=== PATIENT | female | born 1950 | race African-American/Black ===

== ENCOUNTER 2024-03-24 08:45 | Outpatient (CLI) | payer MEDICARE, SELFPAY ==
[2024-03-24 09:29] LABS: Anion Gap 8 mmol/L (4-12); Blood Urea Nitrogen 17 mg/dL (7-17); Calcium 9.5 mg/dL (8.4-10.2); Carbon Dioxide 31 mmol/L (22-30); Chloride 103 mmol/L (98-107); Estimated Glomerular Filt Rate > 60; Glucose 122 mg/dL (65-110); Potassium 4.2 mmol/L (3.4-5.0); Sodium 142 mmol/L (137-145)
[2024-03-24 09:33] LABS: Hemoglobin A1C 6.5 % (<5.7)
[2024-03-24 09:35] LABS: Creatinine Urine 31.8 mg/dL
[2024-03-24 09:40] LABS: MALB Creatinine Ratio 19.5 mg/g (0-30); Microalbumin Urine Random 6.2 mg/L (0-16.7)
[2024-03-24 09:51] LABS: Free T4 Free Thyroxine 1.65 ng/mL (0.78-2.19)
[2024-03-24 10:37] LABS: Folic Acid 6.7 ng/mL (2.76->20); Vitamin B12 > 1000.0 pg/mL (239-931)
[2024-03-24 11:26] LABS: Thyroid Stimulating Hormone 0.404 uIU/mL (0.465-4.680)
== END 2024-03-24 08:46 | disposition home or self-care (01) ==
LOC: ANHLAB 08:47
PROVIDERS: PCP Internal Medicine; Visit Provider Internal Medicine
DX: E03.9 Hypothyroidism, unspecified (principal); E53.8 Deficiency of other specified B group vitamins; I10 Essential (primary) hypertension; E11.9 Type 2 diabetes mellitus without complications; Z79.899 Other long term (current) drug therapy
CPT/HCPCS: 36415; 80048; 82043; 82607; 82746; 83036; 84439; 84443

== ENCOUNTER 2024-04-10 10:21 | Outpatient (CLI) | payer MEDICARE, SELFPAY ==
--- NOTE | ~2024-04-10 | US_ITS ---
EXAMINATION: US carotid duplex BI DATE: 04/10/2024 11:11 INDICATION: Other specified symptoms and signs involving the circulatory system. TECHNIQUE: Grayscale, color Doppler, and pulsed Doppler images of the cervical carotid arteries were obtained. The degree of vessel stenosis is placed in one of the following categories: normal, <50%, 5 0-69%, >=70% but less than near-occlusion, near-occlusion, or total occlusion. Note that percent sten osis relative to normal distal artery lumen diameter is indirectly measured from velocity measurement s as described by Ari, et al. Radiology 2003; 229:340-346. COMPARISON: None. FINDINGS: RIGHT: The right common carotid artery (CCA) peak systolic velocity (PSV) is 44 cm/s. The right internal car otid artery (ICA) PSV is 71 cm/s. The right ICA end-diastolic velocity (EDV) is 29 cm/s. The right IC A/CCA PSV ratio is 1.6. Grayscale and color Doppler images yield an estimate of <50% diameter reducti on from plaque in the ICA. The external carotid artery (ECA) PSV is 45 cm/s. There is antegrade flow in the right vertebral artery. LEFT: The left CCA PSV is 38 cm/s. The left ICA PSV is 20 cm/s. The left ICA EDV is 26 cm/s. The left ICA/C CA PSV ratio is 1.9. Grayscale and color Doppler images yield an estimate of <50% diameter reduction from plaque in the ICA. The ECA PSV is 37 cm/s. There is antegrade flow in the left vertebral artery. IMPRESSION: 1. <50% stenosis in the right internal carotid artery. 2. <50% stenosis in the left internal carotid artery. 3. Cardiac arrhythmia is present. Correlate with EKG. Reviewed, dictated and finalized at location A. [employer]
== END 2024-04-10 10:22 | disposition home or self-care (01) ==
PROVIDERS: PCP Internal Medicine; Visit Provider Internal Medicine
DX: R09.89 Other specified symptoms and signs involving the circulatory and respiratory systems (principal); I65.23 Occlusion and stenosis of bilateral carotid arteries
CPT/HCPCS: 93880

== ENCOUNTER 2024-10-09 09:07 | Outpatient (CLI) | payer MEDICARE, SELFPAY ==
--- OUTSIDE RECORDS SUMMARY | 2024-10-09 09:23 | XMS_ITS | Clinical Summary ---
Author Organization [facility] Address [address] [place] [address] Care Team Providers Care Certified Ju[employer]ation Officer Name Role Phone Roxanne Werner MD Unavailable Ata Bronson DPM Unavailable Jeannie Graham MD Primary Care Provider Allergies Active Allergy Reactions Criticality Noted Date Comments Sulfa (Sulfonamide Antibiotics) Itching Low 10/2012 Medications cyanocobalamin (Vitamin B-12) 1,000 mcg sublingual tablet Take 1 tablet (1,000 mcg total) by mouth daily Active cholecalciferol, vitamin D3, (VITAMIN D3 ORAL) Take 2,000-5,000 Units by mouth daily 3 Active meclizine (ANTIVERT) 12.5 mg tablet Take 1 tablet (12.5 mg total) by mouth 3 (three) times a day as needed for dizziness Active ondansetron (ZOFRAN) 4 mg tablet Take 1 tablet (4 mg total) by mouth every 8 (eight) hours as needed for nausea or vomiting Active prochlorperazine (COMPAZINE) 10 mg tablet Take 1 tablet (10 mg total) by mouth every 6 (six) hours as needed for nausea or vomiting Active cyclobenzaprine (FLEXERIL) 10 mg tablet Take 1 tablet (10 mg total) by mouth 3 (three) times a day as needed for muscle spasms Active potassium chloride ER (Klor-Con M20) 20 mEq CR tablet Take 1 tablet (20 mEq total) by mouth daily 90 tablet 3 4 Active metoprolol tartrate (LOPRESSOR) 50 mg immediate release tabletIndications: Essential hypertension, benign TAKE 1 TABLET BY MOUTH TWICE DAILY 180 tablet 3 4 Active furosemide (LASIX) 20 mg tabletIndications: Diastolic dysfunction TAKE 1 TABLET BY MOUTH EVERY DAY 90 tablet 3 4 Active NIFEdipine XL 60 mg 24 hr tablet TAKE 1 TABLET BY MOUTH DAILY 90 tablet 3 4 Active oxyBUTYnin (DITROPAN) 5 mg tablet TAKE 1 TABLET BY MOUTH TWICE DAILY 200 tablet 3 4 Active rosuvastatin (CRESTOR) 5 mg tablet TAKE 1 TABLET BY MOUTH DAILY AT NIGHT 100 tablet 3 4 Active metFORMIN (GLUCOPHAGE) 500 mg tablet Take 1 tablet (500 mg total) by mouth 2 (two) times a day 4 Active dapagliflozin propanediol (FARXIGA) 5 mg tablet Take 1 tablet (5 mg total) by mouth daily Active warfarin (COUMADIN) 1 mg tablet Take 1 tablet (1 mg total) by mouth daily 30 tablet 11 5 Active levothyroxine (SYNTHROID) 112 mcg tabletIndications: Postoperative hypothyroidism TAKE 1 TABLET BY MOUTH EARLY IN THE MORNING BEFORE BREAKFAST 90 tablet 5 Active warfarin (COUMADIN) 4 mg tabletIndications: PAF (paroxysmal atrial fibrillation) (HCC) TAKE 1 TABLET (4 MG TOTAL) BY MOUTH DAILY PATIENT MUST HAVE LABS DRAWN BEFORE ANY MORE REFILLS CAN BE GIVEN. 30 tablet 2 5 11/27/19 25 Active Active Problems Problem Noted Date Diagnosed Date Atrial fibrillation 05/17/2024 Hepatitis B core antibody positive 01/26/2024 Overview (01/26/2024): Resolved infection. Recheck in 1 year Chronic pain of left ankle 12/15/2023 Assessment & Plan (01/19/2024 12:53 PM CDT): -not at goal -advised patient to keep scheduled appointment with Podiatry on 01/20/2024 Assessment & Plan (12/15/2023 1:33 PM CDT): -festus -Hernando criteria for DVT: 0 -left ankle x-ray ordered today -referral placed to Podiatry -advised patient apply ice 3 times a day for 10-15 minutes at a time and elevate the foot when possible -recommend OTC ibuprofen 400 mg 2-3 times daily as needed to help with pain and swelling -follow up as needed Swelling of left ankle joint 12/15/2023 Assessment & Plan (12/15/2023 1:34 PM CDT): -new -Hernando criteria for DVT: 0 -left ankle x-ray ordered today -referral placed to Podiatry -advised patient apply ice 3 times a day for 10-15 minutes at a time and elevate the foot when possible -recommend OTC ibuprofen 400 mg 2-3 times daily as needed to help with pain and swelling -recommend going to ED if experiencing worsening swelling/pain or if extremity is hot to the touch -follow up as needed Nausea 07/12/2023 Assessment & Plan (07/14/2023 2:07 PM SQL ARCHITECT): -chronic, stable -Discussed/ordered labs -continue on Compazine 10 mg every 6 hours as needed Vitamin B12 deficiency 07/12/2023 Assessment & Plan (01/17/2024 8:01 AM CDT): -chronic, stable -Discussed/ordered labs -continue on OTC vitamin B12 supplement daily Assessment & Plan (07/14/2023 2:08 PM SQL ARCHITECT): -chronic, unknown, no data to review at this time to make an evaluation -Discussed/ordered labs -continue on OTC vitamin B12 supplement daily Vitamin D deficiency 07/12/2023 Assessment & Plan (01/17/2024 8:00 AM CDT): -chronic, stable -Discussed/ordered labs -continue on vitamin D3 supplement 5000 units daily Assessment & Plan (07/14/2023 2:08 PM SQL ARCHITECT): -chronic, unknown, no data to review at this time to make an evaluation -Discussed/ordered labs -continue on vitamin D3 supplement 5000 units daily Chronic cough 01/27/2023 Assessment & Plan (01/19/2024 12:53 PM CDT): -chronic, stable -Discussed/ordered labs -patient reports she stopped taking Flonase -continue follow up with the ENT as needed Assessment & Plan (07/14/2023 2:04 PM SQL ARCHITECT): -chronic, stable -Discussed/ordered labs -continue on Flonase 2 sprays per nostril daily -continue follow up with the ENT Assessment & Plan (02/09/2023 9:24 AM CDT): Will order PFT. She is follow-up with ENT in March. Pending PFT results will consider referral to pulmonology as well. Differential includes her chronic heart failure, GERD, allergic rhinitis, Assessment & Plan (01/27/2023 9:15 AM CDT): Flonase 2 sprays into each nostril while looking down over the sink, do not sniff in or blow nose after use for at least 30 minutes daily Zpak with a meal daily Follow up in 6 weeks for recheck Vertigo 50 ounces of caffeine free and soda free fluid daily Dysfunction of both eustachian tubes 01/27/2023 Assessment & Plan (01/27/2023 9:15 AM CDT): Flonase 2 sprays into each nostril while looking down over the sink, do not sniff in or blow nose after use for at least 30 minutes daily Zpak with a meal daily Follow up in 6 weeks for recheck Vertigo 50 ounces of caffeine free and soda free fluid daily Dizziness and giddiness 01/27/2023 Assessment & Plan (07/14/2023 2:05 PM SQL ARCHITECT): -chronic, stable -Discussed/ordered labs -continue on Flonase 2 sprays per nostril daily and meclizine 12.5 mg 3 times daily as needed -continue seeing ENT Assessment & Plan (03/19/2023 9:11 AM SQL ARCHITECT): Continue the Nasal saline and Flonase Call if Dizziness does not continue to improve 50 ounces of caffeine free and soda free fluid daily Assessment & Plan (02/09/2023 9:25 AM CDT): Improved. Assessment & Plan (01/27/2023 9:15 AM CDT): Follow up in 6 weeks for recheck Vertigo 50 ounces of caffeine free and soda free fluid daily Hypertensive kidney disease with stage 3a chronic kidney disease 10/21/2022 Assessment & Plan (01/19/2024 12:53 PM CDT): -chronic, stable -Discussed/ordered labs -continue seeing Cardiology -continue seeing Nephrology -continue on Eliquis 5 mg every 12 hours, furosemide 20 mg daily, metoprolol 50 mg twice daily, nifedipine XL 60 mg daily, potassium ER 20 mEq twice daily, Rosuvastatin 5 mg daily Assessment & Plan (07/14/2023 2:03 PM SQL ARCHITECT): -chronic, stable -Discussed/ordered labs -continue seeing Cardiology -continue seeing Nephrology -continue on Eliquis 5 mg every 12 hours, furosemide 20 mg daily, metoprolol 50 mg twice daily, nifedipine XL 60 mg daily, potassium ER 20 mEq twice daily, Rosuvastatin 5 mg daily Assessment & Plan (05/04/2023 3:52 PM SQL ARCHITECT): Stable. Blood pressure is well controlled today. Last GFR was 44. Recheck BMP today. Will refer back to Nephrology Assessment & Plan (10/21/2022 8:56 AM CDT): Blood pressure well controlled. gfr 40. Will continue to monitor. Recheck bmp in 3 months. Diastolic dysfunction 10/21/2022 Overview (10/21/2022): Monitor for SOB, fatigue, weight gain, etc. Assessment & Plan (07/14/2023 2:02 PM SQL ARCHITECT): -chronic, stable -Discussed/ordered labs -continue seeing Cardiology -continue on Eliquis 5 mg every 12 hours, furosemide 20 mg daily, metoprolol 50 mg twice daily, nifedipine XL 60 mg daily, potassium ER 20 mEq twice daily, Rosuvastatin 5 mg daily Assessment & Plan (05/04/2023 3:53 PM SQL ARCHITECT): History of diastolic dysfunction. Patient follows with Cardiology. Continues on Lasix 20 mg once daily. She is also on potassium gluconate. Continues to have swelling in her ankles but denies any shortness a breath or fatigue today. Assessment & Plan (10/21/2022 8:47 AM CDT): Stable. Continue furosemide. Continue to follow up with cardiology. Hyperlipidemia 10/14/2022 Assessment & Plan (01/17/2024 8:00 AM CDT): -chronic, stable -Discussed/ordered labs -continue seeing Cardiology -continue on Eliquis 5 mg every 12 hours, furosemide 20 mg daily, metoprolol 50 mg twice daily, nifedipine XL 60 mg daily, potassium ER 20 mEq twice daily, Rosuvastatin 5 mg daily Assessment & Plan (07/14/2023 2:03 PM SQL ARCHITECT): -chronic, stable -Discussed/ordered labs -continue seeing Cardiology -continue on Eliquis 5 mg every 12 hours, furosemide 20 mg daily, metoprolol 50 mg twice daily, nifedipine XL 60 mg daily, potassium ER 20 mEq twice daily, Rosuvastatin 5 mg daily Sound sensitivity in right ear 08/06/2022 Assessment & Plan (08/10/2022 9:05 AM CDT): This is a new problem echo right ear. May have a slight fluid behind ear drum. May try fluticasone nasal spray daily for 4-8 weeks, but I told her if it is does not improve, she needs to go to audiology for hearing exam. Was going to refer today, but pt wished to wait and see if it would improve. Edema of both ankles 06/18/2022 Assessment & Plan (07/14/2023 2:06 PM SQL ARCHITECT): -chronic, stable -Discussed/ordered labs -continue seeing Cardiology -continue on Eliquis 5 mg every 12 hours, furosemide 20 mg daily, metoprolol 50 mg twice daily, nifedipine XL 60 mg daily, potassium ER 20 mEq twice daily, Rosuvastatin 5 mg daily Assessment & Plan (06/18/2022 11:11 AM SQL ARCHITECT): HPI: Condition is not at/near goal swelling goes down overnight A&P: Discussed/ordered labs, encouraged healthy, low carbohydrate lifestyle and at least 150min/week of exercise Monitor sodium intake to see how much you are really taking in. Should be equal to or lower than 2000mg of sodium daily Continue taking furosemide 20mg once daily. Work on increasing leg elevation during the day Get Up and walking Wear compression stockings Chronic right shoulder pain 06/18/2022 Assessment & Plan (06/18/2022 11:14 AM SQL ARCHITECT): HPI: Condition is not at/near goal A&P: Discussed/ordered labs, encouraged healthy, low carbohydrate lifestyle and at least 150min/week of exercise. Pt reports that her R shoulder has been hurting over the past month. Pt states that she thinks it may be from babysitting her grandson and picking him up. Pt denies any known injury that she knows of. Denies numbness and tingling Physical therapy , reviewed shoulder xray from Apr 2022 showed arthritis Muscle rubs, massage, we will give muscle relaxer to use at bedtime It will make you drowsy so don't use it at bedtime. Chronic left-sided low back pain without sciatic a 04/22/2022 Assessment & Plan (07/14/2023 2:05 PM SQL ARCHITECT): -chronic, stable -Discussed/ordered labs -continue on cyclobenzaprine 3 times daily as needed and OTC muscle rub Assessment & Plan (06/18/2022 11:12 AM SQL ARCHITECT): HPI: Condition is not at/near goal A&P: Discussed/ordered labs, encouraged healthy, low carbohydrate lifestyle and at least 150min/week of exercise. Pt has not been using Voltaren gel. Pt denies stretching or doing other home remedies to help her back We will do xray lumbar spine today Physical therapy Muscle rubs such as biofreeze/icy hot Massage may help Assessment & Plan (04/22/2022 8:21 AM SQL ARCHITECT): Does not wish to seek further treatment, PT or medication at this time. Will call if pain worsens/changes Class 1 obesity due to exces s calories with serious comorbidity and body mass index (BMI) of 30.0 to 30.9 in adult 04/08/2021 Assessment & Plan (01/17/2024 8:01 AM CDT): -chronic, stable goal BMI <30 Healthy, high-protein, lower carbohydrate, lower fat lifestyle and exercise for 150min/week recommended Recommend tracking everything you put in your mouth on an boom like Ambature Hand Measurements: A fist or cupped hand = 1 cup 1 cup = 1 -2 servings of fruit juice 1 oz. of cold cereal 2 oz. of cooked cereal, rice or pasta 8 oz. of milk or yogurt A thumb = 1 oz. of cheese Consuming low-fat cheese helps you meet the required servings from the milk, yogurt and cheese group. 1 oz. of low-fat cheese counts as 8 oz. of milk or yogurt. Handful = 1-2 oz. of snack food Thumb tip = 1 teaspoon Keep high-fat foods, such as peanut butter and mayonnaise, at a minimum. One teaspoon is equal to the end of your thumb, from the knuckle up. Three teaspoons equals 1 tablespoon. Palm = 3 oz. of meat Choose lean poultry, fish, shellfish and beef. One palm size portion equals 3 oz. for an adult and 1 -2 oz. for a child under 5. 1 tennis ball or a fist= 1/2 cup of fruit and vegetables Healthy diets include a variety of colorful fruits and vegetables every day. The secret to serving size is in your hand. Snacking can add up. Because hand sizes vary, compare your fist size to an actual measuring cup. Assessment & Plan (12/15/2023 1:33 PM CDT): -chronic, stable goal BMI <30 Healthy, high-protein, lower carbohydrate, lower fat lifestyle and exercise for 150min/week recommended Recommend tracking everything you put in your mouth on an boom like Ambature Hand Measurements: A fist or cupped hand = 1 cup 1 cup = 1 -2 servings of fruit juice 1 oz. of cold cereal 2 oz. of cooked cereal, rice or pasta 8 oz. of milk or yogurt A thumb = 1 oz. of cheese Consuming low-fat cheese helps you meet the required servings from the milk, yogurt and cheese group. 1 oz. of low-fat cheese counts as 8 oz. of milk or yogurt. Handful = 1-2 oz. of snack food Thumb tip = 1 teaspoon Keep high-fat foods, such as peanut butter and mayonnaise, at a minimum. One teaspoon is equal to the end of your thumb, from the knuckle up. Three teaspoons equals 1 tablespoon. Palm = 3 oz. of meat Choose lean poultry, fish, shellfish and beef. One palm size portion equals 3 oz. for an adult and 1 -2 oz. for a child under 5. 1 tennis ball or a fist= 1/2 cup of fruit and vegetables Healthy diets include a variety of colorful fruits and vegetables every day. The secret to serving size is in your hand. Snacking can add up. Because hand sizes vary, compare your fist size to an actual measuring cup. Assessment & Plan (07/14/2023 2:05 PM SQL ARCHITECT): -chronic, stable goal BMI <30 Healthy, high-protein, lower carbohydrate, lower fat lifestyle and exercise for 150min/week recommended Recommend tracking everything you put in your mouth on an boom like Bracketrpal Hand Measurements: A fist or cupped hand = 1 cup 1 cup = 1 -2 servings of fruit juice 1 oz. of cold cereal 2 oz. of cooked cereal, rice or pasta 8 oz. of milk or yogurt A thumb = 1 oz. of cheese Consuming low-fat cheese helps you meet the required servings from the milk, yogurt and cheese group. 1 oz. of low-fat cheese counts as 8 oz. of milk or yogurt. Handful = 1-2 oz. of snack food Thumb tip = 1 teaspoon Keep high-fat foods, such as peanut butter and mayonnaise, at a minimum. One teaspoon is equal to the end of your thumb, from the knuckle up. Three teaspoons equals 1 tablespoon. Palm = 3 oz. of meat Choose lean poultry, fish, shellfish and beef. One palm size portion equals 3 oz. for an adult and 1 -2 oz. for a child under 5. 1 tennis ball or a fist= 1/2 cup of fruit and vegetables Healthy diets include a variety of colorful fruits and vegetables every day. The secret to serving size is in your hand. Snacking can add up. Because hand sizes vary, compare your fist size to an actual measuring cup. Assessment & Plan (06/18/2022 11:13 AM SQL ARCHITECT): HPI: Condition is stable goal BMI <30 A&P: Healthy, high-protein, lower carbohydrate, lower fat lifestyle and exercise for 150min/week recommended Recommend tracking everything you put in your mouth on an boom like Ambature Lower carb substitutions: Aldi carries a zero net carb bread If you are looking for whole potatoes, like to use in soup or new potato shape/flavor, radishes are a great replacement If you are looking for mashed potatoes, riced cauliflower in the frozen bag section are a great replacement For pasta, try using zucchini noodles, lay them out on a cookie sheet and pat dry with a tea towel to try to remove as much moisture as possible. Heat your pasta sauce on the stove and put the noodles in for 30-45 seconds. If you leave them in much longer they will become mushy Caroleen and/or coconut flour instead of regular flour For pizza dough, try fathead pizza dough recipe online. To get a crispy crust, bake on one side for 8-12 min, then flip over and bake on the other side for 8-12 min, then put toppings on and bake until the cheese on top of pizza melts chaffles recipe online For ice cream, try the brand Enlightened To replace coffee creamer and make it low carb, use heavy creamer with sugar free Torani sweetener For chips, try Whisps or pork rinds For yogurt, try Two Good comoran yogurt Use Pinteryobani for recipe ideas. Type in low carb... Hand Measurements: A fist or cupped hand = 1 cup 1 cup = 1 -2 servings of fruit juice 1 oz. of cold cereal 2 oz. of cooked cereal, rice or pasta 8 oz. of milk or yogurt A thumb = 1 oz. of cheese Consuming low-fat cheese helps you meet the required servings from the milk, yogurt and cheese group. 1 oz. of low-fat cheese counts as 8 oz. of milk or yogurt. Handful = 1-2 oz. of snack food Thumb tip = 1 teaspoon Keep high-fat foods, such as peanut butter and mayonnaise, at a minimum. One teaspoon is equal to the end of your thumb, from the knuckle up. Three teaspoons equals 1 tablespoon. Palm = 3 oz. of meat Choose lean poultry, fish, shellfish and beef. One palm size portion equals 3 oz. for an adult and 1 -2 oz. for a child under 5. 1 tennis ball or a fist= 1/2 cup of fruit and vegetables Healthy diets include a variety of colorful fruits and vegetables every day. The secret to serving size is in your hand. Snacking can add up. Remember, 1 handful equals 1 oz. of nuts and small candies. For chips and pretzels, 2 handfuls equals 1 oz. Because hand sizes vary, compare your fist size to an actual measuring cup. Assessment & Plan (04/22/2022 8:20 AM SQL ARCHITECT): BMI Follow-up includes: exercise counseling. Assessment & Plan (10/16/2021 11:09 AM CDT): HPI: Condition is improving, but not at goal goal BMI <30 A&P: Healthy, high-protein, lower carbohydrate, lower fat lifestyle and exercise for 150min/week recommended Recommend tracking everything you put in your mouth on an boom like Ambature Lower carb substitutions: Aldi carries a zero net carb bread If you are looking for whole potatoes, like to use in soup or new potato shape/flavor, radishes are a great replacement If you are looking for mashed potatoes, riced cauliflower in the frozen bag section are a great replacement For pasta, try using zucchini noodles, lay them out on a cookie sheet and pat dry with a tea towel to try to remove as much moisture as possible. Heat your pasta sauce on the stove and put the noodles in for 30-45 seconds. If you leave them in much longer they will become mushy Caroleen and/or coconut flour instead of regular flour For pizza dough, try fathead pizza dough recipe online. To get a crispy crust, bake on one side for 8-12 min, then flip over and bake on the other side for 8-12 min, then put toppings on and bake until the cheese on top of pizza melts chaffles recipe online For ice cream, try the brand Enlightened To replace coffee creamer and make it low carb, use heavy creamer with sugar free Torani sweetener For chips, try Whisps or pork rinds For yogurt, try Two Good comoran yogurt Use Gregorio for recipe ideas. Type in low carb... Hand Measurements: A fist or cupped hand = 1 cup 1 cup = 1 -2 servings of fruit juice 1 oz. of cold cereal 2 oz. of cooked cereal, rice or pasta 8 oz. of milk or yogurt A thumb = 1 oz. of cheese Consuming low-fat cheese helps you meet the required servings from the milk, yogurt and cheese group. 1 oz. of low-fat cheese counts as 8 oz. of milk or yogurt. Handful = 1-2 oz. of snack food Thumb tip = 1 teaspoon Keep high-fat foods, such as peanut butter and mayonnaise, at a minimum. One teaspoon is equal to the end of your thumb, from the knuckle up. Three teaspoons equals 1 tablespoon. Palm = 3 oz. of meat Choose lean poultry, fish, shellfish and beef. One palm size portion equals 3 oz. for an adult and 1 -2 oz. for a child under 5. 1 tennis ball or a fist= 1/2 cup of fruit and vegetables Healthy diets include a variety of colorful fruits and vegetables every day. The secret to serving size is in your hand. Snacking can add up. Remember, 1 handful equals 1 oz. of nuts and small candies. For chips and pretzels, 2 handfuls equals 1 oz. Because hand sizes vary, compare your fist size to an actual measuring cup. Assessment & Plan (04/08/2021 9:43 AM SQL ARCHITECT): HPI: Condition is not at/near goal goal BMI <30 A&P: Healthy, high-protein, lower carbohydrate, lower fat lifestyle and exercise for 150min/week recommended Substitutions: Recommend tracking everything you put in your mouth on an boom like Ambature or [employer] Aldi carries a zero net carb bread If you are looking for whole potatoes, like to use in soup or new potato shape/flavor, radishes are a great replacement If you are looking for mashed potatoes, riced cauliflower in the frozen bag section are a great replacement For pasta, try using zucchini noodles, lay them out on a cookie sheet and pat dry with a tea towel to try to remove as much moisture as possible. Heat your pasta sauce on the stove and put the noodles in for 30-45 seconds. If you leave them in much longer they will become mushy Caroleen and/or coconut flour instead of regular flour For pizza dough, try fathead pizza dough recipe online. To get a crispy crust, bake on one side for 8-12 min, then flip over and bake on the other side for 8-12 min, then put toppings on and bake until the cheese on top of pizza melts chaffles recipe online For ice cream, try the brand Enlightened To replace coffee creamer and make it low carb, use heavy creamer with sugar free Torani sweetener For chips, try Whisps or pork rinds For yogurt, try Two Good comoran yogurt Use Gregorio for recipe ideas. Type in low carb... Paroxysmal atrial fibrillation 07/23/2020 Assessment & Plan (01/17/2024 8:00 AM CDT): -chronic, stable -Discussed/ordered labs -continue seeing Cardiology -continue on Eliquis 5 mg every 12 hours, furosemide 20 mg daily, metoprolol 50 mg twice daily, nifedipine XL 60 mg daily, potassium ER 20 mEq twice daily, Rosuvastatin 5 mg daily Assessment & Plan (07/14/2023 2:03 PM SQL ARCHITECT): -chronic, stable -Discussed/ordered labs -continue seeing Cardiology -continue on Eliquis 5 mg every 12 hours, furosemide 20 mg daily, metoprolol 50 mg twice daily, nifedipine XL 60 mg daily, potassium ER 20 mEq twice daily, Rosuvastatin 5 mg daily Assessment & Plan (08/06/2022 8:58 AM CDT): Stable. Continue eliquis, metoprolol, Assessment & Plan (04/22/2022 8:01 AM SQL ARCHITECT): Stable. Managed by cardiology. Remains on eliquis for a-fib Assessment & Plan (10/16/2021 11:11 AM CDT): HPI: Condition is stable A&P: Discussed/ordered labs, encouraged healthy, low carbohydrate lifestyle and at least 150min/week of exercise, continue on Eliquis 5mg every 12 hours, furosemide 20mg daily, metoprolol tartrate 25mg twice daily, nifedipine 60mg daily, postassium 99mg twice daily, rosuvastatin 5mg daily Continue f/u with cardiology Dr. Werner Assessment & Plan (04/08/2021 8:57 AM SQL ARCHITECT): HPI: Condition is stable A&P: Discussed/ordered labs, encouraged healthy, low carbohydrate lifestyle and at least 150min/week of exercise, continue on Eliquis 5 mg twice daily Continue to see Dr. Elizabeth- cardiology Assessment & Plan (02/25/2021 11:14 AM CDT): Patient has had no evidence for any persistent recurrence of her atrial fibrillation. She will continue with long-term rate suppression and anticoagulation. Assessment & Plan (08/26/2020 12:36 PM CDT): Patient's rhythm was regular again today in the office. She remains asymptomatic with any of her possible paroxysms in between office visits. Presently she is continuing with anticoagulation that she receives as samples otherwise we can make conversion to long-term warfarin. Assessment & Plan (07/23/2020 3:17 PM CDT): ECG today suggests the patient's atrial fibrillation spontaneously converted to sinus rhythm. At this time she will continue with long-term anticoagulation. Chronic diastolic (congestive) heart failure Assessment & Plan (01/19/2024 12:52 PM CDT): -chronic, stable -Discussed/ordered labs -continue seeing Cardiology -continue on Eliquis 5 mg every 12 hours, furosemide 20 mg daily, metoprolol 50 mg twice daily, nifedipine XL 60 mg daily, potassium ER 20 mEq twice daily, Rosuvastatin 5 mg daily Assessment & Plan (07/14/2023 2:03 PM SQL ARCHITECT): -chronic, stable -Discussed/ordered labs -continue seeing Cardiology -continue on Eliquis 5 mg every 12 hours, furosemide 20 mg daily, metoprolol 50 mg twice daily, nifedipine XL 60 mg daily, potassium ER 20 mEq twice daily, Rosuvastatin 5 mg daily Assessment & Plan (10/21/2022 8:57 AM CDT): Symptoms are stable. Continue to follow-up with cardiology. Continue metoprolol 25 mg twice daily. Assessment & Plan (08/10/2022 9:05 AM CDT): This is a worsening problem Suspect mild hf due to cough, increased swelling in ankles. Fine crackles on exam. Will increase lasix for 2 weeks and then try to decrease back down. Have her f/u in 2 weeks for recheck. She just had echo last March. She has cardiology f/u in October. Assessment & Plan (10/16/2021 11:11 AM CDT): HPI: Condition is stable A&P: Discussed/ordered labs, encouraged healthy, low carbohydrate lifestyle and at least 150min/week of exercise, continue on Eliquis 5mg every 12 hours, furosemide 20mg daily, metoprolol tartrate 25mg twice daily, nifedipine 60mg daily, postassium 99mg Twice daily, rosuvastatin 5mg daily Continue f/u with cardiology Dr. Werner Assessment & Plan (04/08/2021 8:55 AM SQL ARCHITECT): HPI: Condition is stable A&P: Discussed/ordered labs, encouraged healthy, low carbohydrate lifestyle and at least 150min/week of exercise, continue on Furosemide 20 mg daily, Metoprolol tartrate 25 mg twice daily, nifedipine 60 mg Daily, potassium chloride 10 mEq twice daily, rosuvastatin 5 mg daily Continue to see Dr. Elizabeth- cardiology Assessment & Plan (02/25/2021 11:14 AM CDT): Patient remains free of any symptoms to suggest heart failure or angina. She will continue with aggressive blood pressure management and start managing a blood pressure log for review. Assessment & Plan (08/26/2020 12:36 PM CDT): Patient has had no symptoms of heart failure presently. She will continue with aggressive blood pressure control and maintenance of sinus rhythm. Assessment & Plan (07/23/2020 3:25 PM CDT): I will re-evaluate patient's metabolic panel and proBNP value. If this is not shown improvement from her hospitalization we may want to consider the addition of loop diuretic. Current use of correction anticoagulation 021 Assessment & Plan (01/17/2024 8:01 AM CDT): -chronic, stable -Discussed/ordered labs -continue on Eliquis 5 mg every 12 hours -continue seeing Cardiology Assessment & Plan (07/14/2023 2:05 PM SQL ARCHITECT): -chronic, stable -Discussed/ordered labs -continue on Eliquis 5 mg every 12 hours -continue seeing Cardiology Assessment & Plan (10/16/2021 11:10 AM CDT): HPI: Condition is stable A&P: Discussed/ordered labs, encouraged healthy, low carbohydrate lifestyle and at least 150min/week of exercise, continue on eliquis 5mg every 12 hours Continue f/u with cardiology Dr. Werner every 6 mo Assessment & Plan (04/08/2021 9:24 AM SQL ARCHITECT): HPI: Condition is stable A&P: Discussed/ordered labs, encouraged healthy, low carbohydrate lifestyle and at least 150min/week of exercise, continue on Eliquis 5 mg twice daily continue follow-up with cardiology-Dr. Elizabeth Assessment & Plan (02/25/2021 11:14 AM CDT): Patient has had no major bleeding events, she will continue with long-term anticoagulation. Hypokalemia 06/06/2020 Assessment & Plan (07/14/2023 2:03 PM SQL ARCHITECT): -chronic, stable -Discussed/ordered labs -continue seeing Cardiology -continue on Eliquis 5 mg every 12 hours, furosemide 20 mg daily, metoprolol 50 mg twice daily, nifedipine XL 60 mg daily, potassium ER 20 mEq twice daily, Rosuvastatin 5 mg daily Assessment & Plan (05/04/2023 3:54 PM SQL ARCHITECT): Received critical results after patient left. BMP showed potassium of 3. Will change her potassium gluconate back to potassium chloride. Start her with 20 mg twice daily for 7 days and then recheck BMP. If normal will decrease her back down to 20 mg once daily. Assessment & Plan (11/23/2020 1:48 AM CDT): Recheck BMP in 1 week with Furosemide adjustment Assessment & Plan (09/30/2020 8:44 AM CDT): Within normal range at 08/27/20 recheck. Type 2 diabetes mellitus wit h stage 3a chronic kidney disease, without long-term current use of insulin 08/17/2016 Assessment & Plan (01/17/2024 8:00 AM CDT): -chronic, stable -Discussed/ordered labs -recommend healthy low carb diet and increase exercise Assessment & Plan (07/14/2023 2:07 PM SQL ARCHITECT): -chronic, stable -Discussed/ordered labs -recommend healthy low carb diet and increase exercise Assessment & Plan (05/04/2023 3:52 PM SQL ARCHITECT): Will recheck hemoglobin A1c today. Recommended healthy diet, incorporating fruits, vegetables and adequate amounts of water along with mild-moderate daily exercise as tolerated; Assessment & Plan (08/06/2022 9:05 AM CDT): Had A1c drawn in June and labs A1c was 6.3%. Recommend low carb diet. Continue her exercise habits. Will continue to monitor Assessment & Plan (04/22/2022 8:01 AM SQL ARCHITECT): Stable. Recommended healthy diet, incorporating fruits, vegetables and adequate amounts of water along with mild-moderate daily exercise as tolerated; Assessment & Plan (10/16/2021 7:24 AM CDT): HPI: Condition is stable A&P: Discussed/ordered labs, encouraged healthy, low carbohydrate lifestyle and at least 150min/week of exercise Assessment & Plan (04/08/2021 7:19 AM SQL ARCHITECT): HPI: Condition is stable A&P: Discussed/ordered labs, encouraged healthy, low carbohydrate lifestyle and at least 150min/week of exercise History of adenomatous polyp of colon 04/07/2016 Overview (04/08/2021): Last colonoscopy 07/[address] Noguera (GI) Repeat in 5 yrs. Assessment & Plan (01/17/2024 8:01 AM CDT): Last colonoscopy completed 07/15/2020 Repeat in 5 years Assessment & Plan (07/14/2023 2:06 PM SQL ARCHITECT): Last colonoscopy completed 07/15/2020 Repeat in 5 years Assessment & Plan (10/16/2021 7:24 AM CDT): Last colonoscopy 07/[address] Noguera (GI), repeat in 5 yrs. Assessment & Plan (04/08/2021 7:20 AM SQL ARCHITECT): Last colonoscopy 07/[address] Noguera (GI) Repeat in 5 yrs. Aortic stenosis, mild 07/21/2011 Overview (07/02/2020): 05/15/2011 Study Conclusions: Summary: - Left ventricle: The cavity size was normal. Wall thickness was normal. Global systolic function was normal. The estimated ejection fraction was in the range of 55% to 60%. Diastolic function assessment consistent with abnormal left ventricular relaxation (grade 1 diastolic dysfunction). - Aortic valve: There was mild stenosis. - Right ventricle: The cavity size was normal. Systolic function was normal. Assessment & Plan (07/14/2023 2:02 PM SQL ARCHITECT): -chronic, stable -Discussed/ordered labs -continue seeing Cardiology -continue on Eliquis 5 mg every 12 hours, furosemide 20 mg daily, metoprolol 50 mg twice daily, nifedipine XL 60 mg daily, potassium ER 20 mEq twice daily, Rosuvastatin 5 mg daily Assessment & Plan (10/16/2021 11:19 AM CDT): HPI: Condition is stable A&P: Discussed/ordered labs, encouraged healthy, low carbohydrate lifestyle and at least 150min/week of exercise, continue on Eliquis 5mg every 12 hours, furosemide 20mg daily, metoprolol tartrate 25mg twice daily, nifedipine 60mg daily, postassium 99mg twice daily, rosuvastatin 5mg daily Continue f/u with cardiology Dr. Werner Assessment & Plan (04/08/2021 7:21 AM SQL ARCHITECT): HPI: Condition is stable A&P: Discussed/ordered labs, encouraged healthy, low carbohydrate lifestyle and at least 150min/week of exercise, continue on Furosemide 20 mg daily, Metoprolol tartrate 25 mg twice daily, nifedipine 60 mg Daily, potassium chloride 10 mEq twice daily, rosuvastatin 5 mg daily Urinary incontinence 07/22/2009 Assessment & Plan (07/14/2023 2:07 PM SQL ARCHITECT): -chronic, stable -Discussed/ordered labs -continue on oxybutynin 5 mg twice daily Assessment & Plan (10/16/2021 11:18 AM CDT): HPI: Condition is not controlled A&P: Discussed/ordered labs, encouraged healthy, low carbohydrate lifestyle and at least 150min/week of exercise, stop taking the oxybutynin 5mg twice daily Trial on myrbetriq 25mg daily Assessment & Plan (04/08/2021 9:27 AM SQL ARCHITECT): HPI: Condition is stable, she reports that she is doing pretty good with this. A&P: Discussed/ordered labs, encouraged healthy, low carbohydrate lifestyle and at least 150min/week of exercise, she states that she has tried Kegel exercises in the past but they do not work for her. Pt has had surgery for it, but unsure of type. Pt would like to trial on oxybutynin 5mg twice daily Primary hypertension 03/08/2006 Assessment & Plan (01/17/2024 8:00 AM CDT): -chronic, stable -Discussed/ordered labs -continue seeing Cardiology -continue on Eliquis 5 mg every 12 hours, furosemide 20 mg daily, metoprolol 50 mg twice daily, nifedipine XL 60 mg daily, potassium ER 20 mEq twice daily, Rosuvastatin 5 mg daily Assessment & Plan (07/14/2023 2:02 PM SQL ARCHITECT): -chronic, stable -Discussed/ordered labs -continue seeing Cardiology -continue on Eliquis 5 mg every 12 hours, furosemide 20 mg daily, metoprolol 50 mg twice daily, nifedipine XL 60 mg daily, potassium ER 20 mEq twice daily, Rosuvastatin 5 mg daily Assessment & Plan (02/09/2023 9:34 AM CDT): Stable. Continue on nifedipine and metoprolol and Lasix blood pressure is well-controlled. Heart rate stable. Assessment & Plan (08/10/2022 9:04 AM CDT): Stable/ Improved. Blood pressure is adequately controlled on current medication. We will not make any medication changes today. Will have her follow-up in 6 months for continued monitoring and management Assessment & Plan (04/22/2022 8:01 AM SQL ARCHITECT): Stable/ Improved. Blood pressure is adequately controlled on current medication. We will not make any medication changes today. Will have her follow-up in 6 months for continued monitoring and management Assessment & Plan (10/16/2021 11:19 AM CDT): HPI: Condition is stable A&P: Discussed/ordered labs, encouraged healthy, low carbohydrate lifestyle and at least 150min/week of exercise, continue on Eliquis 5mg every 12 hours, furosemide 20mg daily, metoprolol tartrate 25mg twice daily, nifedipine 60mg daily, postassium 99mg twice daily, rosuvastatin 5mg daily Continue f/u with cardiology Dr. Werner Assessment & Plan (04/08/2021 7:21 AM SQL ARCHITECT): HPI: Condition is stable A&P: Discussed/ordered labs, encouraged healthy, low carbohydrate lifestyle and at least 150min/week of exercise, continue on Furosemide 20 mg daily, Metoprolol tartrate 25 mg twice daily, nifedipine 60 mg Daily, potassium chloride 10 mEq twice daily, rosuvastatin 5 mg daily Assessment & Plan (09/30/2020 8:45 AM CDT): Home blood pressure ranging 110s-130s/70-80. Will continue with Metoprolol 25 mg BID and Nifedipine 60 mg daily. Assessment & Plan (07/23/2020 3:16 PM CDT): In addition to the patient's paroxysmal atrial fibrillation I suspect her hypertension and hypertensive heart disease has contributed significantly to chronic diastolic heart failure. To better control her blood pressure I have added nifedipine to her medical regimen. It may be reasonable at some point to see change her metoprolol for labetalol should her blood pressure need additional therapy. An alternative could be the addition of chlorthalidone however she would likely require potassium replacement again. We will check her metabolic panel to see if her potassium replacement can discontinue at this time. Assessment & Plan (07/16/2020 12:26 PM SQL ARCHITECT): Patient's home blood pressures ranging 165-185/91-98. Will keep patient on Metoprolol 50mg BID since patient has not began the medication with the change (did not see [employer] message). Denies feeling symptomatic. Patient to keep home BP readings and bring to next follow up in 2 weeks with her home BP machine. Pt to let us know if she feels any adverse reaction to increasing the Metoprolol dose. Assessment & Plan (07/05/2020 1:28 PM SQL ARCHITECT): BP journal until next follow up (1-2 times daily) Will consider adjustment of BP regimen in light of those readings I would like an update on the readings over the next 3 days Continuing metoprolol Blood Pressure Follow-up: Lifestyle modifications education provided on sodium reduction, increase physical activity, reduce alcohol consumption and weight reduction. Hypothyroidism 03/08/2006 Assessment & Plan (01/17/2024 8:00 AM CDT): -chronic, stable -Discussed/ordered labs -continue on levothyroxine 112 mcg daily Assessment & Plan (07/14/2023 2:06 PM SQL ARCHITECT): -chronic, stable -Discussed/ordered labs -continue on levothyroxine 112 mcg daily Assessment & Plan (10/21/2022 8:57 AM CDT): TSH checked with recent labs last week. Euthyroid. Continue current dosage of levothyroxine Assessment & Plan (08/06/2022 8:57 AM CDT): Check TSH today. Continue current medication. . Please take levothyroxine on an empty stomach. This means 1 hour before eating or 2 hours after eating. Food in the stomach will interfere with absorption of the levothyroxine. Calcium, antacids and iron supplements will also interfere with the absorption of levothyroxine. Please take these at a different time of the day Assessment & Plan (04/22/2022 8:00 AM SQL ARCHITECT): Lipid abnormalities are stable. Pharmacotherapy as ordered. Lipids will be reassessed in 6 months. Assessment & Plan (10/16/2021 7:24 AM CDT): HPI: Condition is stable A&P: Discussed/ordered labs, encouraged healthy, low carbohydrate lifestyle and at least 150min/week of exercise, continue on levothyroxine 112mcg daily Please take levothyroxine on an empty stomach. This means 1 hour before eating or 2 hours after eating. Food in the stomach will interfere with absorption of the levothyroxine. Calcium, antacids and iron supplements will also interfere with the absorption of levothyroxine. Please take these at a different time of the day. Assessment & Plan (04/08/2021 7:19 AM SQL ARCHITECT): HPI: Condition is stable A&P: Discussed/ordered labs, encouraged healthy, low carbohydrate lifestyle and at least 150min/week of exercise, continue on Levothyroxine 112 mcg daily Please take levothyroxine on an empty stomach. This means 1 hour before eating or 2 hours after eating. Food in the stomach will interfere with absorption of the levothyroxine. Calcium, antacids and iron supplements will also interfere with the absorption of levothyroxine. Please take these at a different time of the day. Assessment & Plan (07/05/2020 1:29 PM SQL ARCHITECT): Most recent thyroid function showed normalcy Will continue levothyroxien at 112 mcg daily Resolved Problems Problem Noted Date Diagnosed Date Resolved Date Tendonitis, Achilles, left 05/04/2023 0 07/12/2023 Assessment & Plan (05/04/2023 3:53 PM SQL ARCHITECT): Refer to podiatry for Achilles tendonitis Body mass index (BMI) 31.0-31.9, adult 02/09/2023 07/14/2023 Assessment & Plan (02/09/2023 9:26 AM CDT): BMI Follow-up includes: nutrition counseling. Stage 3a chronic kidney disease 02/09/2023 07/14/2023 Assessment & Plan (05/04/2023 3:55 PM SQL ARCHITECT): Referred back to Nephrology. However today her BMP showed improvement of her kidney function with a GFR above 60. Assessment & Plan (02/09/2023 9:35 AM CDT): Will recheck BMP today. Lab Results Component Value Date GFRNAA 49 10/14/2022 Lab Results Component Value Date CREATININE 1.16 (H) 10/14/2022 Lab Results Component Value Date BUNSER 14 10/14/2022 Continue to follow a Renal diet that is low in sodium, potassium, and phosphorus. Avoid/limit foods such as fast food items, fried/breaded foods, canned goods, deli meats, gravies/sauces, bananas, tomatoes, oranges, milk, dark kathi and chocolate. [place] juice, citrus juices, and tomato juice are also high in potassium. Do not use salt substitutes, as they may contain potassium. Additional resources available online from the [employer] at www.kidney.org/nutrition Continue tight blood pressure control. Encouraged adequate fluid intake. Avoid nsaids. Will continue to monitor. Encounter for annual physical exam 08/06/2022 07/12/2023 Assessment & Plan (08/10/2022 9:03 AM CDT): -Recommended: Healthy diet. Avoiding junk food/fast food. -30 minutes of exercise most days of the week. Increase to 45 minutes for weight loss. Immunizations: Up to date follow low salt diet, routine labs ordered, call if any problems Follow-up in 1 year. Encounter for screening colonoscopy 07/08/2020 04/08/2021 Overview (07/08/2020): Added automatically from request for surgery [id number] Neuropathy 07/05/2020 07/12/2023 Overview (07/05/2020): noted during takign of history, no diagnostic workup recently will proceed with EMG first Assessment & Plan (08/10/2022 9:07 AM CDT): HPI: Patient complains of worsening pain and feet. She is seen Podiatry in the past and uses an ice bottle. Plan: I told her pain probably has increased since she has more swelling in her feet. I increased her Lasix to try to get some of the swelling off of her feet and she will try to follow-up with Podiatry as well pain continue Assessment & Plan (10/16/2021 11:13 AM CDT): HPI: Condition is stable A&P: Discussed/ordered labs, encouraged healthy, low carbohydrate lifestyle and at least 150min/week of exercise, continue seeing podiatry, no longer doing the stretching, using frozen ice bottle, tylenol as needed as she didn't notice a difference. She can still walk ok. Recommend f/u with podiatry Assessment & Plan (04/08/2021 9:25 AM SQL ARCHITECT): HPI: Condition is A&P: Discussed/ordered labs, encouraged healthy, low carbohydrate lifestyle and at least 150min/week of exercise. Pt seeing podiatry and stretching, frozen ice bottle, tylenol as needed Pneumonia due to COVID-19 virus 06/06/2020 04/08/2021 Acute kidney injury (CMS/HCC) 06/06/2020 04/08/2021 S/P cholecystectomy 06/16/2018 04/08/20 21 Paresthesia of both feet 06/07/2015 Surgery, elective 12/31/2009 04/08/2021 Cervical adenopathy 12/17/2007 04/08/20 21 Absolute anemia 03/08/2006 04/08/2021 Other specified disease of h air and hair follicles 12/03/2005 07/12/2023 Encounters Date Type Department Care Team Description 10/03/2024 Anticoagulation Visit [facility] Office Assistant [address] [place] [phone] Laura Machado MA Paroxysmal atrial fibrillation (HCC) (Primary Dx) 09/27/2024 8:15 AM CDT Lab [address] [address] PAF (paroxysmal atrial fibrillation) (HCC) 09/27/2024 Results Follow-Up [facility] Assistant [address] [place] [phone] Laura Machado MA Protime-INR 09/11/2024 Results Follow-Up [facility] Assistant [address] [place] [phone] Roxanne Werner MD Protime-INR 09/11/2024 Anticoagulation Visit [facility] Assistant [address] [place] [phone] Laura Machado MA Paroxysmal atrial fibrillation (HCC) (Primary Dx) 09/08/2024 8:00 AM CDT Lab [address] [address] PAF (paroxysmal atrial fibrillation) (HCC) 08/30/2024 Results Follow-Up [facility] Office Assistant [address] [place] [phone] Roxanne Werner MD Protime-INR 08/24/2024 10:30 AM CDT Lab [address] [address] PAF (paroxysmal atrial fibrillation) (HCC) 08/08/2024 Anticoagulation Visit [facility] Office Assistant [address] [place] [phone] Laura Machado MA Paroxysmal atrial fibrillation (HCC) (Primary Dx) 08/08/2024 Results Follow-Up [facility] Office Assistant [address] [place] [phone] Roxanne Werner MD Protime-INR 07/31/2024 8:45 AM CDT Lab [address] [address] PAF (paroxysmal atrial fibrillation) (HCC) 07/20/2024 Results Follow-Up [facility] Office Assistant at [address] [place] [phone] Roxanne Werner MD Pro B-type natriuretic peptide 07/18/2024 Telephone [facility] at [address] [place] [phone] Karolyn Evans NP Appointment 07/17/2024 8:10 AM CDT Lab [place] [id number] PAF (paroxysmal atrial fibrillation) (HCC); Longstanding persistent atrial fibrillation (HCC) from Last 3 Months Immunizations Immunization Administration Dates Next Due Influenza, Quad, Adjuvantate d, Intramuscular 03/19/2021 Influenza, Quadrivalent, Hig h Dose, Preservative Free, Intrr 02/09/2023,02/09/2022 Influenza, Trivalent, High D ose, Split, Preservative Free, Intramuscular 01/17/2024,03/05/2017,03/05/2015,05/21 Influenza, Unspecified 01/17/2024(Deferr ed: Patient Refused),03/27/2021,03/27/2021, 020 Moderna SARS-CoV-2 Monovalen t Vaccination (12+ YRS) 08/28/2020,08/28/2020,07/31/2020,07/31 Pneumococcal Conjugate PCV 13 05/17/2015 Pneumococcal Conjugate Pcv20 07/31/2021 Pneumococcal Polysaccharide PPV23 05/21/2014 Tdap 05/27/2018,03/08/2006 ZOSTER Recombinant 02/09/2022,07/31/2021 Surgical History Surgery Date Site/Laterality Comments CHOLECYSTECTOMY 05/10/2019 - 05/09/2020 REPLACEMENT TOTAL KNEE 05/10/2014 - 05/09/2015 Right TOTAL KNEE ARTHROPLASTY 05/10/2013 - 05/09/2014 Left HYSTERECTOMY 05/10/1985 - 05/09/1986 THYROIDECTOMY COLONOSCOPY 05/10/2015 - 05/09/2016 previous screen COLONOSCOPY 07/15/2020 repeat screening JOINT REPLACEMENT 2013- BLADDER SURGERY 05/10/2018 - 05/09/2019 Medical History Medical History Date Comments Hypertension Heart valve stenosis Aortic stenosis Thyroid disease Sick sinus syndrome (HCC) Atrial fibrillation (HCC) Shortness of breath Pneumonia due to COVID-19 virus 06/06/2020 Hypokalemia 06/06/2020 Acute kidney injury 06/06/2020 Absolute anemia 03/08/2006 Cervical adenopathy 12/17/2007 Cataract Nausea 07/12/2023 Family History Medical History Relation Name Comments Heart attack Brother 1 Ranjit Hankins Jr Heart attack Brother 2 Rl Hankins Heart attack Father Ranjit Hankins Sr No Known Problems Maternal Grandfather No Known Problems Maternal Grandmother Kidney disease Mother Delores Hankins chronic kidney Mother Delores Hankins at 83 yo a No Known Problems Paternal Grandfather Heart attack Paternal Grandmother Najma Foster Breast cancer Sister 1 Wanda Cotton Cancer Sister 1 Wanda Cotton breast Diabetes Sister 1 Wanda Cotton Hypertension Sister 1 Wanda Cotton Kidney disease Sister 3 Kenyatta Hankins Endometrial cancer Neg Hx Ovarian cancer Neg Hx Thyroid cancer Neg Hx Relation Name Status Comments Brother 1 Ranjit Hankins Jr Brother 2 Rl Hankins Father Ranjit Hankins Sr Maternal Grandfather Maternal Grandmother Mother Delores Hankins Paternal Grandfather Paternal Grandmother Najma Foster Sister 1 Wanda Cotton Alive Sister 2 Alive Sister 3 Kenyatta Hankins Social History Tobacco Use Types Packs/Day Years Used Date Smoking Tobacco: Never Smokeless Tobacco: Never Alcohol Use Standard Drinks/Week Comments Never 0 (1 standard drink = 0.6 oz pur e alcohol) AUDIT-C Answer Date Recorded Q1: How often do you have a drink containing alcohol? Never 01/17/2024 Q2: How many drinks containi ng alcohol do you have on a typical day when you are drinking? Patient does not drink Q3: How often do you have si x or more drinks on one occasion? Never 01/17/2024 PHQ-2 Answer Date Recorded PHQ-2 Total Score (If total score is 3 or more points, staff should administer the PHQ-9) 0 01/17/2024 Education Answer Date Recorded What is the highest level of school you have completed or the highest degree you have received? 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 file Not on file Obstetrics History Para Term AB IAB SAB Ectopic Multiple Livin g Live Births 0 Last Filed Vital Signs Vital Sign Reading Time Taken Comments Blood Pressure 130/66 04/19/2024 9:51 AM SQL ARCHITECT Pulse 68 04/19/2024 9:51 AM SQL ARCHITECT Temperature 36.2 C (97.2 F) 01/17/2024 10:40 AM CDT Respiratory Rate 16 04/19/2024 9:51 AM SQL ARCHITECT Oxygen Saturation 99% 04/19/2024 9:51 AM SQL ARCHITECT Inhaled Oxygen Concentration - - Weight 86.6 kg (191 lb) 04/19/2024 9:51 AM SQL ARCHITECT Height 171 cm (5' 7.32) 01/17/2024 10:40 AM CDT Body Mass Index 29.63 01/17/2024 10:40 AM CDT Plan of Treatment Health Maintenance Due Date Last Done Comments Albumin Creatinine Ratio, Urine 1950 Dilated Eye Exam 1950 Foot Exam 1950 Covid-19 Vaccine (2023-06 5 season) 2024 02/25/2022, 08/26/2021, 03/19/2021, Additional history exists Hemoglobin A1C 07/16/2024 01/17/2024, 03/0 08/2023, 05/04/2023, Additional history exists Depression Screening 01/16/2025 01/17/2024, 12/15/2023, 07/12/2023, Additional history exists Fall Risk Assessment 01/16/2025 01/17/2024, 12/15/2023, 07/12/2023, Additional history exists Lipid Panel 01/16/2025 01/17/2024, 03/0 08/2023, 10/14/2022, Additional history exists Well Visit 65+ 01/16/2025 01/17/2024, 033 , 07/31/2021 eGFR 01/16/2025 01/17/2024, 03/0 08/2023, 05/04/2023, Additional history exists Osteoporosis Screening-Bone Density Scan 07/27/2025 07/28/2023, 08/26/2020, 06/11/2015, Additional history exists DTaP/Tdap/Td Vaccine (3 - Td or Tdap) 05/27/2028 05/27/2018, 03/08/2006 Colon Cancer Screening-CT Colonography Discontinued 07/15/2020 Colon Cancer Screening-Colonoscopy Discontinued 07/15/2020 Colon Cancer Screening-DNA Stool Discontinued 07/16/19 Colon Cancer Screening-FIT Discontinued 07/15/2020 Colon Cancer Screening-FOBT Discontinued 07/15/2020 Colon Cancer Screening-Sigmoidoscopy Discontinued 07/15/2020 Colorectal Cancer Screening Discontinued Pneumococcal vaccine 65+ Completed 022, 05/17/2015, 05/21/2014 Hepatitis C Screening Completed 01/29/2022, 021 Zoster Vaccine Completed 02/09/2022, 07/31/2021 Breast Cancer Screening-Mammogram Discontinued 11/29/2023, 11/06/2022, 09/03/2021, Additional history exists Hepatitis B Screening Completed 01/17/2024 Influenza Vaccine Completed 01/17/2024, , 02/09/2022, Additional history exists Procedures Procedure Name Priority Date/Time Associated Diagnosis Comments PROTIME-INR Routine 09/27/2024 8:21 AM CDT PAF (paroxysmal atrial fibrillation) (HCC) PROTIME-INR Routine 09/08/2024 8:07 AM CDT PAF (paroxysmal atrial fibrillation) (HCC) PROTIME-INR Routine 08/24/2024 11:01 AM CDT PAF (paroxysmal atrial fibrillation) (HCC) PROTIME-INR Routine 07/31/2024 9:30 AM CDT PAF (paroxysmal atrial fibrillation) (HCC) PROTIME-INR Routine 07/17/2024 8:55 AM CDT PAF (paroxysmal atrial fibrillation) (HCC) PRO B-TYPE NATRIURETIC PEPTIDE Routine 07/17/2024 8:54 AM CDT Longstanding persistent atrial fibrillation (HCC) EGFR Routine 01/17/2024 11:43 AM CDT Annual physical exam Primary hypertension HEMOGLOBIN A1C Routine 01/17/2024 11:43 AM CDT Prediabetes LIPID PANEL Routine 01/17/2024 11:43 AM CDT Hyperlipidemia, unspecified hyperlipidemia type SCREENING MAMMOGRAM BILATERAL W GUSTAVO Schedule Routine, Read Routine (OP Routine) 11/29/2023 7:52 AM CDT Screening mammogram, encounter for DEXA AXIAL SKELETON BONE DENSITY 1 OR MORE SITES Schedule Routine, Read Routine (OP Routine) 07/28/2023 10:21 AM CDT Screening for osteoporosis Asymptomatic menopausal state HM HEPATITIS C SCREENING Routine 01/29/2022 COLONOSCOPY 07/15/2020 11:52 AM SQL ARCHITECT from Last 3 Months or Most Recently Relevant to Health Maintenance Results * (ABNORMAL) Protime-INR (09/27/2024 8:21 AM CDT) PT 23.5(H) 9.7 - 13.0 sec INR 2.14(H) 0.90 - 1.20 KEREN GAMEZ Comment: Interpretive data Oral anticoagulant therapeutic ranges: Venous thromboembolism prophylaxis or treatment: 2.0-3.0 CARDIOLOGY Standard range: 2.0-3.0 High-intensity range: 2.5-3.5 Refer to indication-specific guidelines for appropriate target ranges for prosthetic heart valve replacement. Current interpretive data was last revised on 2019. Blood 09/27/2024 8:21 AM CDT 09/27/2024 8:21 AM CDT Narrative KEREN GAMEZ - 09/27/2024 8:37 AM CDT Patient is just starting on warfarin and will have additional lab that need drawn. us Lalithkumar K. Alphonso MD LAB BLOOD ORDERABLES F inal Result Performing Organization Address City/[facility]/ZIP Co de Phone Number KEREN GAMEZ [phone] [facility] [id number] [place] [address] * (ABNORMAL) Protime-INR (09/08/2024 8:07 AM CDT) PT 22.4(H) 9.7 - 13.0 sec INR 2.04(H) 0.90 - 1.20 KEREN Comment: Interpretive data Oral anticoagulant therapeutic ranges: Venous thromboembolism prophylaxis or treatment: 2.0-3.0 CARDIOLOGY Standard range: 2.0-3.0 High-intensity range: 2.5-3.5 Refer to indication-specific guidelines for appropriate target ranges for prosthetic heart valve replacement. Current interpretive data was last revised on 2019. Blood 09/08/2024 8:07 AM CDT 09/08/2024 8:07 AM CDT Narrative KEREN - 09/08/2024 8:22 AM CDT Patient is just starting on warfarin and will have additional lab that need drawn. Roxanne Werner MD LAB BLOOD ORDERABLES F inal Result Performing Organization Address [facility] Co de Phone Number KEREN GAMEZ [phone] [facility] [id number] [place], [place] [id number] * (ABNORMAL) Protime-INR (08/24/2024 11:01 AM CDT) PT 29.7(H) 9.7 - 13.0 sec INR 2.69(H) 0.90 - 1.20 KEREN Comment: Interpretive data Oral anticoagulant therapeutic ranges: Venous thromboembolism prophylaxis or treatment: 2.0-3.0 CARDIOLOGY Standard range: 2.0-3.0 High-intensity range: 2.5-3.5 Refer to indication-specific guidelines for appropriate target ranges for prosthetic heart valve replacement. Current interpretive data was last revised on 2019. Blood 08/24/2024 11:0 1 AM CDT 08/24/2024 11:01 AM CDT Narrative KEREN - 08/24/2024 11:35 AM CDT Patient is just starting on warfarin and will have additional lab that need drawn. Roxanne Werner MD LAB BLOOD ORDERABLES F inal Result Performing Organization Address [facility] Co de Phone Number KEREN [phone] [id number] [place] [address] * (ABNORMAL) Protime-INR (07/31/2024 9:30 AM CDT) PT 21.6(H) 9.7 - 13.0 sec INR 1.97(H) 0.90 - 1.20 [facility] Comment: Interpretive data Oral anticoagulant therapeutic ranges: Venous thromboembolism prophylaxis or treatment: 2.0-3.0 CARDIOLOGY Standard range: 2.0-3.0 High-intensity range: 2.5-3.5 Refer to indication-specific guidelines for appropriate target ranges for prosthetic heart valve replacement. Current interpretive data was last revised on 2019. Blood 07/31/2024 9:30 AM CDT 07/31/2024 9:30 AM CDT Narrative KEREN - 07/31/2024 9:42 AM CDT Patient is just starting on warfarin and will have additional lab that need drawn. Roxanne Werner MD LAB BLOOD ORDERABLES F inal Result Performing Organization Address [facility] Co de Phone Number KEREN GAMEZ [phone] [id number] [place] [address] * (ABNORMAL) Protime-INR (07/17/2024 8:55 AM CDT) PT 23.8(H) 9.7 - 13.0 sec INR 2.17(H) 0.90 - 1.20 KEREN Comment: Interpretive data Oral anticoagulant therapeutic ranges: Venous thromboembolism prophylaxis or treatment: 2.0-3.0 CARDIOLOGY Standard range: 2.0-3.0 High-intensity range: 2.5-3.5 Refer to indication-specific guidelines for appropriate target ranges for prosthetic heart valve replacement. Current interpretive data was last revised on 2019. Blood 07/17/2024 8:55 AM CDT 07/17/2024 8:55 AM CDT Narrative KEREN GAMEZ - 07/17/2024 9:10 AM CDT Patient is just starting on warfarin and will have additional lab that need drawn. us Roxanne Werner MD LAB BLOOD ORDERABLES F inal Result KEREN [id number] [place] [address] * (ABNORMAL) Pro B-type natriuretic peptide (07/17/2024 8:54 AM CDT) NT-proBNP 1,343(H) <=450 pg/mL Comment: Interpretive Comments: A. Dyspnea in Acute Care Setting All Ages: < 300 pg/ml, acute heart failure unlikely. < 50 yrs: 300 - 450 pg/ml, further investigation warranted. > 450 pg/ml, acute heart failure likely. 50 - 74 yrs: 300 - 900 pg/ml, further investigation warranted. > 900 pg/ml, acute heart failure likely . > or = 75 yrs: 450 - 1800 pg/ml, further investigation warranted. > 1800 pg/ml, acute heart failure likely. B. Non-acute Setting < 75 yrs < 125 pg/ml, rules out heart failure. > or = 125 pg/ml, further investigation warranted. > or = 75 yrs < 450 pg/ml, rules out heart failure. > or = 450 pg/ml, further investigation warranted. - Knowledge of each individual patient's NT-proBNP range may be more useful than using similar cut-points for every patient. Please note that marked elevations in NT-proBNP levels may be observed in state other than Left Ventricular Congestive Failure, including: acute coronary syndromes, right heart strain/failure (including pulmonary embolism and cor pulmonale), critical illness, renal failure, as well as advanced age. - References: 1. Sun PERDOMO et.al. Eur Heart J. 2006:27:330-337. 2. Brett HICKS, Dimple ROBISON. J. AM Mariah Cardiol: Cardiovasc Imag. 2009;2: 216- 225. Interpretive Data Last Revised Date: 2017. Blood 07/17/2024 8:54 AM CDT 07/17/2024 8:54 AM CDT Roxanne Werner MD LAB BLOOD ORDERABLES F inal Result KEREN GAMZE [id number] [address] Department [place] [address] * (ABNORMAL) eGFR (01/17/2024 11:43 AM CDT) eGFR 59(L) >=60 mL/min/1. 73 m2 Comment: Interpretive Data Reference Interval Normal >/= 90 mL/min/1.73m2 Mildly decreased* 60 - 89 mL/min/1.73m2 Mildly to moderately decreased 45 - 59 mL/min/1.73m2 Moderately to severely decreased 30 - 44 mL/min/1.73m2 Severely decreased 15 - 29 mL/min/1.73m2 Kidney Failure < 15 mL/min/1.73m2 *Relative to young adult level Estimated glomerular filtration rate is determined by the 2020 CKD-EPI equation recommended by the National Kidney Foundation (A Unifying Approach to GFR Estimation: Recommendations of the NKF-ASK Task Force on Reassessing the Inclusion of Race in Diagnosing Kidney Disease, JASN 202). The CKD-EPI equation should not be used for patients with unstable renal function and has not been validated in children and those over 70. Current interpretive data was last reviewed 2021. Blood 01/17/2024 11:4 3 AM CDT 01/17/2024 11:53 AM CDT Karolyn Evans NP LAB BLOOD ORDERABLES Final R esult KEREN [facility] ([facility]) [address] [facility] [place] [address] * (ABNORMAL) Hemoglobin A1c (01/17/2024 11:43 AM CDT) Hgb A1C 6.6(H) 4.0 - 5.6 % Estimated Average Glucose 143 mg/dL KEREN BROWNLEE (BILL) Comment: The ADA recommends reporting an estimated Average Glucose (eAG) with all Hemoglobin A1c results using the equation derived from a study of 507 normal and diabetic adults. Minority populations were underrepresented and children were not included. (Diabetes Care 31:8308-7041, 2008). The eAG is not equivalent to a fasting glucose. Blood 01/17/2024 11:4 3 AM CDT 01/17/2024 11:53 AM CDT Karolyn Evans NP LAB BLOOD ORDERABLES Final R esult KEREN BROWNLEE (BILL) 1 [facility] Department [place] [address] * Lipid panel (01/17/2024 11:43 AM CDT) Cholesterol 138 30 - 199 mg/dL Comment: Interpretive Data Ages < or = 19 years Acceptable: <170 mg/dL Borderline high: 170-199 mg/dL High: >or= 200 mg/dL Ages > or = 20 years Desirable: <200 mg/dL Borderline high: 200-239 mg/dL High: >or= 240 mg/dL Literature References: 1. Expert Panel on Integrated Guidelines for Cardiovascular Health and Risk Reduction in Children and Adolescents. Pediatrics 2011;128:S213 2. NCEP Expert Panel. Circulation 2004;110:227 Current Interpretive Data was last revised on 2017. Triglycerides 64 <=149 mg/dL KEREN BROWNLEE (BILL) Comment: Interpretive Data Ages < or = 9 years Acceptable: <75 mg/dL Borderline high: 75-99 mg/dL High: >or= 100 mg/dL Ages 10 to 20 years Acceptable: <90 mg/dL Borderline high: 90-129 mg/dL High: >or= 130 mg/dL Ages > or = 20 years Desirable: <150 mg/dL Borderline high: 150-199 mg/dL High: 200-499 mg/dL Very high: >or= 499 mg/dL Literature References: 1. Expert Panel on Integrated Guidelines for Cardiovascular Health and Risk Reduction in Children and Adolescents. Pediatrics 2011;128:S213 2. NCEP Expert Panel. Circulation 2004;110:227 Current Interpretive Data was last revised on 2017. HDL 67 >=40 mg/dL KEREN Holder (BILL) Comment: Interpretive Data Ages < or = 19 years Acceptable: >45 mg/dL Borderline low: 40-45 mg/dL Low: <40 mg/dL Ages > or = 20 years Desirable: >or= 60 mg/dL Low: <40 mg/dL Literature References: 1. Expert Panel on Integrated Guidelines for Cardiovascular Health and Risk Reduction in Children and Adolescents. Pediatrics 2011;128:S213 2. NCEP Expert Panel. Circulation 2004;110:227 Current Interpretive Data was last revised on 2017. LDL, calculated 58 <=129 mg/dL KEREN BROWNLEE (BILL) Comment: Interpretive Data Ages < or = 19 years Acceptable: <110 mg/dL Borderline high: 110-129 mg/dL High: >or= 130 mg/dL Ages > or = 20 years Optimal: <100 mg/dL Near optimal: 100-129 mg/dL Borderline high: 130-159 mg/dL High: >160 mg/dL Calculated using the Martin LDL-C estimating equation. This equation was implemented on 2023. Prior to this date LDL-C was estimated using the Friedewald equation. Literature References: 1. Expert Panel on Integrated Guidelines for Cardiovascular Health and Risk Reduction in Children and Adolescents. Pediatrics 2011;128:S213 2. NCEP Expert Panel. Circulation 2004;110:227 3. Martin Tong al. CORONA Cardiol. 2019September 07;5(5):540-548. doi: 10.1001/[email or web address] Current Interpretive Data was last revised on 2023. Non-HDL Cholesterol 71 mg/dL KEREN BROWNLEE (BILL) Comment: Interpretive Data Ages < or = 19 years Acceptable: <120 mg/dL Borderline high: 120-144 mg/dL High: >145 mg/dL Ages > or = 20 years When triglycerides are >200 mg/dL, Non-HDL cholesterol is a secondary target of therapy with treatment goals that are 30 mg/dL greater than the LDL cholesterol target. Literature References: 1. Expert Panel on Integrated Guidelines for Cardiovascular Health and Risk Reduction in Children and Adolescents. Pediatrics 2011;128:S213 2. NCEP Expert Panel. Circulation 2004;110:227 Current Interpretive Data was last revised on 2017. Chol/HDL ratio 2 SINDHU BROWNLEE (PRE[facility]ON [facility]LLOW) Blood 01/17/2024 11:4 3 AM CDT 01/17/2024 11:53 AM CDT Karolyn Evans NP LAB BLOOD ORDERABLES Final R esult KEREN BROWNLEE ([facility]) 1 [facility] [place] [address] * (ABNORMAL) Screening Mammogram Bilateral W Gustavo (11/29/2023 7:52 AM CDT) Anatomical Region Laterality Modality Breast Bilateral Mammography 11/29/2023 10:0 8 AM CDT Impressions 11/29/2023 10:08 AM CDT 1. Possible area of developing architectural distortion in the upper outer left breast posterior depth on MLO view. Further evaluation with left unilateral diagnostic mammogram and possible sonogram is recommended. 2. No new suspicious findings identified in the right breast. BI-RADS: 0 - Additional imaging evaluation is necessary. The patient has been or will be contacted. Electronically signed by: BERNARD VELASQUEZ Narrative 11/29/2023 10:08 AM CDT EXAMINATION: SCREENING MAMMOGRAM BILATERAL W GUSTAVO ORDERING HEALTHCARE PROVIDER: SELF SCREENING MAMMOGRAM HISTORY: Routine screening mammography. COMPARISON: 11/06/2022, 09/03/2021, 08/26/2020 TECHNIQUE: CC and MLO views of both breasts were obtained with digital technique using digital breast tomosynthesis with C view. Computer aided detection was utilized. FINDINGS: DENSITY: The breasts have scattered areas of fibroglandular density. BREASTS: Possible area of developing architectural distortion in the upper outer left breast posterior depth on MLO view. No other new suspicious findings are seen in either breast. us Self Screening Mammogram IMG MAMMO PROCEDURES Fi nal Result * Dexa Axial Skeleton Bone Density 1 or 2 Site (07/28/2023 10:21 AM CDT) Anatomical Region Laterality Modality Body N/A Other 07/28/2023 7:23 PM CDT Narrative 07/28/2023 7:24 PM CDT EXAM DESCRIPTION: DEXA AXIAL SKELETON BONE DENSITY 1 OR MORE SITES REASON FOR STUDY: 73 y/o year old F with given history of: Preventative screening Postmenopausal [employer]ant Systems/Model: [employer] (S/N [id number]) CLINICAL INFORMATION: Current height: 66.5 inches Maximum height: 67.5 inches Weight: 195 pounds Risk factors: Postmenopausal COMPARISON: 08/26/2020 Dissimilar scan types or analysis methods precludes assessment for calculating a significant change. FINDINGS: AP LUMBAR SPINE L1-L4: Total BMD is 1.248 g/cm2 T-score is 1.8 LEFT HIP: Total BMD is 1.000 g/cm2 T-score is 0.5 Femoral neck BMD is 0.902 g/cm2 T-score is 0.5 FRAX: FRAX not reported due to T-scores of hip, femoral neck and/or spine being at or above -1.0 (Normal). IMPRESSION: Normal bone mass. REFERENCE: Bone mineral density: T-Score: Normal (T-score above or = -1.0) Low bone mass (T-score between -1.0 and -2.5) replaces the previously used term osteopenia Osteoporosis (T-score = or below -2.5) Z-Score: Within the expected range for age (Z-score above -2.0) Below the expected range for age (Z-score is -2.0 or below) Please see below follow up recommendations. Medical evaluation for secondary causes of low bone mineral density may be appropriate. FRAX is a World Health Organization validated fracture risk assessment tool that calculates a person's 10 year probability of a major osteoporosis related fracture and hip fracture. According to the National Osteoporosis Foundation guidelines, postmenopausal women and men age 50 or older with low bone mass and a 10 year probability of a major osteoporosis related fracture = or greater than 20% or a 10 year probability of a hip fracture = or greater than 3% should be considered for pharmacological treatment for the prevention of osteoporosis. For further information, including treatment recommendations, please refer to the 2019 ISCD Official Positions (http://www.iscd.org) and the NOF's Clinician's Guide to Prevention and Treatment of Osteoporosis (http://www.nof.org/professionals/clinical-guidelines) THIS IS AN ELECTRONICALLY VERIFIED FINAL REPORT 07/28/2023 7:24 PM - Electronically signed by Rl Leon M.D. MF: [id number] Report ID: [id number] Reading Location: [id number] Procedure Note Rl Leon MD - 07/28/2023 EXAM DESCRIPTION: DEXA AXIAL SKELETON BONE DENSITY 1 OR MORE SITES REASON FOR STUDY: 73 y/o year old F with given history of:Preventative screening Postmenopausal [employer]ant Systems/Model: [employer] (S/N [id number]) CLINICAL INFORMATION: Current height: 66.5 inches Maximum height: 67.5 inches Weight: 195 pounds Risk factors: Postmenopausal COMPARISON: 08/26/2020 Dissimilar scan types or analysis methods precludes assessment for calculating a significant change. FINDINGS: AP LUMBAR SPINE L1-L4: Total BMD is 1.248 g/cm2 T-score is 1.8 LEFT HIP: Total BMD is 1.000 g/cm2 T-score is 0.5 Femoral neck BMD is 0.902 g/cm2 T-score is 0.5 FRAX: FRAX not reported due to T-scores of hip, femoral neck and/or spine beingat or above -1.0 (Normal). IMPRESSION: Normal bone mass. REFERENCE: Bone mineral density: T-Score: Normal (T-score above or = -1.0) Low bone mass (T-score between -1.0 and -2.5) replaces thepreviously used term osteopenia Osteoporosis (T-score = or below -2.5) Z-Score: Within the expected range for age (Z-score above -2.0) Below the expected range for age (Z-score is -2.0 or below) Please see below follow up recommendations. Medical evaluation forsecondary causes of low bone mineral density may be appropriate. FRAX is a World Health Organization validated fracture risk assessmenttool that calculates a person's 10 year probability of a major osteoporosisrelated fracture and hip fracture. According to the National OsteoporosisFoundation guidelines, postmenopausal women and men age 50 or older with low bonemass and a 10 year probability of a major osteoporosis related fracture = or greater than 20% or a 10 year probability of a hip fracture = or greaterthan 3% should be considered for pharmacological treatment for the preventionof osteoporosis. For further information, including treatment recommendations, please referto the 2019 ISCD Official Positions (http://www.iscd.org) and the NOF's Clinician's Guide to Prevention and Treatment of Osteoporosis (http://www.nof.org/professionals/clinical-guidelines) THIS IS AN ELECTRONICALLY VERIFIED FINAL REPORT 07/28/2023 7:24 PM - Electronically signed by Rl Leon M.D. MF: SONIDO Report ID: [id number] Reading Location: [place] [address] Karolyn Evans INFORMATICIST IMG DXA PROCEDURES Final Res ult * HM HEPATITIS C SCREENING (01/29/2022) SCRIBED HCV ab non Blood Historical Provider HEALTH MAINTENANCE Final Result * COLONOSCOPY (07/15/2020 11:52 AM SQL ARCHITECT) Anatomical Region Laterality Modality Other Narrative Procedure Note Victor Manuel Noguera MD - 07/15/2020 11:52 AM CST [facility] Patient Name: Arabella Hankins Procedure Date: 07/15/2020 11:52 AM Date of : 1950 Admit Type: Outpatient Age: 70 Gender: Female Note Status: Finalized Attending MD: Victor Manuel Noguera M.D. Procedure Date: 07/15/2020 Procedure: Colonoscopy Indications: High risk colon cancer surveillance: Personalhistory of colonic polyps, Last colonoscopy: 2015 Providers: Victor Manuel Noguera M.D., ADRIENNE Lemus (Anesthesia Staff), Bridgett Cullen RN, MAURA Corbett Referring MD: Sudhir Espinoza M.D. Medicines: Monitored Anesthesia Care Complications: No immediate complications. Estimated Blood Loss: Estimated blood loss was minimal. Procedure: Pre-Anesthesia Assessment: - Prior to the procedure, a History and Physicalwas performed, and patient medications and allergieswere reviewed. The patient is competent. The risks and benefits of the procedure and the sedation optionsand risks were discussed with the patient. Allquestions were answered and informed consent was obtained. Patient identification and proposed procedure were verified by the physician, the nurse and the java portal developer in the procedure room. Mental Status Examination: alert and oriented. AirwayExamination: normal oropharyngeal airway and neck mobility. Respiratory Examination: clear to auscultation. CV Examination: normal. Prophylactic Antibiotics: The patient does not require prophylactic antibiotics. Prior Anticoagulants: The patient has taken Eliquis (apixaban), last dose was 2 days prior toprocedure. ASA Grade Assessment: III - A patient with severe systemic disease. After reviewing the risks and benefits, the patient was deemed in satisfactory condition to undergo the procedure. The anesthesia plan was to use monitored anesthesia care (MAC). Immediately prior to administration of medications, the patient was re-assessed for adequacy to receive sedatives. The heart rate, respiratory rate, oxygen saturations, blood pressure, adequacy of pulmonary ventilation, and response to care were monitored throughout the procedure. The physical status ofthe patient was re-assessed after the procedure. - The risks and benefits of the procedure and the sedation options and risks were discussed with the patient. All questions were answered and informed consent was obtained. After I obtained informed consent, the scope was passed under direct vision. Throughout theprocedure, the patient's blood pressure, pulse, and oxygen saturations were monitored continuously. The scopewas passed under direct vision. The Colonoscope was introduced through the anus and advanced to the the cecum, identified by appendiceal orifice andileocecal valve. The colonoscopy was performed without difficulty. The patient tolerated the procedurewell. The quality of the bowel preparation was adequate.The bowel preparation used was SUPREP via split dose instruction. Findings: Three sessile polyps were found in the cecum. The polyps were 1 to 3mm in size. These polyps were removed with a cold biopsy forceps.Resection and retrieval were complete. Estimated blood loss was minimal. A 8 mm polyp was found in the cecum. The polyp was sessile. The polyp was removed with a hot snare. Resection and retrieval were complete. Estimated blood loss was minimal. Two sessile polyps were found in the ascending colon. The polyps were2 to 7 mm in size. These polyps were removed with a hot snare.Resection and retrieval were complete. Estimated blood loss was minimal. A 8 mm polyp was found in the transverse colon. The polyp wassessile. The polyp was removed with a cold snare. Resection and retrieval were complete. Estimated blood loss was minimal. Multiple small-mouthed diverticula were found in the sigmoid colonand descending colon. The exam was otherwise without abnormality on direct and retroflexion views. Impression: - Three 1 to 3 mm polyps in the cecum, removed witha cold biopsy forceps. Resected and retrieved. - One 8 mm polyp in the cecum, removed with a hot snare. Resected and retrieved. - Two 2 to 7 mm polyps in the ascending colon,removed with a hot snare. Resected and retrieved. - One 8 mm polyp in the transverse colon, removedwith a cold snare. Resected and retrieved. - Diverticulosis in the sigmoid colon and in the descending colon. - The examination was otherwise normal on directand retroflexion views. Recommendation: - Await pathology results. - Repeat colonoscopy in 5 years for surveillance. Procedure Code(s): --- Professional --- 17568, Colonoscopy, flexible; with removal of tumor(s), polyp(s), or other lesion(s) by snare technique 46740, 59, Colonoscopy, flexible; with biopsy,single or multiple Diagnosis Code(s): --- Professional --- K63.5, Polyp of colon Z86.010, Personal history of colonic polyps K57.30, Diverticulosis of large intestine without perforation or abscess without bleeding CPT copyright 2019 [employer]. All rights reserved. The codes documented in this report are preliminary and upon network operations project manager reviewmay be revised to meet current compliance requirements. Electronically signed by Victor Manuel Noguera M.D. Victor Manuel Noguera M.D. 07/15/2020 12:24:51 PM Number of Addenda: 0 Note Initiated On: 07/15/2020 11:52 AM Victor Manuel Noguera MD ENDOSCOPY PROCEDURES Fi nal Result from Last 3 Months or Most Recently Relevant to Health Maintenance Insurance [facility] MEDICARE ADVANTAGE UHC MEDICARE ADVANTAGE UHC MEDICARE ADVANTAGE Member Subscriber Plan / Payer (Ef fective 2022-Present) Name:Arabella Hankins Relation to Subscriber:Self Name:Arabella Hankins Payer ID:[id number] (NAIC) Type:[facility] MEDICARE Address: [address] [id number] Advance Directives For more information, please contact: [phone] * Full Code (Latest Code Status on File) Date Activated Date Inactivated Comments 06/06/2020 6:21 PM 06/10/2020 10:52 PM * Full Code Date Activated Date Inactivated Comments 06/06/2020 6:21 PM 06/06/2020 6:21 PM Care Teams Certified Juvenile Probation Officer Relationship Specialty [place] [address] [facility] [address] [place] [address] PCP - General Family Medicine 09/08/24 AlphonsoRoxanne santamaria MD [address] [place] [address] Consulting Physician Cardiology 07/31/21 Aat Bronson DPM [address] [place] [address] Consulting Physician Foot and Ankle Surg 07/31/21
--- OUTSIDE RECORDS SUMMARY | 2024-10-09 09:23 | XMS_ITS | Patient Health Record ---
Author Organization [facility] Address [address] [facility] [address] [place] [address] Care Team Providers Care Sider Name Role Phone Michael Smith MD Primary Care Provider Unavaila ble Reason For Referral No Information Plan Of Treatment No Information Insurance Providers Payer Name Payer Address Payer Phone Subscriber Number Group Number Insured Name Patient Relationship to Insured Coverage Start Date Coverage End Date Medicare E2 [address] [place] [address] [id number] Arabella Hankins Self - patient is the insured [employer] [facility] Supplmnt Plan [address] [address] [place] [address] [phone] [id number] Arabella Hankins Self - patient is the insured
--- OUTSIDE RECORDS SUMMARY | 2024-10-09 09:23 | XMS_ITS | Clinical Summary ---
Author Organization [facility] Address [address] [place] [address] Care Team Providers Care Barbering Instructor Name Role Phone Michael Smith MD Primary Care Provider [phone] Source Comments [facility],non-owned Affiliates and Associated Physician Practices is amultiple site organization consisting of ambulatory clinics and hospital sitesin [place], [place], [place] and [place]. This disclosure is being madepursuant to the Care Everywhere program and may not contain all information available regarding this patient. Last updated 18.[facility] Allergies Active Allergy Reactions Criticality Noted Date Comments Sulfa Drugs 10/13/2012 Medications * Be aware that medications may not be up to date on this document. Alwaysverify current medications with the patient. amLODIPine (NORVASC) 5 MG tablet Take 10 mg by mouth once daily Active levothyroxine (SYNTHROID) 125 MCG tablet Take 125 mcg by mouth daily before breakfast. Active estradiol (ESTRACE) 0.5 MG tablet Take 0.5 mg by mouth once daily. Active indapamide (LOZOL) 1.25 MG tablet Take 1.25 mg by mouth once daily Active Cyanocobalamin (B-12) 2500 MCG Take 2,500 mcg by mouth Three times a week Active multivitamin daily tablet Take 1 tablet by mouth daily with food Active potassium chloride ER (KLOR-CON M) 20 MEQ tablet Take 1 tablet by mouth once daily 30 tablet 06/07/2018 Active Active Problems Problem Noted Date Diagnosed Date Acute cholecystitis 06/05/2018 Social History Tobacco Use Types Packs/Day Years Used Date Smoking Tobacco: Never Smokeless Tobacco: Never Alcohol Use Standard Drinks/Week Comments No 0 (1 standard drink = 0.6 oz pur e alcohol) Comments Unknown Sex and Gender Information Value Date Recorded Sex Assigned at Not on file Legal Sex Female 5:25 PM CDT Gender Identity Not on file Sexual Orientation Not on file Last Filed Vital Signs Vital Sign Reading Time Taken Comments Blood Pressure 124/60 06/07/2018 7:59 AM ORACLE DATABASE ADMINISTRATOR Pulse 59 06/07/2018 7:59 AM ORACLE DATABASE ADMINISTRATOR Temperature 36.9 C (98.5 F) 06/07/2018 7:59 AM ORACLE DATABASE ADMINISTRATOR Respiratory Rate 16 06/07/2018 7:59 AM ORACLE DATABASE ADMINISTRATOR Oxygen Saturation 92% 06/07/2018 7:59 AM ORACLE DATABASE ADMINISTRATOR Inhaled Oxygen Concentration - - Weight 87.1 kg (192 lb) 06/14/2018 8:56 AM ORACLE DATABASE ADMINISTRATOR Height 172.7 cm (5' 8) 06/14/2018 8:56 AM ORACLE DATABASE ADMINISTRATOR Body Mass Index 29.19 06/14/2018 8:56 AM ORACLE DATABASE ADMINISTRATOR Plan of Treatment Health Maintenance Due Date Last Done Comments BONE DENSITY TESTING 1950 HEPATITIS C SCREENING 01/29/1966 DTAP/TDAP/TD VACCINES (1 - Tdap) 02/02/1967 PNEUMOCOCCAL VACCINE 50+ (1 of 1 - PCV) 02/02/1998 ZOSTER VACCINE (1 of 2) 02/02/1998 SCREENING FOR DIABETES 06/07/2021 9, 06/06/2018, 06/05/2018 Respiratory Syncytial Virus (RSV) Vaccine Pt: or over 60 yrs (1 - 1-dose 75+ series) 02/02/2023 COVID-19 VACCINE ( - 2023-2 5 season) 2024 DEPRESSION SCREENING 05/10/2024 INFLUENZA VACCINE (Season Ended) 2025 HEPATITIS B VACCINE Aged Out No longe r eligible based on patient's age to complete this topic HIB VACCINE Aged Out No longer eligi ble based on patient's age to complete this topic HPV VACCINE Aged Out No longer eligi ble based on patient's age to complete this topic MENINGOCOCCAL (Group B) VACCINE SHARED DECISION-MAKING Aged Out No longer eligible based on patient's age to complete this topic MENINGOCOCCAL GROUPS A/C/Y/W VACCINE Aged Out No longer eligible b ased on patient's age to complete this topic Procedures Procedure Name Priority Date/Time Associated Diagnosis Comments BASIC METABOLIC PANEL (CALCIUM TOTAL) AM Draw 06/07/2018 1:19 AM ORACLE DATABASE ADMINISTRATOR from Last 3 Months or Most Recently Relevant to Health Maintenance Results * (ABNORMAL) BASIC METABOLIC PANEL (CALCIUM TOTAL) (06/07/2018 1:19 AM ORACLE DATABASE ADMINISTRATOR) Glucose 137(H) 74 - 106 mg/dL 06/07/2018 1:44 AM [facility] Sodium 139 136 - 145 mmol/L 06/07/2018 1:44 AM [facility] Potassium 3.0(L) 3.5 - 5.1 mmol/L 06/07/2018 1:44 AM [facility] Chloride 108(H) 98 - 107 mmol/L 06/07/2018 1:44 AM [facility] CO2 25 22 - 31 mmol/L 06/07/2018 1:44 AM [facility] Calcium 8.5 8.5 - 10.1 mg/dL 06/07/2018 1:44 AM [facility] Anion Gap 6(L) 8 - 16 mmol/L 06/07/2018 1:44 AM [facility] BUN 9 7 - 21 mg/dL 06/07/2018 1:44 AM [facility] Creatinine 0.85 0.50 - 1.30 mg/dL 06/07/2018 1:44 AM [facility] eGFR by MDRD >60 mL/min/1.7 3m2 06/07/2018 1:44 AM [facility] eGFR by MDRD >60 mL/min/1.7 3m2 06/07/2018 1:44 AM [facility] Blood BLOOD SPECIMEN / Unknown Venipuncture / Unknown 06/07/2018 1:19 AM ORACLE DATABASE ADMINISTRATOR 06/07/2018 1:26 AM ORACLE DATABASE ADMINISTRATOR Fredi Hudson MD LAB - CHEMISTRY ORDERAB LES Final Result [facility] [address] [place] [address] from Last 3 Months or Most Recently Relevant to Health Maintenance Insurance MEDICARE [employer] Advance Directives Documents on File Type Date Recorded Patient Pharmaceutical Assistant Expl anation Adv Directive/Living Will/POA 06/08/2018 12:54 PM * Full Code (Latest Code Status on File) Date Activated Date Inactivated Comments 06/06/2018 3:29 PM 06/07/2018 3:41 PM * Full Code Date Activated Date Inactivated Comments 06/05/2018 9:50 PM 06/06/2018 3:29 PM Care Teams Barbering Instructor Relationship Specialty Start Date End Date Michael Smith MD PCP - General Internal Medicine 10/13/12
--- OUTSIDE RECORDS SUMMARY | 2024-10-09 09:23 | XMS_ITS | Referral Summary ---
Author Organization [facility] Address [address] [place] [phone] Care Team Providers Care Planning Management It Specialist Name Role Phone Roxanne Werner MD Unavailable [phone] Ata Bronson DPM Unavailable Jeannie Graham MD Primary Care Provider Encounters Date Type Department Care Team Description 10/03/2024 Anticoagulation Visit [employer] [address] [place] [phone] Laura Machado MA Paroxysmal atrial fibrillation (HCC) (Primary Dx) 09/27/2024 Results Follow-Up [employer] [address] [place] [phone] Laura Machado MA Protime-INR 09/27/2024 8:15 AM CDT Lab [address] [address] PAF (paroxysmal atrial fibrillation) (HCC) 09/11/2024 Results Follow-Up [employer] [address] [place] [phone] Roxanne Werner MD Protime-INR 09/11/2024 Anticoagulation Visit [employer] [address] [place] [phone] Laura Machado MA Paroxysmal atrial fibrillation (HCC) (Primary Dx) 09/08/2024 8:00 AM CDT Lab [address] [address] PAF (paroxysmal atrial fibrillation) (HCC) 08/30/2024 Results Follow-Up [employer] [address] [place] [phone] Roxanne Werner MD Protime-INR 08/24/2024 10:30 AM CDT Lab [address] [address] PAF (paroxysmal atrial fibrillation) (HCC) 08/08/2024 Anticoagulation Visit [employer] [address] [place] [phone] Laura Machado MA Paroxysmal atrial fibrillation (HCC) (Primary Dx) 08/08/2024 Results Follow-Up [employer] [address] [place] [phone] Roxanne Werner MD Protime-INR 07/31/2024 8:45 AM CDT Lab [address] [address] PAF (paroxysmal atrial fibrillation) (HCC) 07/20/2024 Results Follow-Up [facility] at [address] [place] [phone] Roxanne Werner MD Pro B-type natriuretic peptide 07/18/2024 Telephone [facility] at [address] [place] [phone] Karolyn Evans NP Appointment 07/17/2024 8:10 AM CDT Lab [address] [address] PAF (paroxysmal atrial fibrillation) (HCC); Longstanding persistent atrial fibrillation (HCC) from Last 3 Months Allergies Active Allergy Reactions Criticality Noted Date [...] Assessment & Plan (12/15/2023 1:33 PM CDT): -new -Wells criteria for DVT: 0 -left ankle x-ray [...] & Plan (12/15/2023 1:34 PM CDT): -new -Wells criteria for DVT: 0 -left ankle x-ray [...] 07/12/2023 Assessment & Plan (07/14/2023 2:07 PM STAMP CLERK): -chronic, stable -Discussed/ordered labs -continue on Compazine 10 mg every 6 hours as needed Vitamin B12 deficiency 07/12/2023 Assessment & Plan (01/17/2024 8:01 AM CDT): -chronic, stable -Discussed/ordered labs -continue on OTC vitamin B12 supplement daily Assessment & Plan (07/14/2023 2:08 PM STAMP CLERK): -chronic, unknown, no data to review at this time to make an evaluation -Discussed/ordered labs -continue on OTC vitamin B12 supplement daily Vitamin D deficiency 07/12/2023 Assessment & Plan (01/17/2024 8:00 AM CDT): -chronic, stable -Discussed/ordered labs -continue on vitamin D3 supplement 5000 units daily Assessment & Plan (07/14/2023 2:08 PM STAMP CLERK): -chronic, unknown, no data to review at this time to make an evaluation -Discussed/ordered labs -continue on vitamin D3 supplement 5000 units daily Chronic cough 01/27/2023 Assessment & Plan (01/19/2024 12:53 PM CDT): -chronic, stable -Discussed/ordered labs -patient reports she stopped taking Flonase -continue follow up with the ENT as needed Assessment & Plan (07/14/2023 2:04 PM STAMP CLERK): -chronic, stable -Discussed/ordered labs -continue on Flonase [...] 01/27/2023 Assessment & Plan (07/14/2023 2:05 PM STAMP CLERK): -chronic, stable -Discussed/ordered labs -continue on Flonase 2 sprays per nostril daily and meclizine 12.5 mg 3 times daily as needed -continue seeing ENT Assessment & Plan (03/19/2023 9:11 AM STAMP CLERK): Continue the Nasal saline and Flonase Call [...] daily Assessment & Plan (07/14/2023 2:03 PM STAMP CLERK): -chronic, stable -Discussed/ordered labs -continue seeing Cardiology -continue seeing Nephrology -continue on Eliquis 5 mg every 12 hours, furosemide 20 mg daily, metoprolol 50 mg twice daily, nifedipine XL 60 mg daily, potassium ER 20 mEq twice daily, Rosuvastatin 5 mg daily Assessment & Plan (05/04/2023 3:52 PM STAMP CLERK): Stable. Blood pressure is well controlled today. Last GFR was 44. Recheck BMP today. Will refer back to Nephrology Assessment & Plan (10/21/2022 8:56 AM CDT): Blood pressure well controlled. gfr 40. Will continue to monitor. Recheck bmp in 3 months. Diastolic dysfunction 10/21/2022 Overview (10/21/2022): Monitor for SOB, fatigue, weight gain, etc. Assessment & Plan (07/14/2023 2:02 PM STAMP CLERK): -chronic, stable -Discussed/ordered labs -continue seeing Cardiology -continue on Eliquis 5 mg every 12 hours, furosemide 20 mg daily, metoprolol 50 mg twice daily, nifedipine XL 60 mg daily, potassium ER 20 mEq twice daily, Rosuvastatin 5 mg daily Assessment & Plan (05/04/2023 3:53 PM STAMP CLERK): History of diastolic dysfunction. Patient follows with [...] daily Assessment & Plan (07/14/2023 2:03 PM STAMP CLERK): -chronic, stable -Discussed/ordered labs -continue seeing Cardiology [...] 06/18/2022 Assessment & Plan (07/14/2023 2:06 PM STAMP CLERK): -chronic, stable -Discussed/ordered labs -continue seeing Cardiology -continue on Eliquis 5 mg every 12 hours, furosemide 20 mg daily, metoprolol 50 mg twice daily, nifedipine XL 60 mg daily, potassium ER 20 mEq twice daily, Rosuvastatin 5 mg daily Assessment & Plan (06/18/2022 11:11 AM STAMP CLERK): HPI: Condition is not at/near goal swelling [...] 06/18/2022 Assessment & Plan (06/18/2022 11:14 AM STAMP CLERK): HPI: Condition is not at/near goal A&P: [...] 04/22/2022 Assessment & Plan (07/14/2023 2:05 PM STAMP CLERK): -chronic, stable -Discussed/ordered labs -continue on cyclobenzaprine 3 times daily as needed and OTC muscle rub Assessment & Plan (06/18/2022 11:12 AM STAMP CLERK): HPI: Condition is not at/near goal A&P: Discussed/ordered labs, encouraged healthy, low carbohydrate lifestyle and at least 150min/week of exercise. Pt has not been using Voltaren gel. Pt denies stretching or doing other home remedies to help her back We will do xray lumbar spine today Physical therapy Muscle rubs such as biofreeze/icy hot Massage may help Assessment & Plan (04/22/2022 8:21 AM STAMP CLERK): Does not wish to seek further treatment, [...] in your mouth on an boom like [employer] Hand Measurements: A fist or cupped hand [...] in your mouth on an boom like [employer] Hand Measurements: A fist or cupped hand [...] cup. Assessment & Plan (07/14/2023 2:05 PM STAMP CLERK): -chronic, stable goal BMI <30 Healthy, high-protein, lower carbohydrate, lower fat lifestyle and exercise for 150min/week recommended Recommend tracking everything you put in your mouth on an boom like [employer] Hand Measurements: A fist or cupped hand [...] cup. Assessment & Plan (06/18/2022 11:13 AM STAMP CLERK): HPI: Condition is stable goal BMI <30 A&P: Healthy, high-protein, lower carbohydrate, lower fat lifestyle and exercise for 150min/week recommended Recommend tracking everything you put in your mouth on an boom like [employer] Lower carb substitutions: Aldi carries a zero [...] in much longer they will become mushy [place] and/or coconut flour instead of regular flour [...] pork rinds For yogurt, try Two Good danish yogurt Use Gregorio for recipe ideas. Type [...] cup. Assessment & Plan (04/22/2022 8:20 AM STAMP CLERK): BMI Follow-up includes: exercise counseling. Assessment & Plan (10/16/2021 11:09 AM CDT): HPI: Condition is improving, but not at goal goal BMI <30 A&P: Healthy, high-protein, lower carbohydrate, lower fat lifestyle and exercise for 150min/week recommended Recommend tracking everything you put in your mouth on an boom like [employer] Lower carb substitutions: Aldi carries a zero [...] in much longer they will become mushy [place] and/or coconut flour instead of regular flour [...] pork rinds For yogurt, try Two Good danish yogurt Use Gregorio for recipe ideas. Type [...] cup. Assessment & Plan (04/08/2021 9:43 AM STAMP CLERK): HPI: Condition is not at/near goal goal BMI <30 A&P: Healthy, high-protein, lower carbohydrate, lower fat lifestyle and exercise for 150min/week recommended Substitutions: Recommend tracking everything you put in your mouth on an boom like [employer] or [employer] Aldi carries a zero net carb bread [...] in much longer they will become mushy [place] and/or coconut flour instead of regular flour [...] pork rinds For yogurt, try Two Good danish yogurt Use Pinterest for recipe ideas. Type in low carb... Paroxysmal atrial fibrillation 07/23/2020 Assessment & Plan (01/17/2024 8:00 AM CDT): -chronic, stable -Discussed/ordered labs -continue seeing Cardiology -continue on Eliquis 5 mg every 12 hours, furosemide 20 mg daily, metoprolol 50 mg twice daily, nifedipine XL 60 mg daily, potassium ER 20 mEq twice daily, Rosuvastatin 5 mg daily Assessment & Plan (07/14/2023 2:03 PM STAMP CLERK): -chronic, stable -Discussed/ordered labs -continue seeing Cardiology -continue on Eliquis 5 mg every 12 hours, furosemide 20 mg daily, metoprolol 50 mg twice daily, nifedipine XL 60 mg daily, potassium ER 20 mEq twice daily, Rosuvastatin 5 mg daily Assessment & Plan (08/06/2022 8:58 AM CDT): Stable. Continue eliquis, metoprolol, Assessment & Plan (04/22/2022 8:01 AM STAMP CLERK): Stable. Managed by cardiology. Remains on eliquis [...] Werner Assessment & Plan (04/08/2021 8:57 AM STAMP CLERK): HPI: Condition is stable A&P: Discussed/ordered labs, [...] daily Assessment & Plan (07/14/2023 2:03 PM STAMP CLERK): -chronic, stable -Discussed/ordered labs -continue seeing Cardiology [...] Werner Assessment & Plan (04/08/2021 8:55 AM STAMP CLERK): HPI: Condition is stable A&P: Discussed/ordered labs, [...] addition of loop diuretic. 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 Werner every 6 mo Assessment & Plan (04/08/2021 9:24 AM STAMP CLERK): HPI: Condition is stable A&P: Discussed/ordered labs, encouraged healthy, low carbohydrate lifestyle and at least 150min/week of exercise, continue on Eliquis 5 mg twice daily continue follow-up with cardiology-Dr. Elizabeth Assessment & Plan (02/25/2021 11:14 AM CDT): Patient has had no major bleeding events, she will continue with long-term anticoagulation. Hypokalemia 06/06/2020 Assessment & Plan (07/14/2023 2:03 PM STAMP CLERK): -chronic, stable -Discussed/ordered labs -continue seeing Cardiology -continue on Eliquis 5 mg every 12 hours, furosemide 20 mg daily, metoprolol 50 mg twice daily, nifedipine XL 60 mg daily, potassium ER 20 mEq twice daily, Rosuvastatin 5 mg daily Assessment & Plan (05/04/2023 3:54 PM STAMP CLERK): Received critical results after patient left. BMP [...] exercise Assessment & Plan (07/14/2023 2:07 PM STAMP CLERK): -chronic, stable -Discussed/ordered labs -recommend healthy low carb diet and increase exercise Assessment & Plan (05/04/2023 3:52 PM STAMP CLERK): Will recheck hemoglobin A1c today. Recommended healthy diet, incorporating fruits, vegetables and adequate amounts of water along with mild-moderate daily exercise as tolerated; Assessment & Plan (08/06/2022 9:05 AM CDT): Had A1c drawn in June and labs A1c was 6.3%. Recommend low carb diet. Continue her exercise habits. Will continue to monitor Assessment & Plan (04/22/2022 8:01 AM STAMP CLERK): Stable. Recommended healthy diet, incorporating fruits, vegetables and adequate amounts of water along with mild-moderate daily exercise as tolerated; Assessment & Plan (10/16/2021 7:24 AM CDT): HPI: Condition is stable A&P: Discussed/ordered labs, encouraged healthy, low carbohydrate lifestyle and at least 150min/week of exercise Assessment & Plan (04/08/2021 7:19 AM STAMP CLERK): HPI: Condition is stable A&P: Discussed/ordered labs, encouraged healthy, low carbohydrate lifestyle and at least 150min/week of exercise History of adenomatous polyp of colon 04/07/2016 Overview (04/08/2021): Last colonoscopy 07/[address] Noguera (GI) Repeat in 5 yrs. Assessment & Plan (01/17/2024 8:01 AM CDT): Last colonoscopy completed 07/15/2020 Repeat in 5 years Assessment & Plan (07/14/2023 2:06 PM STAMP CLERK): Last colonoscopy completed 07/15/2020 Repeat in 5 years Assessment & Plan (10/16/2021 7:24 AM CDT): Last colonoscopy 07/[address] Noguera (GI), repeat in 5 yrs. Assessment & Plan (04/08/2021 7:20 AM STAMP CLERK): Last colonoscopy 07/[address] Noguera (GI) [...] normal. Assessment & Plan (07/14/2023 2:02 PM STAMP CLERK): -chronic, stable -Discussed/ordered labs -continue seeing Cardiology [...] Werner Assessment & Plan (04/08/2021 7:21 AM STAMP CLERK): HPI: Condition is stable A&P: Discussed/ordered labs, encouraged healthy, low carbohydrate lifestyle and at least 150min/week of exercise, continue on Furosemide 20 mg daily, Metoprolol tartrate 25 mg twice daily, nifedipine 60 mg Daily, potassium chloride 10 mEq twice daily, rosuvastatin 5 mg daily Urinary incontinence 07/22/2009 Assessment & Plan (07/14/2023 2:07 PM STAMP CLERK): -chronic, stable -Discussed/ordered labs -continue on oxybutynin 5 mg twice daily Assessment & Plan (10/16/2021 11:18 AM CDT): HPI: Condition is not controlled A&P: Discussed/ordered labs, encouraged healthy, low carbohydrate lifestyle and at least 150min/week of exercise, stop taking the oxybutynin 5mg twice daily Trial on myrbetriq 25mg daily Assessment & Plan (04/08/2021 9:27 AM STAMP CLERK): HPI: Condition is stable, she reports that [...] daily Assessment & Plan (07/14/2023 2:02 PM STAMP CLERK): -chronic, stable -Discussed/ordered labs -continue seeing Cardiology [...] management Assessment & Plan (04/22/2022 8:01 AM STAMP CLERK): Stable/ Improved. Blood pressure is adequately controlled [...] Werner Assessment & Plan (04/08/2021 7:21 AM STAMP CLERK): HPI: Condition is stable A&P: Discussed/ordered labs, [...] time. Assessment & Plan (07/16/2020 12:26 PM STAMP CLERK): Patient's home blood pressures ranging 165-185/91-98. Will keep patient on Metoprolol 50mg BID since patient has not began the medication with the change (did not see [place] message). Denies feeling symptomatic. Patient to keep home BP readings and bring to next follow up in 2 weeks with her home BP machine. Pt to let us know if she feels any adverse reaction to increasing the Metoprolol dose. Assessment & Plan (07/05/2020 1:28 PM STAMP CLERK): BP journal until next follow up (1-2 [...] daily Assessment & Plan (07/14/2023 2:06 PM STAMP CLERK): -chronic, stable -Discussed/ordered labs -continue on levothyroxine [...] day Assessment & Plan (04/22/2022 8:00 AM STAMP CLERK): Lipid abnormalities are stable. Pharmacotherapy as ordered. [...] day. Assessment & Plan (04/08/2021 7:19 AM STAMP CLERK): HPI: Condition is stable A&P: Discussed/ordered labs, [...] day. Assessment & Plan (07/05/2020 1:29 PM STAMP CLERK): Most recent thyroid function showed normalcy Will continue levothyroxien at 112 mcg daily Resolved Problems Problem Noted Date Diagnosed Date Resolved Date Tendonitis, Achilles, left 05/04/2023 0 07/12/2023 Assessment & Plan (05/04/2023 3:53 PM STAMP CLERK): Refer to podiatry for Achilles tendonitis Body mass index (BMI) 31.0-31.9, adult 02/09/2023 07/14/2023 Assessment & Plan (02/09/2023 9:26 AM CDT): BMI Follow-up includes: nutrition counseling. Stage 3a chronic kidney disease 02/09/2023 07/14/2023 Assessment & Plan (05/04/2023 3:55 PM STAMP CLERK): Referred back to Nephrology. However today her [...] tomatoes, oranges, milk, dark kathi and chocolate. [place] juice, citrus juices, and tomato juice are [...] (07/08/2020): Added automatically from request for surgery [id number] Neuropathy 07/05/2020 07/12/2023 Overview (07/05/2020): noted during [...] podiatry Assessment & Plan (04/08/2021 9:25 AM STAMP CLERK): HPI: Condition is A&P: Discussed/ordered labs, encouraged [...] h air and hair follicles 12/03/2005 07/12/2023 Immunizations Immunization Administration Dates Next Due Influenza, [...] PPV23 05/21/2014 Tdap 05/27/2018,03/08/2006 ZOSTER Recombinant 02/09/2022,07/31/2021 Social History Tobacco Use Types Packs/Day Years [...] on file Legal Sex Female 2:53 PM STAMP CLERK Gender Identity Female 08/19/2020 7:43 PM CDT Sexual Orientation Straight 09/24/2020 8: 49 AM CDT 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 file Not on file Last Filed Vital Signs Vital Sign Reading Time Taken Comments Blood Pressure 130/66 04/19/2024 9:51 AM STAMP CLERK Pulse 68 04/19/2024 9:51 AM STAMP CLERK Temperature 36.2 C (97.2 F) 01/17/2024 10:40 AM CDT Respiratory Rate 16 04/19/2024 9:51 AM STAMP CLERK Oxygen Saturation 99% 04/19/2024 9:51 AM STAMP CLERK Inhaled Oxygen Concentration - - Weight 86.6 kg (191 lb) 04/19/2024 9:51 AM STAMP CLERK Height 171 cm (5' 7.32) 01/17/2024 10:40 AM CDT Body Mass Index 29.63 01/17/2024 10:40 AM CDT Plan of Treatment Not on file Procedures Procedure Name Priority Date/Time Associated Diagnosis [...] SCREENING Routine 01/29/2022 COLONOSCOPY 07/15/2020 11:52 AM STAMP CLERK from Last 3 Months or Most Recently [...] AM CDT 09/27/2024 8:21 AM CDT Narrative [facility] - 09/27/2024 8:37 AM CDT Patient is just starting on warfarin and will have additional lab that need drawn. Roxanne Werner MD LAB BLOOD ORDERABLES F inal Result Performing Organization Address [facility] Co de Phone Number KEREN GAMEZ [phone] [facility] [place], [place] [employer] [place], [place] [id number] * (ABNORMAL) Protime-INR (09/08/2024 8:07 AM CDT) [...] 8:07 AM CDT 09/08/2024 8:07 AM CDT [facility] - 09/08/2024 8:22 AM CDT Patient is just starting on warfarin and will have additional lab that need drawn. Roxanne Werner MD LAB BLOOD ORDERABLES F inal Result Performing Organization Address [facility] Co de Phone Number KEREN GAMEZ [phone] [facility] [place], [place] [employer] [place], [place] [id number] * (ABNORMAL) Protime-INR (08/24/2024 11:01 AM CDT) [...] 1 AM CDT 08/24/2024 11:01 AM CDT Martina VELIZ - 08/24/2024 11:35 AM CDT Patient is just starting on warfarin and will have additional lab that need drawn. Roxanne Werner MD LAB BLOOD ORDERABLES F inal Result ANSELMOMARIAMA [id number] [place] [address] * (ABNORMAL) Protime-INR (07/31/2024 9:30 AM CDT) PT 21.6(H) 9.7 - 13.0 sec INR 1.97(H) 0.90 - 1.[address] [facility] Comment: Interpretive data Oral anticoagulant therapeutic ranges: [...] ORDERABLES F inal Result Performing Organization Address City/[facility]/ZIP Co de Phone Number KEREN GAMEZ [address] [place] [address] * (ABNORMAL) Protime-INR (07/17/2024 8:55 AM CDT) PT 23.8(H) 9.7 - 13.0 sec INR 2.17(H) 0.90 - 1.20 [facility] Comment: Interpretive data Oral anticoagulant therapeutic ranges: [...] LAB BLOOD ORDERABLES F inal Result KEREN [id number] [facility] [place] [address] * (ABNORMAL) Pro B-type natriuretic peptide (07/17/2024 [...] et.al. Eur Heart J. 2006:27:330-337. 2. Brett RW, Dimple ROBISON. J. AM Mariah Cardiol: Cardiovasc Imag. 2009;2: 216- 225. Interpretive Data Last Revised Date: 2017. Blood 07/17/2024 8:54 AM CDT 07/17/2024 8:54 AM CDT us Roxanne Werner MD LAB BLOOD ORDERABLES F inal Result Performing Organization Address City/[facility]/ZIP Co de Phone Number KEREN [phone] Department [place] [address] * (ABNORMAL) eGFR (01/17/2024 11:43 AM CDT) [...] 3 AM CDT 01/17/2024 11:53 AM CDT us Karolyn Evans NP LAB BLOOD ORDERABLES Final R esult KEREN BROWNLEE BILL) 1 [facility] Department [place] [address] * (ABNORMAL) Hemoglobin A1c (01/17/2024 11:43 AM CDT) Hgb A1C 6.6(H) 4.0 - 5.6 % Estimated Average Glucose 143 mg/dL KEREN BROWNLEE (BILL) Comment: The ADA recommends reporting an estimated Average Glucose (eAG) with all Hemoglobin A1c results using the equation derived from a study of 507 normal and diabetic adults. Minority populations were underrepresented and children were not included. (Diabetes Care 31:9962-8635, 2008). The eAG is not equivalent to a fasting glucose. Blood 01/17/2024 11:4 3 AM CDT 01/17/2024 11:53 AM CDT Karolyn Evans NP LAB BLOOD ORDERABLES Final R esult Performing Organization Address [facility] Co de Phone Number KEREN BROWNLEE ([place]) [address] [facility] [place] [address] * Lipid panel (01/17/2024 11:43 AM CDT) Pathologist [facility] Cholesterol 138 30 - 199 mg/dL Comment: [...] 2004;110:227 3. [place] Tong al. [place] Cardiol. 2020 September 07;5(5):540-548. doi: [email or web address] Current Interpretive Data was [...] on 2017. 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 MF: SONIDO Report ID: [id number] Reading Location: [id number] Procedure Note Rl Leon MD - 07/28/2023 EXAM DESCRIPTION: DEXA AXIAL SKELETON BONE DENSITY 1 OR MORE SITES REASON FOR STUDY: 73 y/o year old F with given history of:Preventative screening Postmenopausal Regional Service Manager/Model: Encapson (S/N [id number]) CLINICAL INFORMATION: Current height: 66.5 inches Maximum [...] Rl Leon M.D. MF: SONIDO Report ID: [id number] Reading Location: [place] [address] Karolyn Evans NP IMG DXA PROCEDURES Final Res ult * HM HEPATITIS C SCREENING (01/29/2022) SCRIBED HCV ab non Blood Historical Provider HEALTH MAINTENANCE Final Result * COLONOSCOPY (07/15/2020 11:52 AM STAMP CLERK) Anatomical Region Laterality Modality Other Narrative Procedure Note Victor Manuel Noguera MD - 07/15/2020 11:52 AM CST [facility] Patient Name: Arabella Hankins Procedure Date: 07/15/2020 11:52 AM Date of : 1950 Admit Type: Outpatient Age: 70 Gender: Female Note Status: Finalized Attending MD: Victor Manuel Noguera M.D. Procedure Date: 07/15/2020 Procedure: Colonoscopy Indications: High risk colon cancer surveillance: Personalhistory of colonic polyps, Last colonoscopy: 2015 Providers: Victor Manuel Noguera M.D., ADRIENNE Lemus (Anesthesia Staff), Bridgett Cullen, MAURA, MAURA Corbett Referring MD: Sudhir Espinoza M.D. [...] by the physician, the nurse and the semiconductor dies loader in the procedure room. Mental Status Examination: [...] for surveillance. Procedure Code(s): --- Professional --- 46497, Colonoscopy, flexible; with removal of tumor(s), polyp(s), or other lesion(s) by snare technique 24750, 59, Colonoscopy, flexible; with biopsy,single or multiple Diagnosis Code(s): --- Professional --- K63.5, Polyp of colon Z86.010, Personal history of colonic polyps K57.30, Diverticulosis of large intestine without perforation or abscess without bleeding CPT copyright 2019 [employer] [place] [employer]. All rights reserved. The codes documented in this report are preliminary and upon jewelry casting model maker reviewmay be revised to meet current compliance requirements. Electronically signed by Victor Manuel Noguera M.D. Victor Manuel Noguera M.D. 07/15/2020 12:24:51 PM Number of Addenda: 0 Note Initiated On: 07/15/2020 11:52 AM Victor Manuel Noguera MD ENDOSCOPY PROCEDURES Fi nal Result from Last 3 Months or Most Recently Relevant to Health Maintenance Insurance [facility] MEDICARE ADVANTAGE UHC MEDICARE ADVANTAGE UHC MEDICARE ADVANTAGE [facility] Address: [id number] [place] [id number] Advance Directives For more information, please contact: [phone] * Full Code (Latest Code Status on File) Date Activated Date Inactivated Comments 06/06/2020 6:21 PM 06/10/2020 10:52 PM * Full Code Date Activated Date Inactivated Comments 06/06/2020 6:21 PM 06/06/2020 6:21 PM Care Teams Planning Management It Specialist Relationship Specialty [place] [address] [address] [address] PCP - General Family Medicine 09/08/24 Roxanne Werner MD [address] [place] [address] Consulting Physician Cardiology 07/31/21 Ata Bronson DPM [address] [place] [address] Consulting Physician Foot and Ankle Surg 07/31/21
--- OUTSIDE RECORDS SUMMARY | 2024-10-09 09:24 | XMS_ITS | Encounter Summary ---
Author Organization [facility] Address [address] [place] [address] Care Team Providers Care Stopping Builder Name Role Phone Michael Smith MD Primary Care Provider [phone] Encounter Details Date Type Department Care Team (Latest Contact Info) Description 09/26/2004 Outpatient Historical HIS [facility] Jonel Mulligan MD [address] [facility] [address] [place] [address] SCREENING MAMM-MAILG NEOPL-OTHER (Primary Dx) Social History Tobacco Use Types Packs/Day Years Used Date Smoking Tobacco: Never Assessed Comments Unknown Sex and Gender Information Value Date Recorded Sex Assigned at Not on file Legal Sex 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 Gender Identity Not on file Sexual Orientation Not on file documented as of this encounter Plan of Treatment Not on file documented as of this encounter Visit Diagnoses Diagnosis Other screening mammogram- Primary documented in this encounter Additional Health Concerns Infection Onset Date Last Indicated Resolved Time R/O COVID-19 05/17/2020 05/20/2020 05/20/2020 3:21 PM BLEACHER SULFITE PULP documented as of this encounter Care Teams Stopping Builder Relationship Specialty Start Date End Date Michael Smith MD [address] [place] [address] PCP - General 04/28/01 10/23/20 documented as of this encounter
--- OUTSIDE RECORDS SUMMARY | 2024-10-09 09:24 | XMS_ITS | Encounter Summary ---
Author Organization [facility] Address [address] [place] [address] Care Team Providers Care Leasing Manager Name Role Phone Michael Smith MD Primary Care Provider [phone] Encounter Details Date Type Department Care Team (Latest Contact Info) Description 10/14/2005 Outpatient Historical [facility] Jonel Mulligan MD [address] 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 Gender Identity Not on file Sexual Orientation Not on file documented as of this encounter Plan of Treatment Not on file documented as of this encounter Visit Diagnoses Diagnosis Diffuse cystic mastopathy- Primary documented in this encounter Additional Health Concerns Infection Onset Date Last Indicated Resolved Time R/O COVID-19 05/17/2020 05/20/2020 05/20/2020 3:21 PM SALT MINER documented as of this encounter Care Teams Leasing Manager Relationship Specialty Start Date End Date Michael Smith MD [address] [place] [address] PCP - General 04/28/01 10/23/20 documented as of this encounter
--- OUTSIDE RECORDS SUMMARY | 2024-10-09 09:24 | XMS_ITS | Encounter Summary ---
Author Organization [facility] Address [address] [place] [address] Care Team Providers Care Lead Setter Name Role Phone Michael Smith MD Primary Care Provider [phone] Encounter Details Date Type Department Care Team (Late st Contact Info) Description 06/06/2007 Orders Only [facility] Internal Medicine [address] [place] [address] Michael Smith MD [address] [facility] [address] [place] [address] Social History Tobacco Use Types Packs/Day Years Used Date Smoking Tobacco: Never Assessed Comments Unknown Sex and Gender Information Value Date Recorded Sex Assigned at Not on file Legal 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 Gender Identity Not on file Sexual Orientation Not on file documented as of this encounter Progress Notes * Michael Smith MD - 09/21/2007 9:17 PM CDT TIME:09:59 am PATIENT`S HOME PHONE: PATIENT`S WORK PHONE: PATIENT`S INSURANCE: [employer] PPO WHO TOOK THE CALL: Sugey Ortega SECTION 1: REQUESTED ACTION va 06/06/07 at 09:59 am: MEDICATION REQUEST: * Michael Smith MD - 09/21/2007 9:17 PM CDT TIME:10:00 am PATIENT`S HOME PHONE: PATIENT`S WORK PHONE: PATIENT`S INSURANCE: [employer] PPO WHO TOOK THE CALL: Sugey Ortega Pharmacy number [phone] SECTION 1: Call to patient lab show cholesterol total 207,hdl 62 very good,ldl 123 ok,no diabetes,kidney and liver ok,blood count normal,thyroid ok,vit b12 is a little low give it every other week per JWK.Patient aware and needs a refill and syringes.Also next time pt gets blood drawn she would like to know her blood type.//mp REQUESTED ACTION 06/06/07 at 10:00 am: MEDICATION REQUEST: MEDICATION REQUEST: . MEDICATIONS: VITAMIN B-12 INJECTION SOLUTION 1000 MCG/ML MILLILITERS, One cc IM monthly, 30 Dispensed, 1 Fills, status: DISCONTINUED HISTORY, 06/06/2007. VITAMIN B-12 INJECTION SOLUTION 1000 MCG/ML, One CC IM every other week, 1 Dispensed, 1 Fills, status: NEW HISTORY, 06/06/2007. Electronically Signed by: Michael Smith MD on Wednesday, June 06, 2007 * Michael Smith MD - 09/21/2007 9:06 PM CDT TIME:04:46 pm PATIENT`S HOME PHONE: PATIENT`S WORK PHONE: PATIENT`S INSURANCE: [employer] PPO WHO TOOK THE CALL: Sugey Ortega GENERAL INFORMATION PATIENT STATUS: Established Patient. LAST VISIT: 05/30/2007 PCP: PHARMACY NUMBER: [phone] SECTION 1: REQUESTED ACTION 06/06/07 at 04:46 pm: MEDICATION REQUEST: MEDICATIONS: BD DISP NEEDLE MISCELLANEOUS 25G X 1, status: NEW HISTORY, 06/06/2007. VITAMIN B-12 INJECTION SOLUTION 1000 MCG/ML, One CC IM every other week, 1 Dispensed, 1 Fills, status: DISCONTINUED HISTORY, 06/06/2007. DOCTOR`S RESPONSE: toi 06/06/07 at 06:02 pm MEDICATIONS: SYRINGE MISCELLANEOUS 20G X 1 3 ML, Use two times per month, 30 Dispensed, status: NEW PRESCRIPTION, 06/06/2007. VITAMIN B-12 INJECTION SOLUTION 1000 MCG/ML MILLILITERS, One CC IM every other week, 30 Dispensed, 1 Fills, status: NEW PRESCRIPTION, 06/06/2007. called in spoke to Chaparrita.//bree Electronically Signed by: Sugey Ortega on Thursday, June 07, 2007 documented in this encounter Plan of Treatment Not on file documented as of this encounter Visit Diagnoses Not on filedocumented in this encounter Additional Health Concerns Infection Onset Date Last Indicated Resolved Time R/O COVID-19 05/17/2020 05/20/2020 05/20/2020 3:21 PM CEMENT AND CONCRETE PLANT WORKER documented as of this encounter Care Teams Lead Setter Relationship Specialty Start Date End Date Michael Smith MD [address] [address] PCP - General 04/28/01 10/23/20 documented as of this encounter
--- OUTSIDE RECORDS SUMMARY | 2024-10-09 09:24 | XMS_ITS | Encounter Summary ---
Author Organization [facility] Address [address] [place] [address] Care Team Providers Care Security Systems Sales Representative Name Role Phone Michael Smith MD Primary Care Provider [phone] Encounter Details Date Type Department Care Team (Late st Contact Info) Description 04/30/2003 Outpatient Historical [facility] Internal Medicine [address] [place] [address] Michael Smith MD [address] [place] [address] Social History Tobacco Use Types Packs/Day Years Used Date Smoking Tobacco: Never Assessed Comments Unknown Sex and Gender Information Value Date Recorded Sex Assigned at Not on file Legal Sex Female 4:52 AM MEMBERSHIP DIRECTOR Gender Identity Not on file Sexual Orientation Not on file documented as of this encounter Plan of Treatment Not on file documented as of this encounter Visit Diagnoses Not on filedocumented in this encounter Additional Health Concerns Infection Onset Date Last Indicated Resolved Time R/O COVID-19 05/17/2020 05/20/2020 05/20/2020 3:21 PM MEMBERSHIP DIRECTOR documented as of this encounter Care Teams Security Systems Sales Representative Relationship Specialty Start Date End Date Michael Smith MD [address] [place] [address] PCP - General 04/28/01 10/23/20 documented as of this encounter
--- OUTSIDE RECORDS SUMMARY | 2024-10-09 09:24 | XMS_ITS | Encounter Summary ---
Author Organization [facility] Address [address] [place] [address] Care Team Providers Care Legal Consultant Name Role Phone Michael Smith MD Primary Care Provider [phone] Encounter Details Date Type Department Care Team (Late st Contact Info) Description 04/11/2007 Orders Only [facility] Internal Medicine [address] [place] [address] Michael Smith MD [address] [facility] [address] [place] [address] Social History Tobacco Use Types Packs/Day Years Used Date Smoking Tobacco: Never Assessed Comments Unknown Sex and Gender Information Value Date Recorded Sex Assigned at Not on file Legal Sex Female 4:52 AM RADIO REPORTER Gender Identity Not on file Sexual Orientation Not on file documented as of this encounter Progress Notes * Michael Smith MD - 09/22/2007 9:20 AM CDT WEIGHT: 188lbs PULSE: 55 Right Radial, Regular NURSE NAME: Sugey Ortega CHIEF COMPLAINT Here for follow up evaluation of a prior diagnosis. HISTORY: HISTORY: 281.1-B12 DEFICIENT ANEMIA The patient said that she has not been getting her B 12 shots regularly.She has the supplies at home and this has been done this way for a number of years. Her mother usually gave them to her but her mother is unable and the patient has been somewhat lacking in compliance. 401.1-HYPERTENSION ESSENTIAL BENIGN The patient has gained weight. The patient is somewhat compliant with diet. The patient`s exercise is the same. The patient denies chest pain, shortness of breath,dyspnea on exertion, pedal edema, or headache. The patient is tolerating the medication. HISTORY OF PRESENT ILLNESS: She complains of pain in her foot. She has pain when she puts weight onher forefoot. She has a lump underneath her forefoot. This does interfere with her activity level. CURRENT MEDICATION LIST: [id number] ORAL TABLET 50-325-40 MG, Take one tablet by mouth every 4 hours as neededfor headache ESTRACE ORAL TABLET 2 MG, 1 Every Day VITAMIN B-12 INJECTION SOLUTION 1000 MCG/ML, One cc IM monthly AMILORIDE HCL ORAL TABLET 5 MG, 1 Every Day LEVOXYL ORAL TABLET 112 MCG, Take one tab po every day CURRENT ALLERGY LIST: DYAZIDE SULFA DRUGS ROS: GENERAL: Normal activity and energy level, no change in appetite. No major weight gain or loss. No malaise, chills, fever, diaphoresis. CARDIAC: No chest pain, palpitations, orthopnea, dyspnea on exertion, or paroxysmal nocturnal dyspnea. RESPIRATORY: No dyspnea, cough, hemoptysis or wheezing. PAST MEDICAL HISTORY: MEDICAL: Hypertension, migraine headaches.Polyglandular syndrome-hypothyroid, alopecia, pernicious anemia., +PPD S/P treatment, tubular adenoma on past two colonoscopies, last one 11/18/2004 SURGICAL: Complete thyroidectomy, abdominal hysterectomy with bilateral salpingo-oophorectomy, tonsils and adenoids. PHYSICAL EXAMINATION: CONSTITUTIONAL: GENERAL APPEARANCE: -Malagasy female, normal body habitus. NECK/THYROID: TOTAL THYROIDECTOMY. RESPIRATORY: Clear to auscultation and percussion. Normal respiratory effort. CARDIOVASCULAR: CARDIAC: Regular rhythm. No murmurs, rubs, or gallops. ARTERIAL: Normal carotids. EDEMA/VARICOSITIES OF EXTREMITIES: No edema. MUSCULOSKELETAL EXAM: EXTREMITIES: RIGHT LWR EXTREMITY: There is loss of lateral arch and there is a callous over the middle metatarsal phalangeal joint. There is some tenderness to this. She has early hammertoe formation. ASSESSMENT/PLAN: 281.1-B12 DEFICIENT ANEMIA ASSESSMENT: Reviewed and reminded the patient that she needs to take her B 12 injections monthly toavoid anemia and central and peripheral nervous system dysfunction. She indicates that she understands and will be compliant. 401.1-HYPERTENSION ESSENTIAL BENIGN ASSESSMENT: She is not at goal. Will add the medication below. MEDICATIONS: AMLODIPINE BESYLATE ORAL TABLET 5 MG, 1 Every Day, 30 Dispensed, 1 Fills, status: NEW PRESCRIPTION,04/11/2007. 719.47-OTHER AND UNSPECIFIED DISORDERS OF JOINT ASSESSMENT: The patient has loss of lateral arch and has metatarsalgia. Will send her to podiatry, hopefully for at least some inserts with metatarsal support. REPEAT VITAL SIGNS: BLOOD PRESSURE: 150/92. Right Arm Sitting SPECIALTY REFERRAL: PODIATRY Dr. Ata Reeder: ph: [phone] fax: [phone] [place]: ph: [phone] fax: [phone] [place]: ph: [phone] fax: [phone].Sent to [facility]. [facility]. Electronically Signed by: Michael Smith MD on Friday, May 11, 2007 documented in this encounter Plan of Treatment Not on file documented as of this encounter Visit Diagnoses Not on filedocumented in this encounter Additional Health Concerns Infection Onset Date Last Indicated Resolved Time R/O COVID-19 05/17/2020 05/20/2020 05/20/2020 3:21 PM RADIO REPORTER documented as of this encounter Care Teams Legal Consultant Relationship Specialty Start Date End Date Michael Smith MD [address] [facility] [address] [place] [address] PCP - General 04/28/01 10/23/20 documented as of this encounter
--- OUTSIDE RECORDS SUMMARY | 2024-10-09 09:24 | XMS_ITS | Clinical Summary ---
Author Organization [facility] Administrative Offices Address [address] [place] [address] Care Team Providers Care Senior Patient Account Representative Name Role Phone Unavailable Primary Care Provider Unavailabl e Allergies Active Allergy Reactions Criticality Noted Date Comments Sulfa (Sulfonamide Antibiotics) 01/08 Medications Cyanocobalamin (VITAMIN B-12) 2,[address] 2,500 mcg under tongue every 7 days. 50 Tab 2 2 Active multivitamin (DAILY-ENMANUEL) tablet Take 1 Tablet by mouth daily. Active amLODIPine (NORVASC) 5 mg tablet TAKE 1 TABLET EVERY DAY 90 Tablet 3 0 Active indapamide (LOZOL) 1.25 mg tablet TAKE 1 TABLET EVERY OTHER DAY 45 Tablet 3 0 Active rosuvastatin (CRESTOR) 5 mg tabletIndications:M ixed hyperlipidemia Take 1 Tablet (5 mg) by mouth daily at bedtime. 90 Tablet 3 0 Active potassium chloride (KLOR-CON) 10 mEq Extended Release tabletIndications:E ssential hypertension, benign,Hypokalemia Take 1 Tablet (10 mEq) by mouth daily. 90 Tablet 3 0 Active levothyroxine 112 mcg tablet Take 1 Tablet (112 mcg) by mouth daily. 90 Tablet 3 0 Active Vitamin B-1 100 mg tablet TAKE 1 TABLET EVERY DAY 90 Tablet 3 1 Active Active Problems Problem Noted Date Diagnosed Date S/P cholecystectomy 06/16/2018 Prediabetes 08/17/2016 History of adenomatous polyp of colon 04/07/2016 Paresthesia of both feet 06/07/2015 Aortic stenosis, mild 07/21/2011 Overview (07/21/2011): 05/15/2011 Study Conclusions: Summary: - Left ventricle: [...] size was normal. Systolic function was normal. s/p sacrospinous, sling & SPT, E/C/R, A&P, adhes iolysis 12/31/2009 Urinary incontinence 07/22/2009 Cervical adenopathy 12/17/2007 Other vitamin B12 deficiency anemia 03/08/2006 Essential hypertension, benign 03/08/2006 Hypothyroidism 03/08/2006 Other specified disease of hair and hair follicl es 12/03/2005 Resolved Problems Problem Noted Date Diagnosed Date Resolved Date Edema 08/18/2007 12/17/2007 Pain in limb 08/18/2007 12/17/2007 Headache(784.0) 08/18/2007 12/17/2007 Pain in joint, ankle and foot 04/11/2007 12/17/2007 Pain in joint, lower leg 08/17/200601/2008 Acute upper respiratory infe ctions of unspecified site 08/17/2006 12/17/2007 Mitral and aortic heart valv e diseases, unspecified 03/08/2006 07/21/2011 Pain in joint, hand 03/08/2006 12/17/19 08 Need for prophylactic vaccin ation with combined jnpotpufvh-kawzall-mnkqzbhpf (DTP) vaccine 03/08/2006 12/17/2007 Benign neoplasm of colon 03/08/200601/2008 Immunizations Immunization Administration Dates Next Due (ADACEL/BOOSTRIX)(10 YR UP) TDAP VACCINE, 0.5ML, IM 05/27/2018,03/08/2006 (PNEUMOVAX 23)(50 YRS UP) PN EUMOCOCCAL POLYSACCHARIDE (PPV23) 0.5 ML, IM 05/21/2014 (PREVNAR 13)(6 WKS UP) PNEUM OCOCCAL CONJUGATE (PCV13) 0.5 ML, IM 05/17/2015 Influenza Seasonal Unspecifi ed Formulation IM 03/05/2015 Influenza Vaccine High Dose 65+ Yrs IM 7,03/05/2015,05/21/2014 Family History Medical History Relation Name Comments Heart Disease Brother 1 Cancer Brother 2 kidney Hypertension Brother 2 Other Brother 2 ARF Heart Disease Father Hypertension Father Diabetes Mother Hypertension Mother Other Mother ESRD Other Sister 1 aneurysm Breast Cancer Sister 2 Diabetes Sister 2 Colon Cancer Neg Hx Relation Name Status Comments Brother 1 Brother 2 Father Mother Sister 1 Sister 2 Social History Tobacco Use Types Packs/Day Years Used Date Smoking Tobacco: Never Smokeless Tobacco: Never Tobacco Cessation:Counseling Given: No Alcohol Use Standard Drinks/Week Comments No 0 (1 standard drink = 0.6 oz pur e alcohol) Comments No Sex and Gender Information Value Date Recorded Sex Assigned at Not on file Legal Sex Female 4:52 AM METAL GAUGE MAKER Gender Identity Not on file Sexual Orientation Not on file Occupation Industry Job Start Date Job End Date Not on file Not on file Not on file Not on file Last Filed Vital Signs Vital Sign Reading Time Taken Comments Blood Pressure 128/84 06/29/2019 8:24 AM METAL GAUGE MAKER Pulse 67 05/30/2019 1:31 PM METAL GAUGE MAKER Temperature 36.9 C (98.5 F) 05/30/2019 1:16 PM METAL GAUGE MAKER Respiratory Rate 18 05/30/2019 1:31 PM METAL GAUGE MAKER Oxygen Saturation 95% 05/30/2019 1:31 PM METAL GAUGE MAKER Inhaled Oxygen Concentration - - Weight 91.2 kg (201 lb) 06/29/2019 8:24 AM METAL GAUGE MAKER Height 170.2 cm (5' 7) 06/29/2019 8:24 AM METAL GAUGE MAKER Body Mass Index 31.48 06/29/2019 8:24 AM METAL GAUGE MAKER Plan of Treatment Health Maintenance Due Date Last Done Comments ZOSTER VACCINE (1 of 2) 02/02/1998 RSV VACCINE (60+ or ) (1 - 1-dose 75+ series) 02/02/2023 COLORECTAL SCREENING 07/16/2023 07/15/2020, 05/30/2019, 05/30/2019, Additional history exists INFLUENZA VACCINE (#1) 2023 7, 03/05/2015, 03/05/2015, Additional history exists OSTEOPOROSIS SCREENING 08/26/2025 1, 06/11/2015, 07/16/2008 DTAP/TDAP/TD VACCINES (3 - T d or Tdap) 05/27/2028 05/27/2018, 03/08/2006 PNEUMOCOCCAL VACCINE 50+ YEARS Completed 05/17/2015 , 05/21/2014 Medical Devices Implanted Type Area Supervisor Facepiece Line Device Identifier Shelf Expiration Date Model / Serial / Lot Log [id number] - Bladder Slings And Tapes - 1 - Sling Desara System Rigoberto-Ds01 Implanted:Qty: 1 on 12/31/2009 at [facility] Sling N/A: Vagina [employer] 07/08/2014 [id number]-DS01 / / [id number] Description:vaginal apex Log [id number] - Bladder Slings And Tapes - 1 - Sling Desara System Rigoberto-Ds01 Implanted:Qty: 1 on 12/31/2009 at [facility] Sling N/A: Urethra [employer] 11/07/2012 [id number]-DS01 / / [id number] Description:mid urethra Procedures Procedure Name Priority Date/Time Associated Diagnosis Comments COLONOSCOPY REPORT 05/30/2019 1: 16 PM METAL GAUGE MAKER XR DEXA BONE DENSITY AXIAL 1 OR MORE SITES Routine 06/11/2015 9:09 AM METAL GAUGE MAKER Age-related osteoporosis without current pathological fracture from Last 3 Months or Most Recently Relevant to Health Maintenance Results * COLONOSCOPY REPORT (05/30/2019 1:16 PM METAL GAUGE MAKER) Narrative Procedure Note John Prado MD - 05/30/2019 1:15 PM CST [facility] Endoscopy Patient Name: Arabella Hankins Procedure Date: 05/30/2019 Date of : 1950 Admit Type: Outpatient Attending MD: John Prado MD Procedure: Colonoscopy Indications: Increased risk screening: personal history of colonic polyps Providers: John Prado MD Referring MD: Michael Smith MD Medicines: Monitored Anesthesia Care Complications: No immediate complications. Procedure: Informed consent was obtained for the procedure, including moderate sedation after risks were discussed. Based on the pre-procedure assessment, including review of the patient's medical history, medications, allergies, and review of systems, the patient was deemed to be an appropriate candidate for sedation. A timeout was performed. Continuous ECG monitoring, pulse oximetry, blood pressure monitoring, and direct observation were performed. The colonoscope was introduced through the anus and advanced to the cecum, identified by appendiceal orifice and ileocecal valve. The colonoscopy was performed with ease. The patient tolerated the procedure well. The quality of the bowel preparation was excellent. Estimated Blood Loss: None. Findings: Small internal hemorrhoids were found during retroflexion. A few small-mouthed diverticula were found in the sigmoid colon. A 3 mm polyp was found in the cecum. The polyp was pedunculated. The polyp was removed with a cold snare, but the tiny specimen did not survive aspiration into the polyp trap. Impression: - Small internal hemorrhoids. - Diverticulosis in the sigmoid colon. - One 3 mm polyp in the cecum, removed with a cold snare. Resected and retrieved. Recommendation: - Repeat colonoscopy in 5 years for screening purposes. John Prado MD 05/30/2019 1:15:09 PM This report has been signed electronically. Number of Addenda: [address]; [place] [address] John Prado MD GI PROCEDURE ORDERABLES Final Re sult * XR DEXA BONE DENSITY AXIAL 1 OR MORE SITES (06/11/2015 9:09 AM METAL GAUGE MAKER) Anatomical Region Laterality Modality Digital Radiogra phy 06/11/2015 8:58 AM METAL GAUGE MAKER Narrative 06/11/2015 11:50 AM METAL GAUGE MAKER XR DEXA BONE DENSITY AXIAL 1 OR MORE SITES Dictated from Location 1 ([facility]) HISTORY 65 year-old F with post menopausal symptoms. PROCEDURE: Planar images of the lumbar spine and hip(s) using a [employer] DEXA scanner for bone mineral density determination (BMD). Compared to the prior bone density performed 07/16/2008 FINDINGS: Lumbar Spine (L1-L4) 1.494 gm/cm2, T-score: +2.6 Prior: 1.421 gm/cm2, +5.1% change Left femoral neck 1.109 gm/cm2, T-score: +0.5 Prior: 1.164 gm/cm2, -4.7% change Right femoral neck 1.116 gm/cm2, T-score: +0.6 Prior: 1.196 gm/cm2, -6.7% change Comments: None. Detailed report placed in Imaging Section of [facility] EMR. IMPRESSION Normal BMD. Lumbar Spine T-score: +2.6 Left femoral neck T-score: +0.5 Right femoral neck T-score: +0.6 Statistical change: Significant increase in bone mineral density of the lumbar spine since the prior study. Significant decrease in bone mineral density of the bilateral femoral necks since the prior study. DEFINITIONS: Normal: T-score above -1.0 Osteopenia T-score less than -1.0 and above -2.5 Osteoporosis: T-score < -2.5 FOLLOW-UP RECOMMENDATIONS: Patients without high risk factors for osteoporosis: T-score -1.0 to -1.5 - Consider repeat BMD in 5-10 years T-score -1.5 to -2.0 - Consider repeat BMD in 3-5 years T-score -2.0 to - 2.5 - Consider repeat BMD every 2 years Patients on treatment for osteoporosis: 1-2 years after initiation of treatment and every 2 years [address] Jose Eduardo Dill DO Procedure Note Jose Eduardo Dill DO - 06/11/2015 XR DEXA BONE DENSITY AXIAL 1 OR MORE SITES Dictated from Location 1 ([facility]) HISTORY 65 year-old F with post menopausal symptoms. PROCEDURE: Planar images of the lumbar spine and hip(s) using a [employer] DEXA scanner for bone mineral density determination (BMD). Compared to the prior bone density performed 07/16/2008 FINDINGS: Lumbar Spine (L1-L4) 1.494 gm/cm2, T-score: +2.6 Prior: 1.421 gm/cm2, +5.1% change Left femoral neck 1.109 gm/cm2, T-score: +0.5 Prior: 1.164 gm/cm2, -4.7% change Right femoral neck 1.116 gm/cm2, T-score: +0.6 Prior: 1.196 gm/cm2, -6.7% change Comments: None. Detailed report placed in Imaging Section of [facility] EMR. IMPRESSION Normal BMD. Lumbar Spine T-score: +2.6 Left femoral neck T-score: +0.5 Right femoral neck T-score: +0.6 Statistical change: Significant increase in bone mineral density of the lumbar spine since the prior study. Significant decrease in bone mineral density of the bilateral femoral necks since the prior study. DEFINITIONS: Normal: T-score above -1.0 Osteopenia T-score less than -1.0 and above -2.5 Osteoporosis: T-score < -2.5 FOLLOW-UP RECOMMENDATIONS: Patients without high risk factors for osteoporosis: T-score -1.0 to -1.5 - Consider repeat BMD in 5-10 years T-score -1.5 to -2.0 - Consider repeat BMD in 3-5 years T-score -2.0 to - 2.5 - Consider repeat BMD every 2 years Patients on treatment for osteoporosis: 1-2 years after initiation of treatment and every 2 [address] Jose Eduardo Dill, DO Jonel Vásquez MD DIAGNOSTIC IMAGING ORDERABLES Fi nal Result from Last 3 Months or Most Recently Relevant to Health Maintenance Insurance MEDICARE PART A AND B [employer] MEDICARE SUPPLEMENT Advance Directives For more information, please contact: [phone] Documents on File Type Date Recorded Patient Hand Collator Expl anation Advance Directive POA 12/31/2009 5:41 AM A dvance Directive POA Advance Directive Living Will 12/31/2009 * Full Code (Latest Code Status on File) Date Activated Date Inactivated Comments 05/30/2019 12:18 PM 05/30/2019 4:09 PM * Full Code Date Activated Date Inactivated Comments 04/01/2016 10:03 AM 04/02/2016 2:04 AM * Full Code Date Activated Date Inactivated Comments 12/31/2009 12:46 PM 01/01/2010 1:35 PM * Full Code Date Activated Date Inactivated Comments 12/31/2009 7:58 AM 12/31/2009 12:46 PM * Full Code Date Activated Date Inactivated Comments 12/31/2009 5:33 AM 12/31/2009 7:58 AM
--- OUTSIDE RECORDS SUMMARY | 2024-10-09 09:24 | XMS_ITS | Encounter Summary ---
Author Organization [employer] Address [address] [place] [address] Care Team Providers Care Academic Coordinator Name Role Phone Michael Smith MD Primary Care Provider [phone] Encounter Details Date Type Department Care Team (Late st Contact Info) Description 11/17/2004 Outpatient Historical [facility] [address] [place] [id number] Jerman Burrell MD [address] [facility] [address] [place], [place] [id number] Social History Tobacco Use Types Packs/Day Years Used Date Smoking Tobacco: Never Assessed Comments Unknown Sex and Gender Information Value Date Recorded Sex Assigned at Not on file Legal Sex Female 4:52 AM FINISH REMOVER Gender Identity Not on file Sexual Orientation Not on file documented as of this encounter Plan of Treatment Not on file documented as of this encounter Visit Diagnoses Not on filedocumented in this encounter Additional Health Concerns Infection Onset Date Last Indicated Resolved Time R/O COVID-19 05/17/2020 05/20/2020 05/20/2020 3:21 PM FINISH REMOVER documented as of this encounter Care Teams Academic Coordinator Relationship Specialty Start Date End Date Michael Smith MD [address] [place] [phone] PCP - General 04/28/01 10/23/20 documented as of this encounter
--- OUTSIDE RECORDS SUMMARY | 2024-10-09 09:24 | XMS_ITS | Encounter Summary ---
Author Organization [facility] Address [address] [place] [address] Care Team Providers Care Bender Machine Operator Name Role Phone Michael Smith MD Primary Care Provider [phone] Encounter Details Date Type Department Care Team (Latest Contact Info) Description 11/17/2004 Outpatient Historical [facility] Michael Smith MD [address] [place] [phone] CARDIOMEGALY (Primary Dx) Social History Tobacco Use Types Packs/Day Years Used Date Smoking Tobacco: Never Assessed Comments Unknown Sex and Gender Information Value Date Recorded Sex Assigned at Not on file Legal Sex Female 4:52 AM SUPERVISOR WHITE SUGAR Gender Identity Not on file Sexual Orientation Not on file documented as of this encounter Plan of Treatment Not on file documented as of this encounter Visit Diagnoses Diagnosis Cardiomegaly- Primary documented in this encounter Additional Health Concerns Infection Onset Date Last Indicated Resolved Time R/O COVID-19 05/17/2020 05/20/2020 05/20/2020 3:21 PM SUPERVISOR WHITE SUGAR documented as of this encounter Care Teams Bender Machine Operator Relationship Specialty Start Date End Date Michael Smith MD [address] [place] [address] PCP - General 04/28/01 10/23/20 documented as of this encounter
--- OUTSIDE RECORDS SUMMARY | 2024-10-09 09:24 | XMS_ITS | Encounter Summary ---
Author Organization [facility] Address [address] [place] [address] Care Team Providers Care Inspector And Unloader Name Role Phone Michael Smith MD Primary Care Provider Encounter Details Date Type Department Care Team (Late st Contact Info) Description 10/05/2007 Outpatient Historical [facility] Internal Medicine [address] [place] [address] Michael Smith MD [address] [place] [address] Social History Tobacco Use Types Packs/Day Years Used Date Smoking Tobacco: Never Assessed Comments Unknown Sex and Gender Information Value Date Recorded Sex Assigned at Not on file Legal Sex Female 4:52 AM SEMICONDUCTOR WAFERS MARKER Gender Identity Not on file Sexual Orientation Not on file documented as of this encounter Plan of Treatment Not on file documented as of this encounter Visit Diagnoses Not on filedocumented in this encounter Additional Health Concerns Infection Onset Date Last Indicated Resolved Time R/O COVID-19 05/17/2020 05/20/2020 05/20/2020 3:21 PM SEMICONDUCTOR WAFERS MARKER documented as of this encounter Care Teams Inspector And Unloader Relationship Specialty Start Date End Date Michael Smith MD [address] [place] [address] PCP - General 04/28/01 10/23/20 documented as of this encounter
--- OUTSIDE RECORDS SUMMARY | 2024-10-09 09:24 | XMS_ITS | Encounter Summary ---
Author Organization [facility] Address [address] [place] [address] Care Team Providers Care Boatswain'S Mate Name Role Phone Michael Smith MD Primary Care Provider [phone] Encounter Details Date Type Department Care Team (Late st Contact Info) Description 03/08/2006 Outpatient Historical [facility] Internal Medicine [address] [place] [address] Michael Smith MD [address] [place] [address] Social History Tobacco Use Types Packs/Day Years Used Date Smoking Tobacco: Never Assessed Comments Unknown Sex and Gender Information Value Date Recorded Sex Assigned at Not on file Legal Sex Female 4:52 AM PAD CUTTER Gender Identity Not on file Sexual Orientation Not on file documented as of this encounter Plan of Treatment Not on file documented as of this encounter Visit Diagnoses Not on filedocumented in this encounter Additional Health Concerns Infection Onset Date Last Indicated Resolved Time R/O COVID-19 05/17/2020 05/20/2020 05/20/2020 3:21 PM PAD CUTTER documented as of this encounter Care Teams Boatswain'S Mate Relationship Specialty Start Date End Date Michael Smith MD [address] [place] [address] PCP - General 04/28/01 10/23/20 documented as of this encounter
--- OUTSIDE RECORDS SUMMARY | 2024-10-09 09:24 | XMS_ITS | Encounter Summary ---
Author Organization [employer] Address [address] [place] [address] Care Team Providers Care Sifter And Miller Name Role Phone Michael Smith MD Primary Care Provider [phone] Encounter Details Date Type Department Care Team (Late st Contact Info) Description 08/18/2007 Outpatient Historical [facility] Michale Smith MD [address] [place] [phone] Edema Social History Tobacco Use Types Packs/Day Years Used Date Smoking Tobacco: Never Assessed Comments Unknown Sex and Gender Information Value Date Recorded Sex Assigned at Not on file Legal Sex Female 4:52 AM PAEDODONTIST Gender Identity Not on file Sexual Orientation Not on file documented as of this encounter Plan of Treatment Not on file documented as of this encounter Visit Diagnoses Diagnosis Edema documented in this encounter Additional Health Concerns Infection Onset Date Last Indicated Resolved Time R/O COVID-19 05/17/2020 05/20/2020 05/20/2020 3:21 PM PAEDODONTIST documented as of this encounter Care Teams Sifter And Miller Relationship Specialty Start Date End Date Michael Smith MD [address] [place] [address] PCP - General 04/28/01 10/23/20 documented as of this encounter
--- OUTSIDE RECORDS SUMMARY | 2024-10-09 09:24 | XMS_ITS | Encounter Summary ---
Author Organization [facility] Address [address] [place] [address] Care Team Providers Care Butcher Name Role Phone Perry Smith MD Primary Care Provider [phone] Encounter Details Date Type Department Care Team (Late st Contact Info) Description 09/12/2007 Outpatient Historical [facility] Perry Smith MD [address] [facility] [address] [place] [address] Headache Social History Tobacco Use Types Packs/Day Years Used Date Smoking Tobacco: Never Assessed Comments Unknown Sex and Gender Information Value Date Recorded Sex Assigned at Not on file Legal Sex Female 4:52 AM INFRASTRUCTURE DIRECTOR Gender Identity Not on file Sexual Orientation Not on file documented as of this encounter Plan of Treatment Not on file documented as of this encounter Procedures Procedure Name Priority Date/Time Associated Diagnosis Comments MRA HEAD WO CONTRAST Routine 09/12/2007 3:26 PM CDT documented in this encounter Results * MRA HEAD WO CONTRAST (09/12/2007 3:26 PM CDT) Anatomical Region Laterality Modality Head Other 09/12/2007 3:26 PM CDT Narrative 09/13/2007 8:26 AM CDT [facility] [address], [place] [address] Admit Date: 09/12/2007 ARABELLA MENDEZ Sex: F Admit Prov: PERRY SMITH Date: 1950 Primary Care Prov: PERRY SMITH CMRN: [id number] [id number] Ordering Prov: N/A Accession Number: [id number] Interpretation MRI ANGIO HEAD WITHOUT CONTRAST 09/12/2007 Indication: Five family members with brain aneurysms. Technique: [id number] MRA sequence was performed as well as sagittal T1 sequence. Findings: There is some mild irregularity noted within both internal carotid arteries as they enter the skull base, more significant on the left. This is more likely due to technical factors and artifact rather than true irregularity and narrowing. Distally the intracranial carotid arteries have normal flow signal intensities. Both the anterior and middle cerebral arteries have normal flow signal. The anterior communicating artery is seen. The vertebral arteries are codominant. The basilar artery is slightly small, as are the P1 segments. Prominent posterior communicating arteries are present, likely accounting for this appearance. No evidence of aneurysm or vascular malformation is identified. Impression: 1. No evidence of aneurysm. 2. Irregularity within the carotids at the skull base, more likely due to technical artifact than true luminal irregularity. . Dictated by: NATHAN MCGEE 09/12/2007 16:39 Electronically signed by: NATHAN MCGEE 09/13/2007 08:26 Transcribed: 09/12/2007 18:52 [facility] Procedure Note Nathan Mcgee - 09/13/[address] [address] Admit Date: 09/12/2007 ARABELLA MENDEZ Sex: F Admit Prov: PERRY SMITH Date: 1950 Primary Care Prov: PERRY SMITH CMRN: [id number] Room: [facility] SSN: [id number] IMAGING SERVICES Ordering Prov: N/A Interpretation MRI ANGIO HEAD WITHOUT CONTRAST 09/12/2007 Indication: Five family members with brain aneurysms. Technique: [id number] MRA sequence was performed as well assagittal T1 sequence. Findings: There is some mild irregularity noted within bothinternal carotid arteries as they enter the skull base, more significant onthe left. This is more likely due to technical factors and artifactrather than true irregularity and narrowing. Distally the intracranial carotidarteries have normal flow signal intensities. Both the anterior and middlecerebral arteries have normal flow signal. The anterior communicating arteryis seen. The vertebral arteries are codominant. The basilar artery isslightly small, as are the P1 segments. Prominent posterior communicatingarteries are present, likely accounting for this appearance. No evidence ofaneurysm or vascular malformation is identified. Impression: 1. No evidence of aneurysm. 2. Irregularity within the carotids at the skull base, more likelydue to technical artifact than true luminal irregularity. . Dictated by: NATHAN MCGEE 09/12/2007 16:39 Electronically signed by: NATHAN MCGEE 09/13/2007 08:26 Transcribed: 09/12/2007 18:52 [facility] us Perry Smith MD MR ORDERABLES Final Result documented in this encounter Visit Diagnoses Diagnosis Headache(784.0) Headache documented in this encounter Additional Health Concerns Infection Onset Date Last Indicated Resolved Time R/O COVID-19 05/17/2020 05/20/2020 05/20/2020 3:21 PM INFRASTRUCTURE DIRECTOR documented as of this encounter Care Teams Butcher Relationship Specialty Start Date End Date Perry Smith MD [address] [facility] [address] [place] [phone] PCP - General 04/28/01 10/23/20 documented as of this encounter
--- OUTSIDE RECORDS SUMMARY | 2024-10-09 09:24 | XMS_ITS | Encounter Summary ---
Author Organization [facility] Address [address] [place] [address] Care Team Providers Care Senior Business Consultant Name Role Phone Michael Smith MD Primary Care Provider [phone] Encounter Details Date Type Department Care Team (Late st Contact Info) Description 03/08/2006 Orders Only [facility] Internal Medicine [address] [place] [address] Michael Smith MD [address] [facility] [address] [place] [address] Social History Tobacco Use Types Packs/Day Years Used Date Smoking Tobacco: Never Assessed Comments Unknown Sex and Gender Information Value Date Recorded Sex Assigned at Not on file Legal Sex Female 4:52 AM DISTRIBUTION CENTER ADMINISTRATOR Gender Identity Not on file Sexual Orientation Not on file documented as of this encounter Progress Notes * Michael Smith MD - 02/21/2008 10:20 PM CDT WEIGHT: 184lbs BLOOD PRESSURE: 160/80 Right Arm Sitting PULSE: 70 Right Radial, Regular HEIGHT: 67 3/4in NURSE NAME: Sugey Ortega CHIEF COMPLAINT Here for follow up evaluation. HISTORY: HISTORY: 401.1-HYPERTENSION ESSENTIAL BENIGN The patient is compliant with diet. The patient`s weight is thesame. The patient`s exercise is the same. The patient denies chest pain, shortness of breath, dyspnea on exertion, pedal edema, or headache. The patient is tolerating the medication. 281.1-B12 DEFICIENT ANEMIA She is self administering the injections monthly. 244.9-HYPOTHYROIDISM The hypothyroidism is stable. No complications noted from the medication presently being used. The patient denies any symptoms of hypothyroidism such as dry skin, hoarseness, loss of energy, cold intolerance, or weight gain. HISTORY OF PRESENT ILLNESS: She injured right thumb swimming and has had some pain for a week. She notes a small area of discoloration and thinks she may have bruised it. CURRENT MEDICATION LIST: OXYHICGOOU-LHUG-[id number] ORAL TABLET 50-325-40 MG, Take one tablet by mouth every 4 hours as neededfor headache AMILORIDE HCL ORAL TABLET 5 MG, 1 Every Day LEVOXYL ORAL TABLET 125 MCG, 1 Every Day ESTRACE ORAL TABLET 2 MG, 1 Every Day VITAMINS B1 B6 B12 INJECTION INJECTION, One cc monthly CURRENT ALLERGY LIST: DYAZIDE SULFA DRUGS ROS: GENERAL: Normal activity and energy level, no change in appetite. No major weight gain or loss. No malaise, chills, fever, diaphoresis.. EYES: No vision changes or diplopia. ENT: No hearing loss, epistaxis, hoarseness or dysphagia. No sinus congestion.. ENDOCRINE: No heat or cold intolerance, no excessive thirst.. CARDIAC: No chest pain, palpitations, orthopnea, dyspnea on exertion, or paroxysmal nocturnal dyspnea.. RESPIRATORY: No dyspnea, cough, hemoptysis or wheezing.. SKIN/BREAST/CHEST: No rashes or non-healing lesions. No breast symptoms noted. HEMATOLOGIC/LYMPHATIC: See HISTORY OF PRESENT ILLNESS. : No frequency, urgency, hematuria or dysuria.. GI: No abdominal pain, nausea, vomiting, diarrhea, constipation, melena, or hematochezia.. NEUROLOGIC: No weakness, dizziness, loss of consciousness, transient ischemic symptoms, or seizures. MUSCULOSKELETAL: See HISTORY OF PRESENT ILLNESS. PAST MEDICAL HISTORY: MEDICAL: Hypertension, migraine headaches.Polyglandular syndrome-hypothyroid, alopecia, pernicious anemia., +PPD S/P treatment, tubular adenoma on past two colonoscopies, last one 11/18/2004 SURGICAL: Complete thyroidectomy, abdominal hysterectomy with bilateral salpingo-oophorectomy, tonsils and adenoids. FAMILY HISTORY: FATHER: Illnesses: Ischemic heart disease. MOTHER: Illnesses: Adult onset diabetes, hypertension. SIBLINGS: 1) The patient's sister is . Cerebral aneurysm, RA SOCIAL HISTORY: MARITAL HISTORY: Single. TOBACCO USE: Has no significant smoking history. ALCOHOL: Does not give any significant history of alcohol usage. CAFFEINE: A minimal amount of caffeinated beverages daily. EXERCISES: The patient exercises. The exercise is predominantly golfing, walking. PHYSICAL EXAMINATION: CONSTITUTIONAL: GENERAL APPEARANCE: -[place] female, in no acute distress. EYES: PUPILS: Pupils equal and normally reactive to light and accommodation. FUNDUSCOPIC EXAM: Ophthalmoscopic examination shows the fundi to be normal. The optic disc are flatand of normal size. There are no hemorrhages or exudates. EARS, NOSE, MOUTH AND THROAT: EARS: Tympanic membranes shiny without retraction. Canals unremarkable. Hearing grossly normal. ORAL: Inspection of gums, lips, palate, and teeth normal. No scars, lesions, or masses. Oral mucosaunremarkable with non-inflamed posterior pharynx. NECK/THYROID: No thyroid palpable. Scar barely visible. RESPIRATORY: Clear to auscultation and percussion. Normal respiratory effort. CARDIOVASCULAR: CARDIAC: Rhythm regular, GRADE II/ HOLOSYSTOLIC MURMUR. ARTERIAL: Aortic pulses of normal amplitude with no bruits. JUGULAR VEINS Jugular veins within normal limits. EDEMA/VARICOSITIES OF EXTREMITIES: No edema. BREAST/CHEST: EXAM DONE BY PATIENT'S POLITICAL CARTOONIST. LYMPHATICS: No lymphadenopathy in the neck, axillae, or groin. GASTROINTESTINAL: ABDOMEN: Soft, non-tender, without masses. Bowel sounds active. LIVER/SPLEEN/KIDNEY: No hepatosplenomegaly, tenderness or nodularity. Kidneys not palpable. GENITOURINARY: EXTERNAL/VAGINAL: GENITAL EXAMINATION NOT DONE, PATIENT'S EXAM PERFORMED BY HER POLITICAL CARTOONIST. MUSCULOSKELETAL EXAM: GAIT/STATION: Normal gait. EXTREMITIES: LEFT UPPER: Normal strength and tone. RIGHT UPPER: Normal strength and tone. There is a less than one cm spot of discoloration on the thumb over the proximal phalanx. No loss of strength or ROM BILATERAL LOWER EXTREMITIES: Normal strength and tone. SKIN: SKIN: Warm, dry, no diaphoresis, no significant lesions, irritation, rashes or ulcers. No induration, obvious subcutaneous nodules or tightening. Wears wig NEUROLOGIC: CRANIAL NERVES: coloring room worker II-XII grossly intact. SENSATION: Normal vibration sensation in lower extremities. OFFICE PROCEDURES: EKG INTERPRETATION EKG RHYTHM: The EKG shows normal sinus rhythm. RATE: 61 EKG AXIS: The EKG shows normal axis. CONDUCTION: The EKG shows no conduction defect. ARRHYTHMIA: The EKG shows no arrhythmia. No ischemic changes noted. INJECTIONS & IMMUNIZATIONS: . TDAP, 0.5, MILLILITERS, INTRAMUSCULAR INJECTION, Upper Left Arm, given by va on 03/08/2006; consent form signed, literature given; ASSESSMENT/PLAN: 281.1-B12 DEFICIENT ANEMIA ASSESSMENT: Check levels to assess adequacy of supplementation. To continue 1000mcg per month. LAB ORDERS: Order number: [id number] Test Ordered: CBC (INCLUDES DIFF/PLT) 6399 Order number: [id number] Test Ordered: VITAMIN B12 927 401.1-HYPERTENSION ESSENTIAL BENIGN ASSESSMENT: The blood pressure remains satisfactory. Will not change medication, continue to monitor for complications. Will check laboratory to assess disease effect, to assess medication effect. LAB ORDERS: Order number: [id number] Test Ordered: COMPREHENSIVE METABOLIC PANEL 54806 Order number: [id number] Test Ordered: LIPID PANEL 7600 Order number: [id number] Test Ordered: URINALYSIS, COMPLETE 5463 244.9-HYPOTHYROIDISM ASSESSMENT: The patient appears stable. Will follow for signs of hypothyroidism. Will not change medication, continue to monitor for complications. Will check laboratory for possible medication adjustment. 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 ECHO done last year. She has no symptoms and has good valve action. She is to take antibiotic prophylaxis. I think an echo next year will be adequate. LAB ORDERS: Order number: [id number] Test Ordered: EKG WITH INTERPRETATION AND REPORT 11284 719.44-OTHER AND UNSPECIFIED DISORDERS OF JOINT ASSESSMENT: Suspect contusion of the thumb. This should heal with no difficulty. If failing to improve with rest over two weeks she will call. V06.1-NEED FOR VACCINE [id number] LAB ORDERS: Order number: [id number] Test Ordered: INJ-TDAP 11 YRS OR OLDER 87819 211.3-COLON POLYP(S) ASSESSMENT: She is aware of having precancerous polyps on the past two colonoscopies. She is due for a repeat in November of 2006 or in the six months after. REPEAT VITAL SIGNS: BLOOD PRESSURE: 128/82. Right Arm Sitting Electronically Signed by: Michael Smith MD on Wednesday, March 08, 2006 documented in this encounter Plan of Treatment Not on file documented as of this encounter Visit Diagnoses Not on filedocumented in this encounter Additional Health Concerns Infection Onset Date Last Indicated Resolved Time R/O COVID-19 05/17/2020 05/20/2020 05/20/2020 3:21 PM DISTRIBUTION CENTER ADMINISTRATOR documented as of this encounter Care Teams Senior Business Consultant Relationship Specialty Start Date End Date Michael Smith MD [address] [facility] [address] [place] [address] PCP - General 04/28/01 10/23/20 documented as of this encounter
--- OUTSIDE RECORDS SUMMARY | 2024-10-09 09:24 | XMS_ITS | Encounter Summary ---
Author Organization [facility] Address [address] [place] [address] Care Team Providers Care Unit Tender Name Role Phone Michael Smith MD Primary Care Provider Encounter Details Date Type Department Care Team (Late st Contact Info) Description 10/06/2007 Outpatient Historical [facility] Internal Medicine [address] [place] [address] Michael Smith MD [address] [facility] [address] [place] [address] Social History Tobacco Use Types Packs/Day Years Used Date Smoking Tobacco: Never Assessed Comments Unknown Sex and Gender Information Value Date Recorded Sex Assigned at Not on file Legal Sex Female 4:52 AM LOTTERY CLERK Gender Identity Not on file Sexual Orientation Not on file documented as of this encounter Last Filed Vital Signs Vital Sign Reading Time Taken Comments Blood Pressure 114/62 10/06/2007 11:30 AM CDT Pulse - - Temperature 37.2 C (99 F) 10/06/2007 11:30 AM CDT Respiratory Rate - - Oxygen Saturation - - Inhaled Oxygen Concentration - - Weight 85 kg (187 lb 8 oz) 10/06/2007 11:30 AM C DT Height - - Body Mass Index - - documented in this encounter Plan of Treatment Not on file documented as of this encounter Visit Diagnoses Not on filedocumented in this encounter Additional Health Concerns Infection Onset Date Last Indicated Resolved Time R/O COVID-19 05/17/2020 05/20/2020 05/20/2020 3:21 PM LOTTERY CLERK documented as of this encounter Care Teams Unit Tender Relationship Specialty Start Date End Date Michael Smith MD [address] [facility] [address] [place] [address] PCP - General 04/28/01 10/23/20 documented as of this encounter
--- OUTSIDE RECORDS SUMMARY | 2024-10-09 09:24 | XMS_ITS | Encounter Summary ---
Author Organization [facility] Address [address] [place] [address] Care Team Providers Care Cargoman Name Role Phone Michael Smith MD Primary Care Provider [phone] Encounter Details Date Type Department Care Team (Late st Contact Info) Description 08/18/2007 Outpatient Historical [facility] Internal Medicine [address] [place] [address] Michael Smith MD [address] [place] [address] Social History Tobacco Use Types Packs/Day Years Used Date Smoking Tobacco: Never Assessed Comments Unknown Sex and Gender Information Value Date Recorded Sex Assigned at Not on file Legal Sex Female 4:52 AM BSS SOLUTION ARCHITECT Gender Identity Not on file Sexual Orientation Not on file documented as of this encounter Plan of Treatment Not on file documented as of this encounter Visit Diagnoses Not on filedocumented in this encounter Additional Health Concerns Infection Onset Date Last Indicated Resolved Time R/O COVID-19 05/17/2020 05/20/2020 05/20/2020 3:21 PM BSS SOLUTION ARCHITECT documented as of this encounter Care Teams Cargoman Relationship Specialty Start Date End Date Michael Smith MD [address] [place] [address] PCP - General 04/28/01 10/23/20 documented as of this encounter
--- OUTSIDE RECORDS SUMMARY | 2024-10-09 09:24 | XMS_ITS | Encounter Summary ---
Author Organization [facility] Address [address] [place] [address] Care Team Providers Care Electrical And Instrumentation Mechanic Name Role Phone Michael Smith MD Primary Care Provider [phone] Encounter Details Date Type Department Care Team (Late st Contact Info) Description 10/22/2003 Outpatient Historical [facility] Internal Medicine [address] [place] [address] Michael Smith MD [address] [place] [address] Social History Tobacco Use Types Packs/Day Years Used Date Smoking Tobacco: Never Assessed Comments Unknown Sex and Gender Information Value Date Recorded Sex Assigned at Not on file Legal Sex Female 4:52 AM GULLET SLITTER Gender Identity Not on file Sexual Orientation Not on file documented as of this encounter Plan of Treatment Not on file documented as of this encounter Visit Diagnoses Not on filedocumented in this encounter Additional Health Concerns Infection Onset Date Last Indicated Resolved Time R/O COVID-19 05/17/2020 05/20/2020 05/20/2020 3:21 PM GULLET SLITTER documented as of this encounter Care Teams Electrical And Instrumentation Mechanic Relationship Specialty Start Date End Date Michael Smith MD [address] [place] [address] PCP - General 04/28/01 10/23/20 documented as of this encounter
--- OUTSIDE RECORDS SUMMARY | 2024-10-09 09:24 | XMS_ITS | Encounter Summary ---
Author Organization [employer] [facility] Address [address] [place] [address] Care Team Providers Care Jointer Submarine Cable Name Role Phone Michael Smith MD Primary Care Provider [phone] Encounter Details Date Type Department Care Team (Latest Contact Info) Description 11/02/2006 Outpatient Historical [facility] Jonel Vásquez MD [address] [facility] [address] [place] [address] Other Screening Mammogram (Primary Dx) Social History Tobacco Use Types Packs/Day Years Used Date Smoking Tobacco: Never Assessed Comments Unknown Sex and Gender Information Value Date Recorded Sex Assigned at Not on file Legal Sex Female 4:52 AM SHOT TUBE MACHINE TENDER Gender Identity Not on file Sexual Orientation Not on file documented as of this encounter Plan of Treatment Not on file documented as of this encounter Visit Diagnoses Diagnosis Other screening mammogram- Primary documented in this encounter Additional Health Concerns Infection Onset Date Last Indicated Resolved Time R/O COVID-19 05/17/2020 05/20/2020 05/20/2020 3:21 PM SHOT TUBE MACHINE TENDER documented as of this encounter Care Teams Jointer Submarine Cable Relationship Specialty Start Date End Date Michael Smith MD [address] [facility] [address] [place] [address] PCP - General 04/28/01 10/23/20 documented as of this encounter
--- OUTSIDE RECORDS SUMMARY | 2024-10-09 09:24 | XMS_ITS | Encounter Summary ---
Author Organization [employer] [facility] Address [address] [place] [address] Care Team Providers Care Is Technician Name Role Phone Michael Smith MD Primary Care Provider [phone] Encounter Details Date Type Department Care Team (Late st Contact Info) Description 03/12/2006 Orders Only [facility] Internal Medicine [address] [place] [address] Michael Smith MD [address] [facility] [address] [place] [address] Social History Tobacco Use Types Packs/Day Years Used Date Smoking Tobacco: Never Assessed Comments Unknown Sex and Gender Information Value Date Recorded Sex Assigned at Not on file Legal Sex Female 4:52 AM OBIEE ARCHITECT Gender Identity Not on file Sexual Orientation Not on file documented as of this encounter Progress Notes * Michael Smith MD - 02/21/2008 10:41 PM CDT NURSE NAME: Sugey Ortega * Michael Smith MD - 02/21/2008 10:41 PM CDT TIME:11:30 am PATIENT`S HOME PHONE: PATIENT`S WORK PHONE: PATIENT`S INSURANCE: [email or web address] PPO WHO TOOK THE CALL: Sugey Ortega GENERAL INFORMATION PATIENT STATUS: Established Patient. LAST VISIT: 03/08/2006 PCP: . WHO CALLED: OTHER:.JAYRO with lab rsults CURRENT ALLERGY LIST: DYAZIDE SULFA DRUGS PHARMACY NUMBER: [id number] SECTION 1: REQUESTED ACTION 03/12/06 at 11:31 am: MEDICATION REQUEST: MEDICATIONS: LEVOXYL ORAL TABLET 125 MCG TABLETS, 1 Every Day, 30 Dispensed, 6 Fills, 30 Duration/Days Supply, status: DISCONTINUED, 03/12/2006, Comment: faxed to [facility] @ [phone] on 11/12/05/rll. LEVOXYL ORAL TABLET 112 MCG, Take one tab po every day, 30 Dispensed, 5 Fills, status: NEW PRESCRIPTION, 03/12/2006. 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 LAB ORDERS: Order number: [id number] Test Ordered: TSH 899 SECTION 3: RN/PROCESS DEVELOPMENT MANAGER RESPONSE: 03/12/06 at 11:37 am Call to patient regarding lab results:which show cholesterol 225,jrc060,hdl 68 ok.Glucose is normal,kidney and liver normal,no anemia.Thyroid dose is too high per JWK wants to change Levoxyl dosage.Patient instructed to check tsh in 3 months and do b12 injections every 2 weeks.Pt aware and wants to know for her height is her weight ok?//mp She is not overweight/jwk Called patient and is aware and offered no questions.//mp Electronically Signed by: Sugey Ortega on Sunday, March 12, 2006 documented in this encounter Plan of Treatment Not on file documented as of this encounter Visit Diagnoses Not on filedocumented in this encounter Additional Health Concerns Infection Onset Date Last Indicated Resolved Time R/O COVID-19 05/17/2020 05/20/2020 05/20/2020 3:21 PM OBIEE ARCHITECT documented as of this encounter Care Teams Is Technician Relationship Specialty Start Date End Date Michael Smith MD [address] [facility] [address] [place] [address] PCP - General 04/28/01 10/23/20 documented as of this encounter
--- OUTSIDE RECORDS SUMMARY | 2024-10-09 09:24 | XMS_ITS | Encounter Summary ---
Author Organization [employer] [facility] Address [address] [place] [address] Care Team Providers Care Computerized Machine Fabric Cutter Name Role Phone Michael Smith MD Primary Care Provider Encounter Details Date Type Department Care Team (Latest Contact Info) Description 09/29/2005 Outpatient Historical [facility] Jonel Vásquez MD [address] [facility] [address] [place] [address] Other Screening Mammogram (Primary Dx) Social History Tobacco Use Types Packs/Day Years Used Date Smoking Tobacco: Never Assessed Comments Unknown Sex and Gender Information Value Date Recorded Sex Assigned at Not on file Legal Sex Female 4:52 AM EMU FARMER Gender Identity Not on file Sexual Orientation Not on file documented as of this encounter Plan of Treatment Not on file documented as of this encounter Visit Diagnoses Diagnosis Other screening mammogram- Primary documented in this encounter Additional Health Concerns Infection Onset Date Last Indicated Resolved Time R/O COVID-19 05/17/2020 05/20/2020 05/20/2020 3:21 PM EMU FARMER documented as of this encounter Care Teams Computerized Machine Fabric Cutter Relationship Specialty Start Date End Date Michael Smith MD [address] [facility] [address] [place] [address] PCP - General 04/28/01 10/23/20 documented as of this encounter
--- OUTSIDE RECORDS SUMMARY | 2024-10-09 09:24 | XMS_ITS | Encounter Summary ---
Author Organization [facility] Address [address] [place] [address] Care Team Providers Care Speeder Hand Name Role Phone Roxanne Werner MD Unavailable Ata Bronson DPM Unavailable Jeannie Graham MD Primary Care Provider Encounter Details Date Type Department Care Team (Late st Contact Info) Description 09/11/2024 Results Follow-Up [place] Gear Mechanic [address] [address] Roxanne Werner MD [address] [place] [address] [employer] Social History Tobacco Use Types Packs/Day Years [...] on file Legal Sex Female 2:53 PM SKILLED NURSING FACILITIES PROFESSIONAL Gender Identity Female 08/19/2020 7:43 PM CDT Sexual Orientation Straight 09/24/2020 8: 49 AM CDT 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
--- OUTSIDE RECORDS SUMMARY | 2024-10-09 09:24 | XMS_ITS | Encounter Summary ---
Author Organization [employer] [facility] Address [address] [place] [address] Care Team Providers Care Mold Mover Name Role Phone Michael Smith MD Primary Care Provider [phone] Encounter Details Date Type Department Care Team (Latest Contact Info) Description 09/17/2003 Outpatient Historical [facility] Michael Smith MD [address] [place] [address] OTHER OVARIAN FAILURE (Primary Dx) Social History Tobacco Use Types Packs/Day Years Used Date Smoking Tobacco: Never Assessed Comments Unknown Sex and Gender Information Value Date Recorded Sex Assigned at Not on file Legal Sex Female 4:52 AM REGISTERED REPRESENTATIVE Gender Identity Not on file Sexual Orientation Not on file documented as of this encounter Plan of Treatment Not on file documented as of this encounter Visit Diagnoses Diagnosis Other ovarian failure(256.39)- Primary Other ovarian failure documented in this encounter Additional Health Concerns Infection Onset Date Last Indicated Resolved Time R/O COVID-19 05/17/2020 05/20/2020 05/20/2020 3:21 PM REGISTERED REPRESENTATIVE documented as of this encounter Care Teams Mold Mover Relationship Specialty Start Date End Date Michael Smith MD [address] [place] [address] PCP - General 04/28/01 10/23/20 documented as of this encounter
--- OUTSIDE RECORDS SUMMARY | 2024-10-09 09:24 | XMS_ITS | Encounter Summary ---
Author Organization [facility] Address [address] [place] [address] Care Team Providers Care Adding Machine Mechanic Name Role Phone Michael Smith MD Primary Care Provider [phone] Encounter Details Date Type Department Care Team (Latest Contact Info) Description 09/21/2001 Outpatient Historical [facility] Jonel Mulligan MD [address] [facility] [address] [place] [address] FOLLOW-UP EXAM NEC (Primary Dx) Social History Tobacco Use Types Packs/Day Years Used Date Smoking Tobacco: Never Assessed Comments Unknown Sex and Gender Information Value Date Recorded Sex Assigned at Not on file Legal Sex Female 4:52 AM COSTING ANALYST Gender Identity Not on file Sexual Orientation Not on file documented as of this encounter Plan of Treatment Not on file documented as of this encounter Visit Diagnoses Diagnosis Other follow-up examination(V67.59)- Primary Other follow-up examination documented in this encounter Additional Health Concerns Infection Onset Date Last Indicated Resolved Time R/O COVID-19 05/17/2020 05/20/2020 05/20/2020 3:21 PM COSTING ANALYST documented as of this encounter Care Teams Adding Machine Mechanic Relationship Specialty Start Date End Date Michael Smith MD [address] [place] [address] PCP - General 04/28/01 10/23/20 documented as of this encounter
--- OUTSIDE RECORDS SUMMARY | 2024-10-09 09:24 | XMS_ITS | Encounter Summary ---
Author Organization [facility] Address [address] [place] [address] Care Team Providers Care Legal Records Clerk Name Role Phone Michael Smith MD Primary Care Provider [phone] Encounter Details Date Type Department Care Team (Late st Contact Info) Description 03/17/2004 Outpatient Historical [facility] Support Serv. (Adt Cardiology-SJ) [address] [place] [address] Anahi Chaves MD [address] [address] [address] [place] [address] Social History Tobacco Use Types Packs/Day Years Used Date Smoking Tobacco: Never Assessed Comments Unknown Sex and Gender Information Value Date Recorded Sex Assigned at Not on file Legal Sex Female 4:52 AM INTERMISSION COORDINATOR Gender Identity Not on file Sexual Orientation Not on file documented as of this encounter Plan of Treatment Not on file documented as of this encounter Visit Diagnoses Not on filedocumented in this encounter Additional Health Concerns Infection Onset Date Last Indicated Resolved Time R/O COVID-19 05/17/2020 05/20/2020 05/20/2020 3:21 PM INTERMISSION COORDINATOR documented as of this encounter Care Teams Legal Records Clerk Relationship Specialty Start Date End Date Michael Smith MD [address] [facility] [address] [place] [address] PCP - General 04/28/01 10/23/20 documented as of this encounter
--- OUTSIDE RECORDS SUMMARY | 2024-10-09 09:24 | XMS_ITS | Encounter Summary ---
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 DRIVER Gender Identity Female 08/19/2020 7:43 PM CDT Sexual Orientation Straight 09/24/2020 8: 49 AM CDT 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
--- OUTSIDE RECORDS SUMMARY | 2024-10-09 09:24 | XMS_ITS | Encounter Summary ---
Author Organization [facility] Address [address] [facility] [address] Care Team Providers Care Shot Blaster Name Role Phone Michael Smith MD Primary Care Provider [phone] Encounter Details Date Type Department Care Team (Late st Contact Info) Description 04/28/2001 Outpatient Historical [facility] Lebron Farr MD [address] [facility] [address] [place] [phone] BENIGN NEOPLASM LG BOWEL (Primary Dx) Social History Tobacco Use Types Packs/Day Years Used Date Smoking Tobacco: Never Assessed Comments Unknown Sex and Gender Information Value Date Recorded Sex Assigned at Not on file Legal Sex Female 4:52 AM VISITOR USE ASSISTANT Gender Identity Not on file Sexual Orientation Not on file documented as of this encounter Plan of Treatment Not on file documented as of this encounter Visit Diagnoses Diagnosis Benign neoplasm of colon- Primary documented in this encounter Additional Health Concerns Infection Onset Date Last Indicated Resolved Time R/O COVID-19 05/17/2020 05/20/2020 05/20/2020 3:21 PM VISITOR USE ASSISTANT documented as of this encounter Care Teams Shot Blaster Relationship Specialty Start Date End Date Michael Smith MD [address] [place] [address] PCP - General 04/28/01 10/23/20 documented as of this encounter
--- OUTSIDE RECORDS SUMMARY | 2024-10-09 09:24 | XMS_ITS | Encounter Summary ---
Author Organization [facility] Address [address] [facility] [address] Attn: Epic Prelude ADT [place] [address] Care Team Providers Care Fine Sander Name Role Phone Michael Smith MD Primary Care Provider Encounter Details Date Type Department Care Team (Late st Contact Info) Description 08/07/1992 Outpatient Historical Michael Smith MD [address] [place] [address] Social History Tobacco Use Types Packs/Day Years Used Date Smoking Tobacco: Never Assessed Comments Unknown Sex and Gender Information Value Date Recorded Sex Assigned at Not on file Legal Sex Female 4:52 AM URGENT CARE NURSE PRACTITIONER Gender Identity Not on file Sexual Orientation Not on file documented as of this encounter Plan of Treatment Not on file documented as of this encounter Visit Diagnoses Not on filedocumented in this encounter Additional Health Concerns Infection Onset Date Last Indicated Resolved Time R/O COVID-19 05/17/2020 05/20/2020 05/20/2020 3:21 PM URGENT CARE NURSE PRACTITIONER documented as of this encounter Care Teams Fine Sander Relationship Specialty Start Date End Date Michael Smith MD [address] [place] [address] PCP - General 04/28/01 10/23/20 documented as of this encounter
--- OUTSIDE RECORDS SUMMARY | 2024-10-09 09:24 | XMS_ITS | Encounter Summary ---
Author Organization [facility] Address [address] [place] [address] Care Team Providers Care Learning Support Assistant Name Role Phone Michael Smith MD Primary Care Provider [phone] Encounter Details Date Type Department Care Team (Late st Contact Info) Description 08/18/2007 Outpatient Historical [facility] Internal Medicine [address] [place] [address] Michael Smith MD [address] [place] [address] Social History Tobacco Use Types Packs/Day Years Used Date Smoking Tobacco: Never Assessed Comments Unknown Sex and Gender Information Value Date Recorded Sex Assigned at Not on file Legal Sex Female 4:52 AM IT ENGINEER Gender Identity Not on file Sexual Orientation Not on file documented as of this encounter Plan of Treatment Not on file documented as of this encounter Visit Diagnoses Not on filedocumented in this encounter Additional Health Concerns Infection Onset Date Last Indicated Resolved Time R/O COVID-19 05/17/2020 05/20/2020 05/20/2020 3:21 PM IT ENGINEER documented as of this encounter Care Teams Learning Support Assistant Relationship Specialty Start Date End Date Michael Smith MD [address] [place] [address] PCP - General 04/28/01 10/23/20 documented as of this encounter
--- OUTSIDE RECORDS SUMMARY | 2024-10-09 09:24 | XMS_ITS | Encounter Summary ---
Author Organization [facility] Address [address] [place] [address] Care Team Providers Care Machine Sneller Name Role Phone Michael Smith MD Primary Care Provider [phone] Encounter Details Date Type Department Care Team (Late st Contact Info) Description 04/11/2007 Outpatient Historical [facility] Internal Medicine [address] [place] [address] Michael Smith MD [address] [facility] [address] [place] [address] Social History Tobacco Use Types Packs/Day Years Used Date Smoking Tobacco: Never Assessed Comments Unknown Sex and Gender Information Value Date Recorded Sex Assigned at Not on file Legal Sex Female 4:52 AM HAT AND CAP SEWER Gender Identity Not on file Sexual Orientation Not on file documented as of this encounter Last Filed Vital Signs Vital Sign Reading Time Taken Comments Blood Pressure 150/92 04/11/2007 10:45 AM HAT AND CAP SEWER Pulse 55 04/11/2007 10:45 AM HAT AND CAP SEWER Temperature - - Respiratory Rate - - Oxygen Saturation - - Inhaled Oxygen Concentration - - Weight 85.3 kg (188 lb) 04/11/2007 10:45 AM HAT AND CAP SEWER Height - - Body Mass Index - - documented in this encounter Plan of Treatment Not on file documented as of this encounter Visit Diagnoses Not on filedocumented in this encounter Additional Health Concerns Infection Onset Date Last Indicated Resolved Time R/O COVID-19 05/17/2020 05/20/2020 05/20/2020 3:21 PM HAT AND CAP SEWER documented as of this encounter Care Teams Machine Sneller Relationship Specialty Start Date End Date Michael Smith MD [address] [facility] [address] [place] [address] PCP - General 04/28/01 10/23/20 documented as of this encounter
--- OUTSIDE RECORDS SUMMARY | 2024-10-09 09:24 | XMS_ITS | Encounter Summary ---
Author Organization [facility] Address [address] [place] [address] Care Team Providers Care Entry Specialists Name Role Phone Michael Smith MD Primary Care Provider [phone] Encounter Details Date Type Department Care Team (Latest Contact Info) Description 05/13/2006 Outpatient Historical [facility] Jonel Mulligan MD [address] [facility] [address] [place] [address] Abnormal Mammogram, Unspecified (Primary Dx) Social History Tobacco Use Types Packs/Day Years Used Date Smoking Tobacco: Never Assessed Comments Unknown Sex and Gender Information Value Date Recorded Sex Assigned at Not on file Legal Sex Female 4:52 AM SCHEDULING SPECIALIST Gender Identity Not on file Sexual Orientation Not on file documented as of this encounter Plan of Treatment Not on file documented as of this encounter Visit Diagnoses Diagnosis Abnormal mammogram, unspecified- Primary documented in this encounter Additional Health Concerns Infection Onset Date Last Indicated Resolved Time R/O COVID-19 05/17/2020 05/20/2020 05/20/2020 3:21 PM SCHEDULING SPECIALIST documented as of this encounter Care Teams Entry Specialists Relationship Specialty Start Date End Date Michael Smith MD [address] [facility] [address] [place] [address] PCP - General 04/28/01 10/23/20 documented as of this encounter
--- OUTSIDE RECORDS SUMMARY | 2024-10-09 09:24 | XMS_ITS | Encounter Summary ---
Author Organization [facility] Address [address] [place] [address] Care Team Providers Care Clerical Office Worker Name Role Phone Michael Smith MD Primary Care Provider [phone] Encounter Details Date Type Department Care Team (Late st Contact Info) Description 10/22/2003 Outpatient Historical [facility] Internal Medicine 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 Gender Identity Not on file Sexual Orientation Not on file documented as of this encounter Plan of Treatment Not on file documented as of this encounter Visit Diagnoses Not on filedocumented in this encounter Additional Health Concerns Infection Onset Date Last Indicated Resolved Time R/O COVID-19 05/17/2020 05/20/2020 05/20/2020 3:21 PM CONCRETE BUILDINGS ASSEMBLER documented as of this encounter Care Teams Clerical Office Worker Relationship Specialty Start Date End Date Michael Smith MD [address] [place] [address] PCP - General 04/28/01 10/23/20 documented as of this encounter
--- OUTSIDE RECORDS SUMMARY | 2024-10-09 09:24 | XMS_ITS | Encounter Summary ---
Author Organization [facility] Address [address] [place] [address] Care Team Providers Care Education And Training Manager Name Role Phone Michael Smith MD Primary Care Provider [phone] Encounter Details Date Type Department Care Team (Late st Contact Info) Description 11/13/2005 [facility] [address] [place] [address] Michael Smith MD [address] [place] [address] Social History Tobacco Use Types Packs/Day Years Used Date Smoking Tobacco: Never Assessed Comments Unknown Sex and Gender Information Value Date Recorded Sex Assigned at Not on file Legal Sex Female 4:52 AM SUPERVISOR WATERPROOFING Gender Identity Not on file Sexual Orientation Not on file documented as of this encounter Plan of Treatment Not on file documented as of this encounter Visit Diagnoses Not on filedocumented in this encounter Additional Health Concerns Infection Onset Date Last Indicated Resolved Time R/O COVID-19 05/17/2020 05/20/2020 05/20/2020 3:21 PM SUPERVISOR WATERPROOFING documented as of this encounter Care Teams Education And Training Manager Relationship Specialty Start Date End Date Michael Smith MD [address] [place] [address] PCP - General 04/28/01 10/23/20 documented as of this encounter
--- OUTSIDE RECORDS SUMMARY | 2024-10-09 09:24 | XMS_ITS | Encounter Summary ---
Author Organization [employer] [facility] Address [address] [place] [address] Care Team Providers Care Catalogue And Special Products Manager Name Role Phone Michael Smith MD Primary Care Provider [phone] Encounter Details Date Type Department Care Team (Latest Contact Info) Description 03/17/2004 Outpatient Historical [facility] Michael Smith MD [address] [place] [address] ABN INVOLUN MOVEMENT NEC (Primary Dx) Social History Tobacco Use Types Packs/Day Years Used Date Smoking Tobacco: Never Assessed Comments Unknown Sex and Gender Information Value Date Recorded Sex Assigned at Not on file Legal Sex Female 4:52 AM CAMERA ENGINEER Gender Identity Not on file Sexual Orientation Not on file documented as of this encounter Plan of Treatment Not on file documented as of this encounter Visit Diagnoses Diagnosis Abnormal involuntary movements(781.0)- Primary Abnormal involuntary movements documented in this encounter Additional Health Concerns Infection Onset Date Last Indicated Resolved Time R/O COVID-19 05/17/2020 05/20/2020 05/20/2020 3:21 PM CAMERA ENGINEER documented as of this encounter Care Teams Catalogue And Special Products Manager Relationship Specialty Start Date End Date Michael Smith MD [address] [place] [address] PCP - General 04/28/01 10/23/20 documented as of this encounter
--- OUTSIDE RECORDS SUMMARY | 2024-10-09 09:24 | XMS_ITS | Encounter Summary ---
Author Organization [facility] Address [address] [place] [address] Care Team Providers Care General Matcher Name Role Phone Michael Smith MD Primary Care Provider [phone] Encounter Details Date Type Department Care Team (Late st Contact Info) Description 11/28/2004 Outpatient Historical [facility] Internal Medicine [address] [place] [address] Michael Smith MD [address] [place] [address] Social History Tobacco Use Types Packs/Day Years Used Date Smoking Tobacco: Never Assessed Comments Unknown Sex and Gender Information Value Date Recorded Sex Assigned at Not on file Legal Sex Female 4:52 AM TRIMMER MACHINE Gender Identity Not on file Sexual Orientation Not on file documented as of this encounter Plan of Treatment Not on file documented as of this encounter Visit Diagnoses Not on filedocumented in this encounter Additional Health Concerns Infection Onset Date Last Indicated Resolved Time R/O COVID-19 05/17/2020 05/20/2020 05/20/2020 3:21 PM TRIMMER MACHINE documented as of this encounter Care Teams General Matcher Relationship Specialty Start Date End Date Michael Smith MD [address] [place] [address] PCP - General 04/28/01 10/23/20 documented as of this encounter
--- OUTSIDE RECORDS SUMMARY | 2024-10-09 09:24 | XMS_ITS | Encounter Summary ---
Author Organization [facility] Health Address [address] [place] [address] Care Team Providers Care Aperture Mask Etcher Name Role Phone Michael Smith MD Primary Care Provider [phone] Encounter Details Date Type Department Care Team (Late st Contact Info) Description 06/14/2018 [facility] Outpatient Visit [facility] [address] [place] [address] [place] [address] [address] Social History Tobacco Use Types Packs/Day Years [...] on file documented as of this encounter Functional Status * Is person deaf or have serious hearing difficulty? Answer Date of Assessment Author No 06/05/2018 9:57 PM Yovani Muniz RN * Is person blind or have serious difficulty seeing? Answer Date of Assessment Author No 06/05/2018 9:57 PM Yovani Muniz RN * Does person have serious difficulty walking/climbing stairs? Answer Date of Assessment Author No 06/05/2018 9:57 PM Yovani Muniz RN * Does person have difficulty dressing/bathing? Answer Date of Assessment Author No 06/05/2018 9:57 PM Yovani Muniz RN * Does person have difficulty doing errands alone? Answer Date of Assessment Author No 06/05/2018 9:57 PM Yovani Muniz RN documented as of this encounter Mental Status * Does person have difficulty concentrating/remembering/making decisions? Answer Entry Date Author No 06/05/2018 9:57 PM Yovani Muniz RN documented in this encounter Plan of Treatment Not on file documented as of this encounter Visit Diagnoses Not on filedocumented in this encounter Care Teams Aperture Mask Etcher Relationship Specialty Start Date End Date Michael Smith MD PCP - General Internal Medicine 10/13/12 documented as of this encounter
--- OUTSIDE RECORDS SUMMARY | 2024-10-09 09:24 | XMS_ITS | Encounter Summary ---
Author Organization [facility] Address [address] [place] [address] Care Team Providers Care Insole And Outsole Preparer Name Role Phone Michael Smith MD Primary Care Provider [phone] Encounter Details Date Type Department Care Team (Late st Contact Info) Description 05/27/2006 Orders Only [facility] Internal Medicine [address] [place] [address] Michael Smith MD [address] [facility] [address] [place] [address] Social History Tobacco Use Types Packs/Day Years Used Date Smoking Tobacco: Never Assessed Comments Unknown Sex and Gender Information Value Date Recorded Sex Assigned at Not on file Legal Sex Female 4:52 AM STITCH BONDING MACHINE OPERATOR Gender Identity Not on file Sexual Orientation Not on file documented as of this encounter Progress Notes * Michael Smith MD - 10/04/2007 12:27 PM CDT TIME:09:49 am PATIENT`S HOME PHONE: PATIENT`S WORK PHONE: PATIENT`S INSURANCE: [employer] P[employer] WHO TOOK THE CALL: Anila Guthrie K GENERAL INFORMATION LAST VISIT: 03/08/06 WHO CALLED: Patient called. [phone] PHARMACY NUMBER: [id number] SECTION 1: REQUESTED ACTION shannon 05/27/06 at 09:50 am: MEDICATION REQUEST: Pt has had cold [id number]--Yaolgao Cold & Flu--nasal sinus congestion/no sore throat/no fever/no ear pn/yellow phlegm coughed up--cough just won't go away....../[facility] DOCTOR`S RESPONSE: [email or web address] 05/27/06 at 09:56 am MEDICATIONS: Call in to Pharmacy CEFUROXIME AXETIL ORAL TABLET 250 MG, 1 Two Times A Day, 20 Dispensed, status: NEW PRESCRIPTION, 05/27/2006. DOCTOR`S OTHER RESPONSE: She will need to come in if not better. FINAL ACTION: adarshsbsharron 05/27/06 at 10:26 am Spoke with patient 05/27/06 at 10:27 am. Called pharmacy at 05/27/06 at 10:26 am. .../[facility] Electronically Signed by: Anila Guthrie on May documented in this encounter Plan of Treatment Not on file documented as of this encounter Visit Diagnoses Not on filedocumented in this encounter Additional Health Concerns Infection Onset Date Last Indicated Resolved Time R/O COVID-19 05/17/2020 05/20/2020 05/20/2020 3:21 PM STITCH BONDING MACHINE OPERATOR documented as of this encounter Care Teams Insole And Outsole Preparer Relationship Specialty Start Date End Date Michael Smith MD [address] [facility] [address] [place] [address] PCP - General 04/28/01 10/23/20 documented as of this encounter
--- OUTSIDE RECORDS SUMMARY | 2024-10-09 09:24 | XMS_ITS | Encounter Summary ---
Author Organization [facility] Address [address] [place] [address] Care Team Providers Care Slag Skimmer Name Role Phone Michael Smith MD Primary Care Provider [phone] Encounter Details Date Type Department Care Team (Late st Contact Info) Description 08/25/2002 Outpatient Historical [facility] Internal Medicine [address] [place] [address] Michael Smith MD [address] [place] [address] Social History Tobacco Use Types Packs/Day Years Used Date Smoking Tobacco: Never Assessed Comments Unknown Sex and Gender Information Value Date Recorded Sex Assigned at Not on file Legal Sex Female 4:52 AM REPORTS DEVELOPER Gender Identity Not on file Sexual Orientation Not on file documented as of this encounter Plan of Treatment Not on file documented as of this encounter Visit Diagnoses Not on filedocumented in this encounter Additional Health Concerns Infection Onset Date Last Indicated Resolved Time R/O COVID-19 05/17/2020 05/20/2020 05/20/2020 3:21 PM REPORTS DEVELOPER documented as of this encounter Care Teams Slag Skimmer Relationship Specialty Start Date End Date Michael Smith MD [address] [place] [address] PCP - General 04/28/01 10/23/20 documented as of this encounter
--- OUTSIDE RECORDS SUMMARY | 2024-10-09 09:24 | XMS_ITS | Encounter Summary ---
Author Organization [facility] Address [address] [place] [address] Care Team Providers Care Director Of [employer] Name Role Phone Michael Smith MD Primary Care Provider [phone] Encounter Details Date Type Department Care Team (Late st Contact Info) Description 09/27/2006 Orders Only [facility] Internal Medicine [address] [place] [address] Michael Smith MD [address] [place] [address] Social History Tobacco Use Types Packs/Day Years Used Date Smoking Tobacco: Never Assessed Comments Unknown Sex and Gender Information Value Date Recorded Sex Assigned at Not on file Legal Sex Female 4:52 AM CURTAIN DRIER Gender Identity Not on file Sexual Orientation Not on file documented as of this encounter Plan of Treatment Not on file documented as of this encounter Visit Diagnoses Not on filedocumented in this encounter Additional Health Concerns Infection Onset Date Last Indicated Resolved Time R/O COVID-19 05/17/2020 05/20/2020 05/20/2020 3:21 PM CURTAIN DRIER documented as of this encounter Care Teams Director Of [employer] Relationship Specialty Start Date End Date Michael Smith MD [address] [place] [address] PCP - General 04/28/01 10/23/20 documented as of this encounter
--- OUTSIDE RECORDS SUMMARY | 2024-10-09 09:24 | XMS_ITS | Encounter Summary ---
Author Organization [facility] Address [address] [place] [address] Care Team Providers Care Insulating Machine Operator Name Role Phone Perry Smith MD Primary Care Provider [phone] Encounter Details Date Type Department Care Team (Latest Contact Info) Description 07/16/2008 Outpatient Historical [facility] Carie Vásquez MD [address] [facility] [address] [place] [address] Other Specified Menopausal and Postmenopausal Disorder Social History Tobacco Use Types Packs/Day Years Used Date Smoking Tobacco: Never Comments No Sex and Gender Information Value Date Recorded Sex Assigned at Not on file Legal Sex Female 4:52 AM FUR BLOWER OPERATOR Gender Identity Not on file Sexual Orientation Not on file documented as of this encounter Plan of Treatment Not on file documented as of this encounter Procedures Procedure Name Priority Date/Time Associated Diagnosis Comments XR DEXA BONE DENSITY AXIAL 1 OR MORE SITES Routine 07/16/2008 2:31 PM CDT documented in this encounter Results * XR DEXA BONE DENSITY AXIAL 1 OR MORE SITES (07/16/2008 2:31 PM CDT) Anatomical Region Laterality Modality Other 07/16/2008 2:31 PM CDT Narrative 07/16/2008 4:46 PM CDT [facility] [address] [place], [place] [address] Admit Date: 07/16/2008 MENDEZJOHNATHAN BECKERBOSSMAN Rutherford Sex: F Admit Prov: CARIE VÁSQUEZ Date: 1950 Primary Care Prov: PERRY SMITH CMRN: [id number] Room: [facility] SSN: [address] [place] [address] IMAGING SERVICES Ordering Prov: N/A Accession Number: [id number] Interpretation BONE MINERAL DENSITY (DEXA) HISTORY: 58 year old female with postmenopausal symptoms needing evaluation for osteoporosis. PROCEDURE: Using a Kognitio dual energy x-ray absorptiometry system, the patient's bone mineral density was measured over the lumbar spine and femoral necks. Comparison was made to age and sex matched normal values. FINDINGS: Lateral radiograph of the lumbar spine demonstrates no evidence of fracture. Lumbar Spine ( L1-L4) Bone Mineral Density = 1.421 gm/cm2 Compared to young adult (T-score), difference of +2.0 Standard Deviations. The patient's spine BMD is above normal when compared to that of a young adult. The patient's risk for fracture is negligible. Left Femoral Neck Bone Mineral Density = 1.164 gm/cm2 Compared to young adult (T-score), difference of +1.5 Standard Deviations. The patient's left femoral neck BMD is above normal when compared to that of a young adult. The patient's risk for fracture is negligible. Comparison is made to the most recent measurements of BMD dated 09/17/2003. The prior spine ( L1-L4) BMD was 1.435 gm/cm2. Today's value represents a change of -1.0 %, not a statistically significant change. No prior left femoral neck bone mineral density measurements are available for comparison. A significant change is defined as a change of at least 2.5 standard deviations since the prior study. . Dictated by: PATY DILL 07/16/2008 16:43 Electronically signed by: PATY DILL 07/16/2008 16:44 Procedure Note Paty Dill - 07/16/2008 [facility] [address] [place], [place] [address] Admit Date: 07/16/2008 ARABELLA MENDEZ Sex: F Admit Prov: SUELLEN CARIE Bates Date: 1950 Primary Care Prov: PERRY SMITH CMRN: [id number] Room: [facility] SSN: [id number] IMAGING SERVICES Ordering Prov: N/A Interpretation BONE MINERAL DENSITY (DEXA) HISTORY: 58 year old female with postmenopausal symptoms needing evaluationfor osteoporosis. PROCEDURE: Using a Kognitio dual energy x-ray absorptiometry system, the patient's bone mineral density was measured over the lumbar spineand femoral necks. Comparison was made to age and sex matched normalvalues. FINDINGS: Lateral radiograph of the lumbar spine demonstrates no evidence of fracture. Lumbar Spine ( L1-L4) Bone Mineral Density = 1.421 gm/cm2 Compared to young adult (T-score), difference of +2.0 Standard Deviations. The patient's spine BMD is above normal when compared to that of ayoung adult. The patient's risk for fracture is negligible. Left Femoral Neck Bone Mineral Density = 1.164 gm/cm2 Compared to young adult (T-score), difference of +1.5Standard Deviations. The patient's left femoral neck BMD is above normal when compared tothat of a young adult. The patient's risk for fracture is negligible. Comparison is made to the most recent measurements of BMD dated09/17/2003. The prior spine ( L1-L4) BMD was 1.435 gm/cm2. Today's valuerepresents a change of -1.0 %, not a statistically significant change. No priorleft femoral neck bone mineral density measurements are available for comparison. A significant change is defined as a change of at least 2.5standard deviations since the prior study. . Dictated by: PATY DILL 07/16/2008 16:43 Electronically signed by: PATY DILL 07/16/2008 16:44 Carie Vásquez MD DIAGNOSTIC IMAGING ORDERABLES Fi nal Result documented in this encounter Visit Diagnoses Diagnosis Other specified menopausal and postmenopausal disorder documented in this encounter Additional Health Concerns Infection Onset Date Last Indicated Resolved Time R/O COVID-19 05/17/2020 05/20/202005/2005/20/2020 3:21 PM FUR BLOWER OPERATOR documented as of this encounter Care Teams Insulating Machine Operator Relationship Specialty Start Date End Date Perry Smith MD [address] [facility] [address] [facility] [place] [address] PCP - General 04/28/01 10/23/20 documented as of this encounter
--- OUTSIDE RECORDS SUMMARY | 2024-10-09 09:24 | XMS_ITS | Encounter Summary ---
Author Organization [facility] Address [address] [place] [address] Care Team Providers Care Core Cutter And Reamer Name Role Phone Michael Smith MD Primary Care Provider [phone] Encounter Details Date Type Department Care Team (Late st Contact Info) Description 03/08/2006 Outpatient Historical [facility] Internal Medicine [address] [place] [address] Michael Smith MD [address] [place] [address] Social History Tobacco Use Types Packs/Day Years Used Date Smoking Tobacco: Never Assessed Comments Unknown Sex and Gender Information Value Date Recorded Sex Assigned at Not on file Legal Sex Female 4:52 AM CLOTH STRETCHER Gender Identity Not on file Sexual Orientation Not on file documented as of this encounter Plan of Treatment Not on file documented as of this encounter Visit Diagnoses Not on filedocumented in this encounter Additional Health Concerns Infection Onset Date Last Indicated Resolved Time R/O COVID-19 05/17/2020 05/20/2020 05/20/2020 3:21 PM CLOTH STRETCHER documented as of this encounter Care Teams Core Cutter And Reamer Relationship Specialty Start Date End Date Michael Smith MD [address] [place] [address] PCP - General 04/28/01 10/23/20 documented as of this encounter
--- OUTSIDE RECORDS SUMMARY | 2024-10-09 09:24 | XMS_ITS | Encounter Summary ---
Author Organization [facility] Address [address] [place] [address] Care Team Providers Care Spa Consultant Name Role Phone Michael Smith MD Primary Care Provider [phone] Encounter Details Date Type Department Care Team (Late st Contact Info) Description 01/22/2005 Outpatient Historical Division of Neurology [address] [address] Brandon De Leon MD [address] [facility] [address] [address] Social History Tobacco Use Types Packs/Day Years Used Date Smoking Tobacco: Never Assessed Comments Unknown Sex and Gender Information Value Date Recorded Sex Assigned at Not on file Legal Sex Female 4:52 AM PHP ARCHITECT Gender Identity Not on file Sexual Orientation Not on file documented as of this encounter Plan of Treatment Not on file documented as of this encounter Visit Diagnoses Not on filedocumented in this encounter Additional Health Concerns Infection Onset Date Last Indicated Resolved Time R/O COVID-19 05/17/2020 05/20/2020 05/20/2020 3:21 PM PHP ARCHITECT documented as of this encounter Care Teams Spa Consultant Relationship Specialty Start Date End Date Michael Smith MD [address] [facility] [address] [place] [address] PCP - General 04/28/01 10/23/20 documented as of this encounter
--- OUTSIDE RECORDS SUMMARY | 2024-10-09 09:24 | XMS_ITS | Encounter Summary ---
Author Organization [facility] Address [address] [place] [address] Care Team Providers Care Meat Cutting Teacher Name Role Phone Perry mSith MD Primary Care Provider [phone] Encounter Details Date Type Department Care Team (Latest Contact Info) Description 07/16/2008 Outpatient Historical [facility] IM[facility] Carie Ken MD [address] [facility] [address] [place] [address] Other Screening Mammogram Social History Tobacco Use Types Packs/Day Years Used Date Smoking Tobacco: Never Comments No Sex and Gender Information Value Date Recorded Sex Assigned at Not on file Legal Sex Female 4:52 AM AUTOMATION DEVELOPER Gender Identity Not on file Sexual Orientation Not on file documented as of this encounter Plan of Treatment Not on file documented as of this encounter Procedures Procedure Name Priority Date/Time Associated Diagnosis Comments MAMMO SCREEN BILAT W OR WO CAD Routine 07/16/2008 1:59 PM CDT documented in this encounter Results * MAMMO DIGITAL SCREEN BILAT (07/16/2008 1:59 PM CDT) Anatomical Region Laterality Modality Breast Bilateral Other 07/16/2008 1:59 PM CDT Narrative 07/18/2008 8:34 AM CDT [facility] [address] [place], [place] [address] Admit Date: 07/16/2008 ARABELLA MENDEZ Sex: F Admit Prov: CARIE KEN Date: 1950 Primary Care Prov: [facility]ITH [id number] Ordering Prov: CARIE KEN Accession Number: [id number] Interpretation BILATERAL SCREENING DIGITAL MAMMOGRAMS WITH COMPUTER ASSISTED DIAGNOSIS 07/16/2008 History: Annual screening study. Comparison is made to 09/26/04. The images were reviewed using the CAD system. The breast parenchyma is heterogeneously dense. No new dominant masses, suspicious calcifications or areas of parenchymal asymmetry or distortion are identified. Impression: Stable screening mammogram Recommend routine followup Overall assessment: BIRADS category 1 - Negative Assessment BIRADS: 1-Negative Recommendation: Normal interval follow-up Dictated by: JENN ALVAREZ Electronically signed by: JENN ALVAREZ 07/18/2008 08:31 Transcribed: 07/17/2008 13:54 AMK Procedure Note Jenn Alvarez - 07/18/2008 [address] [address] [place], [place] [address] Admit Date: 07/16/2008 ARABELLA MENDEZ Sex: F Admit Prov: CARIE KEN Date: 1950 Primary Care Prov: PERRY SMITH CMRN: [id number] [id number] IM[facility]ING SERVICES Ordering Prov: CARIE KEN Interpretation BILATERAL SCREENING DIGITAL MAMMOGRAMS WITH COMPUTER ASSISTEDDIAGNOSIS 07/16/2008 History: Annual screening study. Comparison is made to 09/26/04. The images were reviewed using theCAD system. The breast parenchyma is heterogeneously dense. No newdominant masses, suspicious calcifications or areas of parenchymal asymmetryor distortion are identified. Impression: Stable screening mammogram Recommend routine followup Overall assessment: BIRADS category 1 - Negative Assessment BIRADS: 1-Negative Recommendation: Normal interval follow-up Dictated by: JENN ALVAREZ Electronically signed by: JENN ALVAREZ 07/18/2008 08:31 Transcribed: 07/17/2008 13:54 AMK us Carie Ken MD MAMMO ORDERABLES Final Result documented in this encounter Visit Diagnoses Diagnosis Other screening mammogram documented in this encounter Additional Health Concerns Infection Onset Date Last Indicated Resolved Time R/O COVID-19 05/17/2020 05/20/2020 05/20/2020 3:21 PM AUTOMATION DEVELOPER documented as of this encounter Care Teams Meat Cutting Teacher Relationship Specialty Start Date End Date Perry Smith MD [address] [facility] [address] [place] [address] PCP - General 04/28/01 10/23/20 documented as of this encounter
--- OUTSIDE RECORDS SUMMARY | 2024-10-09 09:24 | XMS_ITS | Encounter Summary ---
Author Organization [facility] Address [address] [facility] Attn: Epic Prelude ADT [place] [address] Care Team Providers Care Senior Laboratory Technician Name Role Phone Michael Smith MD Primary Care Provider Encounter Details Date Type Department Care Team (Late st Contact Info) Description 08/25/1993 Outpatient Historical Michael Smith MD [address] [place] [address] Social History Tobacco Use Types Packs/Day Years Used Date Smoking Tobacco: Never Assessed Comments Unknown Sex and Gender Information Value Date Recorded Sex Assigned at Not on file Legal Sex Female 4:52 AM GOVERNMENT SERVICES PROFESSIONAL Gender Identity Not on file Sexual Orientation Not on file documented as of this encounter Plan of Treatment Not on file documented as of this encounter Visit Diagnoses Not on filedocumented in this encounter Additional Health Concerns Infection Onset Date Last Indicated Resolved Time R/O COVID-19 05/17/2020 05/20/2020 05/20/2020 3:21 PM GOVERNMENT SERVICES PROFESSIONAL documented as of this encounter Care Teams Senior Laboratory Technician Relationship Specialty Start Date End Date Michael Smith MD [address] [place] [address] PCP - General 04/28/01 10/23/20 documented as of this encounter
--- OUTSIDE RECORDS SUMMARY | 2024-10-09 09:24 | XMS_ITS | Encounter Summary ---
Author Organization [facility] Address [address] [place] [address] Care Team Providers Care Credit Director Name Role Phone Michael Smith MD Primary Care Provider [phone] Encounter Details Date Type Department Care Team (Late st Contact Info) Description 04/13/2007 Outpatient Historical [facility] Internal Medicine [address] [place] [address] Michael Smith MD [address] [place] [address] Social History Tobacco Use Types Packs/Day Years Used Date Smoking Tobacco: Never Assessed Comments Unknown Sex and Gender Information Value Date Recorded Sex Assigned at Not on file Legal Sex Female 4:52 AM MANAGER OF CLINICAL Gender Identity Not on file Sexual Orientation Not on file documented as of this encounter Plan of Treatment Not on file documented as of this encounter Visit Diagnoses Not on filedocumented in this encounter Additional Health Concerns Infection Onset Date Last Indicated Resolved Time R/O COVID-19 05/17/2020 05/20/2020 05/20/2020 3:21 PM MANAGER OF CLINICAL documented as of this encounter Care Teams Credit Director Relationship Specialty Start Date End Date Michael Smith MD [address] [place] [address] PCP - General 04/28/01 10/23/20 documented as of this encounter
--- OUTSIDE RECORDS SUMMARY | 2024-10-09 09:24 | XMS_ITS | Encounter Summary ---
Author Organization [facility] Address [address] [place] [address] Care Team Providers Care Client Technical Support Associate Name Role Phone Michael Smith MD Primary Care Provider [phone] Reason for Visit * Reason Comments Medication Refill Encounter Details Date Type Department Care Team (Late st Contact Info) Description 04/04/2018 Refill [facility] [place] [address] [facility] [address] [place] [address] Michael Smith MD [address] [facility] [address] [place] [address] Social History Tobacco Use Types Packs/Day Years Used Date Smoking Tobacco: Never Smokeless Tobacco: Never Alcohol Use Standard Drinks/Week Comments No 0 (1 standard drink = 0.6 oz pur e alcohol) Comments No Sex and Gender Information Value Date Recorded Sex Assigned at Not on file Legal Sex Female 4:52 AM MACARONI PRESS OPERATOR Gender Identity Not on file Sexual Orientation Not on file Occupation Industry Job Start Date Job End Date Not on file Not on file Not on file Not on file documented as of this encounter Miscellaneous Notes * Telephone Encounter - Ayse Ward - 04/05/2018 7:06 AM CST Last ov-06/28/2017 Last refill- 05/31/2017 RONI PRESS OPERATOR documented in this encounter Plan of Treatment Not on file documented as of this encounter Visit Diagnoses Not on filedocumented in this encounter Additional Health Concerns Infection Onset Date Last Indicated Resolved Time R/O COVID-19 05/17/2020 05/20/2020 05/20/2020 3:21 PM MACARONI PRESS OPERATOR documented as of this encounter Care Teams Client Technical Support Associate Relationship Specialty Start Date End Date Michael Smith MD [address] [facility] [address] [place] [address] PCP - General 04/28/01 10/23/20 documented as of this encounter
--- OUTSIDE RECORDS SUMMARY | 2024-10-09 09:24 | XMS_ITS | Encounter Summary ---
Author Organization [facility] Address [address] [place] [address] Care Team Providers Care Horseback Excavator Name Role Phone Michael Smith MD Primary Care Provider [phone] Encounter Details Date Type Department Care Team (Late st Contact Info) Description 03/07/2004 Outpatient Historical [facility] Internal Medicine [address] [place] [address] Michael Smith MD [address] [place] [address] Social History Tobacco Use Types Packs/Day Years Used Date Smoking Tobacco: Never Assessed Comments Unknown Sex and Gender Information Value Date Recorded Sex Assigned at Not on file Legal Sex Female 4:52 AM UTILITY SERVICE WORKER Gender Identity Not on file Sexual Orientation Not on file documented as of this encounter Plan of Treatment Not on file documented as of this encounter Visit Diagnoses Not on filedocumented in this encounter Additional Health Concerns Infection Onset Date Last Indicated Resolved Time R/O COVID-19 05/17/2020 05/20/2020 05/20/2020 3:21 PM UTILITY SERVICE WORKER documented as of this encounter Care Teams Horseback Excavator Relationship Specialty Start Date End Date Michael Smith MD [address] [place] [address] PCP - General 04/28/01 10/23/20 documented as of this encounter
--- OUTSIDE RECORDS SUMMARY | 2024-10-09 09:24 | XMS_ITS | Encounter Summary ---
Author Organization [facility] Address [address] [facility] [place] [place] [id number] Care Team Providers Care Musical Engineer Name Role Phone Michael Smith MD Primary Care Provider [phone] Encounter Details Date Type Department Care Team (Late st Contact Info) Description 11/18/2004 Outpatient Historical [facility] GI LAB Lebron Farr MD [address] [facility] [address] [place] [phone] BENIGN NEOPLASM LG BOWEL (Primary Dx) Social History Tobacco Use Types Packs/Day Years Used Date Smoking Tobacco: Never Assessed Comments Unknown Sex and Gender Information Value Date Recorded Sex Assigned at Not on file Legal Sex Female 4:52 AM CRITICAL CARE SPECIALIST Gender Identity Not on file Sexual Orientation Not on file documented as of this encounter Plan of Treatment Not on file documented as of this encounter Visit Diagnoses Diagnosis Benign neoplasm of colon- Primary documented in this encounter Additional Health Concerns Infection Onset Date Last Indicated Resolved Time R/O COVID-19 05/17/2020 05/20/2020 05/20/2020 3:21 PM CRITICAL CARE SPECIALIST documented as of this encounter Care Teams Musical Engineer Relationship Specialty Start Date End Date Michael Smith MD [address] [facility] [address] [place] [address] PCP - General 04/28/01 10/23/20 documented as of this encounter
--- OUTSIDE RECORDS SUMMARY | 2024-10-09 09:24 | XMS_ITS | Encounter Summary ---
Author Organization [facility] Address [address] [place] [address] Care Team Providers Care Geoduck Diver Name Role Phone Michael Smith MD Primary Care Provider [phone] Encounter Details Date Type Department Care Team (Late st Contact Info) Description 02/22/2004 Outpatient Historical [facility] Internal Medicine [address] [place] [address] Michael Smith MD [address] [place] [address] Social History Tobacco Use Types Packs/Day Years Used Date Smoking Tobacco: Never Assessed Comments Unknown Sex and Gender Information Value Date Recorded Sex Assigned at Not on file Legal Sex Female 4:52 AM REFUGE MANAGER Gender Identity Not on file Sexual Orientation Not on file documented as of this encounter Plan of Treatment Not on file documented as of this encounter Visit Diagnoses Not on filedocumented in this encounter Additional Health Concerns Infection Onset Date Last Indicated Resolved Time R/O COVID-19 05/17/2020 05/20/2020 05/20/2020 3:21 PM REFUGE MANAGER documented as of this encounter Care Teams Geoduck Diver Relationship Specialty Start Date End Date Michael Smith MD [address] [place] [address] PCP - General 04/28/01 10/23/20 documented as of this encounter
--- OUTSIDE RECORDS SUMMARY | 2024-10-09 09:24 | XMS_ITS | Encounter Summary ---
Author Organization [facility] Address [address] [place] [address] Care Team Providers Care Salvage Engineering Technician Name Role Phone Roxanne Werner MD Unavailable Ata Bronson DPM Unavailable Jeannie Graham MD Primary Care Provider Encounter Details Date Type Department Care Team (Late st Contact Info) Description 08/30/2024 Results Follow-Up [place] [employer] [address] [address] Roxanne Werner MD [address] [place] [address] [employer] Social History Tobacco Use Types Packs/Day [...] on file Legal Sex Female 2:53 PM MERCHANDISE APPRAISER Gender Identity Female 08/19/2020 7:43 PM CDT Sexual Orientation Straight 09/24/2020 8: 49 AM CDT 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
--- OUTSIDE RECORDS SUMMARY | 2024-10-09 09:24 | XMS_ITS | Encounter Summary ---
Author Organization [facility] Address [address] [place] [address] Care Team Providers Care Bearing Inspector Name Role Phone Perry Smith MD Primary Care Provider [phone] Encounter Details Date Type Department Care Team (Latest Contact Info) Description 11/03/2007 Outpatient Historical [facility] Carie Ken MD [address] [facility] [address] [place] [address] Other Screening Mammogram Social History Tobacco Use Types Packs/Day Years Used Date Smoking Tobacco: Never Assessed Comments Unknown Sex and Gender Information Value Date Recorded Sex Assigned at Not on file Legal Sex Female 4:52 AM CHIN STRAP SEWER Gender Identity Not on file Sexual Orientation Not on file documented as of this encounter Plan of Treatment Not on file documented as of this encounter Procedures Procedure Name Priority Date/Time Associated Diagnosis Comments MAMMO SCREEN BILAT W OR WO CAD Routine 11/03/2007 11:44 AM CDT documented in this encounter Results * MAMMO DIGITAL SCREEN BILAT (11/03/2007 11:44 AM CDT) Anatomical Region Laterality Modality Breast Bilateral Other 11/03/2007 11:4 4 AM CDT Narrative 11/08/2007 9:24 AM CDT [facility] [address] [place], [place] [address] Admit Date: 11/03/2007 ARABELLA MENDEZ Sex: F Admit Prov: CARIE KEN Date: 1950 Primary Care Prov: PERRY SMITH CMRN: [id number] [facility] [address] [place] [address] IMAGING SERVICES Ordering Prov: CARIE KEN Accession Number: [id number] Interpretation BILATERAL FULL FIELD DIGITAL SCREENING MAMMOGRAM WITH CAD. Date: 11/03/2007 History: Routine Screening. Technique: Full field digital craniocaudal and mediolateral oblique projections of both breasts were obtained. Computer aided diagnosis was performed. Comparison: 09/2004, 09/2005 Breast Parenchymal Composition: Heterogeneously dense, which lowers the sensitivity of mammography. Findings: No suspicious mass, suspicious microcalcifications, or architectural distortion in either breast is identified. Since the prior study, there has been no significant interval change. The computer aided diagnosis detects no significant abnormality. Overall Assessment: BI-RADS category 1: Negative. Recommendation: Annual mammography is recommended. Assessment BIRADS: 1-Negative Recommendation: Normal interval follow-up Dictated by: FRANCISCO J RAO Electronically signed by: FRANCISCO J RAO 11/08/2007 09:24 Transcribed: 11/08/2007 08:37 DKT Procedure Note Francisco J Rao - 11/08/2007 [facility] [address] [place], [place] [address] Admit Date: 11/03/2007 MARILYNN ARABELLA R Sex: F Admit Prov: CARIE KEN Date: 1950 Primary Care Prov: PERRY SMITH CMRN: [id number] [facility] [address] [place] [address] IMAGING SERVICES Ordering Prov: CARIE KEN Interpretation BILATERAL FULL FIELD DIGITAL SCREENING MAMMOGRAM WITH CAD. Date: 11/03/2007 History: Routine Screening. Technique: Full field digital craniocaudal and mediolateral oblique projections of both breasts were obtained. Computer aided diagnosiswas performed. Comparison: 09/2004, 09/2005 Breast Parenchymal Composition: Heterogeneously dense, which lowersthe sensitivity of mammography. Findings: No suspicious mass, suspicious microcalcifications, or architectural distortion in either breast is identified. Since theprior study, there has been no significant interval change. The computeraided diagnosis detects no significant abnormality. Overall Assessment: BI-RADS category 1: Negative. Recommendation: Annual mammography is recommended. Assessment BIRADS: 1-Negative Recommendation: Normal interval follow-up Dictated by: FRANCISCO J RAO Electronically signed by: FRANCISCO J RAO 11/08/2007 09:24 Transcribed: 11/08/2007 08:37 DKT us Carie Ken MD MAMMO ORDERABLES Final Result documented in this encounter Visit Diagnoses Diagnosis Other screening mammogram documented in this encounter Additional Health Concerns Infection Onset Date Last Indicated Resolved Time R/O COVID-19 05/17/2020 05/20/2020 05/20/2020 3:21 PM CHIN STRAP SEWER documented as of this encounter Care Teams Bearing Inspector Relationship Specialty Start Date End Date Perry Smith MD [address] [facility] [address] [place] [address] PCP - General 04/28/01 10/23/20 documented as of this encounter
--- OUTSIDE RECORDS SUMMARY | 2024-10-09 09:24 | XMS_ITS | Encounter Summary ---
Author Organization [email or web address] Address [address] [place] [address] Care Team Providers Care Molding Associate Name Role Phone Michael Smith MD Primary Care Provider Encounter Details Date Type Department Care Team (Late st Contact Info) Description 11/11/2004 Outpatient Historical [facility] Internal Medicine [address] [place] [address] Michael Smith MD [address] [place] [address] Social History Tobacco Use Types Packs/Day Years Used Date Smoking Tobacco: Never Assessed Comments Unknown Sex and Gender Information Value Date Recorded Sex Assigned at Not on file Legal Sex Female 4:52 AM CATTLE PRODUCERS Gender Identity Not on file Sexual Orientation Not on file documented as of this encounter Plan of Treatment Not on file documented as of this encounter Visit Diagnoses Not on filedocumented in this encounter Additional Health Concerns Infection Onset Date Last Indicated Resolved Time R/O COVID-19 05/17/2020 05/20/2020 05/20/2020 3:21 PM CATTLE PRODUCERS documented as of this encounter Care Teams Molding Associate Relationship Specialty Start Date End Date Michael Smith MD [address] [place] [address] PCP - General 04/28/01 10/23/20 documented as of this encounter
--- OUTSIDE RECORDS SUMMARY | 2024-10-09 09:24 | XMS_ITS | Encounter Summary ---
Author Organization [facility] Address [address] [place] [address] Care Team Providers Care Graphic Art Designer Name Role Phone Michael Smith MD Primary Care Provider [phone] Encounter Details Date Type Department Care Team (Late st Contact Info) Description 12/20/2007 Outpatient Historical [facility] Lebron Farr MD [address] [place] [phone] Social History Tobacco Use Types Packs/Day Years Used Date Smoking Tobacco: Never Comments No Sex and Gender Information Value Date Recorded Sex Assigned at Not on file Legal Sex Female 4:52 AM BOOKKEEPER ASSISTANT Gender Identity Not on file Sexual Orientation Not on file documented as of this encounter Plan of Treatment Not on file documented as of this encounter Visit Diagnoses Not on filedocumented in this encounter Additional Health Concerns Infection Onset Date Last Indicated Resolved Time R/O COVID-19 05/17/2020 05/20/2020 05/20/2020 3:21 PM BOOKKEEPER ASSISTANT documented as of this encounter Care Teams Graphic Art Designer Relationship Specialty Start Date End Date Michael Smith MD [address] [place] [address] PCP - General 04/28/01 10/23/20 documented as of this encounter
--- OUTSIDE RECORDS SUMMARY | 2024-10-09 09:24 | XMS_ITS | Encounter Summary ---
Author Organization [facility] Address [address] [place] [address] Care Team Providers Care Sand Technician Name Role Phone Michael Smith MD Primary Care Provider Encounter Details Date Type Department Care Team (Late st Contact Info) Description 01/26/2001 Outpatient Historical [facility] Michael Torres MD [address] [place] [address] Social History Tobacco Use Types Packs/Day Years Used Date Smoking Tobacco: Never Assessed Comments Unknown Sex and Gender Information Value Date Recorded Sex Assigned at Not on file Legal Sex Female 4:52 AM PAPER COATING SUPERVISOR Gender Identity Not on file Sexual Orientation Not on file documented as of this encounter Plan of Treatment Not on file documented as of this encounter Visit Diagnoses Not on filedocumented in this encounter Additional Health Concerns Infection Onset Date Last Indicated Resolved Time R/O COVID-19 05/17/2020 05/20/2020 05/20/2020 3:21 PM PAPER COATING SUPERVISOR documented as of this encounter Care Teams Sand Technician Relationship Specialty Start Date End Date Michael Smith MD [address] [place] [address] PCP - General 04/28/01 10/23/20 documented as of this encounter
--- OUTSIDE RECORDS SUMMARY | 2024-10-09 09:24 | XMS_ITS | Encounter Summary ---
Author Organization [facility] Address [address] [place] [address] Care Team Providers Care Delivery Coordinator Name Role Phone Michael Smith MD Primary Care Provider [phone] Encounter Details Date Type Department Care Team (Late st Contact Info) Description 08/17/2006 Outpatient Historical [facility] Internal Medicine [address] [place] [address] Michael Smith MD [address] [facility] [address] [place] [address] Social History Tobacco Use Types Packs/Day Years Used Date Smoking Tobacco: Never Assessed Comments Unknown Sex and Gender Information Value Date Recorded Sex Assigned at Not on file Legal Sex Female 4:52 AM WINDOW TRIMMER Gender Identity Not on file Sexual Orientation Not on file documented as of this encounter Last Filed Vital Signs Vital Sign Reading Time Taken Comments Blood Pressure 144/90 08/17/2006 9:00 AM CDT Pulse - - Temperature - - Respiratory Rate - - Oxygen Saturation - - Inhaled Oxygen Concentration - - Weight 83 kg (183 lb) 08/17/2006 9:00 AM CDT Height - - Body Mass Index - - documented in this encounter Plan of Treatment Not on file documented as of this encounter Visit Diagnoses Not on filedocumented in this encounter Additional Health Concerns Infection Onset Date Last Indicated Resolved Time R/O COVID-19 05/17/2020 05/20/2020 05/20/2020 3:21 PM WINDOW TRIMMER documented as of this encounter Care Teams Delivery Coordinator Relationship Specialty Start Date End Date Michael Smith MD [address] [facility] [address] [place] [address] PCP - General 04/28/01 10/23/20 documented as of this encounter
--- OUTSIDE RECORDS SUMMARY | 2024-10-09 09:24 | XMS_ITS | Encounter Summary ---
Author Organization [facility] Address [address] [place] [address] Care Team Providers Care Instrument Mechanic Name Role Phone Michael Smith MD Primary Care Provider [phone] Encounter Details Date Type Department Care Team (Late st Contact Info) Description 10/07/2004 Outpatient Historical [facility] Internal Medicine [address] [place] [address] Michael Smith MD [address] [place] [address] Social History Tobacco Use Types Packs/Day Years Used Date Smoking Tobacco: Never Assessed Comments Unknown Sex and Gender Information Value Date Recorded Sex Assigned at Not on file Legal Sex Female 4:52 AM FILM MAKER Gender Identity Not on file Sexual Orientation Not on file documented as of this encounter Plan of Treatment Not on file documented as of this encounter Visit Diagnoses Not on filedocumented in this encounter Additional Health Concerns Infection Onset Date Last Indicated Resolved Time R/O COVID-19 05/17/2020 05/20/2020 05/20/2020 3:21 PM FILM MAKER documented as of this encounter Care Teams Instrument Mechanic Relationship Specialty Start Date End Date Michael Smith MD [address] [place] [address] PCP - General 04/28/01 10/23/20 documented as of this encounter
--- OUTSIDE RECORDS SUMMARY | 2024-10-09 09:24 | XMS_ITS | Encounter Summary ---
Author Organization [facility] Address [address] [place] [address] Care Team Providers Care Toeing Stockings Name Role Phone Michael Smith MD Primary Care Provider [phone] Encounter Details Date Type Department Care Team (Late st Contact Info) Description 02/10/2005 Outpatient Historical [facility] Internal Medicine [address] [place] [address] Michael Smith MD [address] [place] [address] Social History Tobacco Use Types Packs/Day Years Used Date Smoking Tobacco: Never Assessed Comments Unknown Sex and Gender Information Value Date Recorded Sex Assigned at Not on file Legal Sex Female 4:52 AM WAITER/WAITRESS COUNTER Gender Identity Not on file Sexual Orientation Not on file documented as of this encounter Plan of Treatment Not on file documented as of this encounter Visit Diagnoses Not on filedocumented in this encounter Additional Health Concerns Infection Onset Date Last Indicated Resolved Time R/O COVID-19 05/17/2020 05/20/2020 05/20/2020 3:21 PM WAITER/WAITRESS COUNTER documented as of this encounter Care Teams Toeing Stockings Relationship Specialty Start Date End Date Michael Smith MD [address] [place] [address] PCP - General 04/28/01 10/23/20 documented as of this encounter
--- OUTSIDE RECORDS SUMMARY | 2024-10-09 09:24 | XMS_ITS | Encounter Summary ---
Author Organization [facility] Address [address] [place] [address] Care Team Providers Care Industrial Insulator Name Role Phone Michael Smith MD Primary Care Provider [phone] Encounter Details Date Type Department Care Team (Late st Contact Info) Description 04/06/[address] Orders [address] [facility] Internal Medicine [address] [place] [address] Michael Smith MD [address] [facility] [address] [place] [address] Social History Tobacco Use Types Packs/Day Years Used Date Smoking Tobacco: Never Assessed Comments Unknown Sex and Gender Information Value Date Recorded Sex Assigned at Not on file Legal Sex Female 4:52 AM B AND B GANG WORKER Gender Identity Not on file Sexual Orientation Not on file documented as of this encounter Progress Notes * Michael Smith MD - 09/22/2007 8:37 PM CDT TIME:10:00 am PATIENT`S HOME PHONE: PATIENT`S WORK PHONE: PATIENT`S INSURANCE: [email or web address] PPO WHO TOOK THE CALL: Giselle Gamino L GENERAL INFORMATION PATIENT STATUS: Established Patient. WHO CALLED: Pharmacy called. PHARMACY NUMBER: [phone] SECTION 1: REQUESTED ACTION nabila 04/06/07 at 10:00 am: MEDICATION REQUEST: MEDICATION REQUEST: Patient requests a refill. Levothyroxine 112mcg #30. last fill: 03/03/07/rlora DOCTOR`S RESPONSE: toi 04/06/07 at 01:48 pm MEDICATIONS: LEVOXYL ORAL TABLET 112 MCG TABLETS, Take one tab po every day, 30 Dispensed, 6 Fills, 30 Duration/Days Supply, status: CONTINUED, 04/06/2007. FINAL ACTION: lukasrora 04/06/07 at 03:58 pm Spoke with patient 04/06/07 at 04:00 pm. scheduled for f/u on 04/11/07/elizabeth Called pharmacy at 04/06/07 at 03:58 pm. voice mail/rll Electronically Signed by: Giselle Gamino on Friday, April 06, 2007 documented in this encounter Plan of Treatment Not on file documented as of this encounter Visit Diagnoses Not on filedocumented in this encounter Additional Health Concerns Infection Onset Date Last Indicated Resolved Time R/O COVID-19 05/17/2020 05/20/2020 05/20/2020 3:21 PM B AND B GANG WORKER documented as of this encounter Care Teams Industrial Insulator Relationship Specialty Start Date End Date Michael Smith MD [address] [facility] [address] [address] PCP - General 04/28/01 10/23/20 documented as of this encounter
--- OUTSIDE RECORDS SUMMARY | 2024-10-09 09:24 | XMS_ITS | Encounter Summary ---
Author Organization [facility] Address [address] [place] [address] Care Team Providers Care Telecom Assistant Name Role Phone Michael Smith MD Primary Care Provider [phone] Encounter Details Date Type Department Care Team (Late st Contact Info) Description 11/29/2006 Orders Only [facility] Internal Medicine [address] [place] [address] Michael Smith MD [address] [place] [address] Social History Tobacco Use Types Packs/Day Years Used Date Smoking Tobacco: Never Assessed Comments Unknown Sex and Gender Information Value Date Recorded Sex Assigned at Not on file Legal Sex Female 4:52 AM PARTNER INTEGRATION PLANNER Gender Identity Not on file Sexual Orientation Not on file documented as of this encounter Plan of Treatment Not on file documented as of this encounter Visit Diagnoses Not on filedocumented in this encounter Additional Health Concerns Infection Onset Date Last Indicated Resolved Time R/O COVID-19 05/17/2020 05/20/2020 05/20/2020 3:21 PM PARTNER INTEGRATION PLANNER documented as of this encounter Care Teams Telecom Assistant Relationship Specialty Start Date End Date Michael Smith MD [address] [place] [address] PCP - General 04/28/01 10/23/20 documented as of this encounter
--- OUTSIDE RECORDS SUMMARY | 2024-10-09 09:24 | XMS_ITS | Encounter Summary ---
Author Organization [facility] Address [address] [facility] Attn: Epic Prelude ADT [place] [address] Care Team Providers Care Power Shovel Operator Name Role Phone Michael Smith MD Primary Care Provider [phone] Encounter Details Date Type Department Care Team (Late st Contact Info) Description 06/18/1993 Outpatient Historical Michael Smith MD [address] [place] [address] Social History Tobacco Use Types Packs/Day Years Used Date Smoking Tobacco: Never Assessed Comments Unknown Sex and Gender Information Value Date Recorded Sex Assigned at Not on file Legal Sex Female 4:52 AM TEST ENGINE EVALUATOR Gender Identity Not on file Sexual Orientation Not on file documented as of this encounter Plan of Treatment Not on file documented as of this encounter Visit Diagnoses Not on filedocumented in this encounter Additional Health Concerns Infection Onset Date Last Indicated Resolved Time R/O COVID-19 05/17/2020 05/20/2020 05/20/2020 3:21 PM TEST ENGINE EVALUATOR documented as of this encounter Care Teams Power Shovel Operator Relationship Specialty Start Date End Date Michael Smith MD [address] [place] [address] PCP - General 04/28/01 10/23/20 documented as of this encounter
--- OUTSIDE RECORDS SUMMARY | 2024-10-09 09:24 | XMS_ITS | Encounter Summary ---
Author Organization [employer] [facility] Address [address] [place] [address] Care Team Providers Care Pressing Machine Operator Name Role Phone Michael Smith MD Primary Care Provider [phone] Encounter Details Date Type Department Care Team (Latest Contact Info) Description 10/22/2003 Outpatient Historical [facility] Jonel Vásquez MD [address] [facility] [address] [place] [address] SCREENING MAMM-MAILG NEOPL-OTHER (Primary Dx) Social History Tobacco Use Types Packs/Day Years Used Date Smoking Tobacco: Never Assessed Comments Unknown Sex and Gender Information Value Date Recorded Sex Assigned at Not on file Legal Sex Female 4:52 AM ASSISTANT MANAGER PT Gender Identity Not on file Sexual Orientation Not on file documented as of this encounter Plan of Treatment Not on file documented as of this encounter Visit Diagnoses Diagnosis Other screening mammogram- Primary documented in this encounter Additional Health Concerns Infection Onset Date Last Indicated Resolved Time R/O COVID-19 05/17/2020 05/20/2020 05/20/2020 3:21 PM ASSISTANT MANAGER PT documented as of this encounter Care Teams Pressing Machine Operator Relationship Specialty Start Date End Date Michael Smith MD [address] [facility] [address] [place] [address] PCP - General 04/28/01 10/23/20 documented as of this encounter
--- OUTSIDE RECORDS SUMMARY | 2024-10-09 09:24 | XMS_ITS | Clinical Summary ---
Author Organization [facility] Address [address] [place] [address] Care Team Providers Care Weight Recorder Name Role Phone Yesi Reddy AFLOAT CRYPTOLOGIC MANAGER Primary Care Provider [phone] Allergies Active Allergy Reactions Criticality Noted Date Comments Sulfa Antibiotics Itching 03/08/2023 Medications apixaban (ELIQUIS) 5 MG tablet Take 5 mg by mouth in the morning and 5 mg in the evening. Active cholecalciferol (VITAMIN D-3) 1.25 MG (61539 UT) capsule Take 50,000 Units by mouth 1 (one) time per week Active cyanocobalamin (VITAMIN B-12) 1000 MCG tablet Take 1,000 mcg by mouth 1 (one) time each day Active fluticasone (FLONASE) 50 MCG/ACT nasal spray Administer 1 spray into each nostril 1 (one) time each day Active furosemide (LASIX) 20 MG tablet Take 20 mg by mouth in the morning and 20 mg in the evening. Active hydrOXYzine (ATARAX) 25 MG tablet Take 25 mg by mouth 3 (three) times a day if needed Active levothyroxine sodium (TIROSINT) 112 MCG capsule Take 112 mcg by mouth 1 (one) time each day Active metoprolol tartrate (LOPRESSOR) 50 MG tablet Take 50 mg by mouth in the morning and 50 mg in the evening. Active NIFEdipine CC (ADALAT CC) 60 MG 24 hr tablet Take 60 mg by mouth 1 (one) time each day before breakfast Do not crush, chew, or split. Active oxybutynin XL (DITROPAN-XL) 5 MG 24 hr tablet Take 5 mg by mouth 1 (one) time each day Do not crush, chew, or split. Active Potassium Gluconate 595 (99 K) MG tablet Take 1 tablet by mouth 1 (one) time each day Active rosuvastatin (CRESTOR) 5 MG tablet Take 5 mg by mouth 1 (one) time each day Active thiamine (VITAMIN B-1) 100 MG tablet Take 100 mg by mouth 1 (one) time each day Active cyclobenzaprine (FLEXERIL) 10 MG tablet Take 10 mg by mouth 3 (three) times a day if needed Active Social History Tobacco Use Types Packs/Day Years Used Date Smoking Tobacco: Never Assessed Comments Unknown Sex and Gender Information Value Date Recorded Sex Assigned at Not on file Legal Sex Female 11:53 AM EST Gender Identity Not on file Sexual Orientation Not on file Plan of Treatment Health Maintenance Due Date Last Done Comments Pneumococcal Vaccine: 50+ Ye ars (1 - PCV) 02/02/1998 Influenza Vaccine (Season Ended) 2025 Hepatitis B Vaccine Aged Out No longe r eligible based on patient's age to complete this topic Care Teams Weight Recorder Relationship Specialty Start Date End Date Yesi Reddy FNP [address] [place] [address] PCP - General Nurse Practitioner 05/13/23
--- OUTSIDE RECORDS SUMMARY | 2024-10-09 09:24 | XMS_ITS | Encounter Summary ---
Author Organization [facility] Address [address] [facility] Attn: Epic Prelude ADT [place] [address] Care Team Providers Care Mine Technician Name Role Phone Michael Smith MD Primary Care Provider Encounter Details Date Type Department Care Team (Late st Contact Info) Description 11/12/1992 Outpatient Historical Michael Smith MD [address] [place] [address] Social History Tobacco Use Types Packs/Day Years Used Date Smoking Tobacco: Never Assessed Comments Unknown Sex and Gender Information Value Date Recorded Sex Assigned at Not on file Legal Sex Female 4:52 AM SHIPFITTER Gender Identity Not on file Sexual Orientation Not on file documented as of this encounter Plan of Treatment Not on file documented as of this encounter Visit Diagnoses Not on filedocumented in this encounter Additional Health Concerns Infection Onset Date Last Indicated Resolved Time R/O COVID-19 05/17/2020 05/20/2020 05/20/2020 3:21 PM SHIPFITTER documented as of this encounter Care Teams Mine Technician Relationship Specialty Start Date End Date Michael Smith MD [address] [place] [address] PCP - General 04/28/01 10/23/20 documented as of this encounter
--- OUTSIDE RECORDS SUMMARY | 2024-10-09 09:24 | XMS_ITS | Encounter Summary ---
Author Organization [facility] Address [address] [place] [address] Care Team Providers Care Ballast Cleaning Operator Name Role Phone Michael Smith MD Primary Care Provider [phone] Reason for Visit * Reason Comments Medication Refill Encounter Details Date Type Department Care Team (Late st Contact Info) Description 04/26/2018 Refill [facility] [place] [address] [facility] [address] [place] [address] Michael Smith MD 300 [facility] [address] [place] [address] Social History Tobacco Use Types Packs/Day Years Used Date Smoking Tobacco: Never Smokeless Tobacco: Never Alcohol Use Standard Drinks/Week Comments No 0 (1 standard drink = 0.6 oz pur e alcohol) Comments No Sex and Gender Information Value Date Recorded Sex Assigned at Not on file Legal Sex Female 4:52 AM ROLL BUILDER Gender Identity Not on file Sexual Orientation Not on file Occupation Industry Job Start Date Job End Date Not on file Not on file Not on file Not on file documented as of this encounter Miscellaneous Notes * Telephone Encounter - Ayse Ward - 04/26/2018 1:50 PM CST Last ov- 06/28/2017 Last refill- 04/13/2017 BUILDER documented in this encounter Plan of Treatment Not on file documented as of this encounter Visit Diagnoses Not on filedocumented in this encounter Additional Health Concerns Infection Onset Date Last Indicated Resolved Time R/O COVID-19 05/17/2020 05/20/2020 05/20/2020 3:21 PM ROLL BUILDER documented as of this encounter Care Teams Ballast Cleaning Operator Relationship Specialty Start Date End Date Michael Smith MD 300 [facility] [address] [place] [address] PCP - General 04/28/01 10/23/20 documented as of this encounter
--- OUTSIDE RECORDS SUMMARY | 2024-10-09 09:24 | XMS_ITS | Encounter Summary ---
Author Organization [facility] Address [address] [place] [address] Care Team Providers Care Executive Assistant Name Role Phone Michael Smith MD Primary Care Provider [phone] Encounter Details Date Type Department Care Team (Late st Contact Info) Description 10/06/2007 Orders Only [facility] Internal Medicine [address] [place] [address] Michael Smith MD [address] [place] [address] Social History Tobacco Use Types Packs/Day Years Used Date Smoking Tobacco: Never Assessed Comments Unknown Sex and Gender Information Value Date Recorded Sex Assigned at Not on file Legal Sex Female 4:52 AM RANGE SCIENTIST Gender Identity Not on file Sexual Orientation Not on file documented as of this encounter Plan of Treatment Not on file documented as of this encounter Visit Diagnoses Not on filedocumented in this encounter Additional Health Concerns Infection Onset Date Last Indicated Resolved Time R/O COVID-19 05/17/2020 05/20/2020 05/20/2020 3:21 PM RANGE SCIENTIST documented as of this encounter Care Teams Executive Assistant Relationship Specialty Start Date End Date Michael Smith MD [address] [place] [address] PCP - General 04/28/01 10/23/20 documented as of this encounter
--- OUTSIDE RECORDS SUMMARY | 2024-10-09 09:24 | XMS_ITS | Encounter Summary ---
Author Organization [facility] Address [address] [place] [address] Care Team Providers Care Ballet Company Artistic Director Name Role Phone Michael Smith MD Primary Care Provider [phone] Encounter Details Date Type Department Care Team (Late st Contact Info) Description 06/13/2007 Orders Only [facility] Internal Medicine [address] [place] [address] Michael Smith MD 300 [facility] [address] [place] [address] Social History Tobacco Use Types Packs/Day Years Used Date Smoking Tobacco: Never Assessed Comments Unknown Sex and Gender Information Value Date Recorded Sex Assigned at Not on file Legal Sex Female 4:52 AM ZIPPER MEASURER Gender Identity Not on file Sexual Orientation Not on file documented as of this encounter Progress Notes * Michael Smith MD - 09/21/2007 10:50 AM CDT TIME:11:49 am PATIENT`S HOME PHONE: PATIENT`S WORK PHONE: PATIENT`S INSURANCE: [employer] PPO WHO TOOK THE CALL: Giselle Gamino L GENERAL INFORMATION PATIENT STATUS: Established Patient. WHO CALLED: Pharmacy called. PHARMACY NUMBER: [phone] SECTION 1: REQUESTED ACTION nabila 06/13/07 at 11:49 am: MEDICATION REQUEST: MEDICATION REQUEST: Patient requests a refill. Amlodipine 5mg #30. last fill: 05/12/07/rll DOCTOR`S RESPONSE: toi 06/13/07 at 11:58 am MEDICATIONS: AMLODIPINE BESYLATE ORAL TABLET 5 MG, 1 Every Day, 30 Dispensed, 5 Fills, status: CONTINUED, 06/13/2007. FINAL ACTION: lamprl 06/13/07 at 04:12 pm Called pharmacy at 06/13/07 at 04:12 pm. voice mail/rll Electronically Signed by: Giselle Gamino on Wednesday, June 13, 2007 documented in this encounter Plan of Treatment Not on file documented as of this encounter Visit Diagnoses Not on filedocumented in this encounter Additional Health Concerns Infection Onset Date Last Indicated Resolved Time R/O COVID-19 05/17/2020 05/20/2020 05/20/2020 3:21 PM ZIPPER MEASURER documented as of this encounter Care Teams Ballet Company Artistic Director Relationship Specialty Start Date End Date Michael Smith MD [address] [facility] [address] [place] [address] PCP - General 04/28/01 10/23/20 documented as of this encounter
--- OUTSIDE RECORDS SUMMARY | 2024-10-09 09:24 | XMS_ITS | Encounter Summary ---
Author Organization [facility] Address [address] [place] [address] Care Team Providers Care Ground Crewman Mission Support Name Role Phone Michael Smith MD Primary Care Provider [phone] Encounter Details Date Type Department Care Team (Late st Contact Info) Description 01/30/2005 Outpatient Historical [facility] Internal Medicine [address] [place] [address] Michael Smith MD [address] [place] [address] Social History Tobacco Use Types Packs/Day Years Used Date Smoking Tobacco: Never Assessed Comments Unknown Sex and Gender Information Value Date Recorded Sex Assigned at Not on file Legal Sex Female 4:52 AM ZIPPER SLIDE ATTACHER Gender Identity Not on file Sexual Orientation Not on file documented as of this encounter Plan of Treatment Not on file documented as of this encounter Visit Diagnoses Not on filedocumented in this encounter Additional Health Concerns Infection Onset Date Last Indicated Resolved Time R/O COVID-19 05/17/2020 05/20/2020 05/20/2020 3:21 PM ZIPPER SLIDE ATTACHER documented as of this encounter Care Teams Ground Crewman Mission Support Relationship Specialty Start Date End Date Michael Smith MD [address] [place] [address] PCP - General 04/28/01 10/23/20 documented as of this encounter
--- OUTSIDE RECORDS SUMMARY | 2024-10-09 09:24 | XMS_ITS | Encounter Summary ---
Author Organization [facility] Address [address] [place] [address] Care Team Providers Care Camelid Fiber Sorter Name Role Phone Michael Smith MD Primary Care Provider [phone] Encounter Details Date Type Department Care Team (Late st Contact Info) Description 05/31/2007 Outpatient Historical [facility] Internal Medicine [address] [place] [address] Michael Smith MD [address] [place] [address] Social History Tobacco Use Types Packs/Day Years Used Date Smoking Tobacco: Never Assessed Comments Unknown Sex and Gender Information Value Date Recorded Sex Assigned at Not on file Legal Sex Female 4:52 AM HEAVY EQUIPMENT OPERATOR/PAVER Gender Identity Not on file Sexual Orientation Not on file documented as of this encounter Plan of Treatment Not on file documented as of this encounter Visit Diagnoses Not on filedocumented in this encounter Additional Health Concerns Infection Onset Date Last Indicated Resolved Time R/O COVID-19 05/17/2020 05/20/2020 05/20/2020 3:21 PM HEAVY EQUIPMENT OPERATOR/PAVER documented as of this encounter Care Teams Camelid Fiber Sorter Relationship Specialty Start Date End Date Michael Smith MD [address] [place] [address] PCP - General 04/28/01 10/23/20 documented as of this encounter
--- OUTSIDE RECORDS SUMMARY | 2024-10-09 09:24 | XMS_ITS | Encounter Summary ---
Author Organization [facility] Address [address] [place] [address] Care Team Providers Care Transfer Iron Operator Name Role Phone Michael Smith MD Primary Care Provider [phone] Encounter Details Date Type Department Care Team (Late st Contact Info) Description 03/08/2006 Outpatient Historical [facility] Internal Medicine [address] [place] [address] Michael Smith MD [address] [place] [address] Social History Tobacco Use Types Packs/Day Years Used Date Smoking Tobacco: Never Assessed Comments Unknown Sex and Gender Information Value Date Recorded Sex Assigned at Not on file Legal Sex Female 4:52 AM SHOT GRINDER OPERATOR Gender Identity Not on file Sexual Orientation Not on file documented as of this encounter Plan of Treatment Not on file documented as of this encounter Visit Diagnoses Not on filedocumented in this encounter Additional Health Concerns Infection Onset Date Last Indicated Resolved Time R/O COVID-19 05/17/2020 05/20/2020 05/20/2020 3:21 PM SHOT GRINDER OPERATOR documented as of this encounter Care Teams Transfer Iron Operator Relationship Specialty Start Date End Date Michael Smith MD [address] [place] [address] PCP - General 04/28/01 10/23/20 documented as of this encounter
--- OUTSIDE RECORDS SUMMARY | 2024-10-09 09:24 | XMS_ITS | Encounter Summary ---
Author Organization [facility] Address [address] [place] [address] Care Team Providers Care Thaw Shed Heater Tender Name Role Phone Michael Smith MD Primary Care Provider [phone] Encounter Details Date Type Department Care Team (Late st Contact Info) Description 02/19/2004 Outpatient Historical [facility] Internal Medicine [address] [place] [address] Michael Smith MD [address] [place] [address] Social History Tobacco Use Types Packs/Day Years Used Date Smoking Tobacco: Never Assessed Comments Unknown Sex and Gender Information Value Date Recorded Sex Assigned at Not on file Legal Sex Female 4:52 AM ELECTROSTATIC POWDER COATING TECHNICIAN Gender Identity Not on file Sexual Orientation Not on file documented as of this encounter Plan of Treatment Not on file documented as of this encounter Visit Diagnoses Not on filedocumented in this encounter Additional Health Concerns Infection Onset Date Last Indicated Resolved Time R/O COVID-19 05/17/2020 05/20/2020 05/20/2020 3:21 PM ELECTROSTATIC POWDER COATING TECHNICIAN documented as of this encounter Care Teams Thaw Shed Heater Tender Relationship Specialty Start Date End Date Michael Smith MD [address] [place] [address] PCP - General 04/28/01 10/23/20 documented as of this encounter
--- OUTSIDE RECORDS SUMMARY | 2024-10-09 09:25 | XMS_ITS | Encounter Summary ---
Author Organization [facility] Address [address] [place] [address] Care Team Providers Care Owner E Commerce Company Name Role Phone Michael Smith MD Primary Care Provider [phone] Encounter Details Date Type Department Care Team (Late st Contact Info) Description 12/03/2005 Outpatient Historical [facility] Internal Medicine [address] [place] [address] Michael Smith MD 300 [facility] [address] [place] [address] Social History Tobacco Use Types Packs/Day Years Used Date Smoking Tobacco: Never Assessed Comments Unknown Sex and Gender Information Value Date Recorded Sex Assigned at Not on file Legal Sex Female 4:52 AM SUPERVISOR ASBESTOS REMOVAL Gender Identity Not on file Sexual Orientation Not on file documented as of this encounter Last Filed Vital Signs Vital Sign Reading Time Taken Comments Blood Pressure 130/80 12/03/2005 3:45 PM CDT Pulse 78 12/03/2005 3:45 PM CDT Temperature 37.2 C (99 F) 12/03/2005 3:45 PM CDT Respiratory Rate - - Oxygen Saturation - - Inhaled Oxygen Concentration - - Weight 82.1 kg (181 lb) 12/03/2005 3:45 PM CDT Height - - Body Mass Index - - documented in this encounter Plan of Treatment Not on file documented as of this encounter Visit Diagnoses Not on filedocumented in this encounter Additional Health Concerns Infection Onset Date Last Indicated Resolved Time R/O COVID-19 05/17/2020 05/20/2020 05/20/2020 3:21 PM SUPERVISOR ASBESTOS REMOVAL documented as of this encounter Care Teams Owner [employer] Relationship Specialty Start Date End Date Michael Smith MD [address] [facility] [address] [place] [address] PCP - General 04/28/01 10/23/20 documented as of this encounter
[2024-10-09 09:34] LABS: Add Urine Microscopic? NO; Appearance Urine Clear (Clear); Bilirubin Urine Negative (Negative); Blood Urine Negative (Negative); Color Urine Yellow (Yellow); Glucose Urine UA 3+ mg/dL (Negative); Ketones Urine Negative (Negative); Leukocyte Esterase Ur Negative LEU/UL (Negative); Nitrate Urine Negative (Negative); Protein Urine Negative (Negative); Specific Grav Ur 1.014 (1.001-1.035); pH Urine 6.5 (5.0-9.0)
[2024-10-09 09:51] LABS: Alanine Aminotransferase 16 U/L (6-35); Albumin Level 4.8 g/dL (3.5-5.1); Alkaline Phosphatase 78 U/L (38-126); Anion Gap 7 mmol/L (4-12); Aspartate Amino Transferase 29 U/L (14-36); Bilirubin,Total 0.6 mg/dL (0.2-1.3); Blood Urea Nitrogen 22 mg/dL (7-17); Calcium 9.9 mg/dL (8.4-10.2); Carbon Dioxide 30 mmol/L (22-30); Chloride 105 mmol/L (98-107); Cholesterol 174 mg/dL (0-200); Estimated Glomerular Filt Rate 52; Glucose 124 mg/dL (65-110); HDL Direct 86 mg/dL; Hemoglobin A1C 6.4 % (<5.7); Potassium 4.1 mmol/L (3.4-5.0); Sodium 142 mmol/L (137-145); Triglycerides 79 mg/dL (<150)
[2024-10-09 10:02] LABS: LDL Cholesterol Direct 52 mg/dL
[2024-10-09 10:23] LABS: Thyroid Stimulating Hormone 0.333 uIU/mL (0.465-4.680)
[2024-10-09 10:30] LABS: Free T4 Free Thyroxine 1.81 ng/dL (0.78-2.19); Vitamin D 25 Hydroxy 46.6 ng/mL
== END 2024-10-09 09:08 | disposition home or self-care (01) ==
PROVIDERS: PCP Internal Medicine; Visit Provider Internal Medicine
DX: E78.2 Mixed hyperlipidemia (principal); Z79.899 Other long term (current) drug therapy; E55.9 Vitamin D deficiency, unspecified; E03.9 Hypothyroidism, unspecified; E11.9 Type 2 diabetes mellitus without complications; I10 Essential (primary) hypertension
CPT/HCPCS: 36415; 80053; 80061; 81003; 82306; 83036; 84439; 84443

== ENCOUNTER 2025-02-22 09:55 | Outpatient (CLI) | payer MEDICARE, SELFPAY ==
--- OUTSIDE RECORDS SUMMARY | 2025-02-21 13:10 | XMS_ITS | Encounter Summary ---
Author Organization [facility] Address [address] [place] [address] Care Team Providers Care Briquette Machine Operator Helper Name Role Phone Roxanne Werner MD Unavailable [phone] Ata Bronson DPM Unavailable Meir Ibrahim MD Primary Care Provider [phone] Encounter Details Date Type Department Care Team (Late st Contact Info) Description 02/21/2025 1:10 PM CDT Lab [address] [address] PAF (paroxysmal atrial fibrillation) Social History Tobacco Use Types Packs/Day Years [...] staff should administer the PHQ-9) 0 01/17/2024 Personal Safety Answer Date Recorded Have you ever been in or are you currently in a harmful physical or emotional relationship or is someone making you feel afraid or unsafe? Denies 02/09/2025 Education Answer Date Recorded What is the highest level of school you have completed or the highest degree you have received? 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 file Not on file documented as of this encounter Plan of Treatment Not on file documented as of this encounter Procedures Procedure Name Priority Date/Time Associated Diagnosis Comments PROTIME-INR Routine 02/21/2025 1:19 PM CDT PAF (paroxysmal atrial fibrillation) documented in this encounter Results * (ABNORMAL) Protime-INR (02/21/2025 1:19 PM CDT) PT 22.7(H) 10.2 - 13.5 sec INR 2.04(H) 0.90 - 1.20 KEREN GAMEZ Comment: Interpretive data Oral anticoagulant therapeutic ranges: Venous thromboembolism prophylaxis or treatment: 2.0-3.0 CARDIOLOGY Standard range: 2.0-3.0 High-intensity range: 2.5-3.5 Refer to indication-specific guidelines for appropriate target ranges for prosthetic heart valve replacement. Current interpretive data was last revised on 2019. Blood 02/21/2025 1:19 PM CDT 02/21/2025 1:19 PM CDT Narrative KEREN GAMEZ - 02/21/2025 1:59 PM CDT Patient is just starting on warfarin and will have additional lab that need drawn. us Roxanne Werner MD LAB BLOOD ORDERABLES F inal Result KEREN GAMEZ [address] [place] [address] documented in this encounter Visit Diagnoses Diagnosis PAF (paroxysmal atrial fibrillation) Atrial fibrillation documented in this encounter Care Teams Briquette Machine Operator Helper Relationship Specialty Start Date End Date Meir Ibrahim MD [address] [place] [address] PCP - General Internal Medicine 01/17/25 Roxanne Werner MD [address] [place] [address] Consulting Physician Cardiology 07/31/21 Ata Bronson DPM [address] [place] [address] Consulting Physician Foot and Ankle Surg 07/31/21 documented as of this encounter
--- NOTE | ~2025-02-22 | XR_ITS ---
EXAMINATION: XR abdomen/kub 1V, 02/22/2025 10:18 CDT HISTORY: R10.9 - Unspecified abdominal pain COMPARISON: No comparisons available. Technique: 3 view. Findings: Bowel gas pattern unremarkable. No obstruction. No free air. No abnormal calcifications No acute osseous abnormality. Impression: 1. No acute abnormality. Reviewed, dictated and finalized at location P. Impression: 1. No acute abnormality.
--- NOTE | ~2025-02-22 | XR_ITS ---
EXAMINATION: XR chest 2V, 02/22/2025 10:18 CDT HISTORY: PA and LATERAL COMPARISON: No comparisons available. Technique: 2 views obtained. Findings: The lungs are clear, no effusion. No pneumothorax. Heart is normal size. Mediastinal and hilar contours are within normal limits. Bony thorax no acute abnormality. Impression: No acute cardiopulmonary abnormality. Reviewed, dictated and finalized at location P. Impression: No acute cardiopulmonary abnormality.
[2025-02-22 10:36] LABS: Hematocrit 38.6 % (37.0-47.0); Hemoglobin 12.5 g/dL (12.0-15.0); Immature Granulocyte Percent A 0.3 % (0-0.5); Lymphocytes Absolute Auto 1.32 K/mm3 (0.9-3.2); Mean Corpuscular HGB Conc 32.4 g/dl (32-36); Mean Corpuscular Hemoglobin 27.4 pg (26-34); Mean Corpuscular Volume 84.6 fl (80-100); Nucleated Red Blood Cells Absolute Auto 0.000 K/mm3 (0.0-0.012); Nucleated Red Blood Cells Perc 0.0 % (0.0-0.2); Platelet Count Result 287 k/mm3 (150-375); Red Blood Count 4.56 M/mm3 (4.2-5.4); White Blood Count 7.4 K/mm3 (4.5-10.0)
[2025-02-22 10:45] LABS: Add Urine Microscopic? YES; Appearance Urine Clear (Clear); Glucose Urine UA 3+ mg/dL (Negative); Leukocyte Esterase Ur Negative LEU/UL (Negative); Nitrate Urine Negative (Negative); Non Pathogenic Casts 0-2; Specific Grav Ur 1.019 (1.001-1.035)
[2025-02-22 11:04] LABS: Alanine Aminotransferase 21 U/L (6-35); Albumin Level 4.3 g/dL (3.5-5.1); Alkaline Phosphatase 83 U/L (38-126); Anion Gap 9 mmol/L (4-12); Aspartate Amino Transferase 39 U/L (14-36); Bilirubin,Total 0.9 mg/dL (0.2-1.3); Blood Urea Nitrogen 18 mg/dL (7-17); Calcium 9.2 mg/dL (8.4-10.2); Carbon Dioxide 28 mmol/L (22-30); Chloride 106 mmol/L (98-107); Cholesterol 127 mg/dL (0-200); Estimated Glomerular Filt Rate 56; Glucose 118 mg/dL (65-110); HDL Direct 60 mg/dL; Potassium 3.6 mmol/L (3.4-5.0); Sodium 143 mmol/L (137-145); Total Protein 7.8 g/dL (6.3-8.2); Triglycerides 45 mg/dL (<150)
[2025-02-22 11:13] LABS: MALB Creatinine Ratio 195.4 mg/g (0-30)
--- OUTSIDE RECORDS SUMMARY | 2025-02-22 11:14 | XMS_ITS | Encounter Summary ---
Author Organization [facility] Address [address] [place] [address] Care Team Providers Care Geological Science Teacher Name Role Phone Michael Smith MD Primary Care Provider [phone] Encounter Details Date Type Department Care Team (Late st Contact Info) Description 08/18/2007 Outpatient Historical [facility] Michael Smith MD [address] [place] [address] Edema Social History Tobacco Use Types Packs/Day Years Used Date Smoking Tobacco: Never Assessed Comments Unknown Sex and Gender Information Value Date Recorded Sex Assigned at Not on file Legal Sex Female 4:52 AM INFORMATION SECURITY ARCHITECT Gender Identity Not on file Sexual Orientation Not on file documented as of this encounter Plan of Treatment Not on file documented as of this encounter Visit Diagnoses Diagnosis Edema documented in this encounter Additional Health Concerns Infection Onset Date Last Indicated Resolved Time R/O COVID-19 05/17/2020 05/20/2020 05/20/2020 3:21 PM INFORMATION SECURITY ARCHITECT documented as of this encounter Care Teams Geological Science Teacher Relationship Specialty Start Date End Date Michael Smith MD [address] [place] [address] PCP - General 04/28/01 10/23/20 documented as of this encounter
--- OUTSIDE RECORDS SUMMARY | 2025-02-22 11:14 | XMS_ITS | Encounter Summary ---
Author Organization [facility] Address [address] [place] [address] Care Team Providers Care Rail Washer Name Role Phone Michael Smith MD Primary Care Provider [phone] Encounter Details Date Type Department Care Team (Late st Contact Info) Description 04/06/2007 Orders Only [facility] Internal Medicine [address] [place] [address] Michael Smith MD 300 [facility] [address] [place] [address] Social History Tobacco Use Types Packs/Day Years Used Date Smoking Tobacco: Never Assessed Comments Unknown Sex and Gender Information Value Date Recorded Sex Assigned at Not on file Legal Sex Female 4:52 AM EMULSION COATER Gender Identity Not on file Sexual Orientation Not on file documented as of this encounter Progress Notes * Michael Smith MD - 09/22/2007 8:37 PM CDT TIME:10:00 am PATIENT`S HOME PHONE: PATIENT`S WORK PHONE: PATIENT`S INSURANCE: [employer] PPO WHO TOOK THE CALL: Giselle Gamino L GENERAL INFORMATION PATIENT STATUS: Established Patient. WHO CALLED: Pharmacy called. PHARMACY NUMBER: [phone] SECTION 1: REQUESTED ACTION nabila 04/06/07 at 10:00 am: MEDICATION REQUEST: MEDICATION REQUEST: Patient requests a refill. Levothyroxine 112mcg #30. last fill: 03/03/07/rll DOCTOR`S RESPONSE: toi 04/06/07 at 01:48 pm MEDICATIONS: LEVOXYL ORAL TABLET 112 MCG TABLETS, Take one tab po every day, 30 Dispensed, 6 Fills, 30 Duration/Days Supply, status: CONTINUED, 04/06/2007. FINAL ACTION: lukasrl 04/06/07 at 03:58 pm Spoke with patient 04/06/07 at 04:00 pm. scheduled for f/u on 04/11/07/rlora Called pharmacy at 04/06/07 at 03:58 pm. voice mail/rll Electronically Signed by: Giselle Gamino on Wednesday, April 06, 2007 documented in this encounter Plan of Treatment Not on file documented as of this encounter Visit Diagnoses Not on filedocumented in this encounter Additional Health Concerns Infection Onset Date Last Indicated Resolved Time R/O COVID-19 05/17/2020 05/20/2020 05/20/2020 3:21 PM EMULSION COATER documented as of this encounter Care Teams Rail Washer Relationship Specialty Start Date End Date Michael Smith MD 300 [facility] [address] [place] [address] PCP - General 04/28/01 10/23/20 documented as of this encounter
--- OUTSIDE RECORDS SUMMARY | 2025-02-22 11:14 | XMS_ITS | Encounter Summary ---
Author Organization [facility] Healthcare Address [address] [place] [address] Care Team Providers Care Utility Bill Collector Name Role Phone Roxanne Werner MD Unavailable [phone] Ata Bronson DPM Unavailable [phone] Karolyn Evans NP Primary Care Provider [phone] Meir Ibrahim MD Primary Care Provider [phone] Encounter Details Date Type Department Care Team (Late st Contact Info) Description 01/01/2025 Results Follow-Up [place] Web Systems Developer [address] [place] [address] Laura Machado MA Protime-INR Social History [...] making you feel afraid or unsafe? Denies 12/26/2024 Education Answer Date Recorded What is the highest level of school you have completed or the highest degree you have received? 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 file Not on file documented as of this encounter Plan of Treatment Not on file documented as of this encounter Visit Diagnoses Not on filedocumented in this encounter Care Teams Utility Bill Collector Relationship Specialty Start Date End Date Karolyn Evans NP [address] [facility] [address] [place] [address] PCP - General Family Medicine 11/23/24 01/16/25 Meir Ibrahim MD [address] [facility] [address] [place] [address] PCP - General Internal Medicine 01/17/25 Roxanne Werner MD [address] [place] [address] Consulting Physician Cardiology 07/31/21 Ata Bronson DPM [address] [place] [address] Consulting Physician Foot and Ankle Surg 07/31/21 documented as of this encounter
--- OUTSIDE RECORDS SUMMARY | 2025-02-22 11:14 | XMS_ITS | Clinical Summary ---
Author Organization [facility] Administrative Offices Address [address] [place] [address] Care Team Providers Care Information Technology Consultant Name Role Phone Unavailable Primary Care Provider [...] Need for prophylactic vaccin ation with combined bjlylsnczz-upxoihb-zuktuttib (DTP) vaccine 03/08/2006 12/17/2007 Benign neoplasm of [...] on file Legal Sex Female 4:52 AM VIBRATING SCREED OPERATOR Gender Identity Not on file Sexual Orientation Not on file Occupation Industry Job Start Date Job End Date Not on file Not on file Not on file Not on file Last Filed Vital Signs Vital Sign Reading Time Taken Comments Blood Pressure 128/84 06/29/2019 8:24 AM VIBRATING SCREED OPERATOR Pulse 67 05/30/2019 1:31 PM VIBRATING SCREED OPERATOR Temperature 36.9 C (98.5 F) 05/30/2019 1:16 PM VIBRATING SCREED OPERATOR Respiratory Rate 18 05/30/2019 1:31 PM VIBRATING SCREED OPERATOR Oxygen Saturation 95% 05/30/2019 1:31 PM VIBRATING SCREED OPERATOR Inhaled Oxygen Concentration - - Weight 91.2 kg (201 lb) 06/29/2019 8:24 AM VIBRATING SCREED OPERATOR Height 170.2 cm (5' 7) 06/29/2019 8:24 AM VIBRATING SCREED OPERATOR Body Mass Index 31.48 06/29/2019 8:24 AM VIBRATING SCREED OPERATOR Plan of Treatment Health Maintenance Due Date Last Done Comments ZOSTER VACCINE (1 of 2) 02/02/1998 RSV VACCINE (60+ or ) (1 - 1-dose 75+ series) 02/02/2023 COLORECTAL SCREENING 07/16/2023 07/15/2020, 05/30/2019, 05/30/2019, Additional history exists INFLUENZA VACCINE (#1) 2024 7, 03/05/2015, 03/05/2015, Additional history exists OSTEOPOROSIS SCREENING 08/26/2025 1, 06/11/2015, 07/16/2008 DTAP/TDAP/TD VACCINES (3 - T d or Tdap) 05/27/2028 05/27/2018, 03/08/2006 PNEUMOCOCCAL VACCINE 50+ YEARS Completed 05/17/2015 , 05/21/2014 Medical Devices Implanted Type Area Type Copy Examiner Device Identifier Shelf Expiration Date Model / Serial / Lot Log [id number] - Bladder Slings And Tapes - 1 - Sling Desara System Rigoberto-Ds01 Implanted:Qty: 1 on 12/31/2009 at [facility] Sling N/A: Vagina [employer] 07/08/2014 RIGOBERTO-DS01 / / [id number] Description:vaginal apex Log [id number] - Bladder Slings And Tapes - 1 - Sling Desara System Rigoberto-Ds01 Implanted:Qty: 1 on 12/31/2009 at [facility] Sling N/A: Urethra [employer] 11/07/2012 RIGOBERTO-DS01 / / [id number] Description:mid urethra Procedures Procedure Name Priority Date/Time Associated Diagnosis Comments COLONOSCOPY REPORT 05/30/2019 1: 16 PM VIBRATING SCREED OPERATOR XR DEXA BONE DENSITY AXIAL 1 OR MORE SITES Routine 06/11/2015 9:09 AM VIBRATING SCREED OPERATOR Age-related osteoporosis without current pathological fracture from Last 3 Months or Most Recently Relevant to Health Maintenance Results * COLONOSCOPY REPORT (05/30/2019 1:16 PM VIBRATING SCREED OPERATOR) Narrative Procedure Note John Prado MD - 05/30/2019 1:15 PM CST [facility] Endoscopy Patient Name: Arabella Hankins Procedure Date: [...] of Addenda: [address]; [place] [address] John Prado MD GI PROCEDURE ORDERABLES Final Re sult * XR DEXA BONE DENSITY AXIAL 1 OR MORE SITES (06/11/2015 9:09 AM VIBRATING SCREED OPERATOR) Anatomical Region Laterality Modality Digital Radiogra phy 06/11/2015 8:58 AM VIBRATING SCREED OPERATOR Narrative 06/11/2015 11:50 AM VIBRATING SCREED OPERATOR XR DEXA BONE DENSITY AXIAL 1 OR MORE SITES Dictated from Location 1 ([facility]) HISTORY 65 year-old F with post menopausal symptoms. PROCEDURE: Planar images of the lumbar spine and hip(s) using a NEURONIX DEXA scanner for bone mineral density determination (BMD). Compared to the prior bone density performed 07/16/2008 FINDINGS: Lumbar Spine (L1-L4) 1.494 gm/cm2, T-score: +2.6 Prior: 1.421 gm/cm2, +5.1% change Left femoral neck 1.109 gm/cm2, T-score: +0.5 Prior: 1.164 gm/cm2, -4.7% change Right femoral neck 1.116 gm/cm2, T-score: +0.6 Prior: 1.196 gm/cm2, -6.7% change Comments: None. Detailed report placed in Imaging Section of [facility] EMR. IMPRESSION Normal BMD. Lumbar Spine [...] OR MORE SITES Dictated from Location [address] ([facility]) HISTORY 65 year-old F with post menopausal symptoms. PROCEDURE: Planar images of the lumbar spine and hip(s) using a NEURONIX DEXA scanner for bone mineral density determination (BMD). Compared to the prior bone density performed 07/16/2008 FINDINGS: Lumbar Spine (L1-L4) 1.494 gm/cm2, T-score: +2.6 Prior: 1.421 gm/cm2, +5.1% change Left femoral neck 1.109 gm/cm2, T-score: +0.5 Prior: 1.164 gm/cm2, -4.7% change Right femoral neck 1.116 gm/cm2, T-score: +0.6 Prior: 1.196 gm/cm2, -6.7% change Comments: None. Detailed report placed in Imaging Section of [facility] EMR. IMPRESSION Normal BMD. Lumbar Spine [...] Advance Directives For more information, please contact: [phone] Documents on File Type Date Recorded Patient Safety Lead Expl anation Advance Directive POA 12/31/2009 5:41 [...]
--- OUTSIDE RECORDS SUMMARY | 2025-02-22 11:14 | XMS_ITS | Encounter Summary ---
Author Organization [facility] Address [address] [place] [address] Care Team Providers Care Alley Worker Name Role Phone Michael Smith MD Primary Care Provider [phone] Encounter Details Date Type Department Care Team (Late st Contact Info) Description 06/13/2007 Orders Only [facility] Internal Medicine [address] [place] [address] Michael Smith MD [address] [facility] [address] [place] [address] Social History Tobacco Use Types Packs/Day Years Used Date Smoking Tobacco: Never Assessed Comments Unknown Sex and Gender Information Value Date Recorded Sex Assigned at Not on file Legal Sex Female 4:52 AM MANAGER OF ENVIRONMENTAL SERVICES Gender Identity Not on file Sexual Orientation Not on file documented as of this encounter Progress Notes * Michael Smith MD - 09/21/2007 10:50 AM CDT TIME:11:49 am PATIENT`S HOME PHONE: PATIENT`S WORK PHONE: PATIENT`S INSURANCE: [employer] WHO TOOK THE CALL: Giselle Gamino L GENERAL INFORMATION PATIENT STATUS: Established Patient. WHO CALLED: Pharmacy called. PHARMACY NUMBER: [phone] SECTION 1: REQUESTED ACTION nabila 06/13/07 at [...] 05/17/2020 05/20/2020 05/20/2020 3:21 PM MANAGER OF ENVIRONMENTAL SERVICES documented as of this encounter Care Teams Alley Worker Relationship Specialty Start Date End Date Michael Smith MD [address] [facility] [address] [address] PCP - General 04/28/01 10/23/20 documented as of this encounter
--- OUTSIDE RECORDS SUMMARY | 2025-02-22 11:14 | XMS_ITS | Encounter Summary ---
Author Organization [facility] Health Address [address] [place] [address] Care Team Providers Care Delicatessen Store Manager Name Role Phone Michael Smith MD Primary Care Provider Encounter Details Date Type Department Care Team (Late st Contact Info) Description 06/14/2018 [facility] Outpatient Visit [facility] [address] [place] [address] [place] [address] [address] Social History Tobacco Use Types [...] on filedocumented in this encounter Care Teams Delicatessen Store Manager Relationship Specialty Start Date End Date Michael Smith MD PCP - General Internal Medicine 10/13/12 documented as of this encounter
--- OUTSIDE RECORDS SUMMARY | 2025-02-22 11:14 | XMS_ITS | Encounter Summary ---
Author Organization [facility] Address [address] [place] [address] Care Team Providers Care Survey Rodman Name Role Phone Michael Smith MD Primary Care Provider [phone] Encounter Details Date Type Department Care Team (Late st Contact Info) Description 08/18/2007 Outpatient Historical [facility] Internal Medicine [address] [place] [address] Michael Smith MD [address] [place] [address] Social History Tobacco Use Types Packs/Day Years Used Date Smoking Tobacco: Never Assessed Comments Unknown Sex and Gender Information Value Date Recorded Sex Assigned at Not on file Legal Sex Female 4:52 AM COMBINATION TECHNICIAN Gender Identity Not on file Sexual Orientation Not on file documented as of this encounter Plan of Treatment Not on file documented as of this encounter Visit Diagnoses Not on filedocumented in this encounter Additional Health Concerns Infection Onset Date Last Indicated Resolved Time R/O COVID-19 05/17/2020 05/20/2020 05/20/2020 3:21 PM COMBINATION TECHNICIAN documented as of this encounter Care Teams Survey Rodman Relationship Specialty Start Date End Date Michael Smith MD [address] [place] [address] PCP - General 04/28/01 10/23/20 documented as of this encounter
--- OUTSIDE RECORDS SUMMARY | 2025-02-22 11:14 | XMS_ITS | Encounter Summary ---
Author Organization [facility] Address [address] [place] [address] Care Team Providers Care Pharmacist'S Aide Name Role Phone Michael Smith MD Primary Care Provider [phone] Encounter Details Date Type Department Care Team (Late st Contact Info) Description 04/11/2007 Orders Only [facility] Internal Medicine [address] [place] [address] Michael Smith MD [address] [facility] [address] [place] [address] Social History Tobacco Use Types Packs/Day Years Used Date Smoking Tobacco: Never Assessed Comments Unknown Sex and Gender Information Value Date Recorded Sex Assigned at Not on file Legal Sex Female 4:52 AM STRENGTH AND CONDITIONING COACH Gender Identity Not on file Sexual Orientation [...] with her activity level. CURRENT MEDICATION LIST: [id number] ORAL TABLET 50-325-40 MG, Take one tablet [...] and adenoids. PHYSICAL EXAMINATION: CONSTITUTIONAL: GENERAL APPEARANCE: -Nigerian female, normal body habitus. NECK/THYROID: TOTAL THYROIDECTOMY. [...] SPECIALTY REFERRAL: PODIATRY Dr. Ata Reeder: ph: [phone] fax: [phone] [place]: ph: [phone] fax: [phone] [place]: ph: [phone] fax: [phone].Sent to [facility]. [facility]. Electronically Signed by: Michael Smith MD on Friday, May 11, 2007 documented in this encounter Plan of Treatment Not on file documented as of this encounter Visit Diagnoses Not on filedocumented in this encounter Additional Health Concerns Infection Onset Date Last Indicated Resolved Time R/O COVID-19 05/17/2020 05/20/2020 05/20/2020 3:21 PM STRENGTH AND CONDITIONING COACH documented as of this encounter Care Teams Pharmacist'S Aide Relationship Specialty Start Date End Date Michael Smith MD [address] [facility] [address] [place] [address] PCP - General 04/28/01 10/23/20 documented as of this encounter
--- OUTSIDE RECORDS SUMMARY | 2025-02-22 11:14 | XMS_ITS | Encounter Summary ---
Author Organization [facility] Address [address] [place] [address] Care Team Providers Care Nail Making Machine Tender Name Role Phone Michael Smith MD Primary Care Provider [phone] Encounter Details Date Type Department Care Team (Late st Contact Info) Description 08/18/2007 Outpatient Historical [facility] Internal Medicine [address] [place] [address] Michael Smith MD [address] [place] [address] Social History Tobacco Use Types Packs/Day Years Used Date Smoking Tobacco: Never Assessed Comments Unknown Sex and Gender Information Value Date Recorded Sex Assigned at Not on file Legal Sex Female 4:52 AM WEB CONTENT DIRECTOR Gender Identity Not on file Sexual Orientation Not on file documented as of this encounter Plan of Treatment Not on file documented as of this encounter Visit Diagnoses Not on filedocumented in this encounter Additional Health Concerns Infection Onset Date Last Indicated Resolved Time R/O COVID-19 05/17/2020 05/20/2020 05/20/2020 3:21 PM WEB CONTENT DIRECTOR documented as of this encounter Care Teams Nail Making Machine Tender Relationship Specialty Start Date End Date Michael Smith MD [address] [place] [address] PCP - General 04/28/01 10/23/20 documented as of this encounter
--- OUTSIDE RECORDS SUMMARY | 2025-02-22 11:14 | XMS_ITS | Encounter Summary ---
Author Organization [facility] Address [address] [place] [address] Care Team Providers Care Call Worker Person Name Role Phone Michael Smith MD Primary Care Provider [phone] Encounter Details Date Type Department Care Team (Latest Contact Info) Description 11/02/2006 Outpatient Historical [facility] Jonel Vásquez MD [address] [facility] [address] [place] [address] Other Screening Mammogram (Primary Dx) Social History Tobacco Use Types Packs/Day Years Used Date Smoking Tobacco: Never Assessed Comments Unknown Sex and Gender Information Value Date Recorded Sex Assigned at Not on file Legal Sex Female 4:52 AM WIRE ROPE SLING MAKER Gender Identity Not on file Sexual Orientation Not on file documented as of this encounter Plan of Treatment Not on file documented as of this encounter Visit Diagnoses Diagnosis Other screening mammogram- Primary documented in this encounter Additional Health Concerns Infection Onset Date Last Indicated Resolved Time R/O COVID-19 05/17/2020 05/20/2020 05/20/2020 3:21 PM WIRE ROPE SLING MAKER documented as of this encounter Care Teams Call Worker Person Relationship Specialty Start Date End Date Michael Smith MD [address] [facility] [address] [place] [address] PCP - General 04/28/01 10/23/20 documented as of this encounter
--- OUTSIDE RECORDS SUMMARY | 2025-02-22 11:14 | XMS_ITS | Encounter Summary ---
Author Organization [facility] Healthcare Address [address] [place] [address] Care Team Providers Care Commodities Trader Name Role Phone Roxanne Werner MD Unavailable [phone] Ata Bronson DPM Unavailable Meir Ibrahim MD Primary Care Provider [phone] Encounter Details Date Type Department Care Team (Late st Contact Info) Description 02/21/2025 Results Follow-Up [place] [facility] Chief Inspector [address] [place] [address] Laura Machado MA Protime-INR Social History [...] on file Legal Sex Female 2:53 PM SALES OUTFITTER Gender Identity Female 08/19/2020 7:43 PM CDT Sexual Orientation Straight 09/24/2020 8: 49 AM CDT 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 documented in this encounter Plan of Treatment Not on file documented as of this encounter Visit Diagnoses Not on filedocumented in this encounter Discontinued Medications Medication Sig Discontinue Reason Start Date End Da te warfarin (COUMADIN) 1 mg tabletIndications:PAF (paroxysmal atrial fibrillation) Take 1 tablet (1 mg total) by mouth daily Alternate therapy 11/02/2024 02/22/2025 warfarin (COUMADIN) 4 mg tabletIndications:PAF (paroxysmal atrial fibrillation) Take 1 tablet (4 mg total) by mouth daily Alternate therapy 11/02/2024 02/22/2025 warfarin (COUMADIN) 3 mg tablet Take 1 tablet (3 mg total) by mouth daily Alternate therapy 12/08/2024 02/22/2025 documented as of this encounter Care Teams Commodities Trader Relationship Specialty Start Date End Date Meir Ibrahim MD [address] [place] [address] PCP - General Internal Medicine 01/17/25 Roxanne Werner MD [address] [place] [address] Consulting Physician Cardiology 07/31/21 Ata Bronson DPM [address] [place] [address] Consulting Physician Foot and Ankle Surg 07/31/21 documented as of this encounter
--- OUTSIDE RECORDS SUMMARY | 2025-02-22 11:14 | XMS_ITS | Encounter Summary ---
Author Organization [facility] Healthcare Address [address] [place] [address] Care Team Providers Care Vice Squad Police Officer Name Role Phone Roxanne Werner MD Unavailable [phone] Ata Bronson DPM Unavailable Meir Ibrahim MD Primary Care Provider [phone] Encounter Details Date Type Department Care Team (Late st Contact Info) Description 02/14/2025 Results Follow-Up [place] Grounds Maintenance Worker [address] [address] Roxanne Werner MD [address] [place] [address] Protime-INR, Basic metabolic panel, eGFR Social History Tobacco Use Types Packs/Day Years [...] on file Legal Sex Female 2:53 PM DUST CONTROL ENGINEER Gender Identity Female 08/19/2020 7:43 PM CDT Sexual Orientation Straight 09/24/2020 8: 49 AM CDT 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
--- OUTSIDE RECORDS SUMMARY | 2025-02-22 11:14 | XMS_ITS | Encounter Summary ---
Author Organization [facility] Address [address] [place] [address] Care Team Providers Care Fire Sprinkler Inspector Name Role Phone Michael Smith MD Primary Care Provider [phone] Encounter Details Date Type Department Care Team (Latest Contact Info) Description 05/13/2006 Outpatient Historical [facility] Jonel Mulligan MD [address] [facility] [address] [place] [address] Abnormal Mammogram, Unspecified (Primary Dx) Social History Tobacco Use Types Packs/Day Years Used Date Smoking Tobacco: Never Assessed Comments Unknown Sex and Gender Information Value Date Recorded Sex Assigned at Not on file Legal Sex Female 4:52 AM CONTRACT RECRUITER Gender Identity Not on file Sexual Orientation Not on file documented as of this encounter Plan of Treatment Not on file documented as of this encounter Visit Diagnoses Diagnosis Abnormal mammogram, unspecified- Primary documented in this encounter Additional Health Concerns Infection Onset Date Last Indicated Resolved Time R/O COVID-19 05/17/2020 05/20/2020 05/20/2020 3:21 PM CONTRACT RECRUITER documented as of this encounter Care Teams Fire Sprinkler Inspector Relationship Specialty Start Date End Date Michael Smith MD [address] [facility] [address] [place] [address] PCP - General 04/28/01 10/23/20 documented as of this encounter
--- OUTSIDE RECORDS SUMMARY | 2025-02-22 11:14 | XMS_ITS | Encounter Summary ---
Author Organization [facility] Address [address] [place] [address] Care Team Providers Care Information Security Engineer Name Role Phone Michael Smith MD Primary Care Provider [phone] Encounter Details Date Type Department Care Team (Late st Contact Info) Description 10/05/2007 Outpatient Historical [facility] Internal Medicine [address] [place] [address] Michael Smith MD [address] [place] [address] Social History Tobacco Use Types Packs/Day Years Used Date Smoking Tobacco: Never Assessed Comments Unknown Sex and Gender Information Value Date Recorded Sex Assigned at Not on file Legal Sex Female 4:52 AM COMBINATION WELDER Gender Identity Not on file Sexual Orientation Not on file documented as of this encounter Plan of Treatment Not on file documented as of this encounter Visit Diagnoses Not on filedocumented in this encounter Additional Health Concerns Infection Onset Date Last Indicated Resolved Time R/O COVID-19 05/17/2020 05/20/2020 05/20/2020 3:21 PM COMBINATION WELDER documented as of this encounter Care Teams Information Security Engineer Relationship Specialty Start Date End Date Michael Smith MD [address] [place] [address] PCP - General 04/28/01 10/23/20 documented as of this encounter
--- OUTSIDE RECORDS SUMMARY | 2025-02-22 11:14 | XMS_ITS | Encounter Summary ---
Author Organization [facility] Healthcare Address [address] [place] [address] Care Team Providers Care Quantity Surveyor Name Role Phone Roxanne Werner MD Unavailable [phone] Ata Bronson DPM Unavailable Meir Ibrahim MD Primary Care Provider Encounter Details Date Type Department Care Team (Late st Contact Info) Description 02/12/2025 Results Follow-Up [place] [address] [place] [address] Laura Machado MA Protime-INR Social History [...] on file Legal Sex Female 2:53 PM OIL WELL FISHING TOOL OPERATOR Gender Identity Female 08/19/2020 7:43 PM CDT Sexual Orientation Straight 09/24/2020 8: 49 AM CDT 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
--- OUTSIDE RECORDS SUMMARY | 2025-02-22 11:14 | XMS_ITS | Encounter Summary ---
Author Organization [facility] Healthcare Address [address] [place] [address] Care Team Providers Care Plodding Machine Operator Name Role Phone Roxanne Werner MD Unavailable [phone] Ata Bronson DPM Unavailable [phone] Meir Ibrahim MD Primary Care Provider [phone] Encounter Details Date Type Department Care Team (Late st Contact Info) Description 01/17/2025 Results Follow-Up [place] Melt Room Operator [address] [address] Roxanne Werner MD [address] [place] [address] [address] Protime-INR Social History Tobacco Use Types Packs/Day [...] on file Legal Sex Female 2:53 PM ARCHITECT MANAGER Gender Identity Female 08/19/2020 7:43 PM CDT Sexual Orientation Straight 09/24/2020 8: 49 AM CDT 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
--- OUTSIDE RECORDS SUMMARY | 2025-02-22 11:14 | XMS_ITS | Clinical Summary ---
Author Organization [facility] Address [address] [place] [address] Care Team Providers Care Veterinary Technician Assistant Name Role Phone Roxanne Werner MD Unavailable Ata Bronson DPM Unavailable [phone] Meir Ibrahim MD Primary Care Provider [phone] Allergies Active Allergy Reactions Criticality Noted Date Comments Sulfa (Sulfonamide Antibiotics) Itching Low 10/2012 Medications cyanocobalamin (Vitamin B-12) 1,000 mcg sublingual tablet Take 1 tablet (1,000 mcg total) by mouth daily Active cholecalciferol, vitamin D3, (VITAMIN D3 ORAL) Take 2,000-5,000 Units by mouth daily 06/25/19 23 Active meclizine (ANTIVERT) 12.5 mg tablet Take [...] total) by mouth daily 90 tablet 3 08/02/19 24 Active furosemide (LASIX) 20 mg tabletIndications: Diastolic dysfunction TAKE 1 TABLET BY MOUTH EVERY DAY 90 tablet 3 11/05/19 24 Active NIFEdipine XL 60 mg 24 hr tablet TAKE 1 TABLET BY MOUTH DAILY 90 tablet 3 02/07/20 24 Active oxyBUTYnin (DITROPAN) 5 mg tablet TAKE 1 TABLET BY MOUTH TWICE DAILY 200 tablet 3 03/06/20 24 Active rosuvastatin (CRESTOR) 5 mg tablet TAKE 1 TABLET BY MOUTH DAILY AT NIGHT 100 tablet 3 03/06/20 24 Active metFORMIN (GLUCOPHAGE) 500 mg tablet Take 1 tablet (500 mg total) by mouth 2 (two) times a day 04/03/20 24 Active dapagliflozin propanediol (FARXIGA) 5 mg tablet Take 1 tablet (5 mg total) by mouth daily Active levothyroxine (SYNTHROID) 112 mcg tabletIndications: Postoperative hypothyroidism TAKE 1 TABLET BY MOUTH EARLY IN THE MORNING BEFORE BREAKFAST 90 tablet 08/12/19 25 Active metoprolol tartrate (LOPRESSOR) 50 mg immediate release tabletIndications: Essential hypertension, benign Take 1 tablet (50 mg total) by mouth 2 (two) times a day 180 tablet 3 10/19/19 25 026 Active losartan (COZAAR) 25 mg tablet Take 1 tablet (25 mg total) by mouth daily 90 tablet 3 01/18/20 25 026 Active rivaroxaban (XARELTO) 20 mg tablet Take 1 tablet (20 mg total) by mouth daily with breakfast 90 tablet 3 01/18/20 25 026 Active warfarin (COUMADIN) 1 mg tabletIndications: PAF (paroxysmal atrial fibrillation) Take 1 tablet (1 mg total) by mouth daily 30 tablet 11 11/03/19 025 Discontin ued(Alter brett therapy) warfarin (COUMADIN) 4 mg tabletIndications: PAF (paroxysmal atrial fibrillation) Take 1 tablet (4 mg total) by mouth daily 30 tablet 11 11/03/19 025 Discontin ued(Alter brett therapy) warfarin (COUMADIN) 3 mg tablet Take 1 tablet (3 mg total) by mouth daily 90 tablet 12/09/19 25 025 Discontin ued(Alter brett therapy) Active Problems Problem Noted Date Diagnosed Date Atrial fibrillation 05/17/2024 Hepatitis B core antibody positive 01/26/2024 Overview (01/26/2024): Resolved infection. Recheck in 1 year Chronic pain of left ankle 12/15/2023 Assessment & Plan (01/19/2024 12:53 PM CDT): -not at goal -advised patient to keep scheduled appointment with Podiatry on 01/20/2024 Assessment & Plan (12/15/2023 1:33 PM CDT): -festus -Wells criteria for DVT: 0 -left ankle [...] 07/12/2023 Assessment & Plan (07/14/2023 2:07 PM LOG CUTTER): -chronic, stable -Discussed/ordered labs -continue on Compazine 10 mg every 6 hours as needed Vitamin B12 deficiency 07/12/2023 Assessment & Plan (01/17/2024 8:01 AM CDT): -chronic, stable -Discussed/ordered labs -continue on OTC vitamin B12 supplement daily Assessment & Plan (07/14/2023 2:08 PM LOG CUTTER): -chronic, unknown, no data to review at this time to make an evaluation -Discussed/ordered labs -continue on OTC vitamin B12 supplement daily Vitamin D deficiency 07/12/2023 Assessment & Plan (01/17/2024 8:00 AM CDT): -chronic, stable -Discussed/ordered labs -continue on vitamin D3 supplement 5000 units daily Assessment & Plan (07/14/2023 2:08 PM LOG CUTTER): -chronic, unknown, no data to review at this time to make an evaluation -Discussed/ordered labs -continue on vitamin D3 supplement 5000 units daily Chronic cough 01/27/2023 Assessment & Plan (01/19/2024 12:53 PM CDT): -chronic, stable -Discussed/ordered labs -patient reports she stopped taking Flonase -continue follow up with the ENT as needed Assessment & Plan (07/14/2023 2:04 PM LOG CUTTER): -chronic, stable -Discussed/ordered labs -continue on Flonase [...] 01/27/2023 Assessment & Plan (07/14/2023 2:05 PM LOG CUTTER): -chronic, stable -Discussed/ordered labs -continue on Flonase 2 sprays per nostril daily and meclizine 12.5 mg 3 times daily as needed -continue seeing ENT Assessment & Plan (03/19/2023 9:11 AM LOG CUTTER): Continue the Nasal saline and Flonase Call [...] daily Assessment & Plan (07/14/2023 2:03 PM LOG CUTTER): -chronic, stable -Discussed/ordered labs -continue seeing Cardiology -continue seeing Nephrology -continue on Eliquis 5 mg every 12 hours, furosemide 20 mg daily, metoprolol 50 mg twice daily, nifedipine XL 60 mg daily, potassium ER 20 mEq twice daily, Rosuvastatin 5 mg daily Assessment & Plan (05/04/2023 3:52 PM LOG CUTTER): Stable. Blood pressure is well controlled today. Last GFR was 44. Recheck BMP today. Will refer back to Nephrology Assessment & Plan (10/21/2022 8:56 AM CDT): Blood pressure well controlled. gfr 40. Will continue to monitor. Recheck bmp in 3 months. Diastolic dysfunction 10/21/2022 Overview (10/21/2022): Monitor for SOB, fatigue, weight gain, etc. Assessment & Plan (07/14/2023 2:02 PM LOG CUTTER): -chronic, stable -Discussed/ordered labs -continue seeing Cardiology -continue on Eliquis 5 mg every 12 hours, furosemide 20 mg daily, metoprolol 50 mg twice daily, nifedipine XL 60 mg daily, potassium ER 20 mEq twice daily, Rosuvastatin 5 mg daily Assessment & Plan (05/04/2023 3:53 PM LOG CUTTER): History of diastolic dysfunction. Patient follows with [...] daily Assessment & Plan (07/14/2023 2:03 PM LOG CUTTER): -chronic, stable -Discussed/ordered labs -continue seeing Cardiology [...] 06/18/2022 Assessment & Plan (07/14/2023 2:06 PM LOG CUTTER): -chronic, stable -Discussed/ordered labs -continue seeing Cardiology -continue on Eliquis 5 mg every 12 hours, furosemide 20 mg daily, metoprolol 50 mg twice daily, nifedipine XL 60 mg daily, potassium ER 20 mEq twice daily, Rosuvastatin 5 mg daily Assessment & Plan (06/18/2022 11:11 AM LOG CUTTER): HPI: Condition is not at/near goal swelling [...] 06/18/2022 Assessment & Plan (06/18/2022 11:14 AM LOG CUTTER): HPI: Condition is not at/near goal A&P: [...] 04/22/2022 Assessment & Plan (07/14/2023 2:05 PM LOG CUTTER): -chronic, stable -Discussed/ordered labs -continue on cyclobenzaprine 3 times daily as needed and OTC muscle rub Assessment & Plan (06/18/2022 11:12 AM LOG CUTTER): HPI: Condition is not at/near goal A&P: Discussed/ordered labs, encouraged healthy, low carbohydrate lifestyle and at least 150min/week of exercise. Pt has not been using Voltaren gel. Pt denies stretching or doing other home remedies to help her back We will do xray lumbar spine today Physical therapy Muscle rubs such as biofreeze/icy hot Massage may help Assessment & Plan (04/22/2022 8:21 AM LOG CUTTER): Does not wish to seek further treatment, [...] in your mouth on an boom like Milk A Deal Hand Measurements: A fist or cupped hand [...] in your mouth on an boom like [employer] Hand Measurements: A fist or cupped hand [...] cup. Assessment & Plan (07/14/2023 2:05 PM LOG CUTTER): -chronic, stable goal BMI <30 Healthy, high-protein, lower carbohydrate, lower fat lifestyle and exercise for 150min/week recommended Recommend tracking everything you put in your mouth on an boom like [employer] Hand Measurements: A fist or cupped hand [...] cup. Assessment & Plan (06/18/2022 11:13 AM LOG CUTTER): HPI: Condition is stable goal BMI <30 A&P: Healthy, high-protein, lower carbohydrate, lower fat lifestyle and exercise for 150min/week recommended Recommend tracking everything you put in your mouth on an boom like Milk A Deal Lower carb substitutions: Aldi carries a zero [...] in much longer they will become mushy [place] and/or coconut flour instead of regular flour [...] pork rinds For yogurt, try Two Good macanese yogurt Use Pinterest for recipe ideas. Type [...] cup. Assessment & Plan (04/22/2022 8:20 AM LOG CUTTER): BMI Follow-up includes: exercise counseling. Assessment & Plan (10/16/2021 11:09 AM CDT): HPI: Condition is improving, but not at goal goal BMI <30 A&P: Healthy, high-protein, lower carbohydrate, lower fat lifestyle and exercise for 150min/week recommended Recommend tracking everything you put in your mouth on an boom like Milk [employer] Deal Lower carb substitutions: Aldi carries a zero [...] in much longer they will become mushy [place] and/or coconut flour instead of regular flour For pizza dough, try fathead pizza dough recipe online. To get a crispy crust, bake on one side for 8-12 min, then flip over and bake on the other side for 8-12 min, then put toppings on and bake until the cheese on top of pizza melts chaffying recipe online For ice cream, try the brand Enlightened To replace coffee creamer and make it low carb, use heavy creamer with sugar free Torani sweetener For chips, try Whisps or pork rinds For yogurt, try Two Good macanese yogurt Use Gregorio for recipe ideas. Type [...] cup. Assessment & Plan (04/08/2021 9:43 AM LOG CUTTER): HPI: Condition is not at/near goal goal BMI <30 A&P: Healthy, high-protein, lower carbohydrate, lower fat lifestyle and exercise for 150min/week recommended Substitutions: Recommend tracking everything you put in your mouth on an boom like Milk A Deal or [employer] Aldi carries a zero net carb bread [...] in much longer they will become mushy [place] and/or coconut flour instead of regular flour [...] pork rinds For yogurt, try Two Good macanese yogurt Use Pinterest for recipe ideas. Type [...] daily Assessment & Plan (07/14/2023 2:03 PM LOG CUTTER): -chronic, stable -Discussed/ordered labs -continue seeing Cardiology -continue on Eliquis 5 mg every 12 hours, furosemide 20 mg daily, metoprolol 50 mg twice daily, nifedipine XL 60 mg daily, potassium ER 20 mEq twice daily, Rosuvastatin 5 mg daily Assessment & Plan (08/06/2022 8:58 AM CDT): Stable. Continue eliquis, metoprolol, Assessment & Plan (04/22/2022 8:01 AM LOG CUTTER): Stable. Managed by cardiology. Remains on eliquis [...] Werner Assessment & Plan (04/08/2021 8:57 AM LOG CUTTER): HPI: Condition is stable A&P: Discussed/ordered labs, [...] daily Assessment & Plan (07/14/2023 2:03 PM LOG CUTTER): -chronic, stable -Discussed/ordered labs -continue seeing Cardiology [...] Werner Assessment & Plan (04/08/2021 8:55 AM LOG CUTTER): HPI: Condition is stable A&P: Discussed/ordered labs, [...] addition of loop diuretic. Current use of chcf anticoagulation 021 Assessment & Plan (01/17/2024 8:01 AM CDT): -chronic, stable -Discussed/ordered labs -continue on Eliquis 5 mg every 12 hours -continue seeing Cardiology Assessment & Plan (07/14/2023 2:05 PM LOG CUTTER): -chronic, stable -Discussed/ordered labs -continue on Eliquis 5 mg every 12 hours -continue seeing Cardiology Assessment & Plan (10/16/2021 11:10 AM CDT): HPI: Condition is stable A&P: Discussed/ordered labs, encouraged healthy, low carbohydrate lifestyle and at least 150min/week of exercise, continue on eliquis 5mg every 12 hours Continue f/u with cardiology Dr. Werner every 6 mo Assessment & Plan (04/08/2021 9:24 AM LOG CUTTER): HPI: Condition is stable A&P: Discussed/ordered labs, encouraged healthy, low carbohydrate lifestyle and at least 150min/week of exercise, continue on Eliquis 5 mg twice daily continue follow-up with cardiology-Dr. Elizabeth Assessment & Plan (02/25/2021 11:14 AM CDT): Patient has had no major bleeding events, she will continue with long-term anticoagulation. Hypokalemia 06/06/2020 Assessment & Plan (07/14/2023 2:03 PM LOG CUTTER): -chronic, stable -Discussed/ordered labs -continue seeing Cardiology -continue on Eliquis 5 mg every 12 hours, furosemide 20 mg daily, metoprolol 50 mg twice daily, nifedipine XL 60 mg daily, potassium ER 20 mEq twice daily, Rosuvastatin 5 mg daily Assessment & Plan (05/04/2023 3:54 PM LOG CUTTER): Received critical results after patient left. BMP [...] exercise Assessment & Plan (07/14/2023 2:07 PM LOG CUTTER): -chronic, stable -Discussed/ordered labs -recommend healthy low carb diet and increase exercise Assessment & Plan (05/04/2023 3:52 PM LOG CUTTER): Will recheck hemoglobin A1c today. Recommended healthy diet, incorporating fruits, vegetables and adequate amounts of water along with mild-moderate daily exercise as tolerated; Assessment & Plan (08/06/2022 9:05 AM CDT): Had A1c drawn in June and labs A1c was 6.3%. Recommend low carb diet. Continue her exercise habits. Will continue to monitor Assessment & Plan (04/22/2022 8:01 AM LOG CUTTER): Stable. Recommended healthy diet, incorporating fruits, vegetables and adequate amounts of water along with mild-moderate daily exercise as tolerated; Assessment & Plan (10/16/2021 7:24 AM CDT): HPI: Condition is stable A&P: Discussed/ordered labs, encouraged healthy, low carbohydrate lifestyle and at least 150min/week of exercise Assessment & Plan (04/08/2021 7:19 AM LOG CUTTER): HPI: Condition is stable A&P: Discussed/ordered labs, encouraged healthy, low carbohydrate lifestyle and at least 150min/week of exercise History of adenomatous polyp of colon 04/07/2016 Overview (04/08/2021): Last colonoscopy 07/[address] Noguera (GI) Repeat in 5 yrs. Assessment & Plan (01/17/2024 8:01 AM CDT): Last colonoscopy completed 07/15/2020 Repeat in 5 years Assessment & Plan (07/14/2023 2:06 PM LOG CUTTER): Last colonoscopy completed 07/15/2020 Repeat in 5 years Assessment & Plan (10/16/2021 7:24 AM CDT): Last colonoscopy 07/[address] Noguera (GI), repeat in 5 yrs. Assessment & Plan (04/08/2021 7:20 AM LOG CUTTER): Last colonoscopy 07/[address] Noguera (GI) [...] normal. Assessment & Plan (07/14/2023 2:02 PM LOG CUTTER): -chronic, stable -Discussed/ordered labs -continue seeing Cardiology [...] Werner Assessment & Plan (04/08/2021 7:21 AM LOG CUTTER): HPI: Condition is stable A&P: Discussed/ordered labs, encouraged healthy, low carbohydrate lifestyle and at least 150min/week of exercise, continue on Furosemide 20 mg daily, Metoprolol tartrate 25 mg twice daily, nifedipine 60 mg Daily, potassium chloride 10 mEq twice daily, rosuvastatin 5 mg daily Urinary incontinence 07/22/2009 Assessment & Plan (07/14/2023 2:07 PM LOG CUTTER): -chronic, stable -Discussed/ordered labs -continue on oxybutynin 5 mg twice daily Assessment & Plan (10/16/2021 11:18 AM CDT): HPI: Condition is not controlled A&P: Discussed/ordered labs, encouraged healthy, low carbohydrate lifestyle and at least 150min/week of exercise, stop taking the oxybutynin 5mg twice daily Trial on myrbetriq 25mg daily Assessment & Plan (04/08/2021 9:27 AM LOG CUTTER): HPI: Condition is stable, she reports that [...] daily Assessment & Plan (07/14/2023 2:02 PM LOG CUTTER): -chronic, stable -Discussed/ordered labs -continue seeing Cardiology [...] management Assessment & Plan (04/22/2022 8:01 AM LOG CUTTER): Stable/ Improved. Blood pressure is adequately controlled [...] Werner Assessment & Plan (04/08/2021 7:21 AM LOG CUTTER): HPI: Condition is stable A&P: Discussed/ordered labs, [...] time. Assessment & Plan (07/16/2020 12:26 PM LOG CUTTER): Patient's home blood pressures ranging 165-185/91-98. Will keep patient on Metoprolol 50mg BID since patient has not began the medication with the change (did not see [employer] message). Denies feeling symptomatic. Patient to keep home BP readings and bring to next follow up in 2 weeks with her home BP machine. Pt to let us know if she feels any adverse reaction to increasing the Metoprolol dose. Assessment & Plan (07/05/2020 1:28 PM LOG CUTTER): BP journal until next follow up (1-2 [...] daily Assessment & Plan (07/14/2023 2:06 PM LOG CUTTER): -chronic, stable -Discussed/ordered labs -continue on levothyroxine [...] day Assessment & Plan (04/22/2022 8:00 AM LOG CUTTER): Lipid abnormalities are stable. Pharmacotherapy as ordered. [...] day. Assessment & Plan (04/08/2021 7:19 AM LOG CUTTER): HPI: Condition is stable A&P: Discussed/ordered labs, [...] day. Assessment & Plan (07/05/2020 1:29 PM LOG CUTTER): Most recent thyroid function showed normalcy Will continue levothyroxien at 112 mcg daily Resolved Problems Problem Noted Date Diagnosed Date Resolved Date Tendonitis, Achilles, left 05/04/2023 0 07/12/2023 Assessment & Plan (05/04/2023 3:53 PM LOG CUTTER): Refer to podiatry for Achilles tendonitis Body mass index (BMI) 31.0-31.9, adult 02/09/2023 07/14/2023 Assessment & Plan (02/09/2023 9:26 AM CDT): BMI Follow-up includes: nutrition counseling. Stage 3a chronic kidney disease 02/09/2023 07/14/2023 Assessment & Plan (05/04/2023 3:55 PM LOG CUTTER): Referred back to Nephrology. However today her [...] tomatoes, oranges, milk, dark kathi and chocolate. Woden juice, citrus juices, and tomato juice are [...] (07/08/2020): Added automatically from request for surgery [id number] Neuropathy 07/05/2020 07/12/2023 Overview (07/05/2020): noted during [...] podiatry Assessment & Plan (04/08/2021 9:25 AM LOG CUTTER): HPI: Condition is A&P: Discussed/ordered labs, encouraged [...] Encounters Date Type Department Care Team Description 02/21/2025 1:10 PM CDT Lab [address] [address] PAF (paroxysmal atrial fibrillation) 02/21/2025 Results Follow-Up [facility] [address] [place] [address] [phone] Laura Machado MA Protime-INR 02/20/2025 [facility] Post Discharge Follow up phone call [facility] Emergency Department [address] [place] [phone] Dawn Bustamante RN 02/14/2025 Results Follow-Up [facility] [employer] [facility] [address] [place] [phone] Roxanne Werner MD Protime-INR, Basic metabolic panel, eGFR 02/12/2025 12:55 PM CDT Lab [address] [address] 02/12/2025 11:55 AM CDT Lab [address] [address] PAF (paroxysmal atrial fibrillation); Primary hypertension; Chronic left-sided low back pain without sciatica; Hyperlipidemia, unspecified hyperlipidemia type; Chronic diastolic (congestive) heart failure 02/12/2025 Anticoagulation Visit [facility] [address] [place] [phone] Laura Machado MA Paroxysmal atrial fibrillation (HCC) (Primary Dx) 02/12/2025 Results Follow-Up [facility] [address] [place] [phone] Laura Machado MA Protime-INR 02/09/2025 9:27 PM CDT - 02/10/2025 1:12 AM CDT Emergency [facility] Emergency Department [address] [place] [id number] Yulissa Mccain MD Coagulopathy (Primary Dx) Discharge Disposition: Discharge to home or self care 02/09/2025 3:10 PM CDT Lab [address] [address] PAF (paroxysmal atrial fibrillation) 01/26/2025 Telephone [facility] [address] [place] [address] [phone] Emily Romero 01/22/2025 11:54 AM CDT - 01/22/2025 11:59 PM CDT Hospital Encounter [facility] Diagnostic Imaging [address] [place] [phone] Abdominal pain, unspecified abdominal location; Urinary tract infection without hematuria, site unspecified Discharge Disposition: Discharge to home or self care 01/22/2025 11:35 AM CDT Lab [address] [address] 01/18/2025 Anticoagulation Visit [facility] [address] [place] [phone] Laura Machado MA Paroxysmal atrial fibrillation (HCC) (Primary Dx) 01/17/2025 10:15 AM CDT Office Visit [facility] [address] [place] [phone] Roxanne Werner MD Longstanding persistent atrial fibrillation (HCC) (Primary Dx) 01/17/2025 Results Follow-Up [facility] [address] [place] [phone] Roxanne Werner MD Protime-INR 01/17/2025 Orders Only [facility] [address] [place] [phone] Roxanne Werner MD Primary hypertension (Primary Dx); Chronic left-sided low back pain without sciatica; Hyperlipidemia, unspecified hyperlipidemia type; Chronic diastolic (congestive) heart failure 01/12/2025 2:05 PM CDT Lab [address] [address] PAF (paroxysmal atrial fibrillation) 01/05/2025 Telephone [facility] [address] [place] [phone] Laura Machado MA Home INR Testing 01/05/2025 Orders Only [facility] Primary Care at [address] [phone] Karolyn Evans NP Screening mammogram for breast cancer (Primary Dx) 01/05/2025 Results Follow-Up [facility] Primary Care at [address] [phone] Karolyn Evans NP Screening Mammogram Bilateral W Gustavo 01/04/2025 8:49 AM CDT - 01/04/2025 11:59 PM CDT Hospital [facility] [address] [place] [phone] Breast cancer screening by mammogram Discharge Disposition: Discharge to home or self care 01/01/2025 9:35 AM CDT Lab [address] [address] PAF (paroxysmal atrial fibrillation) 01/01/2025 Results Follow-Up [facility] [address] [place] [phone] Laura Machado MA Protime-INR 12/26/2024 7:43 PM CDT - 12/27/2024 8:31 AM CDT Emergency [facility] Emergency Department [address] [place] [phone] Calixto Prince MD Nonintractable headache, unspecified chronicity pattern, unspecified headache type (Primary Dx); Hypertension, unspecified type Discharge Disposition: Discharge to home or self care 12/20/2024 Results Follow-Up [facility] [address] [place] [phone] Roxanne Werner MD Lipid panel 12/18/2024 2:25 PM CDT Lab [address] [address] Aortic valve stenosis, etiology of cardiac valve disease unspecified 12/08/2024 Anticoagulation Visit [facility] [address] [place] [phone] Laura Machado MA Paroxysmal atrial fibrillation (HCC) (Primary Dx) 12/04/2024 1:00 PM CDT - 12/04/2024 11:59 PM CDT Hospital Encounter [facility] Diagnostic Imaging [address] [place] [phone] Chest pain, unspecified type Discharge Disposition: Discharge to home or self care 12/01/2024 1:15 PM CDT Lab [address] [address] PAF (paroxysmal atrial fibrillation) (HCC) 12/01/2024 Results Follow-Up [facility] [address] [place] [address] [phone] Laura Machado MA Protime-INR from Last 3 Months Immunizations Immunization Administration [...] Maternal Grandfather No Known Problems Maternal Grandmother Breast cancer Maternal cousin 1 Prostate cancer Maternal cousin 2 Kidney disease Mother Delores Hankins chronic kidney Mother Delores Hankins at 83 yo a No Known Problems Paternal Grandfather Heart attack Paternal Grandmother Najma Foster Breast cancer Sister 1 Wanda Cotton Cancer Sister 1 Wanda Cotton breast Diabetes Sister 1 Wanda Cotton Hypertension Sister 1 Wanda Cotton Kidney disease Sister 3 Kenyatta Andrea Endometrial cancer Neg Hx Ovarian cancer Neg Hx Pancreatic cancer Neg Hx Thyroid cancer Neg Hx Relation Name Status Comments Brother 1 Ranjit Hankins Jr Brother 2 Rl Hankins Father Ranjit Hankins Sr Maternal Grandfather Maternal Grandmother Maternal cousin 1 Maternal cousin 2 Alive Mother Delores Hankins Paternal Grandfather Paternal Grandmother Najma Foster Sister 1 Wanda Cotton Alive Sister 2 Alive Sister 3 Kenyatta Andrea Social History Tobacco Use Types Packs/Day Years [...] on file Legal Sex Female 2:53 PM LOG CUTTER Gender Identity Female 08/19/2020 7:43 PM CDT Sexual Orientation Straight 09/24/2020 8: 49 AM CDT 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 file Not on file Obstetrics History Para Term AB IAB SAB Ectopic Multiple Livin g Live Births 0 Last Filed Vital Signs Vital Sign Reading Time Taken Comments Blood Pressure 186/78 02/10/2025 1:11 AM CDT Pulse 64 02/10/2025 1:11 AM CDT Temperature 36.4 C (97.5 F) 02/09/2025 8:00 PM CDT Respiratory Rate 18 02/10/2025 1:11 AM CDT Oxygen Saturation 100% 02/10/2025 1:11 AM CDT Inhaled Oxygen Concentration - - Weight 81.6 kg (180 lb) 02/09/2025 8:02 PM CDT Height 170.2 cm (5' 7) 02/09/2025 8:02 PM CDT Body Mass Index 28.19 02/09/2025 8:02 PM CDT Plan of Treatment Health Maintenance Due Date Last Done Comments Albumin Creatinine Ratio, Urine 1950 Dilated Eye Exam 1950 Foot Exam 1950 Hemoglobin A1C 07/16/2024 01/17/2024, 03/0 08/2023, 05/04/2023, Additional history exists Covid-19 Vaccine (8 - 2024-2 6 season) 2025 02/25/2022, 08/26/2021, 03/19/2021, Additional history exists Influenza Vaccine (#1) 2025 , 02/09/2023, 02/09/2022, Additional history exists Depression Screening 01/16/2025 01/17/2024, 12/15/2023, 07/12/2023, Additional history exists Fall Risk Assessment 01/16/2025 01/17/2024, 12/15/2023, 07/12/2023, Additional history exists Well Visit 65+ 01/16/2025 01/17/2024, 07/10, 07/31/2021 Osteoporosis Screening-Bone Density Scan 07/27/2025 07/28/2023, 08/26/2020, 06/11/2015, Additional history exists Lipid Panel 12/18/2025 12/18/2024, 090 01/2024, 07/12/2023, Additional history exists eGFR 02/12/2026 02/12/2025, 1007/2024, 12/26/2024, Additional history exists DTaP/Tdap/Td Vaccine (3 - Td or Tdap) 05/27/2028 05/27/2018, 03/08/2006 Colon Cancer Screening-CT Colonography Discontinued 07/15/2020 Colon Cancer Screening-Colonoscopy Discontinued 07/15/2020 Colon Cancer Screening-DNA Stool Discontinued 07/16/19 21 Colon Cancer Screening-FIT Discontinued 07/15/2020 Colon Cancer Screening-FOBT Discontinued 07/15/2020 Colon Cancer Screening-Sigmoidoscopy Discontinued 07/15/2020 Colorectal Cancer Screening Discontinued Pneumococcal vaccine 65+ Completed 022, 05/17/2015, 05/21/2014 Hepatitis C Screening Completed 01/29/2022, 021 Zoster Vaccine Completed 02/09/2022, 07/31/2021 Hepatitis B Screening Completed 01/17/2024 Breast Cancer Screening-Mammogram Discontinued 01/04/2025, 11/29/2023, 11/06/2022, Additional history exists Procedures Procedure Name Priority Date/Time Associated Diagnosis Comments PROTIME-INR Routine 02/21/2025 1:19 PM CDT PAF (paroxysmal atrial fibrillation) EGFR Routine 02/12/2025 2:30 PM CDT Primary hypertension Chronic left-sided low back pain without sciatica Hyperlipidemia, unspecified hyperlipidemia type Chronic diastolic (congestive) heart failure BASIC METABOLIC PANEL Routine 02/12/2025 2:30 PM CDT Primary hypertension Chronic left-sided low back pain without sciatica Hyperlipidemia, unspecified hyperlipidemia type Chronic diastolic (congestive) heart failure PROTIME-INR Routine 02/12/2025 12:22 PM CDT PAF (paroxysmal atrial fibrillation) EGFR STAT 02/09/2025 8:18 PM CDT DIFFERENTIAL AUTO STAT 02/09/2025 8:1 8 PM CDT PROTIME-INR STAT 02/09/2025 8:18 PM CDT COMPREHENSIVE METABOLIC PANEL STAT 02/09/2025 8:18 PM CDT CBC WITH AUTO DIFFERENTIAL STAT 02/09/2025 8:18 PM CDT ECG 12-LEAD Routine 02/09/2025 8:08 PM CDT PROTIME-INR Routine 02/09/2025 3:50 PM CDT PAF (paroxysmal atrial fibrillation) XR KUB Schedule Routine, Read Routine (OP Routine) 01/22/2025 12:17 PM CDT Abdominal pain, unspecified abdominal location Urinary tract infection without hematuria, site unspecified DIFFERENTIAL AUTO Routine 01/22/2025 11:38 AM CDT CBC WITH AUTO DIFFERENTIAL Routine 01/22/2025 11:38 AM CDT URINALYSIS AND REFLEX TO MICROSCOPIC AND CULTURE Routine 01/22/2025 11:38 AM CDT PROTIME-INR Routine 01/12/2025 3:07 PM CDT PAF (paroxysmal atrial fibrillation) SCREENING MAMMOGRAM BILATERAL W GUSTAVO Schedule Routine, Read Routine (OP Routine) 01/04/2025 9:19 AM CDT Breast cancer screening by mammogram PROTIME-INR Routine 01/01/2025 10:19 AM CDT PAF (paroxysmal atrial fibrillation) CT HEAD W CONTRAST ED 12/27/2024 4: 36 AM CDT PROTIME-INR STAT 12/27/2024 12:25 AM CDT TROPONIN T HIGH-SENSITIVITY 4-HR Timed 12/27/2024 12:25 AM CDT TROPONIN T HIGH-SENSITIVITY 2-HOUR Timed 12/26/2024 10:[address] HEAD WO CONTRAST ED Urgent/IP Urgent 12/26/2024 9:45 PM CDT ECG 12-LEAD Routine 12/26/2024 9:36 PM CDT EGFR STAT 12/26/2024 8:49 PM CDT DIFFERENTIAL AUTO STAT 12/26/2024 8:4 9 PM CDT TROPONIN T HIGH-SENSITIVITY SERIES (BASELINE, 2HR, 4HR, 6HR) STAT 12/26/2024 8:49 PM CDT COMPREHENSIVE METABOLIC PANEL STAT 12/26/2024 8:49 PM CDT CBC WITH AUTO DIFFERENTIAL STAT 12/26/2024 8:49 PM CDT INFLUENZA A/B, RSV, AND COVID-19 PCR STAT 12/26/2024 8:49 PM CDT URINALYSIS AND REFLEX TO MICROSCOPIC AND CULTURE STAT 12/26/2024 8:49 PM CDT LIPID PANEL Routine 12/18/2024 2:51 PM CDT Aortic valve stenosis, etiology of cardiac valve disease unspecified XR CHEST PA LATERAL 2 VIEWS Schedule Routine, Read Routine (OP Routine) 12/04/2024 1:12 PM CDT Chest pain, unspecified type PROTIME-INR Routine 12/01/2024 1:40 PM CDT PAF (paroxysmal atrial fibrillation) (HCC) HEMOGLOBIN A1C Routine 01/17/2024 11:43 AM CDT Prediabetes DEXA AXIAL SKELETON BONE DENSITY 1 OR MORE SITES Schedule Routine, Read Routine (OP Routine) 07/28/2023 10:21 AM CDT Screening for osteoporosis Asymptomatic menopausal state HM HEPATITIS C SCREENING Routine 01/29/2022 COLONOSCOPY 07/15/2020 11:52 AM LOG CUTTER from Last 3 Months or Most Recently Relevant to Health Maintenance Results * (ABNORMAL) Protime-INR (02/21/2025 1:19 PM [...] ORDERABLES F inal Result Performing Organization Address [facility] Co de Phone Number KEREN GAMEZ [id number] [address] Department of [employer] [place], [place] [id number] * eGFR (02/12/2025 2:30 PM CDT) eGFR 62 >=60 mL/min/1. 73 m2 Comment: Interpretive Data [...] of Race in Diagnosing Kidney Disease, JASN 2020). The CKD-EPI equation should not be used for patients with unstable renal function and has not been validated in children and those over 70. Current interpretive data was last reviewed 2021. Blood 02/12/2025 2:30 PM CDT 02/12/2025 2:30 PM CDT Roxanne Werner MD LAB BLOOD ORDERABLES F inal Result Performing Organization Address City/[facility]/ZIP Co de Phone Number KEREN GAMEZ [id number] [address] Department [place] [address] * Basic metabolic panel (02/12/2025 2:30 PM CDT) Sodium 142 135 - 145 mmol/L Potassium, pl 3.9 3.3 - 4.9 mmol/L [facility] Comment:Hemolysis present. R esults may be affected. Chloride 102 97 - 110 mmol/L [facility] CO2 25 22 - 32 mmol/L [facility] Anion gap 15 2 - 15 mmol/L [facility] BUN 10 6 - 25 mg/dL [facility] Creatinine 0.94 0.60 - 1.10 mg/dL [facility] Glucose 180 70 - 199 mg/dL [facility] Comment: Interpretive Data Fasting glucose >/= 126 mg/dl is diagnostic for diabetes. Fasting is defined as no caloric intake for at least 8 hours. Fasting glucose between 100 mg/dl to 125 mg/dl is diagnostic of prediabetes. In a patient with classic symptoms of hyperglycemia or hyperglycemic crisis, a random glucose >/= 200 mg/dl is diagnostic for diabetes. In the absence of unequivocal hyperglycemia, results should be confirmed by repeat testing. The classification and Diagnosis of Diabetes Diabetes Care 202; 46: S19-S40. Current interpretive data was last revised 2022. Calcium 9.7 8.5 - 10.3 mg/dL [facility] Blood 02/12/2025 2:30 PM CDT 02/12/2025 2:30 PM CDT Roxanne Werner MD LAB BLOOD ORDERABLES F inal Result [facility] [id number] [facility] Department [place] [address] * (ABNORMAL) Protime-INR (02/12/2025 12:22 PM CDT) PT 23.7(H) 10.2 - 13.5 sec INR 2.13(H) 0.90 - 1.20 [facility] Comment: Interpretive data Oral anticoagulant therapeutic ranges: Venous thromboembolism prophylaxis or treatment: 2.0-3.0 CARDIOLOGY Standard range: 2.0-3.0 High-intensity range: 2.5-3.5 Refer to indication-specific guidelines for appropriate target ranges for prosthetic heart valve replacement. Current interpretive data was last revised on 2019. Blood 02/12/2025 12:2 2 PM CDT 02/12/2025 12:22 PM CDT Narrative KEREN - 02/12/2025 12:45 PM CDT Patient is just starting on warfarin and will have additional lab that need drawn. Roxanne Werner MD LAB BLOOD ORDERABLES F inal Result Performing Organization Address [facility]/ZIP Co de Phone Number KEREN [phone] [address] Department [place] [address] * eGFR (02/09/2025 8:18 PM CDT) eGFR 60 >=60 mL/min/1. 73 m2 Comment: Interpretive Data [...] of Race in Diagnosing Kidney Disease, JASN 2020). The CKD-EPI equation should not be used for patients with unstable renal function and has not been validated in children and those over 70. Current interpretive data was last reviewed 2021. Blood 02/09/2025 8:18 PM CDT 02/09/2025 8:28 PM CDT Yulissa Mccain MD LAB BLOOD ORDERABLES Fi nal Result Performing Organization Address City/[facility]/ZIP Co de Phone Number KEREN GAMEZ [phone] [address] Department [place] [address] * (ABNORMAL) Differential, auto (02/09/2025 8:18 PM CDT) Neutrophil abs 4.02 1.50 - 6.50 K/cumm Imm gran abs 0.02 0.00 - 0.10 K/cumm [facility] Lymphocyte abs 1.85 0.80 - 3.30 K/cumm [facility] Monocyte abs 0.94(H) 0.20 - 0.80 K/cumm [facility] Eosinophil abs 0.07 0.00 - 0.50 K/cumm [facility] Basophil abs 0.02 0.00 - 0.10 K/cumm [facility] Neutrophil pct 58.1 % [facility] Comment: Interpretive Data Percent cell count reference ranges are not reported, since discordance with absolute values may lead to misinterpretation of CBC data. Current Interpretive Data was last revised on 2017. Imm gran pct 0.3 % [facility] Comment: Interpretive Data Percent cell count reference ranges are not reported, since discordance with absolute values may lead to misinterpretation of CBC data. Current Interpretive Data was last revised on 2017. Lymphocyte pct 26.7 % [facility] Comment: Interpretive Data Percent cell count reference ranges are not reported, since discordance with absolute values may lead to misinterpretation of CBC data. Current Interpretive Data was last revised on 2017. Monocyte pct 13.6 % [facility] Comment: Interpretive Data Percent cell count reference ranges are not reported, since discordance with absolute values may lead to misinterpretation of CBC data. Current Interpretive Data was last revised on 2017. Eosinophil pct 1.0 % [facility] Comment: Interpretive Data Percent cell count reference ranges are not reported, since discordance with absolute values may lead to misinterpretation of CBC data. Current Interpretive Data was last revised on 2017. Basophil pct 0.3 % [facility] Comment: Interpretive Data Percent cell count reference ranges are not reported, since discordance with absolute values may lead to misinterpretation of CBC data. Current Interpretive Data was last revised on 2017. Blood 02/09/2025 8:18 PM CDT 02/09/2025 8:28 PM CDT us Yulissa Mccain MD LAB BLOOD ORDERABLES Fi nal Result [facility] [id number] [address] Department [place] [address] * CBC with auto differential (02/09/2025 8:18 PM CDT) [facility] WBC 6.92 3.80 - 9.90 K/cumm Hgb 13.5 11.9 - 15.5 g/dL [facility] Hct 41.8 35.6 - 45.5 % [facility] Plt 301 150 - 400 K/cumm [facility] MPV 10.8 9.1 - 12.3 fL [facility] RBC 4.94 3.90 - 5.20 M/cumm [facility] MCV 84.6 81.3 - 96.4 fL [facility] MCH 27.3 27.1 - 33.3 pg [facility] MCHC 32.3 32.3 - 35.7 g/dL [facility] RDW CV 14.9 11.1 - 14.9 % [facility] RDW SD 45.7 35.7 - 48.1 fL [facility] NRBC abs 0.00 0.00 - 0.01 K/cumm [facility] Blood Venous blood specimen / Unknown 02/09/2025 8:18 PM CDT 02/09/2025 8:28 PM CDT Yulissa Mccain MD LAB BLOOD ORDERABLES nal Result KEREN [id number] [address] Department [place] [address] * (ABNORMAL) Protime-INR (02/09/2025 8:18 PM CDT) [facility] PT 69.5(H) 10.2 - 13.5 sec Comment:Critical result call ed to and read back by Jeannie Asif (RN _) on 02/09/2025 21:39:36 CDT _ to Bushra Quijano _. INR 6.38(C) 0.90 - 1.20 [facility] Comment: Critical result called to and read back by Jeannie Asif (RN _) on 02/09/2025 21:39:36 CDT _ to Bushra Quijano _. Interpretive data Oral anticoagulant therapeutic ranges: Venous thromboembolism prophylaxis or treatment: 2.0-3.0 CARDIOLOGY Standard range: 2.0-3.0 High-intensity range: 2.5-3.5 Refer to indication-specific guidelines for appropriate target ranges for prosthetic heart valve replacement. Current interpretive data was last revised on 2019. Blood 02/09/2025 8:18 PM CDT 02/09/2025 8:28 PM CDT us Yulissa Mccain MD LAB BLOOD ORDERABLES Fi nal Result [facility] [id number] [address] Department [place] [address] * Comprehensive metabolic panel (02/09/2025 8:18 PM CDT) Sodium 141 135 - 145 mmol/L Potassium, pl 3.3 3.3 - 4.9 mmol/L [facility] Chloride 104 97 - 110 mmol/L [facility] CO2 23 22 - 32 mmol/L [facility] Anion gap 14 2 - 15 mmol/L [facility] BUN 11 6 - 25 mg/dL [facility] Creatinine 0.97 0.60 - 1.10 mg/dL [facility] Glucose 145 70 - 199 mg/dL [facility] Comment: Interpretive Data Fasting glucose >/= 126 mg/dl is diagnostic for diabetes. Fasting is defined as no caloric intake for at least 8 hours. Fasting glucose between 100 mg/dl to 125 mg/dl is diagnostic of prediabetes. In a patient with classic symptoms of hyperglycemia or hyperglycemic crisis, a random glucose >/= 200 mg/dl is diagnostic for diabetes. In the absence of unequivocal hyperglycemia, results should be confirmed by repeat testing. The classification and Diagnosis of Diabetes Diabetes Care 202; 46: S19-S40. Current interpretive data was last revised 2022. Calcium 9.5 8.5 - 10.3 mg/dL [facility] Bilirubin, total 1.0 0.1 - 1.2 mg/dL [facility] Protein, pl 7.7 6.5 - 8.5 g/dL [facility] Albumin 4.1 3.5 - 5.0 g/dL [facility] Alk phos 87 40 - 130 Units/L [facility] ALT 22 7 - 45 Units/L [facility] AST 26 10 - 45 Units/L [facility] Blood 02/09/2025 8:18 PM CDT 02/09/2025 8:28 PM CDT Yulissa Mccain MD LAB BLOOD ORDERABLES Fi nal Result Performing Organization Address [facility] Co de Phone Number [facility] [phone] [address] Department [place] [address] * ECG 12 lead (02/09/2025 8:08 PM CDT) 02/09/2025 8:08 PM CDT Narrative [facility] - 02/10/2025 8:35 AM CDT Vent Rate: 61 bpm RR Interval: 971 msec CO Interval: 0 msec QRS Duration: 93 msec QT Interval: 374 msec QTC Interval: 378 msec P-R-T [place]: 0 - -9 - 62 degrees IMPRESSION: ATRIAL FIBRILLATION MODERATE VOLTAGE CRITERIA FOR LVH, CONSIDER NORMAL VARIANT [MEETS CRITERIA IN ONE OF: R(aVL), S(V1), R(V5), R(V5/V6)+S(V1)] NONSPECIFIC T-WAVE ABNORMALITY ABNORMAL RHYTHM ECG NO CHANGE FROM PREVIOUS TRACING NOTED Electronically Signed By: Brenden Gannon MD Yulissa Mccain MD ECG ORDERABLES Final R esult Performing Organization Address [facility] Co de Phone Number [facility] * (ABNORMAL) Protime-INR (02/09/2025 3:50 PM CDT) PT 80.1(H) 10.2 - 13.5 sec Comment:Critical result call ed to and read back by Soha Lopez on 02/09/2025 17:31:34 CDT _ to _ Bushra Quijano . INR 7.37(C) 0.90 - 1.20 [facility] Comment: Critical result called to and read back by Soha Lopez on 02/09/2025 17:31:34 CDT _ to Shira Quijano . Interpretive data Oral anticoagulant therapeutic ranges: Venous thromboembolism prophylaxis or treatment: 2.0-3.0 CARDIOLOGY Standard range: 2.0-3.0 High-intensity range: 2.5-3.5 Refer to indication-specific guidelines for appropriate target ranges for prosthetic heart valve replacement. Current interpretive data was last revised on 2019. Blood 02/09/2025 3:50 PM CDT 02/09/2025 3:50 PM CDT Narrative KEREN - 02/09/2025 5:32 PM CDT Patient is just starting on warfarin and will have additional lab that need drawn. us Roxanne Werner MD LAB BLOOD ORDERABLES F inal Result [facility] [id number] Department [place] [address] * XR KUB (01/22/2025 12:17 PM CDT) Anatomical Region Laterality Modality Body, Abdomen N/A Computed Radiogr aphy 01/22/2025 1:28 PM CDT Impressions 01/22/2025 1:28 PM CDT Moderate fecal impaction. Electronically signed by: Osorio Maza M.D. Narrative 01/22/2025 1:28 PM CDT EXAMINATION: XR KUB HISTORY: The patient is a 54-year-old female who presents with abdominal pain. TECHNIQUE: Supine view of the abdomen. FINDINGS: Fecal impaction. No dilated small or large bowel loops are seen. Procedure Note Osorio Maza MD - 01/22/2025 EXAMINATION: XR KUB HISTORY: The patient is a 54-year-old female who presents with abdominal pain. TECHNIQUE: Supine view of the abdomen. FINDINGS: Fecal impaction. No dilated small or large bowel loops are seen. IMPRESSION: Moderate fecal impaction. Electronically signed by: Osorio Maza M.D. Meir Ibrahim MD IMG XR PROCEDURES Final Resul t * Differential, auto (01/22/2025 11:38 AM CDT) Neutrophil abs 4.19 1.50 - 6.50 K/cumm Imm gran abs 0.03 0.00 - 0.10 K/cumm [facility] Lymphocyte abs 1.59 0.80 - 3.30 K/cumm [facility] Monocyte abs 0.67 0.20 - 0.80 K/cumm [facility] Eosinophil abs 0.02 0.00 - 0.50 K/cumm [facility] Basophil abs 0.03 0.00 - 0.10 K/cumm [facility] Neutrophil pct 64.1 % [facility] Comment: Interpretive Data Percent cell count reference ranges are not reported, since discordance with absolute values may lead to misinterpretation of CBC data. Current Interpretive Data was last revised on 2017. Imm gran pct 0.5 % [facility] Comment: Interpretive Data Percent cell count reference ranges are not reported, since discordance with absolute values may lead to misinterpretation of CBC data. Current Interpretive Data was last revised on 2017. Lymphocyte pct 24.3 % [facility] Comment: Interpretive Data Percent cell count reference ranges are not reported, since discordance with absolute values may lead to misinterpretation of CBC data. Current Interpretive Data was last revised on 2017. Monocyte pct 10.3 % [facility] Comment: Interpretive Data Percent cell count reference ranges are not reported, since discordance with absolute values may lead to misinterpretation of CBC data. Current Interpretive Data was last revised on 2017. Eosinophil pct 0.3 % [facility] Comment: Interpretive Data Percent cell count reference ranges are not reported, since discordance with absolute values may lead to misinterpretation of CBC data. Current Interpretive Data was last revised on 2017. Basophil pct 0.5 % [facility] Comment: Interpretive Data Percent cell count reference ranges are not reported, since discordance with absolute values may lead to misinterpretation of CBC data. Current Interpretive Data was last revised on 2017. Blood 01/22/2025 11:3 8 AM CDT 01/22/2025 11:38 AM CDT Meir Ibrahim MD LAB BLOOD ORDERABLES Final Re sult Performing Organization Address [facility]/ZIP Co de Phone Number KEREN GAMEZ [address] [address] Department [place] [address] * (ABNORMAL) Urinalysis reflex to microscopic and culture Urine (01/22/2025 11:38 AM CDT) Color, ur Yellow Yellow Clarity, ur Clear Clear [facility] Specific gravity, ur 1.009 1.003 - 1.030 [facility] pH, urine 7.0 [facility] Comment: Interpretive Data U rine pH is affected by diet, medications, systemic acid-base disturbances, and renal tubular function. pH may affect urinary stone formation. For example, urine pH below 6.0 may help reduce the tendency for calcium phosphate stones and pH greater than 6.0 may reduce the tendency for uric acid stone formation. Source: [facility] Get Me Listed Current Interpretive Data was last revised on 2017 Protein, ur ql Negative Negative [facility] Glucose, ur ql 4+(A) Negative [facility] Ketones, ur Negative Negative [facility] Bilirubin, ur Negative Negative [facility] Blood, ur Negative Negative [facility] Urobilinogen, ur <2.0 <2.0 mg/dL [facility] Nitrite, ur Negative Negative [facility] Leukocyte esterase, ur Negative Negative [facility] UA reflex comment Reflex conditions for microscopic UA and culture not met. [facility] Urine 01/22/2025 11:3 8 AM CDT 01/22/2025 11:38 AM CDT Meir Ibrahim MD LAB MICROBIOLOGY - GENERAL OR DERABLES Final Result [facility] [address] [address] Department of Laboratories [place], [place] [id number] * (ABNORMAL) CBC with auto differential (01/22/2025 11:38 AM CDT) WBC 6.53 3.80 - 9.90 K/cumm Hgb 14.7 11.9 - 15.5 g/dL [facility] Hct 46.1(H) 35.6 - 45.5 % [facility] Plt 343 150 - 400 K/cumm [facility] MPV 10.6 9.1 - 12.3 fL [facility] RBC 5.41(H) 3.90 - 5.20 M/cumm [facility] MCV 85.2 81.3 - 96.4 fL [facility] MCH 27.2 27.1 - 33.3 pg [facility] MCHC 31.9(L) 32.3 - 35.7 g/dL [facility] RDW CV 14.4 11.1 - 14.9 % [facility] RDW SD 45.0 35.7 - 48.1 fL [facility] NRBC abs 0.00 0.00 - 0.01 K/cumm [facility] Blood 01/22/2025 11:3 8 AM CDT 01/22/2025 11:38 AM CDT us Meir Ibrahim MD LAB BLOOD ORDERABLES Final Re sult [facility] [id number] [address] Department [place] [address] * (ABNORMAL) Protime-INR (01/12/2025 3:07 PM CDT) PT 20.2(H) 10.2 - 13.5 sec INR 1.81(H) 0.90 - 1.20 [facility] Comment: Interpretive data Oral anticoagulant therapeutic ranges: Venous thromboembolism prophylaxis or treatment: 2.0-3.0 CARDIOLOGY Standard range: 2.0-3.0 High-intensity range: 2.5-3.5 Refer to indication-specific guidelines for appropriate target ranges for prosthetic heart valve replacement. Current interpretive data was last revised on 2019. Blood 01/12/2025 3:07 PM CDT 01/12/2025 3:07 PM CDT Narrative [facility] - 01/12/2025 3:25 PM CDT Patient is just starting on warfarin and will have additional lab that need drawn. Roxanne Werner MD LAB BLOOD ORDERABLES F inal Result [facility] [id number] Department [place] [address] * Screening Mammogram Bilateral W Gustavo (01/04/2025 9:19 AM CDT) Anatomical Region Laterality Modality Breast Bilateral Mammography Impressions 01/04/2025 10:44 AM CDT Bilateral No evidence of malignancy in either breast. OVERALL BI-RADS FINAL ASSESSMENT: 1 - Negative RECOMMENDATION: Recommend bilateral annual screening mammography. Narrative 01/04/2025 10:44 AM CDT EXAMINATION: Screening Mammogram Bilateral W Gustavo: 01/04/2025 COMPARISON: Relevant prior studies available at the time of interpretation were reviewed, including the most recent mammogram on: 01/03/2024. TECHNIQUE: Mammography was performed with 2D and 3D digital breast tomosynthesis (DBT) images. CAD was utilized. BREAST PARENCHYMAL COMPOSITION: There are scattered areas of fibroglandular density. FINDINGS: Bilateral There is no suspicious mass, calcification, or architectural distortion in either breast. Karolyn Evans NP IMG MAMMO PROCEDURES Final R esult * (ABNORMAL) Protime-INR (01/01/2025 10:19 AM CDT) PT 14.9(H) 10.2 - 13.5 sec INR 1.33(H) 0.90 - 1.20 [facility] Comment: Interpretive data Oral anticoagulant therapeutic ranges: Venous thromboembolism prophylaxis or treatment: 2.0-3.0 CARDIOLOGY Standard range: 2.0-3.0 High-intensity range: 2.5-3.5 Refer to indication-specific guidelines for appropriate target ranges for prosthetic heart valve replacement. Current interpretive data was last revised on 2019. Blood 01/01/2025 10:1 9 AM CDT 01/01/2025 10:19 AM CDT Narrative KEREN - 01/01/2025 10:42 AM CDT Patient is just starting on warfarin and will have additional lab that need drawn. Roxanne Werner MD LAB BLOOD ORDERABLES F inal Result [facility] [id number] Department [place] [address] * CT Head W Contrast (12/27/2024 4:36 AM CDT) Anatomical Region Laterality Modality Head and Neck N/A Computed Tomogra phy 12/27/2024 4:15 AM CDT Impressions 12/27/2024 7:47 AM CDT 1. No acute hemorrhage. 2. Cerebral volume loss and white matter changes as described above. 3. No identified vascular occlusion or aneurysm. 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 4. Major dural venous sinuses are visualized patent. Stat report by [facility] Electronically signed by: Bartolome Mcintyre M.D. Narrative 12/27/2024 7:47 AM CDT EXAMINATION: Head CT with contrast HISTORY: Headache, new onset (Age >= 51y) CTV - assess for venous thrombosis TECHNIQUE: CT of the brain was performed with images acquired from skull base to vertex after the uneventful administration of intravenous contrast. With CTA of the intracranial vessels. Contrast information: 100 mL of Optiray 350 COMPARISON: CT HEAD WO CONTRAST 12/26/2024 FINDINGS: Brain: No intracranial hemorrhage. There is mild cerebral volume loss/atrophy. Mild patchy hypodensity is again seen in the cerebral white matter. This change is nonspecific but may be related to the presence of chronic ischemia with microvascular distribution. No focal pathologic enhancement. No identified mass or acute mass effect. Cerebral ventricles: The ventricles are mildly enlarged. Bones/joints: Unremarkable. No acute fracture. Paranasal sinuses: Visualized sinuses are unremarkable. No fluid levels. Mastoid air cells: Visualized mastoid air cells are well aerated. Vasculature: The vessels of the efxrjh-cr-Oeamcs are patent, without identified aneurysm. Bilateral vertebral arteries and basilar artery are small in caliber. 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 Atherosclerotic changes of intracranial carotid artery segments. Veins: Major dural venous sinuses are visualized patent. Procedure Note Bartolome Mcintyre MD - 12/27/2024 EXAMINATION: Head CT with contrast HISTORY: Headache, new onset (Age >= 51y) CTV - assess for venous thrombosis TECHNIQUE: CT of the brain was performed with images acquired from skull base to vertex after the uneventful administration of intravenous contrast. With CTA of the intracranial vessels. Contrast information: 100 mL of Optiray 350 COMPARISON: CT HEAD WO CONTRAST 12/26/2024 FINDINGS: Brain: No intracranial hemorrhage. There is mild cerebral volume loss/atrophy. Mild patchy hypodensity is again seen in the cerebral white matter. This change is nonspecific but may be related to the presence of chronic ischemia with microvascular distribution. No focal pathologic enhancement. No identified mass or acute mass effect. Cerebral ventricles: The ventricles are mildly enlarged. Bones/joints: Unremarkable. No acute fracture. Paranasal sinuses: Visualized sinuses are unremarkable. No fluid levels. Mastoid air cells: Visualized mastoid air cells are well aerated. Vasculature: The vessels of the kskrcs-vm-Xeitry are patent, without identified aneurysm. Bilateral vertebral arteries and basilar artery are small in caliber. 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 Atherosclerotic changes of intracranial carotid artery segments. Veins: Major dural venous sinuses are visualized patent. IMPRESSION: 1. No acute hemorrhage. 2. Cerebral volume loss and white matter changes as described above. 3. No identified vascular occlusion or aneurysm. 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 4. Major dural venous sinuses are visualized patent. Stat report by [facility] Electronically signed by: Bartolome Mcintyre M.D. Ayad Gonsalez MD IM CT PROCEDURES Fin al Result * (ABNORMAL) Troponin T high-sensitivity 4-hour (12/27/2024 12:25 AM CDT) Trop T hs 97(H) <=14 ng/L Comment: Interpretive Data For further hscTnT resources including the diagnostic algorithm and an aid in interpretation, copy and paste this link: https://nrl.testcatalog.org/show/hsTrop Current Interpretive Data last revised 2020. Trop T hs pct delta -6 % [facility] Trop T hs interp Equivocal [facility] Blood 12/27/2024 12:2 5 AM CDT 12/27/2024 1:01 AM CDT Calixto Prince MD LAB BLOOD ORDERABLES Yessica l Result Performing Organization Address [facility] de Phone Number [facility] [id number] Department [place] [address] * (ABNORMAL) Protime-INR (12/27/2024 12:25 AM CDT) PT 16.1(H) 10.2 - 13.5 sec INR 1.43(H) 0.90 - 1.20 [facility] Comment: Interpretive data Oral anticoagulant therapeutic ranges: Venous thromboembolism prophylaxis or treatment: 2.0-3.0 CARDIOLOGY Standard range: 2.0-3.0 High-intensity range: 2.5-3.5 Refer to indication-specific guidelines for appropriate target ranges for prosthetic heart valve replacement. Current interpretive data was last revised on 2019. Blood 12/27/2024 12:2 5 AM CDT 12/27/2024 12:38 AM CDT Calixto Prince MD LAB BLOOD ORDERABLES Yessica l Result Performing Organization Address [facility] de Phone Number [facility] [address] Department [place] [address] * (ABNORMAL) Troponin T high-sensitivity 2-hour (12/26/2024 10:46 PM CDT) Trop T hs 94(H) <=14 ng/L Comment: Interpretive Data For further hscTnT resources including the diagnostic algorithm and an aid in interpretation, copy and paste this link: https://nrl.testcatalog.org/show/hsTrop Current Interpretive Data last revised 2020. 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 Narrative 12/27/2024 7:36 AM CDT EXAMINATION: CT HEAD WO CONTRAST HISTORY: Headache ORDER DATE: 12/26/2024 9:45 PM TECHNIQUE: CT imaging of the head is performed without the use of intravascular contrast with transaxial imaging from the skull base to the vertex with 2-D reformats. COMPARISON:NONE FINDINGS: There is decreased attenuation within each centrum semiovale consistent with chronic microvascular ischemic changes. There is prominence of the ventricles secondary to central and generalized cortical atrophy. There is no mass effect, midline shift or intraventricular or parenchymal hemorrhage. There are no extra-axial fluid collections. The paranasal sinuses are predominantly clear with minimal scattered mucosal thickening and without air- fluid levels. The mastoids demonstrate mild partial opacification of the inferior aspect of each.. There is no sign of skull fracture. There are atherosclerotic cerebrovascular calcifications. Procedure Note Bartolome Mcintyer MD - 12/27/2024 EXAMINATION: CT HEAD WO CONTRAST HISTORY: Headache ORDER DATE: 12/26/2024 9:45 PM TECHNIQUE: CT imaging of the head is performed without the use of intravascular contrast with transaxial imaging from the skull base to the vertex with 2-D reformats. COMPARISON:NONE FINDINGS: There is decreased attenuation within each centrum semiovale consistent with chronic microvascular ischemic changes. There is prominence of the ventricles secondary to central and generalized cortical atrophy. There is no mass effect, midline shift or intraventricular or parenchymal hemorrhage. There are no extra-axial fluid collections. The paranasal sinuses are predominantly clear with minimal scattered mucosal thickening and without air- fluid levels. The mastoids demonstrate mild partial opacification of the inferior aspect of each.. There is no sign of skull fracture. There are atherosclerotic cerebrovascular calcifications. 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 Calixto Prince MD IMG CT PROCEDURES Final R esult * ECG 12 lead (12/26/2024 9:36 PM CDT) 12/26/2024 9:36 PM CDT Narrative [facility] - 12/27/2024 7:49 AM CDT Vent Rate: 55 bpm RR Interval: 1088 msec CO Interval: 0 msec QRS Duration: 86 msec QT Interval: 411 msec QTC Interval: 399 msec P-R-T [place]: 0 - -6 - -2 degrees IMPRESSION: ATRIAL FIBRILLATION WITH SLOW VENTRICULAR RESPONSE NONSPECIFIC T-WAVE ABNORMALITY ABNORMAL RHYTHM ECG Compared to prior EKG atrial fibrillation has replaced sinus bradycardia Electronically Signed By: Daquan Brooks MD [facility] Calixto Prince MD ECG ORDERABLES Final Res ult [facility] * (ABNORMAL) Troponin T high-sensitivity series (baseline, 2hr, 4hr, 6hr) (12/26/2024 8:49 PM CDT) Trop T hs 103(H) <=14 ng/L Comment: Interpretive Data For further hscTnT resources including the diagnostic algorithm and an aid in interpretation, copy and paste this link: https://nrl.testcatalog.org/show/hsTrop Current Interpretive Data last revised 2020. Blood 12/26/2024 8:49 PM CDT 12/26/2024 8:55 PM CDT Calixto Prince MD LAB BLOOD ORDERABLES Edit ed Result - Final Performing Organization Address [facility]/ZIP Co de Phone Number [facility] [address] Department of Laboratories [place], [place] [id number] * Influenza A/B, RSV, and COVID-19 PCR Nasopharyngeal (12/26/2024 8:49 PM CDT) Pathologist [facility] COVID-19 RNA Negative Negative Influenza A RNA Negative Negative [facility] Influenza B RNA Negative Negative [facility] RSV RNA Negative Negative [facility] Comment: Interpretive data: Testing performed by [facility]. This test is performed using the [employer] Xpert Xpress CoV-2/Flu/RSV plus assay. This is a multiplex, real-time reverse transcriptase PCR assay intended for the qualitative detection of nucleic acid from SARS-CoV-2, influenza A, influenza B, and respiratory syncytial virus. This assay has been cleared by the [place] Food and Drug administration. The performance characteristics have been verified by the [facility]. Results must be considered in the clinical context, and a negative result does not rule out infection. Interpretive Data last revised 2023 Nasopharyngeal 12/26/2024 8: 49 PM CDT 12/26/2024 8:53 PM CDT Narrative [facility] - 12/26/2024 9:45 PM CDT Is the Patient experiencing symptoms consistent with COVID?->Yes us Calixto Prince MD LAB MICROBIOLOGY - GENERA L ORDERABLES Final Result Performing Organization Address [facility]/ZIP Co de Phone Number [facility] [address] Department [place] [address] * (ABNORMAL) eGFR (12/26/2024 8:49 PM CDT) Pathologist [facility] eGFR 46(L) >=60 mL/min/1. 73 m2 Comment: Interpretive Data [...] of Race in Diagnosing Kidney Disease, JASN 2020). The CKD-EPI equation should not be used for patients with unstable renal function and has not been validated in children and those over 70. Current interpretive data was last reviewed 2021. Blood 12/26/2024 8:49 PM CDT 12/26/2024 8:55 PM CDT us Calixto Prince MD LAB BLOOD ORDERABLES Yessica payan Result [facility] [address] Department [place] [address] * (ABNORMAL) Differential, auto (12/26/2024 8:49 PM CDT) Neutrophil abs 4.52 1.50 - 6.50 K/cumm Imm gran abs 0.02 0.00 - 0.10 K/cumm [facility] Lymphocyte abs 2.06 0.80 - 3.30 K/cumm [facility] Monocyte abs 1.13(H) 0.20 - 0.80 K/cumm [facility] Eosinophil abs 0.03 0.00 - 0.50 K/cumm [facility] Basophil abs 0.02 0.00 - 0.10 K/cumm [facility] Neutrophil pct 58.0 % [facility] Comment: Interpretive Data Percent cell count reference ranges are not reported, since discordance with absolute values may lead to misinterpretation of CBC data. Current Interpretive Data was last revised on 2017. Imm gran pct 0.3 % [facility] Comment: Interpretive Data Percent cell count reference ranges are not reported, since discordance with absolute values may lead to misinterpretation of CBC data. Current Interpretive Data was last revised on 2017. Lymphocyte pct 26.5 % [facility] Comment: Interpretive Data Percent cell count reference ranges are not reported, since discordance with absolute values may lead to misinterpretation of CBC data. Current Interpretive Data was last revised on 2017. Monocyte pct 14.5 % [facility] Comment: Interpretive Data Percent cell count reference ranges are not reported, since discordance with absolute values may lead to misinterpretation of CBC data. Current Interpretive Data was last revised on 2017. Eosinophil pct 0.4 % [facility] Comment: Interpretive Data Percent cell count reference ranges are not reported, since discordance with absolute values may lead to misinterpretation of CBC data. Current Interpretive Data was last revised on 2017. Basophil pct 0.3 % [facility] Comment: Interpretive Data Percent cell count reference ranges are not reported, since discordance with absolute values may lead to misinterpretation of CBC data. Current Interpretive Data was last revised on 2017. Blood 12/26/2024 8:49 PM CDT 12/26/2024 8:55 PM CDT Calixto Prince MD LAB BLOOD ORDERABLES Yessica payan Result [facility] [address] Department [place] [address] * (ABNORMAL) Urinalysis reflex to microscopic and culture Urine (12/26/2024 8:49 PM CDT) Color, ur Yellow Yellow Clarity, ur Turbid(A) Clear [facility] Specific gravity, ur 1.021 1.003 - 1.030 [facility] pH, urine 6.0 [facility] Comment: Interpretive Data U rine pH is affected by diet, medications, systemic acid-base disturbances, and renal tubular function. pH may affect urinary stone formation. For example, urine pH below 6.0 may help reduce the tendency for calcium phosphate stones and pH greater than 6.0 may reduce the tendency for uric acid stone formation. Source: [facility] [employer] Current Interpretive Data was last revised on 2017 Protein, ur ql Trace Negative [facility] Glucose, ur ql 4+(A) Negative [facility] Ketones, ur Trace Negative [facility] Bilirubin, ur Negative Negative [facility] Blood, ur Negative Negative [facility] Urobilinogen, ur 2.0(A) <2.0 mg/dL [facility] Nitrite, ur Negative Negative [facility] Leukocyte esterase, ur Negative Negative [facility] UA reflex comment Reflex conditions for microscopic UA and culture not met. [facility] Urine 12/26/2024 8:49 PM CDT 12/26/2024 8:54 PM CDT Calixto Prince MD LAB MICROBIOLOGY - GENERA L ORDERABLES Final Result Performing Organization Address [facility] Co de Phone Number [facility] [address] Department [place] [address] * CBC with auto differential (12/26/2024 8:49 PM CDT) WBC 7.78 3.80 - 9.90 K/cumm Hgb 13.8 11.9 - 15.5 g/dL [facility] Hct 42.6 35.6 - 45.5 % [facility] Plt 308 150 - 400 K/cumm [facility] MPV 10.6 9.1 - 12.3 fL [facility] RBC 4.97 3.90 - 5.20 M/cumm [facility] MCV 85.7 81.3 - 96.4 fL [facility] MCH 27.8 27.1 - 33.3 pg [facility] MCHC 32.4 32.3 - 35.7 g/dL [facility] RDW CV 14.2 11.1 - 14.9 % [facility] RDW SD 45.0 35.7 - 48.1 fL [facility] NRBC abs 0.00 0.00 - 0.01 K/cumm [facility] Blood Venous blood specimen / Unknown 12/26/2024 8:49 PM CDT 12/26/2024 8:55 PM CDT Calixto Prince MD LAB BLOOD ORDERABLES Yessica l Result Performing Organization Address [facility]/ZIP Co de Phone Number [facility] [address] Department [place] [address] * (ABNORMAL) Comprehensive metabolic panel (12/26/2024 8:49 PM CDT) Sodium 141 135 - 145 mmol/L Potassium, pl 4.6 3.3 - 4.9 mmol/L [facility] Chloride 102 97 - 110 mmol/L [facility] CO2 26 22 - 32 mmol/L [facility] Anion gap 13 2 - 15 mmol/L [facility] BUN 17 6 - 25 mg/dL [facility] Creatinine 1.22(H) 0.60 - 1.10 mg/dL [facility] Glucose 95 70 - 199 mg/dL [facility] Comment: Interpretive Data Fasting glucose >/= 126 mg/dl is diagnostic for diabetes. Fasting is defined as no caloric intake for at least 8 hours. Fasting glucose between 100 mg/dl to 125 mg/dl is diagnostic of prediabetes. In a patient with classic symptoms of hyperglycemia or hyperglycemic crisis, a random glucose >/= 200 mg/dl is diagnostic for diabetes. In the absence of unequivocal hyperglycemia, results should be confirmed by repeat testing. The classification and Diagnosis of Diabetes Diabetes Care 2021; 46: S19-S40. Current interpretive data was last revised 2022. Calcium 9.9 8.5 - 10.3 mg/dL [facility] Bilirubin, total 0.7 0.1 - 1.2 mg/dL [facility] Protein, pl 7.9 6.5 - 8.5 g/dL [facility] Albumin 4.4 3.5 - 5.0 g/dL [facility] Alk phos 80 40 - 130 Units/L [facility] ALT 16 7 - 45 Units/L [facility] AST 28 10 - 45 Units/L [facility] Blood 12/26/2024 8:49 PM CDT 12/26/2024 8:55 PM CDT us Calixto Prince MD LAB BLOOD ORDERABLES Yessica payan Result [facility] [address] Department [place] [address] * Lipid panel (12/18/2024 2:51 PM CDT) Cholesterol 124 30 - 199 mg/dL Comment: Interpretive Data [...] Data was last revised on 2017. Triglycerides 76 <=149 mg/dL [facility] Comment: Interpretive Data Ages < or = [...] Data was last revised on 2017. HDL 63 >=40 mg/dL [facility] G[facility] Comment: Interpretive Data Ages < or = [...] was last revised on 2017. LDL, calculated 46 <=129 mg/dL [facility] GAME[facility] Comment: Interpretive Data Ages < or = 19 years Acceptable: <110 mg/dL Borderline high: 110-129 mg/dL High: >or= 130 mg/dL Ages > or = 20 years Optimal: <100 mg/dL Near optimal: 100-129 mg/dL Borderline high: 130-159 mg/dL High: >160 mg/dL Calculated using the Salazar LDL-C estimating equation. This equation was implemented on 2023. Prior to this date LDL-C was estimated using the Friedewald equation. Literature References: 1. Expert Panel on Integrated Guidelines for Cardiovascular Health and Risk Reduction in Children and Adolescents. Pediatrics 2011;128:S213 2. NCEP Expert Panel. Circulation 2004;110:227 3. Martin M et al. [place] Cardiol. 2019September 07;5(5):540-548. doi: 10.1001/jamacardio.2020.0013 Current Interpretive Data was last revised on 2023. Non-HDL Cholesterol 61 mg/dL [facility] Comment: Interpretive Data Ages < or = [...] last revised on 2017. Chol/HDL ratio 2 [facility] G[facility] Blood 12/18/2024 2:51 PM CDT 12/18/2024 2:51 PM CDT Roxanne Werner MD LAB BLOOD ORDERABLES F inal Result [facility] [address] Department [place] [address] * XR Chest PA Lateral 2 Views (12/04/2024 1:12 PM CDT) Anatomical Region Laterality Modality Body, Chest N/A Computed Radiogr aphy 12/04/2024 1:19 PM CDT Impressions 12/04/2024 1:19 PM CDT No pneumothorax or pleural effusion. Cardiomediastinal silhouette within normal limits. Mild pulmonary vascular congestion. No acute osseous abnormality. Electronically signed by: John Galicia II, D.O. Narrative 12/04/2024 1:19 PM CDT EXAMINATION: XR CHEST PA LATERAL 2 VIEWS DATE: 12/04/2024 1:00 PM INDICATION: Chest pain COMPARISON: None Procedure Note John Galicia II, DO - 12/04/2024 EXAMINATION: XR CHEST PA LATERAL 2 VIEWS DATE: 12/04/2024 1:00 PM INDICATION: Chest pain COMPARISON: None IMPRESSION: No pneumothorax or pleural effusion. Cardiomediastinal silhouette within normal limits. Mild pulmonary vascular congestion. No acute osseous abnormality. Electronically signed by: John Galicia II, D.O. Meir Ibrahim MD IMG XR PROCEDURES Final Resul t * (ABNORMAL) Protime-INR (12/01/2024 1:40 PM CDT) PT 42.3(H) 9.7 - 13.0 sec INR 3.81(H) 0.90 - 1.20 [facility] Comment: Interpretive data Oral anticoagulant therapeutic ranges: Venous thromboembolism prophylaxis or treatment: 2.0-3.0 CARDIOLOGY Standard range: 2.0-3.0 High-intensity range: 2.5-3.5 Refer to indication-specific guidelines for appropriate target ranges for prosthetic heart valve replacement. Current interpretive data was last revised on 2019. Blood 12/01/2024 1:40 PM CDT 12/01/2024 1:40 PM CDT Narrative [facility] - 12/01/2024 1:57 PM CDT Patient is just starting on warfarin and will have additional lab that need drawn. Roxanne Werner MD LAB BLOOD ORDERABLES F inal Result [facility] [address] Department [place] [address] * (ABNORMAL) Hemoglobin A1c (01/17/2024 11:43 AM CDT) Hgb A1C 6.6(H) 4.0 - 5.6 % Estimated Average Glucose 143 mg/dL [facility] BROWNLEE (BILL) Comment: The ADA recommends reporting an estimated Average Glucose (eAG) with all Hemoglobin A1c results using the equation derived from a study of 507 normal and diabetic adults. Minority populations were underrepresented and children were not included. (Diabetes Care 31:3272-9849, 2008). The eAG is not equivalent to a fasting glucose. Blood 01/17/2024 11:4 3 AM CDT 01/17/2024 11:53 AM CDT Karolyn Evans NP LAB BLOOD ORDERABLES Final R esult KEREN BROWNLEE (BILL) [address] 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 MF: SONIDO Report ID: [id number] Reading Location: [id number] Karolyn Evans NP IMAmy DXA PROCEDURES Final Res ult * HM HEPATITIS C SCREENING (01/29/2022) SCRIBED HCV ab non Blood Historical Provider HEALTH MAINTENANCE Final Result * COLONOSCOPY (07/15/2020 11:52 AM LOG CUTTER) Anatomical Region Laterality Modality Other Narrative Procedure Note Victor Manuel Noguera MD - 07/15/2020 11:52 AM CST [facility] Endoscopy Lab Patient Name: Arabella Hankins [...] by the physician, the nurse and the pharmacy order entry technician in the procedure room. Mental Status Examination: [...] for surveillance. Procedure Code(s): --- Professional --- 58170, Colonoscopy, flexible; with removal of tumor(s), polyp(s), or other lesion(s) by snare technique 76153, 59, Colonoscopy, flexible; with biopsy,single or multiple Diagnosis Code(s): --- Professional --- K63.5, Polyp of colon Z86.010, Personal history of colonic polyps K57.30, Diverticulosis of large intestine without perforation or abscess without bleeding CPT copyright 2019 [employer]. All rights reserved. The codes documented in this report are preliminary and upon slurry control tender reviewmay be revised to meet current compliance requirements. Electronically signed by Victor Manuel Noguera M.D. Victor Manuel Noguera M.D. 07/15/2020 12:24:51 PM Number of Addenda: 0 Note Initiated On: 07/15/2020 11:52 AM us Victor Manuel Noguera MD ENDOSCOPY PROCEDURES Fi nal Result from Last 3 Months or Most Recently Relevant to Health Maintenance Insurance UHC MEDICARE ADVANTAGE Member Subscriber Plan / Payer (Ef fective 2022-Present) Name:Arabella Hankins Relation to Subscriber:Self Name:Arabella Hankins Payer ID:[id number] (NAIC) Type:[facility] MEDICARE Address: [place] [id number] UHC MEDICARE ADVANTAGE Member Subscriber Plan / Payer (Ef fective 2022-) Name:Arabella Hankins Relation to Subscriber:Self Name:Arabella Hankins Payer ID:[id number] (NAIC) Type:[facility] MEDICARE Address: [place] [phone] UHC MEDICARE ADVANTAGE Advance Directives For more information, please contact: [phone] * Full Code (Latest Code Status on File) Date Activated Date Inactivated Comments 06/06/2020 6:21 PM 06/10/2020 10:52 PM * Full Code Date Activated Date Inactivated Comments 06/06/2020 6:21 PM 06/06/2020 6:21 PM Care Teams Veterinary Technician Assistant Relationship Specialty Start Date End Date Meir Ibrahim MD [address] [place] [address] PCP - General Internal Medicine 01/17/25 Roxanne Werner MD [address] [place] [address] Consulting Physician Cardiology 07/31/21 Ata Bronson DPM [address] [place] [address] Consulting Physician Foot and Ankle Surg 07/31/21
--- OUTSIDE RECORDS SUMMARY | 2025-02-22 11:14 | XMS_ITS | Encounter Summary ---
Author Organization [facility] Address [address] [place] [address] Care Team Providers Care Ordained Minister Name Role Phone Perry Smith MD Primary Care Provider [phone] Encounter Details Date Type Department Care Team (Latest Contact Info) Description 11/03/2007 Outpatient Historical HIS IMG-LAB [facility] Carie Ken MD [address] [facility] [address] [place] [address] Other Screening Mammogram Social History Tobacco Use Types Packs/Day Years Used Date Smoking Tobacco: Never Assessed Comments Unknown Sex and Gender Information Value Date Recorded Sex Assigned at Not on file Legal Sex 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 [address] [place], [place] [address] Admit Date: 11/03/2007 ARABELLA MENDEZ Sex: F Admit Prov: CARIE KEN Date: 1950 Primary Care Prov: PERRY SMITH CMRN: [id number] [facility] [address] [place] [address] IMAGING SERVICES Ordering Prov: CARIE KEN Accession Number: [id number] Interpretation BILATERAL FULL FIELD DIGITAL SCREENING MAMMOGRAM [...] Procedure Note Francisco J Rao - 11/08/2007 [facility] [address] [place], [place] [address] Admit Date: 11/03/2007 MARILYNN ARABELLA R Sex: F Admit Prov: CARIE KEN Date: 1950 Primary Care Prov: PERRY SMITH CMRN: [id number] [facility] [address] [place] [address] IMAGING SERVICES Ordering Prov: CARIE KEN Interpretation [...] R/O COVID-19 05/17/2020 05/20/2020 05/20/2020 3:21 PM INTERNAL CONTROLS CONSULTANT documented as of this encounter Care Teams Ordained Minister Relationship Specialty Start Date End Date Perry Smith MD [address] [facility] [address] [place] [address] PCP - General 04/28/01 10/23/20 documented as of this encounter
--- OUTSIDE RECORDS SUMMARY | 2025-02-22 11:14 | XMS_ITS | Encounter Summary ---
Author Organization [facility] Address [address] [place] [address] Care Team Providers Care Barrel Builder Name Role Phone Michael Smith MD Primary Care Provider [phone] Encounter Details Date Type Department Care Team (Late st Contact Info) Description 06/06/2007 Orders Only [facility] Internal Medicine [address] [place] [address] Michael Smith MD [address] [facility] [address] [place] [address] Social History Tobacco Use Types Packs/Day Years Used Date Smoking Tobacco: Never Assessed Comments Unknown Sex and Gender Information Value Date Recorded Sex Assigned at Not on file Legal Sex Female 4:52 AM VP SITE Gender Identity Not on file Sexual Orientation Not on file documented as of this encounter Progress Notes * Michael Smith MD - 09/21/2007 9:17 PM CDT TIME:09:59 am PATIENT`S HOME PHONE: PATIENT`S WORK PHONE: PATIENT`S INSURANCE: [employer] PPO WHO TOOK THE CALL: Sugey Ortega SECTION 1: REQUESTED ACTION va 06/06/07 at 09:59 am: MEDICATION REQUEST: * Michael Smith MD - 09/21/2007 9:17 PM CDT TIME:10:00 am PATIENT`S HOME PHONE: PATIENT`S WORK PHONE: PATIENT`S INSURANCE: [employer] PPO WHO TOOK THE CALL: Sugey Ortega [...] to know her blood type.//mp REQUESTED ACTION va 06/06/07 at 10:00 am: MEDICATION REQUEST: MEDICATION [...] HOME PHONE: PATIENT`S WORK PHONE: PAT[facility]`S INSURANCE[facility] WHO TOOK THE CALL: Sugey Ortega GENERAL INFORMATION PATIENT STATUS: Established Patient. LAST VISIT: 05/30/2007 PCP: PHARMACY NUMBER: [id number] SECTION 1: REQUESTED ACTION va 06/06/07 at 04:46 pm: MEDICATION REQUEST: MEDICATIONS: [...] NEW PRESCRIPTION, 06/06/2007. called in spoke to Chaparrita.//mp Electronically Signed by: Sugey Bostonia on Thursday, June 07, 2007 documented in this encounter Plan of Treatment Not on file documented as of this encounter Visit Diagnoses Not on filedocumented in this encounter Additional Health Concerns Infection Onset Date Last Indicated Resolved Time R/O COVID-19 05/17/2020 05/20/2020 05/20/2020 3:21 PM VP SITE documented as of this encounter Care Teams Barrel Builder Relationship Specialty Start Date End Date Michael Smith MD [address] [facility] [address] [place] [address] PCP - General 04/28/01 10/23/20 documented as of this encounter
--- OUTSIDE RECORDS SUMMARY | 2025-02-22 11:14 | XMS_ITS | Encounter Summary ---
Author Organization [facility] Address [address] [place] [address] Care Team Providers Care Pump Installer Name Role Phone Michael Smith MD Primary Care Provider [phone] Reason for Visit * Reason Comments Medication Refill Encounter Details Date Type Department Care Team (Late st Contact Info) Description 04/04/2018 Refill [facility] [place] [address] [facility] [address] [place] [address] Michael Smith MD 300 [facility] [address] [place] [address] Social History Tobacco Use Types Packs/Day Years Used Date Smoking Tobacco: Never Smokeless Tobacco: Never Alcohol Use Standard Drinks/Week Comments No 0 (1 standard drink = 0.6 oz pur e alcohol) Comments No Sex and Gender Information Value Date Recorded Sex Assigned at Not on file Legal Sex Female 4:52 AM MEDICAL BILLING COORDINATOR Gender Identity Not on file Sexual Orientation Not on file Occupation Industry Job Start Date Job End Date Not on file Not on file Not on file Not on file documented as of this encounter Miscellaneous Notes * Telephone Encounter - Ayse Ward - 04/05/2018 7:06 AM CST Last ov-06/28/2017 Last refill- 05/31/2017 CAL BILLING COORDINATOR documented in this encounter Plan of Treatment Not on file documented as of this encounter Visit Diagnoses Not on filedocumented in this encounter Additional Health Concerns Infection Onset Date Last Indicated Resolved Time R/O COVID-19 05/17/2020 05/20/2020 05/20/2020 3:21 PM MEDICAL BILLING COORDINATOR documented as of this encounter Care Teams Pump Installer Relationship Specialty Start Date End Date Michael Smith MD [address] [facility] [address] [place] [address] PCP - General 04/28/01 10/23/20 documented as of this encounter
--- OUTSIDE RECORDS SUMMARY | 2025-02-22 11:14 | XMS_ITS | Encounter Summary ---
Author Organization [email or web address] Address [address] [place] [address] Care Team Providers Care Radiology Interventional Physician Name Role Phone Michael Smith MD Primary Care Provider [phone] Encounter Details Date Type Department Care Team (Late st Contact Info) Description 10/06/2007 Outpatient Historical [facility] Internal Medicine [address] [place] [address] Michael Smith MD [address] [facility] [address] [place] [address] Social History Tobacco Use Types Packs/Day Years Used Date Smoking Tobacco: Never Assessed Comments Unknown Sex and Gender Information Value Date Recorded Sex Assigned at Not on file Legal Sex Female 4:52 AM NETWORK OPERATIONS CENTER ENGINEER Gender Identity Not on file Sexual [...] R/O COVID-19 05/17/2020 05/20/2020 05/20/2020 3:21 PM NETWORK OPERATIONS CENTER ENGINEER documented as of this encounter Care Teams Radiology Interventional Physician Relationship Specialty Start Date End Date Michael Smith MD 300 [facility] [address] [place] [address] PCP - General 04/28/01 10/23/20 documented as of this encounter
--- OUTSIDE RECORDS SUMMARY | 2025-02-22 11:14 | XMS_ITS | Encounter Summary ---
Author Organization [facility] Address [address] [place] [address] Care Team Providers Care Oracle Soa Developer Name Role Phone Michael Smith MD Primary Care Provider [phone] Encounter Details Date Type Department Care Team (Late st Contact Info) Description 10/06/2007 Orders Only [facility] Internal Medicine [address] [place] [address] Micheal Smith MD [address] [place] [address] Social History Tobacco Use Types Packs/Day Years Used Date Smoking Tobacco: Never Assessed Comments Unknown Sex and Gender Information Value Date Recorded Sex Assigned at Not on file Legal Sex Female 4:52 AM TUMBLER OPERATOR Gender Identity Not on file Sexual Orientation Not on file documented as of this encounter Plan of Treatment Not on file documented as of this encounter Visit Diagnoses Not on filedocumented in this encounter Additional Health Concerns Infection Onset Date Last Indicated Resolved Time R/O COVID-19 05/17/2020 05/20/2020 05/20/2020 3:21 PM TUMBLER OPERATOR documented as of this encounter Care Teams Oracle Soa Developer Relationship Specialty Start Date End Date Michael Smith MD [address] [place] [address] PCP - General 04/28/01 10/23/20 documented as of this encounter
--- OUTSIDE RECORDS SUMMARY | 2025-02-22 11:14 | XMS_ITS | Encounter Summary ---
Author Organization [facility] Address [address] [place] [address] Care Team Providers Care Wholesale Account Manager Name Role Phone Michael Smith MD Primary Care Provider [phone] Encounter Details Date Type Department Care Team (Late st Contact Info) Description 04/13/2007 Outpatient Historical [facility] Internal Medicine [address] [place] [address] Michael Smith MD [address] [place] [address] Social History Tobacco Use Types Packs/Day Years Used Date Smoking Tobacco: Never Assessed Comments Unknown Sex and Gender Information Value Date Recorded Sex Assigned at Not on file Legal Sex Female 4:52 AM NETWORK CONTROL SUPERVISOR Gender Identity Not on file Sexual Orientation Not on file documented as of this encounter Plan of Treatment Not on file documented as of this encounter Visit Diagnoses Not on filedocumented in this encounter Additional Health Concerns Infection Onset Date Last Indicated Resolved Time R/O COVID-19 05/17/2020 05/20/2020 05/20/2020 3:21 PM NETWORK CONTROL SUPERVISOR documented as of this encounter Care Teams Wholesale Account Manager Relationship Specialty Start Date End Date Michael Smith MD [address] [place] [address] PCP - General 04/28/01 10/23/20 documented as of this encounter
--- OUTSIDE RECORDS SUMMARY | 2025-02-22 11:14 | XMS_ITS | Encounter Summary ---
Author Organization [email or web address] Address [address] [place] [address] Care Team Providers Care Dice Table Operator Name Role Phone Michael Smith MD Primary Care Provider [phone] Encounter Details Date Type Department Care Team (Late st Contact Info) Description 05/31/2007 Outpatient Historical [facility] Internal Medicine [address] [place] [address] Michael Smith MD [address] [place] [address] Social History Tobacco Use Types Packs/Day Years Used Date Smoking Tobacco: Never Assessed Comments Unknown Sex and Gender Information Value Date Recorded Sex Assigned at Not on file Legal Sex Female 4:52 AM EXECUTIVE DIRECTOR Gender Identity Not on file Sexual Orientation Not on file documented as of this encounter Plan of Treatment Not on file documented as of this encounter Visit Diagnoses Not on filedocumented in this encounter Additional Health Concerns Infection Onset Date Last Indicated Resolved Time R/O COVID-19 05/17/2020 05/20/2020 05/20/2020 3:21 PM EXECUTIVE DIRECTOR documented as of this encounter Care Teams Dice Table Operator Relationship Specialty Start Date End Date Michael Smith MD [address] [place] [address] PCP - General 04/28/01 10/23/20 documented as of this encounter
--- OUTSIDE RECORDS SUMMARY | 2025-02-22 11:14 | XMS_ITS | Encounter Summary ---
Author Organization [facility] Address [address] [place] [address] Care Team Providers Care Powdered Metal Supervisor Name Role Phone Michael Smith MD Primary Care Provider [phone] Encounter Details Date Type Department Care Team (Late st Contact Info) Description 11/29/2006 Orders Only [facility] Internal Medicine [address] [place] [address] Michael Smith MD [address] [place] [address] Social History Tobacco Use Types Packs/Day Years Used Date Smoking Tobacco: Never Assessed Comments Unknown Sex and Gender Information Value Date Recorded Sex Assigned at Not on file Legal Sex Female 4:52 AM SCRAP HOOKER Gender Identity Not on file Sexual Orientation Not on file documented as of this encounter Plan of Treatment Not on file documented as of this encounter Visit Diagnoses Not on filedocumented in this encounter Additional Health Concerns Infection Onset Date Last Indicated Resolved Time R/O COVID-19 05/17/2020 05/20/2020 05/20/2020 3:21 PM SCRAP HOOKER documented as of this encounter Care Teams Powdered Metal Supervisor Relationship Specialty Start Date End Date Michael Smith MD [address] [place] [address] PCP - General 04/28/01 10/23/20 documented as of this encounter
--- OUTSIDE RECORDS SUMMARY | 2025-02-22 11:14 | XMS_ITS | Encounter Summary ---
Author Organization [facility] Address [address] [place] [address] Care Team Providers Care Release And Technical Records Clerk Name Role Phone Perry Smith MD Primary Care Provider [phone] Encounter Details Date Type Department Care Team (Late st Contact Info) Description 09/12/2007 Outpatient Historical HIS IMG-LAB [facility] Perry Smith MD [address] [facility] [address] [place] [address] Headache Social History Tobacco Use Types Packs/Day Years Used Date Smoking Tobacco: Never Assessed Comments Unknown Sex and Gender Information Value Date Recorded Sex Assigned at Not on file Legal Sex Female 4:52 AM CNC LATHE MACHINE OPERATOR Gender Identity Not on file [...] PM CDT Narrative 09/13/2007 8:26 AM CDT [facility] [address] [place], [place] [address] Admit Date: 09/12/2007 ARABELLA MENDEZ Sex: F Admit Prov: PERRY SMITH Date: 1950 Primary Care Prov: PERRY SMITH CMRN: [id number] [id number] Ordering Prov: N/A Accession Number: [id number] Interpretation MRI ANGIO HEAD WITHOUT CONTRAST 09/12/2007 Indication: Five family members with brain aneurysms. Technique: [id number] MRA sequence was performed as well as [...] SJ Procedure Note Nathan Mcgee - 09/13/[address] [address] Admit Date: 09/12/2007 ARABELLA MENDEZ Sex: F Admit Prov: PERRY SMITH Date: 1950 Primary Care Prov: PERRY SMITH CMRN: [id number] Room: [facility] SSN: [id number] IMAGING SERVICES Ordering Prov: N/A Interpretation MRI ANGIO HEAD WITHOUT CONTRAST 09/12/2007 Indication: Five family members with brain aneurysms. Technique: [id number] MRA sequence was performed as well assagittal [...] R/O COVID-19 05/17/2020 05/20/2020 05/20/2020 3:21 PM CNC LATHE MACHINE OPERATOR documented as of this encounter Care Teams Release And Technical Records Clerk Relationship Specialty Start Date End Date Perry Smith MD [address] [facility] [address] [place] [address] PCP - General 04/28/01 10/23/20 documented as of this encounter
--- OUTSIDE RECORDS SUMMARY | 2025-02-22 11:14 | XMS_ITS | Encounter Summary ---
Author Organization [facility] Address [address] [place] [address] Care Team Providers Care Aerial Planting And Cultivation Manager Name Role Phone Michael Smith MD Primary Care Provider [phone] Encounter Details Date Type Department Care Team (Late st Contact Info) Description 04/11/2007 Outpatient Historical [facility] Internal Medicine [address] [place] [address] Michael Smith MD [address] [facility] [address] [place] [address] Social History Tobacco Use Types Packs/Day Years Used Date Smoking Tobacco: Never Assessed Comments Unknown Sex and Gender Information Value Date Recorded Sex Assigned at Not on file Legal Sex Female 4:52 AM ALUMINUM SHINGLE ROOFER Gender Identity Not on file Sexual Orientation Not on file documented as of this encounter Last Filed Vital Signs Vital Sign Reading Time Taken Comments Blood Pressure 150/92 04/11/2007 10:45 AM ALUMINUM SHINGLE ROOFER Pulse 55 04/11/2007 10:45 AM ALUMINUM SHINGLE ROOFER Temperature - - Respiratory Rate - - Oxygen Saturation - - Inhaled Oxygen Concentration - - Weight 85.3 kg (188 lb) 04/11/2007 10:45 AM ALUMINUM SHINGLE ROOFER Height - - Body Mass Index - - documented in this encounter Plan of Treatment Not on file documented as of this encounter Visit Diagnoses Not on filedocumented in this encounter Additional Health Concerns Infection Onset Date Last Indicated Resolved Time R/O COVID-19 05/17/2020 05/20/2020 05/20/2020 3:21 PM ALUMINUM SHINGLE ROOFER documented as of this encounter Care Teams Aerial Planting And Cultivation Manager Relationship Specialty Start Date End Date Michael Smith MD [address] [facility] [address] [place] [address] PCP - General 04/28/01 10/23/20 documented as of this encounter
--- OUTSIDE RECORDS SUMMARY | 2025-02-22 11:14 | XMS_ITS | Encounter Summary ---
Author Organization [facility] Address [address] [place] [address] Care Team Providers Care Bath Attendant Name Role Phone Michael Smith MD Primary Care Provider [phone] Encounter Details Date Type Department Care Team (Late st Contact Info) Description 05/27/2006 Orders Only [facility] Internal Medicine [address] [place] [address] Michael Smith MD [address] [facility] [address] [place] [address] Social History Tobacco Use Types Packs/Day Years Used Date Smoking Tobacco: Never Assessed Comments Unknown Sex and Gender Information Value Date Recorded Sex Assigned at Not on file Legal Sex Female 4:52 AM VP CLINICAL Gender Identity Not on file Sexual Orientation Not on file documented as of this encounter Progress Notes * Michael Smith MD - 10/04/2007 12:27 PM CDT TIME:09:49 am PATIENT`S HOME PHONE: PATIENT`S WORK PHONE: PATIENT`S INSURANCE: [employer] PPO WHO TOOK THE CALL: Anila Guthrie K GENERAL INFORMATION LAST VISIT: 03/08/06 WHO CALLED: Patient called. ([phone] PHARMACY NUMBER: [id number] SECTION 1: REQUESTED ACTION shannon 05/27/06 at 09:50 am: MEDICATION REQUEST: Pt has had cold c9nb--Faqleqo Cold & Flu--nasal sinus congestion/no sore throat/no fever/no ear pn/yellow phlegm coughed up--cough just won't go away....../[facility] DOCTOR`S RESPONSE: [email or web address] 05/27/06 at 09:56 am MEDICATIONS: Call in to Pharmacy CEFUROXIME AXETIL ORAL TABLET 250 MG, 1 Two Times A Day, 20 Dispensed, status: NEW PRESCRIPTION, 05/27/2006. DOCTOR`S OTHER RESPONSE: She will need to come in if not better. FINAL ACTION: shannon 05/27/06 at 10:26 am Spoke with patient 05/27/06 at 10:27 am. Called pharmacy at 05/27/06 at 10:26 am. .../[facility] Electronically Signed by: Anila Guthrie on May documented in this encounter Plan of Treatment Not on file documented as of this encounter Visit Diagnoses Not on filedocumented in this encounter Additional Health Concerns Infection Onset Date Last Indicated Resolved Time R/O COVID-19 05/17/2020 05/20/2020 05/20/2020 3:21 PM VP CLINICAL documented as of this encounter Care Teams Bath Attendant Relationship Specialty Start Date End Date Michael Smith MD [address] [facility] [address] [place] [address] PCP - General 04/28/01 10/23/20 documented as of this encounter
--- OUTSIDE RECORDS SUMMARY | 2025-02-22 11:14 | XMS_ITS | Encounter Summary ---
Author Organization [facility] Address [address] [place] [address] Care Team Providers Care Monitor Tech Name Role Phone Michael Smith MD Primary Care Provider [phone] Encounter Details Date Type Department Care Team (Late st Contact Info) Description 03/12/2006 Orders Only [facility] Internal Medicine [address] [place] [address] Michael Smith MD [address] [facility] [address] [place] [address] Social History Tobacco Use Types Packs/Day Years Used Date Smoking Tobacco: Never Assessed Comments Unknown Sex and Gender Information Value Date Recorded Sex Assigned at Not on file Legal Sex Female 4:52 AM ORACLE BRM DEVELOPER Gender Identity Not on file Sexual Orientation Not on file documented as of this encounter Progress Notes * Michael Smith MD - 02/21/2008 10:41 PM CDT NURSE NAME: Sugey Ortega * Michael Smith MD - 02/21/2008 10:41 PM CDT TIME:11:30 am PATIENT`S HOME PHONE: PATIENT`S WORK PHONE: PATIENT`S INSURANCE: [employer] PPO WHO TOOK THE CALL: Sugey Ortega [...] Supply, status: DISCONTINUED, 03/12/2006, Comment: faxed to [facility] @ [phone] on 11/12/05/rll. LEVOXYL ORAL TABLET 112 MCG, Take one tab po every day, 30 Dispensed, 5 Fills, status: NEW PRESCRIPTION, 03/12/2006. 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 LAB ORDERS: Order number: [id number] Test Ordered: TSH 899 SECTION 3: RN/BEDSPREAD INSPECTOR RESPONSE: pav03/12/06 at 11:37 am Call to patient regarding lab results:which show cholesterol 225,etq555,hdl 68 ok.Glucose is normal,kidney and liver normal,no [...] R/O COVID-19 05/17/2020 05/20/2020 05/20/2020 3:21 PM ORACLE BRM DEVELOPER documented as of this encounter Care Teams Monitor Tech Relationship Specialty Start Date End Date Michael Smith MD [address] [facility] [address] [place] [address] PCP - General 04/28/01 10/23/20 documented as of this encounter
--- OUTSIDE RECORDS SUMMARY | 2025-02-22 11:14 | XMS_ITS | Encounter Summary ---
Author Organization [facility] Address [address] [place] [address] Care Team Providers Care Job Boss Name Role Phone Michael Smith MD Primary Care Provider [phone] Reason for Visit * Reason Comments Medication Refill Encounter Details Date Type Department Care Team (Late st Contact Info) Description 04/26/2018 Refill [facility] [place] [address] [facility] [address] [place] [address] Michael Smith MD [address] [facility] [address] [place] [address] Social History Tobacco Use Types Packs/Day Years Used Date Smoking Tobacco: Never Smokeless Tobacco: Never Alcohol Use Standard Drinks/Week Comments No 0 (1 standard drink = 0.6 oz pur e alcohol) Comments No Sex and Gender Information Value Date Recorded Sex Assigned at Not on file Legal Sex Female 4:52 AM PHYSICAL PLANT MANAGER Gender Identity Not on file Sexual Orientation Not on file Occupation Industry Job Start Date Job End Date Not on file Not on file Not on file Not on file documented as of this encounter Miscellaneous Notes * Telephone Encounter - Ayse Ward - 04/26/2018 1:50 PM CST Last ov- 06/28/2017 Last refill- 04/13/2017 ICAL PLANT MANAGER documented in this encounter Plan of Treatment Not on file documented as of this encounter Visit Diagnoses Not on filedocumented in this encounter Additional Health Concerns Infection Onset Date Last Indicated Resolved Time R/O COVID-19 05/17/2020 05/20/2020 05/20/2020 3:21 PM PHYSICAL PLANT MANAGER documented as of this encounter Care Teams Job Boss Relationship Specialty Start Date End Date Michael Smith MD [address] [facility] [address] [place] [address] PCP - General 04/28/01 10/23/20 documented as of this encounter
--- OUTSIDE RECORDS SUMMARY | 2025-02-22 11:14 | XMS_ITS | Clinical Summary ---
Author Organization [facility] Address [address] [place] [address] Care Team Providers Care Pressing Machine Operator Name Role Phone Michael Smith MD Primary Care Provider [phone] Source Comments [facility],non-owned Affiliates and Associated Physician Practices is amultiple site organization consisting of ambulatory clinics and hospital sitesin [place] and [place]. This disclosure is being madepursuant to the Care Everywhere program and may not contain all information available regarding this patient. Last updated 18.[employer] [facility] Allergies Active Allergy Reactions Criticality Noted Date [...] Comments Blood Pressure 124/60 06/07/2018 7:59 AM TAKE UP SUPERVISOR Pulse 59 06/07/2018 7:59 AM TAKE UP SUPERVISOR Temperature 36.9 C (98.5 F) 06/07/2018 7:59 AM TAKE UP SUPERVISOR Respiratory Rate 16 06/07/2018 7:59 AM TAKE UP SUPERVISOR Oxygen Saturation 92% 06/07/2018 7:59 AM TAKE UP SUPERVISOR Inhaled Oxygen Concentration - - Weight 87.1 kg (192 lb) 06/14/2018 8:56 AM TAKE UP SUPERVISOR Height 172.7 cm (5' 8) 06/14/2018 8:56 AM TAKE UP SUPERVISOR Body Mass Index 29.19 06/14/2018 8:56 AM TAKE UP SUPERVISOR Plan of Treatment Health Maintenance Due Date Last Done Comments BONE DENSITY TESTING 1950 HEPATITIS C SCREENING 01/29/1966 DTAP/TDAP/TD VACCINES (1 - Tdap) 02/02/1967 PNEUMOCOCCAL VACCINE 50+ (1 of 1 - PCV) 02/02/1998 ZOSTER VACCINE (1 of 2) 02/02/1998 SCREENING FOR DIABETES 06/07/2021 9, 06/06/2018, 06/05/2018 Respiratory Syncytial Virus (RSV) Vaccine Pt: or over 60 yrs (1 - 1-dose 75+ series) 02/02/2023 DEPRESSION SCREENING 05/10/2024 COVID-19 VACCINE ( - 2023-2 5 season) 2025 INFLUENZA VACCINE (#1) 2025 HEPATITIS B VACCINE Aged Out No [...] (CALCIUM TOTAL) AM Draw 06/07/2018 1:19 AM TAKE UP SUPERVISOR from Last 3 Months or Most Recently Relevant to Health Maintenance Results * (ABNORMAL) BASIC METABOLIC PANEL (CALCIUM TOTAL) (06/07/2018 1:19 AM TAKE UP SUPERVISOR) Glucose 137(H) 74 - 106 mg/dL 06/07/2018 1:44 AM [facility] Sodium 139 136 - 145 mmol/L 06/07/2018 1:44 AM [facility] Potassium 3.0(L) 3.5 - 5.1 mmol/L 06/07/2018 1:44 AM [facility] Chloride 108(H) 98 - 107 mmol/L 06/07/2018 1:44 AM [facility] CO2 25 22 - 31 mmol/L 06/07/2018 1:44 AM [facility] Calcium 8.5 8.5 - 10.1 mg/dL 06/07/2018 1:44 AM [facility] Anion Gap 6(L) 8 - 16 mmol/L 06/07/2018 1:44 AM [facility] BUN 9 7 - 21 mg/dL 06/07/2018 1:44 AM [facility] Creatinine 0.85 0.50 - 1.30 mg/dL 06/07/2018 1:44 AM [facility] eGFR by MDRD >60 mL/min/1.7 3m2 06/07/2018 1:44 AM [facility] eGFR by MDRD >60 mL/min/1.7 3m2 06/07/2018 1:44 AM [facility] Blood BLOOD SPECIMEN / Unknown Venipuncture / Unknown 06/07/2018 1:19 AM TAKE UP SUPERVISOR 06/07/2018 1:26 AM TAKE UP SUPERVISOR Fredi Hudson MD LAB - CHEMISTRY ORDERAB LES Final Result [facility] [address] [place] [address] from Last 3 Months or Most Recently Relevant to Health Maintenance Insurance MEDICARE [employer] Advance Directives Documents on File Type Date Recorded Patient Gun Number Expl anation Adv Directive/Living Will/POA 06/08/2018 12:54 PM * Full Code (Latest Code Status on File) Date Activated Date Inactivated Comments 06/06/2018 3:29 PM 06/07/2018 3:41 PM * Full Code Date Activated Date Inactivated Comments 06/05/2018 9:50 PM 06/06/2018 3:29 PM Care Teams Pressing Machine Operator Relationship Specialty Start Date End Date Michael Smith MD PCP - General Internal Medicine 10/13/12
--- OUTSIDE RECORDS SUMMARY | 2025-02-22 11:14 | XMS_ITS | Patient Health Record ---
Author Organization [facility] Address [address] [facility] [address] [place] [address] Care Team Providers Care Railroad Emergency Services Manager Name Role Phone Michael Smith MD Primary Care Provider Unavaila ble Reason For Referral No Information Plan Of Treatment No Information Insurance Providers Payer Name Payer Address Payer Phone Subscriber Number Group Number Insured Name Patient Relationship to Insured Coverage Start Date Coverage End Date Medicare E2 [address] [address] [place] [address] [id number] Arabella Hankins Self - patient is the insured [employer] [facility] [employer] Plan [address] [address] [place] [address] [id number] Arabella Hankins Self - patient is the insured
--- OUTSIDE RECORDS SUMMARY | 2025-02-22 11:15 | XMS_ITS | Encounter Summary ---
Author Organization [facility] Address [address] [place] [address] Care Team Providers Care Multiple Sclerosis Nurse Name Role Phone Michael Smith MD Primary Care Provider [phone] Encounter Details Date Type Department Care Team (Late st Contact Info) Description 03/08/2006 Orders Only [facility] Internal Medicine [address] [place] [phone] Michael Smith MD [address] [facility] [address] [place] [address] Social History Tobacco Use Types Packs/Day Years Used Date Smoking Tobacco: Never Assessed Comments Unknown Sex and Gender Information Value Date Recorded Sex Assigned at Not on file Legal Sex Female 4:52 AM CREATIVE SERVICES INTERN Gender Identity Not on file Sexual Orientation [...] may have bruised it. CURRENT MEDICATION LIST: JFLOIKATVO-BVUE-MPWYTATE ORAL TABLET 50-325-40 MG, Take one tablet [...] golfing, walking. PHYSICAL EXAMINATION: CONSTITUTIONAL: GENERAL APPEARANCE: -Azerbaijani female, in no acute distress. EYES: PUPILS: [...] No edema. BREAST/CHEST: EXAM DONE BY PATIENT'S CYBER SYSTEMS ENGINEER. LYMPHATICS: No lymphadenopathy in the neck, axillae, or groin. GASTROINTESTINAL: ABDOMEN: Soft, non-tender, without masses. Bowel sounds active. LIVER/SPLEEN/KIDNEY: No hepatosplenomegaly, tenderness or nodularity. Kidneys not palpable. GENITOURINARY: EXTERNAL/VAGINAL: GENITAL EXAMINATION NOT DONE, PATIENT'S EXAM PERFORMED BY HER CYBER SYSTEMS ENGINEER. MUSCULOSKELETAL EXAM: GAIT/STATION: Normal gait. EXTREMITIES: LEFT [...] or tightening. Wears wig NEUROLOGIC: CRANIAL NERVES: casting finisher II-XII grossly intact. SENSATION: Normal vibration sensation [...] 1000mcg per month. LAB ORDERS: Order number: [id number] Test Ordered: CBC (INCLUDES DIFF/PLT) 6399 Order number: [id number] Test Ordered: VITAMIN B12 927 401.1-HYPERTENSION ESSENTIAL BENIGN ASSESSMENT: The blood pressure remains satisfactory. Will not change medication, continue to monitor for complications. Will check laboratory to assess disease effect, to assess medication effect. LAB ORDERS: Order number: [id number] Test Ordered: COMPREHENSIVE METABOLIC PANEL 87189 Order number: [id number] Test Ordered: LIPID PANEL 7600 Order number: [id number] Test Ordered: URINALYSIS, COMPLETE 5463 244.9-HYPOTHYROIDISM ASSESSMENT: The patient appears stable. Will follow for signs of hypothyroidism. Will not change medication, continue to monitor for complications. Will check laboratory for possible medication adjustment. 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 ECHO done last year. She has no symptoms and has good valve action. She is to take antibiotic prophylaxis. I think an echo next year will be adequate. LAB ORDERS: Order number: [id number] Test Ordered: EKG WITH INTERPRETATION AND REPORT 56941 719.44-OTHER AND UNSPECIFIED DISORDERS OF JOINT ASSESSMENT: Suspect contusion of the thumb. This should heal with no difficulty. If failing to improve with rest over two weeks she will call. V06.1-NEED FOR VACCINE MYAOWNFMEZ-ULNVJBU-UPISDMRYF LAB ORDERS: Order number: [id number] Test Ordered: INJ-TDAP 11 YRS OR OLDER [address]1992 211.3-COLON POLYP(S) ASSESSMENT: She is aware of [...] R/O COVID-19 05/17/2020 05/20/2020 05/20/2020 3:21 PM CREATIVE SERVICES INTERN documented as of this encounter Care Teams Multiple Sclerosis Nurse Relationship Specialty Start Date End Date Michael Smith MD [address] [facility] [address] [place] [address] PCP - General 04/28/01 10/23/20 documented as of this encounter
--- OUTSIDE RECORDS SUMMARY | 2025-02-22 11:15 | XMS_ITS | Encounter Summary ---
Author Organization [email or web address] Address [address] [place] [address] Care Team Providers Care Professor Of Medicine Name Role Phone Michael Smith MD Primary Care Provider [phone] Encounter Details Date Type Department Care Team (Late st Contact Info) Description 10/07/2004 Outpatient Historical [facility] Internal Medicine [address] [place] [address] Michael Smith MD [address] [place] [address] Social History Tobacco Use Types Packs/Day Years Used Date Smoking Tobacco: Never Assessed Comments Unknown Sex and Gender Information Value Date Recorded Sex Assigned at Not on file Legal Sex Female 4:52 AM OUTSOLE CUTTER MACHINE Gender Identity Not on file Sexual Orientation Not on file documented as of this encounter Plan of Treatment Not on file documented as of this encounter Visit Diagnoses Not on filedocumented in this encounter Additional Health Concerns Infection Onset Date Last Indicated Resolved Time R/O COVID-19 05/17/2020 05/20/2020 05/20/2020 3:21 PM OUTSOLE CUTTER MACHINE documented as of this encounter Care Teams Professor Of Medicine Relationship Specialty Start Date End Date Michael Smith MD [address] [place] [address] PCP - General 04/28/01 10/23/20 documented as of this encounter
--- OUTSIDE RECORDS SUMMARY | 2025-02-22 11:15 | XMS_ITS | Encounter Summary ---
Author Organization [facility] Address [address] [place] [address] Care Team Providers Care Entertainment Musician Name Role Phone Michael Smith MD Primary Care Provider [phone] Encounter Details Date Type Department Care Team (Late st Contact Info) Description 09/27/2006 Orders Only [facility] Internal Medicine [address] [place] [phone] Michael Smith MD [address] [place] [address] Social History Tobacco Use Types Packs/Day Years Used Date Smoking Tobacco: Never Assessed Comments Unknown Sex and Gender Information Value Date Recorded Sex Assigned at Not on file Legal Sex Female 4:52 AM SUPERVISOR CABINETMAKER Gender Identity Not on file Sexual Orientation Not on file documented as of this encounter Plan of Treatment Not on file documented as of this encounter Visit Diagnoses Not on filedocumented in this encounter Additional Health Concerns Infection Onset Date Last Indicated Resolved Time R/O COVID-19 05/17/2020 05/20/2020 05/20/2020 3:21 PM SUPERVISOR CABINETMAKER documented as of this encounter Care Teams Entertainment Musician Relationship Specialty Start Date End Date Michael Smith MD [address] [place] [address] PCP - General 04/28/01 10/23/20 documented as of this encounter
--- OUTSIDE RECORDS SUMMARY | 2025-02-22 11:15 | XMS_ITS | Encounter Summary ---
Author Organization [facility] Address [address] [facility] Attn: Epic Prelude ADT [place] [address] Care Team Providers Care Deputy Commissioner Name Role Phone Michael Smith MD Primary Care Provider Encounter Details Date Type Department Care Team (Late st Contact Info) Description 06/18/1993 Outpatient Historical Michael Smith MD [address] [place] [address] Social History Tobacco Use Types Packs/Day Years Used Date Smoking Tobacco: Never Assessed Comments Unknown Sex and Gender Information Value Date Recorded Sex Assigned at Not on file Legal Sex Female 4:52 AM COMMERCIAL GREEN RETROFIT ARCHITECT Gender Identity Not on file Sexual Orientation Not on file documented as of this encounter Plan of Treatment Not on file documented as of this encounter Visit Diagnoses Not on filedocumented in this encounter Additional Health Concerns Infection Onset Date Last Indicated Resolved Time R/O COVID-19 05/17/2020 05/20/2020 05/20/2020 3:21 PM COMMERCIAL GREEN RETROFIT ARCHITECT documented as of this encounter Care Teams Deputy Commissioner Relationship Specialty Start Date End Date Michael Smith MD [address] [place] [address] PCP - General 04/28/01 10/23/20 documented as of this encounter
--- OUTSIDE RECORDS SUMMARY | 2025-02-22 11:15 | XMS_ITS | Encounter Summary ---
Author Organization [facility] Address [address] [place] [address] Care Team Providers Care Field Geologist Name Role Phone Michael Smith MD Primary Care Provider [phone] Encounter Details Date Type Department Care Team (Late st Contact Info) Description 11/11/2004 Outpatient Historical [facility] Internal Medicine [address] [place] [address] Michael Smith MD [address] [place] [address] Social History Tobacco Use Types Packs/Day Years Used Date Smoking Tobacco: Never Assessed Comments Unknown Sex and Gender Information Value Date Recorded Sex Assigned at Not on file Legal Sex Female 4:52 AM RECORDER HELPER SEISMOGRAPH Gender Identity Not on file Sexual Orientation Not on file documented as of this encounter Plan of Treatment Not on file documented as of this encounter Visit Diagnoses Not on filedocumented in this encounter Additional Health Concerns Infection Onset Date Last Indicated Resolved Time R/O COVID-19 05/17/2020 05/20/2020 05/20/2020 3:21 PM RECORDER HELPER SEISMOGRAPH documented as of this encounter Care Teams Field Geologist Relationship Specialty Start Date End Date Michael Smith MD [address] [place] [address] PCP - General 04/28/01 10/23/20 documented as of this encounter
--- OUTSIDE RECORDS SUMMARY | 2025-02-22 11:15 | XMS_ITS | Encounter Summary ---
Author Organization [facility] Address [address] [place] [address] Care Team Providers Care Relief Operator Name Role Phone Michael Smith MD Primary Care Provider [phone] Encounter Details Date Type Department Care Team (Late st Contact Info) Description 04/30/2003 Outpatient Historical [facility] Internal Medicine [address] [place] [address] Michael Smith MD [address] [place] [address] Social History Tobacco Use Types Packs/Day Years Used Date Smoking Tobacco: Never Assessed Comments Unknown Sex and Gender Information Value Date Recorded Sex Assigned at Not on file Legal Sex Female 4:52 AM PRODUCTION TESTER Gender Identity Not on file Sexual Orientation Not on file documented as of this encounter Plan of Treatment Not on file documented as of this encounter Visit Diagnoses Not on filedocumented in this encounter Additional Health Concerns Infection Onset Date Last Indicated Resolved Time R/O COVID-19 05/17/2020 05/20/2020 05/20/2020 3:21 PM PRODUCTION TESTER documented as of this encounter Care Teams Relief Operator Relationship Specialty Start Date End Date Michael Smith MD [address] [place] [address] PCP - General 04/28/01 10/23/20 documented as of this encounter
--- OUTSIDE RECORDS SUMMARY | 2025-02-22 11:15 | XMS_ITS | Encounter Summary ---
Author Organization [facility] Address [address] [place] [address] Care Team Providers Care Roll Tube Setter Name Role Phone Michael Smith MD Primary Care Provider [phone] Encounter Details Date Type Department Care Team (Late st Contact Info) Description 08/25/2002 Outpatient Historical [facility] Internal Medicine [address] [place] [address] Michael Smith MD [address] [place] [address] Social History Tobacco Use Types Packs/Day Years Used Date Smoking Tobacco: Never Assessed Comments Unknown Sex and Gender Information Value Date Recorded Sex Assigned at Not on file Legal Sex Female 4:52 AM COPPER TAPPER Gender Identity Not on file Sexual Orientation Not on file documented as of this encounter Plan of Treatment Not on file documented as of this encounter Visit Diagnoses Not on filedocumented in this encounter Additional Health Concerns Infection Onset Date Last Indicated Resolved Time R/O COVID-19 05/17/2020 05/20/2020 05/20/2020 3:21 PM COPPER TAPPER documented as of this encounter Care Teams Roll Tube Setter Relationship Specialty Start Date End Date Michael Smith MD [address] [place] [address] PCP - General 04/28/01 10/23/20 documented as of this encounter
--- OUTSIDE RECORDS SUMMARY | 2025-02-22 11:15 | XMS_ITS | Encounter Summary ---
Author Organization [facility] Address [address] [place] [address] Care Team Providers Care Telescope Maintenance Name Role Phone Michael Smith MD Primary Care Provider [phone] Encounter Details Date Type Department Care Team (Late st Contact Info) Description 01/30/2005 Outpatient Historical [facility] Internal Medicine [address] [place] [address] Michael Smith MD [address] [place] [address] Social History Tobacco Use Types Packs/Day Years Used Date Smoking Tobacco: Never Assessed Comments Unknown Sex and Gender Information Value Date Recorded Sex Assigned at Not on file Legal Sex Female 4:52 AM PERFORMANCE ARCHITECT Gender Identity Not on file Sexual Orientation Not on file documented as of this encounter Plan of Treatment Not on file documented as of this encounter Visit Diagnoses Not on filedocumented in this encounter Additional Health Concerns Infection Onset Date Last Indicated Resolved Time R/O COVID-19 05/17/2020 05/20/2020 05/20/2020 3:21 PM PERFORMANCE ARCHITECT documented as of this encounter Care Teams Telescope Maintenance Relationship Specialty Start Date End Date Michael Smith MD [address] [place] [address] PCP - General 04/28/01 10/23/20 documented as of this encounter
--- OUTSIDE RECORDS SUMMARY | 2025-02-22 11:15 | XMS_ITS | Encounter Summary ---
Author Organization [facility] Address [address] [place] [address] Care Team Providers Care Client Application Support Engineer Name Role Phone Michael Smith MD Primary Care Provider [phone] Encounter Details Date Type Department Care Team (Late st Contact Info) Description 08/17/2006 Outpatient Historical [facility] Internal Medicine [address] [place] [address] Michael Smith MD [address] [facility] [address] [place] [address] Social History Tobacco Use Types Packs/Day Years Used Date Smoking Tobacco: Never Assessed Comments Unknown Sex and Gender Information Value Date Recorded Sex Assigned at Not on file Legal Sex Female 4:52 AM AUTO ACCESSORIES INSTALLER Gender Identity Not on file Sexual Orientation [...] R/O COVID-19 05/17/2020 05/20/2020 05/20/2020 3:21 PM AUTO ACCESSORIES INSTALLER documented as of this encounter Care Teams Client Application Support Engineer Relationship Specialty Start Date End Date Michael Smith MD [address] [facility] [address] [place] [address] PCP - General 04/28/01 10/23/20 documented as of this encounter
--- OUTSIDE RECORDS SUMMARY | 2025-02-22 11:15 | XMS_ITS | Encounter Summary ---
Author Organization [employer] [facility] Address [address] [place] [address] Care Team Providers Care Enthone Solder Stripper Name Role Phone Michael Smith MD Primary Care Provider [phone] Encounter Details Date Type Department Care Team (Latest Contact Info) Description 10/22/2003 Outpatient Historical [facility] Jonel Vásquez MD [address] [facility] [address] [place] [address] SCREENING MAMM-MAILG NEOPL-OTHER (Primary Dx) Social History Tobacco Use Types Packs/Day Years Used Date Smoking Tobacco: Never Assessed Comments Unknown Sex and Gender Information Value Date Recorded Sex Assigned at Not on file Legal Sex Female 4:52 AM TORCH CUTTER Gender Identity Not on file Sexual Orientation Not on file documented as of this encounter Plan of Treatment Not on file documented as of this encounter Visit Diagnoses Diagnosis Other screening mammogram- Primary documented in this encounter Additional Health Concerns Infection Onset Date Last Indicated Resolved Time R/O COVID-19 05/17/2020 05/20/2020 05/20/2020 3:21 PM TORCH CUTTER documented as of this encounter Care Teams Enthone Solder Stripper Relationship Specialty Start Date End Date Michael Smith MD [address] [facility] [address] [place] [address] PCP - General 04/28/01 10/23/20 documented as of this encounter
--- OUTSIDE RECORDS SUMMARY | 2025-02-22 11:15 | XMS_ITS | Encounter Summary ---
Author Organization [facility] Address [address] [place] [address] Care Team Providers Care Curling Machine Operator Name Role Phone Michael Smith MD Primary Care Provider [phone] Encounter Details Date Type Department Care Team (Late st Contact Info) Description 01/22/2005 Outpatient Historical Division of Neurology [address] [address] Brandon De Leon MD [address] [facility] [address] [address] Social History Tobacco Use Types Packs/Day Years Used Date Smoking Tobacco: Never Assessed Comments Unknown Sex and Gender Information Value Date Recorded Sex Assigned at Not on file Legal Sex Female 4:52 AM IT SUPPORT SPECIALIST Gender Identity Not on file Sexual Orientation Not on file documented as of this encounter Plan of Treatment Not on file documented as of this encounter Visit Diagnoses Not on filedocumented in this encounter Additional Health Concerns Infection Onset Date Last Indicated Resolved Time R/O COVID-19 05/17/2020 05/20/2020 05/20/2020 3:21 PM IT SUPPORT SPECIALIST documented as of this encounter Care Teams Curling Machine Operator Relationship Specialty Start Date End Date Michael Smith MD [address] [facility] [address] [place] [address] PCP - General 04/28/01 10/23/20 documented as of this encounter
--- OUTSIDE RECORDS SUMMARY | 2025-02-22 11:15 | XMS_ITS | Encounter Summary ---
Author Organization [facility] Address [address] [facility] [place] [address] Care Team Providers Care First Front Ventilator Name Role Phone Michael Smith MD Primary Care Provider [phone] Encounter Details Date Type Department Care Team (Late st Contact Info) Description 11/18/2004 Outpatient Historical [facility] Lebron Farr MD [address] [facility] [address] [place] [phone] BENIGN NEOPLASM LG BOWEL (Primary Dx) Social History Tobacco Use Types Packs/Day Years Used Date Smoking Tobacco: Never Assessed Comments Unknown Sex and Gender Information Value Date Recorded Sex Assigned at Not on file Legal Sex Female 4:52 AM FOREST FIRE MANAGEMENT OFFICER Gender Identity Not on file Sexual Orientation Not on file documented as of this encounter Plan of Treatment Not on file documented as of this encounter Visit Diagnoses Diagnosis Benign neoplasm of colon- Primary documented in this encounter Additional Health Concerns Infection Onset Date Last Indicated Resolved Time R/O COVID-19 05/17/2020 05/20/2020 05/20/2020 3:21 PM FOREST FIRE MANAGEMENT OFFICER documented as of this encounter Care Teams First Front Ventilator Relationship Specialty Start Date End Date Michael Smith MD [address] [facility] [address] [place] [address] PCP - General 04/28/01 10/23/20 documented as of this encounter
--- OUTSIDE RECORDS SUMMARY | 2025-02-22 11:15 | XMS_ITS | Encounter Summary ---
Author Organization [employer] Address [address] [place] [address] Care Team Providers Care Assurance Engineer Name Role Phone Michael Smith MD Primary Care Provider Encounter Details Date Type Department Care Team (Late st Contact Info) Description 01/26/2001 Outpatient Historical [facility] Michael Torres MD [address] [place] [address] Social History Tobacco Use Types Packs/Day Years Used Date Smoking Tobacco: Never Assessed Comments Unknown Sex and Gender Information Value Date Recorded Sex Assigned at Not on file Legal Sex Female 4:52 AM HOURLY SALES STAFF Gender Identity Not on file Sexual Orientation Not on file documented as of this encounter Plan of Treatment Not on file documented as of this encounter Visit Diagnoses Not on filedocumented in this encounter Additional Health Concerns Infection Onset Date Last Indicated Resolved Time R/O COVID-19 05/17/2020 05/20/2020 05/20/2020 3:21 PM HOURLY SALES STAFF documented as of this encounter Care Teams Assurance Engineer Relationship Specialty Start Date End Date Michael Smith MD [address] [place] [address] PCP - General 04/28/01 10/23/20 documented as of this encounter
--- OUTSIDE RECORDS SUMMARY | 2025-02-22 11:15 | XMS_ITS | Encounter Summary ---
Author Organization [facility] Address [address] [place] [address] Care Team Providers Care Offensive Coordinator Name Role Phone Perry Smith MD Primary Care Provider [phone] Encounter Details Date Type Department Care Team (Latest Contact Info) Description 07/16/2008 Outpatient Historical [facility] Carie Ken MD [address] [facility] [address] [place] [address] Other Screening Mammogram Social History Tobacco Use Types Packs/Day Years Used Date Smoking Tobacco: Never Comments No Sex and Gender Information Value Date Recorded Sex Assigned at Not on file Legal Sex Female 4:52 AM UNIVERSITY LECTURER Gender Identity Not on file Sexual Orientation [...] PM CDT Narrative 07/18/2008 8:34 AM CDT [facility] [address] [place], [place] [address] Admit Date: 07/16/2008 ARABELLA MENDEZ Sex: F Admit Prov: CARIE KEN Date: 1950 Primary Care Prov: PERRY SMITH COX BRANSONN: [id number] [facility] [phone] IM[facility] SERVICES Ordering Prov: CARIE KEN Accession Number: [id number] Interpretation BILATERAL SCREENING DIGITAL MAMMOGRAMS WITH COMPUTER [...] AMK Procedure Note Jenn Alvarez - 07/18/2008 [address] [address] [place], [place] [address] Admit Date: 07/16/2008 ARABELLA MENDEZ Sex: F Admit Prov: CARIE KEN Date: 1950 Primary Care Prov: PERRY SMITH CMRN: [id number] [facility] [id number] IMAGING SERVICES Ordering Prov: CARIE KEN Interpretation [...] R/O COVID-19 05/17/2020 05/20/2020 05/20/2020 3:21 PM UNIVERSITY LECTURER documented as of this encounter Care Teams Offensive Coordinator Relationship Specialty Start Date End Date Perry Smith MD [address] [facility] [address] [place] [address] PCP - General 04/28/01 10/23/20 documented as of this encounter
--- OUTSIDE RECORDS SUMMARY | 2025-02-22 11:15 | XMS_ITS | Encounter Summary ---
Author Organization [facility] Address [address] [place] [address] Care Team Providers Care Consumer Studies Professor Name Role Phone Mihcael Smith MD Primary Care Provider [phone] Encounter Details Date Type Department Care Team (Late st Contact Info) Description 02/10/2005 Outpatient Historical [facility] Internal Medicine [address] [place] [address] Michael Smith MD [address] [place] [address] Social History Tobacco Use Types Packs/Day Years Used Date Smoking Tobacco: Never Assessed Comments Unknown Sex and Gender Information Value Date Recorded Sex Assigned at Not on file Legal Sex Female 4:52 AM CAKE MIXER Gender Identity Not on file Sexual Orientation Not on file documented as of this encounter Plan of Treatment Not on file documented as of this encounter Visit Diagnoses Not on filedocumented in this encounter Additional Health Concerns Infection Onset Date Last Indicated Resolved Time R/O COVID-19 05/17/2020 05/20/2020 05/20/2020 3:21 PM CAKE MIXER documented as of this encounter Care Teams Consumer Studies Professor Relationship Specialty Start Date End Date Michael Smith MD [address] [place] [address] PCP - General 04/28/01 10/23/20 documented as of this encounter
--- OUTSIDE RECORDS SUMMARY | 2025-02-22 11:15 | XMS_ITS | Encounter Summary ---
Author Organization [facility] Address [address] [place] [address] Care Team Providers Care Plastic Welder Name Role Phone Michael Smith MD Primary Care Provider [phone] Encounter Details Date Type Department Care Team (Latest Contact Info) Description 10/14/2005 Outpatient Historical [facility] Jonel Mulligan MD [address] [facility] [address] [place] [address] Diffuse Cystic Mastopathy (Primary Dx) Social History Tobacco Use Types Packs/Day Years Used Date Smoking Tobacco: Never Assessed Comments Unknown Sex and Gender Information Value Date Recorded Sex Assigned at Not on file Legal Sex Female 4:52 AM CABLEMAN Gender Identity Not on file Sexual Orientation Not on file documented as of this encounter Plan of Treatment Not on file documented as of this encounter Visit Diagnoses Diagnosis Diffuse cystic mastopathy- Primary documented in this encounter Additional Health Concerns Infection Onset Date Last Indicated Resolved Time R/O COVID-19 05/17/2020 05/20/2020 05/20/2020 3:21 PM CABLEMAN documented as of this encounter Care Teams Plastic Welder Relationship Specialty Start Date End Date Michael Smith MD [address] [place] [address] PCP - General 04/28/01 10/23/20 documented as of this encounter
--- OUTSIDE RECORDS SUMMARY | 2025-02-22 11:15 | XMS_ITS | Encounter Summary ---
Author Organization [facility] Address [address] [place] [address] Care Team Providers Care Tail Worker Name Role Phone Michael Smith MD Primary Care Provider [phone] Encounter Details Date Type Department Care Team (Late st Contact Info) Description 11/28/2004 Outpatient Historical [facility] Internal Medicine [address] [place] [address] Michael Smith MD [address] [place] [address] Social History Tobacco Use Types Packs/Day Years Used Date Smoking Tobacco: Never Assessed Comments Unknown Sex and Gender Information Value Date Recorded Sex Assigned at Not on file Legal Sex Female 4:52 AM PUMP OPERATOR [employer] Gender Identity Not on file Sexual Orientation Not on file documented as of this encounter Plan of Treatment Not on file documented as of this encounter Visit Diagnoses Not on filedocumented in this encounter Additional Health Concerns Infection Onset Date Last Indicated Resolved Time R/O COVID-19 05/17/2020 05/20/2020 05/20/2020 3:21 PM PUMP OPERATOR [employer] documented as of this encounter Care Teams Tail Worker Relationship Specialty Start Date End Date Michael Smith MD [address] [place] [address] PCP - General 04/28/01 10/23/20 documented as of this encounter
--- OUTSIDE RECORDS SUMMARY | 2025-02-22 11:15 | XMS_ITS | Encounter Summary ---
Author Organization [facility] Address [address] [place] [address] Care Team Providers Care Maintenance Person Name Role Phone Michael Smith MD Primary Care Provider [phone] Encounter Details Date Type Department Care Team (Late st Contact Info) Description 12/20/2007 Outpatient Historical [facility] GI [facility] Lebron Farr MD [address] [facility] [address] [place] [phone] Social History Tobacco Use Types Packs/Day Years Used Date Smoking Tobacco: Never Comments No Sex and Gender Information Value Date Recorded Sex Assigned at Not on file Legal Sex Female 4:52 AM E TAILER Gender Identity Not on file Sexual Orientation Not on file documented as of this encounter Plan of Treatment Not on file documented as of this encounter Visit Diagnoses Not on filedocumented in this encounter Additional Health Concerns Infection Onset Date Last Indicated Resolved Time R/O COVID-19 05/17/2020 05/20/2020 05/20/2020 3:21 PM E TAILER documented as of this encounter Care Teams Maintenance Person Relationship Specialty Start Date End Date Michael Smith MD [address] [facility] [address] [place] [address] PCP - General 04/28/01 10/23/20 documented as of this encounter
--- OUTSIDE RECORDS SUMMARY | 2025-02-22 11:15 | XMS_ITS | Encounter Summary ---
Author Organization [facility] Address [address] [place] [address] Care Team Providers Care Process Worker Name Role Phone Michael Smith MD Primary Care Provider [phone] Encounter Details Date Type Department Care Team (Late st Contact Info) Description 10/22/2003 Outpatient Historical [facility] Internal Medicine [address] [place] [address] Michael Smith MD [address] [place] [address] Social History Tobacco Use Types Packs/Day Years Used Date Smoking Tobacco: Never Assessed Comments Unknown Sex and Gender Information Value Date Recorded Sex Assigned at Not on file Legal Sex Female 4:52 AM AIR BRUSH ARTIST Gender Identity Not on file Sexual Orientation Not on file documented as of this encounter Plan of Treatment Not on file documented as of this encounter Visit Diagnoses Not on filedocumented in this encounter Additional Health Concerns Infection Onset Date Last Indicated Resolved Time R/O COVID-19 05/17/2020 05/20/2020 05/20/2020 3:21 PM AIR BRUSH ARTIST documented as of this encounter Care Teams Process Worker Relationship Specialty Start Date End Date Michael Smith MD [address] [place] [address] PCP - General 04/28/01 10/23/20 documented as of this encounter
--- OUTSIDE RECORDS SUMMARY | 2025-02-22 11:15 | XMS_ITS | Encounter Summary ---
Author Organization [facility] Address [address] [place] [address] Care Team Providers Care Coal Chute Worker Name Role Phone Michael Smith MD Primary Care Provider [phone] Encounter Details Date Type Department Care Team (Late st Contact Info) Description 03/07/2004 Outpatient Historical [facility] Internal Medicine [address] [place] [address] Michael Smith MD [address] [place] [address] Social History Tobacco Use Types Packs/Day Years Used Date Smoking Tobacco: Never Assessed Comments Unknown Sex and Gender Information Value Date Recorded Sex Assigned at Not on file Legal Sex Female 4:52 AM DIRECTOR OF COLLECTIONS Gender Identity Not on file Sexual Orientation Not on file documented as of this encounter Plan of Treatment Not on file documented as of this encounter Visit Diagnoses Not on filedocumented in this encounter Additional Health Concerns Infection Onset Date Last Indicated Resolved Time R/O COVID-19 05/17/2020 05/20/2020 05/20/2020 3:21 PM DIRECTOR OF COLLECTIONS documented as of this encounter Care Teams Coal Chute Worker Relationship Specialty Start Date End Date Michael Smith MD [address] [place] [address] PCP - General 04/28/01 10/23/20 documented as of this encounter
--- OUTSIDE RECORDS SUMMARY | 2025-02-22 11:15 | XMS_ITS | Encounter Summary ---
Author Organization [facility] Address [address] [place] [address] Care Team Providers Care Borematic Machine Operator Name Role Phone Michael Smith MD Primary Care Provider [phone] Encounter Details Date Type Department Care Team (Late st Contact Info) Description 03/08/2006 Outpatient Historical [facility] Internal Medicine [address] [place] [address] Michael Smith MD [address] [place] [address] Social History Tobacco Use Types Packs/Day Years Used Date Smoking Tobacco: Never Assessed Comments Unknown Sex and Gender Information Value Date Recorded Sex Assigned at Not on file Legal Sex Female 4:52 AM PRODUCTION CONTROL EXPEDITER Gender Identity Not on file Sexual Orientation Not on file documented as of this encounter Plan of Treatment Not on file documented as of this encounter Visit Diagnoses Not on filedocumented in this encounter Additional Health Concerns Infection Onset Date Last Indicated Resolved Time R/O COVID-19 05/17/2020 05/20/2020 05/20/2020 3:21 PM PRODUCTION CONTROL EXPEDITER documented as of this encounter Care Teams Borematic Machine Operator Relationship Specialty Start Date End Date Michael Smith MD [address] [place] [address] PCP - General 04/28/01 10/23/20 documented as of this encounter
--- OUTSIDE RECORDS SUMMARY | 2025-02-22 11:15 | XMS_ITS | Encounter Summary ---
Author Organization [facility] Address [address] [facility] Attn: Epic Prelude ADT [place] [address] Care Team Providers Care Enameler Name Role Phone Michael Smith MD Primary Care Provider Encounter Details Date Type Department Care Team (Late st Contact Info) Description 08/25/1993 Outpatient Historical Michael Smith MD [address] [place] [address] Social History Tobacco Use Types Packs/Day Years Used Date Smoking Tobacco: Never Assessed Comments Unknown Sex and Gender Information Value Date Recorded Sex Assigned at Not on file Legal Sex Female 4:52 AM CROSSBAR SWITCH ADJUSTER Gender Identity Not on file Sexual Orientation Not on file documented as of this encounter Plan of Treatment Not on file documented as of this encounter Visit Diagnoses Not on filedocumented in this encounter Additional Health Concerns Infection Onset Date Last Indicated Resolved Time R/O COVID-19 05/17/2020 05/20/2020 05/20/2020 3:21 PM CROSSBAR SWITCH ADJUSTER documented as of this encounter Care Teams Enameler Relationship Specialty Start Date End Date Michael Smith MD [address] [place] [address] PCP - General 04/28/01 10/23/20 documented as of this encounter
--- OUTSIDE RECORDS SUMMARY | 2025-02-22 11:15 | XMS_ITS | Encounter Summary ---
Author Organization [facility] Address [address] [facility] [address] Care Team Providers Care Life Assurance Representative Name Role Phone Michael Smith MD Primary Care Provider [phone] Encounter Details Date Type Department Care Team (Late st Contact Info) Description 04/28/2001 Outpatient Historical [facility] Lebron Farr MD [address] [facility] [address] [place] [phone] BENIGN NEOPLASM LG BOWEL (Primary Dx) Social History Tobacco Use Types Packs/Day Years Used Date Smoking Tobacco: Never Assessed Comments Unknown Sex and Gender Information Value Date Recorded Sex Assigned at Not on file Legal Sex Female 4:52 AM BIOLOGY SPECIMEN TECHNICIAN Gender Identity Not on file Sexual Orientation Not on file documented as of this encounter Plan of Treatment Not on file documented as of this encounter Visit Diagnoses Diagnosis Benign neoplasm of colon- Primary documented in this encounter Additional Health Concerns Infection Onset Date Last Indicated Resolved Time R/O COVID-19 05/17/2020 05/20/2020 05/20/2020 3:21 PM BIOLOGY SPECIMEN TECHNICIAN documented as of this encounter Care Teams Life Assurance Representative Relationship Specialty Start Date End Date Michael Smith MD [address] [facility] [address] [place] [address] PCP - General 04/28/01 10/23/20 documented as of this encounter
--- OUTSIDE RECORDS SUMMARY | 2025-02-22 11:15 | XMS_ITS | Encounter Summary ---
Author Organization [facility] Address [address] [place] [address] Care Team Providers Care Ophthalmic Surgical Assistant Name Role Phone Michael Smith MD Primary Care Provider [phone] Encounter Details Date Type Department Care Team (Latest Contact Info) Description 11/17/2004 Outpatient Historical HIS CARDIOPULMONARY Michael Smith MD [address] [place] [address] CARDIOMEGALY (Primary Dx) Social History Tobacco Use Types Packs/Day Years Used Date Smoking Tobacco: Never Assessed Comments Unknown Sex and Gender Information Value Date Recorded Sex Assigned at Not on file Legal Sex Female 4:52 AM ENRICHMENT ASSISTANT Gender Identity Not on file Sexual Orientation Not on file documented as of this encounter Plan of Treatment Not on file documented as of this encounter Visit Diagnoses Diagnosis Cardiomegaly- Primary documented in this encounter Additional Health Concerns Infection Onset Date Last Indicated Resolved Time R/O COVID-19 05/17/2020 05/20/2020 05/20/2020 3:21 PM ENRICHMENT ASSISTANT documented as of this encounter Care Teams Ophthalmic Surgical Assistant Relationship Specialty Start Date End Date Michael Smith MD [address] [place] [address] PCP - General 04/28/01 10/23/20 documented as of this encounter
--- OUTSIDE RECORDS SUMMARY | 2025-02-22 11:15 | XMS_ITS | Encounter Summary ---
Author Organization [facility] Address [address] [place] [address] Care Team Providers Care Rug Setter Velvet Name Role Phone Michael Smith MD Primary Care Provider [phone] Encounter Details Date Type Department Care Team (Late st Contact Info) Description 02/22/2004 Outpatient Historical [facility] Internal Medicine [address] [place] [address] Michael Smith MD [address] [place] [address] Social History Tobacco Use Types Packs/Day Years Used Date Smoking Tobacco: Never Assessed Comments Unknown Sex and Gender Information Value Date Recorded Sex Assigned at Not on file Legal Sex Female 4:52 AM INFORMATION TECHNOLOGY ACCOUNT MANAGER Gender Identity Not on file Sexual Orientation Not on file documented as of this encounter Plan of Treatment Not on file documented as of this encounter Visit Diagnoses Not on filedocumented in this encounter Additional Health Concerns Infection Onset Date Last Indicated Resolved Time R/O COVID-19 05/17/2020 05/20/2020 05/20/2020 3:21 PM INFORMATION TECHNOLOGY ACCOUNT MANAGER documented as of this encounter Care Teams Rug Setter Velvet Relationship Specialty Start Date End Date Michael Smith MD [address] [place] [address] PCP - General 04/28/01 10/23/20 documented as of this encounter
--- OUTSIDE RECORDS SUMMARY | 2025-02-22 11:15 | XMS_ITS | Encounter Summary ---
Author Organization [facility] Address [address] [place] [address] Care Team Providers Care Pizza Chef Name Role Phone Michael Smith MD Primary Care Provider [phone] Encounter Details Date Type Department Care Team (Latest Contact Info) Description 09/26/2004 Outpatient Historical [facility] Jonel Mulligan MD [address] [facility] [address] [place] [address] SCREENING MAMM-MAILG NEOPL-OTHER (Primary Dx) Social History Tobacco Use Types Packs/Day Years Used Date Smoking Tobacco: Never Assessed Comments Unknown Sex and Gender Information Value Date Recorded Sex Assigned at Not on file Legal Sex Female 4:52 AM GRINDER BRAKE LINING Gender Identity Not on file Sexual Orientation Not on file documented as of this encounter Plan of Treatment Not on file documented as of this encounter Visit Diagnoses Diagnosis Other screening mammogram- Primary documented in this encounter Additional Health Concerns Infection Onset Date Last Indicated Resolved Time R/O COVID-19 05/17/2020 05/20/2020 05/20/2020 3:21 PM GRINDER BRAKE LINING documented as of this encounter Care Teams Pizza Chef Relationship Specialty Start Date End Date Michael Smith MD [address] [place] [address] PCP - General 04/28/01 10/23/20 documented as of this encounter
--- OUTSIDE RECORDS SUMMARY | 2025-02-22 11:15 | XMS_ITS | Encounter Summary ---
Author Organization [facility] Address [address] [place] [address] Care Team Providers Care Laboratory Geneticist Name Role Phone Michael Smith MD Primary Care Provider [phone] Encounter Details Date Type Department Care Team (Late st Contact Info) Description 03/08/2006 Outpatient Historical [facility] Internal Medicine [address] [place] [address] Michael Smith MD [address] [place] [address] Social History Tobacco Use Types Packs/Day Years Used Date Smoking Tobacco: Never Assessed Comments Unknown Sex and Gender Information Value Date Recorded Sex Assigned at Not on file Legal Sex Female 4:52 AM CONVENTION SERVICES MANAGER Gender Identity Not on file Sexual Orientation Not on file documented as of this encounter Plan of Treatment Not on file documented as of this encounter Visit Diagnoses Not on filedocumented in this encounter Additional Health Concerns Infection Onset Date Last Indicated Resolved Time R/O COVID-19 05/17/2020 05/20/2020 05/20/2020 3:21 PM CONVENTION SERVICES MANAGER documented as of this encounter Care Teams Laboratory Geneticist Relationship Specialty Start Date End Date Michael Smith MD [address] [place] [address] PCP - General 04/28/01 10/23/20 documented as of this encounter
--- OUTSIDE RECORDS SUMMARY | 2025-02-22 11:15 | XMS_ITS | Encounter Summary ---
Author Organization [facility] Address [address] [place] [address] Care Team Providers Care Table Keeper Name Role Phone Michael Smith MD Primary Care Provider [phone] Encounter Details Date Type Department Care Team (Late st Contact Info) Description 03/17/2004 Outpatient Historical [facility] Support Serv. (Adt Cardiology-SJ) [address] [place] [address] Anahi Chaves MD [address] [address] [address] [place] [address] Social History Tobacco Use Types Packs/Day Years Used Date Smoking Tobacco: Never Assessed Comments Unknown Sex and Gender Information Value Date Recorded Sex Assigned at Not on file Legal Sex Female 4:52 AM HARDBOARD GRINDER Gender Identity Not on file Sexual Orientation Not on file documented as of this encounter Plan of Treatment Not on file documented as of this encounter Visit Diagnoses Not on filedocumented in this encounter Additional Health Concerns Infection Onset Date Last Indicated Resolved Time R/O COVID-19 05/17/2020 05/20/2020 05/20/2020 3:21 PM HARDBOARD GRINDER documented as of this encounter Care Teams Table Keeper Relationship Specialty Start Date End Date Michael Smith MD [address] [facility] [address] [place] [address] PCP - General 04/28/01 10/23/20 documented as of this encounter
--- OUTSIDE RECORDS SUMMARY | 2025-02-22 11:15 | XMS_ITS | Encounter Summary ---
Author Organization [facility] Address [address] [place] [address] Care Team Providers Care Count Team Clerk Name Role Phone Michael Smith MD Primary Care Provider Encounter Details Date Type Department Care Team (Latest Contact Info) Description 09/21/2001 Outpatient Historical HIS [facility] Jonel Mulligan MD [address] [facility] [address] [place] [address] FOLLOW-UP EXAM NEC (Primary Dx) Social History Tobacco Use Types Packs/Day Years Used Date Smoking Tobacco: Never Assessed Comments Unknown Sex and Gender Information Value Date Recorded Sex Assigned at Not on file Legal Sex Female 4:52 AM DIRECTOR HOUSEKEEPING Gender Identity Not on file Sexual Orientation Not on file documented as of this encounter Plan of Treatment Not on file documented as of this encounter Visit Diagnoses Diagnosis Other follow-up examination(V67.59)- Primary Other follow-up examination documented in this encounter Additional Health Concerns Infection Onset Date Last Indicated Resolved Time R/O COVID-19 05/17/2020 05/20/2020 05/20/2020 3:21 PM DIRECTOR HOUSEKEEPING documented as of this encounter Care Teams Count Team Clerk Relationship Specialty Start Date End Date Michael Smith MD [address] [place] [address] PCP - General 04/28/01 10/23/20 documented as of this encounter
--- OUTSIDE RECORDS SUMMARY | 2025-02-22 11:15 | XMS_ITS | Encounter Summary ---
Author Organization [facility] Address [address] [place] [address] Care Team Providers Care Make Up Operator Name Role Phone Michael Smith MD Primary Care Provider [phone] Encounter Details Date Type Department Care Team (Late st Contact Info) Description 03/08/2006 Outpatient Historical [facility] Internal Medicine [address] [place] [address] Michael Smith MD [address] [place] [address] Social History Tobacco Use Types Packs/Day Years Used Date Smoking Tobacco: Never Assessed Comments Unknown Sex and Gender Information Value Date Recorded Sex Assigned at Not on file Legal Sex Female 4:52 AM SEAL DELIVERY VEHICLE TEAM TECHNICIAN Gender Identity Not on file Sexual Orientation Not on file documented as of this encounter Plan of Treatment Not on file documented as of this encounter Visit Diagnoses Not on filedocumented in this encounter Additional Health Concerns Infection Onset Date Last Indicated Resolved Time R/O COVID-19 05/17/2020 05/20/2020 05/20/2020 3:21 PM SEAL DELIVERY VEHICLE TEAM TECHNICIAN documented as of this encounter Care Teams Make Up Operator Relationship Specialty Start Date End Date Michael Smith MD [address] [place] [address] PCP - General 04/28/01 10/23/20 documented as of this encounter
--- OUTSIDE RECORDS SUMMARY | 2025-02-22 11:15 | XMS_ITS | Encounter Summary ---
Author Organization [facility] Address [address] [place] [address] Care Team Providers Care Commercial Loan Collection Officer Name Role Phone Michael Smith MD Primary Care Provider [phone] Encounter Details Date Type Department Care Team (Late st Contact Info) Description 02/19/2004 Outpatient Historical [facility] Internal Medicine [address] [place] [address] Michael Smith MD [address] [place] [address] Social History Tobacco Use Types Packs/Day Years Used Date Smoking Tobacco: Never Assessed Comments Unknown Sex and Gender Information Value Date Recorded Sex Assigned at Not on file Legal Sex Female 4:52 AM LABORER SALVAGE Gender Identity Not on file Sexual Orientation Not on file documented as of this encounter Plan of Treatment Not on file documented as of this encounter Visit Diagnoses Not on filedocumented in this encounter Additional Health Concerns Infection Onset Date Last Indicated Resolved Time R/O COVID-19 05/17/2020 05/20/2020 05/20/2020 3:21 PM LABORER SALVAGE documented as of this encounter Care Teams Commercial Loan Collection Officer Relationship Specialty Start Date End Date Michael Smith MD [address] [place] [address] PCP - General 04/28/01 10/23/20 documented as of this encounter
--- OUTSIDE RECORDS SUMMARY | 2025-02-22 11:15 | XMS_ITS | Encounter Summary ---
Author Organization [employer] Address [address] [place] [address] Care Team Providers Care Wireless Architect Name Role Phone Michael Smith MD Primary Care Provider [phone] Encounter Details Date Type Department Care Team (Latest Contact Info) Description 09/17/2003 Outpatient Historical [facility] Michael Smith MD [address] [place] [address] OTHER OVARIAN FAILURE (Primary Dx) Social History Tobacco Use Types Packs/Day Years Used Date Smoking Tobacco: Never Assessed Comments Unknown Sex and Gender Information Value Date Recorded Sex Assigned at Not on file Legal Sex Female 4:52 AM CELL LINER Gender Identity Not on file Sexual Orientation Not on file documented as of this encounter Plan of Treatment Not on file documented as of this encounter Visit Diagnoses Diagnosis Other ovarian failure(256.39)- Primary Other ovarian failure documented in this encounter Additional Health Concerns Infection Onset Date Last Indicated Resolved Time R/O COVID-19 05/17/2020 05/20/2020 05/20/2020 3:21 PM CELL LINER documented as of this encounter Care Teams Wireless Architect Relationship Specialty Start Date End Date Michael Smith MD [address] [place] [address] PCP - General 04/28/01 10/23/20 documented as of this encounter
--- OUTSIDE RECORDS SUMMARY | 2025-02-22 11:15 | XMS_ITS | Encounter Summary ---
Author Organization [employer] Address [address] [place] [address] Care Team Providers Care Pizza Driver Name Role Phone Michael Smith MD Primary Care Provider [phone] Encounter Details Date Type Department Care Team (Late st Contact Info) Description 11/17/2004 Outpatient Historical [facility] Support Serv. (Adt Cardiology-SJ) [address] [place] [address] Jerman Burrell MD [address] [facility] [address] [place], [place] [id number] Social History Tobacco Use Types Packs/Day Years Used Date Smoking Tobacco: Never Assessed Comments Unknown Sex and Gender Information Value Date Recorded Sex Assigned at Not on file Legal Sex Female 4:52 AM STATEMENT SERVICES REPRESENTATIVE Gender Identity Not on file Sexual Orientation Not on file documented as of this encounter Plan of Treatment Not on file documented as of this encounter Visit Diagnoses Not on filedocumented in this encounter Additional Health Concerns Infection Onset Date Last Indicated Resolved Time R/O COVID-19 05/17/2020 05/20/2020 05/20/2020 3:21 PM STATEMENT SERVICES REPRESENTATIVE documented as of this encounter Care Teams Pizza Driver Relationship Specialty Start Date End Date Michael Smith MD [address] [facility] [address] [place] [address] PCP - General 04/28/01 10/23/20 documented as of this encounter
--- OUTSIDE RECORDS SUMMARY | 2025-02-22 11:15 | XMS_ITS | Encounter Summary ---
Author Organization [facility] Address [address] [place] [address] Care Team Providers Care Stove Mounter Name Role Phone Mcihael Smith MD Primary Care Provider [phone] Encounter Details Date Type Department Care Team (Late st Contact Info) Description 10/22/2003 Outpatient Historical [facility] Internal Medicine [address] [place] [address] Michael Smith MD [address] [place] [address] Social History Tobacco Use Types Packs/Day Years Used Date Smoking Tobacco: Never Assessed Comments Unknown Sex and Gender Information Value Date Recorded Sex Assigned at Not on file Legal Sex Female 4:52 AM SENIOR PRINCIPAL Gender Identity Not on file Sexual Orientation Not on file documented as of this encounter Plan of Treatment Not on file documented as of this encounter Visit Diagnoses Not on filedocumented in this encounter Additional Health Concerns Infection Onset Date Last Indicated Resolved Time R/O COVID-19 05/17/2020 05/20/2020 05/20/2020 3:21 PM SENIOR PRINCIPAL documented as of this encounter Care Teams Stove Mounter Relationship Specialty Start Date End Date Michael Smith MD [address] [place] [address] PCP - General 04/28/01 10/23/20 documented as of this encounter
--- OUTSIDE RECORDS SUMMARY | 2025-02-22 11:15 | XMS_ITS | Encounter Summary ---
Author Organization [facility] Address [address] [facility] Attn: Epic Prelude ADT [place] [address] Care Team Providers Care Rubber Boots And Shoes Repairer Name Role Phone Michael Smith MD Primary Care Provider Encounter Details Date Type Department Care Team (Late st Contact Info) Description 11/12/1992 Outpatient Historical Michael Smith MD [address] [place] [address] Social History Tobacco Use Types Packs/Day Years Used Date Smoking Tobacco: Never Assessed Comments Unknown Sex and Gender Information Value Date Recorded Sex Assigned at Not on file Legal Sex Female 4:52 AM VACUUM METALIZING SUPERVISOR Gender Identity Not on file Sexual Orientation Not on file documented as of this encounter Plan of Treatment Not on file documented as of this encounter Visit Diagnoses Not on filedocumented in this encounter Additional Health Concerns Infection Onset Date Last Indicated Resolved Time R/O COVID-19 05/17/2020 05/20/2020 05/20/2020 3:21 PM VACUUM METALIZING SUPERVISOR documented as of this encounter Care Teams Rubber Boots And Shoes Repairer Relationship Specialty Start Date End Date Michael Smith MD [address] [place] [address] PCP - General 04/28/01 10/23/20 documented as of this encounter
--- OUTSIDE RECORDS SUMMARY | 2025-02-22 11:15 | XMS_ITS | Encounter Summary ---
Author Organization [facility] Address [address] [facility] Attn: Epic Prelude ADT [place] [address] Care Team Providers Care Production Bow Maker Name Role Phone Michael Smith MD Primary Care Provider Encounter Details Date Type Department Care Team (Late st Contact Info) Description 08/07/1992 Outpatient Historical Michael Smith MD [address] [place] [address] Social History Tobacco Use Types Packs/Day Years Used Date Smoking Tobacco: Never Assessed Comments Unknown Sex and Gender Information Value Date Recorded Sex Assigned at Not on file Legal Sex Female 4:52 AM PUG MILL OPERATOR HELPER Gender Identity Not on file Sexual Orientation Not on file documented as of this encounter Plan of Treatment Not on file documented as of this encounter Visit Diagnoses Not on filedocumented in this encounter Additional Health Concerns Infection Onset Date Last Indicated Resolved Time R/O COVID-19 05/17/2020 05/20/2020 05/20/2020 3:21 PM PUG MILL OPERATOR HELPER documented as of this encounter Care Teams Production Bow Maker Relationship Specialty Start Date End Date Michael Smith MD [address] [place] [address] PCP - General 04/28/01 10/23/20 documented as of this encounter
--- OUTSIDE RECORDS SUMMARY | 2025-02-22 11:15 | XMS_ITS | Encounter Summary ---
Author Organization [facility] Address [address] [place] [address] Care Team Providers Care Jumpbasting Armhole Baster Name Role Phone Perry Smith MD Primary Care Provider [phone] Encounter Details Date Type Department Care Team (Latest Contact Info) Description 07/16/2008 Outpatient Historical HIS IMG[facility]LAB [facility] Carie Vásquez MD [address] [facility] [address] [place] [address] Other Specified Menopausal and Postmenopausal Disorder Social History Tobacco Use Types Packs/Day Years Used Date Smoking Tobacco: Never Comments No Sex and Gender Information Value Date Recorded Sex Assigned at Not on file Legal Sex Female 4:52 AM OPERATOR AUTOMATED PROCESS Gender Identity Not on file Sexual Orientation [...] PM CDT Narrative 07/16/2008 4:46 PM CDT [facility] [address] [place], [place] [address] Admit Date: 07/16/2008 MENDEZJOHNATHAN BECKERBOSSMAN [place] Sex: F Admit Prov: CARIE VÁSQUEZ Date: 1950 Primary Care Prov: PERRY SMITH CMRN: [id number] Room: [facility] SSN: [id number] [place] [address] IMAGING SERVICES Ordering Prov: N/A Accession Number: [id number] Interpretation BONE MINERAL DENSITY (DEXA) HISTORY: 58 year old female with postmenopausal symptoms needing evaluation for osteoporosis. PROCEDURE: Using a [employer] dual energy x-ray absorptiometry system, the patient's [...] 16:44 Procedure Note Paty Dill - 07/16/2008 [facility] [address] [place], [place] [address] Admit Date: 07/16/2008 ARABELLA MENDEZ Sex: F Admit Prov: SUELLEN CARIE Bates Date: 1950 Primary Care Prov: PERRY SMITH CMRN: [id number] Room: [facility] SSN: [id number] IMAGING SERVICES Ordering Prov: N/A Interpretation BONE MINERAL DENSITY (DEXA) HISTORY: 58 year old female with postmenopausal symptoms needing evaluationfor osteoporosis. PROCEDURE: Using a [employer] dual energy x-ray absorptiometry system, the patient's [...] Time R/O COVID-19 05/17/2020 05/20/202005/2005/20/2020 3:21 PM OPERATOR AUTOMATED PROCESS documented as of this encounter Care Teams Jumpbasting Armhole Baster Relationship Specialty Start Date End Date Perry Smith MD [address] [facility] [address] [place] [address] PCP - General 04/28/01 10/23/20 documented as of this encounter
--- OUTSIDE RECORDS SUMMARY | 2025-02-22 11:15 | XMS_ITS | Encounter Summary ---
Author Organization [employer] [facility] Address [address] [place] [address] Care Team Providers Care Oriental Rug Repairer Name Role Phone Michael Smith MD Primary Care Provider [phone] Encounter Details Date Type Department Care Team (Latest Contact Info) Description 03/17/2004 Outpatient Historical [facility] Michael Smith MD [address] [place] [address] ABN INVOLUN MOVEMENT NEC (Primary Dx) Social History Tobacco Use Types Packs/Day Years Used Date Smoking Tobacco: Never Assessed Comments Unknown Sex and Gender Information Value Date Recorded Sex Assigned at Not on file Legal Sex Female 4:52 AM CRYSTALLIZER OPERATOR Gender Identity Not on file Sexual Orientation Not on file documented as of this encounter Plan of Treatment Not on file documented as of this encounter Visit Diagnoses Diagnosis Abnormal involuntary movements(781.0)- Primary Abnormal involuntary movements documented in this encounter Additional Health Concerns Infection Onset Date Last Indicated Resolved Time R/O COVID-19 05/17/2020 05/20/2020 05/20/2020 3:21 PM CRYSTALLIZER OPERATOR documented as of this encounter Care Teams Oriental Rug Repairer Relationship Specialty Start Date End Date Michael Smith MD [address] [place] [address] PCP - General 04/28/01 10/23/20 documented as of this encounter
--- OUTSIDE RECORDS SUMMARY | 2025-02-22 11:16 | XMS_ITS | Encounter Summary ---
Author Organization [facility] Address [address] [place] [address] Care Team Providers Care Admissions Assistant Name Role Phone Michael Smith MD Primary Care Provider [phone] Encounter Details Date Type Department Care Team (Late st Contact Info) Description 12/03/2005 Outpatient Historical [facility] Internal Medicine [address] [place] [address] Michael Smith MD [address] [facility] [address] [place] [address] Social History Tobacco Use Types Packs/Day Years Used Date Smoking Tobacco: Never Assessed Comments Unknown Sex and Gender Information Value Date Recorded Sex Assigned at Not on file Legal Sex Female 4:52 AM LOSS PREVENTION RESEARCH ENGINEER Gender Identity Not on file Sexual [...] R/O COVID-19 05/17/2020 05/20/2020 05/20/2020 3:21 PM LOSS PREVENTION RESEARCH ENGINEER documented as of this encounter Care Teams Admissions Assistant Relationship Specialty Start Date End Date Michael Smith MD [address] [facility] [address] [place] [address] PCP - General 04/28/01 10/23/20 documented as of this encounter
--- OUTSIDE RECORDS SUMMARY | 2025-02-22 11:16 | XMS_ITS | Encounter Summary ---
Author Organization [facility] Address [address] [place] [address] Care Team Providers Care Custodial Supervisor Name Role Phone Michael Smith MD Primary Care Provider [phone] Encounter Details Date Type Department Care Team (Late st Contact Info) Description 11/13/2005 [facility] [address] [place] [address] Michael Smith MD [address] [place] [address] Social History Tobacco Use Types Packs/Day Years Used Date Smoking Tobacco: Never Assessed Comments Unknown Sex and Gender Information Value Date Recorded Sex Assigned at Not on file Legal Sex Female 4:52 AM EDGE BEADER Gender Identity Not on file Sexual Orientation Not on file documented as of this encounter Plan of Treatment Not on file documented as of this encounter Visit Diagnoses Not on filedocumented in this encounter Additional Health Concerns Infection Onset Date Last Indicated Resolved Time R/O COVID-19 05/17/2020 05/20/2020 05/20/2020 3:21 PM EDGE BEADER documented as of this encounter Care Teams Custodial Supervisor Relationship Specialty Start Date End Date Michael Smith MD [address] [place] [address] PCP - General 04/28/01 10/23/20 documented as of this encounter
--- OUTSIDE RECORDS SUMMARY | 2025-02-22 11:16 | XMS_ITS | Encounter Summary ---
Author Organization [employer] [facility] Address [address] [place] [address] Care Team Providers Care Quality Control Lab Tech Name Role Phone Michael Smith MD Primary Care Provider [phone] Encounter Details Date Type Department Care Team (Latest Contact Info) Description 09/29/2005 Outpatient Historical HIS IM[facility] Jonel Vásquez MD [address] [facility] [address] [place] [address] Other Screening Mammogram (Primary Dx) Social History Tobacco Use Types Packs/Day Years Used Date Smoking Tobacco: Never Assessed Comments Unknown Sex and Gender Information Value Date Recorded Sex Assigned at Not on file Legal Sex Female 4:52 AM SPORTS BOOK BOARD ATTENDANT Gender Identity Not on file Sexual Orientation Not on file documented as of this encounter Plan of Treatment Not on file documented as of this encounter Visit Diagnoses Diagnosis Other screening mammogram- Primary documented in this encounter Additional Health Concerns Infection Onset Date Last Indicated Resolved Time R/O COVID-19 05/17/2020 05/20/2020 05/20/2020 3:21 PM SPORTS BOOK BOARD ATTENDANT documented as of this encounter Care Teams Quality Control Lab Tech Relationship Specialty Start Date End Date Michael Smith MD [address] [facility] [address] [place] [address] PCP - General 04/28/01 10/23/20 documented as of this encounter
[2025-02-22 20:45] LABS: Hemoglobin A1C 5.9 % (<5.7)
== END 2025-02-22 09:56 | disposition home or self-care (01) ==
LOC: ANHLAB 09:57
PROVIDERS: PCP Internal Medicine; Visit Provider Internal Medicine
DX: R07.9 Chest pain, unspecified (principal); R10.9 Unspecified abdominal pain; N39.0 Urinary tract infection, site not specified; E11.9 Type 2 diabetes mellitus without complications; E78.2 Mixed hyperlipidemia; I10 Essential (primary) hypertension
CPT/HCPCS: 36415; 71046; 74018; 80053; 80061; 81001; 82043; 83036; 85025

== ENCOUNTER 2025-03-01 06:52 | Outpatient (CLI) | payer MEDICARE, SELFPAY ==
--- OUTSIDE RECORDS SUMMARY | 2025-03-01 06:56 | XMS_ITS | Encounter Summary ---
Author Organization [facility] Address [address] [place] [address] Care Team Providers Care Review Appraiser Name Role Phone Michael Smith MD Primary Care Provider [phone] Encounter Details Date Type Department Care Team (Late st Contact Info) Description 08/18/2007 Outpatient Historical [facility] Internal Medicine [address] [place] [address] Michael Smith MD [address] [place] [address] Social History Tobacco Use Types Packs/Day Years Used Date Smoking Tobacco: Never Assessed Comments Unknown Sex and Gender Information Value Date Recorded Sex Assigned at Not on file Legal Sex Female 4:52 AM ASSOCIATE PROFESSOR OF ENGINEERING Gender Identity Not on file Sexual Orientation Not on file documented as of this encounter Plan of Treatment Not on file documented as of this encounter Visit Diagnoses Not on filedocumented in this encounter Additional Health Concerns Infection Onset Date Last Indicated Resolved Time R/O COVID-19 05/17/2020 05/20/2020 05/20/2020 3:21 PM ASSOCIATE PROFESSOR OF ENGINEERING documented as of this encounter Care Teams Review Appraiser Relationship Specialty Start Date End Date Michael Smith MD [address] [place] [address] PCP - General 04/28/01 10/23/20 documented as of this encounter
--- OUTSIDE RECORDS SUMMARY | 2025-03-01 06:56 | XMS_ITS | Encounter Summary ---
Author Organization [facility] Address [address] [place] [address] Care Team Providers Care Splitter Head Name Role Phone Michael Smith MD Primary Care Provider Reason for Visit * Reason Comments Medication Refill Encounter Details Date Type Department Care Team (Late st Contact Info) Description 04/26/2018 Refill [facility] Primary Care - [place] [address] [facility] [address] [place] [address] Michael Smith MD [address] [facility] [address] [place] [address] Social History Tobacco Use Types Packs/Day Years Used Date Smoking Tobacco: Never Smokeless Tobacco: Never Alcohol Use Standard Drinks/Week Comments No 0 (1 standard drink = 0.6 oz pur e alcohol) Comments No Sex and Gender Information Value Date Recorded Sex Assigned at Not on file Legal Sex Female 4:52 AM WHOLESALE AND RETAIL MERCHANT Gender Identity Not on file Sexual Orientation Not on file Occupation Industry Job Start Date Job End Date Not on file Not on file Not on file Not on file documented as of this encounter Miscellaneous Notes * Telephone Encounter - Ayse Ward - 04/26/2018 1:50 PM CST Last ov- 06/28/2017 Last refill- 04/13/2017 ESALE AND RETAIL MERCHANT documented in this encounter Plan of Treatment Not on file documented as of this encounter Visit Diagnoses Not on filedocumented in this encounter Additional Health Concerns Infection Onset Date Last Indicated Resolved Time R/O COVID-19 05/17/2020 05/20/2020 05/20/2020 3:21 PM WHOLESALE AND RETAIL MERCHANT documented as of this encounter Care Teams Splitter Head Relationship Specialty Start Date End Date Michael Smith MD [address] [facility] [address] [place] [phone] PCP - General 04/28/01 10/23/20 documented as of this encounter
--- OUTSIDE RECORDS SUMMARY | 2025-03-01 06:56 | XMS_ITS | Patient Health Record ---
Author Organization [employer] Address [address] [facility] [address] [place] [address] Care Team Providers Care Street Light Cleaner Name Role Phone Michael Smith MD Primary Care Provider Unavaila ble Reason For Referral No Information Plan Of Treatment No Information Insurance Providers Payer Name Payer Address Payer Phone Subscriber Number Group Number Insured Name Patient Relationship to Insured Coverage Start Date Coverage End Date Medicare E2 [address] [address] [place] [address] [id number] Arabella Hankins Self - patient is the insured [employer] Supp[employer] Plan [address] [address] [place] [address] [id number] Arabella Hankins Self - patient is the insured
--- OUTSIDE RECORDS SUMMARY | 2025-03-01 06:56 | XMS_ITS | Encounter Summary ---
Author Organization [employer] Address [address] [place] [address] Care Team Providers Care Pediatric Cardiologist Name Role Phone Michael Smith MD Primary Care Provider [phone] Encounter Details Date Type Department Care Team (Late st Contact Info) Description 08/18/2007 Outpatient Historical [facility] Michael Smith MD [address] [place] [phone] Edema Social History Tobacco Use Types Packs/Day Years Used Date Smoking Tobacco: Never Assessed Comments Unknown Sex and Gender Information Value Date Recorded Sex Assigned at Not on file Legal Sex Female 4:52 AM CAMPAIGN MANAGEMENT SPECIALIST Gender Identity Not on file Sexual Orientation Not on file documented as of this encounter Plan of Treatment Not on file documented as of this encounter Visit Diagnoses Diagnosis Edema documented in this encounter Additional Health Concerns Infection Onset Date Last Indicated Resolved Time R/O COVID-19 05/17/2020 05/20/2020 05/20/2020 3:21 PM CAMPAIGN MANAGEMENT SPECIALIST documented as of this encounter Care Teams Pediatric Cardiologist Relationship Specialty Start Date End Date Michael Smith MD [address] [place] [address] PCP - General 04/28/01 10/23/20 documented as of this encounter
--- OUTSIDE RECORDS SUMMARY | 2025-03-01 06:56 | XMS_ITS | Encounter Summary ---
Author Organization [facility] Address [address] [place] [address] Care Team Providers Care Core Mounter Name Role Phone Michael Smith MD Primary Care Provider [phone] Encounter Details Date Type Department Care Team (Late st Contact Info) Description 06/06/2007 Orders Only [facility] Internal Medicine [address] [place] [address] Michael Smith MD [address] [facility] [address] [place] [address] Social History Tobacco Use Types Packs/Day Years Used Date Smoking Tobacco: Never Assessed Comments Unknown Sex and Gender Information Value Date Recorded Sex Assigned at Not on file Legal Sex Female 4:52 AM SENIOR OPERATIONS ANALYST Gender Identity Not on file Sexual Orientation Not on file documented as of this encounter Progress Notes * Michael Smith MD - 09/21/2007 9:17 PM CDT TIME:09:59 am PATIENT`S HOME PHONE: PATIENT`S WORK PHONE: PATIENT`S INSURANCE: [employer] PPO WHO TOOK THE CALL: Sugey Ortega SECTION 1: REQUESTED ACTION va 06/06/07 at 09:59 am: MEDICATION REQUEST: * Michael Smith MD - 09/21/2007 9:17 PM CDT TIME:10:00 am PATIENT`S HOME PHONE: PATIENT`S WORK PHONE: PATIENT`S INSURANCE: [employer] PPO WHO TOOK THE CALL: Sugey Ortega [...] HOME PHONE: PATIENT`S WORK PHONE: PATIENT`S INSURANCE: [facility] PPO WHO TOOK THE CALL: Sugey Ortega [...] COVID-19 05/17/2020 05/20/2020 05/20/2020 3:21 PM SENIOR OPERATIONS ANALYST documented as of this encounter Care Teams Core Mounter Relationship Specialty Start Date End Date Michael Smith MD [address] [facility] [address] [place] [address] PCP - General 04/28/01 10/23/20 documented as of this encounter
--- OUTSIDE RECORDS SUMMARY | 2025-03-01 06:56 | XMS_ITS | Encounter Summary ---
Author Organization [facility] Address [address] [place] [address] Care Team Providers Care Manufacturer Representative Name Role Phone Michael Smith MD Primary Care Provider [phone] Encounter Details Date Type Department Care Team (Late st Contact Info) Description 08/18/2007 Outpatient Historical [facility] Internal Medicine [address] [place] [phone] Michael Smith MD [address] [place] [address] Social History Tobacco Use Types Packs/Day Years Used Date Smoking Tobacco: Never Assessed Comments Unknown Sex and Gender Information Value Date Recorded Sex Assigned at Not on file Legal Sex Female 4:52 AM STRINGER UP SOLDERING MACHINE Gender Identity Not on file Sexual Orientation Not on file documented as of this encounter Plan of Treatment Not on file documented as of this encounter Visit Diagnoses Not on filedocumented in this encounter Additional Health Concerns Infection Onset Date Last Indicated Resolved Time R/O COVID-19 05/17/2020 05/20/2020 05/20/2020 3:21 PM STRINGER UP SOLDERING MACHINE documented as of this encounter Care Teams Manufacturer Representative Relationship Specialty Start Date End Date Michael Smith MD [address] [place] [address] PCP - General 04/28/01 10/23/20 documented as of this encounter
--- OUTSIDE RECORDS SUMMARY | 2025-03-01 06:56 | XMS_ITS | Encounter Summary ---
Author Organization [facility] Address [address] [place] [address] Care Team Providers Care Director Pharmacology Name Role Phone Michael Smith MD Primary Care Provider [phone] Encounter Details Date Type Department Care Team (Late st Contact Info) Description 06/13/2007 Orders Only [facility] Internal Medicine [address] [place] [address] [place] [address] Michael Smith MD [address] [facility] [address] [place] [address] Social History Tobacco Use Types Packs/Day Years Used Date Smoking Tobacco: Never Assessed Comments Unknown Sex and Gender Information Value Date Recorded Sex Assigned at Not on file Legal Sex Female 4:52 AM ENDOSCOPY RN Gender Identity Not on file Sexual Orientation Not on file documented as of this encounter Progress Notes * Michael Smith MD - 09/21/2007 10:50 AM CDT TIME:11:49 am PATIENT`S HOME PHONE: PATIENT`S WORK PHONE: PATIENT`S INSURANCE: [employer] PPO WHO TOOK THE CALL: Giselle Gamino L GENERAL INFORMATION PATIENT STATUS: Established Patient. WHO CALLED: Pharmacy called. PHARMACY NUMBER: [phone] SECTION 1: REQUESTED ACTION nabila 06/13/07 at [...] R/O COVID-19 05/17/2020 05/20/2020 05/20/2020 3:21 PM ENDOSCOPY RN documented as of this encounter Care Teams Director Pharmacology Relationship Specialty Start Date End Date Michael Smith MD [address] [facility] [address] [address] PCP - General 04/28/01 10/23/20 documented as of this encounter
--- OUTSIDE RECORDS SUMMARY | 2025-03-01 06:56 | XMS_ITS | Encounter Summary ---
Author Organization [facility] Address [address] [place] [address] Care Team Providers Care Practice Representative Name Role Phone Michael Smith MD Primary Care Provider [phone] Encounter Details Date Type Department Care Team (Late st Contact Info) Description 05/31/2007 Outpatient Historical [facility] Internal Medicine [address] [place] [address] Michael Smith MD [address] [place] [address] Social History Tobacco Use Types Packs/Day Years Used Date Smoking Tobacco: Never Assessed Comments Unknown Sex and Gender Information Value Date Recorded Sex Assigned at Not on file Legal Sex Female 4:52 AM IN CLASSROOM TUTOR Gender Identity Not on file Sexual Orientation Not on file documented as of this encounter Plan of Treatment Not on file documented as of this encounter Visit Diagnoses Not on filedocumented in this encounter Additional Health Concerns Infection Onset Date Last Indicated Resolved Time R/O COVID-19 05/17/2020 05/20/2020 05/20/2020 3:21 PM IN CLASSROOM TUTOR documented as of this encounter Care Teams Practice Representative Relationship Specialty Start Date End Date Michael Smith MD [address] [place] [address] PCP - General 04/28/01 10/23/20 documented as of this encounter
--- OUTSIDE RECORDS SUMMARY | 2025-03-01 06:56 | XMS_ITS | Clinical Summary ---
Author Organization [facility] [employer] Address [address] [facility] [place] [address] Care Team Providers Care Account Installation Specialist Name Role Phone Michael Smith MD Primary Care Provider [phone] Source Comments [facility] [employer],non-owned Affiliates and Associated Physician Practices is amultiple site organization consisting of ambulatory clinics and hospital sitesin [place], [place], [place] and [place]. This disclosure is being madepursuant to the Care Everywhere program and may not contain all information available regarding this patient. Last updated 18.[employer] Allergies Active Allergy Reactions Criticality Noted Date [...] Comments Blood Pressure 124/60 06/07/2018 7:59 AM COW TENDER Pulse 59 06/07/2018 7:59 AM COW TENDER Temperature 36.9 C (98.5 F) 06/07/2018 7:59 AM COW TENDER Respiratory Rate 16 06/07/2018 7:59 AM COW TENDER Oxygen Saturation 92% 06/07/2018 7:59 AM COW TENDER Inhaled Oxygen Concentration - - Weight 87.1 kg (192 lb) 06/14/2018 8:56 AM COW TENDER Height 172.7 cm (5' 8) 06/14/2018 8:56 AM COW TENDER Body Mass Index 29.19 06/14/2018 8:56 AM COW TENDER Plan of Treatment Health Maintenance Due Date [...] (CALCIUM TOTAL) AM Draw 06/07/2018 1:19 AM COW TENDER from Last 3 Months or Most Recently Relevant to Health Maintenance Results * (ABNORMAL) BASIC METABOLIC PANEL (CALCIUM TOTAL) (06/07/2018 1:19 AM COW TENDER) Glucose 137(H) 74 - 106 mg/dL 06/07/2018 1:44 AM [facility] Sodium 139 136 - 145 mmol/L 06/07/2018 1:44 AM [facility] Potassium 3.0(L) 3.5 - 5.1 mmol/L 06/07/2018 1:44 AM [facility] Chloride 108(H) 98 - 107 mmol/L 06/07/2018 1:44 AM [facility] CO2 25 22 - 31 mmol/L 06/07/2018 1:44 AM [facility] Calcium 8.5 8.5 - 10.1 mg/dL 06/07/2018 1:44 AM [facility] Anion Gap 6(L) 8 - 16 mmol/L 06/07/2018 1:44 AM [facility] BUN 9 7 - 21 mg/dL 06/07/2018 1:44 AM [facility] Creatinine 0.85 0.50 - 1.30 mg/dL 06/07/2018 1:44 AM [facility] eGFR by MDRD >60 mL/min/1.7 3m2 06/07/2018 1:44 AM [facility] eGFR by MDRD >60 mL/min/1.7 3m2 06/07/2018 1:44 AM [facility] Blood BLOOD SPECIMEN / Unknown Venipuncture / Unknown 06/07/2018 1:19 AM COW TENDER 06/07/2018 1:26 AM COW TENDER Fredi Hudson MD LAB - CHEMISTRY ORDERAB LES Final Result [facility] [address] [place] [address] from Last 3 Months or Most Recently Relevant to Health Maintenance Insurance MEDICARE [employer] Advance Directives Documents on File Type Date Recorded 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
--- OUTSIDE RECORDS SUMMARY | 2025-03-01 06:56 | XMS_ITS | Clinical Summary ---
Author Organization [facility] Address [address] [place] [address] Care Team Providers Care Production Drilling Machine Operator Name Role Phone Roxanne Werner MD Unavailable Ata Bronson DPM Unavailable [phone] Meir Ibrahim MD Primary Care Provider [phone] Allergies Active Allergy Reactions Criticality Noted Date [...] 08/02/19 24 Active furosemide (LASIX) 20 mg tabletIndications :Diastolic dysfunction TAKE 1 TABLET BY MOUTH EVERY DAY 90 tablet 3 11/05/19 24 Active NIFEdipine XL 60 mg 24 hr tablet TAKE 1 TABLET BY MOUTH DAILY 90 tablet 3 02/07/20 24 Active metFORMIN (GLUCOPHAGE) 500 mg tablet Take 1 tablet (500 mg total) by mouth 2 (two) times a day 04/03/20 Active dapagliflozin propanediol (FARXIGA) 5 mg tablet Take 1 tablet (5 mg total) by mouth daily Active levothyroxine (SYNTHROID) 112 mcg tabletIndications :Postoperative hypothyroidism TAKE 1 TABLET BY MOUTH EARLY IN THE MORNING BEFORE BREAKFAST 90 tablet 08/12/19 Active metoprolol tartrate (LOPRESSOR) 50 mg immediate release tabletIndications :Essential hypertension, benign Take 1 tablet (50 mg total) by mouth 2 (two) times a day 180 tablet 3 10/19/19 25 2025 Active losartan (COZAAR) 25 mg tablet Take 1 tablet (25 mg total) by mouth daily 90 tablet 3 01/18/20 25 2025 Active rivaroxaban (XARELTO) 20 mg tablet Take 1 tablet (20 mg total) by mouth daily with breakfast 90 tablet 3 01/18/20 25 2025 Active oxyBUTYnin (DITROPAN) 5 mg tablet TAKE 1 TABLET BY MOUTH TWICE DAILY 200 tablet 2 02/29/20 25 Active rosuvastatin (CRESTOR) 5 mg tablet TAKE 1 TABLET BY MOUTH DAILY AT NIGHT 100 tablet 2 02/29/20 25 Active oxyBUTYnin (DITROPAN) 5 mg tablet TAKE 1 TABLET BY MOUTH TWICE DAILY 200 tablet 3 03/06/20 24 2024 Discontinued rosuvastatin (CRESTOR) 5 mg tablet TAKE 1 TABLET BY MOUTH DAILY AT NIGHT 100 tablet 3 03/06/20 24 2024 Discontinued warfarin (COUMADIN) 1 mg tabletIndications :PAF (paroxysmal atrial fibrillation) Take 1 tablet (1 mg total) by mouth daily 30 tablet 11 11/03/19 25 2024 Discontinued(A lternate therapy) warfarin (COUMADIN) 4 mg tabletIndications :PAF (paroxysmal atrial fibrillation) Take 1 tablet (4 mg total) by mouth daily 30 tablet 11 11/03/192024 Discontinued(A lternate therapy) warfarin (COUMADIN) 3 mg tablet Take 1 tablet (3 mg total) by mouth daily 90 tablet 12/09/192024 Discontinued(A lternate therapy) Active Problems Problem Noted Date Diagnosed [...] 07/12/2023 Assessment & Plan (07/14/2023 2:07 PM ELECTRIC SHIPYARD OPERATOR): -chronic, stable -Discussed/ordered labs -continue on Compazine 10 mg every 6 hours as needed Vitamin B12 deficiency 07/12/2023 Assessment & Plan (01/17/2024 8:01 AM CDT): -chronic, stable -Discussed/ordered labs -continue on OTC vitamin B12 supplement daily Assessment & Plan (07/14/2023 2:08 PM ELECTRIC SHIPYARD OPERATOR): -chronic, unknown, no data to review at this time to make an evaluation -Discussed/ordered labs -continue on OTC vitamin B12 supplement daily Vitamin D deficiency 07/12/2023 Assessment & Plan (01/17/2024 8:00 AM CDT): -chronic, stable -Discussed/ordered labs -continue on vitamin D3 supplement 5000 units daily Assessment & Plan (07/14/2023 2:08 PM ELECTRIC SHIPYARD OPERATOR): -chronic, unknown, no data to review at this time to make an evaluation -Discussed/ordered labs -continue on vitamin D3 supplement 5000 units daily Chronic cough 01/27/2023 Assessment & Plan (01/19/2024 12:53 PM CDT): -chronic, stable -Discussed/ordered labs -patient reports she stopped taking Flonase -continue follow up with the ENT as needed Assessment & Plan (07/14/2023 2:04 PM ELECTRIC SHIPYARD OPERATOR): -chronic, stable -Discussed/ordered labs -continue on Flonase [...] 01/27/2023 Assessment & Plan (07/14/2023 2:05 PM ELECTRIC SHIPYARD OPERATOR): -chronic, stable -Discussed/ordered labs -continue on Flonase 2 sprays per nostril daily and meclizine 12.5 mg 3 times daily as needed -continue seeing ENT Assessment & Plan (03/19/2023 9:11 AM ELECTRIC SHIPYARD OPERATOR): Continue the Nasal saline and Flonase Call [...] daily Assessment & Plan (07/14/2023 2:03 PM ELECTRIC SHIPYARD OPERATOR): -chronic, stable -Discussed/ordered labs -continue seeing Cardiology -continue seeing Nephrology -continue on Eliquis 5 mg every 12 hours, furosemide 20 mg daily, metoprolol 50 mg twice daily, nifedipine XL 60 mg daily, potassium ER 20 mEq twice daily, Rosuvastatin 5 mg daily Assessment & Plan (05/04/2023 3:52 PM ELECTRIC SHIPYARD OPERATOR): Stable. Blood pressure is well controlled today. Last GFR was 44. Recheck BMP today. Will refer back to Nephrology Assessment & Plan (10/21/2022 8:56 AM CDT): Blood pressure well controlled. gfr 40. Will continue to monitor. Recheck bmp in 3 months. Diastolic dysfunction 10/21/2022 Overview (10/21/2022): Monitor for SOB, fatigue, weight gain, etc. Assessment & Plan (07/14/2023 2:02 PM ELECTRIC SHIPYARD OPERATOR): -chronic, stable -Discussed/ordered labs -continue seeing Cardiology -continue on Eliquis 5 mg every 12 hours, furosemide 20 mg daily, metoprolol 50 mg twice daily, nifedipine XL 60 mg daily, potassium ER 20 mEq twice daily, Rosuvastatin 5 mg daily Assessment & Plan (05/04/2023 3:53 PM ELECTRIC SHIPYARD OPERATOR): History of diastolic dysfunction. Patient follows with [...] daily Assessment & Plan (07/14/2023 2:03 PM ELECTRIC SHIPYARD OPERATOR): -chronic, stable -Discussed/ordered labs -continue seeing Cardiology [...] 06/18/2022 Assessment & Plan (07/14/2023 2:06 PM ELECTRIC SHIPYARD OPERATOR): -chronic, stable -Discussed/ordered labs -continue seeing Cardiology -continue on Eliquis 5 mg every 12 hours, furosemide 20 mg daily, metoprolol 50 mg twice daily, nifedipine XL 60 mg daily, potassium ER 20 mEq twice daily, Rosuvastatin 5 mg daily Assessment & Plan (06/18/2022 11:11 AM ELECTRIC SHIPYARD OPERATOR): HPI: Condition is not at/near goal swelling [...] 06/18/2022 Assessment & Plan (06/18/2022 11:14 AM ELECTRIC SHIPYARD OPERATOR): HPI: Condition is not at/near goal A&P: [...] 04/22/2022 Assessment & Plan (07/14/2023 2:05 PM ELECTRIC SHIPYARD OPERATOR): -chronic, stable -Discussed/ordered labs -continue on cyclobenzaprine 3 times daily as needed and OTC muscle rub Assessment & Plan (06/18/2022 11:12 AM ELECTRIC SHIPYARD OPERATOR): HPI: Condition is not at/near goal A&P: Discussed/ordered labs, encouraged healthy, low carbohydrate lifestyle and at least 150min/week of exercise. Pt has not been using Voltaren gel. Pt denies stretching or doing other home remedies to help her back We will do xray lumbar spine today Physical therapy Muscle rubs such as biofreeze/icy hot Massage may help Assessment & Plan (04/22/2022 8:21 AM ELECTRIC SHIPYARD OPERATOR): Does not wish to seek further treatment, [...] in your mouth on an boom like [employer] Hand Measurements: A fist or cupped hand [...] in your mouth on an boom like [employer] Hand Measurements: A fist or cupped hand [...] cup. Assessment & Plan (07/14/2023 2:05 PM ELECTRIC SHIPYARD OPERATOR): -chronic, stable goal BMI <30 Healthy, high-protein, lower carbohydrate, lower fat lifestyle and exercise for 150min/week recommended Recommend tracking everything you put in your mouth on an boom like [employer] Hand Measurements: A fist or cupped hand [...] cup. Assessment & Plan (06/18/2022 11:13 AM ELECTRIC SHIPYARD OPERATOR): HPI: Condition is stable goal BMI <30 A&P: Healthy, high-protein, lower carbohydrate, lower fat lifestyle and exercise for 150min/week recommended Recommend tracking everything you put in your mouth on an boom like [employer] Lower carb substitutions: [employer] carries a zero [...] in much longer they will become mushy [place] and/or coconut flour instead of regular flour [...] pork rinds For yogurt, try Two Good tajik yogurt Use [employer] for recipe ideas. Type [...] cup. Assessment & Plan (04/22/2022 8:20 AM ELECTRIC SHIPYARD OPERATOR): BMI Follow-up includes: exercise counseling. Assessment & Plan (10/16/2021 11:09 AM CDT): HPI: Condition is improving, but not at goal goal BMI <30 A&P: Healthy, high-protein, lower carbohydrate, lower fat lifestyle and exercise for 150min/week recommended Recommend tracking everything you put in your mouth on an boom like [employer] Lower carb substitutions: [employer] carries a zero [...] in much longer they will become mushy [place] and/or coconut flour instead of regular flour [...] pork rinds For yogurt, try Two Good tajik yogurt Use [employer]orio for recipe ideas. Type [...] cup. Assessment & Plan (04/08/2021 9:43 AM ELECTRIC SHIPYARD OPERATOR): HPI: Condition is not at/near goal goal BMI <30 A&P: Healthy, high-protein, lower carbohydrate, lower fat lifestyle and exercise for 150min/week recommended Substitutions: Recommend tracking everything you put in your mouth on an boom like [employer] or [employer] carries a zero net carb bread [...] in much longer they will become mushy [place] and/or coconut flour instead of regular flour [...] pork rinds For yogurt, try Two Good tajik yogurt Use Pinterest for recipe ideas. Type [...] daily Assessment & Plan (07/14/2023 2:03 PM ELECTRIC SHIPYARD OPERATOR): -chronic, stable -Discussed/ordered labs -continue seeing Cardiology -continue on Eliquis 5 mg every 12 hours, furosemide 20 mg daily, metoprolol 50 mg twice daily, nifedipine XL 60 mg daily, potassium ER 20 mEq twice daily, Rosuvastatin 5 mg daily Assessment & Plan (08/06/2022 8:58 AM CDT): Stable. Continue eliquis, metoprolol, Assessment & Plan (04/22/2022 8:01 AM ELECTRIC SHIPYARD OPERATOR): Stable. Managed by cardiology. Remains on eliquis [...] Werner Assessment & Plan (04/08/2021 8:57 AM ELECTRIC SHIPYARD OPERATOR): HPI: Condition is stable A&P: Discussed/ordered labs, [...] daily Assessment & Plan (07/14/2023 2:03 PM ELECTRIC SHIPYARD OPERATOR): -chronic, stable -Discussed/ordered labs -continue seeing Cardiology [...] Werner Assessment & Plan (04/08/2021 8:55 AM ELECTRIC SHIPYARD OPERATOR): HPI: Condition is stable A&P: Discussed/ordered labs, [...] addition of loop diuretic. Current use of mcc anticoagulation 021 Assessment & Plan (01/17/2024 8:01 AM CDT): -chronic, stable -Discussed/ordered labs -continue on Eliquis 5 mg every 12 hours -continue seeing Cardiology Assessment & Plan (07/14/2023 2:05 PM ELECTRIC SHIPYARD OPERATOR): -chronic, stable -Discussed/ordered labs -continue on Eliquis 5 mg every 12 hours -continue seeing Cardiology Assessment & Plan (10/16/2021 11:10 AM CDT): HPI: Condition is stable A&P: Discussed/ordered labs, encouraged healthy, low carbohydrate lifestyle and at least 150min/week of exercise, continue on eliquis 5mg every 12 hours Continue f/u with cardiology Dr. Werner every 6 mo Assessment & Plan (04/08/2021 9:24 AM ELECTRIC SHIPYARD OPERATOR): HPI: Condition is stable A&P: Discussed/ordered labs, encouraged healthy, low carbohydrate lifestyle and at least 150min/week of exercise, continue on Eliquis 5 mg twice daily continue follow-up with cardiology-Dr. Elizabeth Assessment & Plan (02/25/2021 11:14 AM CDT): Patient has had no major bleeding events, she will continue with long-term anticoagulation. Hypokalemia 06/06/2020 Assessment & Plan (07/14/2023 2:03 PM ELECTRIC SHIPYARD OPERATOR): -chronic, stable -Discussed/ordered labs -continue seeing Cardiology -continue on Eliquis 5 mg every 12 hours, furosemide 20 mg daily, metoprolol 50 mg twice daily, nifedipine XL 60 mg daily, potassium ER 20 mEq twice daily, Rosuvastatin 5 mg daily Assessment & Plan (05/04/2023 3:54 PM ELECTRIC SHIPYARD OPERATOR): Received critical results after patient left. BMP [...] exercise Assessment & Plan (07/14/2023 2:07 PM ELECTRIC SHIPYARD OPERATOR): -chronic, stable -Discussed/ordered labs -recommend healthy low carb diet and increase exercise Assessment & Plan (05/04/2023 3:52 PM ELECTRIC SHIPYARD OPERATOR): Will recheck hemoglobin A1c today. Recommended healthy diet, incorporating fruits, vegetables and adequate amounts of water along with mild-moderate daily exercise as tolerated; Assessment & Plan (08/06/2022 9:05 AM CDT): Had A1c drawn in June and labs A1c was 6.3%. Recommend low carb diet. Continue her exercise habits. Will continue to monitor Assessment & Plan (04/22/2022 8:01 AM ELECTRIC SHIPYARD OPERATOR): Stable. Recommended healthy diet, incorporating fruits, vegetables and adequate amounts of water along with mild-moderate daily exercise as tolerated; Assessment & Plan (10/16/2021 7:24 AM CDT): HPI: Condition is stable A&P: Discussed/ordered labs, encouraged healthy, low carbohydrate lifestyle and at least 150min/week of exercise Assessment & Plan (04/08/2021 7:19 AM ELECTRIC SHIPYARD OPERATOR): HPI: Condition is stable A&P: Discussed/ordered labs, encouraged healthy, low carbohydrate lifestyle and at least 150min/week of exercise History of adenomatous polyp of colon 04/07/2016 Overview (04/08/2021): Last colonoscopy 07/[address] Noguera (GI) Repeat in 5 yrs. Assessment & Plan (01/17/2024 8:01 AM CDT): Last colonoscopy completed 07/15/2020 Repeat in 5 years Assessment & Plan (07/14/2023 2:06 PM ELECTRIC SHIPYARD OPERATOR): Last colonoscopy completed 07/15/2020 Repeat in 5 years Assessment & Plan (10/16/2021 7:24 AM CDT): Last colonoscopy 07/[address] Noguera (GI), repeat in 5 yrs. Assessment & Plan (04/08/2021 7:20 AM ELECTRIC SHIPYARD OPERATOR): Last colonoscopy 07/[address] Noguera (GI) [...] normal. Assessment & Plan (07/14/2023 2:02 PM ELECTRIC SHIPYARD OPERATOR): -chronic, stable -Discussed/ordered labs -continue seeing Cardiology [...] Werner Assessment & Plan (04/08/2021 7:21 AM ELECTRIC SHIPYARD OPERATOR): HPI: Condition is stable A&P: Discussed/ordered labs, encouraged healthy, low carbohydrate lifestyle and at least 150min/week of exercise, continue on Furosemide 20 mg daily, Metoprolol tartrate 25 mg twice daily, nifedipine 60 mg Daily, potassium chloride 10 mEq twice daily, rosuvastatin 5 mg daily Urinary incontinence 07/22/2009 Assessment & Plan (07/14/2023 2:07 PM ELECTRIC SHIPYARD OPERATOR): -chronic, stable -Discussed/ordered labs -continue on oxybutynin 5 mg twice daily Assessment & Plan (10/16/2021 11:18 AM CDT): HPI: Condition is not controlled A&P: Discussed/ordered labs, encouraged healthy, low carbohydrate lifestyle and at least 150min/week of exercise, stop taking the oxybutynin 5mg twice daily Trial on myrbetriq 25mg daily Assessment & Plan (04/08/2021 9:27 AM ELECTRIC SHIPYARD OPERATOR): HPI: Condition is stable, she reports that [...] daily Assessment & Plan (07/14/2023 2:02 PM ELECTRIC SHIPYARD OPERATOR): -chronic, stable -Discussed/ordered labs -continue seeing Cardiology [...] management Assessment & Plan (04/22/2022 8:01 AM ELECTRIC SHIPYARD OPERATOR): Stable/ Improved. Blood pressure is adequately controlled [...] Werner Assessment & Plan (04/08/2021 7:21 AM ELECTRIC SHIPYARD OPERATOR): HPI: Condition is stable A&P: Discussed/ordered labs, [...] time. Assessment & Plan (07/16/2020 12:26 PM ELECTRIC SHIPYARD OPERATOR): Patient's home blood pressures ranging 165-185/91-98. Will keep patient on Metoprolol 50mg BID since patient has not began the medication with the change (did not see [facility] message). Denies feeling symptomatic. Patient to keep home BP readings and bring to next follow up in 2 weeks with her home BP machine. Pt to let us know if she feels any adverse reaction to increasing the Metoprolol dose. Assessment & Plan (07/05/2020 1:28 PM ELECTRIC SHIPYARD OPERATOR): BP journal until next follow up (1-2 [...] daily Assessment & Plan (07/14/2023 2:06 PM ELECTRIC SHIPYARD OPERATOR): -chronic, stable -Discussed/ordered labs -continue on levothyroxine [...] day Assessment & Plan (04/22/2022 8:00 AM ELECTRIC SHIPYARD OPERATOR): Lipid abnormalities are stable. Pharmacotherapy as ordered. [...] day. Assessment & Plan (04/08/2021 7:19 AM ELECTRIC SHIPYARD OPERATOR): HPI: Condition is stable A&P: Discussed/ordered labs, [...] day. Assessment & Plan (07/05/2020 1:29 PM ELECTRIC SHIPYARD OPERATOR): Most recent thyroid function showed normalcy Will continue levothyroxien at 112 mcg daily Resolved Problems Problem Noted Date Diagnosed Date Resolved Date Tendonitis, Achilles, left 05/04/2023 0 07/12/2023 Assessment & Plan (05/04/2023 3:53 PM ELECTRIC SHIPYARD OPERATOR): Refer to podiatry for Achilles tendonitis Body mass index (BMI) 31.0-31.9, adult 02/09/2023 07/14/2023 Assessment & Plan (02/09/2023 9:26 AM CDT): BMI Follow-up includes: nutrition counseling. Stage 3a chronic kidney disease 02/09/2023 07/14/2023 Assessment & Plan (05/04/2023 3:55 PM ELECTRIC SHIPYARD OPERATOR): Referred back to Nephrology. However today her [...] tomatoes, oranges, milk, dark kathi and chocolate. Bibb juice, citrus juices, and tomato juice are [...] (07/08/2020): Added automatically from request for surgery [id number] Neuropathy 07/05/2020 07/12/2023 Overview (07/05/2020): noted during [...] podiatry Assessment & Plan (04/08/2021 9:25 AM ELECTRIC SHIPYARD OPERATOR): HPI: Condition is A&P: Discussed/ordered labs, encouraged [...] Team Description 02/21/2025 1:10 PM CDT Lab [address] [address] PAF (paroxysmal atrial fibrillation) 02/21/2025 Results Follow-Up [employer] [address] [place] [phone] Laura Machado MA Protime-INR 02/20/2025 [facility] Post Discharge Follow up phone call [facility] Emergency Department [address] [place] [phone] Dawn Bustamante RN 02/14/2025 Results Follow-Up [employer] [address] [place] [phone] Roxanne Werner MD Protime-INR, Basic metabolic panel, eGFR 02/12/2025 12:55 PM CDT Lab [address] [address] 02/12/2025 11:55 AM CDT Lab [address] [address] PAF (paroxysmal atrial fibrillation); Primary hypertension; Chronic left-sided low back pain without sciatica; Hyperlipidemia, unspecified hyperlipidemia type; Chronic diastolic (congestive) heart failure 02/12/2025 Anticoagulation Visit [employer] [address] [place] [phone] Laura Machado MA Paroxysmal atrial fibrillation (HCC) (Primary Dx) 02/12/2025 Results Follow-Up [employer] [address] [place] [phone] Laura Machado MA Protime-INR 02/09/2025 9:27 PM CDT - 02/10/2025 1:12 AM CDT Emergency [facility] Emergency Department [address] [place] [phone] Yulissa Mccain MD Coagulopathy (Primary Dx) Discharge Disposition: Discharge to home or self care 02/09/2025 3:10 PM CDT Lab [address] [address] PAF (paroxysmal atrial fibrillation) 01/26/2025 Telephone [employer] [address] [place] [phone] Emily Romero 01/22/2025 11:54 AM CDT - 01/22/2025 11:59 PM CDT Hospital Encounter [facility] Diagnostic Imaging [address] [place] [phone] Abdominal pain, unspecified abdominal location; Urinary tract infection without hematuria, site unspecified Discharge Disposition: Discharge to home or self care 01/22/2025 11:35 AM CDT Lab [address] [address] 01/18/2025 Anticoagulation Visit [employer] [address] [place] [phone] Laura Machado MA Paroxysmal atrial fibrillation (HCC) (Primary Dx) 01/17/2025 10:15 AM CDT Office Visit [employer] [address] [place] [phone] Roxanne Werner MD Longstanding persistent atrial fibrillation (HCC) (Primary Dx) 01/17/2025 Results Follow-Up [employer] [address] [place] [phone] Roxanne Werner MD Protime-INR 01/17/2025 Orders Only [employer] [address] [place] [phone] Roxanne Werner MD Primary hypertension (Primary Dx); Chronic left-sided low back pain without sciatica; Hyperlipidemia, unspecified hyperlipidemia type; Chronic diastolic (congestive) heart failure 01/12/2025 2:05 PM CDT Lab [address] [address] PAF (paroxysmal atrial fibrillation) 01/05/2025 Telephone [employer] [address] [place] [phone] Laura Machado MA Home INR Testing 01/05/2025 Orders Only [facility] Primary Care at [address] [phone] Karolyn Evans NP Screening mammogram for breast cancer (Primary Dx) 01/05/2025 Results Follow-Up [facility] Primary Care at [address] [phone] Karolyn Evans NP Screening Mammogram Bilateral W Gustavo 01/04/2025 8:49 AM CDT - 01/04/2025 11:59 PM CDT Hospital Encounter [facility] Imaging and Radiology [address] [place] [phone] Breast cancer screening by mammogram Discharge Disposition: Discharge to home or self care 01/01/2025 9:35 AM CDT Lab [address] [address] PAF (paroxysmal atrial fibrillation) 01/01/2025 Results Follow-Up [employer] [address] [place] [phone] Laura Machado MA Protime-INR 12/26/2024 7:43 PM CDT - 12/27/2024 8:31 AM CDT Emergency [facility] Emergency Department [address] [place] [phone] Calixto Prince MD Nonintractable headache, unspecified chronicity pattern, unspecified headache type (Primary Dx); Hypertension, unspecified type Discharge Disposition: Discharge to home or self care 12/20/2024 Results Follow-Up [employer] [address] [place] [phone] Roxanne Werner MD Lipid panel 12/18/2024 2:25 PM CDT Lab [address] [address] Aortic valve stenosis, etiology of cardiac valve disease unspecified 12/08/2024 Anticoagulation Visit [employer] [address] [place] [address] [phone] Laura Machado MA Paroxysmal atrial fibrillation (HCC) (Primary Dx) 12/04/2024 1:00 PM CDT - 12/04/2024 11:59 PM CDT Hospital Encounter [facility] Diagnostic Imaging [address] [place], [place] [phone] Chest pain, unspecified type Discharge Disposition: Discharge to home or self care 12/01/2024 1:15 PM CDT Lab [address] [address] PAF (paroxysmal atrial fibrillation) (HCC) 12/01/2024 Results Follow-Up [employer] [address] [place] [phone] Laura Machado MA Protime-INR from Last 3 Months Immunizations Immunization Administration Dates Next Due Influenza, Quad, Adjuvantate d, Intramuscular 03/19/2021 Influenza, Quadrivalent, Hig h Dose, Preservative Free, Intrr 02/09/2023,02/09/2022 Influenza, Trivalent, High D ose, Split, Preservative Free, Intramuscular 01/17/2024,03/05/2017,03/05/2015,05/21 Influenza, Unspecified 01/17/2024(Deferr ed: Patient Refused),03/27/2021,03/27/2021, [address] [place] [address] SARS-CoV-2 Monovalen t Vaccination (12+ YRS) 08/28/2020,08/28/2020,07/31/2020,07/31 [...] on file Legal Sex Female 2:53 PM ELECTRIC SHIPYARD OPERATOR Gender Identity Female 08/19/2020 7:43 PM [...] Foot Exam 1950 Hemoglobin A1C 07/16/2024 01/17/2024, 0308/2023, 05/04/2023, Additional history exists Covid-19 Vaccine (2024-06 6 season) 2025 02/25/2022, 08/26/2021, 03/19/2021, Additional history exists Influenza Vaccine (#1) 2025 , 02/09/2023, 02/09/2022, Additional history exists Depression Screening 01/16/2025 01/17/2024, 12/15/2023, 07/12/2023, Additional history exists Fall Risk Assessment 01/16/2025 01/17/2024, 12/15/2023, 07/12/2023, Additional history exists Well Visit 65+ 01/16/2025 01/17/2024, 07/10, 07/31/2021 Osteoporosis Screening-Bone Density Scan 07/27/2025 07/28/2023, 08/26/2020, 06/11/2015, Additional history exists Lipid Panel 12/18/2025 12/18/2024, 09/0 01/2024, 07/12/2023, Additional history exists eGFR 02/12/2026 02/12/2025, 100 07/2024, 12/26/2024, Additional history exists DTaP/Tdap/Td Vaccine (3 [...] SCREENING Routine 01/29/2022 COLONOSCOPY 07/15/2020 11:52 AM ELECTRIC SHIPYARD OPERATOR from Last 3 Months or Most Recently [...] CDT 02/21/2025 1:19 PM CDT Narrative KEREN Rojas 02/21/2025 1:59 PM CDT Patient is just starting on warfarin and will have additional lab that need drawn. Roxanne Werner MD LAB BLOOD ORDERABLES F inal Result KEREN GAMEZ [address] [place] [address] * eGFR (02/12/2025 2:30 PM CDT) eGFR [...] ORDERABLES F inal Result Performing Organization Address City/[facility]/ZIP Co de Phone Number KEREN [id number] [place] [employer] [place] [address] * Basic metabolic panel (02/12/2025 2:30 PM CDT) Sodium 142 135 - 145 mmol/L Potassium, pl 3.9 3.3 - 4.9 mmol/L [facility] Comment:Hemolysis present. R esults may be affected. Chloride 102 97 - 110 mmol/L [facility] CO2 25 22 - 32 mmol/L [facility] [place] Anion gap 15 2 - 15 mmol/L [facility] BUN 10 6 - 25 mg/dL [facility] Creatinine 0.94 0.60 - 1.10 mg/dL [facility] Glucose 180 70 - 199 mg/dL [facility] Comment: Interpretive Data Fasting glucose >/= 126 [...] 2022. Calcium 9.7 8.5 - 10.3 mg/dL [facility] Blood 02/12/2025 2:30 PM CDT 02/12/2025 2:30 PM CDT Roxanne Werner MD LAB BLOOD ORDERABLES F inal Result [facility] [id number] [place] [address] * (ABNORMAL) Protime-INR (02/12/2025 12:22 PM CDT) PT 23.7(H) 10.2 - 13.5 sec INR 2.13(H) 0.90 - 1.20 [facility] Comment: Interpretive data Oral anticoagulant therapeutic ranges: Venous thromboembolism prophylaxis or treatment: 2.0-3.0 CARDIOLOGY Standard range: 2.0-3.0 High-intensity range: 2.5-3.5 Refer to indication-specific guidelines for appropriate target ranges for prosthetic heart valve replacement. Current interpretive data was last revised on 2019. Blood 02/12/2025 12:2 2 PM CDT 02/12/2025 12:22 PM CDT Narrative KEREN GAMEZ - 02/12/2025 12:45 PM CDT Patient is just starting on warfarin and will have additional lab that need drawn. Roxanne Werner MD LAB BLOOD ORDERABLES F inal Result Performing Organization Address [facility] Co de Phone Number KEREN [id number] [address] [place] [address] * eGFR (02/09/2025 8:18 PM [...] ORDERABLES Fi nal Result Performing Organization Address City/[facility]/ZIP Co de Phone Number KEREN [phone] [address] [place] [address] * (ABNORMAL) Differential, auto (02/09/2025 8:18 PM CDT) Neutrophil abs 4.02 1.50 - 6.50 K/cumm Imm gran abs 0.02 0.00 - 0.10 K/cumm [facility] Lymphocyte abs 1.85 0.80 - 3.30 K/cumm [facility] Monocyte abs 0.94(H) 0.20 - 0.80 K/cumm [facility] CH Eosinophil abs 0.07 0.00 - 0.50 K/cumm [facility] CH Basophil abs 0.02 0.00 - 0.10 K/cumm [facility] Neutrophil pct 58.1 % [facility] Comment: Interpretive Data Percent cell count reference ranges are not reported, since discordance with absolute values may lead to misinterpretation of CBC data. Current Interpretive Data was last revised on 2017. Imm gran pct 0.3 % [facility] Comment: Interpretive Data Percent cell count reference ranges are not reported, since discordance with absolute values may lead to misinterpretation of CBC data. Current Interpretive Data was last revised on 2017. Lymphocyte pct 26.7 % [facility] Comment: Interpretive Data Percent cell count reference ranges are not reported, since discordance with absolute values may lead to misinterpretation of CBC data. Current Interpretive Data was last revised on 2017. Monocyte pct 13.6 % [facility] Comment: Interpretive Data Percent cell count reference ranges are not reported, since discordance with absolute values may lead to misinterpretation of CBC data. Current Interpretive Data was last revised on 2017. Eosinophil pct 1.0 % [facility] Comment: Interpretive Data Percent cell count reference ranges are not reported, since discordance with absolute values may lead to misinterpretation of CBC data. Current Interpretive Data was last revised on 2017. Basophil pct 0.3 % [facility] Comment: Interpretive Data Percent cell count reference ranges are not reported, since discordance with absolute values may lead to misinterpretation of CBC data. Current Interpretive Data was last revised on 2017. Blood 02/09/2025 8:18 PM CDT 02/09/2025 8:28 PM CDT Yulissa Mccain MD LAB BLOOD ORDERABLES Fi nal Result Performing Organization Address City/[facility]/ZIP Co de Phone Number KEREN GAMEZ [address] [address] Department [employer] [place] [address] * CBC with auto differential (02/09/2025 8:18 PM CDT) WBC 6.92 3.80 - 9.90 K/cumm Hgb 13.5 11.9 - 15.5 g/dL [facility] Hct 41.8 35.6 - 45.5 % [facility] [place] Plt 301 150 - 400 K/cumm [facility] MPV 10.8 9.1 - 12.3 fL [facility] RBC 4.94 3.90 - 5.20 M/cumm [facility] MCV 84.6 81.3 - 96.4 fL [facility] MCH 27.3 27.1 - 33.3 pg [facility] MCHC 32.3 32.3 - 35.7 g/dL [facility] RDW CV 14.9 11.1 - 14.9 % [facility] RDW SD 45.7 35.7 - 48.1 fL [facility] NRBC abs 0.00 0.00 - 0.01 K/cumm [facility] Blood Venous blood specimen / Unknown 02/09/2025 8:18 PM CDT 02/09/2025 8:28 PM CDT Yulissa Mccain MD LAB BLOOD ORDERABLES Fi nal Result KEREN GAMEZ [address] Department [employer] [place] [address] * (ABNORMAL) Protime-INR (02/09/2025 8:18 PM CDT) PT 69.5(H) 10.2 - 13.5 sec Comment:Critical result call ed to and read back by Jeannie Asif (RN _) on 02/09/2025 21:39:36 CDT _ to Bushra Quijano _. INR 6.38(C) 0.90 - 1.20 [facility] Comment: Critical result called to and read [...] MD LAB BLOOD ORDERABLES Fi nal Result [facility] [address] [address] Department [place] [address] * Comprehensive metabolic panel (02/09/2025 8:18 PM CDT) Sodium 141 135 - 145 mmol/L Potassium, pl 3.3 3.3 - 4.9 mmol/L [facility] Chloride 104 97 - 110 mmol/L [facility] CO2 23 22 - 32 mmol/L [facility] Anion gap 14 2 - 15 mmol/L [facility] BUN 11 6 - 25 mg/dL [facility] Creatinine 0.97 0.60 - 1.10 mg/dL [facility] Glucose 145 70 - 199 mg/dL [facility] Comment: Interpretive Data Fasting glucose >/= 126 [...] CH ALT 22 7 - 45 Units/L [facility] CH AST 26 10 - 45 Units/L [facility] Blood 02/09/2025 8:18 PM CDT 02/09/2025 8:28 PM CDT Yulissa Mccain MD LAB BLOOD ORDERABLES Fi nal Result Performing Organization Address City/[facility]/ZIP Co de Phone Number KEREN [phone] [address] Department [place] [address] * ECG 12 lead (02/09/2025 8:08 PM CDT) 02/09/2025 8:08 PM CDT Narrative [facility] - 02/10/2025 8:35 AM CDT Vent Rate: 61 bpm RR Interval: 971 msec UT Interval: 0 msec QRS Duration: 93 msec QT Interval: 374 msec QTC Interval: 378 msec P-R-T Urich: 0 - -9 - 62 degrees IMPRESSION: ATRIAL FIBRILLATION MODERATE VOLTAGE CRITERIA FOR LVH, CONSIDER NORMAL VARIANT [MEETS CRITERIA IN ONE OF: R(aVL), S(V1), R(V5), R(V5/V6)+S(V1)] NONSPECIFIC T-WAVE ABNORMALITY ABNORMAL RHYTHM ECG NO CHANGE FROM PREVIOUS TRACING NOTED Electronically Signed By: Brenden Gannon MD Yulissa Mccain MD ECG ORDERABLES Final R esult [facility] [employer] [facility] * (ABNORMAL) Protime-INR (02/09/2025 3:50 PM CDT) PT 80.1(H) 10.2 - 13.5 sec Comment:Critical result call ed to and read back by Soha Lopez on 02/09/2025 17:31:34 CDT _ to _ Bushra Quijano . INR 7.37(C) 0.90 - 1.20 KEREN Comment: Critical result called to and read back by Soha Lopez on 02/09/2025 17:31:34 CDT _ to _ Bushra Quijano . Interpretive data Oral anticoagulant therapeutic ranges: Venous thromboembolism prophylaxis or treatment: 2.0-3.0 CARDIOLOGY Standard range: 2.0-3.0 High-intensity range: 2.5-3.5 Refer to indication-specific guidelines for appropriate target ranges for prosthetic heart valve replacement. Current interpretive data was last revised on 2019. Blood 02/09/2025 3:50 PM CDT 02/09/2025 3:50 PM CDT Narrative KEREN GAMEZ - 02/09/2025 5:32 PM CDT Patient is just starting on warfarin and will have additional lab that need drawn. Roxanne Werner MD LAB BLOOD ORDERABLES F inal Result [facility] [place] [address] [address] [place] [address] * XR KUB (01/22/2025 12:17 PM CDT) [...] abs 0.02 0.00 - 0.50 K/cumm [facility] Basophil abs 0.03 0.00 - 0.10 K/cumm [facility] Neutrophil pct 64.1 % [facility] Comment: Interpretive Data Percent cell count reference ranges are not reported, since discordance with absolute values may lead to misinterpretation of CBC data. Current Interpretive Data was last revised on 2017. Imm gran pct 0.5 % [facility] Comment: Interpretive Data Percent [...] on 2017. Eosinophil pct 0.3 % [facility] Comment: Interpretive Data Percent cell count reference ranges are not reported, since discordance with absolute values may lead to misinterpretation of CBC data. Current Interpretive Data was last revised on 2017. Basophil pct 0.5 % [facility] Comment: Interpretive Data Percent cell count reference ranges are not reported, since discordance with absolute values may lead to misinterpretation of CBC data. Current Interpretive Data was last revised on 2017. Blood 01/22/2025 11:3 8 AM CDT 01/22/2025 11:38 AM CDT Meir Ibrahim MD LAB BLOOD ORDERABLES Final Re sult Performing Organization Address City/[facility]/ZIP Co de Phone Number KEREN GAMEZ [phone] [address] [place] [employer] [place] [address] * (ABNORMAL) Urinalysis reflex to [...] tendency for uric acid stone formation. Source: [facility] Current Interpretive Data was last revised on [...] MICROBIOLOGY - GENERAL OR DERABLES Final Result Performing Organization Address City/[facility]/ZIP Co de Phone Number KEREN VERA [address] [address] Department [place] [address] * (ABNORMAL) CBC with auto differential (01/22/2025 11:38 AM CDT) Pathologist [facility] WBC 6.53 3.80 - 9.90 K/cumm Hgb 14.7 11.9 - 15.5 g/dL [facility] Hct 46.1(H) 35.6 - 45.5 % [facility] Plt 343 150 - 400 K/cumm [facility] MPV 10.6 9.1 - 12.3 fL [facility] RBC 5.41(H) 3.90 - 5.20 M/cumm [facility] MCV 85.2 81.3 - 96.4 fL [facility] MCH 27.2 27.1 - 33.3 pg [facility] MCHC 31.9(L) 32.3 - 35.7 g/dL [facility] RDW CV 14.4 11.1 - 14.9 % [facility] RDW SD 45.0 35.7 - 48.1 fL [facility] NRBC abs 0.00 0.00 - 0.01 K/cumm [facility] Blood 01/22/2025 11:3 8 AM CDT 01/22/2025 11:38 AM CDT us Meir Ibrahim MD LAB BLOOD ORDERABLES Final Re sult KEREN [id number] [address] Department [place] [address] * (ABNORMAL) Protime-INR (01/12/2025 3:07 PM CDT) Pathologist [facility] PT 20.2(H) 10.2 - 13.5 sec INR 1.81(H) 0.90 - 1.20 [facility] Comment: Interpretive data Oral anticoagulant therapeutic ranges: Venous thromboembolism prophylaxis or treatment: 2.0-3.0 CARDIOLOGY Standard range: 2.0-3.0 High-intensity range: 2.5-3.5 Refer to indication-specific guidelines for appropriate target ranges for prosthetic heart valve replacement. Current interpretive data was last revised on 2019. Blood 01/12/2025 3:07 PM CDT 01/12/2025 3:07 PM CDT Narrative KEREN - 01/12/2025 3:25 PM CDT Patient is just starting on warfarin and will have additional lab that need drawn. Roxanne Werner MD LAB BLOOD ORDERABLES F inal Result KEREN [id number] [place] [address] * Screening Mammogram Bilateral W Gustavo (01/04/2025 [...] CDT 01/01/2025 10:19 AM CDT Narrative KEREN GAMEZ - 01/01/2025 10:42 AM CDT Patient is just starting on warfarin and will have additional lab that need drawn. Roxanne Werner MD LAB BLOOD ORDERABLES F inal Result KEREN GAMEZ [id number] [address] [place] [address] * CT Head W Contrast (12/27/2024 4:36 [...] artery likely related to origin of bilateral [employer]CH[employer]ICIAN; however, possibility of vertebrobasilar vasospasm not completely excluded but considered less likely. 4. Major dural venous sinuses are visualized patent. Stat report by [facility] Electronically signed by: Bartolome Mcintyre M.D. Narrative [...] well aerated. Vasculature: The vessels of the wzksqu-[id number] are patent, without identified aneurysm. Bilateral vertebral arteries and basilar artery are small in caliber. Bilateral [employer] TECHNICIAN demonstrates origin. Atherosclerotic changes of intracranial carotid [...] well aerated. Vasculature: The vessels of the lalvon-kr-Bwtubs are patent, without identified aneurysm. Bilateral vertebral arteries and basilar artery are small in caliber. Bilateral [employer] TECHNICIAN demonstrates origin. Atherosclerotic changes of intracranial carotid artery segments. Veins: Major dural venous sinuses are visualized patent. IMPRESSION: 1. No acute hemorrhage. 2. Cerebral volume loss and white matter changes as described above. 3. No identified vascular occlusion or aneurysm. Small caliber vertebral arteries and basilar artery likely related to origin of bilateral [employer] TECHNICIAN; however, possibility of vertebrobasilar vasospasm not completely excluded but considered less likely. 4. Major dural venous sinuses are visualized patent. Stat report by [facility] Electronically signed by: Bartolome Mcintyre M.D. Ayad [...] Trop T hs pct delta -6 % [facility] Trop T hs interp Equivocal [facility] Blood 12/27/2024 12:2 5 AM CDT 12/27/2024 1:01 AM CDT Calixto Prince MD LAB BLOOD ORDERABLES Yessica l Result Performing Organization Address [facility] Co de Phone Number [facility] [address] [place] [address] * (ABNORMAL) Protime-INR (12/27/2024 12:25 AM CDT) PT 16.1(H) 10.2 - 13.5 sec INR 1.43(H) 0.90 - 1.20 [facility] Comment: Interpretive data Oral anticoagulant therapeutic ranges: Venous thromboembolism prophylaxis or treatment: 2.0-3.0 CARDIOLOGY Standard range: 2.0-3.0 High-intensity range: 2.5-3.5 Refer to indication-specific guidelines for appropriate target ranges for prosthetic heart valve replacement. Current interpretive data was last revised on 2019. Blood 12/27/2024 12:2 5 AM CDT 12/27/2024 12:38 AM CDT Result [facility] Calixto Prince MD LAB BLOOD ORDERABLES Yessica l Result Performing Organization Address City/[facility]/ZIP Co de Phone Number [facility] [address] [place] [address] * (ABNORMAL) Troponin T high-sensitivity 2-hour (12/26/2024 10:46 PM CDT) Trop T hs 94(H) <=14 ng/L Comment: Interpretive Data For further hscTnT resources including the diagnostic algorithm and an aid in interpretation, copy and paste this link: https://nrl.testcatalog.org/show/hsTrop Current Interpretive Data last revised 2020. Trop T hs pct delta -9 % [facility] G[facility] Trop T hs interp Equivocal KEREN GAMEZ Blood 12/26/2024 10:4 6 PM CDT 12/26/2024 10:52 PM CDT us Calixto Prince MD LAB BLOOD ORDERABLES Yessica ora Result KEREN GAMEZ [address] [address] Department [place] [address] * CT Head WO Contrast (12/26/2024 9:45 PM CDT) Anatomical Region Laterality Modality Head and Neck N/A Computed Tomogra phy 12/26/2024 9:42 PM CDT Impressions 12/27/2024 7:36 AM CDT CHRONIC ISCHEMIC WHITE MATTER CHANGES MILD CORTICAL ATROPHY Stat report by [facility] Electronically signed by: Bartolome Mcintyre M.D. Narrative [...] are atherosclerotic cerebrovascular calcifications. Procedure Note Bartolome Mcintyre MD - 12/27/2024 EXAMINATION: CT HEAD WO [...] CHANGES MILD CORTICAL ATROPHY Stat report by [facility] Electronically signed by: Bartolome Mcintyre M.D. Calixto Prince MD IMG CT PROCEDURES Final R esult * ECG 12 lead (12/26/2024 9:36 PM CDT) 12/26/2024 9:36 PM CDT Narrative [facility] - 12/27/2024 7:49 AM CDT Vent Rate: 55 bpm RR Interval: 1088 msec UT Interval: 0 msec QRS Duration: 86 msec QT Interval: 411 msec QTC Interval: 399 msec P-R-T Urich: 0 - -6 - -2 degrees IMPRESSION: ATRIAL FIBRILLATION WITH SLOW VENTRICULAR RESPONSE NONSPECIFIC T-WAVE ABNORMALITY ABNORMAL RHYTHM ECG Compared to prior EKG atrial fibrillation has replaced sinus bradycardia Electronically Signed By: Daquan Brooks MD [facility] Calixto Prince MD ECG ORDERABLES Final Res ult [facility] * (ABNORMAL) Troponin T high-sensitivity series (baseline, [...] ed Result - Final Performing Organization Address [facility]/ZIP Co de Phone Number KEREN GAMEZ [phone] [address] Department [place] [address] * Influenza A/B, RSV, and COVID-19 PCR Nasopharyngeal (12/26/2024 8:49 PM CDT) [facility] COVID-19 RNA Negative Negative Influenza A RNA Negative Negative [facility] Influenza B RNA Negative Negative [facility] RSV RNA Negative Negative [facility] Comment: Interpretive data: Testing performed by [facility]. This test is performed using the [employer]her[employer] Xpert Xpress CoV-2/Flu/RSV plus assay. This is a multiplex, real-time reverse transcriptase PCR assay intended for the qualitative detection of nucleic acid from SARS-CoV-2, influenza A, influenza B, and respiratory syncytial virus. This assay has been cleared by the [place] Food and Drug administration. The performance characteristics have been verified by the [facility]. Results must be considered in the clinical context, and a negative result does not rule out infection. Interpretive Data last revised 2023 Nasopharyngeal 12/26/2024 8: 49 PM CDT 12/26/2024 8:53 PM CDT Narrative [facility] - 12/26/2024 9:45 PM CDT Is the Patient experiencing symptoms consistent with COVID?->Yes Calixto Prince MD LAB MICROBIOLOGY - GENERA L ORDERABLES Final Result Performing Organization Address [facility]/ZIP Co de Phone Number KEREN GAMEZ [address] [address] Department [place] [address] * (ABNORMAL) eGFR (12/26/2024 8:49 PM CDT) Pathologist [facility] eGFR 46(L) >=60 mL/min/1. 73 m2 Comment: [...] MD LAB BLOOD ORDERABLES Yessica payan Result [facility] [address] [address] Department [place] [address] * (ABNORMAL) Differential, auto (12/26/2024 8:49 PM CDT) Neutrophil abs 4.52 1.50 - 6.50 K/cumm Imm gran abs 0.02 0.00 - 0.10 K/cumm [facility] Lymphocyte abs 2.06 0.80 - 3.30 K/cumm [facility] Monocyte abs 1.13(H) 0.20 - 0.80 K/cumm [facility] Eosinophil abs 0.03 0.00 - 0.50 K/cumm [facility] Basophil abs 0.02 0.00 - 0.10 K/cumm [facility] Neutrophil pct 58.0 % [facility] Comment: Interpretive Data Percent cell count reference ranges are not reported, since discordance with absolute values may lead to misinterpretation of CBC data. Current Interpretive Data was last revised on 2017. Imm gran pct 0.3 % [facility] Comment: Interpretive Data Percent cell count reference ranges are not reported, since discordance with absolute values may lead to misinterpretation of CBC data. Current Interpretive Data was last revised on 2017. Lymphocyte pct 26.5 % [facility] Comment: Interpretive Data Percent cell count reference ranges are not reported, since discordance with absolute values may lead to misinterpretation of CBC data. Current Interpretive Data was last revised on 2017. Monocyte pct 14.5 % KEREN Comment: Interpretive Data Percent cell count reference ranges are not reported, since discordance with absolute values may lead to misinterpretation of CBC data. Current Interpretive Data was last revised on 2017. Eosinophil pct 0.4 % KEREN Comment: Interpretive Data Percent cell count reference ranges are not reported, since discordance with absolute values may lead to misinterpretation of CBC data. Current Interpretive Data was last revised on 2017. Basophil pct 0.3 % [facility] [place] Comment: Interpretive Data Percent cell count reference ranges are not reported, since discordance with absolute values may lead to misinterpretation of CBC data. Current Interpretive Data was last revised on 2017. Blood 12/26/2024 8:49 PM CDT 12/26/2024 8:55 PM CDT us Calixto Prince MD LAB BLOOD ORDERABLES Yessica l Result [facility] [address] [place] [address] * (ABNORMAL) Urinalysis reflex to microscopic and culture Urine (12/26/2024 8:49 PM CDT) Color, ur Yellow Yellow Clarity, ur Turbid(A) Clear [facility] Specific gravity, ur 1.021 1.003 - 1.030 [facility] pH, urine 6.0 [facility] Comment: Interpretive Data U rine pH is affected by diet, medications, systemic acid-base disturbances, and renal tubular function. pH may affect urinary stone formation. For example, urine pH below 6.0 may help reduce the tendency for calcium phosphate stones and pH greater than 6.0 may reduce the tendency for uric acid stone formation. Source: [facility] Current Interpretive Data was last revised on [...] for microscopic UA and culture not met. [facility] Urine 12/26/2024 8:49 PM CDT 12/26/2024 8:54 PM CDT us Calixto Prince MD LAB MICROBIOLOGY - GENERA L ORDERABLES Final Result [facility] [address] Department [place] [address] * CBC with auto differential (12/26/2024 8:49 PM CDT) WBC 7.78 3.80 - 9.90 K/cumm Hgb 13.8 11.9 - 15.5 g/dL [facility] Hct 42.6 35.6 - 45.5 % [facility] Plt 308 150 - 400 K/cumm [facility] MPV 10.6 9.1 - 12.3 fL [facility] RBC 4.97 3.90 - 5.20 M/cumm [facility] MCV 85.7 81.3 - 96.4 fL [facility] MCH 27.8 27.1 - 33.3 pg [facility] MCHC 32.4 32.3 - 35.7 g/dL [facility] RDW CV 14.2 11.1 - 14.9 % [facility] RDW SD 45.0 35.7 - 48.1 fL [facility] NRBC abs 0.00 0.00 - 0.01 K/cumm [facility] Blood Venous blood specimen / Unknown 12/26/2024 8:49 PM CDT 12/26/2024 8:55 PM CDT us Calixto Prince MD LAB BLOOD ORDERABLES Yessica l Result [facility] [address] [address] Department [place] [address] * (ABNORMAL) Comprehensive metabolic panel (12/26/2024 8:49 [...] MD LAB BLOOD ORDERAB[place] [address] [facility] [place] [address] * Lipid panel (12/18/2024 2:51 PM CDT) [...] 3. Martin M et al. [place] Cardiol. 2020 September 07;5(5):540-548. doi: [...] 2:51 PM CDT 12/18/2024 2:51 PM CDT us Roxanne Werner MD LAB BLOOD ORDERABLES F inal Result KEREN GAMEZ [address] [address] Department [place] [address] * XR Chest PA Lateral 2 Views [...] ORDERABLES F inal Result Performing Organization Address City/State/[facility] Co de Phone Number KEREN [address] [address] [place] [address] * (ABNORMAL) Hemoglobin A1c (01/17/2024 11:43 AM CDT) Hgb A1C 6.6(H) 4.0 - 5.6 % Estimated Average Glucose 143 mg/dL KEREN BROWNLEE ([place]) Comment: The ADA recommends reporting an estimated Average Glucose (eAG) with all Hemoglobin A1c results using the equation derived from a study of 507 normal and diabetic adults. Minority populations were underrepresented and children were not included. (Diabetes Care 31:3136-3626, 2008). The eAG is not equivalent to a fasting glucose. Blood 01/17/2024 11:4 3 AM CDT 01/17/2024 11:53 AM CDT Karolyn Evans NP LAB BLOOD ORDERABLES Final R esult Performing Organization Address City/[facility] Co de Phone Number KEREN BROWNLEE ([place]) 1 [facility] Department [place] [address] * Dexa Axial Skeleton Bone Density 1 or 2 Site (07/28/2023 10:21 AM CDT) Anatomical Region Laterality Modality Body N/A Other 07/28/2023 7:23 PM CDT Narrative 07/28/2023 7:24 PM CDT EXAM DESCRIPTION: DEXA AXIAL SKELETON BONE DENSITY 1 OR MORE SITES REASON FOR STUDY: 73 y/o year old F with given history of: Preventative screening 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 Procedure Date: 07/15/2020 Procedure: Colonoscopy Indications: High risk colon cancer surveillance: Personalhistory of colonic polyps, Last colonoscopy: 2015 Providers: Victor Manuel Noguera M.D., ADRIENNE Lemus (Anesthesia Staff), Bridgett Cullen RN, MUARA Corbett Referring MD: Sudhir A. Quartzsite, M.D. Medicines: Monitored Anesthesia Care Complications: No [...] by the physician, the nurse and the wall taper in the procedure room. Mental Status Examination: [...] for surveillance. Procedure Code(s): --- Professional --- 83117, Colonoscopy, flexible; with removal of tumor(s), polyp(s), or other lesion(s) by snare technique 25863, 59, Colonoscopy, flexible; with biopsy,single or multiple Diagnosis Code(s): --- Professional --- K63.5, Polyp of colon Z86.010, Personal history of colonic polyps K57.30, Diverticulosis of large intestine without perforation or abscess without bleeding CPT copyright 2019 [employer]. All rights reserved. The codes documented in this report are preliminary and upon supervisor education reviewmay be revised to meet current compliance requirements. Electronically signed by Victor Manuel Noguera M.D. Victor Manuel Noguera M.D. 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
--- OUTSIDE RECORDS SUMMARY | 2025-03-01 06:56 | XMS_ITS | Encounter Summary ---
Author Organization [facility] Health Address [address] [place] [address] Care Team Providers Care Professor Of Visual Arts Name Role Phone Michael Smith MD Primary Care Provider [phone] Encounter Details Date Type Department Care Team (Late st Contact Info) Description 06/14/[address] [facility] Outpatient Visit [facility] [address] [place] [address] [place] [id number] [address] Social History Tobacco Use Types [...] on filedocumented in this encounter Care Teams Professor Of Visual Arts Relationship Specialty Start Date End Date Michael Smith MD PCP - General Internal Medicine 10/13/12 documented as of this encounter
--- OUTSIDE RECORDS SUMMARY | 2025-03-01 06:56 | XMS_ITS | Encounter Summary ---
Author Organization [facility] Address [address] [place] [address] Care Team Providers Care Hvac Refrigeration Technician Name Role Phone Michael Smith MD Primary Care Provider [phone] Reason for Visit * Reason Comments Medication Refill Encounter Details Date Type Department Care Team (Late st Contact Info) Description 04/04/2018 Refill [facility] Primary Care - [place] [address] [facility] [address] [place] [address] Michael Smith MD 300 [facility] [address] [place] [address] Social History Tobacco Use Types Packs/Day Years Used Date Smoking Tobacco: Never Smokeless Tobacco: Never Alcohol Use Standard Drinks/Week Comments No 0 (1 standard drink = 0.6 oz pur e alcohol) Comments No Sex and Gender Information Value Date Recorded Sex Assigned at Not on file Legal Sex Female 4:52 AM EXTERMINATOR TERMITE Gender Identity Not on file Sexual Orientation Not on file Occupation Industry Job Start Date Job End Date Not on file Not on file Not on file Not on file documented as of this encounter Miscellaneous Notes * Telephone Encounter - Ayse Ward - 04/05/2018 7:06 AM CST Last ov-06/28/2017 Last refill- 05/31/2017 RMINATOR TERMITE documented in this encounter Plan of Treatment Not on file documented as of this encounter Visit Diagnoses Not on filedocumented in this encounter Additional Health Concerns Infection Onset Date Last Indicated Resolved Time R/O COVID-19 05/17/2020 05/20/2020 05/20/2020 3:21 PM EXTERMINATOR TERMITE documented as of this encounter Care Teams Hvac Refrigeration Technician Relationship Specialty Start Date End Date Michael Smith MD 300 [facility] [address] [place] [address] PCP - General 04/28/01 10/23/20 documented as of this encounter
--- OUTSIDE RECORDS SUMMARY | 2025-03-01 06:57 | XMS_ITS | Encounter Summary ---
Author Organization [facility] Healthcare Address [address] [place] [address] Care Team Providers Care Sheep Boner Name Role Phone Roxanne Werner MD Unavailable [phone] Ata Bronson DPM Unavailable Meir Ibrahim MD Primary Care Provider [phone] Encounter Details Date Type Department Care Team (Late st Contact Info) Description 01/17/2025 Results Follow-Up [place] [employer] [address] [address] Roxanne Werner MD [address] [place] [address] [address] Protime-INR Social History Tobacco Use Types Packs/Day [...] on file Legal Sex Female 2:53 PM PLATE WORKER Gender Identity Female 08/19/2020 7:43 PM CDT Sexual Orientation Straight 09/24/2020 8: 49 AM CDT 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
--- OUTSIDE RECORDS SUMMARY | 2025-03-01 06:57 | XMS_ITS | Encounter Summary ---
Author Organization [facility] Address [address] [place] [address] Care Team Providers Care Spanish Lecturer Name Role Phone Michael Smith MD Primary Care Provider [phone] Encounter Details Date Type Department Care Team (Late st Contact Info) Description 04/06/2007 Orders Only [facility] Internal Medicine [address] [place] [address] Michael Smith MD 300 [facility] [address] [place] [address] Social History Tobacco Use Types Packs/Day Years Used Date Smoking Tobacco: Never Assessed Comments Unknown Sex and Gender Information Value Date Recorded Sex Assigned at Not on file Legal Sex Female 4:52 AM PROCESS AREA SUPERVISOR Gender Identity Not on file Sexual Orientation Not on file documented as of this encounter Progress Notes * Michael Smith MD - 09/22/2007 8:37 PM CDT TIME:10:00 am PATIENT`S HOME PHONE: PATIENT`S WORK PHONE: PATIENT`S INSURANCE: [employer] PPO WHO TOOK THE CALL: Giselle Gamino L GENERAL INFORMATION PATIENT STATUS: Established Patient. WHO CALLED: Pharmacy called. PHARMACY NUMBER: [phone] SECTION 1: REQUESTED ACTION nabila 04/06/07 at [...] R/O COVID-19 05/17/2020 05/20/2020 05/20/2020 3:21 PM PROCESS AREA SUPERVISOR documented as of this encounter Care Teams Spanish Lecturer Relationship Specialty Start Date End Date Michael Smith MD 300 [facility] [address] [place] [address] PCP - General 04/28/01 10/23/20 documented as of this encounter
--- OUTSIDE RECORDS SUMMARY | 2025-03-01 06:57 | XMS_ITS | Encounter Summary ---
Author Organization [facility] Address [address] [place] [address] Care Team Providers Care Seal Delivery Vehicle Team Technician Name Role Phone Michael Smith MD Primary Care Provider [phone] Encounter Details Date Type Department Care Team (Late st Contact Info) Description 08/17/2006 Outpatient Historical [facility] Internal Medicine [address] [place] [address] Michael Smith MD 300 [facility] [address] [place] [address] Social History Tobacco Use Types Packs/Day Years Used Date Smoking Tobacco: Never Assessed Comments Unknown Sex and Gender Information Value Date Recorded Sex Assigned at Not on file Legal Sex Female 4:52 AM BILLIARD TABLE REPAIRER Gender Identity Not on file Sexual Orientation [...] R/O COVID-19 05/17/2020 05/20/2020 05/20/2020 3:21 PM BILLIARD TABLE REPAIRER documented as of this encounter Care Teams Seal Delivery Vehicle Team Technician Relationship Specialty Start Date End Date Michael Smith MD 300 [facility] [address] [place] [address] PCP - General 04/28/01 10/23/20 documented as of this encounter
--- OUTSIDE RECORDS SUMMARY | 2025-03-01 06:57 | XMS_ITS | Encounter Summary ---
Author Organization [facility] Address [address] [place] [address] Care Team Providers Care Milled Rubber Tender Name Role Phone Michael Smith MD Primary Care Provider [phone] Encounter Details Date Type Department Care Team (Late st Contact Info) Description 03/17/2004 Outpatient Historical [facility] Support Serv. (Adt Cardiology-[facility]J) [address] [place] [address] Anahi Chaves MD [address] [address] [address] [place] [address] Social History Tobacco Use Types Packs/Day Years Used Date Smoking Tobacco: Never Assessed Comments Unknown Sex and Gender Information Value Date Recorded Sex Assigned at Not on file Legal Sex Female 4:52 AM SEAFOOD PACKER Gender Identity Not on file Sexual Orientation Not on file documented as of this encounter Plan of Treatment Not on file documented as of this encounter Visit Diagnoses Not on filedocumented in this encounter Additional Health Concerns Infection Onset Date Last Indicated Resolved Time R/O COVID-19 05/17/2020 05/20/2020 05/20/2020 3:21 PM SEAFOOD PACKER documented as of this encounter Care Teams Milled Rubber Tender Relationship Specialty Start Date End Date Michael Smith MD 300 [facility] [address] [place] [address] PCP - General 04/28/01 10/23/20 documented as of this encounter
--- OUTSIDE RECORDS SUMMARY | 2025-03-01 06:57 | XMS_ITS | Encounter Summary ---
Author Organization [facility] Address [address] [facility] Attn: Epic Prelude ADT [place] [address] Care Team Providers Care Metal Roofing Mechanic Name Role Phone Michael Smith MD Primary Care Provider [phone] Encounter Details Date Type Department Care Team (Late st Contact Info) Description 06/18/1993 Outpatient Historical Michael Smith MD [address] [place] [address] Social History Tobacco Use Types Packs/Day Years Used Date Smoking Tobacco: Never Assessed Comments Unknown Sex and Gender Information Value Date Recorded Sex Assigned at Not on file Legal Sex Female 4:52 AM FARMWORKER FIELD CROP Gender Identity Not on file Sexual Orientation Not on file documented as of this encounter Plan of Treatment Not on file documented as of this encounter Visit Diagnoses Not on filedocumented in this encounter Additional Health Concerns Infection Onset Date Last Indicated Resolved Time R/O COVID-19 05/17/2020 05/20/2020 05/20/2020 3:21 PM FARMWORKER FIELD CROP documented as of this encounter Care Teams Metal Roofing Mechanic Relationship Specialty Start Date End Date Michael Smith MD [address] [place] [address] PCP - General 04/28/01 10/23/20 documented as of this encounter
--- OUTSIDE RECORDS SUMMARY | 2025-03-01 06:57 | XMS_ITS | Encounter Summary ---
Author Organization [facility] Address [address] [place] [address] Care Team Providers Care Delinquency Prevention Officer Name Role Phone Michael Smith MD Primary Care Provider [phone] Encounter Details Date Type Department Care Team (Latest Contact Info) Description 09/26/2004 Outpatient Historical [facility] Jonel Mulligan MD [address] [facility] [address] [place] [address] SCREENING MAMM-MAILG NEOPL-OTHER (Primary Dx) Social History Tobacco Use Types Packs/Day Years Used Date Smoking Tobacco: Never Assessed Comments Unknown Sex and Gender Information Value Date Recorded Sex Assigned at Not on file Legal Sex Female 4:52 AM BRAKE OPERATOR SHEET METAL Gender Identity Not on file Sexual Orientation Not on file documented as of this encounter Plan of Treatment Not on file documented as of this encounter Visit Diagnoses Diagnosis Other screening mammogram- Primary documented in this encounter Additional Health Concerns Infection Onset Date Last Indicated Resolved Time R/O COVID-19 05/17/2020 05/20/2020 05/20/2020 3:21 PM BRAKE OPERATOR SHEET METAL documented as of this encounter Care Teams Delinquency Prevention Officer Relationship Specialty Start Date End Date Michael Smith MD [address] [place] [address] PCP - General 04/28/01 10/23/20 documented as of this encounter
--- OUTSIDE RECORDS SUMMARY | 2025-03-01 06:57 | XMS_ITS | Encounter Summary ---
Author Organization [facility] Healthcare Address [address] [place] [address] Care Team Providers Care Moid Middle School Teacher Name Role Phone Roxanne Werner MD Unavailable [phone] Ata Bronson DPM Unavailable [phone] Karolyn Evans NP Primary Care Provider [phone] Meir Ibrahim MD Primary Care Provider [phone] Encounter Details Date Type Department Care Team (Late st Contact Info) Description 01/01/2025 Results Follow-Up [place] [employer] Driver [address] [place] [address] Laura Machado MA Protime-INR Social History [...] on file Legal Sex Female 2:53 PM CASH PROCESSOR Gender Identity Female 08/19/2020 7:43 PM CDT Sexual Orientation Straight 09/24/2020 8: 49 AM CDT 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 file Not on file documented as of this encounter Plan of Treatment Not on file documented as of this encounter Visit Diagnoses Not on filedocumented in this encounter Care Teams Moid [employer] Teacher Relationship Specialty Start Date End Date Karolyn Evans NP [address] [facility] [address] [place] [address] [place] [address] PCP - General Family Medicine 11/23/24 01/16/25 Meir Ibrahim MD [address] [facility] [address] [place] [address] [place] [address] PCP - General Internal Medicine 01/17/25 Roxanne Werner MD [address] [place] [address] Consulting Physician Cardiology 07/31/21 Ata Bronson DPM [address] [place] [address] Consulting Physician Foot and Ankle Surg 07/31/21 documented as of this encounter
--- OUTSIDE RECORDS SUMMARY | 2025-03-01 06:57 | XMS_ITS | Encounter Summary ---
Author Organization [facility] Address [address] [place] [address] Care Team Providers Care Accounting Support Specialist Name Role Phone Perry Smith MD Primary Care Provider [phone] Encounter Details Date Type Department Care Team (Latest Contact Info) Description 11/03/2007 Outpatient Historical [facility] Carie Ken MD [address] [facility] [address] [place] [address] Other Screening Mammogram Social History Tobacco Use Types Packs/Day Years Used Date Smoking Tobacco: Never Assessed Comments Unknown Sex and Gender Information Value Date Recorded Sex Assigned at Not on file Legal Sex Female 4:52 AM IRRIGATION LABORER Gender Identity Not on file Sexual Orientation [...] AM CDT Narrative 11/08/2007 9:24 AM CDT [facility] [address] [place], [place] [address] Admit Date: 11/03/2007 ARABELLA MENDEZ Sex: F Admit Prov: CARIE KEN Date: 1950 Primary Care Prov: PERRY SMITH CMRN: [id number] [facility] [address] [place] [address] IMAGING SERVICES Ordering Prov: CARIE KEN Accession Number: [id number] Interpretation BILATERAL FULL FIELD DIGITAL SCREENING MAMMOGRAM [...] Procedure Note Francisco J Rao - 11/08/2007 [facility] [address] [place], [place] [address] Admit Date: 11/03/2007 MARILYNN ARABELLA R Sex: F Admit Prov: CARIE KEN Date: 1950 Primary Care Prov: PERRY SMITH CMRN: [id number] [facility] [address] [place] [address] IMAGING SERVICES Ordering Prov: CARIE KEN Interpretation [...] R/O COVID-19 05/17/2020 05/20/2020 05/20/2020 3:21 PM IRRIGATION LABORER documented as of this encounter Care Teams Accounting Support Specialist Relationship Specialty Start Date End Date Perry Smith MD 300 [facility] [address] [place] [address] PCP - General 04/28/01 10/23/20 documented as of this encounter
--- OUTSIDE RECORDS SUMMARY | 2025-03-01 06:57 | XMS_ITS | Encounter Summary ---
Author Organization [employer] Address [address] [place] [address] Care Team Providers Care Profile Grinder Technician Name Role Phone Michael Smith MD Primary Care Provider [phone] Encounter Details Date Type Department Care Team (Late st Contact Info) Description 11/17/2004 Outpatient Historical [facility] Support Serv. (Adt Cardiology-[facility]) [address] [place] [address] Jerman Burrell MD [address] [facility] [address] [place], [place] [phone] Social History Tobacco Use Types Packs/Day Years Used Date Smoking Tobacco: Never Assessed Comments Unknown Sex and Gender Information Value Date Recorded Sex Assigned at Not on file Legal Sex Female 4:52 AM LANDSCAPE MANAGER Gender Identity Not on file Sexual Orientation Not on file documented as of this encounter Plan of Treatment Not on file documented as of this encounter Visit Diagnoses Not on filedocumented in this encounter Additional Health Concerns Infection Onset Date Last Indicated Resolved Time R/O COVID-19 05/17/2020 05/20/2020 05/20/2020 3:21 PM LANDSCAPE MANAGER documented as of this encounter Care Teams Profile Grinder Technician Relationship Specialty Start Date End Date Michael Smith MD [address] [facility] [address] [place] [address] PCP - General 04/28/01 10/23/20 documented as of this encounter
--- OUTSIDE RECORDS SUMMARY | 2025-03-01 06:57 | XMS_ITS | Encounter Summary ---
Author Organization [employer] Address [address] [place] [address] Care Team Providers Care Complaint Investigations Officer Name Role Phone Michael Smith MD Primary Care Provider Encounter Details Date Type Department Care Team (Late st Contact Info) Description 01/26/2001 Outpatient Historical [facility] Michael Torres MD [address] [place] [address] Social History Tobacco Use Types Packs/Day Years Used Date Smoking Tobacco: Never Assessed Comments Unknown Sex and Gender Information Value Date Recorded Sex Assigned at Not on file Legal Sex Female 4:52 AM CENTRAL SUPPLY TECH Gender Identity Not on file Sexual Orientation Not on file documented as of this encounter Plan of Treatment Not on file documented as of this encounter Visit Diagnoses Not on filedocumented in this encounter Additional Health Concerns Infection Onset Date Last Indicated Resolved Time R/O COVID-19 05/17/2020 05/20/2020 05/20/2020 3:21 PM CENTRAL SUPPLY TECH documented as of this encounter Care Teams Complaint Investigations Officer Relationship Specialty Start Date End Date Michael Smith MD [address] [place] [address] PCP - General 04/28/01 10/23/20 documented as of this encounter
--- OUTSIDE RECORDS SUMMARY | 2025-03-01 06:57 | XMS_ITS | Encounter Summary ---
Author Organization [facility] Address [address] [place] [address] Care Team Providers Care Weather Strip Mechanic Name Role Phone Michael Smith MD Primary Care Provider [phone] Encounter Details Date Type Department Care Team (Late st Contact Info) Description 10/05/2007 Outpatient Historical [facility] Internal Medicine [address] [place] [address] Michael Smith MD [address] [place] [address] Social History Tobacco Use Types Packs/Day Years Used Date Smoking Tobacco: Never Assessed Comments Unknown Sex and Gender Information Value Date Recorded Sex Assigned at Not on file Legal Sex Female 4:52 AM RADIOTELEGRAPH OPERATOR Gender Identity Not on file Sexual Orientation Not on file documented as of this encounter Plan of Treatment Not on file documented as of this encounter Visit Diagnoses Not on filedocumented in this encounter Additional Health Concerns Infection Onset Date Last Indicated Resolved Time R/O COVID-19 05/17/2020 05/20/2020 05/20/2020 3:21 PM RADIOTELEGRAPH OPERATOR documented as of this encounter Care Teams Weather Strip Mechanic Relationship Specialty Start Date End Date Michael Smith MD [address] [place] [address] PCP - General 04/28/01 10/23/20 documented as of this encounter
--- OUTSIDE RECORDS SUMMARY | 2025-03-01 06:57 | XMS_ITS | Encounter Summary ---
Author Organization [facility] Address [address] [place] [address] Care Team Providers Care Gas Engineer Name Role Phone Perry Smith MD Primary Care Provider [phone] Encounter Details Date Type Department Care Team (Late st Contact Info) Description 09/12/2007 Outpatient Historical [facility] Perry Smith MD [address] [facility] [address] [place] [address] Headache Social History Tobacco Use Types Packs/Day Years Used Date Smoking Tobacco: Never Assessed Comments Unknown Sex and Gender Information Value Date Recorded Sex Assigned at Not on file Legal Sex Female 4:52 AM TOP LIFT COMPRESSOR Gender Identity Not on file Sexual Orientation [...] PM CDT Narrative 09/13/2007 8:26 AM CDT [facility] [address] [place], [place] [address] Admit Date: 09/12/2007 ARABELLA MENDEZ Sex: F Admit Prov: PERRY SMITH Date: 1950 Primary Care Prov: PERRY SMITH CMRN: [id number] [id number] Ordering Prov: N/A Accession Number: [id number] Interpretation MRI ANGIO HEAD WITHOUT CONTRAST 09/12/2007 Indication: Five family members with brain aneurysms. Technique: [id number] MRA sequence was performed as well as [...] SJ Procedure Note Nathan Mcgee - 09/13/[address] [address] Admit Date: 09/12/2007 ARABELLA MENDEZ Sex: F Admit Prov: PERRY SMITH Date: 1950 Primary Care Prov: PERRY SMITH CMRN: [id number] Room: [facility] SSN: [id number] IMAGING SERVICES Ordering Prov: N/A Interpretation MRI ANGIO HEAD WITHOUT CONTRAST 09/12/2007 Indication: Five family members with brain aneurysms. Technique: [id number] MRA sequence was performed as well assagittal [...] R/O COVID-19 05/17/2020 05/20/2020 05/20/2020 3:21 PM TOP LIFT COMPRESSOR documented as of this encounter Care Teams Gas Engineer Relationship Specialty Start Date End Date Perry Smith MD [address] [facility] [address] [place] [address] PCP - General 04/28/01 10/23/20 documented as of this encounter
--- OUTSIDE RECORDS SUMMARY | 2025-03-01 06:57 | XMS_ITS | Encounter Summary ---
Author Organization [facility] Address [address] [place] [address] Care Team Providers Care Legal Officer Name Role Phone Michael Smith MD Primary Care Provider [phone] Encounter Details Date Type Department Care Team (Late st Contact Info) Description 04/13/2007 Outpatient Historical [facility] Internal Medicine [address] [place] [address] Michael Smith MD [address] [place] [address] Social History Tobacco Use Types Packs/Day Years Used Date Smoking Tobacco: Never Assessed Comments Unknown Sex and Gender Information Value Date Recorded Sex Assigned at Not on file Legal Sex Female 4:52 AM VITICULTURIST Gender Identity Not on file Sexual Orientation Not on file documented as of this encounter Plan of Treatment Not on file documented as of this encounter Visit Diagnoses Not on filedocumented in this encounter Additional Health Concerns Infection Onset Date Last Indicated Resolved Time R/O COVID-19 05/17/2020 05/20/2020 05/20/2020 3:21 PM VITICULTURIST documented as of this encounter Care Teams Legal Officer Relationship Specialty Start Date End Date Michael Smith MD [address] [place] [address] PCP - General 04/28/01 10/23/20 documented as of this encounter
--- OUTSIDE RECORDS SUMMARY | 2025-03-01 06:57 | XMS_ITS | Encounter Summary ---
Author Organization [facility] Address [address] [place] [address] Care Team Providers Care Facility Sales And Admin Name Role Phone Michael Smith MD Primary Care Provider [phone] Encounter Details Date Type Department Care Team (Late st Contact Info) Description 10/22/2003 Outpatient Historical [facility] Internal Medicine [address] [place] [address] Michael mSith MD [address] [place] [address] Social History Tobacco Use Types Packs/Day Years Used Date Smoking Tobacco: Never Assessed Comments Unknown Sex and Gender Information Value Date Recorded Sex Assigned at Not on file Legal Sex Female 4:52 AM MANAGER CARGO Gender Identity Not on file Sexual Orientation Not on file documented as of this encounter Plan of Treatment Not on file documented as of this encounter Visit Diagnoses Not on filedocumented in this encounter Additional Health Concerns Infection Onset Date Last Indicated Resolved Time R/O COVID-19 05/17/2020 05/20/2020 05/20/2020 3:21 PM MANAGER CARGO documented as of this encounter Care Teams Facility Sales And Admin Relationship Specialty Start Date End Date Michael Smith MD [address] [place] [address] PCP - General 04/28/01 10/23/20 documented as of this encounter
--- OUTSIDE RECORDS SUMMARY | 2025-03-01 06:57 | XMS_ITS | Encounter Summary ---
Author Organization [facility] Address [address] [place] [address] Care Team Providers Care Conversion Worker Name Role Phone Michael Smith MD Primary Care Provider [phone] Encounter Details Date Type Department Care Team (Latest Contact Info) Description 10/22/2003 Outpatient Historical [facility] Jonel Vásquez MD [address] [facility] [address] [place] [address] SCREENING MAMM-MAILG NEOPL-OTHER (Primary Dx) Social History Tobacco Use Types Packs/Day Years Used Date Smoking Tobacco: Never Assessed Comments Unknown Sex and Gender Information Value Date Recorded Sex Assigned at Not on file Legal Sex Female 4:52 AM ELECTRONICS TEST ENGINEER Gender Identity Not on file Sexual Orientation Not on file documented as of this encounter Plan of Treatment Not on file documented as of this encounter Visit Diagnoses Diagnosis Other screening mammogram- Primary documented in this encounter Additional Health Concerns Infection Onset Date Last Indicated Resolved Time R/O COVID-19 05/17/2020 05/20/2020 05/20/2020 3:21 PM ELECTRONICS TEST ENGINEER documented as of this encounter Care Teams Conversion Worker Relationship Specialty Start Date End Date Michael Smith MD [address] [facility] [address] [place] [address] PCP - General 04/28/01 10/23/20 documented as of this encounter
--- OUTSIDE RECORDS SUMMARY | 2025-03-01 06:57 | XMS_ITS | Encounter Summary ---
Author Organization [facility] Address [address] [place] [address] Care Team Providers Care Generation Technician Name Role Phone Michael Smith MD Primary Care Provider [phone] Encounter Details Date Type Department Care Team (Late st Contact Info) Description 11/28/2004 Outpatient Historical [facility] Internal Medicine [address] [place] [address] Michael Smith MD [address] [place] [address] Social History Tobacco Use Types Packs/Day Years Used Date Smoking Tobacco: Never Assessed Comments Unknown Sex and Gender Information Value Date Recorded Sex Assigned at Not on file Legal Sex Female 4:52 AM SUBMARINE OPERATOR Gender Identity Not on file Sexual Orientation Not on file documented as of this encounter Plan of Treatment Not on file documented as of this encounter Visit Diagnoses Not on filedocumented in this encounter Additional Health Concerns Infection Onset Date Last Indicated Resolved Time R/O COVID-19 05/17/2020 05/20/2020 05/20/2020 3:21 PM SUBMARINE OPERATOR documented as of this encounter Care Teams Generation Technician Relationship Specialty Start Date End Date Michael Smiht MD [address] [place] [address] PCP - General 04/28/01 10/23/20 documented as of this encounter
--- OUTSIDE RECORDS SUMMARY | 2025-03-01 06:57 | XMS_ITS | Encounter Summary ---
Author Organization [facility] Address [address] [place] [address] Care Team Providers Care Panel Machine Operator Name Role Phone Michael Smith MD Primary Care Provider [phone] Encounter Details Date Type Department Care Team (Late st Contact Info) Description 04/11/2007 Orders Only [facility] Internal Medicine [address] [place] [address] Michael Smith MD [address] [facility] [address] [place] [address] Social History Tobacco Use Types Packs/Day Years Used Date Smoking Tobacco: Never Assessed Comments Unknown Sex and Gender Information Value Date Recorded Sex Assigned at Not on file Legal Sex Female 4:52 AM LEAD NETWORK ARCHITECT Gender Identity Not on file Sexual [...] with her activity level. CURRENT MEDICATION LIST: [id number] ORAL TABLET 50-325-40 MG, Take one tablet [...] and adenoids. PHYSICAL EXAMINATION: CONSTITUTIONAL: GENERAL APPEARANCE: -[place] female, normal body habitus. NECK/THYROID: TOTAL THYROIDECTOMY. [...] SPECIALTY REFERRAL: PODIATRY Dr. Ata Reeder: ph: [phone] fax: [phone] [place]: ph: [phone] fax: [phone] [place]: ph: [phone] fax: [phone].Sent to [facility]. [facility]. Electronically Signed by: Michael Smith MD on Friday, May 11, 2007 documented in this encounter Plan of Treatment Not on file documented as of this encounter Visit Diagnoses Not on filedocumented in this encounter Additional Health Concerns Infection Onset Date Last Indicated Resolved Time R/O COVID-19 05/17/2020 05/20/2020 05/20/2020 3:21 PM LEAD NETWORK ARCHITECT documented as of this encounter Care Teams Panel Machine Operator Relationship Specialty Start Date End Date Michael Smith MD [address] [place] [address] PCP - General 04/28/01 10/23/20 documented as of this encounter
--- OUTSIDE RECORDS SUMMARY | 2025-03-01 06:57 | XMS_ITS | Encounter Summary ---
Author Organization [facility] Address [address] [place] [address] Care Team Providers Care Tank Driver Name Role Phone Michael Smith MD Primary Care Provider [phone] Encounter Details Date Type Department Care Team (Late st Contact Info) Description 02/19/2004 Outpatient Historical [facility] Internal Medicine [address] [place] [address] Michael Smith MD [address] [place] [address] Social History Tobacco Use Types Packs/Day Years Used Date Smoking Tobacco: Never Assessed Comments Unknown Sex and Gender Information Value Date Recorded Sex Assigned at Not on file Legal Sex Female 4:52 AM SOLDERING MACHINE OPERATOR Gender Identity Not on file Sexual Orientation Not on file documented as of this encounter Plan of Treatment Not on file documented as of this encounter Visit Diagnoses Not on filedocumented in this encounter Additional Health Concerns Infection Onset Date Last Indicated Resolved Time R/O COVID-19 05/17/2020 05/20/2020 05/20/2020 3:21 PM SOLDERING MACHINE OPERATOR documented as of this encounter Care Teams Tank Driver Relationship Specialty Start Date End Date Michael Smith MD [address] [place] [address] PCP - General 04/28/01 10/23/20 documented as of this encounter
--- OUTSIDE RECORDS SUMMARY | 2025-03-01 06:57 | XMS_ITS | Encounter Summary ---
Author Organization [facility] Address [address] [place] [address] Care Team Providers Care Entertainment Production Professional Name Role Phone Roxanne Werner MD Unavailable Ata Bronson DPM Unavailable Meir Ibrahim MD Primary Care Provider [phone] Encounter Details Date Type Department Care Team (Late st Contact Info) Description 02/14/2025 Results Follow-Up [employer] Technician [address] [address] Roxanne Werner MD [address] [place] [address] Protime-INR, Basic metabolic panel, eGFR Social History [...] on file Legal Sex Female 2:53 PM HEAD GAUGE UNIT OPERATOR Gender Identity Female 08/19/2020 7:43 PM CDT Sexual Orientation Straight 09/24/2020 8: 49 AM CDT 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
--- OUTSIDE RECORDS SUMMARY | 2025-03-01 06:57 | XMS_ITS | Encounter Summary ---
Author Organization [facility] Address [address] [place] [address] Care Team Providers Care Die Sinker Name Role Phone Michael Smith MD Primary Care Provider [phone] Encounter Details Date Type Department Care Team (Late st Contact Info) Description 10/06/2007 Orders Only [facility] Internal Medicine [address] [place] [address] Michael Smith MD [address] [place] [address] Social History Tobacco Use Types Packs/Day Years Used Date Smoking Tobacco: Never Assessed Comments Unknown Sex and Gender Information Value Date Recorded Sex Assigned at Not on file Legal Sex Female 4:52 AM FAMILY MEMBER CARETAKER Gender Identity Not on file Sexual Orientation Not on file documented as of this encounter Plan of Treatment Not on file documented as of this encounter Visit Diagnoses Not on filedocumented in this encounter Additional Health Concerns Infection Onset Date Last Indicated Resolved Time R/O COVID-19 05/17/2020 05/20/2020 05/20/2020 3:21 PM FAMILY MEMBER CARETAKER documented as of this encounter Care Teams Die Sinker Relationship Specialty Start Date End Date Michael Smith MD [address] [place] [address] PCP - General 04/28/01 10/23/20 documented as of this encounter
--- OUTSIDE RECORDS SUMMARY | 2025-03-01 06:57 | XMS_ITS | Encounter Summary ---
Author Organization [facility] Address [address] [place] [address] Care Team Providers Care Rate Examiner Name Role Phone Michael Smith MD Primary Care Provider Encounter Details Date Type Department Care Team (Late st Contact Info) Description 11/18/2004 Outpatient Historical [facility] Lebron Farr MD [address] [place] [address] BENIGN NEOPLASM LG BOWEL (Primary Dx) Social History Tobacco Use Types Packs/Day Years Used Date Smoking Tobacco: Never Assessed Comments Unknown Sex and Gender Information Value Date Recorded Sex Assigned at Not on file Legal Sex Female 4:52 AM SPORTS EQUIPMENT REPAIRER Gender Identity Not on file Sexual Orientation Not on file documented as of this encounter Plan of Treatment Not on file documented as of this encounter Visit Diagnoses Diagnosis Benign neoplasm of colon- Primary documented in this encounter Additional Health Concerns Infection Onset Date Last Indicated Resolved Time R/O COVID-19 05/17/2020 05/20/2020 05/20/2020 3:21 PM SPORTS EQUIPMENT REPAIRER documented as of this encounter Care Teams Rate Examiner Relationship Specialty Start Date End Date Michael Smith MD [address] [facility] [address] [place] [address] PCP - General 04/28/01 10/23/20 documented as of this encounter
--- OUTSIDE RECORDS SUMMARY | 2025-03-01 06:57 | XMS_ITS | Encounter Summary ---
Author Organization [facility] Address [address] [place] [address] Care Team Providers Care Crib Tender Name Role Phone Michael Smith MD Primary Care Provider [phone] Encounter Details Date Type Department Care Team (Late st Contact Info) Description 03/12/2006 Orders Only [facility] Internal Medicine [address] [place] [address] Michael Smith MD [address] [facility] [address] [place] [address] Social History Tobacco Use Types Packs/Day Years Used Date Smoking Tobacco: Never Assessed Comments Unknown Sex and Gender Information Value Date Recorded Sex Assigned at Not on file Legal Sex Female 4:52 AM COORDINATOR OF ONLINE PROGRAMS Gender Identity Not on file Sexual Orientation Not on file documented as of this encounter Progress Notes * iMchael Smith MD - 02/21/2008 10:41 PM CDT NURSE NAME: Sugey Ortega * Michael Smith MD - 02/21/2008 10:41 PM CDT TIME:11:30 am PATIENT`S HOME PHONE: PATIENT`S WORK PHONE: PATIENT`S INSURANCE: [employer] WHO TOOK THE CALL: Sugey Ortega [...] DISCONTINUED, 03/12/2006, Comment: faxed to [facility] @ [phone] on 11/12/05/rll. LEVOXYL ORAL TABLET 112 MCG, Take one tab po every day, 30 Dispensed, 5 Fills, status: NEW PRESCRIPTION, 03/12/2006. 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 LAB ORDERS: Order number: [id number] Test Ordered: TSH 899 SECTION 3: RN/DIRECTOR OF PSYCHIATRY RESPONSE: pav03/12/06 at 11:37 am Call to patient regarding lab results:which show cholesterol 225,hww732,hdl 68 ok.Glucose is normal,kidney and liver normal,no [...] R/O COVID-19 05/17/2020 05/20/2020 05/20/2020 3:21 PM COORDINATOR OF ONLINE PROGRAMS documented as of this encounter Care Teams Crib Tender Relationship Specialty Start Date End Date Michael Smith MD [address] [facility] [address] [place] [address] PCP - General 04/28/01 10/23/20 documented as of this encounter
--- OUTSIDE RECORDS SUMMARY | 2025-03-01 06:57 | XMS_ITS | Encounter Summary ---
Author Organization [facility] Address [address] [place] [address] Care Team Providers Care Associate Business Analyst Name Role Phone Michael Smith MD Primary Care Provider [phone] Encounter Details Date Type Department Care Team (Late st Contact Info) Description 11/29/2006 Orders Only [facility] Internal Medicine [address] [place] [address] Michael Smith MD [address] [place] [address] Social History Tobacco Use Types Packs/Day Years Used Date Smoking Tobacco: Never Assessed Comments Unknown Sex and Gender Information Value Date Recorded Sex Assigned at Not on file Legal Sex Female 4:52 AM TRANSFER STATION OPERATOR Gender Identity Not on file Sexual Orientation Not on file documented as of this encounter Plan of Treatment Not on file documented as of this encounter Visit Diagnoses Not on filedocumented in this encounter Additional Health Concerns Infection Onset Date Last Indicated Resolved Time R/O COVID-19 05/17/2020 05/20/2020 05/20/2020 3:21 PM TRANSFER STATION OPERATOR documented as of this encounter Care Teams Associate Business Analyst Relationship Specialty Start Date End Date Michael Smith MD [address] [place] [address] PCP - General 04/28/01 10/23/20 documented as of this encounter
--- OUTSIDE RECORDS SUMMARY | 2025-03-01 06:57 | XMS_ITS | Encounter Summary ---
Author Organization [facility] Address [address] [place] [address] Care Team Providers Care Ship Rigger Name Role Phone Michael Smith MD Primary Care Provider [phone] Encounter Details Date Type Department Care Team (Late st Contact Info) Description 03/07/2004 Outpatient Historical [facility] Internal Medicine [address] [place] [address] Michael Smith MD [address] [place] [address] Social History Tobacco Use Types Packs/Day Years Used Date Smoking Tobacco: Never Assessed Comments Unknown Sex and Gender Information Value Date Recorded Sex Assigned at Not on file Legal Sex Female 4:52 AM LIBRARY CONSULTANT Gender Identity Not on file Sexual Orientation Not on file documented as of this encounter Plan of Treatment Not on file documented as of this encounter Visit Diagnoses Not on filedocumented in this encounter Additional Health Concerns Infection Onset Date Last Indicated Resolved Time R/O COVID-19 05/17/2020 05/20/2020 05/20/2020 3:21 PM LIBRARY CONSULTANT documented as of this encounter Care Teams Ship Rigger Relationship Specialty Start Date End Date Michael Smith MD [address] [place] [address] PCP - General 04/28/01 10/23/20 documented as of this encounter
--- OUTSIDE RECORDS SUMMARY | 2025-03-01 06:57 | XMS_ITS | Encounter Summary ---
Author Organization [facility] Address [address] [place] [address] Care Team Providers Care Magnetic Healer Name Role Phone Michael Smith MD Primary Care Provider [phone] Encounter Details Date Type Department Care Team (Late st Contact Info) Description 09/27/2006 Orders Only [facility] Internal Medicine [address] [place] [address] Michael Smith MD [address] [place] [address] Social History Tobacco Use Types Packs/Day Years Used Date Smoking Tobacco: Never Assessed Comments Unknown Sex and Gender Information Value Date Recorded Sex Assigned at Not on file Legal Sex Female 4:52 AM CATERING DRIVER Gender Identity Not on file Sexual Orientation Not on file documented as of this encounter Plan of Treatment Not on file documented as of this encounter Visit Diagnoses Not on filedocumented in this encounter Additional Health Concerns Infection Onset Date Last Indicated Resolved Time R/O COVID-19 05/17/2020 05/20/2020 05/20/2020 3:21 PM CATERING DRIVER documented as of this encounter Care Teams Magnetic Healer Relationship Specialty Start Date End Date Michael Smith MD [address] [place] [address] PCP - General 04/28/01 10/23/20 documented as of this encounter
--- OUTSIDE RECORDS SUMMARY | 2025-03-01 06:57 | XMS_ITS | Encounter Summary ---
Author Organization [facility] Address [address] [place] [address] Care Team Providers Care Toy Assembly Supervisor Name Role Phone Michael Smith MD Primary Care Provider [phone] Encounter Details Date Type Department Care Team (Late st Contact Info) Description 04/11/2007 Outpatient Historical [facility] Internal Medicine [address] [place] [address] Michael Smith MD [address] [facility] [address] [place] [address] Social History Tobacco Use Types Packs/Day Years Used Date Smoking Tobacco: Never Assessed Comments Unknown Sex and Gender Information Value Date Recorded Sex Assigned at Not on file Legal Sex Female 4:52 AM PRIVATE DETECTIVE Gender Identity Not on file Sexual Orientation Not on file documented as of this encounter Last Filed Vital Signs Vital Sign Reading Time Taken Comments Blood Pressure 150/92 04/11/2007 10:45 AM PRIVATE DETECTIVE Pulse 55 04/11/2007 10:45 AM PRIVATE DETECTIVE Temperature - - Respiratory Rate - - Oxygen Saturation - - Inhaled Oxygen Concentration - - Weight 85.3 kg (188 lb) 04/11/2007 10:45 AM PRIVATE DETECTIVE Height - - Body Mass Index - - documented in this encounter Plan of Treatment Not on file documented as of this encounter Visit Diagnoses Not on filedocumented in this encounter Additional Health Concerns Infection Onset Date Last Indicated Resolved Time R/O COVID-19 05/17/2020 05/20/2020 05/20/2020 3:21 PM PRIVATE DETECTIVE documented as of this encounter Care Teams Toy Assembly Supervisor Relationship Specialty Start Date End Date Michael Smith MD [address] [facility] [address] [place] [address] PCP - General 04/28/01 10/23/20 documented as of this encounter
--- OUTSIDE RECORDS SUMMARY | 2025-03-01 06:57 | XMS_ITS | Encounter Summary ---
Author Organization [facility] Address [address] [facility] [place] [address] Care Team Providers Care Crop Specialist Name Role Phone Michael Smith MD Primary Care Provider [phone] Encounter Details Date Type Department Care Team (Late st Contact Info) Description 04/28/2001 Outpatient Historical [facility] Lebron Farr MD [address] [place] [phone] BENIGN NEOPLASM LG BOWEL (Primary Dx) Social History Tobacco Use Types Packs/Day Years Used Date Smoking Tobacco: Never Assessed Comments Unknown Sex and Gender Information Value Date Recorded Sex Assigned at Not on file Legal Sex Female 4:52 AM IUSS ACOUSTIC ANALYST Gender Identity Not on file Sexual Orientation Not on file documented as of this encounter Plan of Treatment Not on file documented as of this encounter Visit Diagnoses Diagnosis Benign neoplasm of colon- Primary documented in this encounter Additional Health Concerns Infection Onset Date Last Indicated Resolved Time R/O COVID-19 05/17/2020 05/20/2020 05/20/2020 3:21 PM IUSS ACOUSTIC ANALYST documented as of this encounter Care Teams Crop Specialist Relationship Specialty Start Date End Date Michael Smith MD [address] [facility] [address] [place] [address] PCP - General 04/28/01 10/23/20 documented as of this encounter
--- OUTSIDE RECORDS SUMMARY | 2025-03-01 06:57 | XMS_ITS | Encounter Summary ---
Author Organization [facility] Address [address] [place] [address] Care Team Providers Care Staple Processing Machine Operator Name Role Phone Michael Smith MD Primary Care Provider [phone] Encounter Details Date Type Department Care Team (Late st Contact Info) Description 02/22/2004 Outpatient Historical [facility] Internal Medicine [address] [place] [address] Michael Smith MD [address] [place] [address] Social History Tobacco Use Types Packs/Day Years Used Date Smoking Tobacco: Never Assessed Comments Unknown Sex and Gender Information Value Date Recorded Sex Assigned at Not on file Legal Sex Female 4:52 AM APPLICATION SYSTEMS ARCHITECT Gender Identity Not on file Sexual Orientation Not on file documented as of this encounter Plan of Treatment Not on file documented as of this encounter Visit Diagnoses Not on filedocumented in this encounter Additional Health Concerns Infection Onset Date Last Indicated Resolved Time R/O COVID-19 05/17/2020 05/20/2020 05/20/2020 3:21 PM APPLICATION SYSTEMS ARCHITECT documented as of this encounter Care Teams Staple Processing Machine Operator Relationship Specialty Start Date End Date Michael Smith MD [address] [place] [address] PCP - General 04/28/01 10/23/20 documented as of this encounter
--- OUTSIDE RECORDS SUMMARY | 2025-03-01 06:57 | XMS_ITS | Encounter Summary ---
Author Organization [facility] Address [address] [place] [address] Care Team Providers Care Patient Sitter Name Role Phone Michael Smith MD Primary Care Provider [phone] Encounter Details Date Type Department Care Team (Late st Contact Info) Description 10/07/2004 Outpatient Historical [facility] Internal Medicine [address] [place] [address] Michael Smith MD [address] [place] [address] Social History Tobacco Use Types Packs/Day Years Used Date Smoking Tobacco: Never Assessed Comments Unknown Sex and Gender Information Value Date Recorded Sex Assigned at Not on file Legal Sex Female 4:52 AM DIVISION LEADER Gender Identity Not on file Sexual Orientation Not on file documented as of this encounter Plan of Treatment Not on file documented as of this encounter Visit Diagnoses Not on filedocumented in this encounter Additional Health Concerns Infection Onset Date Last Indicated Resolved Time R/O COVID-19 05/17/2020 05/20/2020 05/20/2020 3:21 PM DIVISION LEADER documented as of this encounter Care Teams Patient Sitter Relationship Specialty Start Date End Date Michael Smith MD [address] [place] [address] PCP - General 04/28/01 10/23/20 documented as of this encounter
--- OUTSIDE RECORDS SUMMARY | 2025-03-01 06:57 | XMS_ITS | Encounter Summary ---
Author Organization [facility] Address [address] [place] [address] Care Team Providers Care Reversing Mill Roller Name Role Phone Michael Smith MD Primary Care Provider [phone] Encounter Details Date Type Department Care Team (Latest Contact Info) Description 11/17/2004 Outpatient Historical [facility] Michael Smith MD [address] [place] [phone] CARDIOMEGALY (Primary Dx) Social History Tobacco Use Types Packs/Day Years Used Date Smoking Tobacco: Never Assessed Comments Unknown Sex and Gender Information Value Date Recorded Sex Assigned at Not on file Legal Sex Female 4:52 AM SERVICE CENTER ASSISTANT Gender Identity Not on file Sexual Orientation Not on file documented as of this encounter Plan of Treatment Not on file documented as of this encounter Visit Diagnoses Diagnosis Cardiomegaly- Primary documented in this encounter Additional Health Concerns Infection Onset Date Last Indicated Resolved Time R/O COVID-19 05/17/2020 05/20/2020 05/20/2020 3:21 PM SERVICE CENTER ASSISTANT documented as of this encounter Care Teams Reversing Mill Roller Relationship Specialty Start Date End Date Michael Smith MD [address] [place] [address] PCP - General 04/28/01 10/23/20 documented as of this encounter
--- OUTSIDE RECORDS SUMMARY | 2025-03-01 06:57 | XMS_ITS | Encounter Summary ---
Author Organization [facility] Address [address] [place] [address] Care Team Providers Care Stocklayer Name Role Phone Michael Smith MD Primary Care Provider [phone] Encounter Details Date Type Department Care Team (Latest Contact Info) Description 05/13/2006 Outpatient Historical [facility] Jonel Mulligan MD [address] [facility] [address] [place] [address] Abnormal Mammogram, Unspecified (Primary Dx) Social History Tobacco Use Types Packs/Day Years Used Date Smoking Tobacco: Never Assessed Comments Unknown Sex and Gender Information Value Date Recorded Sex Assigned at Not on file Legal Sex Female 4:52 AM AUDIT PRACTICE INTERN Gender Identity Not on file Sexual Orientation Not on file documented as of this encounter Plan of Treatment Not on file documented as of this encounter Visit Diagnoses Diagnosis Abnormal mammogram, unspecified- Primary documented in this encounter Additional Health Concerns Infection Onset Date Last Indicated Resolved Time R/O COVID-19 05/17/2020 05/20/2020 05/20/2020 3:21 PM AUDIT PRACTICE INTERN documented as of this encounter Care Teams Stocklayer Relationship Specialty Start Date End Date Michael Smith MD [address] [facility] [address] [place] [address] PCP - General 04/28/01 10/23/20 documented as of this encounter
--- OUTSIDE RECORDS SUMMARY | 2025-03-01 06:57 | XMS_ITS | Encounter Summary ---
Author Organization [facility] Address [address] [place] [address] Care Team Providers Care Bread Pan Greaser Name Role Phone Michael Smith MD Primary Care Provider [phone] Encounter Details Date Type Department Care Team (Latest Contact Info) Description 03/17/2004 Outpatient Historical [facility] Michael Smith MD [address] [place] [phone] ABN INVOLUN MOVEMENT NEC (Primary Dx) Social History Tobacco Use Types Packs/Day Years Used Date Smoking Tobacco: Never Assessed Comments Unknown Sex and Gender Information Value Date Recorded Sex Assigned at Not on file Legal Sex Female 4:52 AM PROFESSOR OF VIOLIN Gender Identity Not on file Sexual Orientation Not on file documented as of this encounter Plan of Treatment Not on file documented as of this encounter Visit Diagnoses Diagnosis Abnormal involuntary movements(781.0)- Primary Abnormal involuntary movements documented in this encounter Additional Health Concerns Infection Onset Date Last Indicated Resolved Time R/O COVID-19 05/17/2020 05/20/2020 05/20/2020 3:21 PM PROFESSOR OF VIOLIN documented as of this encounter Care Teams Bread Pan Greaser Relationship Specialty Start Date End Date Michael Smith MD [address] [place] [phone] PCP - General 04/28/01 10/23/20 documented as of this encounter
--- OUTSIDE RECORDS SUMMARY | 2025-03-01 06:57 | XMS_ITS | Clinical Summary ---
Author Organization [facility] Address [address] [place] [address] Care Team Providers Care Tractor Trailer Truck Driver Name Role Phone Unavailable Primary Care Provider [...] Need for prophylactic vaccin ation with combined [id number] (DTP) vaccine 03/08/2006 12/17/2007 Benign neoplasm of [...] on file Legal Sex Female 4:52 AM VIOLIN TEACHER Gender Identity Not on file Sexual Orientation Not on file Occupation Industry Job Start Date Job End Date Not on file Not on file Not on file Not on file Last Filed Vital Signs Vital Sign Reading Time Taken Comments Blood Pressure 128/84 06/29/2019 8:24 AM VIOLIN TEACHER Pulse 67 05/30/2019 1:31 PM VIOLIN TEACHER Temperature 36.9 C (98.5 F) 05/30/2019 1:16 PM VIOLIN TEACHER Respiratory Rate 18 05/30/2019 1:31 PM VIOLIN TEACHER Oxygen Saturation 95% 05/30/2019 1:31 PM VIOLIN TEACHER Inhaled Oxygen Concentration - - Weight 91.2 kg (201 lb) 06/29/2019 8:24 AM VIOLIN TEACHER Height 170.2 cm (5' 7) 06/29/2019 8:24 AM VIOLIN TEACHER Body Mass Index 31.48 06/29/2019 8:24 AM VIOLIN TEACHER Plan of Treatment Health Maintenance Due Date [...] , 05/21/2014 Medical Devices Implanted Type Area Curriculum And Assessment Coordinator Device Identifier Shelf Expiration Date Model / Serial / Lot Log [id number] - Bladder Slings And Tapes - 1 - Sling Desara System Rigoberto-Ds01 Implanted:Qty: 1 on 12/31/2009 at [facility] Sling N/A: Vagina [employer] 07/08/2014 RIGOBERTO-DS01 / / [id number] Description:vaginal apex Log [id number] - Bladder Slings And Tapes - 1 - Sling Desara System Rigoberto-Ds01 Implanted:Qty: 1 on 12/31/2009 at [facility] Sling N/A: Urethra [employer] 11/07/2012 RIGOBERTO-DS01 / / [id number] Description:mid urethra Procedures Procedure Name Priority Date/Time Associated Diagnosis Comments COLONOSCOPY REPORT 05/30/2019 1: 16 PM VIOLIN TEACHER XR DEXA BONE DENSITY AXIAL 1 OR MORE SITES Routine 06/11/2015 9:09 AM VIOLIN TEACHER Age-related osteoporosis without current pathological fracture from Last 3 Months or Most Recently Relevant to Health Maintenance Results * COLONOSCOPY REPORT (05/30/2019 1:16 PM VIOLIN TEACHER) Narrative Procedure Note John Prado MD - 05/30/2019 1:15 PM CST [facility] Endoscopy Patient Name: Arabella Hankins Procedure [...] of Addenda: [address]; [place] [address] John Prado MD GI PROCEDURE ORDERABLES Final Re sult * XR DEXA BONE DENSITY AXIAL 1 OR MORE SITES (06/11/2015 9:09 AM VIOLIN TEACHER) Anatomical Region Laterality Modality Digital Radiogra phy 06/11/2015 8:58 AM VIOLIN TEACHER Narrative 06/11/2015 11:50 AM VIOLIN TEACHER XR DEXA BONE DENSITY AXIAL 1 OR MORE SITES Dictated from Location 1 ([facility]) HISTORY 65 year-old F with post menopausal symptoms. PROCEDURE: Planar images of the lumbar spine and hip(s) using a Shoutly DEXA scanner for bone mineral density determination (BMD). Compared to the prior bone density performed 07/16/2008 FINDINGS: Lumbar Spine (L1-L4) 1.494 gm/cm2, T-score: +2.6 Prior: 1.421 gm/cm2, +5.1% change Left femoral neck 1.109 gm/cm2, T-score: +0.5 Prior: 1.164 gm/cm2, -4.7% change Right femoral neck 1.116 gm/cm2, T-score: +0.6 Prior: 1.196 gm/cm2, -6.7% change Comments: None. Detailed report placed in Imaging Section of [facility] EMR. IMPRESSION Normal BMD. Lumbar [...] OR MORE SITES Dictated from Location 1 ([facility]) HISTORY 65 year-old F with post menopausal symptoms. PROCEDURE: Planar images of the lumbar spine and hip(s) using a Shoutly DEXA scanner for bone mineral density determination (BMD). Compared to the prior bone density performed 07/16/2008 FINDINGS: Lumbar Spine (L1-L4) 1.494 gm/cm2, T-score: +2.6 Prior: 1.421 gm/cm2, +5.1% change Left femoral neck 1.109 gm/cm2, T-score: +0.5 Prior: 1.164 gm/cm2, -4.7% change Right femoral neck 1.116 gm/cm2, T-score: +0.6 Prior: 1.196 gm/cm2, -6.7% change Comments: None. Detailed report placed in Imaging Section of [facility] EMR. IMPRESSION Normal BMD. Lumbar [...] Advance Directives For more information, please contact: [phone] Documents on File Type Date Recorded Patient Subassembler Expl anation Advance Directive POA 12/31/2009 5:41 [...]
--- OUTSIDE RECORDS SUMMARY | 2025-03-01 06:57 | XMS_ITS | Encounter Summary ---
Author Organization [facility] [facility] Address [address] [place] [address] Care Team Providers Care Mac Artist Name Role Phone Michael Smith MD Primary Care Provider [phone] Encounter Details Date Type Department Care Team (Latest Contact Info) Description 11/02/2006 Outpatient Historical [facility] Jonel Vásquez MD [address] [facility] [address] [place] [address] Other Screening Mammogram (Primary Dx) Social History Tobacco Use Types Packs/Day Years Used Date Smoking Tobacco: Never Assessed Comments Unknown Sex and Gender Information Value Date Recorded Sex Assigned at Not on file Legal Sex Female 4:52 AM HOUSEKEEPING LEAD Gender Identity Not on file Sexual Orientation Not on file documented as of this encounter Plan of Treatment Not on file documented as of this encounter Visit Diagnoses Diagnosis Other screening mammogram- Primary documented in this encounter Additional Health Concerns Infection Onset Date Last Indicated Resolved Time R/O COVID-19 05/17/2020 05/20/2020 05/20/2020 3:21 PM HOUSEKEEPING LEAD documented as of this encounter Care Teams Mac Artist Relationship Specialty Start Date End Date Michael Smith MD [address] [facility] [address] [place] [address] PCP - General 04/28/01 10/23/20 documented as of this encounter
--- OUTSIDE RECORDS SUMMARY | 2025-03-01 06:57 | XMS_ITS | Clinical Summary ---
Author Organization [facility] Address [address] [place] [address] Care Team Providers Care Maintenance Shop Technician Name Role Phone Yesi Reddy MUSIC VIDEO DIRECTOR Primary Care Provider [phone] Allergies Active Allergy Reactions Criticality Noted Date Comments Sulfa Antibiotics Itching 03/08/2023 Medications apixaban (ELIQUIS) 5 MG tablet Take 5 mg by mouth in the morning and 5 mg in the evening. Active cholecalciferol (VITAMIN D-3) 1.25 MG (26998 UT) capsule Take 50,000 Units by mouth [...] Comments Pneumococcal Vaccine: 50+ Ye ars (1 of 1 - PCV) 02/02/1998 Influenza Vaccine (#1) 2025 Hepatitis B Vaccine Aged Out No longe r eligible based on patient's age to complete this topic Care Teams Maintenance Shop Technician Relationship Specialty Start Date End Date Yesi Reddy FNP [address] [place] [address] PCP - General Nurse Practitioner 05/13/23
--- OUTSIDE RECORDS SUMMARY | 2025-03-01 06:57 | XMS_ITS | Encounter Summary ---
Author Organization [facility] Address [address] [facility] Attn: Epic Prelude ADT [place]LESTE [place]ABA [address] Care Team Providers Care Motor Coach Tour Operator Name Role Phone Michael Smith MD Primary Care Provider Encounter Details Date Type Department Care Team (Late st Contact Info) Description 08/25/1993 Outpatient Historical Michael Smith MD [address] [place] [address] Social History Tobacco Use Types Packs/Day Years Used Date Smoking Tobacco: Never Assessed Comments Unknown Sex and Gender Information Value Date Recorded Sex Assigned at Not on file Legal Sex Female 4:52 AM CIRCULAR DISTRIBUTOR Gender Identity Not on file Sexual Orientation Not on file documented as of this encounter Plan of Treatment Not on file documented as of this encounter Visit Diagnoses Not on filedocumented in this encounter Additional Health Concerns Infection Onset Date Last Indicated Resolved Time R/O COVID-19 05/17/2020 05/20/2020 05/20/2020 3:21 PM CIRCULAR DISTRIBUTOR documented as of this encounter Care Teams Motor Coach Tour Operator Relationship Specialty Start Date End Date Michael Smith MD [address] [place] [address] PCP - General 04/28/01 10/23/20 documented as of this encounter
--- OUTSIDE RECORDS SUMMARY | 2025-03-01 06:57 | XMS_ITS | Encounter Summary ---
Author Organization [facility] Address [address] [place] [address] Care Team Providers Care Flight Communications Operator Name Role Phone Michael Smith MD Primary Care Provider [phone] Encounter Details Date Type Department Care Team (Late st Contact Info) Description 12/20/2007 Outpatient Historical [facility] Lebron Farr MD [address] [place] [phone] Social History Tobacco Use Types Packs/Day Years Used Date Smoking Tobacco: Never Comments No Sex and Gender Information Value Date Recorded Sex Assigned at Not on file Legal Sex Female 4:52 AM CASHIER CREDIT Gender Identity Not on file Sexual Orientation Not on file documented as of this encounter Plan of Treatment Not on file documented as of this encounter Visit Diagnoses Not on filedocumented in this encounter Additional Health Concerns Infection Onset Date Last Indicated Resolved Time R/O COVID-19 05/17/2020 05/20/2020 05/20/2020 3:21 PM CASHIER CREDIT documented as of this encounter Care Teams Flight Communications Operator Relationship Specialty Start Date End Date Michael Smith MD [address] [place] [address] PCP - General 04/28/01 10/23/20 documented as of this encounter
--- OUTSIDE RECORDS SUMMARY | 2025-03-01 06:57 | XMS_ITS | Encounter Summary ---
Author Organization [facility] Address [address] [place] [address] Care Team Providers Care Yeast Pumper Name Role Phone Michael Smith MD Primary Care Provider [phone] Encounter Details Date Type Department Care Team (Late st Contact Info) Description 05/27/2006 Orders Only [facility] Internal Medicine [address] [place] [address] Michael Smith MD [address] [facility] [address] [place] [address] Social History Tobacco Use Types Packs/Day Years Used Date Smoking Tobacco: Never Assessed Comments Unknown Sex and Gender Information Value Date Recorded Sex Assigned at Not on file Legal Sex Female 4:52 AM ENGINE PILOT Gender Identity Not on file Sexual Orientation Not on file documented as of this encounter Progress Notes * Michael Smith MD - 10/04/2007 12:27 PM CDT TIME:09:49 am PATIENT`S HOME PHONE: PATIENT`S WORK PHONE: PATIENT`S INSURANCE: [employer] WHO TOOK THE CALL: Anila Guthrie K GENERAL INFORMATION LAST VISIT: 03/08/06 WHO CALLED: Patient called. (A) [phone] PHARMACY NUMBER: [phone] SECTION 1: REQUESTED ACTION shannon 05/27/06 at 09:50 am: MEDICATION REQUEST: Pt has had cold x7dt--Pzkabjf Cold & Flu--nasal sinus congestion/no sore throat/no fever/no ear pn/yellow phlegm coughed up--cough just won't go away....../[facility] DOCTOR`S RESPONSE: [email or web address] 05/27/06 at 09:56 am MEDICATIONS: Call in to Pharmacy CEFUROXIME AXETIL ORAL TABLET 250 MG, 1 Two Times A Day, 20 Dispensed, status: NEW PRESCRIPTION, 05/27/2006. DOCTOR`S OTHER RESPONSE: She will need to come in if not better. FINAL ACTION: shannon 05/27/06 at 10:26 am Spoke with patient 05/27/06 at 10:27 am. Called pharmacy at 05/27/06 at 10:26 am. .../[facility] Electronically Signed by: Anila Guthrie on May documented in this encounter Plan of Treatment Not on file documented as of this encounter Visit Diagnoses Not on filedocumented in this encounter Additional Health Concerns Infection Onset Date Last Indicated Resolved Time R/O COVID-19 05/17/2020 05/20/2020 05/20/2020 3:21 PM ENGINE PILOT documented as of this encounter Care Teams Yeast Pumper Relationship Specialty Start Date End Date Michael Smith MD [address] [facility] [address] [place] [address] PCP - General 04/28/01 10/23/20 documented as of this encounter
--- OUTSIDE RECORDS SUMMARY | 2025-03-01 06:57 | XMS_ITS | Encounter Summary ---
Author Organization [facility] Address [address] [place] [address] Care Team Providers Care Manuscripts Archivist Name Role Phone Roxanne Werner MD Unavailable [phone] Ata Bronson DPM Unavailable [phone] Meir Ibrahim MD Primary Care Provider [phone] Encounter Details Date Type Department Care Team (Late st Contact Info) Description 02/12/2025 Results Follow-Up [place] Cold Working Supervisor [address] [place] [address] Laura Machado MA [employer] Social History [...] on file Legal Sex Female 2:53 PM VISUAL BASIC PROGRAMMER Gender Identity Female 08/19/2020 7:43 PM CDT Sexual Orientation Straight 09/24/2020 8: 49 AM CDT 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
--- OUTSIDE RECORDS SUMMARY | 2025-03-01 06:57 | XMS_ITS | Encounter Summary ---
Author Organization [facility] Address [address] [place] [address] Care Team Providers Care Data Designer Name Role Phone Michael Smith MD Primary Care Provider [phone] Encounter Details Date Type Department Care Team (Late st Contact Info) Description 10/06/2007 Outpatient Historical [facility] Internal Medicine [address] [place] [address] Michael Smith MD [address] [facility] [address] [place] [address] Social History Tobacco Use Types Packs/Day Years Used Date Smoking Tobacco: Never Assessed Comments Unknown Sex and Gender Information Value Date Recorded Sex Assigned at Not on file Legal Sex Female 4:52 AM PRINTING ASSISTANT Gender Identity Not on file Sexual [...] R/O COVID-19 05/17/2020 05/20/2020 05/20/2020 3:21 PM PRINTING ASSISTANT documented as of this encounter Care Teams Data Designer Relationship Specialty Start Date End Date Michael Smith MD [address] [facility] [address] [place] [address] PCP - General 04/28/01 10/23/20 documented as of this encounter
--- OUTSIDE RECORDS SUMMARY | 2025-03-01 06:57 | XMS_ITS | Encounter Summary ---
Author Organization [facility] Address [address] [place] [address] Care Team Providers Care Windows Server Specialist Name Role Phone Michael Smith MD Primary Care Provider Encounter Details Date Type Department Care Team (Late st Contact Info) Description 11/11/2004 Outpatient Historical [facility] Internal Medicine [address] [place] [address] Michael Smith MD [address] [place] [address] Social History Tobacco Use Types Packs/Day Years Used Date Smoking Tobacco: Never Assessed Comments Unknown Sex and Gender Information Value Date Recorded Sex Assigned at Not on file Legal Sex Female 4:52 AM POT LINING SUPERVISOR Gender Identity Not on file Sexual Orientation Not on file documented as of this encounter Plan of Treatment Not on file documented as of this encounter Visit Diagnoses Not on filedocumented in this encounter Additional Health Concerns Infection Onset Date Last Indicated Resolved Time R/O COVID-19 05/17/2020 05/20/2020 05/20/2020 3:21 PM POT LINING SUPERVISOR documented as of this encounter Care Teams Windows Server Specialist Relationship Specialty Start Date End Date Michael Smith MD [address] [place] [address] PCP - General 04/28/01 10/23/20 documented as of this encounter
--- OUTSIDE RECORDS SUMMARY | 2025-03-01 06:57 | XMS_ITS | Encounter Summary ---
Author Organization [facility] Address [address] [facility] Attn: Epic Prelude ADT [place] [address] Care Team Providers Care Cell Plasterer Name Role Phone Michael Smith MD Primary Care Provider [phone] Encounter Details Date Type Department Care Team (Late st Contact Info) Description 08/07/1992 Outpatient Historical Michael Smith MD [address] [place] [address] Social History Tobacco Use Types Packs/Day Years Used Date Smoking Tobacco: Never Assessed Comments Unknown Sex and Gender Information Value Date Recorded Sex Assigned at Not on file Legal Sex Female 4:52 AM AREA MECHANIC Gender Identity Not on file Sexual Orientation Not on file documented as of this encounter Plan of Treatment Not on file documented as of this encounter Visit Diagnoses Not on filedocumented in this encounter Additional Health Concerns Infection Onset Date Last Indicated Resolved Time R/O COVID-19 05/17/2020 05/20/2020 05/20/2020 3:21 PM AREA MECHANIC documented as of this encounter Care Teams Cell Plasterer Relationship Specialty Start Date End Date Michael Smith MD [address] [place] [address] PCP - General 04/28/01 10/23/20 documented as of this encounter
--- OUTSIDE RECORDS SUMMARY | 2025-03-01 06:57 | XMS_ITS | Encounter Summary ---
Author Organization [facility] Address [address] [facility] Attn: Epic Prelude ADT [place] [address] Care Team Providers Care Steel Rigger Name Role Phone Michael Smith MD Primary Care Provider Encounter Details Date Type Department Care Team (Late st Contact Info) Description 11/12/1992 Outpatient Historical Michael Smith MD [address] [place] [address] Social History Tobacco Use Types Packs/Day Years Used Date Smoking Tobacco: Never Assessed Comments Unknown Sex and Gender Information Value Date Recorded Sex Assigned at Not on file Legal Sex Female 4:52 AM NEEDLE POLISHER Gender Identity Not on file Sexual Orientation Not on file documented as of this encounter Plan of Treatment Not on file documented as of this encounter Visit Diagnoses Not on filedocumented in this encounter Additional Health Concerns Infection Onset Date Last Indicated Resolved Time R/O COVID-19 05/17/2020 05/20/2020 05/20/2020 3:21 PM NEEDLE POLISHER documented as of this encounter Care Teams Steel Rigger Relationship Specialty Start Date End Date Michael Smith MD [address] [place] [address] PCP - General 04/28/01 10/23/20 documented as of this encounter
--- OUTSIDE RECORDS SUMMARY | 2025-03-01 06:58 | XMS_ITS | Encounter Summary ---
Author Organization [facility] Address [address] [place] [address] Care Team Providers Care Banjo Repair Person Name Role Phone Michael Smith MD Primary Care Provider [phone] Encounter Details Date Type Department Care Team (Late st Contact Info) Description 10/22/2003 Outpatient Historical [facility] Internal Medicine [address] [place] [address] Michael Smith MD [address] [place] [address] Social History Tobacco Use Types Packs/Day Years Used Date Smoking Tobacco: Never Assessed Comments Unknown Sex and Gender Information Value Date Recorded Sex Assigned at Not on file Legal Sex Female 4:52 AM AUDITOR APPRAISER Gender Identity Not on file Sexual Orientation Not on file documented as of this encounter Plan of Treatment Not on file documented as of this encounter Visit Diagnoses Not on filedocumented in this encounter Additional Health Concerns Infection Onset Date Last Indicated Resolved Time R/O COVID-19 05/17/2020 05/20/2020 05/20/2020 3:21 PM AUDITOR APPRAISER documented as of this encounter Care Teams Banjo Repair Person Relationship Specialty Start Date End Date Michael Smith MD [address] [place] [address] PCP - General 04/28/01 10/23/20 documented as of this encounter
--- OUTSIDE RECORDS SUMMARY | 2025-03-01 06:58 | XMS_ITS | Encounter Summary ---
Author Organization [facility] Address [address] [place] [address] Care Team Providers Care Retail Coverage Merchandiser Lead Name Role Phone Michael Smith MD Primary Care Provider [phone] Encounter Details Date Type Department Care Team (Latest Contact Info) Description 10/14/2005 Outpatient Historical [facility] Jonel Mulligan MD [address] [facility] [address] [place] [address] Diffuse Cystic Mastopathy (Primary Dx) Social History Tobacco Use Types Packs/Day Years Used Date Smoking Tobacco: Never Assessed Comments Unknown Sex and Gender Information Value Date Recorded Sex Assigned at Not on file Legal Sex Female 4:52 AM PAINT LINE OPERATOR Gender Identity Not on file Sexual Orientation Not on file documented as of this encounter Plan of Treatment Not on file documented as of this encounter Visit Diagnoses Diagnosis Diffuse cystic mastopathy- Primary documented in this encounter Additional Health Concerns Infection Onset Date Last Indicated Resolved Time R/O COVID-19 05/17/2020 05/20/2020 05/20/2020 3:21 PM PAINT LINE OPERATOR documented as of this encounter Care Teams Retail Coverage Merchandiser Lead Relationship Specialty Start Date End Date Michael Smith MD [address] [place] [address] PCP - General 04/28/01 10/23/20 documented as of this encounter
--- OUTSIDE RECORDS SUMMARY | 2025-03-01 06:58 | XMS_ITS | Encounter Summary ---
Author Organization [facility] Address [address] [place] [address] Care Team Providers Care Small Animal Caretaker Name Role Phone Michael Smith MD Primary Care Provider [phone] Encounter Details Date Type Department Care Team (Latest Contact Info) Description 09/29/2005 Outpatient Historical [facility] Jonel Vásquez MD [address] [facility] [address] [place] [address] Other Screening Mammogram (Primary Dx) Social History Tobacco Use Types Packs/Day Years Used Date Smoking Tobacco: Never Assessed Comments Unknown Sex and Gender Information Value Date Recorded Sex Assigned at Not on file Legal Sex Female 4:52 AM BLIND STITCH MACHINE OPERATOR Gender Identity Not on file Sexual Orientation Not on file documented as of this encounter Plan of Treatment Not on file documented as of this encounter Visit Diagnoses Diagnosis Other screening mammogram- Primary documented in this encounter Additional Health Concerns Infection Onset Date Last Indicated Resolved Time R/O COVID-19 05/17/2020 05/20/2020 05/20/2020 3:21 PM BLIND STITCH MACHINE OPERATOR documented as of this encounter Care Teams Small Animal Caretaker Relationship Specialty Start Date End Date Michael Smith MD [address] [facility] [address] [place] [address] PCP - General 04/28/01 10/23/20 documented as of this encounter
--- OUTSIDE RECORDS SUMMARY | 2025-03-01 06:58 | XMS_ITS | Encounter Summary ---
Author Organization [facility] Address [address] [place] [address] Care Team Providers Care Cocoa Butter Filter Operator Name Role Phone Michael Smith MD Primary Care Provider [phone] Encounter Details Date Type Department Care Team (Late st Contact Info) Description 01/22/2005 Outpatient Historical Division of Neurology [address] [address] Brandon De Leon MD [address] [facility] [address] [address] Social History Tobacco Use Types Packs/Day Years Used Date Smoking Tobacco: Never Assessed Comments Unknown Sex and Gender Information Value Date Recorded Sex Assigned at Not on file Legal Sex Female 4:52 AM WOOD SCIENCE PROFESSOR Gender Identity Not on file Sexual Orientation Not on file documented as of this encounter Plan of Treatment Not on file documented as of this encounter Visit Diagnoses Not on filedocumented in this encounter Additional Health Concerns Infection Onset Date Last Indicated Resolved Time R/O COVID-19 05/17/2020 05/20/2020 05/20/2020 3:21 PM WOOD SCIENCE PROFESSOR documented as of this encounter Care Teams Cocoa Butter Filter Operator Relationship Specialty Start Date End Date Michael Smith MD [address] [facility] [address] [place] [address] PCP - General 04/28/01 10/23/20 documented as of this encounter
--- OUTSIDE RECORDS SUMMARY | 2025-03-01 06:58 | XMS_ITS | Encounter Summary ---
Author Organization [facility] Address [address] [place] [address] Care Team Providers Care Peanut Salter Name Role Phone Michael Smith MD Primary Care Provider [phone] Encounter Details Date Type Department Care Team (Late st Contact Info) Description 02/10/2005 Outpatient Historical [facility] Internal Medicine [address] [place] [address] Michael Smith MD [address] [place] [address] Social History Tobacco Use Types Packs/Day Years Used Date Smoking Tobacco: Never Assessed Comments Unknown Sex and Gender Information Value Date Recorded Sex Assigned at Not on file Legal Sex Female 4:52 AM TRAIN CREW MEMBER Gender Identity Not on file Sexual Orientation Not on file documented as of this encounter Plan of Treatment Not on file documented as of this encounter Visit Diagnoses Not on filedocumented in this encounter Additional Health Concerns Infection Onset Date Last Indicated Resolved Time R/O COVID-19 05/17/2020 05/20/2020 05/20/2020 3:21 PM TRAIN CREW MEMBER documented as of this encounter Care Teams Peanut Salter Relationship Specialty Start Date End Date Michael Smith MD [address] [place] [address] PCP - General 04/28/01 10/23/20 documented as of this encounter
--- OUTSIDE RECORDS SUMMARY | 2025-03-01 06:58 | XMS_ITS | Encounter Summary ---
Author Organization [facility] Address [address] [place] [address] Care Team Providers Care Med Aide Name Role Phone Michael Smith MD Primary Care Provider [phone] Encounter Details Date Type Department Care Team (Late st Contact Info) Description 03/08/2006 Outpatient Historical [facility] Internal Medicine [address] [place] [address] Michael Smith MD [address] [place] [address] Social History Tobacco Use Types Packs/Day Years Used Date Smoking Tobacco: Never Assessed Comments Unknown Sex and Gender Information Value Date Recorded Sex Assigned at Not on file Legal Sex Female 4:52 AM NUMERICAL CONTROL LATHE OPERATOR Gender Identity Not on file Sexual Orientation Not on file documented as of this encounter Plan of Treatment Not on file documented as of this encounter Visit Diagnoses Not on filedocumented in this encounter Additional Health Concerns Infection Onset Date Last Indicated Resolved Time R/O COVID-19 05/17/2020 05/20/2020 05/20/2020 3:21 PM NUMERICAL CONTROL LATHE OPERATOR documented as of this encounter Care Teams Med Aide Relationship Specialty Start Date End Date Michael Smith MD [address] [place] [address] PCP - General 04/28/01 10/23/20 documented as of this encounter
--- OUTSIDE RECORDS SUMMARY | 2025-03-01 06:58 | XMS_ITS | Encounter Summary ---
Author Organization [facility] Address [address] [place] [address] Care Team Providers Care Greaser And Oiler Name Role Phone Michael Smith MD Primary Care Provider Encounter Details Date Type Department Care Team (Late st Contact Info) Description 11/13/2005 [facility] [place] [facility] [address] [place] [address] Michael Smith MD [address] [place] [address] Social History Tobacco Use Types Packs/Day Years Used Date Smoking Tobacco: Never Assessed Comments Unknown Sex and Gender Information Value Date Recorded Sex Assigned at Not on file Legal Sex Female 4:52 AM TECHNICAL SERVICES LIBRARIAN Gender Identity Not on file Sexual Orientation Not on file documented as of this encounter Plan of Treatment Not on file documented as of this encounter Visit Diagnoses Not on filedocumented in this encounter Additional Health Concerns Infection Onset Date Last Indicated Resolved Time R/O COVID-19 05/17/2020 05/20/2020 05/20/2020 3:21 PM TECHNICAL SERVICES LIBRARIAN documented as of this encounter Care Teams Greaser And Oiler Relationship Specialty Start Date End Date Michael Smith MD [address] [place] [address] PCP - General 04/28/01 10/23/20 documented as of this encounter
--- OUTSIDE RECORDS SUMMARY | 2025-03-01 06:58 | XMS_ITS | Encounter Summary ---
Author Organization [facility] Address [address] [place] [address] Care Team Providers Care Dental Nurse Name Role Phone Michael Smith MD Primary Care Provider [phone] Encounter Details Date Type Department Care Team (Late st Contact Info) Description 12/03/2005 Outpatient Historical [facility] Internal Medicine [address] [place] [address] Michael Smith MD [address] [facility] [address] [place] [address] Social History Tobacco Use Types Packs/Day Years Used Date Smoking Tobacco: Never Assessed Comments Unknown Sex and Gender Information Value Date Recorded Sex Assigned at Not on file Legal Sex Female 4:52 AM DECORATING CONSULTANT Gender Identity Not on file Sexual [...] R/O COVID-19 05/17/2020 05/20/2020 05/20/2020 3:21 PM DECORATING CONSULTANT documented as of this encounter Care Teams Dental Nurse Relationship Specialty Start Date End Date Michael Smith MD [address] [facility] [address] [place] [address] PCP - General 04/28/01 10/23/20 documented as of this encounter
--- OUTSIDE RECORDS SUMMARY | 2025-03-01 06:58 | XMS_ITS | Encounter Summary ---
Author Organization [facility] Address [address] [place] [address] Care Team Providers Care Top Printing Press Operator Name Role Phone Michael Smith MD Primary Care Provider [phone] Encounter Details Date Type Department Care Team (Late st Contact Info) Description 03/08/2006 Outpatient Historical [facility] Internal Medicine [address] [place] [address] Michael Smith MD [address] [place] [address] Social History Tobacco Use Types Packs/Day Years Used Date Smoking Tobacco: Never Assessed Comments Unknown Sex and Gender Information Value Date Recorded Sex Assigned at Not on file Legal Sex Female 4:52 AM RESIDENTIAL LIFE DIRECTOR Gender Identity Not on file Sexual Orientation Not on file documented as of this encounter Plan of Treatment Not on file documented as of this encounter Visit Diagnoses Not on filedocumented in this encounter Additional Health Concerns Infection Onset Date Last Indicated Resolved Time R/O COVID-19 05/17/2020 05/20/2020 05/20/2020 3:21 PM RESIDENTIAL LIFE DIRECTOR documented as of this encounter Care Teams Top Printing Press Operator Relationship Specialty Start Date End Date Michael Smith MD [address] [place] [address] PCP - General 04/28/01 10/23/20 documented as of this encounter
--- OUTSIDE RECORDS SUMMARY | 2025-03-01 06:58 | XMS_ITS | Encounter Summary ---
Author Organization [facility] Address [address] [place] [address] Care Team Providers Care Forge Utility Worker Name Role Phone Perry Smith MD Primary Care Provider [phone] Encounter Details Date Type Department Care Team (Latest Contact Info) Description 07/16/2008 Outpatient Historical [facility] Carie Vásquez MD [address] [facility] [address] [place] [address] Other Specified Menopausal and Postmenopausal Disorder Social History Tobacco Use Types Packs/Day Years Used Date Smoking Tobacco: Never Comments No Sex and Gender Information Value Date Recorded Sex Assigned at Not on file Legal Sex Female 4:52 AM BIOINFORMATICS COMPUTER SCIENTIST Gender Identity Not on file Sexual [...] 4:46 PM CDT [facility] [address] [place], [place] [address] Admit Date: 07/16/2008 MENDEZJOHNATHAN BECKERBOSSMAN [place] Sex: F Admit Prov: CARIE VÁSQUEZ Date: 1950 Primary Care Prov: PERRY SMITH CMRN: [id number] Room: [facility] SSN: [address] [place] [address] IMAGING SERVICES Ordering Prov: N/A Accession Number: [id number] Interpretation BONE MINERAL DENSITY (DEXA) HISTORY: 58 year old female with postmenopausal symptoms needing evaluation for osteoporosis. PROCEDURE: Using a Lingoing dual energy x-ray absorptiometry system, the patient's [...] Dill - 07/16/2008 [facility] [address] [place], [place] [address] Admit Date: 07/16/2008 ARABELLA MENDEZ Sex: F Admit Prov: SUELLEN CARIE Bates Date: 1950 Primary Care Prov: PERRY SMITH CMRN: [id number] Room: [facility] SSN: [id number] IMAGING SERVICES Ordering Prov: N/A Interpretation BONE MINERAL DENSITY (DEXA) HISTORY: 58 year old female with postmenopausal symptoms needing evaluationfor osteoporosis. PROCEDURE: Using a Lingoing dual energy x-ray absorptiometry system, the patient's [...] Time R/O COVID-19 05/17/2020 05/20/202005/2005/20/2020 3:21 PM BIOINFORMATICS COMPUTER SCIENTIST documented as of this encounter Care Teams Forge Utility Worker Relationship Specialty Start Date End Date Perry Smith MD [address] [facility] [address] [place] [address] PCP - General 04/28/01 10/23/20 documented as of this encounter
--- OUTSIDE RECORDS SUMMARY | 2025-03-01 06:58 | XMS_ITS | Encounter Summary ---
Author Organization [facility] Address [address] [place] [address] Care Team Providers Care Hasher Operator Name Role Phone Michael Smith MD Primary Care Provider [phone] Encounter Details Date Type Department Care Team (Late st Contact Info) Description 01/30/2005 Outpatient Historical [facility] Internal Medicine [address] [place] [address] Michael Smith MD [address] [place] [address] Social History Tobacco Use Types Packs/Day Years Used Date Smoking Tobacco: Never Assessed Comments Unknown Sex and Gender Information Value Date Recorded Sex Assigned at Not on file Legal Sex Female 4:52 AM CASH CROP FARMER Gender Identity Not on file Sexual Orientation Not on file documented as of this encounter Plan of Treatment Not on file documented as of this encounter Visit Diagnoses Not on filedocumented in this encounter Additional Health Concerns Infection Onset Date Last Indicated Resolved Time R/O COVID-19 05/17/2020 05/20/2020 05/20/2020 3:21 PM CASH CROP FARMER documented as of this encounter Care Teams Hasher Operator Relationship Specialty Start Date End Date Michael Smith MD [address] [place] [address] PCP - General 04/28/01 10/23/20 documented as of this encounter
--- OUTSIDE RECORDS SUMMARY | 2025-03-01 06:58 | XMS_ITS | Encounter Summary ---
Author Organization [employer] Address [address] [place] [address] Care Team Providers Care Property Administrator Name Role Phone Michael Smith MD Primary Care Provider [phone] Encounter Details Date Type Department Care Team (Latest Contact Info) Description 09/17/2003 Outpatient Historical [facility] Michael Smith MD [address] [place] [address] OTHER OVARIAN FAILURE (Primary Dx) Social History Tobacco Use Types Packs/Day Years Used Date Smoking Tobacco: Never Assessed Comments Unknown Sex and Gender Information Value Date Recorded Sex Assigned at Not on file Legal Sex Female 4:52 AM SURGICAL GARMENT INSPECTOR Gender Identity Not on file Sexual Orientation Not on file documented as of this encounter Plan of Treatment Not on file documented as of this encounter Visit Diagnoses Diagnosis Other ovarian failure(256.39)- Primary Other ovarian failure documented in this encounter Additional Health Concerns Infection Onset Date Last Indicated Resolved Time R/O COVID-19 05/17/2020 05/20/2020 05/20/2020 3:21 PM SURGICAL GARMENT INSPECTOR documented as of this encounter Care Teams Property Administrator Relationship Specialty Start Date End Date Michael Smith MD [address] [place] [address] PCP - General 04/28/01 10/23/20 documented as of this encounter
--- OUTSIDE RECORDS SUMMARY | 2025-03-01 06:58 | XMS_ITS | Encounter Summary ---
Author Organization [facility] Address [address] [place] [address] Care Team Providers Care Service Department Manager Name Role Phone Michael Smith MD Primary Care Provider [phone] Encounter Details Date Type Department Care Team (Late st Contact Info) Description 03/08/2006 Outpatient Historical [facility] Internal Medicine [address] [place] [address] Michael Smith MD [address] [place] [address] Social History Tobacco Use Types Packs/Day Years Used Date Smoking Tobacco: Never Assessed Comments Unknown Sex and Gender Information Value Date Recorded Sex Assigned at Not on file Legal Sex Female 4:52 AM RETAIL CENTER RECEPTIONIST Gender Identity Not on file Sexual Orientation Not on file documented as of this encounter Plan of Treatment Not on file documented as of this encounter Visit Diagnoses Not on filedocumented in this encounter Additional Health Concerns Infection Onset Date Last Indicated Resolved Time R/O COVID-19 05/17/2020 05/20/2020 05/20/2020 3:21 PM RETAIL CENTER RECEPTIONIST documented as of this encounter Care Teams Service Department Manager Relationship Specialty Start Date End Date Michael Smith MD [address] [place] [address] PCP - General 04/28/01 10/23/20 documented as of this encounter
--- OUTSIDE RECORDS SUMMARY | 2025-03-01 06:58 | XMS_ITS | Encounter Summary ---
Author Organization [facility] Address [address] [place] [address] Care Team Providers Care Entry Specialist Name Role Phone Michael Smith MD Primary Care Provider [phone] Encounter Details Date Type Department Care Team (Late st Contact Info) Description 04/30/2003 Outpatient Historical [facility] Internal Medicine [address] [place] [address] Michael Smith MD [address] [place] [address] Social History Tobacco Use Types Packs/Day Years Used Date Smoking Tobacco: Never Assessed Comments Unknown Sex and Gender Information Value Date Recorded Sex Assigned at Not on file Legal Sex Female 4:52 AM RESPIRATORY CARE SPECIALIST Gender Identity Not on file Sexual Orientation Not on file documented as of this encounter Plan of Treatment Not on file documented as of this encounter Visit Diagnoses Not on filedocumented in this encounter Additional Health Concerns Infection Onset Date Last Indicated Resolved Time R/O COVID-19 05/17/2020 05/20/2020 05/20/2020 3:21 PM RESPIRATORY CARE SPECIALIST documented as of this encounter Care Teams Entry Specialist Relationship Specialty Start Date End Date Michael Smith MD [address] [place] [address] PCP - General 04/28/01 10/23/20 documented as of this encounter
--- OUTSIDE RECORDS SUMMARY | 2025-03-01 06:58 | XMS_ITS | Encounter Summary ---
Author Organization [facility] Address [address] [place] [address] Care Team Providers Care Machine Stripper Cutter Name Role Phone Michael Smith MD Primary Care Provider Encounter Details Date Type Department Care Team (Late st Contact Info) Description 03/08/2006 Orders Only [facility] Internal Medicine [address] [place] [address] Michael Smith MD [address] [facility] [address] [place] [address] Social History Tobacco Use Types Packs/Day Years Used Date Smoking Tobacco: Never Assessed Comments Unknown Sex and Gender Information Value Date Recorded Sex Assigned at Not on file Legal Sex Female 4:52 AM BANK ANALYST Gender Identity Not on file Sexual [...] may have bruised it. CURRENT MEDICATION LIST: [id number] ORAL TABLET 50-325-40 MG, Take one tablet [...] golfing, walking. PHYSICAL EXAMINATION: CONSTITUTIONAL: GENERAL APPEARANCE: -Indian female, in no acute distress. EYES: PUPILS: [...] No edema. BREAST/CHEST: EXAM DONE BY PATIENT'S SIGNALER. LYMPHATICS: No lymphadenopathy in the neck, axillae, or groin. GASTROINTESTINAL: ABDOMEN: Soft, non-tender, without masses. Bowel sounds active. LIVER/SPLEEN/KIDNEY: No hepatosplenomegaly, tenderness or nodularity. Kidneys not palpable. GENITOURINARY: EXTERNAL/VAGINAL: GENITAL EXAMINATION NOT DONE, PATIENT'S EXAM PERFORMED BY HER SIGNALER. MUSCULOSKELETAL EXAM: GAIT/STATION: Normal gait. EXTREMITIES: LEFT [...] or tightening. Wears wig NEUROLOGIC: CRANIAL NERVES: email engineer II-XII grossly intact. SENSATION: Normal vibration sensation [...] 1000mcg per month. LAB ORDERS: Order number: [id number] Test Ordered: CBC (INCLUDES DIFF/PLT) 6399 Order number: [id number] Test Ordered: VITAMIN B12 927 401.1-HYPERTENSION ESSENTIAL BENIGN ASSESSMENT: The blood pressure remains satisfactory. Will not change medication, continue to monitor for complications. Will check laboratory to assess disease effect, to assess medication effect. LAB ORDERS: Order number: [id number] Test Ordered: COMPREHENSIVE METABOLIC PANEL 84929 Order number: [id number] Test Ordered: LIPID PANEL 7600 Order number: [id number] Test Ordered: URINALYSIS, COMPLETE 5463 244.9-HYPOTHYROIDISM ASSESSMENT: The patient appears stable. Will follow for signs of hypothyroidism. Will not change medication, continue to monitor for complications. Will check laboratory for possible medication adjustment. LAB ORDERS: Order number: [id number] Test Ordered: TSH 899 396.9-DISEASES OF MITRAL AND AORTIC VALVES ASSESSMENT: Stable clinically. ECHO done last year. She has no symptoms and has good valve action. She is to take antibiotic prophylaxis. I think an echo next year will be adequate. LAB ORDERS: Order number: [id number] Test Ordered: EKG WITH INTERPRETATION AND REPORT 77862 719.44-OTHER AND UNSPECIFIED DISORDERS OF JOINT ASSESSMENT: Suspect contusion of the thumb. This should heal with no difficulty. If failing to improve with rest over two weeks she will call. V06.1-NEED FOR VACCINE PHBHKFDFDS-ASDQMYA-NOSPNFWDS LAB ORDERS: Order number: [id number] Test Ordered: INJ-TDAP 11 YRS OR OLDER 83943 211.3-COLON POLYP(S) ASSESSMENT: She is aware of [...] R/O COVID-19 05/17/2020 05/20/2020 05/20/2020 3:21 PM BANK ANALYST documented as of this encounter Care Teams Machine Stripper Cutter Relationship Specialty Start Date End Date Michael Smith MD [address] [facility] [address] [place] [address] PCP - General 04/28/01 10/23/20 documented as of this encounter
--- OUTSIDE RECORDS SUMMARY | 2025-03-01 06:58 | XMS_ITS | Encounter Summary ---
Author Organization [facility] Address [address] [place] [address] Care Team Providers Care Surgical Services Tech Name Role Phone Perry Smith MD Primary Care Provider [phone] Encounter Details Date Type Department Care Team (Latest Contact Info) Description 07/16/2008 Outpatient Historical [facility] Carie Ken MD [address] [facility] [address] [place] [address] Other Screening Mammogram Social History Tobacco Use Types Packs/Day Years Used Date Smoking Tobacco: Never Comments No Sex and Gender Information Value Date Recorded Sex Assigned at Not on file Legal Sex Female 4:52 AM STRIP ROLLER Gender Identity Not on file Sexual Orientation [...] PM CDT Narrative 07/18/2008 8:34 AM CDT [facility] [address] [place], [place] [address] Admit Date: 07/16/2008 ARABELLA MENDEZ Sex: F Admit Prov: CARIE KEN Date: 1950 Primary Care [id number] IM[facility]ING SERVICES Ordering Prov: CARIE KEN Accession Number: [id number] Interpretation BILATERAL SCREENING DIGITAL MAMMOGRAMS WITH COMPUTER [...] [facility]K Procedure Note Jenn Alvarez - 07/18/2008 [address] [place] [address] [place], [place] [address] Admit Date: 07/16/2008 ARABELLA MENDEZ Sex: F Admit Prov: CARIE KEN Date: 1950 Primary Care Prov: PERRY SMITH CMRN: [id number] [facility] [id number] IMAGING SERVICES Ordering Prov: CARIE KEN Interpretation [...] R/O COVID-19 05/17/2020 05/20/2020 05/20/2020 3:21 PM STRIP ROLLER documented as of this encounter Care Teams Surgical Services Tech Relationship Specialty Start Date End Date Perry Smith MD [address] [facility] [address] [place] [address] PCP - General 04/28/01 10/23/20 documented as of this encounter
--- OUTSIDE RECORDS SUMMARY | 2025-03-01 06:58 | XMS_ITS | Encounter Summary ---
Author Organization [facility] Address [address] [place] [address] Care Team Providers Care Musical Instrument Supervisor Name Role Phone Michael Smith MD Primary Care Provider [phone] Encounter Details Date Type Department Care Team (Latest Contact Info) Description 09/21/2001 Outpatient Historical [facility] Jonel Mulligan MD [address] [facility] [address] [place] [address] FOLLOW-UP EXAM NEC (Primary Dx) Social History Tobacco Use Types Packs/Day Years Used Date Smoking Tobacco: Never Assessed Comments Unknown Sex and Gender Information Value Date Recorded Sex Assigned at Not on file Legal Sex Female 4:52 AM SCIENCE JOB TITLES Gender Identity Not on file Sexual Orientation Not on file documented as of this encounter Plan of Treatment Not on file documented as of this encounter Visit Diagnoses Diagnosis Other follow-up examination(V67.59)- Primary Other follow-up examination documented in this encounter Additional Health Concerns Infection Onset Date Last Indicated Resolved Time R/O COVID-19 05/17/2020 05/20/2020 05/20/2020 3:21 PM SCIENCE JOB TITLES documented as of this encounter Care Teams Musical Instrument Supervisor Relationship Specialty Start Date End Date Michael Smith MD [address] [place] [address] PCP - General 04/28/01 10/23/20 documented as of this encounter
--- OUTSIDE RECORDS SUMMARY | 2025-03-01 06:58 | XMS_ITS | Encounter Summary ---
Author Organization [facility] Address [address] [place] [address] Care Team Providers Care Marine Engineering Professor Name Role Phone Michael Smith MD Primary Care Provider [phone] Encounter Details Date Type Department Care Team (Late st Contact Info) Description 08/25/2002 Outpatient Historical [facility] Internal Medicine [address] [place] [address] Michael Smith MD [address] [place] [address] Social History Tobacco Use Types Packs/Day Years Used Date Smoking Tobacco: Never Assessed Comments Unknown Sex and Gender Information Value Date Recorded Sex Assigned at Not on file Legal Sex Female 4:52 AM LEGAL WORD PROCESSOR Gender Identity Not on file Sexual Orientation Not on file documented as of this encounter Plan of Treatment Not on file documented as of this encounter Visit Diagnoses Not on filedocumented in this encounter Additional Health Concerns Infection Onset Date Last Indicated Resolved Time R/O COVID-19 05/17/2020 05/20/2020 05/20/2020 3:21 PM LEGAL WORD PROCESSOR documented as of this encounter Care Teams Marine Engineering Professor Relationship Specialty Start Date End Date Michael Smith MD [address] [place] [address] PCP - General 04/28/01 10/23/20 documented as of this encounter
[2025-03-01 09:29] LABS: Free T4 Free Thyroxine 2.14 ng/dL (0.78-2.19)
[2025-03-01 09:49] LABS: Thyroid Stimulating Hormone 2.600 uIU/mL (0.465-4.680)
[2025-03-01 10:24] LABS: Vitamin B12 929.0 pg/mL (239-931)
== END 2025-03-01 06:53 | disposition home or self-care (01) ==
LOC: ANHLAB 06:54
PROVIDERS: PCP Internal Medicine; Visit Provider Internal Medicine
DX: E03.9 Hypothyroidism, unspecified (principal); R55 Syncope and collapse; R51.9 Headache, unspecified; R41.89 Other symptoms and signs involving cognitive functions and awareness; E53.8 Deficiency of other specified B group vitamins
CPT/HCPCS: 36415; 82607; 82746; 84439; 84443

== ENCOUNTER 2025-03-09 08:52 | Outpatient (CLI) | payer MEDICARE, SELFPAY ==
--- OUTSIDE RECORDS SUMMARY | 2025-03-09 09:11 | XMS_ITS | Clinical Summary ---
Author Organization [facility] Address [address] [facility] [place] [address] Care Team Providers Care Cabin Cleaning Supervisor Name Role Phone Michael Smith MD Primary Care Provider [phone] Source Comments [facility],non-owned Affiliates and Associated Physician Practices is amultiple site organization consisting of ambulatory clinics and hospital sitesin [place], [place], [place] and [place]. This disclosure is being madepursuant to the Care Everywhere program and may not contain all information available regarding this patient. Last updated 18.[facility] Allergies Active Allergy Reactions Criticality Noted Date [...] Comments Blood Pressure 124/60 06/07/2018 7:59 AM ENVIRONMENTAL FIELD TEAM MEMBER Pulse 59 06/07/2018 7:59 AM ENVIRONMENTAL FIELD TEAM MEMBER Temperature 36.9 C (98.5 F) 06/07/2018 7:59 AM ENVIRONMENTAL FIELD TEAM MEMBER Respiratory Rate 16 06/07/2018 7:59 AM ENVIRONMENTAL FIELD TEAM MEMBER Oxygen Saturation 92% 06/07/2018 7:59 AM ENVIRONMENTAL FIELD TEAM MEMBER Inhaled Oxygen Concentration - - Weight 87.1 kg (192 lb) 06/14/2018 8:56 AM ENVIRONMENTAL FIELD TEAM MEMBER Height 172.7 cm (5' 8) 06/14/2018 8:56 AM ENVIRONMENTAL FIELD TEAM MEMBER Body Mass Index 29.19 06/14/2018 8:56 AM ENVIRONMENTAL FIELD TEAM MEMBER Plan of Treatment Health Maintenance Due Date [...] (CALCIUM TOTAL) AM Draw 06/07/2018 1:19 AM ENVIRONMENTAL FIELD TEAM MEMBER from Last 3 Months or Most Recently Relevant to Health Maintenance Results * (ABNORMAL) BASIC METABOLIC PANEL (CALCIUM TOTAL) (06/07/2018 1:19 AM ENVIRONMENTAL FIELD TEAM MEMBER) Glucose 137(H) 74 - 106 mg/dL 06/07/2018 1:44 AM [facility] Sodium 139 136 - 145 mmol/L 06/07/2018 1:44 AM [facility] Potassium 3.0(L) 3.5 - 5.1 mmol/L 06/07/2018 1:44 AM [facility] Chloride 108(H) 98 - 107 mmol/L 06/07/2018 1:44 AM [facility] CO2 25 22 - 31 mmol/L 06/07/2018 1:44 AM [facility] Calcium 8.5 8.5 - 10.1 mg/dL 06/07/2018 1:44 AM [facility] Anion Gap 6(L) 8 - 16 mmol/L 06/07/2018 1:44 AM [facility] BUN 9 7 - 21 mg/dL 06/07/2018 1:44 AM [facility] Creatinine 0.85 0.50 - 1.30 mg/dL 06/07/2018 1:44 AM [facility] eGFR by MDRD >60 mL/min/1.7 3m2 06/07/2018 1:44 AM [facility] eGFR by MDRD >60 mL/min/1.7 3m2 06/07/2018 1:44 AM [facility] Blood BLOOD SPECIMEN / Unknown Venipuncture / Unknown 06/07/2018 1:19 AM ENVIRONMENTAL FIELD TEAM MEMBER 06/07/2018 1:26 AM ENVIRONMENTAL FIELD TEAM MEMBER Fredi Hudson MD LAB - CHEMISTRY ORDERAB LES Final Result [facility] [address] [place] [address] from Last 3 Months or Most Recently Relevant to Health Maintenance Insurance MEDICARE [employer] Advance Directives Documents on File Type Date Recorded Patient Secretary Of State Expl anation Adv Directive/Living Will/POA 06/08/2018 12:54 PM * Full Code (Latest Code Status on File) Date Activated Date Inactivated Comments 06/06/2018 3:29 PM 06/07/2018 3:41 PM * Full Code Date Activated Date Inactivated Comments 06/05/2018 9:50 PM 06/06/2018 3:29 PM Care Teams Cabin Cleaning Supervisor Relationship Specialty Start Date End Date Michael Smith MD PCP - General Internal Medicine 10/13/12
--- OUTSIDE RECORDS SUMMARY | 2025-03-09 09:11 | XMS_ITS | Patient Health Record ---
Author Organization [facility] Address [address] [facility] [address] [place] [address] Care Team Providers Care Business Data Analyst Name Role Phone Michael Smith MD Primary Care Provider Unavaila ble Reason For Referral No Information Plan Of Treatment No Information Insurance Providers Payer Name Payer Address Payer Phone Subscriber Number Group Number Insured Name Patient Relationship to Insured Coverage Start Date Coverage End Date Medicare E2 [address] [address] [place] [address] [id number] Arabella Hankins Self - patient is the insured [employer] [facility] Supp[employer] Plan [address] [address] [place] [address] [phone] [id number] Arabella Hankins Self - patient is the insured
--- OUTSIDE RECORDS SUMMARY | 2025-03-09 09:12 | XMS_ITS | Encounter Summary ---
Author Organization [facility] Address [address] [place] [address] Care Team Providers Care Forensic Dna Analyst Name Role Phone Michael Smith MD Primary Care Provider [phone] Encounter Details Date Type Department Care Team (Late st Contact Info) Description 11/29/2006 Orders Only [facility] Internal Medicine [address] [place] [address] Michael Smith MD [address] [place] [address] Social History Tobacco Use Types Packs/Day Years Used Date Smoking Tobacco: Never Assessed Comments Unknown Sex and Gender Information Value Date Recorded Sex Assigned at Not on file Legal Sex Female 4:52 AM TOWBOAT ENGINEER Gender Identity Not on file Sexual Orientation Not on file documented as of this encounter Plan of Treatment Not on file documented as of this encounter Visit Diagnoses Not on filedocumented in this encounter Additional Health Concerns Infection Onset Date Last Indicated Resolved Time R/O COVID-19 05/17/2020 05/20/2020 05/20/2020 3:21 PM TOWBOAT ENGINEER documented as of this encounter Care Teams Forensic Dna Analyst Relationship Specialty Start Date End Date Michael Smith MD [address] [place] [address] PCP - General 04/28/01 10/23/20 documented as of this encounter
--- OUTSIDE RECORDS SUMMARY | 2025-03-09 09:12 | XMS_ITS | Encounter Summary ---
Author Organization [facility] Address [address] [place] [address] Care Team Providers Care Aligning Inspector Name Role Phone Michael Smith MD Primary Care Provider [phone] Encounter Details Date Type Department Care Team (Latest Contact Info) Description 10/22/2003 Outpatient Historical HIS IMG[facility]LAB [facility] Jonel Vásquez MD [address] [facility] [address] [place] [address] SCREENING MAMM-MAILG NEOPL-OTHER (Primary Dx) Social History Tobacco Use Types Packs/Day Years Used Date Smoking Tobacco: Never Assessed Comments Unknown Sex and Gender Information Value Date Recorded Sex Assigned at Not on file Legal Sex Female 4:52 AM PLUCK TRIMMER Gender Identity Not on file Sexual Orientation Not on file documented as of this encounter Plan of Treatment Not on file documented as of this encounter Visit Diagnoses Diagnosis Other screening mammogram- Primary documented in this encounter Additional Health Concerns Infection Onset Date Last Indicated Resolved Time R/O COVID-19 05/17/2020 05/20/2020 05/20/2020 3:21 PM PLUCK TRIMMER documented as of this encounter Care Teams Aligning Inspector Relationship Specialty Start Date End Date Michael Smith MD [address] [facility] [address] [place] [address] PCP - General 04/28/01 10/23/20 documented as of this encounter
--- OUTSIDE RECORDS SUMMARY | 2025-03-09 09:12 | XMS_ITS | Encounter Summary ---
Author Organization [facility] Address [address] [place] [address] Care Team Providers Care Supervisor Laboratory Name Role Phone Perry Smith MD Primary Care Provider [phone] Encounter Details Date Type Department Care Team (Late st Contact Info) Description 09/12/2007 Outpatient Historical HIS IMG[facility]LAB [facility] Perry Smith MD [address] [facility] [address] [place] [address] Headache Social History Tobacco Use Types Packs/Day Years Used Date Smoking Tobacco: Never Assessed Comments Unknown Sex and Gender Information Value Date Recorded Sex Assigned at Not on file Legal Sex Female 4:52 AM MID LEVEL GAME DESIGNER Gender Identity Not on file Sexual Orientation [...] PM CDT Narrative 09/13/2007 8:26 AM CDT [facility] [address] [place], [place] [address] Admit Date: 09/12/2007 ARABELLA MENDEZ Sex: F Admit Prov: PERRY SMITH Date: 1950 Primary Care Prov: PERRY SMITH CMRN: [id number] [id number] Ordering Prov: N/A Accession Number: [id number] Interpretation MRI ANGIO HEAD WITHOUT CONTRAST 09/12/2007 Indication: Five family members with brain aneurysms. Technique: Yybe-os-jxjvmu MRA sequence was performed as well as [...] SJ Procedure Note Nathan Mcgee - 09/13/[address] [address] Admit Date: 09/12/2007 ARABELLA MENDEZ Sex: F Admit Prov: PERRY SMITH Date: 1950 Primary Care Prov: PERRY SMITH CMRN: [id number] Room: [facility] SSN: [id number] IMAGING SERVICES Ordering Prov: N/A Interpretation MRI ANGIO HEAD WITHOUT CONTRAST 09/12/2007 Indication: Five family members with brain aneurysms. Technique: Kcws-eb-weohxg MRA sequence was performed as well assagittal [...] R/O COVID-19 05/17/2020 05/20/2020 05/20/2020 3:21 PM MID LEVEL GAME DESIGNER documented as of this encounter Care Teams Supervisor Laboratory Relationship Specialty Start Date End Date Perry Smith MD [address] [facility] [address] [place] [address] PCP - General 04/28/01 10/23/20 documented as of this encounter
--- OUTSIDE RECORDS SUMMARY | 2025-03-09 09:12 | XMS_ITS | Encounter Summary ---
Author Organization [facility] Address [address] [place] [address] Care Team Providers Care Reeling Operator Name Role Phone Michael Smith MD Primary Care Provider [phone] Encounter Details Date Type Department Care Team (Late st Contact Info) Description 10/22/2003 Outpatient Historical [facility] Internal Medicine [address] [place] [address] Michael Smith MD [address] [place] [address] Social History Tobacco Use Types Packs/Day Years Used Date Smoking Tobacco: Never Assessed Comments Unknown Sex and Gender Information Value Date Recorded Sex Assigned at Not on file Legal Sex Female 4:52 AM CHAIR CANER Gender Identity Not on file Sexual Orientation Not on file documented as of this encounter Plan of Treatment Not on file documented as of this encounter Visit Diagnoses Not on filedocumented in this encounter Additional Health Concerns Infection Onset Date Last Indicated Resolved Time R/O COVID-19 05/17/2020 05/20/2020 05/20/2020 3:21 PM CHAIR CANER documented as of this encounter Care Teams Reeling Operator Relationship Specialty Start Date End Date Michael Smith MD [address] [place] [address] PCP - General 04/28/01 10/23/20 documented as of this encounter
--- OUTSIDE RECORDS SUMMARY | 2025-03-09 09:12 | XMS_ITS | Encounter Summary ---
Author Organization [facility] Address [address] [facility] Attn: Epic Prelude ADT [place] [address] Care Team Providers Care Printing Equipment Mechanic Apprentice Name Role Phone Michael Smith MD Primary Care Provider [phone] Encounter Details Date Type Department Care Team (Late st Contact Info) Description 06/18/1993 Outpatient Historical Michael Smith MD [address] [place] [address] Social History Tobacco Use Types Packs/Day Years Used Date Smoking Tobacco: Never Assessed Comments Unknown Sex and Gender Information Value Date Recorded Sex Assigned at Not on file Legal Sex Female 4:52 AM SLITTER AND REWINDER MACHINE OPERATOR Gender Identity Not on file Sexual Orientation Not on file documented as of this encounter Plan of Treatment Not on file documented as of this encounter Visit Diagnoses Not on filedocumented in this encounter Additional Health Concerns Infection Onset Date Last Indicated Resolved Time R/O COVID-19 05/17/2020 05/20/2020 05/20/2020 3:21 PM SLITTER AND REWINDER MACHINE OPERATOR documented as of this encounter Care Teams Printing Equipment Mechanic Apprentice Relationship Specialty Start Date End Date Michael Smith MD [address] [place] [address] PCP - General 04/28/01 10/23/20 documented as of this encounter
--- OUTSIDE RECORDS SUMMARY | 2025-03-09 09:12 | XMS_ITS | Encounter Summary ---
Author Organization [facility] Address [address] [place] [address] Care Team Providers Care Manager Of Training And Development Name Role Phone Michael Smith MD Primary Care Provider [phone] Encounter Details Date Type Department Care Team (Latest Contact Info) Description 09/26/2004 Outpatient Historical HIS [facility] Jonel Mulligan MD [address] [facility] [address] [place] [address] SCREENING MAMM-MAILG NEOPL-OTHER (Primary Dx) Social History Tobacco Use Types Packs/Day Years Used Date Smoking Tobacco: Never Assessed Comments Unknown Sex and Gender Information Value Date Recorded Sex Assigned at Not on file Legal Sex Female 4:52 AM PHYSICS AND ASTRONOMY PROFESSOR Gender Identity Not on file Sexual Orientation Not on file documented as of this encounter Plan of Treatment Not on file documented as of this encounter Visit Diagnoses Diagnosis Other screening mammogram- Primary documented in this encounter Additional Health Concerns Infection Onset Date Last Indicated Resolved Time R/O COVID-19 05/17/2020 05/20/2020 05/20/2020 3:21 PM PHYSICS AND ASTRONOMY PROFESSOR documented as of this encounter Care Teams Manager Of Training And Development Relationship Specialty Start Date End Date Michael Smith MD [address] [place] [address] PCP - General 04/28/01 10/23/20 documented as of this encounter
--- OUTSIDE RECORDS SUMMARY | 2025-03-09 09:12 | XMS_ITS | Encounter Summary ---
Author Organization [employer] Address [address] [place] [address] Care Team Providers Care Financial Rep Name Role Phone Michael Smith MD Primary Care Provider [phone] Encounter Details Date Type Department Care Team (Late st Contact Info) Description 08/18/2007 Outpatient Historical [facility] Michael Smith MD [address] [place] [phone] Edema Social History Tobacco Use Types Packs/Day Years Used Date Smoking Tobacco: Never Assessed Comments Unknown Sex and Gender Information Value Date Recorded Sex Assigned at Not on file Legal Sex Female 4:52 AM INTERVENTIONAL PHYSICIAN Gender Identity Not on file Sexual Orientation Not on file documented as of this encounter Plan of Treatment Not on file documented as of this encounter Visit Diagnoses Diagnosis Edema documented in this encounter Additional Health Concerns Infection Onset Date Last Indicated Resolved Time R/O COVID-19 05/17/2020 05/20/2020 05/20/2020 3:21 PM INTERVENTIONAL PHYSICIAN documented as of this encounter Care Teams Financial Rep Relationship Specialty Start Date End Date Michael Smith MD [address] [place] [address] PCP - General 04/28/01 10/23/20 documented as of this encounter
--- OUTSIDE RECORDS SUMMARY | 2025-03-09 09:12 | XMS_ITS | Encounter Summary ---
Author Organization [facility] Address [address] [place] [address] Care Team Providers Care Digital Account Director Name Role Phone Perry Smith MD Primary Care Provider [phone] Encounter Details Date Type Department Care Team (Latest Contact Info) Description 07/16/2008 Outpatient Historical [facility] Carie Ken MD [address] [facility] [address] [place] [address] Other Screening Mammogram Social History Tobacco Use Types Packs/Day Years Used Date Smoking Tobacco: Never Comments No Sex and Gender Information Value Date Recorded Sex Assigned at Not on file Legal Sex Female 4:52 AM FLAG CAR DRIVER Gender Identity Not on file Sexual [...] PM CDT Narrative 07/18/2008 8:34 AM CDT [facility] [address] [place], [place] [address] Admit Date: 07/16/2008 ARABELLA MENDEZ Sex: F Admit Prov: CARIE KEN Date: 1950 Primary Care Prov: [facility] [id number] [facility] [id number] IMAGING SERVICES Ordering Prov: CARIE KEN Accession Number: [id number] Interpretation BILATERAL SCREENING DIGITAL MAMMOGRAMS WITH COMPUTER [...] [facility] Procedure Note Jenn Alvarez - 07/18/2008 [address] [address] [place], [place] [address] Admit Date: 07/16/2008 ARABELLA MENDEZ Sex: F Admit Prov: CARIE KEN Date: 1950 Primary Care Prov: PERRY SMITH CMRN: [id number] [facility] [id number] IMAGING SERVICES Ordering Prov: CARIE KEN Interpretation [...] R/O COVID-19 05/17/2020 05/20/2020 05/20/2020 3:21 PM FLAG CAR DRIVER documented as of this encounter Care Teams Digital Account Director Relationship Specialty Start Date End Date Perry Smith MD [address] [facility] [address] [place] [address] PCP - General 04/28/01 10/23/20 documented as of this encounter
--- OUTSIDE RECORDS SUMMARY | 2025-03-09 09:12 | XMS_ITS | Encounter Summary ---
Author Organization [facility] Address [address] [place] [address] Care Team Providers Care Aviation Manager Name Role Phone Michael Smith MD Primary Care Provider [phone] Encounter Details Date Type Department Care Team (Late st Contact Info) Description 06/06/[address] [facility] Internal Medicine [address] [place] [address] Michael Smith MD [address] [facility] [address] [place] [address] Social History Tobacco Use Types Packs/Day Years Used Date Smoking Tobacco: Never Assessed Comments Unknown Sex and Gender Information Value Date Recorded Sex Assigned at Not on file Legal Sex Female 4:52 AM PETROGRAPHER Gender Identity Not on file Sexual Orientation Not on file documented as of this encounter Progress Notes * Michael Smith MD - 09/21/2007 9:17 PM CDT TIME:09:59 am PATIENT`S HOME PHONE: PATIENT`S WORK PHONE: PATIENT`S INSURANCE: [employer] PPO WHO TOOK THE CALL: Sugey Ortega SECTION 1: REQUESTED ACTION va 06/06/07 at 09:59 am: MEDICATION REQUEST: * Michael Smith MD - 09/21/2007 9:17 PM CDT TIME:10:00 am PATIENT`S HOME PHONE: PATIENT`S WORK PHONE: PATIENT`S INSURANCE: [employer] PPO WHO TOOK THE CALL: Sugey Ortega [...] HOME PHONE: PATIENT`S WORK PHONE: PATIENT`S INSURANCE: [facility] P[facility] WHO TOOK THE CALL: Sugey [...] R/O COVID-19 05/17/2020 05/20/2020 05/20/2020 3:21 PM PETROGRAPHER documented as of this encounter Care Teams Aviation Manager Relationship Specialty Start Date End Date Michael Smith MD [address] [facility] [address] [place] [address] PCP - General 04/28/01 10/23/20 documented as of this encounter
--- OUTSIDE RECORDS SUMMARY | 2025-03-09 09:12 | XMS_ITS | Encounter Summary ---
Author Organization [facility] Address [address] [place] [address] Care Team Providers Care Deckhand Oyster Dredge Name Role Phone Michael Smith MD Primary Care Provider Encounter Details Date Type Department Care Team (Late st Contact Info) Description 11/11/2004 Outpatient Historical [facility] Internal Medicine [address] [place] [address] Michael Smith MD [address] [place] [address] Social History Tobacco Use Types Packs/Day Years Used Date Smoking Tobacco: Never Assessed Comments Unknown Sex and Gender Information Value Date Recorded Sex Assigned at Not on file Legal Sex Female 4:52 AM MANAGER ELECTRICAL Gender Identity Not on file Sexual Orientation Not on file documented as of this encounter Plan of Treatment Not on file documented as of this encounter Visit Diagnoses Not on filedocumented in this encounter Additional Health Concerns Infection Onset Date Last Indicated Resolved Time R/O COVID-19 05/17/2020 05/20/2020 05/20/2020 3:21 PM MANAGER ELECTRICAL documented as of this encounter Care Teams Deckhand Oyster Dredge Relationship Specialty Start Date End Date Michael Smith MD [address] [place] [address] PCP - General 04/28/01 10/23/20 documented as of this encounter
--- OUTSIDE RECORDS SUMMARY | 2025-03-09 09:12 | XMS_ITS | Encounter Summary ---
Author Organization [facility] Healthcare Address [address] [place] [address] Care Team Providers Care Printer Helper Name Role Phone Roxanne Werner MD Unavailable Ata Bronson DPM Unavailable Meir Ibrahim MD Primary Care Provider [phone] Encounter Details Date Type Department Care Team (Late st Contact Info) Description 01/17/2025 Results Follow-Up [employer] [address] [address] Roxanne Werner MD [address] [place] [address] [address] [employer] Social History Tobacco Use Types Packs/Day [...] on file Legal Sex Female 2:53 PM FERRYBOAT CAPTAIN Gender Identity Female 08/19/2020 7:43 PM CDT Sexual Orientation Straight 09/24/2020 8: 49 AM CDT 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
--- OUTSIDE RECORDS SUMMARY | 2025-03-09 09:12 | XMS_ITS | Encounter Summary ---
Author Organization [facility] Address [address] [place] [address] Care Team Providers Care Continuous Improvement Manager Name Role Phone Michael Smith MD Primary Care Provider [phone] Encounter Details Date Type Department Care Team (Late st Contact Info) Description 08/18/2007 Outpatient Historical [facility] Internal Medicine [address] [place] [address] Michael Smith MD [address] [place] [address] Social History Tobacco Use Types Packs/Day Years Used Date Smoking Tobacco: Never Assessed Comments Unknown Sex and Gender Information Value Date Recorded Sex Assigned at Not on file Legal Sex Female 4:52 AM TRUCK BRACER Gender Identity Not on file Sexual Orientation Not on file documented as of this encounter Plan of Treatment Not on file documented as of this encounter Visit Diagnoses Not on filedocumented in this encounter Additional Health Concerns Infection Onset Date Last Indicated Resolved Time R/O COVID-19 05/17/2020 05/20/2020 05/20/2020 3:21 PM TRUCK BRACER documented as of this encounter Care Teams Continuous Improvement Manager Relationship Specialty Start Date End Date Michael Smith MD [address] [place] [address] PCP - General 04/28/01 10/23/20 documented as of this encounter
--- OUTSIDE RECORDS SUMMARY | 2025-03-09 09:12 | XMS_ITS | Encounter Summary ---
Author Organization [facility] Address [address] [place] [address] Care Team Providers Care Melter Helper Name Role Phone Michael Smith MD Primary Care Provider [phone] Encounter Details Date Type Department Care Team (Late st Contact Info) Description 03/08/2006 Outpatient Historical [facility] Internal Medicine [address] [place] [address] Michael Smith MD [address] [place] [address] Social History Tobacco Use Types Packs/Day Years Used Date Smoking Tobacco: Never Assessed Comments Unknown Sex and Gender Information Value Date Recorded Sex Assigned at Not on file Legal Sex Female 4:52 AM COMMERCIAL ARTIST LETTERING Gender Identity Not on file Sexual Orientation Not on file documented as of this encounter Plan of Treatment Not on file documented as of this encounter Visit Diagnoses Not on filedocumented in this encounter Additional Health Concerns Infection Onset Date Last Indicated Resolved Time R/O COVID-19 05/17/2020 05/20/2020 05/20/2020 3:21 PM COMMERCIAL ARTIST LETTERING documented as of this encounter Care Teams Melter Helper Relationship Specialty Start Date End Date Michael Smith MD [address] [place] [address] PCP - General 04/28/01 10/23/20 documented as of this encounter
--- OUTSIDE RECORDS SUMMARY | 2025-03-09 09:12 | XMS_ITS | Clinical Summary ---
Author Organization [facility] Address [address] [place] [address] Care Team Providers Care Tinsmith Helper Name Role Phone Roxanne Werner MD Unavailable Ata Bronson DPM Unavailable [phone] Meir Ibrahim MD Primary Care Provider [phone] Allergies Active Allergy Reactions Criticality Noted Date [...] 07/12/2023 Assessment & Plan (07/14/2023 2:07 PM SENIOR SYSTEMS DEVELOPER): -chronic, stable -Discussed/ordered labs -continue on Compazine 10 mg every 6 hours as needed Vitamin B12 deficiency 07/12/2023 Assessment & Plan (01/17/2024 8:01 AM CDT): -chronic, stable -Discussed/ordered labs -continue on OTC vitamin B12 supplement daily Assessment & Plan (07/14/2023 2:08 PM SENIOR SYSTEMS DEVELOPER): -chronic, unknown, no data to review at this time to make an evaluation -Discussed/ordered labs -continue on OTC vitamin B12 supplement daily Vitamin D deficiency 07/12/2023 Assessment & Plan (01/17/2024 8:00 AM CDT): -chronic, stable -Discussed/ordered labs -continue on vitamin D3 supplement 5000 units daily Assessment & Plan (07/14/2023 2:08 PM SENIOR SYSTEMS DEVELOPER): -chronic, unknown, no data to review at this time to make an evaluation -Discussed/ordered labs -continue on vitamin D3 supplement 5000 units daily Chronic cough 01/27/2023 Assessment & Plan (01/19/2024 12:53 PM CDT): -chronic, stable -Discussed/ordered labs -patient reports she stopped taking Flonase -continue follow up with the ENT as needed Assessment & Plan (07/14/2023 2:04 PM SENIOR SYSTEMS DEVELOPER): -chronic, stable -Discussed/ordered labs -continue on Flonase [...] 01/27/2023 Assessment & Plan (07/14/2023 2:05 PM SENIOR SYSTEMS DEVELOPER): -chronic, stable -Discussed/ordered labs -continue on Flonase 2 sprays per nostril daily and meclizine 12.5 mg 3 times daily as needed -continue seeing ENT Assessment & Plan (03/19/2023 9:11 AM SENIOR SYSTEMS DEVELOPER): Continue the Nasal saline and Flonase Call [...] daily Assessment & Plan (07/14/2023 2:03 PM SENIOR SYSTEMS DEVELOPER): -chronic, stable -Discussed/ordered labs -continue seeing Cardiology -continue seeing Nephrology -continue on Eliquis 5 mg every 12 hours, furosemide 20 mg daily, metoprolol 50 mg twice daily, nifedipine XL 60 mg daily, potassium ER 20 mEq twice daily, Rosuvastatin 5 mg daily Assessment & Plan (05/04/2023 3:52 PM SENIOR SYSTEMS DEVELOPER): Stable. Blood pressure is well controlled today. Last GFR was 44. Recheck BMP today. Will refer back to Nephrology Assessment & Plan (10/21/2022 8:56 AM CDT): Blood pressure well controlled. gfr 40. Will continue to monitor. Recheck bmp in 3 months. Diastolic dysfunction 10/21/2022 Overview (10/21/2022): Monitor for SOB, fatigue, weight gain, etc. Assessment & Plan (07/14/2023 2:02 PM SENIOR SYSTEMS DEVELOPER): -chronic, stable -Discussed/ordered labs -continue seeing Cardiology -continue on Eliquis 5 mg every 12 hours, furosemide 20 mg daily, metoprolol 50 mg twice daily, nifedipine XL 60 mg daily, potassium ER 20 mEq twice daily, Rosuvastatin 5 mg daily Assessment & Plan (05/04/2023 3:53 PM SENIOR SYSTEMS DEVELOPER): History of diastolic dysfunction. Patient follows with [...] daily Assessment & Plan (07/14/2023 2:03 PM SENIOR SYSTEMS DEVELOPER): -chronic, stable -Discussed/ordered labs -continue seeing Cardiology [...] 06/18/2022 Assessment & Plan (07/14/2023 2:06 PM SENIOR SYSTEMS DEVELOPER): -chronic, stable -Discussed/ordered labs -continue seeing Cardiology -continue on Eliquis 5 mg every 12 hours, furosemide 20 mg daily, metoprolol 50 mg twice daily, nifedipine XL 60 mg daily, potassium ER 20 mEq twice daily, Rosuvastatin 5 mg daily Assessment & Plan (06/18/2022 11:11 AM SENIOR SYSTEMS DEVELOPER): HPI: Condition is not at/near goal swelling [...] 06/18/2022 Assessment & Plan (06/18/2022 11:14 AM SENIOR SYSTEMS DEVELOPER): HPI: Condition is not at/near goal A&P: [...] 04/22/2022 Assessment & Plan (07/14/2023 2:05 PM SENIOR SYSTEMS DEVELOPER): -chronic, stable -Discussed/ordered labs -continue on cyclobenzaprine 3 times daily as needed and OTC muscle rub Assessment & Plan (06/18/2022 11:12 AM SENIOR SYSTEMS DEVELOPER): HPI: Condition is not at/near goal A&P: Discussed/ordered labs, encouraged healthy, low carbohydrate lifestyle and at least 150min/week of exercise. Pt has not been using Voltaren gel. Pt denies stretching or doing other home remedies to help her back We will do xray lumbar spine today Physical therapy Muscle rubs such as biofreeze/icy hot Massage may help Assessment & Plan (04/22/2022 8:21 AM SENIOR SYSTEMS DEVELOPER): Does not wish to seek further treatment, [...] in your mouth on an boom like [employer] Hand Measurements: A fist or cupped hand [...] in your mouth on an boom like [employer] Hand Measurements: A fist or cupped hand [...] cup. Assessment & Plan (07/14/2023 2:05 PM SENIOR SYSTEMS DEVELOPER): -chronic, stable goal BMI <30 Healthy, high-protein, lower carbohydrate, lower fat lifestyle and exercise for 150min/week recommended Recommend tracking everything you put in your mouth on an boom like [employer] Hand Measurements: A fist or cupped hand [...] cup. Assessment & Plan (06/18/2022 11:13 AM SENIOR SYSTEMS DEVELOPER): HPI: Condition is stable goal BMI <30 A&P: Healthy, high-protein, lower carbohydrate, lower fat lifestyle and exercise for 150min/week recommended Recommend tracking everything you put in your mouth on an boom like [employer] Lower carb substitutions: Aldi carries a zero [...] in much longer they will become mushy [place] and/or coconut flour instead of regular flour [...] pork rinds For yogurt, try Two Good vincentian yogurt Use [employer]orio for recipe ideas. Type [...] cup. Assessment & Plan (04/22/2022 8:20 AM SENIOR SYSTEMS DEVELOPER): BMI Follow-up includes: exercise counseling. Assessment & Plan (10/16/2021 11:09 AM CDT): HPI: Condition is improving, but not at goal goal BMI <30 A&P: Healthy, high-protein, lower carbohydrate, lower fat lifestyle and exercise for 150min/week recommended Recommend tracking everything you put in your mouth on an boom like [employer] Lower carb substitutions: Aldi carries a zero [...] in much longer they will become mushy [place] and/or coconut flour instead of regular flour [...] pork rinds For yogurt, try Two Good vincentian yogurt Use Gregorio for recipe ideas. Type [...] cup. Assessment & Plan (04/08/2021 9:43 AM SENIOR SYSTEMS DEVELOPER): HPI: Condition is not at/near goal goal BMI <30 A&P: Healthy, high-protein, lower carbohydrate, lower fat lifestyle and exercise for 150min/week recommended Substitutions: Recommend tracking everything you put in your mouth on an boom like [employer] or [employer] Aldi carries a zero net carb bread [...] in much longer they will become mushy [place]re[place] and/or coconut flour instead of regular flour [...] pork rinds For yogurt, try Two Good vincentian yogurt Use Pinterest for recipe ideas. Type [...] daily Assessment & Plan (07/14/2023 2:03 PM SENIOR SYSTEMS DEVELOPER): -chronic, stable -Discussed/ordered labs -continue seeing Cardiology -continue on Eliquis 5 mg every 12 hours, furosemide 20 mg daily, metoprolol 50 mg twice daily, nifedipine XL 60 mg daily, potassium ER 20 mEq twice daily, Rosuvastatin 5 mg daily Assessment & Plan (08/06/2022 8:58 AM CDT): Stable. Continue eliquis, metoprolol, Assessment & Plan (04/22/2022 8:01 AM SENIOR SYSTEMS DEVELOPER): Stable. Managed by cardiology. Remains on eliquis [...] Werner Assessment & Plan (04/08/2021 8:57 AM SENIOR SYSTEMS DEVELOPER): HPI: Condition is stable A&P: Discussed/ordered labs, [...] daily Assessment & Plan (07/14/2023 2:03 PM SENIOR SYSTEMS DEVELOPER): -chronic, stable -Discussed/ordered labs -continue seeing Cardiology [...] Werner Assessment & Plan (04/08/2021 8:55 AM SENIOR SYSTEMS DEVELOPER): HPI: Condition is stable A&P: Discussed/ordered labs, [...] addition of loop diuretic. Current use of detention anticoagulation 021 Assessment & Plan (01/17/2024 8:01 AM CDT): -chronic, stable -Discussed/ordered labs -continue on Eliquis 5 mg every 12 hours -continue seeing Cardiology Assessment & Plan (07/14/2023 2:05 PM SENIOR SYSTEMS DEVELOPER): -chronic, stable -Discussed/ordered labs -continue on Eliquis 5 mg every 12 hours -continue seeing Cardiology Assessment & Plan (10/16/2021 11:10 AM CDT): HPI: Condition is stable A&P: Discussed/ordered labs, encouraged healthy, low carbohydrate lifestyle and at least 150min/week of exercise, continue on eliquis 5mg every 12 hours Continue f/u with cardiology Dr. Werner every 6 mo Assessment & Plan (04/08/2021 9:24 AM SENIOR SYSTEMS DEVELOPER): HPI: Condition is stable A&P: Discussed/ordered labs, encouraged healthy, low carbohydrate lifestyle and at least 150min/week of exercise, continue on Eliquis 5 mg twice daily continue follow-up with cardiology-Dr. Elizabeth Assessment & Plan (02/25/2021 11:14 AM CDT): Patient has had no major bleeding events, she will continue with long-term anticoagulation. Hypokalemia 06/06/2020 Assessment & Plan (07/14/2023 2:03 PM SENIOR SYSTEMS DEVELOPER): -chronic, stable -Discussed/ordered labs -continue seeing Cardiology -continue on Eliquis 5 mg every 12 hours, furosemide 20 mg daily, metoprolol 50 mg twice daily, nifedipine XL 60 mg daily, potassium ER 20 mEq twice daily, Rosuvastatin 5 mg daily Assessment & Plan (05/04/2023 3:54 PM SENIOR SYSTEMS DEVELOPER): Received critical results after patient left. BMP [...] exercise Assessment & Plan (07/14/2023 2:07 PM SENIOR SYSTEMS DEVELOPER): -chronic, stable -Discussed/ordered labs -recommend healthy low carb diet and increase exercise Assessment & Plan (05/04/2023 3:52 PM SENIOR SYSTEMS DEVELOPER): Will recheck hemoglobin A1c today. Recommended healthy diet, incorporating fruits, vegetables and adequate amounts of water along with mild-moderate daily exercise as tolerated; Assessment & Plan (08/06/2022 9:05 AM CDT): Had A1c drawn in June and labs A1c was 6.3%. Recommend low carb diet. Continue her exercise habits. Will continue to monitor Assessment & Plan (04/22/2022 8:01 AM SENIOR SYSTEMS DEVELOPER): Stable. Recommended healthy diet, incorporating fruits, vegetables and adequate amounts of water along with mild-moderate daily exercise as tolerated; Assessment & Plan (10/16/2021 7:24 AM CDT): HPI: Condition is stable A&P: Discussed/ordered labs, encouraged healthy, low carbohydrate lifestyle and at least 150min/week of exercise Assessment & Plan (04/08/2021 7:19 AM SENIOR SYSTEMS DEVELOPER): HPI: Condition is stable A&P: Discussed/ordered labs, encouraged healthy, low carbohydrate lifestyle and at least 150min/week of exercise History of adenomatous polyp of colon 04/07/2016 Overview (04/08/2021): Last colonoscopy 07/[address] Noguera (GI) Repeat in 5 yrs. Assessment & Plan (01/17/2024 8:01 AM CDT): Last colonoscopy completed 07/15/2020 Repeat in 5 years Assessment & Plan (07/14/2023 2:06 PM SENIOR SYSTEMS DEVELOPER): Last colonoscopy completed 07/15/2020 Repeat in 5 years Assessment & Plan (10/16/2021 7:24 AM CDT): Last colonoscopy 07/[address] Noguera (GI), repeat in 5 yrs. Assessment & Plan (04/08/2021 7:20 AM SENIOR SYSTEMS DEVELOPER): Last colonoscopy 07/[address] Noguera (GI) [...] normal. Assessment & Plan (07/14/2023 2:02 PM SENIOR SYSTEMS DEVELOPER): -chronic, stable -Discussed/ordered labs -continue seeing Cardiology [...] Werner Assessment & Plan (04/08/2021 7:21 AM SENIOR SYSTEMS DEVELOPER): HPI: Condition is stable A&P: Discussed/ordered labs, encouraged healthy, low carbohydrate lifestyle and at least 150min/week of exercise, continue on Furosemide 20 mg daily, Metoprolol tartrate 25 mg twice daily, nifedipine 60 mg Daily, potassium chloride 10 mEq twice daily, rosuvastatin 5 mg daily Urinary incontinence 07/22/2009 Assessment & Plan (07/14/2023 2:07 PM SENIOR SYSTEMS DEVELOPER): -chronic, stable -Discussed/ordered labs -continue on oxybutynin 5 mg twice daily Assessment & Plan (10/16/2021 11:18 AM CDT): HPI: Condition is not controlled A&P: Discussed/ordered labs, encouraged healthy, low carbohydrate lifestyle and at least 150min/week of exercise, stop taking the oxybutynin 5mg twice daily Trial on myrbetriq 25mg daily Assessment & Plan (04/08/2021 9:27 AM SENIOR SYSTEMS DEVELOPER): HPI: Condition is stable, she reports that [...] daily Assessment & Plan (07/14/2023 2:02 PM SENIOR SYSTEMS DEVELOPER): -chronic, stable -Discussed/ordered labs -continue seeing Cardiology [...] management Assessment & Plan (04/22/2022 8:01 AM SENIOR SYSTEMS DEVELOPER): Stable/ Improved. Blood pressure is adequately controlled [...] Werner Assessment & Plan (04/08/2021 7:21 AM SENIOR SYSTEMS DEVELOPER): HPI: Condition is stable A&P: Discussed/ordered labs, [...] time. Assessment & Plan (07/16/2020 12:26 PM SENIOR SYSTEMS DEVELOPER): Patient's home blood pressures ranging 165-185/91-98. Will keep patient on Metoprolol 50mg BID since patient has not began the medication with the change (did not see [employer] message). Denies feeling symptomatic. Patient to keep home BP readings and bring to next follow up in 2 weeks with her home BP machine. Pt to let us know if she feels any adverse reaction to increasing the Metoprolol dose. Assessment & Plan (07/05/2020 1:28 PM SENIOR SYSTEMS DEVELOPER): BP journal until next follow up (1-2 [...] daily Assessment & Plan (07/14/2023 2:06 PM SENIOR SYSTEMS DEVELOPER): -chronic, stable -Discussed/ordered labs -continue on levothyroxine [...] day Assessment & Plan (04/22/2022 8:00 AM SENIOR SYSTEMS DEVELOPER): Lipid abnormalities are stable. Pharmacotherapy as ordered. [...] day. Assessment & Plan (04/08/2021 7:19 AM SENIOR SYSTEMS DEVELOPER): HPI: Condition is stable A&P: Discussed/ordered labs, [...] day. Assessment & Plan (07/05/2020 1:29 PM SENIOR SYSTEMS DEVELOPER): Most recent thyroid function showed normalcy Will continue levothyroxien at 112 mcg daily Resolved Problems Problem Noted Date Diagnosed Date Resolved Date Tendonitis, Achilles, left 05/04/2023 0 07/12/2023 Assessment & Plan (05/04/2023 3:53 PM SENIOR SYSTEMS DEVELOPER): Refer to podiatry for Achilles tendonitis Body mass index (BMI) 31.0-31.9, adult 02/09/2023 07/14/2023 Assessment & Plan (02/09/2023 9:26 AM CDT): BMI Follow-up includes: nutrition counseling. Stage 3a chronic kidney disease 02/09/2023 07/14/2023 Assessment & Plan (05/04/2023 3:55 PM SENIOR SYSTEMS DEVELOPER): Referred back to Nephrology. However today her [...] tomatoes, oranges, milk, dark kathi and chocolate. [place] juice, citrus juices, and tomato juice are [...] (07/08/2020): Added automatically from request for surgery [id number] Neuropathy 07/05/2020 07/12/2023 Overview (07/05/2020): noted during [...] podiatry Assessment & Plan (04/08/2021 9:25 AM SENIOR SYSTEMS DEVELOPER): HPI: Condition is A&P: Discussed/ordered labs, encouraged [...] Team Description 02/21/2025 1:10 PM CDT Lab [address] [address] PAF (paroxysmal atrial fibrillation) 02/21/2025 Results Follow-Up [place] [facility] Psychologist [address] [place] [phone] Laura Machado MA Protime-INR 02/20/2025 [facility] Post Discharge Follow up phone call [facility] Emergency Department [address] [place] [phone] Dawn Bustamante RN 02/14/2025 Results Follow-Up [facility] [place] [facility] [address] [place] [phone] Roxanne Werner MD Protime-INR, Basic metabolic panel, eGFR 02/12/2025 12:55 PM CDT Lab [address] [address] 02/12/2025 11:55 AM CDT Lab [address] [address] PAF (paroxysmal atrial fibrillation); Primary hypertension; Chronic left-sided low back pain without sciatica; Hyperlipidemia, unspecified hyperlipidemia type; Chronic diastolic (congestive) heart failure 02/12/2025 Anticoagulation Visit [facility] [place] [facility] [facility] [address] [place] [phone] Laura Machado MA Paroxysmal atrial fibrillation (HCC) (Primary Dx) 02/12/2025 Results Follow-Up [facility] [place] [facility] [facility] Psych[facility] [address] [place] [phone] Laura Machado MA Protime-INR 02/09/2025 9:27 PM CDT - 02/10/2025 1:12 AM CDT Emergency [facility] Emergency Department [address] [place] [phone] Yulissa Mccain MD Coagulopathy (Primary Dx) Discharge Disposition: Discharge to home or self care 02/09/2025 3:10 PM CDT Lab [address] [address] PAF (paroxysmal atrial fibrillation) 01/26/2025 Telephone [facility] [place] [facility] [facility] [address] [place] [phone] Emily Romero 01/22/2025 11:54 AM CDT - 01/22/2025 11:59 PM CDT Hospital Encounter [facility] Diagnostic Imaging [address] [place] [phone] Abdominal pain, unspecified abdominal location; Urinary tract infection without hematuria, site unspecified Discharge Disposition: Discharge to home or self care 01/22/2025 11:35 AM CDT Lab [address] [address] 01/18/2025 Anticoagulation Visit [facility] [place] [facility] Psych[facility] [address] [place] [phone] Laura Machado MA Paroxysmal atrial fibrillation (HCC) (Primary Dx) 01/17/2025 10:15 AM CDT Office Visit [facility] [place] [facility] [address] [place] [phone] Roxanne Werner MD Longstanding persistent atrial fibrillation (HCC) (Primary Dx) 01/17/2025 Results Follow-Up [facility] [place] [facility] [facility] Psych[facility] [address] [place] [phone] Roxanne Werner MD Protime-INR 01/17/2025 Orders Only [facility] [place] [facility] [facility] [address] [place] [address] [phone] Roxanne Werner MD Primary hypertension (Primary Dx); Chronic left-sided low back pain without sciatica; Hyperlipidemia, unspecified hyperlipidemia type; Chronic diastolic (congestive) heart failure 01/12/2025 2:05 PM CDT Lab [address] [address] PAF (paroxysmal atrial fibrillation) 01/05/2025 Telephone [facility] [place] [facility] Psych[facility] [address] [place] [phone] Laura Machado MA Home INR Testing 01/05/2025 Orders Only [facility] Primary Care at [address] [phone] Karolyn Evans NP Screening mammogram for breast cancer (Primary Dx) 01/05/2025 Results Follow-Up [facility] Primary Care at [address] [phone] Karolyn Evans NP Screening Mammogram Bilateral W Gustavo 01/04/2025 8:49 AM CDT - 01/04/2025 11:59 PM CDT Hospital Encounter [facility] Imaging and Radiology [address] [place] [phone] Breast cancer screening by mammogram Discharge Disposition: Discharge to home or self care 01/01/2025 9:35 AM CDT Lab [address] [address] PAF (paroxysmal atrial fibrillation) 01/01/2025 Results Follow-Up [facility] [facility] Psych[facility] [address] [place] [phone] Laura Machado MA Protime-INR 12/26/2024 7:43 PM CDT - 12/27/2024 8:31 AM CDT Emergency [facility] Emergency Department [address] [place] [phone] Calixto Prince MD Nonintractable headache, unspecified chronicity pattern, unspecified headache type (Primary Dx); Hypertension, unspecified type Discharge Disposition: Discharge to home or self care 12/20/2024 Results Follow-Up [facility] [place] [facility] Psych[facility] [address] [place] [phone] Roxanne Werner MD Lipid panel 12/18/2024 2:25 PM CDT Lab [address] [address] Aortic valve stenosis, etiology of cardiac valve disease unspecified 12/08/2024 Anticoagulation Visit [facility] [place] [facility] [facility] Psychologist [address] [place] [address] [address] [place] [phone] Laura Machado MA Paroxysmal atrial fibrillation (HCC) (Primary Dx) from Last 3 Months Immunizations Immunization Administration [...] screen COLONOSCOPY 07/15/2020 repeat screening JOINT REPLACEMENT 2014-15 BLADDER SURGERY 05/10/2018 - 05/09/2019 Medical History [...] Wanda Cotton Kidney disease Sister 3 Kenyatta ReneeNeil Endometrial cancer Neg Hx Ovarian cancer Neg [...] file Legal Sex Female 2:53 PM SENIOR SYSTEMS DEVELOPER Gender Identity Female 08/19/2020 7:43 PM [...] 08/2023, 05/04/2023, Additional history exists Covid-19 Vaccine (2024-06 [...] Additional history exists Lipid Panel 12/18/2025 12/18/2024, 01/2024, 07/12/2023, Additional history exists eGFR 02/12/2026 02/12/2025, 07/2024, 12/26/2024, Additional history exists DTaP/Tdap/Td Vaccine [...] stenosis, etiology of cardiac valve disease unspecified HEMOGLOBIN A1C Routine 01/17/2024 11:43 AM CDT Prediabetes DEXA AXIAL SKELETON BONE DENSITY 1 OR MORE SITES Schedule Routine, Read Routine (OP Routine) 07/28/2023 10:21 AM CDT Screening for osteoporosis Asymptomatic menopausal state HM HEPATITIS C SCREENING Routine 01/29/2022 COLONOSCOPY 07/15/2020 11:52 AM SENIOR SYSTEMS DEVELOPER from Last 3 Months or Most Recently [...] CDT 02/21/2025 1:19 PM CDT Narrative KEREN - 02/21/2025 1:59 PM CDT Patient is just starting on warfarin and will have additional lab that need drawn. us Roxanne Werner MD LAB BLOOD ORDERABLES F inal Result KEREN [id number] [address] Department of Laboratories [place] [address] * eGFR (02/12/2025 2:30 PM CDT) [...] MD LAB BLOOD ORDERABLES F inal Result [facility] [address] [address] [place] [address] * Basic metabolic panel (02/12/2025 2:30 PM CDT) Sodium 142 135 - 145 mmol/L Potassium, pl 3.9 3.3 - 4.9 mmol/L [facility] Comment:Hemolysis present. R esults may be affected. Chloride 102 97 - 110 mmol/L [facility] CO2 25 22 - 32 mmol/L [facility] Anion gap 15 2 - 15 mmol/L [facility] BUN 10 6 - 25 mg/dL [facility] Creatinine 0.94 0.60 - 1.10 mg/dL [facility] Glucose 180 70 - 199 mg/dL [facility] Comment: Interpretive Data Fasting glucose >/= 126 [...] classification and Diagnosis of Diabetes Diabetes Care 2022; 46: S19-S40. Current interpretive data was last revised 2022. Calcium 9.7 8.5 - 10.3 mg/dL KEREN Blood 02/12/2025 2:30 PM CDT 02/12/2025 2:30 PM CDT Roxanne Werner MD LAB BLOOD ORDERABLES F inal Result Performing Organization Address City/[facility] Co de Phone Number KEREN [phone] [place] [address] * (ABNORMAL) Protime-INR (02/12/2025 12:22 PM CDT) PT 23.7(H) 10.2 - 13.5 sec INR 2.13(H) 0.90 - 1.20 KEREN Comment: Interpretive data [...] ORDERABLES F inal Result Performing Organization Address City/[facility]/ZIP Co de Phone Number KEREN GAMEZ [phone] [place] [address] * eGFR (02/09/2025 8:18 PM [...] Mccain MD LAB BLOOD ORDERABLES nal Result [facility] [address] [address] [place] [address] * (ABNORMAL) Differential, auto (02/09/2025 8:18 PM CDT) Neutrophil abs 4.02 1.50 - 6.50 K/cumm Imm gran abs 0.02 0.00 - 0.10 K/cumm [facility] Lymphocyte abs 1.85 0.80 - 3.30 K/cumm [facility] Monocyte abs 0.94(H) 0.20 - 0.80 K/cumm [facility] Eosinophil abs 0.07 0.00 - 0.50 K/cumm [facility] Basophil abs 0.02 0.00 - 0.10 K/cumm [facility] Neutrophil pct 58.1 % [facility] Comment: Interpretive Data Percent cell count reference ranges are not reported, since discordance with absolute values may lead to misinterpretation of CBC data. Current Interpretive Data was last revised on 2017. Imm gran pct 0.3 % KEREN Comment: Interpretive Data Percent cell count reference ranges are not reported, since discordance with absolute values may lead to misinterpretation of CBC data. Current Interpretive Data was last revised on 2017. Lymphocyte pct 26.7 % [facility] Comment: Interpretive Data Percent cell count reference ranges are not reported, since discordance with absolute values may lead to misinterpretation of CBC data. Current Interpretive Data was last revised on 2017. Monocyte pct 13.6 % [facility] Comment: Interpretive Data Percent cell count reference ranges are not reported, since discordance with absolute values may lead to misinterpretation of CBC data. Current Interpretive Data was last revised on 2017. Eosinophil pct 1.0 % [facility] Comment: Interpretive Data Percent cell count reference ranges are not reported, since discordance with absolute values may lead to misinterpretation of CBC data. Current Interpretive Data was last revised on 2017. Basophil pct 0.3 % [facility] Comment: Interpretive Data Percent cell count reference ranges are not reported, since discordance with absolute values may lead to misinterpretation of CBC data. Current Interpretive Data was last revised on 2017. Blood 02/09/2025 8:18 PM CDT 02/09/2025 8:28 PM CDT Yulissa Mccain MD LAB BLOOD ORDERABLES Replaced by [facility] Result [facility] [id number] [address] [place] [address] * CBC with auto differential (02/09/2025 8:18 PM CDT) WBC 6.92 3.80 - 9.90 K/cumm Hgb 13.5 11.9 - 15.5 g/dL [facility] Hct 41.8 35.6 - 45.5 % [facility] Plt 301 150 - 400 K/cumm [facility] MPV 10.8 9.1 - 12.3 fL [facility] RBC 4.94 3.90 - 5.20 M/cumm [facility] MCV 84.6 81.3 - 96.4 fL [facility] MCH 27.3 27.1 - 33.3 pg [facility] MCHC 32.3 32.3 - 35.7 g/dL [facility] RDW CV 14.9 11.1 - 14.9 % [facility] RDW SD 45.7 35.7 - 48.1 fL [facility] NRBC abs 0.00 0.00 - 0.01 K/cumm [facility] Blood Venous blood specimen / Unknown 02/09/2025 8:18 PM CDT 02/09/2025 8:28 PM CDT Yulissa Mccain MD LAB BLOOD ORDERABLES Fi nal Result Performing Organization Address [facility] Co de Phone Number KEREN [phone] [place] [address] * (ABNORMAL) Protime-INR (02/09/2025 8:18 PM CDT) PT 69.5(H) 10.2 - 13.5 sec Comment:Critical result call ed to and read back by Jeannie Asif (RN _) on 02/09/2025 21:39:36 CDT _ to Bushra Quijano _. INR 6.38(C) 0.90 - 1.20 [facility] Comment: Critical result called to and read [...] ORDERABLES Fi nal Result Performing Organization Address City/[facility]/ZIP Co de Phone Number KEREN [phone] [address] Department [employer] [place], [place] [id number] * Comprehensive metabolic panel (02/09/2025 8:18 PM [...] - 45 Units/L [facility] Blood 02/09/2025 8:1 8 PM CDT 02/09/2025 8:28 PM CDT us Yulissa Mccain MD LAB BLOOD ORDERABLES Fi nal Result KEREN GAMEZ [address] [address] Department of Laboratories [place] [address] * ECG 12 lead (02/09/2025 8:08 PM CDT) 02/09/2025 8:08 PM CDT Narrative [facility] - 02/10/2025 8:35 AM CDT Vent Rate: 61 bpm RR Interval: 971 msec MA Interval: 0 msec QRS Duration: 93 msec QT Interval: 374 msec QTC Interval: 378 msec P-R-T [place]: 0 - -9 - 62 degrees IMPRESSION: ATRIAL FIBRILLATION MODERATE VOLTAGE CRITERIA FOR LVH, CONSIDER NORMAL VARIANT [MEETS CRITERIA IN ONE OF: R(aVL), S(V1), R(V5), R(V5/V6)+S(V1)] NONSPECIFIC T-WAVE ABNORMALITY ABNORMAL RHYTHM ECG NO CHANGE FROM PREVIOUS TRACING NOTED Electronically Signed By: Brenden Gannon MD us Yulissa Mccain MD ECG ORDERABLES Final R esult [facility] * (ABNORMAL) Protime-INR (02/09/2025 3:50 PM CDT) [...] BLOOD ORDERABLES F inal Result KEREN GAMEZ [address] [place] [address] * XR KUB (01/22/2025 12:17 PM CDT) [...] Lymphocyte abs 1.59 0.80 - 3.30 K/cumm [facility] Monocyte abs 0.67 0.20 - 0.80 K/cumm [facility] Eosinophil abs 0.02 0.00 - 0.50 K/cumm [facility] Basophil abs 0.03 0.00 - 0.10 K/cumm [facility] Neutrophil pct 64.1 % [facility] Comment: Interpretive Data Percent cell count reference [...] on 2017. Monocyte pct 10.3 % [facility] Comment: Interpretive Data Percent [...] MD LAB BLOOD ORDERABLES Final Re sult [facility] [address] [place] [address] * (ABNORMAL) Urinalysis reflex to microscopic and culture Urine (01/22/2025 11:38 AM CDT) Color, ur Yellow Yellow Clarity, ur Clear Clear [facility] Specific gravity, ur 1.009 1.003 - 1.030 [facility] pH, urine 7.0 [facility] Comment: Interpretive Data U rine pH is affected by diet, medications, systemic acid-base disturbances, and renal tubular function. pH may affect urinary stone formation. For example, urine pH below 6.0 may help reduce the tendency for calcium phosphate stones and pH greater than 6.0 may reduce the tendency for uric acid stone formation. Source: [facility] Current Interpretive Data was last revised [...] for microscopic UA and culture not met. [facility] Urine 01/22/2025 11:3 8 AM CDT 01/22/2025 11:38 AM CDT us Meir Ibrahim MD LAB MICROBIOLOGY - GENERAL OR DERABLES Final Result [facility] [address] [place] [address] * (ABNORMAL) CBC with auto differential (01/22/2025 11:38 AM CDT) WBC 6.53 3.80 - 9.90 K/cumm Hgb 14.7 11.9 - 15.5 g/dL [facility] Hct 46.1(H) 35.6 - 45.5 % [facility] Plt 343 150 - 400 K/cumm [facility] MPV 10.6 9.1 - 12.3 fL [facility] RBC 5.41(H) 3.90 - 5.20 M/cumm [facility] MCV 85.2 81.3 - 96.4 fL [facility] MCH 27.2 27.1 - 33.3 pg [facility] MCHC 31.9(L) 32.3 - 35.7 g/dL [facility] RDW CV 14.4 11.1 - 14.9 % [facility] RDW SD 45.0 35.7 - 48.1 fL [facility] NRBC abs 0.00 0.00 - 0.01 K/cumm [facility] Blood 01/22/2025 11:3 8 AM CDT 01/22/2025 11:38 AM CDT Meir Ibrahim MD LAB BLOOD ORDERABLES Final Re sult Performing Organization Address [facility] Co de Phone Number KEREN GAMEZ [address] [address] [place] [address] * (ABNORMAL) Protime-INR (01/12/2025 3:07 PM CDT) PT 20.2(H) 10.2 - 13.5 sec INR 1.81(H) 0.90 - 1.20 KEREN GAMEZ Comment: Interpretive [...] ORDERABLES F inal Result Performing Organization Address [facility] Co de Phone Number KEREN GAMEZ [phone] [place] [address] * Screening Mammogram Bilateral W Gustavo (01/04/2025 [...] LAB BLOOD ORDERABLES F inal Result KEREN [address] [address] [place] [address] * CT Head W Contrast (12/27/2024 4:36 [...] artery likely related to origin of bilateral TRADES HELPER; however, possibility of vertebrobasilar vasospasm not completely excluded but considered less likely. 4. Major dural venous sinuses are visualized patent. Stat report by [facility] Electronically signed by: Bartolome Mcintyre M.D. Narrative [...] well aerated. Vasculature: The vessels of the nffrwx-ws-Ebvxol are patent, without identified aneurysm. Bilateral vertebral arteries and basilar artery are small in caliber. Bilateral TRADES HELPER demonstrates origin. Atherosclerotic changes of intracranial carotid [...] well aerated. Vasculature: The vessels of the otjrez-sn-Fmdwcg are patent, without identified aneurysm. Bilateral vertebral arteries and basilar artery are small in caliber. Bilateral TRADES HELPER demonstrates origin. Atherosclerotic changes of intracranial carotid artery segments. Veins: Major dural venous sinuses are visualized patent. IMPRESSION: 1. No acute hemorrhage. 2. Cerebral volume loss and white matter changes as described above. 3. No identified vascular occlusion or aneurysm. Small caliber vertebral arteries and basilar artery likely related to origin of bilateral TRADES HELPER; however, possibility of vertebrobasilar vasospasm not completely excluded but considered less likely. 4. Major dural venous sinuses are visualized patent. Stat report by [facility] Electronically signed by: Bartolome Mcintyre M.D. Ayad Gonsalez MD IMG CT PROCEDURES Fin al Result * (ABNORMAL) Troponin T high-sensitivity 4-hour (12/27/2024 12:25 AM CDT) Pathologist [facility] Trop T hs 97(H) <=14 ng/L Comment: Interpretive Data For further hscTnT resources including the diagnostic algorithm and an aid in interpretation, copy and paste this link: https://nrl.testcatalog.org/show/hsTrop Current Interpretive Data last revised 2020. Trop T hs pct delta -6 % [facility] Trop T hs interp Equivocal [facility] Blood 12/27/2024 12:2 5 AM CDT 12/27/2024 1:01 AM CDT us Calixto Prince MD LAB BLOOD ORDERABLES Yessica payan Result [facility] [address] [place] [address] * (ABNORMAL) Protime-INR (12/27/2024 12:25 AM CDT) Pathologist [facility] PT 16.1(H) 10.2 - 13.5 sec INR 1.43(H) 0.90 - 1.20 [facility] Comment: Interpretive data Oral anticoagulant therapeutic ranges: Venous thromboembolism prophylaxis or treatment: 2.0-3.0 CARDIOLOGY Standard range: 2.0-3.0 High-intensity range: 2.5-3.5 Refer to indication-specific guidelines for appropriate target ranges for prosthetic heart valve replacement. Current interpretive data was last revised on 2019. Blood 12/27/2024 12:2 5 AM CDT 12/27/2024 12:38 AM CDT Calixto Prince MD LAB BLOOD ORDERABLES Yessica l Result KEREN GAMEZ [address] [place] [address] * (ABNORMAL) Troponin T high-sensitivity 2-hour (12/26/2024 10:46 PM CDT) Trop T hs 94(H) <=14 ng/L Comment: Interpretive Data For further hscTnT resources including the diagnostic algorithm and an aid in interpretation, copy and paste this link: https://nrl.testcatalog.org/show/hsTrop Current Interpretive Data last revised 2020. Trop T hs pct delta -9 % KEREN Trop T hs interp Equivocal KEREN Blood 12/26/2024 10:4 6 PM CDT 12/26/2024 10:52 PM CDT Calixto Prince MD LAB BLOOD ORDERABLES Yessica l Result ANSELMOMARIAMA GAMEZ [address] [address] [place] [address] * CT Head WO Contrast (12/26/2024 9:45 PM CDT) Anatomical Region Laterality Modality Head and Neck N/A Computed Tomogra phy 12/26/2024 9:42 PM CDT Impressions 12/27/2024 7:36 AM CDT CHRONIC ISCHEMIC WHITE MATTER CHANGES MILD CORTICAL ATROPHY Stat report by [facility] Electronically signed by: Bartolome Mcintyre M.D. Narrative [...] CHANGES MILD CORTICAL ATROPHY Stat report by [facility] Electronically signed by: Bartolome Mcintyre M.D. us Calixto Prince MD IM CT PROCEDURES Final R esult * ECG 12 lead (12/26/2024 9:36 PM CDT) 12/26/2024 9:36 PM CDT Narrative [facility] - 12/27/2024 7:49 AM CDT Vent Rate: 55 bpm RR Interval: 1088 msec MA Interval: 0 msec QRS Duration: 86 msec QT Interval: 411 msec QTC Interval: 399 msec P-R-T [place]: 0 - -6 - -2 degrees IMPRESSION: ATRIAL FIBRILLATION WITH SLOW VENTRICULAR RESPONSE NONSPECIFIC T-WAVE ABNORMALITY ABNORMAL RHYTHM ECG Compared to prior EKG atrial fibrillation has replaced sinus bradycardia Electronically Signed By: Daquan Brooks MD [facility] Calixto Prince MD ECG ORDERABLES Final Res ult Performing Organization Address City/[facility]/ZIP Co de Phone Number [facility] * (ABNORMAL) Troponin T high-sensitivity series (baseline, 2hr, 4hr, 6hr) (12/26/2024 8:49 PM CDT) Pathologist [facility] Trop T hs 103(H) <=14 ng/L Comment: Interpretive Data For further hscTnT resources including the diagnostic algorithm and an aid in interpretation, copy and paste this link: https://nrl.testcatalog.org/show/hsTrop Current Interpretive Data last revised 2020. Blood 12/26/2024 8:49 PM CDT 12/26/2024 8:55 PM CDT Calixto Prince MD LAB BLOOD ORDERABLES Edit ed Result - Final Performing Organization Address [facility] Co de Phone Number [facility] [address] [address] [place] [address] * Influenza A/B, RSV, and COVID-19 PCR Nasopharyngeal (12/26/2024 8:49 PM CDT) Pathologist [facility] COVID-19 RNA Negative Negative Influenza A RNA Negative Negative [facility] Influenza B RNA Negative Negative [facility] RSV RNA Negative Negative [facility] Comment: Interpretive data: Testing performed by [facility]. This test is performed using the Applied StemCell Xpert Xpress CoV-2/Flu/RSV plus assay. This is a multiplex, real-time reverse transcriptase PCR assay intended for the qualitative detection of nucleic acid from SARS-CoV-2, influenza A, influenza B, and respiratory syncytial virus. This assay has been cleared by the [place] Food and Drug administration. The performance characteristics have been verified by the [facility]. Results must be considered in the clinical context, and a negative result does not rule out infection. Interpretive Data last revised 2023 Nasopharyngeal 12/26/2024 8: 49 PM CDT 12/26/2024 8:53 PM CDT Narrative KEREN GAMEZ - 12/26/2024 9:45 PM CDT Is the Patient experiencing symptoms consistent with COVID?->Yes Calixto Prince MD LAB MICROBIOLOGY - GENERA L ORDERABLES Final Result KEREN GAMEZ [address] [address] [place] [address] * (ABNORMAL) eGFR (12/26/2024 8:49 PM CDT) eGFR 46(L) >=60 mL/min/1. 73 m2 Comment: [...] MD LAB BLOOD ORDERABLES Yessica payan Result [facility] [address] [address] [place] [address] * (ABNORMAL) Differential, auto (12/26/2024 8:49 PM CDT) Neutrophil abs 4.52 1.50 - 6.50 K/cumm Imm gran abs 0.02 0.00 - 0.10 K/cumm [facility] Lymphocyte abs 2.06 0.80 - 3.30 K/cumm [facility] Monocyte abs 1.13(H) 0.20 - 0.80 K/cumm [facility] Eosinophil abs 0.03 0.00 - 0.50 K/cumm [facility] Basophil abs 0.02 0.00 - 0.10 K/cumm [facility] Neutrophil pct 58.0 % [facility] Comment: Interpretive Data Percent cell count reference ranges are not reported, since discordance with absolute values may lead to misinterpretation of CBC data. Current Interpretive Data was last revised on 2017. Imm gran pct 0.3 % [facility] Comment: Interpretive Data Percent cell count reference ranges are not reported, since discordance with absolute values may lead to misinterpretation of CBC data. Current Interpretive Data was last revised on 2017. Lymphocyte pct 26.5 % [facility] Comment: Interpretive Data Percent cell count reference ranges are not reported, since discordance with absolute values may lead to misinterpretation of CBC data. Current Interpretive Data was last revised on 2017. Monocyte pct 14.5 % [facility] Comment: Interpretive Data Percent cell count reference ranges are not reported, since discordance with absolute values may lead to misinterpretation of CBC data. Current Interpretive Data was last revised on 2017. Eosinophil pct 0.4 % [facility] Comment: Interpretive Data Percent cell [...] ORDERABLES Yessica l Result Performing Organization Address [facility] Co de Phone Number KEREN [phone] [address] [place] [address] * (ABNORMAL) Urinalysis reflex to microscopic and culture Urine (12/26/2024 8:49 PM CDT) Color, ur Yellow Yellow Clarity, ur Turbid(A) Clear [facility] Specific gravity, ur 1.021 1.003 - 1.030 [facility] pH, urine 6.0 [facility] Comment: Interpretive Data U rine pH is affected by diet, medications, systemic acid-base disturbances, and renal tubular function. pH may affect urinary stone formation. For example, urine pH below 6.0 may help reduce the tendency for calcium phosphate stones and pH greater than 6.0 may reduce the tendency for uric acid stone formation. Source: [facility] Current Interpretive Data was last revised [...] L ORDERABLES Final Result Performing Organization Address [facility]/ZIP Co de Phone Number KEREN [address] [address] [place] [address] * CBC with auto differential (12/26/2024 8:49 PM CDT) Pathologist [facility] WBC 7.78 3.80 - 9.90 K/cumm Hgb 13.8 11.9 - 15.5 g/dL [facility] Hct 42.6 35.6 - 45.5 % [facility] Plt 308 150 - 400 K/cumm [facility] MPV 10.6 9.1 - 12.3 fL [facility] RBC 4.97 3.90 - 5.20 M/cumm [facility] MCV 85.7 81.3 - 96.4 fL [facility] MCH 27.8 27.1 - 33.3 pg [facility] MCHC 32.4 32.3 - 35.7 g/dL [facility] RDW CV 14.2 11.1 - 14.9 % [facility] RDW SD 45.0 35.7 - 48.1 fL [facility] NRBC abs 0.00 0.00 - 0.01 K/cumm [facility] Blood Venous blood specimen / Unknown 12/26/2024 8:49 PM CDT 12/26/2024 8:55 PM CDT us Calixto Prince MD LAB BLOOD ORDERABLES Yessica l Result [facility] [address] [address] [place] [address] * (ABNORMAL) Comprehensive metabolic panel (12/26/2024 8:49 PM CDT) Pathologist [facility] Sodium 141 135 - 145 mmol/L Potassium, pl 4.6 3.3 - 4.9 mmol/L [facility] Chloride 102 97 - 110 mmol/L [facility] CO2 26 22 - 32 mmol/L [facility] Anion gap 13 2 - 15 mmol/L [facility] BUN 17 6 - 25 mg/dL [facility] Creatinine 1.22(H) 0.60 - 1.10 mg/dL [facility] Glucose 95 70 - 199 mg/dL [facility] Comment: Interpretive Data Fasting glucose >/= 126 [...] Calixto Prince MD LAB BLOOD ORDERABLES Yessica paayn Result [facility] [address] [address] [place] [address] * Lipid panel (12/18/2024 2:51 PM CDT) [...] revised on 2017. Triglycerides 76 <=149 mg/dL [facility] Comment: Interpretive Data Ages < or = [...] on 2017. HDL 63 >=40 mg/dL KEREN Comment: Interpretive Data Ages < or = [...] 2017. LDL, calculated 46 <=129 mg/dL KEREN Comment: Interpretive Data Ages < or = [...] on 2023. Non-HDL Cholesterol 61 mg/dL KEREN Comment: Interpretive Data Ages < or = [...] BLOOD ORDERABLES F inal Result KEREN GAMEZ [address] [address] [place] [address] * (ABNORMAL) Hemoglobin A1c (01/17/2024 11:43 AM CDT) Hgb A1C 6.6(H) 4.0 - 5.6 % Estimated Average Glucose 143 mg/dL KEREN BROWNLEE (BILL) Comment: The ADA recommends reporting an estimated Average Glucose (eAG) with all Hemoglobin A1c results using the equation derived from a study of 507 normal and diabetic adults. Minority populations were underrepresented and children were not included. (Diabetes Care 31:0416-1220, 2008). The eAG is not equivalent to a fasting glucose. 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 MF: SONIDO Report ID: [id number] Reading Location: [id number] Karolyn Evans [employer] IMG DXA PROCEDURES Final Res ult * HM HEPATITIS C SCREENING (01/29/2022) SCRIBED HCV ab non Blood Historical Provider HEALTH MAINTENANCE Final Result * COLONOSCOPY (07/15/2020 11:52 AM SENIOR SYSTEMS DEVELOPER) Anatomical Region Laterality Modality Other Narrative Procedure Note Victor Manuel Noguera MD - 07/15/2020 11:52 AM CST [facility] Patient Name: Arabella Hankins Procedure Date: 07/15/2020 11:52 AM Date of : 1950 Admit Type: Outpatient Age: 70 Gender: Female Note Status: Finalized Attending MD: Victor Manuel Noguera M.D. Procedure Date: 07/15/2020 Procedure: Colonoscopy Indications: High risk colon cancer surveillance: Personalhistory of colonic polyps, Last colonoscopy: 2015 Providers: Victor Manuel Noguera M.D., ADRIENNE Lemus (Anesthesia Staff), Bridgett Cullen, RN, MAURA Corbett Referring MD: Sudhir Espinoza [...] by the physician, the nurse and the service line layer in the procedure room. Mental Status Examination: [...] for surveillance. Procedure Code(s): --- Professional --- 82940, Colonoscopy, flexible; with removal of tumor(s), polyp(s), or other lesion(s) by snare technique 10228, 59, Colonoscopy, flexible; with biopsy,single or multiple Diagnosis Code(s): --- Professional --- K63.5, Polyp of colon Z86.010, Personal history of colonic polyps K57.30, Diverticulosis of large intestine without perforation or abscess without bleeding CPT copyright 2019 [employer]. All rights reserved. The codes documented in this report are preliminary and upon compensation and benefits administrator reviewmay be revised to meet current compliance requirements. Electronically signed by Victor Manuel Noguera M.D. Victor Manuel Noguera M.D. 07/15/2020 12:24:51 PM Number of Addenda: 0 Note Initiated On: 07/15/2020 11:52 AM Victor Manuel Noguera MD ENDOSCOPY PROCEDURES Fi nal Result from Last 3 Months or Most Recently Relevant to Health Maintenance Insurance [facility] MEDICARE ADVANTAGE [facility] Address: [facility] [address] [place] [address] [facility] MEDICARE [facility] Address: [address] [place] [place] [address] [employer]HC MEDICARE ADVANTAGE [facility] MED[facility] Address: [facility] [address] [place] [address] Advance Directives For more information, please contact: [phone] * Full Code (Latest Code Status on File) Date Activated Date Inactivated Comments 06/06/2020 6:21 PM 06/10/2020 10:52 PM * Full Code Date Activated Date Inactivated Comments 06/06/2020 6:21 PM 06/06/2020 6:21 PM Care Teams Tinsmith Helper Relationship Specialty Start Date End Date Meir Ibrahim MD [address] [place] [address] PCP - General Internal Medicine 01/17/25 Roxanne Werner MD [address] [place] [address] Consulting Physician Cardiology 07/31/21 Ata Bronson, JENNI [address] [place] [address] Consulting Physician Foot and Ankle Surg 07/31/21
--- OUTSIDE RECORDS SUMMARY | 2025-03-09 09:12 | XMS_ITS | Encounter Summary ---
Author Organization [facility] Address [address] [place] [address] Care Team Providers Care Actuarial Internship Name Role Phone Michael Smith MD Primary Care Provider [phone] Encounter Details Date Type Department Care Team (Late st Contact Info) Description 01/22/2005 Outpatient Historical Division of Neurology [address] [address] Brandon De Leon MD [address] [facility] [address] [address] Social History Tobacco Use Types Packs/Day Years Used Date Smoking Tobacco: Never Assessed Comments Unknown Sex and Gender Information Value Date Recorded Sex Assigned at Not on file Legal Sex Female 4:52 AM REGIONAL GUIDE Gender Identity Not on file Sexual Orientation Not on file documented as of this encounter Plan of Treatment Not on file documented as of this encounter Visit Diagnoses Not on filedocumented in this encounter Additional Health Concerns Infection Onset Date Last Indicated Resolved Time R/O COVID-19 05/17/2020 05/20/2020 05/20/2020 3:21 PM REGIONAL GUIDE documented as of this encounter Care Teams Actuarial Internship Relationship Specialty Start Date End Date Michael Smith MD [address] [facility] [address] [place] [address] PCP - General 04/28/01 10/23/20 documented as of this encounter
--- OUTSIDE RECORDS SUMMARY | 2025-03-09 09:12 | XMS_ITS | Encounter Summary ---
Author Organization [facility] Address [address] [facility] [address] Care Team Providers Care Electrician Office Name Role Phone Michael Smith MD Primary Care Provider [phone] Encounter Details Date Type Department Care Team (Late st Contact Info) Description 04/28/2001 Outpatient Historical [facility] Lebron Farr MD [address] [place] [phone] BENIGN NEOPLASM LG BOWEL (Primary Dx) Social History Tobacco Use Types Packs/Day Years Used Date Smoking Tobacco: Never Assessed Comments Unknown Sex and Gender Information Value Date Recorded Sex Assigned at Not on file Legal Sex Female 4:52 AM PRESS MAINTAINER Gender Identity Not on file Sexual Orientation Not on file documented as of this encounter Plan of Treatment Not on file documented as of this encounter Visit Diagnoses Diagnosis Benign neoplasm of colon- Primary documented in this encounter Additional Health Concerns Infection Onset Date Last Indicated Resolved Time R/O COVID-19 05/17/2020 05/20/2020 05/20/2020 3:21 PM PRESS MAINTAINER documented as of this encounter Care Teams Electrician Office Relationship Specialty Start Date End Date Michael Smith MD [address] [facility] [address] [place] [address] PCP - General 04/28/01 10/23/20 documented as of this encounter
--- OUTSIDE RECORDS SUMMARY | 2025-03-09 09:12 | XMS_ITS | Encounter Summary ---
Author Organization [facility] Address [address] [place] [address] Care Team Providers Care Bilingual Branch Manager Name Role Phone Michael Smith MD Primary Care Provider [phone] Encounter Details Date Type Department Care Team (Late st Contact Info) Description 03/08/2006 Outpatient Historical [facility] Internal Medicine [address] [place] [address] Michael Smith MD [address] [place] [address] Social History Tobacco Use Types Packs/Day Years Used Date Smoking Tobacco: Never Assessed Comments Unknown Sex and Gender Information Value Date Recorded Sex Assigned at Not on file Legal Sex Female 4:52 AM LAND LEASING INFORMATION CLERK Gender Identity Not on file Sexual Orientation Not on file documented as of this encounter Plan of Treatment Not on file documented as of this encounter Visit Diagnoses Not on filedocumented in this encounter Additional Health Concerns Infection Onset Date Last Indicated Resolved Time R/O COVID-19 05/17/2020 05/20/2020 05/20/2020 3:21 PM LAND LEASING INFORMATION CLERK documented as of this encounter Care Teams Bilingual Branch Manager Relationship Specialty Start Date End Date Michael Smith MD [address] [place] [address] PCP - General 04/28/01 10/23/20 documented as of this encounter
--- OUTSIDE RECORDS SUMMARY | 2025-03-09 09:12 | XMS_ITS | Encounter Summary ---
Author Organization [facility] Address [address] [facility] Attn: Epic Prelude ADT [place] [address] Care Team Providers Care Electronic Scale Subassembler Name Role Phone Michael Smith MD Primary Care Provider Encounter Details Date Type Department Care Team (Late st Contact Info) Description 11/12/1992 Outpatient Historical Michael Smith MD [address] [place] [address] Social History Tobacco Use Types Packs/Day Years Used Date Smoking Tobacco: Never Assessed Comments Unknown Sex and Gender Information Value Date Recorded Sex Assigned at Not on file Legal Sex Female 4:52 AM SCHOOL PSYCHOLOGY PROFESSOR Gender Identity Not on file Sexual Orientation Not on file documented as of this encounter Plan of Treatment Not on file documented as of this encounter Visit Diagnoses Not on filedocumented in this encounter Additional Health Concerns Infection Onset Date Last Indicated Resolved Time R/O COVID-19 05/17/2020 05/20/2020 05/20/2020 3:21 PM SCHOOL PSYCHOLOGY PROFESSOR documented as of this encounter Care Teams Electronic Scale Subassembler Relationship Specialty Start Date End Date Michael Smith MD [address] [place] [address] PCP - General 04/28/01 10/23/20 documented as of this encounter
--- OUTSIDE RECORDS SUMMARY | 2025-03-09 09:12 | XMS_ITS | Encounter Summary ---
Author Organization [facility] Address [address] [place] [address] Care Team Providers Care Vice President Of Advertising Name Role Phone Michael Smith MD Primary Care Provider [phone] Encounter Details Date Type Department Care Team (Late st Contact Info) Description 09/27/2006 Orders Only [facility] Internal Medicine [address] [place] [address] Michael Smith MD [address] [place] [address] Social History Tobacco Use Types Packs/Day Years Used Date Smoking Tobacco: Never Assessed Comments Unknown Sex and Gender Information Value Date Recorded Sex Assigned at Not on file Legal Sex Female 4:52 AM CHAIRMAN & CHIEF EXECUTIVE OFFICER Gender Identity Not on file Sexual Orientation Not on file documented as of this encounter Plan of Treatment Not on file documented as of this encounter Visit Diagnoses Not on filedocumented in this encounter Additional Health Concerns Infection Onset Date Last Indicated Resolved Time R/O COVID-19 05/17/2020 05/20/2020 05/20/2020 3:21 PM CHAIRMAN & CHIEF EXECUTIVE OFFICER documented as of this encounter Care Teams Vice President Of Advertising Relationship Specialty Start Date End Date Michael Smith MD [address] [place] [address] PCP - General 04/28/01 10/23/20 documented as of this encounter
--- OUTSIDE RECORDS SUMMARY | 2025-03-09 09:12 | XMS_ITS | Encounter Summary ---
Author Organization [facility] Address [address] [place] [address] Care Team Providers Care Freight Loader Name Role Phone Michael Smith MD Primary Care Provider [phone] Encounter Details Date Type Department Care Team (Late st Contact Info) Description 04/13/2007 Outpatient Historical [facility] Internal Medicine [address] [place] [address] Michael Smith MD [address] [place] [address] Social History Tobacco Use Types Packs/Day Years Used Date Smoking Tobacco: Never Assessed Comments Unknown Sex and Gender Information Value Date Recorded Sex Assigned at Not on file Legal Sex Female 4:52 AM BUCKLE ASSEMBLER Gender Identity Not on file Sexual Orientation Not on file documented as of this encounter Plan of Treatment Not on file documented as of this encounter Visit Diagnoses Not on filedocumented in this encounter Additional Health Concerns Infection Onset Date Last Indicated Resolved Time R/O COVID-19 05/17/2020 05/20/2020 05/20/2020 3:21 PM BUCKLE ASSEMBLER documented as of this encounter Care Teams Freight Loader Relationship Specialty Start Date End Date Michael Smith MD [address] [place] [address] PCP - General 04/28/01 10/23/20 documented as of this encounter
--- OUTSIDE RECORDS SUMMARY | 2025-03-09 09:12 | XMS_ITS | Encounter Summary ---
Author Organization [facility] Address [address] [place] [address] Care Team Providers Care Software Quality Assurance Engineer Name Role Phone Michael Smith MD Primary Care Provider [phone] Encounter Details Date Type Department Care Team (Late st Contact Info) Description 03/12/[address] [facility] Internal Medicine [address] [place] [address] Michael Smith MD [address] [facility] [address] [place] [address] Social History Tobacco Use Types Packs/Day Years Used Date Smoking Tobacco: Never Assessed Comments Unknown Sex and Gender Information Value Date Recorded Sex Assigned at Not on file Legal Sex Female 4:52 AM GLASS WASHER AND CARRIER Gender Identity Not on file Sexual Orientation Not on file documented as of this encounter Progress Notes * Michael Smith MD - 02/21/2008 10:41 PM CDT NURSE NAME: Sugey Ortega * Michael Smith MD - 02/21/2008 10:41 PM CDT TIME:11:30 am PATIENT`S HOME PHONE: PATIENT`S WORK PHONE: PATIENT`S INSURANCE: [employer] PPO WHO TOOK THE CALL: Sugey [...] DISCONTINUED, 03/12/2006, Comment: faxed to [facility] @ [phone] on 11/12/05/rll. LEVOXYL ORAL TABLET 112 MCG, Take one tab po every day, 30 Dispensed, 5 Fills, status: NEW PRESCRIPTION, 03/12/2006. 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 LAB ORDERS: Order number: [id number] Test Ordered: TSH 899 SECTION 3: RN/SOFTWARE QUALITY ASSURANCE ENGINEER RESPONSE: pav03/12/06 at 11:37 am Call to patient regarding lab results:which show cholesterol 225,axk015,hdl 68 ok.Glucose is normal,kidney and liver normal,no [...] R/O COVID-19 05/17/2020 05/20/2020 05/20/2020 3:21 PM GLASS WASHER AND CARRIER documented as of this encounter Care Teams Software Quality Assurance Engineer Relationship Specialty Start Date End Date Michael Smith MD [address] [facility] [address] [place] [address] PCP - General 04/28/01 10/23/20 documented as of this encounter
--- OUTSIDE RECORDS SUMMARY | 2025-03-09 09:12 | XMS_ITS | Encounter Summary ---
Author Organization [facility] Address [address] [place] [address] Care Team Providers Care Exerciser Name Role Phone Michael Smith MD Primary Care Provider [phone] Encounter Details Date Type Department Care Team (Latest Contact Info) Description 11/02/2006 Outpatient Historical [facility] Jonel Vásquez MD [address] [facility] [address] [place] [address] Other Screening Mammogram (Primary Dx) Social History Tobacco Use Types Packs/Day Years Used Date Smoking Tobacco: Never Assessed Comments Unknown Sex and Gender Information Value Date Recorded Sex Assigned at Not on file Legal Sex Female 4:52 AM COMMERCIAL ANNOUNCER Gender Identity Not on file Sexual Orientation Not on file documented as of this encounter Plan of Treatment Not on file documented as of this encounter Visit Diagnoses Diagnosis Other screening mammogram- Primary documented in this encounter Additional Health Concerns Infection Onset Date Last Indicated Resolved Time R/O COVID-19 05/17/2020 05/20/2020 05/20/2020 3:21 PM COMMERCIAL ANNOUNCER documented as of this encounter Care Teams Exerciser Relationship Specialty Start Date End Date Michael Smith MD [address] [facility] [address] [place] [address] PCP - General 04/28/01 10/23/20 documented as of this encounter
--- OUTSIDE RECORDS SUMMARY | 2025-03-09 09:12 | XMS_ITS | Encounter Summary ---
Author Organization [facility] Address [address] [place] [address] Care Team Providers Care Inclusion Teacher Name Role Phone Michael Smith MD Primary Care Provider [phone] Encounter Details Date Type Department Care Team (Late st Contact Info) Description 11/28/2004 Outpatient Historical [facility] Internal Medicine [address] [place] [address] Michael Smith MD [address] [place] [address] Social History Tobacco Use Types Packs/Day Years Used Date Smoking Tobacco: Never Assessed Comments Unknown Sex and Gender Information Value Date Recorded Sex Assigned at Not on file Legal Sex Female 4:52 AM SUB ACUTE CARE NURSE Gender Identity Not on file Sexual Orientation Not on file documented as of this encounter Plan of Treatment Not on file documented as of this encounter Visit Diagnoses Not on filedocumented in this encounter Additional Health Concerns Infection Onset Date Last Indicated Resolved Time R/O COVID-19 05/17/2020 05/20/2020 05/20/2020 3:21 PM SUB ACUTE CARE NURSE documented as of this encounter Care Teams Inclusion Teacher Relationship Specialty Start Date End Date Michael Smith MD [address] [place] [address] PCP - General 04/28/01 10/23/20 documented as of this encounter
--- OUTSIDE RECORDS SUMMARY | 2025-03-09 09:12 | XMS_ITS | Encounter Summary ---
Author Organization [employer] Address [address] [place] [address] Care Team Providers Care Clearance Coordinator Name Role Phone Michael Smith MD Primary Care Provider [phone] Encounter Details Date Type Department Care Team (Latest Contact Info) Description 09/17/2003 Outpatient Historical HIS IMG[facility] Michael Smith MD [address] [place] [address] OTHER OVARIAN FAILURE (Primary Dx) Social History Tobacco Use Types Packs/Day Years Used Date Smoking Tobacco: Never Assessed Comments Unknown Sex and Gender Information Value Date Recorded Sex Assigned at Not on file Legal Sex Female 4:52 AM OFFICE SERVICES CLERK Gender Identity Not on file Sexual Orientation Not on file documented as of this encounter Plan of Treatment Not on file documented as of this encounter Visit Diagnoses Diagnosis Other ovarian failure(256.39)- Primary Other ovarian failure documented in this encounter Additional Health Concerns Infection Onset Date Last Indicated Resolved Time R/O COVID-19 05/17/2020 05/20/2020 05/20/2020 3:21 PM OFFICE SERVICES CLERK documented as of this encounter Care Teams Clearance Coordinator Relationship Specialty Start Date End Date Michael Smith MD [address] [place] [address] PCP - General 04/28/01 10/23/20 documented as of this encounter
--- OUTSIDE RECORDS SUMMARY | 2025-03-09 09:12 | XMS_ITS | Encounter Summary ---
Author Organization [facility] Address [address] [place] [address] Care Team Providers Care Network Contractor Name Role Phone Michael Smith MD Primary Care Provider [phone] Encounter Details Date Type Department Care Team (Late st Contact Info) Description 08/18/2007 Outpatient Historical [facility] Internal Medicine [address] [place] [address] Michael Smith MD [address] [place] [address] Social History Tobacco Use Types Packs/Day Years Used Date Smoking Tobacco: Never Assessed Comments Unknown Sex and Gender Information Value Date Recorded Sex Assigned at Not on file Legal Sex Female 4:52 AM BULK SEALER OPERATOR Gender Identity Not on file Sexual Orientation Not on file documented as of this encounter Plan of Treatment Not on file documented as of this encounter Visit Diagnoses Not on filedocumented in this encounter Additional Health Concerns Infection Onset Date Last Indicated Resolved Time R/O COVID-19 05/17/2020 05/20/2020 05/20/2020 3:21 PM BULK SEALER OPERATOR documented as of this encounter Care Teams Network Contractor Relationship Specialty Start Date End Date Michael Smith MD [address] [place] [address] PCP - General 04/28/01 10/23/20 documented as of this encounter
--- OUTSIDE RECORDS SUMMARY | 2025-03-09 09:12 | XMS_ITS | Encounter Summary ---
Author Organization [facility] Address [address] [place] [address] Care Team Providers Care Outside Repairer Special Name Role Phone Michael Smith MD Primary Care Provider [phone] Encounter Details Date Type Department Care Team (Late st Contact Info) Description 04/30/2003 Outpatient Historical [facility] Internal Medicine [address] [place] [address] Michael Smith MD [address] [place] [address] Social History Tobacco Use Types Packs/Day Years Used Date Smoking Tobacco: Never Assessed Comments Unknown Sex and Gender Information Value Date Recorded Sex Assigned at Not on file Legal Sex Female 4:52 AM SUPERVISOR FELLING BUCKING Gender Identity Not on file Sexual Orientation Not on file documented as of this encounter Plan of Treatment Not on file documented as of this encounter Visit Diagnoses Not on filedocumented in this encounter Additional Health Concerns Infection Onset Date Last Indicated Resolved Time R/O COVID-19 05/17/2020 05/20/2020 05/20/2020 3:21 PM SUPERVISOR FELLING BUCKING documented as of this encounter Care Teams Outside Repairer Special Relationship Specialty Start Date End Date Michael Smith MD [address] [place] [address] PCP - General 04/28/01 10/23/20 documented as of this encounter
--- OUTSIDE RECORDS SUMMARY | 2025-03-09 09:12 | XMS_ITS | Encounter Summary ---
Author Organization [facility] Address [address] [place] [address] Care Team Providers Care Political Researcher Name Role Phone Michael Smith MD Primary Care Provider [phone] Encounter Details Date Type Department Care Team (Latest Contact Info) Description 03/17/2004 Outpatient Historical [facility] Michael mSith MD [address] [place] [address] ABN INVOLUN MOVEMENT NEC (Primary Dx) Social History Tobacco Use Types Packs/Day Years Used Date Smoking Tobacco: Never Assessed Comments Unknown Sex and Gender Information Value Date Recorded Sex Assigned at Not on file Legal Sex Female 4:52 AM EMPLOYMENT RECRUITER Gender Identity Not on file Sexual Orientation Not on file documented as of this encounter Plan of Treatment Not on file documented as of this encounter Visit Diagnoses Diagnosis Abnormal involuntary movements(781.0)- Primary Abnormal involuntary movements documented in this encounter Additional Health Concerns Infection Onset Date Last Indicated Resolved Time R/O COVID-19 05/17/2020 05/20/2020 05/20/2020 3:21 PM EMPLOYMENT RECRUITER documented as of this encounter Care Teams Political Researcher Relationship Specialty Start Date End Date Michael Smith MD [address] [place] [address] PCP - General 04/28/01 10/23/20 documented as of this encounter
--- OUTSIDE RECORDS SUMMARY | 2025-03-09 09:12 | XMS_ITS | Encounter Summary ---
Author Organization [facility] Address [address] [place] [address] Care Team Providers Care Oyster Buyer Name Role Phone Michael Smith MD Primary Care Provider [phone] Encounter Details Date Type Department Care Team (Late st Contact Info) Description 10/22/2003 Outpatient Historical [facility] Internal Medicine [address] [place] [address] Michael Smith MD [address] [place] [address] Social History Tobacco Use Types Packs/Day Years Used Date Smoking Tobacco: Never Assessed Comments Unknown Sex and Gender Information Value Date Recorded Sex Assigned at Not on file Legal Sex Female 4:52 AM ENGINEERING TECH Gender Identity Not on file Sexual Orientation Not on file documented as of this encounter Plan of Treatment Not on file documented as of this encounter Visit Diagnoses Not on filedocumented in this encounter Additional Health Concerns Infection Onset Date Last Indicated Resolved Time R/O COVID-19 05/17/2020 05/20/2020 05/20/2020 3:21 PM ENGINEERING TECH documented as of this encounter Care Teams Oyster Buyer Relationship Specialty Start Date End Date Michael Smith MD [address] [place] [address] PCP - General 04/28/01 10/23/20 documented as of this encounter
--- OUTSIDE RECORDS SUMMARY | 2025-03-09 09:12 | XMS_ITS | Encounter Summary ---
Author Organization [facility] Address [address] [place] [address] Care Team Providers Care Location Analyst Name Role Phone Michael Smith MD Primary Care Provider [phone] Encounter Details Date Type Department Care Team (Latest Contact Info) Description 09/21/2001 Outpatient Historical [facility] Jonel Mulligan MD [address] [facility] [address] [place] [address] FOLLOW-UP EXAM NEC (Primary Dx) Social History Tobacco Use Types Packs/Day Years Used Date Smoking Tobacco: Never Assessed Comments Unknown Sex and Gender Information Value Date Recorded Sex Assigned at Not on file Legal Sex Female 4:52 AM NEWS CLIPPING CUTTER Gender Identity Not on file Sexual Orientation Not on file documented as of this encounter Plan of Treatment Not on file documented as of this encounter Visit Diagnoses Diagnosis Other follow-up examination(V67.59)- Primary Other follow-up examination documented in this encounter Additional Health Concerns Infection Onset Date Last Indicated Resolved Time R/O COVID-19 05/17/2020 05/20/2020 05/20/2020 3:21 PM NEWS CLIPPING CUTTER documented as of this encounter Care Teams Location Analyst Relationship Specialty Start Date End Date Michael Smith MD [address] [place] [address] PCP - General 04/28/01 10/23/20 documented as of this encounter
--- OUTSIDE RECORDS SUMMARY | 2025-03-09 09:12 | XMS_ITS | Encounter Summary ---
Author Organization [facility] Address [address] [place] [address] Care Team Providers Care Entry Level Receptionist Name Role Phone Michael Smith MD Primary Care Provider [phone] Encounter Details Date Type Department Care Team (Late st Contact Info) Description 02/22/2004 Outpatient Historical [facility] Internal Medicine [address] [place] [address] Michael Smith MD [address] [place] [address] Social History Tobacco Use Types Packs/Day Years Used Date Smoking Tobacco: Never Assessed Comments Unknown Sex and Gender Information Value Date Recorded Sex Assigned at Not on file Legal Sex Female 4:52 AM LOCAL DELIVERY TRUCK DRIVER Gender Identity Not on file Sexual Orientation Not on file documented as of this encounter Plan of Treatment Not on file documented as of this encounter Visit Diagnoses Not on filedocumented in this encounter Additional Health Concerns Infection Onset Date Last Indicated Resolved Time R/O COVID-19 05/17/2020 05/20/2020 05/20/2020 3:21 PM LOCAL DELIVERY TRUCK DRIVER documented as of this encounter Care Teams Entry Level Receptionist Relationship Specialty Start Date End Date Michael Smith MD [address] [place] [address] PCP - General 04/28/01 10/23/20 documented as of this encounter
--- OUTSIDE RECORDS SUMMARY | 2025-03-09 09:12 | XMS_ITS | Encounter Summary ---
Author Organization [facility] Address [address] [place] [address] Care Team Providers Care Psychology Professor Name Role Phone Michael Smith MD Primary Care Provider [phone] Encounter Details Date Type Department Care Team (Late st Contact Info) Description 06/13/[address] [facility] Internal Medicine [address] [place] [address] Michael Smith MD [address] [facility] [address] [place] [address] Social History Tobacco Use Types Packs/Day Years Used Date Smoking Tobacco: Never Assessed Comments Unknown Sex and Gender Information Value Date Recorded Sex Assigned at Not on file Legal Sex Female 4:52 AM WHEEL OF FORTUNE DEALER Gender Identity Not on file Sexual Orientation Not on file documented as of this encounter Progress Notes * Michael Smith MD - 09/21/2007 10:50 AM CDT TIME:11:49 am PATIENT`S HOME PHONE: PATIENT`S WORK PHONE: PATIENT`S INSURANCE: [employer] PPO WHO TOOK THE CALL: Giselle Gamino L GENERAL INFORMATION PATIENT STATUS: Established Patient. WHO CALLED: Pharmacy called. PHARMACY NUMBER: [phone] SECTION 1: REQUESTED ACTION [email or web address] 06/13/07 at [...] R/O COVID-19 05/17/2020 05/20/2020 05/20/2020 3:21 PM WHEEL OF FORTUNE DEALER documented as of this encounter Care Teams Psychology Professor Relationship Specialty Start Date End Date Michael Smith MD 300 [facility] [address] [address] PCP - General 04/28/01 10/23/20 documented as of this encounter
--- OUTSIDE RECORDS SUMMARY | 2025-03-09 09:12 | XMS_ITS | Encounter Summary ---
Author Organization [facility] Address [address] [place] [address] Care Team Providers Care Pharmaceutical Engineer Name Role Phone Michael Smith MD Primary Care Provider [phone] Encounter Details Date Type Department Care Team (Latest Contact Info) Description 05/13/2006 Outpatient Historical [facility] Jonel Mulligan MD [address] [facility] [address] [place] [address] Abnormal Mammogram, Unspecified (Primary Dx) Social History Tobacco Use Types Packs/Day Years Used Date Smoking Tobacco: Never Assessed Comments Unknown Sex and Gender Information Value Date Recorded Sex Assigned at Not on file Legal Sex Female 4:52 AM HOSPICE NURSE PRACTITIONER Gender Identity Not on file Sexual Orientation Not on file documented as of this encounter Plan of Treatment Not on file documented as of this encounter Visit Diagnoses Diagnosis Abnormal mammogram, unspecified- Primary documented in this encounter Additional Health Concerns Infection Onset Date Last Indicated Resolved Time R/O COVID-19 05/17/2020 05/20/2020 05/20/2020 3:21 PM HOSPICE NURSE PRACTITIONER documented as of this encounter Care Teams Pharmaceutical Engineer Relationship Specialty Start Date End Date Michael Smith MD [address] [facility] [address] [place] [address] PCP - General 04/28/01 10/23/20 documented as of this encounter
--- OUTSIDE RECORDS SUMMARY | 2025-03-09 09:12 | XMS_ITS | Encounter Summary ---
Author Organization [facility] Address [address] [place] [address] Care Team Providers Care Pipe Fitter Ammonia Name Role Phone Michael Smith MD Primary Care Provider [phone] Encounter Details Date Type Department Care Team (Late st Contact Info) Description 04/06/2007 Orders Only [facility] Internal Medicine [address] [place] [address] Michael Smith MD [address] [facility] [address] [place] [address] Social History Tobacco Use Types Packs/Day Years Used Date Smoking Tobacco: Never Assessed Comments Unknown Sex and Gender Information Value Date Recorded Sex Assigned at Not on file Legal Sex Female 4:52 AM PROFILE SAW SETUP OPERATOR Gender Identity Not on file Sexual Orientation Not on file documented as of this encounter Progress Notes * Michael Smith MD - 09/22/2007 8:37 PM CDT TIME:10:00 am PATIENT`S HOME PHONE: PATIENT`S WORK PHONE: PATIENT`S INSURANCE: [employer] PPO WHO TOOK THE CALL: Giselle Gamino L GENERAL INFORMATION PATIENT STATUS: Established Patient. WHO CALLED: Pharmacy called. PHARMACY NUMBER: [phone] SECTION 1: REQUESTED ACTION nabila 04/06/07 at [...] R/O COVID-19 05/17/2020 05/20/2020 05/20/2020 3:21 PM PROFILE SAW SETUP OPERATOR documented as of this encounter Care Teams Pipe Fitter Ammonia Relationship Specialty Start Date End Date Michael Smith MD 300 [facility] [address] [place] [address] PCP - General 04/28/01 10/23/20 documented as of this encounter
--- OUTSIDE RECORDS SUMMARY | 2025-03-09 09:12 | XMS_ITS | Encounter Summary ---
Author Organization [facility] Address [address] [place] [address] Care Team Providers Care Ocean Rescue Lieutenant Name Role Phone Michael Smith MD Primary Care Provider [phone] Encounter Details Date Type Department Care Team (Late st Contact Info) Description 05/27/2006 Orders Only [facility] Internal Medicine [address] [place] [address] Michael Smith MD [address] [facility] [address] [place] [address] Social History Tobacco Use Types Packs/Day Years Used Date Smoking Tobacco: Never Assessed Comments Unknown Sex and Gender Information Value Date Recorded Sex Assigned at Not on file Legal Sex Female 4:52 AM FEATHER SHAPER Gender Identity Not on file Sexual Orientation Not on file documented as of this encounter Progress Notes * Michael Smith MD - 10/04/2007 12:27 PM CDT TIME:09:49 am PATIENT`S HOME PHONE: PATIENT`S WORK PHONE: PATIENT`S INSURANCE: [employer] PPO WHO TOOK THE CALL: Anila Guthrie K GENERAL INFORMATION LAST VISIT: 03/08/06 WHO CALLED: Patient called. ([phone] PHARMACY NUMBER: [phone] SECTION 1: REQUESTED ACTION shannon 05/27/06 at 09:50 am: MEDICATION REQUEST: Pt has had cold j9zl--Wonlqrh Cold & Flu--nasal sinus congestion/no sore throat/no fever/no ear pn/yellow phlegm coughed up--cough just won't go away....../[facility] DOCTOR`S RESPONSE: pierocjw 05/27/06 at 09:56 [...] R/O COVID-19 05/17/2020 05/20/2020 05/20/2020 3:21 PM FEATHER SHAPER documented as of this encounter Care Teams Ocean Rescue Lieutenant Relationship Specialty Start Date End Date Michael Smith MD 300 [facility] [address] [place] [address] PCP - General 04/28/01 10/23/20 documented as of this encounter
--- OUTSIDE RECORDS SUMMARY | 2025-03-09 09:12 | XMS_ITS | Encounter Summary ---
Author Organization [facility] Address [address] [place] [address] Care Team Providers Care Settlement Technician Name Role Phone Michael Smith MD Primary Care Provider [phone] Encounter Details Date Type Department Care Team (Late st Contact Info) Description 08/25/2002 Outpatient Historical [facility] Internal Medicine [address] [place] [address] Michael Smith MD [address] [place] [address] Social History Tobacco Use Types Packs/Day Years Used Date Smoking Tobacco: Never Assessed Comments Unknown Sex and Gender Information Value Date Recorded Sex Assigned at Not on file Legal Sex Female 4:52 AM ASSOCIATE PROJECT MANAGER Gender Identity Not on file Sexual Orientation Not on file documented as of this encounter Plan of Treatment Not on file documented as of this encounter Visit Diagnoses Not on filedocumented in this encounter Additional Health Concerns Infection Onset Date Last Indicated Resolved Time R/O COVID-19 05/17/2020 05/20/2020 05/20/2020 3:21 PM ASSOCIATE PROJECT MANAGER documented as of this encounter Care Teams Settlement Technician Relationship Specialty Start Date End Date Michael Smith MD [address] [place] [address] PCP - General 04/28/01 10/23/20 documented as of this encounter
--- OUTSIDE RECORDS SUMMARY | 2025-03-09 09:12 | XMS_ITS | Encounter Summary ---
Author Organization [facility] Address [address] [facility] [place] [address] Care Team Providers Care Thermal Cutting Machine Operator Name Role Phone Michael Smith MD Primary Care Provider [phone] Encounter Details Date Type Department Care Team (Late st Contact Info) Description 11/18/2004 Outpatient Historical [facility] Lebron Farr MD [address] [facility] [address] [place] [phone] BENIGN NEOPLASM LG BOWEL (Primary Dx) Social History Tobacco Use Types Packs/Day Years Used Date Smoking Tobacco: Never Assessed Comments Unknown Sex and Gender Information Value Date Recorded Sex Assigned at Not on file Legal Sex Female 4:52 AM MANAGER INTEGRATED Gender Identity Not on file Sexual Orientation Not on file documented as of this encounter Plan of Treatment Not on file documented as of this encounter Visit Diagnoses Diagnosis Benign neoplasm of colon- Primary documented in this encounter Additional Health Concerns Infection Onset Date Last Indicated Resolved Time R/O COVID-19 05/17/2020 05/20/2020 05/20/2020 3:21 PM MANAGER INTEGRATED documented as of this encounter Care Teams Thermal Cutting Machine Operator Relationship Specialty Start Date End Date Michael Smith MD [address] [facility] [address] [place] [address] PCP - General 04/28/01 10/23/20 documented as of this encounter
--- OUTSIDE RECORDS SUMMARY | 2025-03-09 09:12 | XMS_ITS | Clinical Summary ---
Author Organization [facility] Address [address] [place] [address] Care Team Providers Care Marker Maker Name Role Phone Yesi Reddy PERSONAL INJURY ATTORNEY Primary Care Provider [phone] Allergies Active Allergy Reactions Criticality Noted Date Comments Sulfa Antibiotics Itching 03/08/2023 Medications apixaban (ELIQUIS) 5 MG tablet Take 5 mg by mouth in the morning and 5 mg in the evening. Active cholecalciferol (VITAMIN D-3) 1.25 MG (21611 UT) capsule Take 50,000 Units by mouth [...] age to complete this topic Care Teams Marker Maker Relationship Specialty Start Date End Date Yesi Reddy FNP [address] [place] [address] PCP - General Nurse Practitioner 05/13/23
--- OUTSIDE RECORDS SUMMARY | 2025-03-09 09:12 | XMS_ITS | Encounter Summary ---
Author Organization [facility] Address [address] [place] [address] Care Team Providers Care Events Assistant Name Role Phone Michael Smith MD Primary Care Provider [phone] Encounter Details Date Type Department Care Team (Late st Contact Info) Description 03/08/2006 Outpatient Historical [facility] Internal Medicine [address] [place] [address] Michael Smith MD [address] [place] [address] Social History Tobacco Use Types Packs/Day Years Used Date Smoking Tobacco: Never Assessed Comments Unknown Sex and Gender Information Value Date Recorded Sex Assigned at Not on file Legal Sex Female 4:52 AM HIM MANAGER Gender Identity Not on file Sexual Orientation Not on file documented as of this encounter Plan of Treatment Not on file documented as of this encounter Visit Diagnoses Not on filedocumented in this encounter Additional Health Concerns Infection Onset Date Last Indicated Resolved Time R/O COVID-19 05/17/2020 05/20/2020 05/20/2020 3:21 PM HIM MANAGER documented as of this encounter Care Teams Events Assistant Relationship Specialty Start Date End Date Michael Smith MD [address] [place] [address] PCP - General 04/28/01 10/23/20 documented as of this encounter
--- OUTSIDE RECORDS SUMMARY | 2025-03-09 09:12 | XMS_ITS | Encounter Summary ---
Author Organization [facility] Address [address] [place] [address] Care Team Providers Care Senior Engineering Manager Name Role Phone Michael Smith MD Primary Care Provider [phone] Encounter Details Date Type Department Care Team (Late st Contact Info) Description 12/20/2007 Outpatient Historical [facility] Lebron Farr MD [address] [facility] [address] [place] [phone] Social History Tobacco Use Types Packs/Day Years Used Date Smoking Tobacco: Never Comments No Sex and Gender Information Value Date Recorded Sex Assigned at Not on file Legal Sex Female 4:52 AM SURGICAL SCHEDULER Gender Identity Not on file Sexual Orientation Not on file documented as of this encounter Plan of Treatment Not on file documented as of this encounter Visit Diagnoses Not on filedocumented in this encounter Additional Health Concerns Infection Onset Date Last Indicated Resolved Time R/O COVID-19 05/17/2020 05/20/2020 05/20/2020 3:21 PM SURGICAL SCHEDULER documented as of this encounter Care Teams Senior Engineering Manager Relationship Specialty Start Date End Date Michael Smith MD [address] [facility] [address] [place] [address] PCP - General 04/28/01 10/23/20 documented as of this encounter
--- OUTSIDE RECORDS SUMMARY | 2025-03-09 09:12 | XMS_ITS | Encounter Summary ---
Author Organization [facility] Address [address] [facility] Attn: Epic Prelude ADT [place] [address] Care Team Providers Care Author'S Agent Name Role Phone Michael Smith MD Primary Care Provider Encounter Details Date Type Department Care Team (Late st Contact Info) Description 08/25/1993 Outpatient Historical Michael Smith MD [address] [place] [address] Social History Tobacco Use Types Packs/Day Years Used Date Smoking Tobacco: Never Assessed Comments Unknown Sex and Gender Information Value Date Recorded Sex Assigned at Not on file Legal Sex Female 4:52 AM PLASTIC SURGERY MANAGER Gender Identity Not on file Sexual Orientation Not on file documented as of this encounter Plan of Treatment Not on file documented as of this encounter Visit Diagnoses Not on filedocumented in this encounter Additional Health Concerns Infection Onset Date Last Indicated Resolved Time R/O COVID-19 05/17/2020 05/20/2020 05/20/2020 3:21 PM PLASTIC SURGERY MANAGER documented as of this encounter Care Teams Author'S Agent Relationship Specialty Start Date End Date Michael Smith MD [address] [place] [address] PCP - General 04/28/01 10/23/20 documented as of this encounter
--- OUTSIDE RECORDS SUMMARY | 2025-03-09 09:12 | XMS_ITS | Encounter Summary ---
Author Organization [facility] Address [address] [place] [address] Care Team Providers Care Stretch Machine Operator Name Role Phone Michael Smith MD Primary Care Provider [phone] Encounter Details Date Type Department Care Team (Late st Contact Info) Description 10/06/2007 Outpatient Historical [facility] Internal Medicine [address] [place] [address] Michael Smith MD [address] [facility] [address] [place] [address] Social History Tobacco Use Types Packs/Day Years Used Date Smoking Tobacco: Never Assessed Comments Unknown Sex and Gender Information Value Date Recorded Sex Assigned at Not on file Legal Sex Female 4:52 AM STEAM TABLE ASSOCIATE Gender Identity Not on file Sexual Orientation [...] R/O COVID-19 05/17/2020 05/20/2020 05/20/2020 3:21 PM STEAM TABLE ASSOCIATE documented as of this encounter Care Teams Stretch Machine Operator Relationship Specialty Start Date End Date Michael Smith MD [address] [facility] [address] [place] [address] PCP - General 04/28/01 10/23/20 documented as of this encounter
--- OUTSIDE RECORDS SUMMARY | 2025-03-09 09:12 | XMS_ITS | Encounter Summary ---
Author Organization [facility] Address [address] [place] [address] Care Team Providers Care Sap Technical Architect Name Role Phone Michael Smith MD Primary Care Provider [phone] Encounter Details Date Type Department Care Team (Latest Contact Info) Description 11/17/2004 Outpatient Historical [facility] CARDIOPULMONARY Michael Smith MD [address] [place] [address] CARDIOMEGALY (Primary Dx) Social History Tobacco Use [...] documented as of this encounter Care Teams Sap Technical Architect Relationship Specialty Start Date End Date Michael Smith MD [address] [place] [address] PCP - General 04/28/01 10/23/20 documented as of this encounter
--- OUTSIDE RECORDS SUMMARY | 2025-03-09 09:12 | XMS_ITS | Encounter Summary ---
Author Organization [facility] Address [address] [place] [address] Care Team Providers Care Ase Master Mechanic Name Role Phone Michael Smith MD Primary Care Provider [phone] Encounter Details Date Type Department Care Team (Late st Contact Info) Description 10/05/2007 Outpatient Historical [facility] Internal Medicine [address] [place] [address] Michael Smith MD [address] [place] [address] Social History Tobacco Use Types Packs/Day Years Used Date Smoking Tobacco: Never Assessed Comments Unknown Sex and Gender Information Value Date Recorded Sex Assigned at Not on file Legal Sex Female 4:52 AM STAINING MACHINE OPERATOR Gender Identity Not on file Sexual Orientation Not on file documented as of this encounter Plan of Treatment Not on file documented as of this encounter Visit Diagnoses Not on filedocumented in this encounter Additional Health Concerns Infection Onset Date Last Indicated Resolved Time R/O COVID-19 05/17/2020 05/20/2020 05/20/2020 3:21 PM STAINING MACHINE OPERATOR documented as of this encounter Care Teams Ase Master Mechanic Relationship Specialty Start Date End Date Michael Smith MD [address] [place] [address] PCP - General 04/28/01 10/23/20 documented as of this encounter
--- OUTSIDE RECORDS SUMMARY | 2025-03-09 09:12 | XMS_ITS | Encounter Summary ---
Author Organization [employer] Address [address] [place] [address] Care Team Providers Care Biomedical Engineer Name Role Phone Michael Smith MD Primary Care Provider [phone] Encounter Details Date Type Department Care Team (Late st Contact Info) Description 11/17/2004 Outpatient Historical [facility] Support Serv. ([facility] Cardiology[facility]) [address] [place] [address] Jerman Burrell MD [address] [facility] [address] [place], [place] [phone] Social History Tobacco Use Types Packs/Day Years Used Date Smoking Tobacco: Never Assessed Comments Unknown Sex and Gender Information Value Date Recorded Sex Assigned at Not on file Legal Sex Female 4:52 AM LEVEL VIAL SEALER Gender Identity Not on file Sexual Orientation Not on file documented as of this encounter Plan of Treatment Not on file documented as of this encounter Visit Diagnoses Not on filedocumented in this encounter Additional Health Concerns Infection Onset Date Last Indicated Resolved Time R/O COVID-19 05/17/2020 05/20/2020 05/20/2020 3:21 PM LEVEL VIAL SEALER documented as of this encounter Care Teams Biomedical Engineer Relationship Specialty Start Date End Date Michael Smith MD [address] [facility] [address] [place] [address] PCP - General 04/28/01 10/23/20 documented as of this encounter
--- OUTSIDE RECORDS SUMMARY | 2025-03-09 09:12 | XMS_ITS | Clinical Summary ---
Author Organization [facility] Administrative Offices Address [address] [place] [address] Care Team Providers Care Beater Lead Name Role Phone Unavailable Primary Care Provider [...] Need for prophylactic vaccin ation with combined mmqhdbuqif-gkgkkud-caqvkardz (DTP) vaccine 03/08/2006 12/17/2007 Benign neoplasm of [...] on file Legal Sex Female 4:52 AM RECREATION TECHNICIAN Gender Identity Not on file Sexual Orientation Not on file Occupation Industry Job Start Date Job End Date Not on file Not on file Not on file Not on file Last Filed Vital Signs Vital Sign Reading Time Taken Comments Blood Pressure 128/84 06/29/2019 8:24 AM RECREATION TECHNICIAN Pulse 67 05/30/2019 1:31 PM RECREATION TECHNICIAN Temperature 36.9 C (98.5 F) 05/30/2019 1:16 PM RECREATION TECHNICIAN Respiratory Rate 18 05/30/2019 1:31 PM RECREATION TECHNICIAN Oxygen Saturation 95% 05/30/2019 1:31 PM RECREATION TECHNICIAN Inhaled Oxygen Concentration - - Weight 91.2 kg (201 lb) 06/29/2019 8:24 AM RECREATION TECHNICIAN Height 170.2 cm (5' 7) 06/29/2019 8:24 AM RECREATION TECHNICIAN Body Mass Index 31.48 06/29/2019 8:24 AM RECREATION TECHNICIAN Plan of Treatment Health Maintenance Due Date [...] , 05/21/2014 Medical Devices Implanted Type Area Social Sciences Department Chair Device Identifier Shelf Expiration Date Model / Serial / Lot Log [id number] - Bladder Slings And Tapes - 1 - Sling Desara System Rigoberto-Ds01 Implanted:Qty: 1 on 12/31/2009 at [facility] Sling N/A: Vagina [employer] 07/08/2014 RIGOBERTO-DS01 / / [id number] Description:vaginal apex Log [id number] - Bladder Slings And Tapes - 1 - Sling Desara System Rigoberto-Ds01 Implanted:Qty: 1 on 12/31/2009 at [facility] Sling N/A: Urethra [employer] 11/07/2012 RIGOBERTO-DS01 / / [id number] Description:mid urethra Procedures Procedure Name Priority Date/Time Associated Diagnosis Comments COLONOSCOPY REPORT 05/30/2019 1: 16 PM RECREATION TECHNICIAN XR DEXA BONE DENSITY AXIAL 1 OR MORE SITES Routine 06/11/2015 9:09 AM RECREATION TECHNICIAN Age-related osteoporosis without current pathological fracture from Last 3 Months or Most Recently Relevant to Health Maintenance Results * COLONOSCOPY REPORT (05/30/2019 1:16 PM RECREATION TECHNICIAN) Narrative Procedure Note John Prado MD - 05/30/2019 1:15 PM CST [facility] Endoscopy Patient Name: Arabella Hankins [...] of Addenda: [address]; [place] [address] John Prado MD GI PROCEDURE ORDERABLES Final Re sult * XR DEXA BONE DENSITY AXIAL 1 OR MORE SITES (06/11/2015 9:09 AM RECREATION TECHNICIAN) Anatomical Region Laterality Modality Digital Radiogra phy 06/11/2015 8:58 AM RECREATION TECHNICIAN Narrative 06/11/2015 11:50 AM RECREATION TECHNICIAN XR DEXA BONE DENSITY AXIAL 1 OR MORE SITES Dictated from Location 1 ([facility]) HISTORY 65 year-old F with post menopausal symptoms. PROCEDURE: Planar images of the lumbar spine and hip(s) using a MATIvision DEXA scanner for bone mineral density determination (BMD). Compared to the prior bone density performed 07/16/2008 FINDINGS: Lumbar Spine (L1-L4) 1.494 gm/cm2, T-score: +2.6 Prior: 1.421 gm/cm2, +5.1% change Left femoral neck 1.109 gm/cm2, T-score: +0.5 Prior: 1.164 gm/cm2, -4.7% change Right femoral neck 1.116 gm/cm2, T-score: +0.6 Prior: 1.196 gm/cm2, -6.7% change Comments: None. Detailed report placed in Imaging Section of [facility] EMR. IMPRESSION Normal BMD. Lumbar Spine T-score: [...] OR MORE SITES Dictated from Location 1 ([facility]) HISTORY 65 year-old F with post menopausal symptoms. PROCEDURE: Planar images of the lumbar spine and hip(s) using a MATIvision DEXA scanner for bone mineral density determination (BMD). Compared to the prior bone density performed 07/16/2008 FINDINGS: Lumbar Spine (L1-L4) 1.494 gm/cm2, T-score: +2.6 Prior: 1.421 gm/cm2, +5.1% change Left femoral neck 1.109 gm/cm2, T-score: +0.5 Prior: 1.164 gm/cm2, -4.7% change Right femoral neck 1.116 gm/cm2, T-score: +0.6 Prior: 1.196 gm/cm2, -6.7% change Comments: None. Detailed report placed in Imaging Section of [facility] EMR. IMPRESSION Normal BMD. Lumbar Spine T-score: [...] Advance Directives For more information, please contact: [phone] Documents on File Type Date Recorded Patient Principal Mechanical Engineer Expl anation Advance Directive POA 12/31/2009 5:41 [...]
--- OUTSIDE RECORDS SUMMARY | 2025-03-09 09:12 | XMS_ITS | Encounter Summary ---
Author Organization [facility] Address [address] [place] [address] Care Team Providers Care Mammal Keeper Name Role Phone Michael Smith MD Primary Care Provider Encounter Details Date Type Department Care Team (Late st Contact Info) Description 10/07/[address] [facility] Internal Medicine [address] [place] [address] Michael Smith MD [address] [place] [address] Social History Tobacco Use Types Packs/Day Years Used Date Smoking Tobacco: Never Assessed Comments Unknown Sex and Gender Information Value Date Recorded Sex Assigned at Not on file Legal Sex Female 4:52 AM CONCERT PROMOTER Gender Identity Not on file Sexual Orientation Not on file documented as of this encounter Plan of Treatment Not on file documented as of this encounter Visit Diagnoses Not on filedocumented in this encounter Additional Health Concerns Infection Onset Date Last Indicated Resolved Time R/O COVID-19 05/17/2020 05/20/2020 05/20/2020 3:21 PM CONCERT PROMOTER documented as of this encounter Care Teams Mammal Keeper Relationship Specialty Start Date End Date Michael Smith MD [address] [place] [address] PCP - General 04/28/01 10/23/20 documented as of this encounter
--- OUTSIDE RECORDS SUMMARY | 2025-03-09 09:12 | XMS_ITS | Encounter Summary ---
Author Organization [facility] Healthcare Address [address] [place] [address] Care Team Providers Care Sales Representative Marine Supplies Name Role Phone Roxanne Werner MD Unavailable Ata Bronson DPM Unavailable Meir Ibrahim MD Primary Care Provider [phone] Encounter Details Date Type Department Care Team (Late st Contact Info) Description 02/14/2025 Results Follow-Up Cataract Seismograph Operator [address] [address] Roxanne Werner MD [address] [place] [address] Protime-INR, Basic metabolic panel, eGFR Social History [...] on file Legal Sex Female 2:53 PM PORTABLE TRACK LINE MARKER Gender Identity Female 08/19/2020 7:43 PM CDT Sexual Orientation Straight 09/24/2020 8: 49 AM CDT 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
--- OUTSIDE RECORDS SUMMARY | 2025-03-09 09:12 | XMS_ITS | Encounter Summary ---
Author Organization [facility] Address [address] [place] [address] Care Team Providers Care Blade Worker Name Role Phone Michael Smith MD Primary Care Provider [phone] Reason for Visit * Reason Comments Medication Refill Encounter Details Date Type Department Care Team (Late st Contact Info) Description 04/04/2018 Refill [facility] Primary Care - [place] [address] [facility] [address] [place] [address] Michael Smith MD 300 [facility] [address] [place] [address] Social History Tobacco Use Types Packs/Day Years Used Date Smoking Tobacco: Never Smokeless Tobacco: Never Alcohol Use Standard Drinks/Week Comments No 0 (1 standard drink = 0.6 oz pur e alcohol) Comments No Sex and Gender Information Value Date Recorded Sex Assigned at Not on file Legal Sex Female 4:52 AM ZOOGLER Gender Identity Not on file Sexual Orientation Not on file Occupation Industry Job Start Date Job End Date Not on file Not on file Not on file Not on file documented as of this encounter Miscellaneous Notes * Telephone Encounter - Ayse Ward - 04/05/2018 7:06 AM CST Last ov-06/28/2017 Last refill- 05/31/2017 LER documented in this encounter Plan of Treatment Not on file documented as of this encounter Visit Diagnoses Not on filedocumented in this encounter Additional Health Concerns Infection Onset Date Last Indicated Resolved Time R/O COVID-19 05/17/2020 05/20/2020 05/20/2020 3:21 PM ZOOGLER documented as of this encounter Care Teams Blade Worker Relationship Specialty Start Date End Date Michael Smith MD [address] [facility] [address] [place] [address] PCP - General 04/28/01 10/23/20 documented as of this encounter
--- OUTSIDE RECORDS SUMMARY | 2025-03-09 09:12 | XMS_ITS | Encounter Summary ---
Author Organization [facility] Address [address] [place] [address] Care Team Providers Care Wood Pile Driver Operator Name Role Phone Michael Smith MD Primary Care Provider [phone] Encounter Details Date Type Department Care Team (Late st Contact Info) Description 01/30/2005 Outpatient Historical [facility] Internal Medicine [address] [place] [address] Michael Smith MD [address] [place] [address] Social History Tobacco Use Types Packs/Day Years Used Date Smoking Tobacco: Never Assessed Comments Unknown Sex and Gender Information Value Date Recorded Sex Assigned at Not on file Legal Sex Female 4:52 AM CONCRETE CARPENTER Gender Identity Not on file Sexual Orientation Not on file documented as of this encounter Plan of Treatment Not on file documented as of this encounter Visit Diagnoses Not on filedocumented in this encounter Additional Health Concerns Infection Onset Date Last Indicated Resolved Time R/O COVID-19 05/17/2020 05/20/2020 05/20/2020 3:21 PM CONCRETE CARPENTER documented as of this encounter Care Teams Wood Pile Driver Operator Relationship Specialty Start Date End Date Michael Smith MD [address] [place] [address] PCP - General 04/28/01 10/23/20 documented as of this encounter
--- OUTSIDE RECORDS SUMMARY | 2025-03-09 09:12 | XMS_ITS | Encounter Summary ---
Author Organization [facility] Address [address] [place] [address] Care Team Providers Care Binder And Wrapper Packer Name Role Phone Michael Smith MD Primary Care Provider [phone] Encounter Details Date Type Department Care Team (Late st Contact Info) Description 05/31/2007 Outpatient Historical [facility] Internal Medicine [address] [place] [address] Michael Smith MD [address] [place] [address] Social History Tobacco Use Types Packs/Day Years Used Date Smoking Tobacco: Never Assessed Comments Unknown Sex and Gender Information Value Date Recorded Sex Assigned at Not on file Legal Sex Female 4:52 AM OCEANOGRAPHER PHYSICAL Gender Identity Not on file Sexual Orientation Not on file documented as of this encounter Plan of Treatment Not on file documented as of this encounter Visit Diagnoses Not on filedocumented in this encounter Additional Health Concerns Infection Onset Date Last Indicated Resolved Time R/O COVID-19 05/17/2020 05/20/2020 05/20/2020 3:21 PM OCEANOGRAPHER PHYSICAL documented as of this encounter Care Teams Binder And Wrapper Packer Relationship Specialty Start Date End Date Michael Smith MD [address] [place] [address] PCP - General 04/28/01 10/23/20 documented as of this encounter
--- OUTSIDE RECORDS SUMMARY | 2025-03-09 09:12 | XMS_ITS | Encounter Summary ---
Author Organization [facility] Address [address] [place] [address] Care Team Providers Care Latrine Cleaner Name Role Phone Perry Smith MD Primary Care Provider [phone] Encounter Details Date Type Department Care Team (Latest Contact Info) Description 07/16/2008 Outpatient Historical [facility] Carie Vásquez MD [address] [facility] [address] [place] [address] Other Specified Menopausal and Postmenopausal Disorder Social History Tobacco Use Types Packs/Day Years Used Date Smoking Tobacco: Never Comments No Sex and Gender Information Value Date Recorded Sex Assigned at Not on file Legal Sex Female 4:52 AM INTERIOR ASSEMBLIES INSTALLER Gender Identity Not on file Sexual [...] PM CDT Narrative 07/16/2008 4:46 PM CDT [facility] [address] [place], [place] [address] Admit Date: 07/16/2008 MENDEZJOHNATHAN BECKERBOSSMAN [place] Sex: F Admit Prov: CARIE VÁSQUEZ Date: 1950 Primary Care Prov: PERRY SMITH CMRN: [id number] Room: [facility] SSN: [address] [place] [address] IMAGING SERVICES Ordering Prov: N/A Accession Number: [id number] Interpretation BONE MINERAL DENSITY (DEXA) HISTORY: 58 year old female with postmenopausal symptoms needing evaluation for osteoporosis. PROCEDURE: Using a [employer] dual energy x-ray absorptiometry system, the patient's [...] 16:44 Procedure Note Paty Dill - 07/16/2008 [facility] [place] [address] [place] [address] Admit Date: 07/16/2008 ARABELLA MENDEZ Sex: F Admit Prov: SUELLEN CARIE Bates Date: 1950 Primary Care Prov: PERRY SMITH CMRN: [id number] Room: [facility] SSN: [id number] IMAGING SERVICES Ordering Prov: N/A Interpretation BONE MINERAL DENSITY (DEXA) HISTORY: 58 year old female with postmenopausal symptoms needing evaluationfor osteoporosis. PROCEDURE: Using a [employer] dual energy x-ray absorptiometry system, the patient's [...] Time R/O COVID-19 05/17/2020 05/20/202005/2005/20/2020 3:21 PM INTERIOR ASSEMBLIES INSTALLER documented as of this encounter Care Teams Latrine Cleaner Relationship Specialty Start Date End Date Perry Smith MD 300 [facility] [address] [facility] [place] [address] PCP - General 04/28/01 10/23/20 documented as of this encounter
--- OUTSIDE RECORDS SUMMARY | 2025-03-09 09:12 | XMS_ITS | Encounter Summary ---
Author Organization [facility] Address [address] [place] [address] Care Team Providers Care Prosthetic Aides Teacher Name Role Phone Michael Smith MD Primary Care Provider [phone] Encounter Details Date Type Department Care Team (Late st Contact Info) Description 04/11/2007 Outpatient Historical [facility] Internal Medicine [address] [place] [address] Michael Smith MD [address] [facility] [address] [place] [address] Social History Tobacco Use Types Packs/Day Years Used Date Smoking Tobacco: Never Assessed Comments Unknown Sex and Gender Information Value Date Recorded Sex Assigned at Not on file Legal Sex Female 4:52 AM PATIENT SUPPORT REPRESENTATIVE Gender Identity Not on file Sexual Orientation Not on file documented as of this encounter Last Filed Vital Signs Vital Sign Reading Time Taken Comments Blood Pressure 150/92 04/11/2007 10:45 AM PATIENT SUPPORT REPRESENTATIVE Pulse 55 04/11/2007 10:45 AM PATIENT SUPPORT REPRESENTATIVE Temperature - - Respiratory Rate - - Oxygen Saturation - - Inhaled Oxygen Concentration - - Weight 85.3 kg (188 lb) 04/11/2007 10:45 AM PATIENT SUPPORT REPRESENTATIVE Height - - Body Mass Index - - documented in this encounter Plan of Treatment Not on file documented as of this encounter Visit Diagnoses Not on filedocumented in this encounter Additional Health Concerns Infection Onset Date Last Indicated Resolved Time R/O COVID-19 05/17/2020 05/20/2020 05/20/2020 3:21 PM PATIENT SUPPORT REPRESENTATIVE documented as of this encounter Care Teams Prosthetic Aides Teacher Relationship Specialty Start Date End Date Michael Smith MD [address] [facility] [address] [place] [address] PCP - General 04/28/01 10/23/20 documented as of this encounter
--- OUTSIDE RECORDS SUMMARY | 2025-03-09 09:12 | XMS_ITS | Encounter Summary ---
Author Organization [facility] Address [address] [place] [address] Care Team Providers Care Executive Compensation Analyst Name Role Phone Michael Smith MD Primary Care Provider [phone] Reason for Visit * Reason Comments Medication Refill Encounter Details Date Type Department Care Team (Late st Contact Info) Description 04/26/2018 Refill [facility] Primary Care - [place] [address] [facility] [address] [place] [address] Michael Smith MD 300 [facility] [address] [place] [address] Social History Tobacco Use Types Packs/Day Years Used Date Smoking Tobacco: Never Smokeless Tobacco: Never Alcohol Use Standard Drinks/Week Comments No 0 (1 standard drink = 0.6 oz pur e alcohol) Comments No Sex and Gender Information Value Date Recorded Sex Assigned at Not on file Legal Sex Female 4:52 AM DIESEL FLEET MECHANIC Gender Identity Not on file Sexual Orientation Not on file Occupation Industry Job Start Date Job End Date Not on file Not on file Not on file Not on file documented as of this encounter Miscellaneous Notes * Telephone Encounter - Ayse Ward - 04/26/2018 1:50 PM CST Last ov- 06/28/2017 Last refill- 04/13/2017 EL FLEET MECHANIC documented in this encounter Plan of Treatment Not on file documented as of this encounter Visit Diagnoses Not on filedocumented in this encounter Additional Health Concerns Infection Onset Date Last Indicated Resolved Time R/O COVID-19 05/17/2020 05/20/2020 05/20/2020 3:21 PM DIESEL FLEET MECHANIC documented as of this encounter Care Teams Executive Compensation Analyst Relationship Specialty Start Date End Date Micheal Smith MD [address] [facility] [address] [place] [address] PCP - General 04/28/01 10/23/20 documented as of this encounter
--- OUTSIDE RECORDS SUMMARY | 2025-03-09 09:12 | XMS_ITS | Encounter Summary ---
Author Organization [facility] Address [address] [place] [address] Care Team Providers Care Child Welfare Manager Name Role Phone Michael Smith MD Primary Care Provider [phone] Encounter Details Date Type Department Care Team (Late st Contact Info) Description 04/11/[address] [facility] Internal Medicine [address] [place] [address] Michael Smith MD [address] [facility] [address] [place] [address] Social History Tobacco Use Types Packs/Day Years Used Date Smoking Tobacco: Never Assessed Comments Unknown Sex and Gender Information Value Date Recorded Sex Assigned at Not on file Legal Sex Female 4:52 AM MANAGER INPATIENT Gender Identity Not on file Sexual Orientation [...] with her activity level. CURRENT MEDICATION LIST: [id number] ORAL TABLET 50-325-40 MG, Take one tablet [...] and adenoids. PHYSICAL EXAMINATION: CONSTITUTIONAL: GENERAL APPEARANCE: -Niuean female, normal body habitus. NECK/THYROID: TOTAL THYROIDECTOMY. [...] SPECIALTY REFERRAL: PODIATRY Dr. Ata Reeder: ph: [phone] fax: [phone] [place]: ph: [phone] fax: [phone] [place]: ph: [phone] fax: [phone].Sent to [facility]. [facility]. Electronically Signed by: Michael Smith MD on Friday, May 11, 2007 documented in this encounter Plan of Treatment Not on file documented as of this encounter Visit Diagnoses Not on filedocumented in this encounter Additional Health Concerns Infection Onset Date Last Indicated Resolved Time R/O COVID-19 05/17/2020 05/20/2020 05/20/2020 3:21 PM MANAGER INPATIENT documented as of this encounter Care Teams Child Welfare Manager Relationship Specialty Start Date End Date Michael Smith MD [address] [facility] [address] [place] [address] PCP - General 04/28/01 10/23/20 documented as of this encounter
--- OUTSIDE RECORDS SUMMARY | 2025-03-09 09:12 | XMS_ITS | Encounter Summary ---
Author Organization [facility] Address [address] [place] [address] Care Team Providers Care Heel Seat Fitter Machine Name Role Phone Michael Smith MD Primary Care Provider [phone] Encounter Details Date Type Department Care Team (Late st Contact Info) Description 03/08/2006 Orders Only [facility] Internal Medicine [address] [place] [address] Michael Smith MD [address] [facility] [address] [place] [address] Social History Tobacco Use Types Packs/Day Years Used Date Smoking Tobacco: Never Assessed Comments Unknown Sex and Gender Information Value Date Recorded Sex Assigned at Not on file Legal Sex Female 4:52 AM PHOTOGRAPHIC HAND DEVELOPER Gender Identity Not on file Sexual [...] may have bruised it. CURRENT MEDICATION LIST: [id number] ORAL TABLET 50-325-40 MG, Take one tablet [...] golfing, walking. PHYSICAL EXAMINATION: CONSTITUTIONAL: GENERAL APPEARANCE: -Nauruan female, in no acute distress. EYES: PUPILS: [...] No edema. BREAST/CHEST: EXAM DONE BY PATIENT'S FAMILY DEVELOPMENT EXTENSION SPECIALIST. LYMPHATICS: No lymphadenopathy in the neck, axillae, or groin. GASTROINTESTINAL: ABDOMEN: Soft, non-tender, without masses. Bowel sounds active. LIVER/SPLEEN/KIDNEY: No hepatosplenomegaly, tenderness or nodularity. Kidneys not palpable. GENITOURINARY: EXTERNAL/VAGINAL: GENITAL EXAMINATION NOT DONE, PATIENT'S EXAM PERFORMED BY HER FAMILY DEVELOPMENT EXTENSION SPECIALIST. MUSCULOSKELETAL EXAM: GAIT/STATION: Normal gait. EXTREMITIES: LEFT [...] or tightening. Wears wig NEUROLOGIC: CRANIAL NERVES: 911 dispatcher II-XII grossly intact. SENSATION: Normal vibration sensation [...] 1000mcg per month. LAB ORDERS: Order number: [id number] Test Ordered: CBC (INCLUDES DIFF/PLT) 6399 Order number: [id number] Test Ordered: VITAMIN B12 927 401.1-HYPERTENSION ESSENTIAL BENIGN ASSESSMENT: The blood pressure remains satisfactory. Will not change medication, continue to monitor for complications. Will check laboratory to assess disease effect, to assess medication effect. LAB ORDERS: Order number: [id number] Test Ordered: COMPREHENSIVE METABOLIC PANEL 37993 Order number: [id number] Test Ordered: LIPID PANEL 7600 Order number: [id number] Test Ordered: URINALYSIS, COMPLETE 5463 244.9-HYPOTHYROIDISM ASSESSMENT: The patient appears stable. Will follow for signs of hypothyroidism. Will not change medication, continue to monitor for complications. Will check laboratory for possible medication adjustment. LAB ORDERS: Order number: [id number] Test Ordered: TSH 899 396.9-DISEASES OF MITRAL AND AORTIC VALVES ASSESSMENT: Stable clinically. ECHO done last year. She has no symptoms and has good valve action. She is to take antibiotic prophylaxis. I think an echo next year will be adequate. LAB ORDERS: Order number: [id number] Test Ordered: EKG WITH INTERPRETATION AND REPORT 39329 719.44-OTHER AND UNSPECIFIED DISORDERS OF JOINT ASSESSMENT: Suspect contusion of the thumb. This should heal with no difficulty. If failing to improve with rest over two weeks she will call. V06.1-NEED FOR VACCINE [id number] LAB ORDERS: Order number: [id number] Test Ordered: INJ-TDAP 11 YRS OR OLDER 90519 211.3-COLON POLYP(S) ASSESSMENT: She is aware of [...] R/O COVID-19 05/17/2020 05/20/2020 05/20/2020 3:21 PM PHOTOGRAPHIC HAND DEVELOPER documented as of this encounter Care Teams Heel Seat Fitter Machine Relationship Specialty Start Date End Date Michael Smith MD 300 [facility] [address] [place] [address] PCP - General 04/28/01 10/23/20 documented as of this encounter
--- OUTSIDE RECORDS SUMMARY | 2025-03-09 09:12 | XMS_ITS | Encounter Summary ---
Author Organization [facility] Address [address] Attn: Epic Prelude ADT CELESTE SABA [address] Care Team Providers Care Tire Service Supervisor Name Role Phone Michael Smith MD Primary Care Provider Encounter Details Date Type Department Care Team (Late st Contact Info) Description 08/07/1992 Outpatient Historical Michael Smith MD [address] [place] [address] Social History Tobacco Use Types Packs/Day Years Used Date Smoking Tobacco: Never Assessed Comments Unknown Sex and Gender Information Value Date Recorded Sex Assigned at Not on file Legal Sex Female 4:52 AM SALES AND MARKETING ANALYST Gender Identity Not on file Sexual Orientation Not on file documented as of this encounter Plan of Treatment Not on file documented as of this encounter Visit Diagnoses Not on filedocumented in this encounter Additional Health Concerns Infection Onset Date Last Indicated Resolved Time R/O COVID-19 05/17/2020 05/20/2020 05/20/2020 3:21 PM SALES AND MARKETING ANALYST documented as of this encounter Care Teams Tire Service Supervisor Relationship Specialty Start Date End Date Michael Smith MD [address] [place] [address] PCP - General 04/28/01 10/23/20 documented as of this encounter
--- OUTSIDE RECORDS SUMMARY | 2025-03-09 09:12 | XMS_ITS | Encounter Summary ---
Author Organization [facility] Address [address] [place] [address] Care Team Providers Care Drill Instructor Name Role Phone Michael Smith MD Primary Care Provider [phone] Encounter Details Date Type Department Care Team (Late st Contact Info) Description 06/14/2018 [facility] Outpatient Visit [facility] [address] [place] [address] [place] [address] [address] Social History Tobacco Use Types [...] on filedocumented in this encounter Care Teams Drill Instructor Relationship Specialty Start Date End Date Michael Smith MD PCP - General Internal Medicine 10/13/12 documented as of this encounter
--- OUTSIDE RECORDS SUMMARY | 2025-03-09 09:12 | XMS_ITS | Encounter Summary ---
Author Organization [facility] Address [address] [place] [address] Care Team Providers Care Pulp Piler Name Role Phone Michael Smith MD Primary Care Provider [phone] Encounter Details Date Type Department Care Team (Late st Contact Info) Description 03/07/2004 Outpatient Historical [facility] Internal Medicine [address] [place] [address] Michael Smith MD [address] [place] [address] Social History Tobacco Use Types Packs/Day Years Used Date Smoking Tobacco: Never Assessed Comments Unknown Sex and Gender Information Value Date Recorded Sex Assigned at Not on file Legal Sex Female 4:52 AM VETERINARY PRACTITIONER Gender Identity Not on file Sexual Orientation Not on file documented as of this encounter Plan of Treatment Not on file documented as of this encounter Visit Diagnoses Not on filedocumented in this encounter Additional Health Concerns Infection Onset Date Last Indicated Resolved Time R/O COVID-19 05/17/2020 05/20/2020 05/20/2020 3:21 PM VETERINARY PRACTITIONER documented as of this encounter Care Teams Pulp Piler Relationship Specialty Start Date End Date Michael Smith MD [address] [place] [address] PCP - General 04/28/01 10/23/20 documented as of this encounter
--- OUTSIDE RECORDS SUMMARY | 2025-03-09 09:12 | XMS_ITS | Encounter Summary ---
Author Organization [facility] Address [address] [place] [address] Care Team Providers Care Buffing Line Set Up Worker Name Role Phone Michael Smith MD Primary Care Provider [phone] Encounter Details Date Type Department Care Team (Late st Contact Info) Description 02/19/[address] [facility] Internal Medicine [address] [place] [address] Michael Smith MD [address] [place] [address] Social History Tobacco Use Types Packs/Day Years Used Date Smoking Tobacco: Never Assessed Comments Unknown Sex and Gender Information Value Date Recorded Sex Assigned at Not on file Legal Sex Female 4:52 AM DIRECTOR MBA Gender Identity Not on file Sexual Orientation Not on file documented as of this encounter Plan of Treatment Not on file documented as of this encounter Visit Diagnoses Not on filedocumented in this encounter Additional Health Concerns Infection Onset Date Last Indicated Resolved Time R/O COVID-19 05/17/2020 05/20/2020 05/20/2020 3:21 PM DIRECTOR MBA documented as of this encounter Care Teams Buffing Line Set Up Worker Relationship Specialty Start Date End Date Michael Smith MD [address] [place] [address] PCP - General 04/28/01 10/23/20 documented as of this encounter
--- OUTSIDE RECORDS SUMMARY | 2025-03-09 09:12 | XMS_ITS | Encounter Summary ---
Author Organization [facility] Address [address] [place] [address] Care Team Providers Care Agency Operator Name Role Phone Michael Smith MD Primary Care Provider [phone] Encounter Details Date Type Department Care Team (Late st Contact Info) Description 01/26/2001 Outpatient Historical [facility] Michael Torres MD [address] [place] [address] Social History Tobacco Use Types Packs/Day Years Used Date Smoking Tobacco: Never Assessed Comments Unknown Sex and Gender Information Value Date Recorded Sex Assigned at Not on file Legal Sex Female 4:52 AM DISPENSARY CLERK Gender Identity Not on file Sexual Orientation Not on file documented as of this encounter Plan of Treatment Not on file documented as of this encounter Visit Diagnoses Not on filedocumented in this encounter Additional Health Concerns Infection Onset Date Last Indicated Resolved Time R/O COVID-19 05/17/2020 05/20/2020 05/20/2020 3:21 PM DISPENSARY CLERK documented as of this encounter Care Teams Agency Operator Relationship Specialty Start Date End Date Michael Smith MD [address] [place] [address] PCP - General 04/28/01 10/23/20 documented as of this encounter
--- OUTSIDE RECORDS SUMMARY | 2025-03-09 09:12 | XMS_ITS | Encounter Summary ---
Author Organization [facility] Address [address] [place] [address] Care Team Providers Care Performance Instructor Name Role Phone Michael Smith MD Primary Care Provider [phone] Encounter Details Date Type Department Care Team (Late st Contact Info) Description 10/06/2007 Orders Only [facility] Internal Medicine [address] [place] [address] Michael Smith MD [address] [place] [address] Social History Tobacco Use Types Packs/Day Years Used Date Smoking Tobacco: Never Assessed Comments Unknown Sex and Gender Information Value Date Recorded Sex Assigned at Not on file Legal Sex Female 4:52 AM DIE MAKER TRIM Gender Identity Not on file Sexual Orientation Not on file documented as of this encounter Plan of Treatment Not on file documented as of this encounter Visit Diagnoses Not on filedocumented in this encounter Additional Health Concerns Infection Onset Date Last Indicated Resolved Time R/O COVID-19 05/17/2020 05/20/2020 05/20/2020 3:21 PM DIE MAKER TRIM documented as of this encounter Care Teams Performance Instructor Relationship Specialty Start Date End Date Michael Smith MD [address] [place] [address] PCP - General 04/28/01 10/23/20 documented as of this encounter
--- OUTSIDE RECORDS SUMMARY | 2025-03-09 09:12 | XMS_ITS | Encounter Summary ---
Author Organization [facility] Address [address] [place] [address] Care Team Providers Care Egg Breaker Name Role Phone Michael Smith MD Primary Care Provider [phone] Encounter Details Date Type Department Care Team (Late st Contact Info) Description 03/17/2004 Outpatient Historical [facility] Support Serv. (Adt Cardiology-[facility]) [address] [place] [address] Anahi Chaves MD [address] [address] [address] [place] [address] Social History Tobacco Use Types Packs/Day Years Used Date Smoking Tobacco: Never Assessed Comments Unknown Sex and Gender Information Value Date Recorded Sex Assigned at Not on file Legal Sex Female 4:52 AM TRUCK DRIVER'S OFFSIDER Gender Identity Not on file Sexual Orientation Not on file documented as of this encounter Plan of Treatment Not on file documented as of this encounter Visit Diagnoses Not on filedocumented in this encounter Additional Health Concerns Infection Onset Date Last Indicated Resolved Time R/O COVID-19 05/17/2020 05/20/2020 05/20/2020 3:21 PM TRUCK DRIVER'S OFFSIDER documented as of this encounter Care Teams Egg Breaker Relationship Specialty Start Date End Date Michael Smith MD [address] [facility] [address] [place] [address] PCP - General 04/28/01 10/23/20 documented as of this encounter
--- OUTSIDE RECORDS SUMMARY | 2025-03-09 09:12 | XMS_ITS | Encounter Summary ---
Author Organization [facility] Address [address] [place] [address] Care Team Providers Care Director Federal Name Role Phone Michael Smith MD Primary Care Provider [phone] Encounter Details Date Type Department Care Team (Late st Contact Info) Description 08/17/2006 Outpatient Historical [facility] Internal Medicine [address] [place] [address] Michael Smith MD [address] [facility] [address] [place] [address] Social History Tobacco Use Types Packs/Day Years Used Date Smoking Tobacco: Never Assessed Comments Unknown Sex and Gender Information Value Date Recorded Sex Assigned at Not on file Legal Sex Female 4:52 AM COMMUNITY ADMINISTRATOR Gender Identity Not on file Sexual [...] R/O COVID-19 05/17/2020 05/20/2020 05/20/2020 3:21 PM COMMUNITY ADMINISTRATOR documented as of this encounter Care Teams Director Federal Relationship Specialty Start Date End Date Michael Smith MD [address] [facility] [address] [place] [address] PCP - General 04/28/01 10/23/20 documented as of this encounter
--- OUTSIDE RECORDS SUMMARY | 2025-03-09 09:12 | XMS_ITS | Encounter Summary ---
Author Organization [facility] Address [address] [place] [address] Care Team Providers Care Trailer Body Assembler Name Role Phone Perry Smith MD Primary Care Provider [phone] Encounter Details Date Type Department Care Team (Latest Contact Info) Description 11/03/2007 Outpatient Historical [facility] Carie Ken MD [address] [facility] [address] [place] [address] Other Screening Mammogram Social History Tobacco Use Types Packs/Day Years Used Date Smoking Tobacco: Never Assessed Comments Unknown Sex and Gender Information Value Date Recorded Sex Assigned at Not on file Legal Sex Female 4:52 AM INDUSTRIAL INSULATOR Gender Identity Not on file Sexual Orientation [...] AM CDT Narrative 11/08/2007 9:24 AM CDT [facility] [address] [place], [place] [address] Admit Date: 11/03/2007 ARABELLA MENDEZ Sex: F Admit Prov: CARIE KEN Date: 1950 Primary Care Prov: PERRY SMITH CMRN: [id number] [facility] [address] [place] [address] IMAGING SERVICES Ordering Prov: CARIE KEN Accession Number: [id number] Interpretation BILATERAL FULL FIELD DIGITAL SCREENING MAMMOGRAM [...] Procedure Note Francisco J Rao - 11/08/2007 [facility] [address] [place], [place] [address] Admit Date: 11/03/2007 MARILYNN ARABELLA R Sex: F Admit Prov: CARIE KEN Date: 1950 Primary Care Prov: PERRY SMITH CMRN: [id number] [facility] [address] [place] [address] IMAGING SERVICES Ordering Prov: CAIRE KEN Interpretation BILATERAL FULL FIELD DIGITAL SCREENING [...] R/O COVID-19 05/17/2020 05/20/2020 05/20/2020 3:21 PM INDUSTRIAL INSULATOR documented as of this encounter Care Teams Trailer Body Assembler Relationship Specialty Start Date End Date Perry Smith MD [address] [facility] [address] [place] [address] PCP - General 04/28/01 10/23/20 documented as of this encounter
--- OUTSIDE RECORDS SUMMARY | 2025-03-09 09:12 | XMS_ITS | Encounter Summary ---
Author Organization [facility] Address [address] [place] [address] Care Team Providers Care Hole Digger Name Role Phone Roxanne Werner MD Unavailable [phone] Ata Bronson DPM Unavailable Meir Ibrahim MD Primary Care Provider [phone] Encounter Details Date Type Department Care Team (Late st Contact Info) Description 02/12/2025 Results Follow-Up [place] [employer] Vehicle Operator [address] [place] [address] Laura Machado MA [employer]IN[employer] Social History [...] on file Legal Sex Female 2:53 PM LITHOPRESS OPERATOR Gender Identity Female 08/19/2020 7:43 PM CDT Sexual Orientation Straight 09/24/2020 8: 49 AM CDT 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
--- OUTSIDE RECORDS SUMMARY | 2025-03-09 09:13 | XMS_ITS | Encounter Summary ---
Author Organization [facility] Address [address] [place] [address] Care Team Providers Care Porcelain Enamel Laborer Name Role Phone Michael Smith MD Primary Care Provider [phone] Encounter Details Date Type Department Care Team (Late st Contact Info) Description 02/10/2005 Outpatient Historical [facility] Internal Medicine [address] [place] [address] Michael Smith MD [address] [place] [address] Social History Tobacco Use Types Packs/Day Years Used Date Smoking Tobacco: Never Assessed Comments Unknown Sex and Gender Information Value Date Recorded Sex Assigned at Not on file Legal Sex Female 4:52 AM LIGHTNING ROD ERECTOR Gender Identity Not on file Sexual Orientation Not on file documented as of this encounter Plan of Treatment Not on file documented as of this encounter Visit Diagnoses Not on filedocumented in this encounter Additional Health Concerns Infection Onset Date Last Indicated Resolved Time R/O COVID-19 05/17/2020 05/20/2020 05/20/2020 3:21 PM LIGHTNING ROD ERECTOR documented as of this encounter Care Teams Porcelain Enamel Laborer Relationship Specialty Start Date End Date Michael Smith MD [address] [place] [address] PCP - General 04/28/01 10/23/20 documented as of this encounter
--- OUTSIDE RECORDS SUMMARY | 2025-03-09 09:13 | XMS_ITS | Encounter Summary ---
Author Organization [facility] Address [address] [place] [address] Care Team Providers Care Pit Tanner Name Role Phone Michael Smith MD Primary Care Provider [phone] Encounter Details Date Type Department Care Team (Latest Contact Info) Description 09/29/2005 Outpatient Historical [facility] Jonel Vásquez MD [address] [facility] [address] [place] [address] Other Screening Mammogram (Primary Dx) Social History Tobacco Use Types Packs/Day Years Used Date Smoking Tobacco: Never Assessed Comments Unknown Sex and Gender Information Value Date Recorded Sex Assigned at Not on file Legal Sex Female 4:52 AM PROJECT MANAGEMENT MANAGER Gender Identity Not on file Sexual Orientation Not on file documented as of this encounter Plan of Treatment Not on file documented as of this encounter Visit Diagnoses Diagnosis Other screening mammogram- Primary documented in this encounter Additional Health Concerns Infection Onset Date Last Indicated Resolved Time R/O COVID-19 05/17/2020 05/20/2020 05/20/2020 3:21 PM PROJECT MANAGEMENT MANAGER documented as of this encounter Care Teams Pit Tanner Relationship Specialty Start Date End Date Michael Smith MD [address] [facility] [address] [place] [address] PCP - General 04/28/01 10/23/20 documented as of this encounter
--- OUTSIDE RECORDS SUMMARY | 2025-03-09 09:13 | XMS_ITS | Encounter Summary ---
Author Organization [facility] Address [address] [place] [address] Care Team Providers Care Power Nut Runner Operator Name Role Phone Michael Smith MD Primary Care Provider [phone] Encounter Details Date Type Department Care Team (Latest Contact Info) Description 10/14/[address] [facility] Jonel Mulligan MD [address] [facility] [address] [place] [address] Diffuse Cystic Mastopathy (Primary Dx) Social History Tobacco Use Types Packs/Day Years Used Date Smoking Tobacco: Never Assessed Comments Unknown Sex and Gender Information Value Date Recorded Sex Assigned at Not on file Legal Sex Female 4:52 AM CHAMBER OF COMMERCE DIVISION MANAGER Gender Identity Not on file Sexual Orientation Not on file documented as of this encounter Plan of Treatment Not on file documented as of this encounter Visit Diagnoses Diagnosis Diffuse cystic mastopathy- Primary documented in this encounter Additional Health Concerns Infection Onset Date Last Indicated Resolved Time R/O COVID-19 05/17/2020 05/20/2020 05/20/2020 3:21 PM CHAMBER OF COMMERCE DIVISION MANAGER documented as of this encounter Care Teams Power Nut Runner Operator Relationship Specialty Start Date End Date Michael Smith MD [address] [place] [address] PCP - General 04/28/01 10/23/20 documented as of this encounter
--- OUTSIDE RECORDS SUMMARY | 2025-03-09 09:13 | XMS_ITS | Encounter Summary ---
Author Organization [facility] Address [address] [place] [address] Care Team Providers Care Hand Wood Sander Name Role Phone Michael Smith MD Primary Care Provider [phone] Encounter Details Date Type Department Care Team (Late st Contact Info) Description 11/13/2005 Orders Only [facility] [address] [place] [address] Michael Smith MD [address] [place] [address] Social History Tobacco Use Types Packs/Day Years Used Date Smoking Tobacco: Never Assessed Comments Unknown Sex and Gender Information Value Date Recorded Sex Assigned at Not on file Legal Sex Female 4:52 AM JEWELRY MAKER Gender Identity Not on file Sexual Orientation Not on file documented as of this encounter Plan of Treatment Not on file documented as of this encounter Visit Diagnoses Not on filedocumented in this encounter Additional Health Concerns Infection Onset Date Last Indicated Resolved Time R/O COVID-19 05/17/2020 05/20/2020 05/20/2020 3:21 PM JEWELRY MAKER documented as of this encounter Care Teams Hand Wood Sander Relationship Specialty Start Date End Date Michael Smith MD [address] [place] [address] PCP - General 04/28/01 10/23/20 documented as of this encounter
--- OUTSIDE RECORDS SUMMARY | 2025-03-09 09:13 | XMS_ITS | Encounter Summary ---
Author Organization [facility] Address [address] [place] [address] Care Team Providers Care Custodian Supervisor Name Role Phone Michael Smith MD Primary Care Provider [phone] Encounter Details Date Type Department Care Team (Late st Contact Info) Description 12/03/2005 Outpatient Historical [facility] Internal Medicine [address] [place] [address] Michael Smith MD [address] [facility] [address] [place] [address] Social History Tobacco Use Types Packs/Day Years Used Date Smoking Tobacco: Never Assessed Comments Unknown Sex and Gender Information Value Date Recorded Sex Assigned at Not on file Legal Sex Female 4:52 AM FRAME TABLE OPERATOR HELPER Gender Identity Not on file [...] R/O COVID-19 05/17/2020 05/20/2020 05/20/2020 3:21 PM FRAME TABLE OPERATOR HELPER documented as of this encounter Care Teams Custodian Supervisor Relationship Specialty Start Date End Date Michael Smith MD [address] [facility] [address] [place] [address] PCP - General 04/28/01 10/23/20 documented as of this encounter
--- NOTE | 2025-03-13 11:30 | WPDNEUROLOGY ---
Neurology EEG Report General Information Date of Study: 03/09/25 TEST eeg DIAGNOSIS Syncopal and collapse along with the complaints of headaches. CONDITION OF RECORDING Awake, drowsy and asleep. EEG NUMBER [id number] CLINICAL HISTORY 75 years old lady had a headache attack 1 brain on February 16, 2025. She reported she had pressure on both size of her head and had to be wheeled off the plane and taken to the hospital. Patient stated that beta diagnosed her with migraines. She feels pressure on both sides of her head and sometimes pain behind 1 of her eyes. Tylenol helps 80s done within an hour but she is also sometimes just closes her eyes and stays in a dark room. When entering today, patient states she had a headache on the side of her head and pain behind her right eye. It was gone by the end of the recording. EEG DESCRIPTION Basic resting occipital frequency consists of low to medium voltage 9 to 11 hertz per 2nd alpha admixed with low-voltage 15 to 18 hertz per 2nd beta. Alpha activity Symmetrical he blocked with eyes opening. Bilateral symmetrical sleep his spindles are noted during sleep in addition to the intermittent EKG artifact. photic stimulation produced normal drive And hyperventilation produced normal and symmetrical buildup. Non paroxysmal. Nonfocal. Nonlateralizing. IMPRESSION Normal record. Clinical correlation recommended. Normal EEG does not rule out the possibility of seizures.
== END 2025-03-09 08:53 | disposition home or self-care (01) ==
PROVIDERS: PCP Internal Medicine; Visit Provider Internal Medicine
DX: R55 Syncope and collapse (principal); R51.9 Headache, unspecified
CPT/HCPCS: 95816

== ENCOUNTER 2025-03-31 07:57 | Outpatient (CLI) | payer MEDICARE, SELFPAY ==
--- NOTE | ~2025-03-31 | MR_ITS ---
EXAMINATION: MRA neck wo con DATE: 03/31/2025 11:27 INDICATION: Syncope and collapse. TECHNIQUE: Magnetic resonance angiography (MRA) of the neck was performed without intravenous contrast. COMPARISON: Ultrasound 04/10/24 FINDINGS: The vertebral arteries are codominant. There is no significant stenosis of the vertebral arteries. There is 0% stenosis of the proximal right internal carotid artery relative to normal distal artery lumen diameter (NASCET criteria). There is 0% stenosis of the proximal left internal carotid artery relative to normal distal artery lumen diameter. IMPRESSION: 1. 0% stenosis of the proximal internal carotid arteries relative to normal distal artery lumen diameters (NASCET criteria). Reviewed, dictated and finalized at location E. ENTER IMPRESSION: 1. 0% stenosis of the proximal internal carotid arteries relative to normal dis ivone artery lumen diameters (NASCET criteria).
--- NOTE | ~2025-03-31 | MR_ITS ---
EXAMINATION: MRA brain wo con DATE: 03/31/2025 11:26 INDICATION: Syncope and collapse. TECHNIQUE: Magnetic resonance angiography (MRA) of the brain was performed without intravenous contrast with T1-weighted SPGR by the 3D [id number] technique. Maximum intensity projection 3D-reconstructions were obtained. COMPARISON: None. FINDINGS: The vertebral arteries are codominant. There is no significant stenosis of basilar artery or the posterior cerebral arteries. There is no significant stenosis of the intracranial internal carotid arteries or anterior or middle cerebral arteries. Anterior communicating artery is normal. The posterior co mmunicating arteries are normal. There is no aneurysm. IMPRESSION: 1. Normal MRA. Reviewed, dictated and finalized at location E. BILITIES CAREGIVER IMPRESSION: 1. Normal MRA.
--- OUTSIDE RECORDS SUMMARY | 2025-03-31 08:01 | XMS_ITS | Clinical Summary ---
Author Organization [facility] Address [address] [facility] [place] [address] Care Team Providers Care Babbitter Name Role Phone Michael Smith MD Primary Care Provider [phone] Source Comments [facility],non-owned Affiliates and Associated Physician Practices is amultiple site organization consisting of ambulatory clinics and hospital sitesin [place], [place], [place] and [place]. This disclosure is being madepursuant to the Care Everywhere program and may not contain all information available regarding this patient. Last updated 18.[facility] Allergies Active Allergy Reactions Criticality Noted Date [...] Comments Blood Pressure 124/60 06/07/2018 7:59 AM ASSOCIATE PRODUCT INTEGRITY ENGINEER Pulse 59 06/07/2018 7:59 AM ASSOCIATE PRODUCT INTEGRITY ENGINEER Temperature 36.9 C (98.5 F) 06/07/2018 7:59 AM ASSOCIATE PRODUCT INTEGRITY ENGINEER Respiratory Rate 16 06/07/2018 7:59 AM ASSOCIATE PRODUCT INTEGRITY ENGINEER Oxygen Saturation 92% 06/07/2018 7:59 AM ASSOCIATE PRODUCT INTEGRITY ENGINEER Inhaled Oxygen Concentration - - Weight 87.1 kg (192 lb) 06/14/2018 8:56 AM ASSOCIATE PRODUCT INTEGRITY ENGINEER Height 172.7 cm (5' 8) 06/14/2018 8:56 AM ASSOCIATE PRODUCT INTEGRITY ENGINEER Body Mass Index 29.19 06/14/2018 8:56 AM ASSOCIATE PRODUCT INTEGRITY ENGINEER Plan of Treatment Health Maintenance Due Date [...] DEPRESSION SCREENING 05/10/2024 COVID-19 VACCINE ( - 2024-2 6 season) 2025 INFLUENZA VACCINE (#1) 2025 HEPATITIS [...] (CALCIUM TOTAL) AM Draw 06/07/2018 1:19 AM ASSOCIATE PRODUCT INTEGRITY ENGINEER from Last 3 Months or Most Recently Relevant to Health Maintenance Results * (ABNORMAL) BASIC METABOLIC PANEL (CALCIUM TOTAL) (06/07/2018 1:19 AM ASSOCIATE PRODUCT INTEGRITY ENGINEER) Glucose 137(H) 74 - 106 mg/dL 06/07/2018 1:44 AM [facility] Sodium 139 136 - 145 mmol/L 06/07/2018 1:44 AM [facility] Potassium 3.0(L) 3.5 - 5.1 mmol/L 06/07/2018 1:44 AM [facility] Chloride 108(H) 98 - 107 mmol/L 06/07/2018 1:44 AM [facility] CO2 25 22 - 31 mmol/L 06/07/2018 1:44 AM [facility] Calcium 8.5 8.5 - 10.1 mg/dL 06/07/2018 1:44 AM [facility] Anion Gap 6(L) 8 - 16 mmol/L 06/07/2018 1:44 AM [facility] BUN 9 7 - 21 mg/dL 06/07/2018 1:44 AM [facility] Creatinine 0.85 0.50 - 1.30 mg/dL 06/07/2018 1:44 AM [facility] eGFR by MDRD >60 mL/min/1.7 3m2 06/07/2018 1:44 AM [facility] eGFR by MDRD >60 mL/min/1.7 3m2 06/07/2018 1:44 AM [facility] Blood BLOOD SPECIMEN / Unknown Venipuncture / Unknown 06/07/2018 1:19 AM ASSOCIATE PRODUCT INTEGRITY ENGINEER 06/07/2018 1:26 AM ASSOCIATE PRODUCT INTEGRITY ENGINEER Fredi Hudson MD LAB - CHEMISTRY ORDERAB LES Final Result [facility] [address] [place] [address] from Last 3 Months or Most Recently Relevant to Health Maintenance Insurance MEDICARE [employer] Advance Directives Documents on File Type Date Recorded Patient Radiologist Expl anation Adv Directive/Living Will/POA 06/08/2018 12:54 PM * Full Code (Latest Code Status on File) Date Activated Date Inactivated Comments 06/06/2018 3:29 PM 06/07/2018 3:41 PM * Full Code Date Activated Date Inactivated Comments 06/05/2018 9:50 PM 06/06/2018 3:29 PM Care Teams Babbitter Relationship Specialty Start Date End Date Michael Smith MD PCP - General Internal Medicine 10/13/12
--- OUTSIDE RECORDS SUMMARY | 2025-03-31 08:02 | XMS_ITS | Encounter Summary ---
Author Organization [facility] Address [address] [place] [address] Care Team Providers Care Inspector Watch Assembly Name Role Phone Michael Smith MD Primary Care Provider [phone] Encounter Details Date Type Department Care Team (Latest Contact Info) Description 10/14/2005 Outpatient Historical [facility] Jonel Mulligan MD [address] [facility] [address] [place] [address] Diffuse Cystic Mastopathy (Primary Dx) Social History Tobacco Use Types Packs/Day Years Used Date Smoking Tobacco: Never Assessed Comments Unknown Sex and Gender Information Value Date Recorded Sex Assigned at Not on file Legal Sex Female 4:52 AM CLOTH WEIGHER Gender Identity Not on file Sexual Orientation Not on file documented as of this encounter Plan of Treatment Not on file documented as of this encounter Visit Diagnoses Diagnosis Diffuse cystic mastopathy- Primary documented in this encounter Additional Health Concerns Infection Onset Date Last Indicated Resolved Time R/O COVID-19 05/17/2020 05/20/2020 05/20/2020 3:21 PM CLOTH WEIGHER documented as of this encounter Care Teams Inspector Watch Assembly Relationship Specialty Start Date End Date Michael Smith MD [address] [facility] [address] [place] [address] PCP - General 04/28/01 10/23/20 documented as of this encounter
--- OUTSIDE RECORDS SUMMARY | 2025-03-31 08:02 | XMS_ITS | Encounter Summary ---
Author Organization [facility] Address [address] [place] [address] Care Team Providers Care Surveyor Helper Rod Name Role Phone Perry Smith MD Primary Care Provider [phone] Encounter Details Date Type Department Care Team (Latest Contact Info) Description 07/16/2008 Outpatient Historical [facility] Carie Ken MD [address] [facility] [address] [place] [address] Other Screening Mammogram Social History Tobacco Use Types Packs/Day Years Used Date Smoking Tobacco: Never Comments No Sex and Gender Information Value Date Recorded Sex Assigned at Not on file Legal Sex Female 4:52 AM FIRE TECHNOLOGY INSTRUCTOR Gender Identity Not on file Sexual Orientation [...] PM CDT Narrative 07/18/2008 8:34 AM CDT [facility] [address] [place], [place] [address] Admit Date: 07/16/2008 ARABELLA MENDEZ Sex: F Admit Prov: CARIE KEN Date: 1950 Primary Care Prov: PERRY SMITH CMRN: [id number] [facility] [address] [place] [address] IMAGING SERVICES Ordering Prov: CARIE KEN Accession Number: [id number] Interpretation BILATERAL SCREENING DIGITAL MAMMOGRAMS WITH COMPUTER [...] AMK Procedure Note Jenn Alvarez - 07/18/2008 [facility] [address] [place], [place] [address] Admit Date: 07/16/2008 ARABELLA MENDEZ Sex: F Admit Prov: CARIE KEN Date: 1950 Primary Care Prov: PERRY SMITH CMRN: [id number] [facility] [address] [place] [address] IMAGING SERVICES Ordering Prov: CARIE KEN Interpretation [...] R/O COVID-19 05/17/2020 05/20/2020 05/20/2020 3:21 PM FIRE TECHNOLOGY INSTRUCTOR documented as of this encounter Care Teams Surveyor Helper Rod Relationship Specialty Start Date End Date Perry Smith MD [address] [facility] [address] [place] [address] PCP - General 04/28/01 10/23/20 documented as of this encounter
--- OUTSIDE RECORDS SUMMARY | 2025-03-31 08:02 | XMS_ITS | Encounter Summary ---
Author Organization [facility] Address [address] [place] [address] Care Team Providers Care Waterfront Director Name Role Phone Michael Smith MD Primary Care Provider [phone] Encounter Details Date Type Department Care Team (Latest Contact Info) Description 11/17/2004 Outpatient Historical [facility] Michael Smith MD [address] [place] [address] CARDIOMEGALY (Primary Dx) Social History Tobacco Use Types Packs/Day Years Used Date Smoking Tobacco: Never Assessed Comments Unknown Sex and Gender Information Value Date Recorded Sex Assigned at Not on file Legal Sex Female 4:52 AM SPINDLE CARVER Gender Identity Not on file Sexual Orientation Not on file documented as of this encounter Plan of Treatment Not on file documented as of this encounter Visit Diagnoses Diagnosis Cardiomegaly- Primary documented in this encounter Additional Health Concerns Infection Onset Date Last Indicated Resolved Time R/O COVID-19 05/17/2020 05/20/2020 05/20/2020 3:21 PM SPINDLE CARVER documented as of this encounter Care Teams Waterfront Director Relationship Specialty Start Date End Date Michael Smith MD [address] [place] [address] PCP - General 04/28/01 10/23/20 documented as of this encounter
--- OUTSIDE RECORDS SUMMARY | 2025-03-31 08:02 | XMS_ITS | Encounter Summary ---
Author Organization [facility] Address [address] [place] [address] Care Team Providers Care Doctor Of Nurse Anesthesia Name Role Phone Michael Smith MD Primary Care Provider [phone] Encounter Details Date Type Department Care Team (Late st Contact Info) Description 04/11/2007 Outpatient Historical [facility] Internal Medicine [address] [place] [address] Michael Smith MD [address] [facility] [address] [place] [address] Social History Tobacco Use Types Packs/Day Years Used Date Smoking Tobacco: Never Assessed Comments Unknown Sex and Gender Information Value Date Recorded Sex Assigned at Not on file Legal Sex Female 4:52 AM GUNNER'S MATE G Gender Identity Not on file Sexual Orientation Not on file documented as of this encounter Last Filed Vital Signs Vital Sign Reading Time Taken Comments Blood Pressure 150/92 04/11/2007 10:45 AM GUNNER'S MATE G Pulse 55 04/11/2007 10:45 AM GUNNER'S MATE G Temperature - - Respiratory Rate - - Oxygen Saturation - - Inhaled Oxygen Concentration - - Weight 85.3 kg (188 lb) 04/11/2007 10:45 AM GUNNER'S MATE G Height - - Body Mass Index - - documented in this encounter Plan of Treatment Not on file documented as of this encounter Visit Diagnoses Not on filedocumented in this encounter Additional Health Concerns Infection Onset Date Last Indicated Resolved Time R/O COVID-19 05/17/2020 05/20/2020 05/20/2020 3:21 PM GUNNER'S MATE G documented as of this encounter Care Teams Doctor Of Nurse Anesthesia Relationship Specialty Start Date End Date Michael Smith MD [address] [facility] [address] [place] [address] PCP - General 04/28/01 10/23/20 documented as of this encounter
--- OUTSIDE RECORDS SUMMARY | 2025-03-31 08:02 | XMS_ITS | Clinical Summary ---
Author Organization [facility] Address [address] [place] [address] Care Team Providers Care Automotive Parts Interpreter Name Role Phone Yesi Reddy CATERING SOUS CHEF Primary Care Provider [phone] Allergies Active Allergy Reactions Criticality Noted Date Comments Sulfa Antibiotics Itching 03/08/2023 Medications apixaban (ELIQUIS) 5 MG tablet Take 5 mg by mouth in the morning and 5 mg in the evening. Active cholecalciferol (VITAMIN D-3) 1.25 MG (96779 UT) capsule Take 50,000 Units by mouth [...] age to complete this topic Care Teams Automotive Parts Interpreter Relationship Specialty Start Date End Date Yesi Reddy FNP [address] [place] [address] PCP - General Nurse Practitioner 05/13/23
--- OUTSIDE RECORDS SUMMARY | 2025-03-31 08:02 | XMS_ITS | Encounter Summary ---
Author Organization [facility] Address [address] [place] [address] Care Team Providers Care Insert Cutter Name Role Phone Michael Smith MD Primary Care Provider [phone] Encounter Details Date Type Department Care Team (Latest Contact Info) Description 09/29/2005 Outpatient Historical [facility] Jonel Vásquez MD [address] [facility] [address] [place] [address] Other Screening Mammogram (Primary Dx) Social History Tobacco Use Types Packs/Day Years Used Date Smoking Tobacco: Never Assessed Comments Unknown Sex and Gender Information Value Date Recorded Sex Assigned at Not on file Legal Sex Female 4:52 AM LABORER PETROLEUM REFINERY Gender Identity Not on file Sexual Orientation Not on file documented as of this encounter Plan of Treatment Not on file documented as of this encounter Visit Diagnoses Diagnosis Other screening mammogram- Primary documented in this encounter Additional Health Concerns Infection Onset Date Last Indicated Resolved Time R/O COVID-19 05/17/2020 05/20/2020 05/20/2020 3:21 PM LABORER PETROLEUM REFINERY documented as of this encounter Care Teams Insert Cutter Relationship Specialty Start Date End Date Michael Smith MD [address] [facility] [address] [place] [address] PCP - General 04/28/01 10/23/20 documented as of this encounter
--- OUTSIDE RECORDS SUMMARY | 2025-03-31 08:02 | XMS_ITS | Encounter Summary ---
Author Organization [facility] Address [address] [place] [address] Care Team Providers Care Lithographer Apprentice Name Role Phone Michael Smith MD Primary Care Provider [phone] Encounter Details Date Type Department Care Team (Late st Contact Info) Description 03/17/2004 Outpatient Historical [facility] [address] [place] [address] Anahi Chaves MD [address] [address] [address] [place] [address] Social History Tobacco Use Types Packs/Day Years Used Date Smoking Tobacco: Never Assessed Comments Unknown Sex and Gender Information Value Date Recorded Sex Assigned at Not on file Legal Sex Female 4:52 AM AUTO TIRE RECAPPER Gender Identity Not on file Sexual Orientation Not on file documented as of this encounter Plan of Treatment Not on file documented as of this encounter Visit Diagnoses Not on filedocumented in this encounter Additional Health Concerns Infection Onset Date Last Indicated Resolved Time R/O COVID-19 05/17/2020 05/20/2020 05/20/2020 3:21 PM AUTO TIRE RECAPPER documented as of this encounter Care Teams Lithographer Apprentice Relationship Specialty Start Date End Date Michael Smith MD [address] [facility] [address] [place] [address] PCP - General 04/28/01 10/23/20 documented as of this encounter
--- OUTSIDE RECORDS SUMMARY | 2025-03-31 08:02 | XMS_ITS | Encounter Summary ---
Author Organization [facility] Address [address] [facility] Attn: Epic Prelude ADT [place] [address] Care Team Providers Care Search Engine Optimization Consultant Name Role Phone Michael Smith MD Primary Care Provider Encounter Details Date Type Department Care Team (Late st Contact Info) Description 06/18/1993 Outpatient Historical Michael Smith MD [address] [place] [address] Social History Tobacco Use Types Packs/Day Years Used Date Smoking Tobacco: Never Assessed Comments Unknown Sex and Gender Information Value Date Recorded Sex Assigned at Not on file Legal Sex Female 4:52 AM ROBOTICS TESTING TECHNICIAN Gender Identity Not on file Sexual Orientation Not on file documented as of this encounter Plan of Treatment Not on file documented as of this encounter Visit Diagnoses Not on filedocumented in this encounter Additional Health Concerns Infection Onset Date Last Indicated Resolved Time R/O COVID-19 05/17/2020 05/20/2020 05/20/2020 3:21 PM ROBOTICS TESTING TECHNICIAN documented as of this encounter Care Teams Search Engine Optimization Consultant Relationship Specialty Start Date End Date Michael Smith MD [address] [place] [address] PCP - General 04/28/01 10/23/20 documented as of this encounter
--- OUTSIDE RECORDS SUMMARY | 2025-03-31 08:02 | XMS_ITS | Encounter Summary ---
Author Organization [facility] Address [address] [place] [address] Care Team Providers Care Certified Personal Trainer Name Role Phone Michael Smith MD Primary Care Provider Encounter Details Date Type Department Care Team (Late st Contact Info) Description 04/28/2001 Outpatient Historical [facility] Lebron Farr MD [address] [place] [address] BENIGN NEOPLASM LG BOWEL (Primary Dx) Social History Tobacco Use Types Packs/Day Years Used Date Smoking Tobacco: Never Assessed Comments Unknown Sex and Gender Information Value Date Recorded Sex Assigned at Not on file Legal Sex Female 4:52 AM MICROCOMPUTER TECHNICIAN Gender Identity Not on file Sexual Orientation Not on file documented as of this encounter Plan of Treatment Not on file documented as of this encounter Visit Diagnoses Diagnosis Benign neoplasm of colon- Primary documented in this encounter Additional Health Concerns Infection Onset Date Last Indicated Resolved Time R/O COVID-19 05/17/2020 05/20/2020 05/20/2020 3:21 PM MICROCOMPUTER TECHNICIAN documented as of this encounter Care Teams Certified Personal Trainer Relationship Specialty Start Date End Date Michael Smith MD [address] [place] [address] PCP - General 04/28/01 10/23/20 documented as of this encounter
--- OUTSIDE RECORDS SUMMARY | 2025-03-31 08:02 | XMS_ITS | Encounter Summary ---
Author Organization [facility] Address [address] [place] [address] Care Team Providers Care Invasive Physician Name Role Phone Michael Smith MD Primary Care Provider [phone] Encounter Details Date Type Department Care Team (Late st Contact Info) Description 04/30/2003 Outpatient Historical [facility] Internal Medicine [address] [place] [address] Michael Smith MD [address] [place] [address] Social History Tobacco Use Types Packs/Day Years Used Date Smoking Tobacco: Never Assessed Comments Unknown Sex and Gender Information Value Date Recorded Sex Assigned at Not on file Legal Sex Female 4:52 AM WARP CLAMPER Gender Identity Not on file Sexual Orientation Not on file documented as of this encounter Plan of Treatment Not on file documented as of this encounter Visit Diagnoses Not on filedocumented in this encounter Additional Health Concerns Infection Onset Date Last Indicated Resolved Time R/O COVID-19 05/17/2020 05/20/2020 05/20/2020 3:21 PM WARP CLAMPER documented as of this encounter Care Teams Invasive Physician Relationship Specialty Start Date End Date Michael Smith MD [address] [place] [address] PCP - General 04/28/01 10/23/20 documented as of this encounter
--- OUTSIDE RECORDS SUMMARY | 2025-03-31 08:02 | XMS_ITS | Encounter Summary ---
Author Organization [facility] Address [address] [place] [address] Care Team Providers Care Special Education Para Professional Name Role Phone Michael Smith MD Primary Care Provider [phone] Encounter Details Date Type Department Care Team (Late st Contact Info) Description 10/06/2007 Orders Only [facility] Internal Medicine [address] [place] [address] Michael Smith MD [address] [place] [address] Social History Tobacco Use Types Packs/Day Years Used Date Smoking Tobacco: Never Assessed Comments Unknown Sex and Gender Information Value Date Recorded Sex Assigned at Not on file Legal Sex Female 4:52 AM CAR TRIMMER Gender Identity Not on file Sexual Orientation Not on file documented as of this encounter Plan of Treatment Not on file documented as of this encounter Visit Diagnoses Not on filedocumented in this encounter Additional Health Concerns Infection Onset Date Last Indicated Resolved Time R/O COVID-19 05/17/2020 05/20/2020 05/20/2020 3:21 PM CAR TRIMMER documented as of this encounter Care Teams Special Education Para Professional Relationship Specialty Start Date End Date Michael Smith MD [address] [place] [address] PCP - General 04/28/01 10/23/20 documented as of this encounter
--- OUTSIDE RECORDS SUMMARY | 2025-03-31 08:02 | XMS_ITS | Encounter Summary ---
Author Organization [facility] Address [address] [place] [address] Care Team Providers Care Maintenance And Operations Supervisor Name Role Phone Mcihael Smith MD Primary Care Provider [phone] Encounter Details Date Type Department Care Team (Late st Contact Info) Description 01/26/2001 Outpatient Historical [facility] Michael Torres MD [address] [place] [address] Social History Tobacco Use Types Packs/Day Years Used Date Smoking Tobacco: Never Assessed Comments Unknown Sex and Gender Information Value Date Recorded Sex Assigned at Not on file Legal Sex Female 4:52 AM RAILROAD DISPATCHER Gender Identity Not on file Sexual Orientation Not on file documented as of this encounter Plan of Treatment Not on file documented as of this encounter Visit Diagnoses Not on filedocumented in this encounter Additional Health Concerns Infection Onset Date Last Indicated Resolved Time R/O COVID-19 05/17/2020 05/20/2020 05/20/2020 3:21 PM RAILROAD DISPATCHER documented as of this encounter Care Teams Maintenance And Operations Supervisor Relationship Specialty Start Date End Date Michael Smith MD [address] [place] [address] PCP - General 04/28/01 10/23/20 documented as of this encounter
--- OUTSIDE RECORDS SUMMARY | 2025-03-31 08:02 | XMS_ITS | Encounter Summary ---
Author Organization [facility] Address [address] [place] [address] Care Team Providers Care Blindstitch Lining Feller Name Role Phone Michael Smith MD Primary Care Provider [phone] Encounter Details Date Type Department Care Team (Late st Contact Info) Description 02/19/2004 Outpatient Historical [facility] Internal Medicine [address] [place] [address] Michael Smith MD [address] [place] [address] Social History Tobacco Use Types Packs/Day Years Used Date Smoking Tobacco: Never Assessed Comments Unknown Sex and Gender Information Value Date Recorded Sex Assigned at Not on file Legal Sex Female 4:52 AM SMALL PACKAGE AND BUNDLE SORTER CLERK Gender Identity Not on file Sexual Orientation Not on file documented as of this encounter Plan of Treatment Not on file documented as of this encounter Visit Diagnoses Not on filedocumented in this encounter Additional Health Concerns Infection Onset Date Last Indicated Resolved Time R/O COVID-19 05/17/2020 05/20/2020 05/20/2020 3:21 PM SMALL PACKAGE AND BUNDLE SORTER CLERK documented as of this encounter Care Teams Blindstitch Lining Feller Relationship Specialty Start Date End Date Michael Smith MD [address] [place] [address] PCP - General 04/28/01 10/23/20 documented as of this encounter
--- OUTSIDE RECORDS SUMMARY | 2025-03-31 08:02 | XMS_ITS | Encounter Summary ---
Author Organization [facility] Address [address] [place] [address] Care Team Providers Care Hop Picker Name Role Phone Michael Smith MD Primary Care Provider [phone] Reason for Visit * Reason Comments Medication Refill Encounter Details Date Type Department Care Team (Late st Contact Info) Description 04/04/2018 Refill [facility] Primary Care - [place] [address] [facility] [address] [place] [address] Michael Smith MD [address] [facility] [address] [place] [address] Social History Tobacco Use Types Packs/Day Years Used Date Smoking Tobacco: Never Smokeless Tobacco: Never Alcohol Use Standard Drinks/Week Comments No 0 (1 standard drink = 0.6 oz pur e alcohol) Comments No Sex and Gender Information Value Date Recorded Sex Assigned at Not on file Legal Sex Female 4:52 AM GREENKEEPER Gender Identity Not on file Sexual Orientation Not on file Occupation Industry Job Start Date Job End Date Not on file Not on file Not on file Not on file documented as of this encounter Miscellaneous Notes * Telephone Encounter - Ayse Ward - 04/05/2018 7:06 AM CST Last ov-06/28/2017 Last refill- 05/31/2017 NKEEPER documented in this encounter Plan of Treatment Not on file documented as of this encounter Visit Diagnoses Not on filedocumented in this encounter Additional Health Concerns Infection Onset Date Last Indicated Resolved Time R/O COVID-19 05/17/2020 05/20/2020 05/20/2020 3:21 PM GREENKEEPER documented as of this encounter Care Teams Hop Picker Relationship Specialty Start Date End Date Michael Smith MD [address] [facility] [address] [place] [address] PCP - General 04/28/01 10/23/20 documented as of this encounter
--- OUTSIDE RECORDS SUMMARY | 2025-03-31 08:02 | XMS_ITS | Encounter Summary ---
Author Organization [facility] Address [address] [place] [address] Care Team Providers Care Loading Dock Hand Name Role Phone Michael Smith MD Primary Care Provider [phone] Encounter Details Date Type Department Care Team (Late st Contact Info) Description 06/14/2018 [facility] Outpatient Visit [facility] [address] [place] [address] [place] [address] [address] Social History Tobacco Use Types [...] on filedocumented in this encounter Care Teams Loading Dock Hand Relationship Specialty Start Date End Date Michael Smith MD PCP - General Internal Medicine 10/13/12 documented as of this encounter
--- OUTSIDE RECORDS SUMMARY | 2025-03-31 08:02 | XMS_ITS | Encounter Summary ---
Author Organization [facility] Address [address] [place] [address] Care Team Providers Care Green Hide Inspector Name Role Phone Michael Smith MD Primary Care Provider [phone] Encounter Details Date Type Department Care Team (Late st Contact Info) Description 10/22/2003 Outpatient Historical [facility] Internal Medicine [address] [place] [address] Michael Smith MD [address] [place] [address] Social History Tobacco Use Types Packs/Day Years Used Date Smoking Tobacco: Never Assessed Comments Unknown Sex and Gender Information Value Date Recorded Sex Assigned at Not on file Legal Sex Female 4:52 AM PUBLIC OPINION SURVEY TAKER Gender Identity Not on file Sexual Orientation Not on file documented as of this encounter Plan of Treatment Not on file documented as of this encounter Visit Diagnoses Not on filedocumented in this encounter Additional Health Concerns Infection Onset Date Last Indicated Resolved Time R/O COVID-19 05/17/2020 05/20/2020 05/20/2020 3:21 PM PUBLIC OPINION SURVEY TAKER documented as of this encounter Care Teams Green Hide Inspector Relationship Specialty Start Date End Date Michael Smith MD [address] [place] [address] PCP - General 04/28/01 10/23/20 documented as of this encounter
--- OUTSIDE RECORDS SUMMARY | 2025-03-31 08:02 | XMS_ITS | Encounter Summary ---
Author Organization [facility] Address [address] [place] [address] Care Team Providers Care Epic Willow Specialist Name Role Phone Michael Smith MD Primary Care Provider [phone] Encounter Details Date Type Department Care Team (Late st Contact Info) Description 04/06/2007 Orders Only [facility] Internal Medicine [address] [place] [address] Michael Smith MD [address] [facility] [address] [place] [address] Social History Tobacco Use Types Packs/Day Years Used Date Smoking Tobacco: Never Assessed Comments Unknown Sex and Gender Information Value Date Recorded Sex Assigned at Not on file Legal Sex Female 4:52 AM MECHANICAL EXPERT Gender Identity Not on file Sexual Orientation Not on file documented as of this encounter Progress Notes * Michael Smith MD - 09/22/2007 8:37 PM CDT TIME:10:00 am PATIENT`S HOME PHONE: PATIENT`S WORK PHONE: PATIENT`S INSURANCE: [employer] PPO WHO TOOK THE CALL: Giselle Gamino L GENERAL INFORMATION PATIENT STATUS: Established Patient. WHO CALLED: Pharmacy called. PHARMACY NUMBER: [phone] SECTION 1: REQUESTED ACTION nabila 04/06/07 at [...] at 04:00 pm. scheduled for f/u on 04/11/07/rll Called pharmacy at 04/06/07 at 03:58 pm. voice mail/rll Electronically Signed by: Giselle Gamino on Friday, April 06, 2007 documented in this encounter Plan of Treatment Not on file documented as of this encounter Visit Diagnoses Not on filedocumented in this encounter Additional Health Concerns Infection Onset Date Last Indicated Resolved Time R/O COVID-19 05/17/2020 05/20/2020 05/20/2020 3:21 PM MECHANICAL EXPERT documented as of this encounter Care Teams Epic Willow Specialist Relationship Specialty Start Date End Date Michael Smith MD [address] [facility] [address] [place] [address] PCP - General 04/28/01 10/23/20 documented as of this encounter
--- OUTSIDE RECORDS SUMMARY | 2025-03-31 08:02 | XMS_ITS | Encounter Summary ---
Author Organization [facility] Address [address] [place] [address] Care Team Providers Care Sole Layer Name Role Phone Michael Smith MD Primary Care Provider Encounter Details Date Type Department Care Team (Late st Contact Info) Description 09/27/[address] [facility] Internal Medicine [address] [place] [address] Michael Smith MD [address] [place] [address] Social History Tobacco Use Types Packs/Day Years Used Date Smoking Tobacco: Never Assessed Comments Unknown Sex and Gender Information Value Date Recorded Sex Assigned at Not on file Legal Sex Female 4:52 AM BUTTER MAKER Gender Identity Not on file Sexual Orientation Not on file documented as of this encounter Plan of Treatment Not on file documented as of this encounter Visit Diagnoses Not on filedocumented in this encounter Additional Health Concerns Infection Onset Date Last Indicated Resolved Time R/O COVID-19 05/17/2020 05/20/2020 05/20/2020 3:21 PM BUTTER MAKER documented as of this encounter Care Teams Sole Layer Relationship Specialty Start Date End Date Michael Smith MD [address] [place] [address] PCP - General 04/28/01 10/23/20 documented as of this encounter
--- OUTSIDE RECORDS SUMMARY | 2025-03-31 08:02 | XMS_ITS | Encounter Summary ---
Author Organization [facility] Address [address] [place] [address] Care Team Providers Care Baking Assistant Name Role Phone Michael Smith MD Primary Care Provider [phone] Encounter Details Date Type Department Care Team (Late st Contact Info) Description 08/18/2007 Outpatient Historical [facility] Internal Medicine [address] [place] [address] Michael Smith MD [address] [place] [address] Social History Tobacco Use Types Packs/Day Years Used Date Smoking Tobacco: Never Assessed Comments Unknown Sex and Gender Information Value Date Recorded Sex Assigned at Not on file Legal Sex Female 4:52 AM BULK TANK DRIVER Gender Identity Not on file Sexual Orientation Not on file documented as of this encounter Plan of Treatment Not on file documented as of this encounter Visit Diagnoses Not on filedocumented in this encounter Additional Health Concerns Infection Onset Date Last Indicated Resolved Time R/O COVID-19 05/17/2020 05/20/2020 05/20/2020 3:21 PM BULK TANK DRIVER documented as of this encounter Care Teams Baking Assistant Relationship Specialty Start Date End Date Michael Smith MD [address] [place] [address] PCP - General 04/28/01 10/23/20 documented as of this encounter
--- OUTSIDE RECORDS SUMMARY | 2025-03-31 08:02 | XMS_ITS | Encounter Summary ---
Author Organization [facility] Address [address] [place] [address] Care Team Providers Care Procurement Officer Name Role Phone Michael Smith MD Primary Care Provider Encounter Details Date Type Department Care Team (Latest Contact Info) Description 10/22/2003 Outpatient Historical [facility] Jonel Vásquez MD [address] [place] [address] SCREENING MAMM-MAILG NEOPL-OTHER (Primary Dx) Social History Tobacco Use Types Packs/Day Years Used Date Smoking Tobacco: Never Assessed Comments Unknown Sex and Gender Information Value Date Recorded Sex Assigned at Not on file Legal Sex Female 4:52 AM WASHCOAT WIPER Gender Identity Not on file Sexual Orientation Not on file documented as of this encounter Plan of Treatment Not on file documented as of this encounter Visit Diagnoses Diagnosis Other screening mammogram- Primary documented in this encounter Additional Health Concerns Infection Onset Date Last Indicated Resolved Time R/O COVID-19 05/17/2020 05/20/2020 05/20/2020 3:21 PM WASHCOAT WIPER documented as of this encounter Care Teams Procurement Officer Relationship Specialty Start Date End Date Michael Smith MD [address] [facility] [address] [place] [address] PCP - General 04/28/01 10/23/20 documented as of this encounter
--- OUTSIDE RECORDS SUMMARY | 2025-03-31 08:02 | XMS_ITS | Encounter Summary ---
Author Organization [facility] Healthcare Address [address] [place] [address] Care Team Providers Care Stone Cutter Name Role Phone Roxanen Werner MD Unavailable Ata Bronson DPM Unavailable [phone] Meir Ibrahim MD Primary Care Provider [phone] Encounter Details Date Type Department Care Team (Late st Contact Info) Description 02/14/2025 Results Follow-Up [place] Business Analytics Manager [address] [address] Roxanne Werner MD [address] [place] [address] Protime-INR, Basic metabolic panel, eGFR Social History [...] on file Legal Sex Female 2:53 PM HOUSEHOLD REFRIGERATION MECHANIC Gender Identity Female 08/19/2020 7:43 PM CDT Sexual Orientation Straight 09/24/2020 8: 49 AM CDT 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
--- OUTSIDE RECORDS SUMMARY | 2025-03-31 08:02 | XMS_ITS | Encounter Summary ---
Author Organization [facility] Address [address] [place] [address] Care Team Providers Care Private Investigator Surveillance Name Role Phone Michael Smith MD Primary Care Provider Encounter Details Date Type Department Care Team (Late st Contact Info) Description 11/18/2004 Outpatient Historical [facility] Lebron Farr MD [address] [place] [address] BENIGN NEOPLASM LG BOWEL (Primary Dx) Social History Tobacco Use Types Packs/Day Years Used Date Smoking Tobacco: Never Assessed Comments Unknown Sex and Gender Information Value Date Recorded Sex Assigned at Not on file Legal Sex Female 4:52 AM BUCKLE SEWER MACHINE Gender Identity Not on file Sexual Orientation Not on file documented as of this encounter Plan of Treatment Not on file documented as of this encounter Visit Diagnoses Diagnosis Benign neoplasm of colon- Primary documented in this encounter Additional Health Concerns Infection Onset Date Last Indicated Resolved Time R/O COVID-19 05/17/2020 05/20/2020 05/20/2020 3:21 PM BUCKLE SEWER MACHINE documented as of this encounter Care Teams Private Investigator Surveillance Relationship Specialty Start Date End Date Michael Smith MD [address] [place] [address] PCP - General 04/28/01 10/23/20 documented as of this encounter
--- OUTSIDE RECORDS SUMMARY | 2025-03-31 08:02 | XMS_ITS | Encounter Summary ---
Author Organization [facility] Address [address] [place] [address] Care Team Providers Care Deputy County Attorney Name Role Phone Perry Smith MD Primary Care Provider [phone] Encounter Details Date Type Department Care Team (Latest Contact Info) Description 11/03/2007 Outpatient Historical HIS IMG[facility] Carie Ken MD [address] [facility] [address] [place] [address] Other Screening Mammogram Social History Tobacco Use Types Packs/Day Years Used Date Smoking Tobacco: Never Assessed Comments Unknown Sex and Gender Information Value Date Recorded Sex Assigned at Not on file Legal Sex Female 4:52 AM SHIP PURSER Gender Identity Not on file Sexual Orientation [...] AM CDT Narrative 11/08/2007 9:24 AM CDT [facility] [address] [place], [place] [address] Admit Date: 11/03/2007 JOHNATHAN MENDEZON Krish Sex: F Admit Prov: CARIE KEN Date: 1950 Primary Care Prov: PERRY SMITH CMRN: [id number] [facility] [address] [place] [address] IMAGING SERVICES Ordering Prov: CARIE KEN Accession Number: [id number] Interpretation BILATERAL FULL FIELD DIGITAL SCREENING MAMMOGRAM [...] 1-Negative Recommendation: Normal interval follow-up Dictated by: ALISHA RAO Electronically signed by: ALISHA RAO 11/08/2007 09:24 Transcribed: 11/08/2007 08:37 DKT Procedure Note Alisha Rao - 11/08/[address] [place], [place] [address] Admit Date: 11/03/2007 ARABELLA MENDEZ Sex: F Admit Prov: CARIE KEN Date: 1950 Primary Care Prov: PERRY SMITH CMRN: [id number] [facility] [address] [place] [address] IMAGING SERVICES Ordering Prov: CARIE KEN Interpretation [...] 1-Negative Recommendation: Normal interval follow-up Dictated by: ALISHA RAO Electronically signed by: ALISHA RAO 11/08/2007 09:24 Transcribed: 11/08/2007 08:37 DKT us Carie Ken MD MAMMO ORDERABLES Final Result documented in this encounter Visit Diagnoses Diagnosis Other screening mammogram documented in this encounter Additional Health Concerns Infection Onset Date Last Indicated Resolved Time R/O COVID-19 05/17/2020 05/20/2020 05/20/2020 3:21 PM SHIP PURSER documented as of this encounter Care Teams Deputy County Attorney Relationship Specialty Start Date End Date Perry Smith MD [address] [facility] [address] [place] [address] PCP - General 04/28/01 10/23/20 documented as of this encounter
--- OUTSIDE RECORDS SUMMARY | 2025-03-31 08:02 | XMS_ITS | Encounter Summary ---
Author Organization [facility] Address [address] [place] [address] Care Team Providers Care Spot Billing Clerk Name Role Phone Michael Smith MD Primary Care Provider Encounter Details Date Type Department Care Team (Late st Contact Info) Description 08/18/2007 Outpatient Historical [facility] Michael Smith MD [address] [place] [address] Edema Social History Tobacco Use Types Packs/Day Years Used Date Smoking Tobacco: Never Assessed Comments Unknown Sex and Gender Information Value Date Recorded Sex Assigned at Not on file Legal Sex Female 4:52 AM RN PHYSICIAN OFFICE Gender Identity Not on file Sexual Orientation Not on file documented as of this encounter Plan of Treatment Not on file documented as of this encounter Visit Diagnoses Diagnosis Edema documented in this encounter Additional Health Concerns Infection Onset Date Last Indicated Resolved Time R/O COVID-19 05/17/2020 05/20/2020 05/20/2020 3:21 PM RN PHYSICIAN OFFICE documented as of this encounter Care Teams Spot Billing Clerk Relationship Specialty Start Date End Date Michael Smith MD [address] [place] [address] PCP - General 04/28/01 10/23/20 documented as of this encounter
--- OUTSIDE RECORDS SUMMARY | 2025-03-31 08:02 | XMS_ITS | Encounter Summary ---
Author Organization [facility] Address [address] [place] [address] Care Team Providers Care Trains Dispatcher Supervisor Name Role Phone Michael Smith MD Primary Care Provider [phone] Encounter Details Date Type Department Care Team (Late st Contact Info) Description 03/08/2006 Outpatient Historical [facility] Internal Medicine [address] [place] [address] Michael Smith MD [address] [place] [address] Social History Tobacco Use Types Packs/Day Years Used Date Smoking Tobacco: Never Assessed Comments Unknown Sex and Gender Information Value Date Recorded Sex Assigned at Not on file Legal Sex Female 4:52 AM POST FRAMER Gender Identity Not on file Sexual Orientation Not on file documented as of this encounter Plan of Treatment Not on file documented as of this encounter Visit Diagnoses Not on filedocumented in this encounter Additional Health Concerns Infection Onset Date Last Indicated Resolved Time R/O COVID-19 05/17/2020 05/20/2020 05/20/2020 3:21 PM POST FRAMER documented as of this encounter Care Teams Trains Dispatcher Supervisor Relationship Specialty Start Date End Date Michael Smith MD [address] [place] [address] PCP - General 04/28/01 10/23/20 documented as of this encounter
--- OUTSIDE RECORDS SUMMARY | 2025-03-31 08:02 | XMS_ITS | Encounter Summary ---
Author Organization [facility] Address [address] [place] [address] Care Team Providers Care Seed Analyst Name Role Phone Michael Smith MD Primary Care Provider [phone] Encounter Details Date Type Department Care Team (Late st Contact Info) Description 02/10/2005 Outpatient Historical [facility] Internal Medicine [address] [place] [address] Michael Smith MD [address] [place] [address] Social History Tobacco Use Types Packs/Day Years Used Date Smoking Tobacco: Never Assessed Comments Unknown Sex and Gender Information Value Date Recorded Sex Assigned at Not on file Legal Sex Female 4:52 AM WIND OPERATIONS MANAGER Gender Identity Not on file Sexual Orientation Not on file documented as of this encounter Plan of Treatment Not on file documented as of this encounter Visit Diagnoses Not on filedocumented in this encounter Additional Health Concerns Infection Onset Date Last Indicated Resolved Time R/O COVID-19 05/17/2020 05/20/2020 05/20/2020 3:21 PM WIND OPERATIONS MANAGER documented as of this encounter Care Teams Seed Analyst Relationship Specialty Start Date End Date Michael Smith MD [address] [place] [address] PCP - General 04/28/01 10/23/20 documented as of this encounter
--- OUTSIDE RECORDS SUMMARY | 2025-03-31 08:02 | XMS_ITS | Encounter Summary ---
Author Organization [facility] Address [address] [place] [address] Care Team Providers Care Senior Director Marketing Name Role Phone Michael Smith MD Primary Care Provider [phone] Encounter Details Date Type Department Care Team (Late st Contact Info) Description 03/08/2006 Outpatient Historical [facility] Internal Medicine [address] [place] [address] Michael Smith MD [address] [place] [address] Social History Tobacco Use Types Packs/Day Years Used Date Smoking Tobacco: Never Assessed Comments Unknown Sex and Gender Information Value Date Recorded Sex Assigned at Not on file Legal Sex Female 4:52 AM SUPERVISOR POLICY CHANGE CLERKS Gender Identity Not on file Sexual Orientation Not on file documented as of this encounter Plan of Treatment Not on file documented as of this encounter Visit Diagnoses Not on filedocumented in this encounter Additional Health Concerns Infection Onset Date Last Indicated Resolved Time R/O COVID-19 05/17/2020 05/20/2020 05/20/2020 3:21 PM SUPERVISOR POLICY CHANGE CLERKS documented as of this encounter Care Teams Senior Director Marketing Relationship Specialty Start Date End Date Michael Smith MD [address] [place] [address] PCP - General 04/28/01 10/23/20 documented as of this encounter
--- OUTSIDE RECORDS SUMMARY | 2025-03-31 08:02 | XMS_ITS | Encounter Summary ---
Author Organization [facility] Address [address] [place] [address] Care Team Providers Care Mds Nurse Name Role Phone Michael Smith MD Primary Care Provider [phone] Encounter Details Date Type Department Care Team (Late st Contact Info) Description 02/22/2004 Outpatient Historical [facility] Internal Medicine [address] [place] [address] Michael Smith MD [address] [place] [address] Social History Tobacco Use Types Packs/Day Years Used Date Smoking Tobacco: Never Assessed Comments Unknown Sex and Gender Information Value Date Recorded Sex Assigned at Not on file Legal Sex Female 4:52 AM SECURITY SYSTEM INSTALLER Gender Identity Not on file Sexual Orientation Not on file documented as of this encounter Plan of Treatment Not on file documented as of this encounter Visit Diagnoses Not on filedocumented in this encounter Additional Health Concerns Infection Onset Date Last Indicated Resolved Time R/O COVID-19 05/17/2020 05/20/2020 05/20/2020 3:21 PM SECURITY SYSTEM INSTALLER documented as of this encounter Care Teams Mds Nurse Relationship Specialty Start Date End Date Michael Smith MD [address] [place] [address] PCP - General 04/28/01 10/23/20 documented as of this encounter
--- OUTSIDE RECORDS SUMMARY | 2025-03-31 08:02 | XMS_ITS | Clinical Summary ---
Author Organization [facility] Administrative Offices Address [address] [place] [address] Care Team Providers Care Mineral Surveying Technician Name Role Phone Unavailable Primary Care Provider [...] Need for prophylactic vaccin ation with combined yridxuwznj-ehpnnvj-qjpheqhyc (DTP) vaccine 03/08/2006 12/17/2007 Benign neoplasm of [...] on file Legal Sex Female 4:52 AM WELL SERVICE FLOORPERSON Gender Identity Not on file Sexual Orientation Not on file Occupation Industry Job Start Date Job End Date Not on file Not on file Not on file Not on file Last Filed Vital Signs Vital Sign Reading Time Taken Comments Blood Pressure 128/84 06/29/2019 8:24 AM WELL SERVICE FLOORPERSON Pulse 67 05/30/2019 1:31 PM WELL SERVICE FLOORPERSON Temperature 36.9 C (98.5 F) 05/30/2019 1:16 PM WELL SERVICE FLOORPERSON Respiratory Rate 18 05/30/2019 1:31 PM WELL SERVICE FLOORPERSON Oxygen Saturation 95% 05/30/2019 1:31 PM WELL SERVICE FLOORPERSON Inhaled Oxygen Concentration - - Weight 91.2 kg (201 lb) 06/29/2019 8:24 AM WELL SERVICE FLOORPERSON Height 170.2 cm (5' 7) 06/29/2019 8:24 AM WELL SERVICE FLOORPERSON Body Mass Index 31.48 06/29/2019 8:24 AM WELL SERVICE FLOORPERSON Plan of Treatment Health Maintenance Due Date [...] , 05/21/2014 Medical Devices Implanted Type Area Collection Card Clerk Device Identifier Shelf Expiration Date Model / Serial / Lot Log [id number] - Bladder Slings And Tapes - 1 - Sling Desara System Rigoberto-Ds01 Implanted:Qty: 1 on 12/31/2009 at [facility] Sling N/A: Vagina [employer] 07/08/2014 RIGOBERTO-DS01 / / [id number] Description:vaginal apex Log [id number] - Bladder Slings And Tapes - 1 - Sling Desara System Rigoberto-Ds01 Implanted:Qty: 1 on 12/31/2009 at [facility] Sling N/A: Urethra [employer] 11/07/2012 RIGOBERTO-DS01 / / [id number] Description:mid urethra Procedures Procedure Name Priority Date/Time Associated Diagnosis Comments COLONOSCOPY REPORT 05/30/2019 1: 16 PM WELL SERVICE FLOORPERSON XR DEXA BONE DENSITY AXIAL 1 OR MORE SITES Routine 06/11/2015 9:09 AM WELL SERVICE FLOORPERSON Age-related osteoporosis without current pathological fracture from Last 3 Months or Most Recently Relevant to Health Maintenance Results * COLONOSCOPY REPORT (05/30/2019 1:16 PM WELL SERVICE FLOORPERSON) Narrative Procedure Note John Prado MD - 05/30/2019 1:15 PM CST [facility] Endoscopy Patient Name: Arabella Hankins [...] electronically. Number of Addenda: [phone] [facility] [place] [address] John Prado MD GI PROCEDURE ORDERABLES Final Re sult * XR DEXA BONE DENSITY AXIAL 1 OR MORE SITES (06/11/2015 9:09 AM WELL SERVICE FLOORPERSON) Anatomical Region Laterality Modality Digital Radiogra phy 06/11/2015 8:58 AM WELL SERVICE FLOORPERSON Narrative 06/11/2015 11:50 AM WELL SERVICE FLOORPERSON XR DEXA BONE DENSITY AXIAL 1 OR MORE SITES Dictated from Location 1 ([facility]) HISTORY 65 year-old F with post menopausal symptoms. PROCEDURE: Planar images of the lumbar spine and hip(s) using a New Relic DEXA scanner for bone mineral density determination (BMD). Compared to the prior bone density performed 07/16/2008 FINDINGS: Lumbar Spine (L1-L4) 1.494 gm/cm2, T-score: +2.6 Prior: 1.421 gm/cm2, +5.1% change Left femoral neck 1.109 gm/cm2, T-score: +0.5 Prior: 1.164 gm/cm2, -4.7% change Right femoral neck 1.116 gm/cm2, T-score: +0.6 Prior: 1.196 gm/cm2, -6.7% change Comments: None. Detailed report placed in Imaging Section of [facility] EMR. IMPRESSION Normal BMD. Lumbar Spine T-score: [...] OR MORE SITES Dictated from Location 1 ([facility]) HISTORY 65 year-old F with post menopausal symptoms. PROCEDURE: Planar images of the lumbar spine and hip(s) using a New Relic DEXA scanner for bone mineral density determination (BMD). Compared to the prior bone density performed 07/16/2008 FINDINGS: Lumbar Spine (L1-L4) 1.494 gm/cm2, T-score: +2.6 Prior: 1.421 gm/cm2, +5.1% change Left femoral neck 1.109 gm/cm2, T-score: +0.5 Prior: 1.164 gm/cm2, -4.7% change Right femoral neck 1.116 gm/cm2, T-score: +0.6 Prior: 1.196 gm/cm2, -6.7% change Comments: None. Detailed report placed in Imaging Section of [facility] EMR. IMPRESSION Normal BMD. Lumbar Spine T-score: [...] Maintenance Insurance MEDICARE PART A AND B [facility] MEDICARE SUPPLEMENT Advance Directives For more information, please contact: [phone] Documents on File Type Date Recorded Patient [employer] System Crewmember Expl anation Advance Directive POA 12/31/2009 5:41 [...]
--- OUTSIDE RECORDS SUMMARY | 2025-03-31 08:02 | XMS_ITS | Encounter Summary ---
Author Organization [facility] Address [address] [place] [address] Care Team Providers Care Laundry Machine Mechanic Name Role Phone Michael Smith MD Primary Care Provider [phone] Encounter Details Date Type Department Care Team (Late st Contact Info) Description 12/03/2005 Outpatient Historical [facility] Internal Medicine [address] [place] [address] Michael Smith MD [address] [facility] [address] [place] [address] Social History Tobacco Use Types Packs/Day Years Used Date Smoking Tobacco: Never Assessed Comments Unknown Sex and Gender Information Value Date Recorded Sex Assigned at Not on file Legal Sex Female 4:52 AM BRASS BUFFER Gender Identity Not on file Sexual Orientation [...] R/O COVID-19 05/17/2020 05/20/2020 05/20/2020 3:21 PM BRASS BUFFER documented as of this encounter Care Teams Laundry Machine Mechanic Relationship Specialty Start Date End Date Michael Smith MD [address] [facility] [address] [place] [address] PCP - General 04/28/01 10/23/20 documented as of this encounter
--- OUTSIDE RECORDS SUMMARY | 2025-03-31 08:02 | XMS_ITS | Encounter Summary ---
Author Organization [facility] Address [address] [place] [address] Care Team Providers Care Supervisor Sound Technician Name Role Phone Michael Smith MD Primary Care Provider [phone] Encounter Details Date Type Department Care Team (Late st Contact Info) Description 10/22/2003 Outpatient Historical [facility] Internal Medicine [address] [place] [address] Michael Smith MD [address] [place] [address] Social History Tobacco Use Types Packs/Day Years Used Date Smoking Tobacco: Never Assessed Comments Unknown Sex and Gender Information Value Date Recorded Sex Assigned at Not on file Legal Sex Female 4:52 AM BUSINESS PLANNING DIRECTOR Gender Identity Not on file Sexual Orientation Not on file documented as of this encounter Plan of Treatment Not on file documented as of this encounter Visit Diagnoses Not on filedocumented in this encounter Additional Health Concerns Infection Onset Date Last Indicated Resolved Time R/O COVID-19 05/17/2020 05/20/2020 05/20/2020 3:21 PM BUSINESS PLANNING DIRECTOR documented as of this encounter Care Teams Supervisor Sound Technician Relationship Specialty Start Date End Date Michael Smith MD [address] [place] [address] PCP - General 04/28/01 10/23/20 documented as of this encounter
--- OUTSIDE RECORDS SUMMARY | 2025-03-31 08:02 | XMS_ITS | Encounter Summary ---
Author Organization [facility] Address [address] [place] [address] Care Team Providers Care Invasive Cardiologist Name Role Phone Michael Smith MD Primary Care Provider Encounter Details Date Type Department Care Team (Late st Contact Info) Description 11/29/2006 Orders Only [facility] Internal Medicine [address] [place] [address] Michael Smith MD [address] [place] [address] Social History Tobacco Use Types Packs/Day Years Used Date Smoking Tobacco: Never Assessed Comments Unknown Sex and Gender Information Value Date Recorded Sex Assigned at Not on file Legal Sex Female 4:52 AM DRAW FIRE OPERATOR Gender Identity Not on file Sexual Orientation Not on file documented as of this encounter Plan of Treatment Not on file documented as of this encounter Visit Diagnoses Not on filedocumented in this encounter Additional Health Concerns Infection Onset Date Last Indicated Resolved Time R/O COVID-19 05/17/2020 05/20/2020 05/20/2020 3:21 PM DRAW FIRE OPERATOR documented as of this encounter Care Teams Invasive Cardiologist Relationship Specialty Start Date End Date Michael Smith MD [address] [place] [address] PCP - General 04/28/01 10/23/20 documented as of this encounter
--- OUTSIDE RECORDS SUMMARY | 2025-03-31 08:02 | XMS_ITS | Encounter Summary ---
Author Organization [facility] Address [address] [place] [address] Care Team Providers Care Teacher Specialist Name Role Phone Michael Smith MD Primary Care Provider [phone] Encounter Details Date Type Department Care Team (Latest Contact Info) Description 09/17/2003 Outpatient Historical [facility] Michael Smith MD [address] [place] [address] OTHER OVARIAN FAILURE (Primary Dx) Social History Tobacco Use Types Packs/Day Years Used Date Smoking Tobacco: Never Assessed Comments Unknown Sex and Gender Information Value Date Recorded Sex Assigned at Not on file Legal Sex Female 4:52 AM CIRCUS PERFORMER Gender Identity Not on file Sexual Orientation Not on file documented as of this encounter Plan of Treatment Not on file documented as of this encounter Visit Diagnoses Diagnosis Other ovarian failure(256.39)- Primary Other ovarian failure documented in this encounter Additional Health Concerns Infection Onset Date Last Indicated Resolved Time R/O COVID-19 05/17/2020 05/20/2020 05/20/2020 3:21 PM CIRCUS PERFORMER documented as of this encounter Care Teams Teacher Specialist Relationship Specialty Start Date End Date Michael Smith MD [address] [place] [address] PCP - General 04/28/01 10/23/20 documented as of this encounter
--- OUTSIDE RECORDS SUMMARY | 2025-03-31 08:02 | XMS_ITS | Encounter Summary ---
Author Organization [facility] Address [address] [place] [address] Care Team Providers Care Television Analyzer Name Role Phone Michael Smith MD Primary Care Provider [phone] Encounter Details Date Type Department Care Team (Late st Contact Info) Description 10/06/2007 Outpatient Historical [facility] Internal Medicine [address] [place] [address] Michael Smith MD [address] [facility] [address] [place] [address] Social History Tobacco Use Types Packs/Day Years Used Date Smoking Tobacco: Never Assessed Comments Unknown Sex and Gender Information Value Date Recorded Sex Assigned at Not on file Legal Sex Female 4:52 AM GENERAL HOUSE WORKER Gender Identity Not on file Sexual [...] R/O COVID-19 05/17/2020 05/20/2020 05/20/2020 3:21 PM GENERAL HOUSE WORKER documented as of this encounter Care Teams Television Analyzer Relationship Specialty Start Date End Date Michael Smith MD [address] [facility] [address] [place] [address] PCP - General 04/28/01 10/23/20 documented as of this encounter
--- OUTSIDE RECORDS SUMMARY | 2025-03-31 08:02 | XMS_ITS | Encounter Summary ---
Author Organization [facility] Address [address] [place] [address] Care Team Providers Care Extrusion Engineer Name Role Phone Michael Smith MD Primary Care Provider [phone] Encounter Details Date Type Department Care Team (Late st Contact Info) Description 01/30/2005 Outpatient Historical [facility] Internal Medicine [address] [place] [address] Michael Smith MD [address] [place] [address] Social History Tobacco Use Types Packs/Day Years Used Date Smoking Tobacco: Never Assessed Comments Unknown Sex and Gender Information Value Date Recorded Sex Assigned at Not on file Legal Sex Female 4:52 AM GEOLOGICAL TECHNICAL OFFICER Gender Identity Not on file Sexual Orientation Not on file documented as of this encounter Plan of Treatment Not on file documented as of this encounter Visit Diagnoses Not on filedocumented in this encounter Additional Health Concerns Infection Onset Date Last Indicated Resolved Time R/O COVID-19 05/17/2020 05/20/2020 05/20/2020 3:21 PM GEOLOGICAL TECHNICAL OFFICER documented as of this encounter Care Teams Extrusion Engineer Relationship Specialty Start Date End Date Michael Smith MD [address] [place] [address] PCP - General 04/28/01 10/23/20 documented as of this encounter
--- OUTSIDE RECORDS SUMMARY | 2025-03-31 08:02 | XMS_ITS | Encounter Summary ---
Author Organization [facility] Address [address] [place] [address] Care Team Providers Care Ordnance Truck Installation Supervisor Name Role Phone Michael Smith MD Primary Care Provider [phone] Encounter Details Date Type Department Care Team (Late st Contact Info) Description 03/07/2004 Outpatient Historical [facility] Internal Medicine [address] [place] [address] Michael Smith MD [address] [place] [address] Social History Tobacco Use Types Packs/Day Years Used Date Smoking Tobacco: Never Assessed Comments Unknown Sex and Gender Information Value Date Recorded Sex Assigned at Not on file Legal Sex Female 4:52 AM CHARACTER ARTIST Gender Identity Not on file Sexual Orientation Not on file documented as of this encounter Plan of Treatment Not on file documented as of this encounter Visit Diagnoses Not on filedocumented in this encounter Additional Health Concerns Infection Onset Date Last Indicated Resolved Time R/O COVID-19 05/17/2020 05/20/2020 05/20/2020 3:21 PM CHARACTER ARTIST documented as of this encounter Care Teams Ordnance Truck Installation Supervisor Relationship Specialty Start Date End Date Michael Smith MD [address] [place] [address] PCP - General 04/28/01 10/23/20 documented as of this encounter
--- OUTSIDE RECORDS SUMMARY | 2025-03-31 08:02 | XMS_ITS | Encounter Summary ---
Author Organization [facility] Address [address] [place] [address] Care Team Providers Care Sprinkler Fitter Helper Name Role Phone Michael Smith MD Primary Care Provider [phone] Encounter Details Date Type Department Care Team (Late st Contact Info) Description 06/13/2007 Orders Only [facility] Internal Medicine [address] [place] [address] Michael Smith MD [address] [facility] [address] [place] [address] Social History Tobacco Use Types Packs/Day Years Used Date Smoking Tobacco: Never Assessed Comments Unknown Sex and Gender Information Value Date Recorded Sex Assigned at Not on file Legal Sex Female 4:52 AM RISK ASSESSMENT CONSULTANT Gender Identity Not on file Sexual Orientation Not on file documented as of this encounter Progress Notes * Michael Smith MD - 09/21/2007 10:50 AM CDT TIME:11:49 am PATIENT`S HOME PHONE: PATIENT`S WORK PHONE: PATIENT`S INSURANCE: [employer] PPO WHO TOOK THE CALL: Giselle Gamino L GENERAL INFORMATION PATIENT STATUS: Established Patient. WHO CALLED: Pharmacy called. PHARMACY NUMBER: [phone] SECTION 1: REQUESTED ACTION nabila 06/13/07 at [...] R/O COVID-19 05/17/2020 05/20/2020 05/20/2020 3:21 PM RISK ASSESSMENT CONSULTANT documented as of this encounter Care Teams Sprinkler Fitter Helper Relationship Specialty Start Date End Date Michael Smith MD [address] [facility] [address] [place] [address] PCP - General 04/28/01 10/23/20 documented as of this encounter
--- OUTSIDE RECORDS SUMMARY | 2025-03-31 08:02 | XMS_ITS | Encounter Summary ---
Author Organization [facility] Address [address] [place] [address] Care Team Providers Care Wire Winding Machine Tender Name Role Phone Michael Smith MD Primary Care Provider [phone] Encounter Details Date Type Department Care Team (Late st Contact Info) Description 11/13/2005 Orders Only [facility] Internal Medicine [address] [place] [address] Michael Smith MD [address] [place] [address] Social History Tobacco Use Types Packs/Day Years Used Date Smoking Tobacco: Never Assessed Comments Unknown Sex and Gender Information Value Date Recorded Sex Assigned at Not on file Legal Sex Female 4:52 AM LEAD RAMP AGENT Gender Identity Not on file Sexual Orientation Not on file documented as of this encounter Plan of Treatment Not on file documented as of this encounter Visit Diagnoses Not on filedocumented in this encounter Additional Health Concerns Infection Onset Date Last Indicated Resolved Time R/O COVID-19 05/17/2020 05/20/2020 05/20/2020 3:21 PM LEAD RAMP AGENT documented as of this encounter Care Teams Wire Winding Machine Tender Relationship Specialty Start Date End Date Michael Smith MD [address] [place] [address] PCP - General 04/28/01 10/23/20 documented as of this encounter
--- OUTSIDE RECORDS SUMMARY | 2025-03-31 08:02 | XMS_ITS | Encounter Summary ---
Author Organization [facility] Address [address] [place] [address] Care Team Providers Care Cotton Header Name Role Phone Michael Smith MD Primary Care Provider [phone] Encounter Details Date Type Department Care Team (Late st Contact Info) Description 03/08/2006 Orders Only [facility] Internal Medicine [address] [place] [address] Michael Smith MD [address] [facility] [address] [place] [address] Social History Tobacco Use Types Packs/Day Years Used Date Smoking Tobacco: Never Assessed Comments Unknown Sex and Gender Information Value Date Recorded Sex Assigned at Not on file Legal Sex Female 4:52 AM HEALTH SCIENCE WRITER Gender Identity Not on file Sexual Orientation [...] may have bruised it. CURRENT MEDICATION LIST: [id number] ORAL TABLET 50-325-40 MG, Take one tablet [...] golfing, walking. PHYSICAL EXAMINATION: CONSTITUTIONAL: GENERAL APPEARANCE: -[place] Citizen female, in no acute distress. EYES: PUPILS: [...] No edema. BREAST/CHEST: EXAM DONE BY PATIENT'S SENIOR ASSET MANAGER. LYMPHATICS: No lymphadenopathy in the neck, axillae, or groin. GASTROINTESTINAL: ABDOMEN: Soft, non-tender, without masses. Bowel sounds active. LIVER/SPLEEN/KIDNEY: No hepatosplenomegaly, tenderness or nodularity. Kidneys not palpable. GENITOURINARY: EXTERNAL/VAGINAL: GENITAL EXAMINATION NOT DONE, PATIENT'S EXAM PERFORMED BY HER SENIOR ASSET MANAGER. MUSCULOSKELETAL EXAM: GAIT/STATION: Normal gait. EXTREMITIES: LEFT [...] or tightening. Wears wig NEUROLOGIC: CRANIAL NERVES: business administration teacher II-XII grossly intact. SENSATION: Normal vibration sensation [...] 1000mcg per month. LAB ORDERS: Order number: [id number] Test Ordered: CBC (INCLUDES DIFF/PLT) 6399 Order number: [id number] Test Ordered: VITAMIN B12 927 401.1-HYPERTENSION ESSENTIAL BENIGN ASSESSMENT: The blood pressure remains satisfactory. Will not change medication, continue to monitor for complications. Will check laboratory to assess disease effect, to assess medication effect. LAB ORDERS: Order number: [id number] Test Ordered: COMPREHENSIVE METABOLIC PANEL 88042 Order number: [id number] Test Ordered: LIPID PANEL 7600 Order number: [id number] Test Ordered: URINALYSIS, COMPLETE 5463 244.9-HYPOTHYROIDISM ASSESSMENT: The patient appears stable. Will follow for signs of hypothyroidism. Will not change medication, continue to monitor for complications. Will check laboratory for possible medication adjustment. LAB ORDERS: Order number: [id number] Test Ordered: TSH 899 396.9-DISEASES OF MITRAL AND AORTIC VALVES ASSESSMENT: Stable clinically. ECHO done last year. She has no symptoms and has good valve action. She is to take antibiotic prophylaxis. I think an echo next year will be adequate. LAB ORDERS: Order number: [id number] Test Ordered: EKG WITH INTERPRETATION AND REPORT 55020 719.44-OTHER AND UNSPECIFIED DISORDERS OF JOINT ASSESSMENT: Suspect contusion of the thumb. This should heal with no difficulty. If failing to improve with rest over two weeks she will call. V06.1-NEED FOR VACCINE [id number] LAB ORDERS: Order number: [id number] Test Ordered: INJ-TDAP 11 YRS OR OLDER 82547 211.3-COLON POLYP(S) ASSESSMENT: She is aware of [...] R/O COVID-19 05/17/2020 05/20/2020 05/20/2020 3:21 PM HEALTH SCIENCE WRITER documented as of this encounter Care Teams Cotton Header Relationship Specialty Start Date End Date Michael Smith MD [address] [address] PCP - General 04/28/01 10/23/20 documented as of this encounter
--- OUTSIDE RECORDS SUMMARY | 2025-03-31 08:02 | XMS_ITS | Encounter Summary ---
Author Organization [facility] Address [address] [place] [address] Care Team Providers Care Sales Driver Name Role Phone Michael Smith MD Primary Care Provider [phone] Encounter Details Date Type Department Care Team (Late st Contact Info) Description 12/20/2007 Outpatient Historical [facility] Lebron Farr MD [address] [facility] [address] [place] [address] Social History Tobacco Use Types Packs/Day Years Used Date Smoking Tobacco: Never Comments No Sex and Gender Information Value Date Recorded Sex Assigned at Not on file Legal Sex Female 4:52 AM CHIMNEY CONSTRUCTION SUPERVISOR Gender Identity Not on file Sexual Orientation Not on file documented as of this encounter Plan of Treatment Not on file documented as of this encounter Visit Diagnoses Not on filedocumented in this encounter Additional Health Concerns Infection Onset Date Last Indicated Resolved Time R/O COVID-19 05/17/2020 05/20/2020 05/20/2020 3:21 PM CHIMNEY CONSTRUCTION SUPERVISOR documented as of this encounter Care Teams Sales Driver Relationship Specialty Start Date End Date Michael Smith MD [address] [facility] [address] [place] [address] PCP - General 04/28/01 10/23/20 documented as of this encounter
--- OUTSIDE RECORDS SUMMARY | 2025-03-31 08:02 | XMS_ITS | Encounter Summary ---
Author Organization [facility] Address [address] [place] [address] Care Team Providers Care Sales Technician Home Theater Name Role Phone Michael Smith MD Primary Care Provider [phone] Encounter Details Date Type Department Care Team (Late st Contact Info) Description 04/11/2007 Orders Only [facility] Internal Medicine [address] [place] [address] Michael Smith MD [address] [facility] [address] [place] [address] Social History Tobacco Use Types Packs/Day Years Used Date Smoking Tobacco: Never Assessed Comments Unknown Sex and Gender Information Value Date Recorded Sex Assigned at Not on file Legal Sex Female 4:52 AM RECEIVING COORDINATOR Gender Identity Not on file Sexual [...] with her activity level. CURRENT MEDICATION LIST: [id number] ORAL TABLET 50-325-40 MG, Take one tablet [...] and adenoids. PHYSICAL EXAMINATION: CONSTITUTIONAL: GENERAL APPEARANCE: -[place] female, normal body habitus. NECK/THYROID: TOTAL THYROIDECTOMY. [...] SPECIALTY REFERRAL: PODIATRY Dr. Ata Reeder: ph: [phone] fax: [phone] [place]: ph: [phone] fax: [phone] [place]: ph: [phone] fax: [phone].Sent to [facility]. [facility]. Electronically Signed by: Michael Smith MD on Friday, May 11, 2007 documented in this encounter Plan of Treatment Not on file documented as of this encounter Visit Diagnoses Not on filedocumented in this encounter Additional Health Concerns Infection Onset Date Last Indicated Resolved Time R/O COVID-19 05/17/2020 05/20/2020 05/20/2020 3:21 PM RECEIVING COORDINATOR documented as of this encounter Care Teams Sales Technician Home Theater Relationship Specialty Start Date End Date Michael Smith MD [address] [facility] [address] [place] [id number] PCP - General 04/28/01 10/23/20 documented as of this encounter
--- OUTSIDE RECORDS SUMMARY | 2025-03-31 08:02 | XMS_ITS | Encounter Summary ---
Author Organization [facility] Address [address] [place] [address] Care Team Providers Care Olive Picker Name Role Phone Michael Smith MD Primary Care Provider [phone] Encounter Details Date Type Department Care Team (Late st Contact Info) Description 08/17/2006 Outpatient Historical [facility] Internal Medicine [address] [place] [address] Michael Smith MD [address] [facility] [address] [place] [address] Social History Tobacco Use Types Packs/Day Years Used Date Smoking Tobacco: Never Assessed Comments Unknown Sex and Gender Information Value Date Recorded Sex Assigned at Not on file Legal Sex Female 4:52 AM OPERATIONS SCHEDULER Gender Identity Not on file Sexual [...] R/O COVID-19 05/17/2020 05/20/2020 05/20/2020 3:21 PM OPERATIONS SCHEDULER documented as of this encounter Care Teams Olive Picker Relationship Specialty Start Date End Date Michael Smith MD [address] [place] [address] PCP - General 04/28/01 10/23/20 documented as of this encounter
--- OUTSIDE RECORDS SUMMARY | 2025-03-31 08:02 | XMS_ITS | Encounter Summary ---
Author Organization [facility] Address [address] [place] [address] Care Team Providers Care Therapy Site Coordinator Name Role Phone Michael Smith MD Primary Care Provider [phone] Encounter Details Date Type Department Care Team (Late st Contact Info) Description 08/25/2002 Outpatient Historical [facility] Internal Medicine [address] [place] [address] Michael Smith MD [address] [place] [address] Social History Tobacco Use Types Packs/Day Years Used Date Smoking Tobacco: Never Assessed Comments Unknown Sex and Gender Information Value Date Recorded Sex Assigned at Not on file Legal Sex Female 4:52 AM AUTISM MOTOR SPECIALIST Gender Identity Not on file Sexual Orientation Not on file documented as of this encounter Plan of Treatment Not on file documented as of this encounter Visit Diagnoses Not on filedocumented in this encounter Additional Health Concerns Infection Onset Date Last Indicated Resolved Time R/O COVID-19 05/17/2020 05/20/2020 05/20/2020 3:21 PM AUTISM MOTOR SPECIALIST documented as of this encounter Care Teams Therapy Site Coordinator Relationship Specialty Start Date End Date Michael Smith MD [address] [place] [address] PCP - General 04/28/01 10/23/20 documented as of this encounter
--- OUTSIDE RECORDS SUMMARY | 2025-03-31 08:02 | XMS_ITS | Encounter Summary ---
Author Organization [facility] Address [address] [place] [address] Care Team Providers Care Superintendent Board Mill Name Role Phone Michael Smith MD Primary Care Provider [phone] Encounter Details Date Type Department Care Team (Latest Contact Info) Description 09/21/2001 Outpatient Historical [facility] Jonel Mulligan MD [address] [place] [address] FOLLOW-UP EXAM NEC (Primary Dx) Social History Tobacco Use Types Packs/Day Years Used Date Smoking Tobacco: Never Assessed Comments Unknown Sex and Gender Information Value Date Recorded Sex Assigned at Not on file Legal Sex Female 4:52 AM MANAGER OF NETWORK Gender Identity Not on file Sexual Orientation Not on file documented as of this encounter Plan of Treatment Not on file documented as of this encounter Visit Diagnoses Diagnosis Other follow-up examination(V67.59)- Primary Other follow-up examination documented in this encounter Additional Health Concerns Infection Onset Date Last Indicated Resolved Time R/O COVID-19 05/17/2020 05/20/2020 05/20/2020 3:21 PM MANAGER OF NETWORK documented as of this encounter Care Teams Superintendent Board Mill Relationship Specialty Start Date End Date Michael Smith MD [address] [place] [address] PCP - General 04/28/01 10/23/20 documented as of this encounter
--- OUTSIDE RECORDS SUMMARY | 2025-03-31 08:02 | XMS_ITS | Encounter Summary ---
Author Organization [facility] Address [address] [place] [address] Care Team Providers Care Clinical Research Physician Name Role Phone Michael Smith MD Primary Care Provider [phone] Encounter Details Date Type Department Care Team (Late st Contact Info) Description 03/08/2006 Outpatient Historical [facility] Internal Medicine [address] [place] [address] Michael Smith MD [address] [place] [address] Social History Tobacco Use Types Packs/Day Years Used Date Smoking Tobacco: Never Assessed Comments Unknown Sex and Gender Information Value Date Recorded Sex Assigned at Not on file Legal Sex Female 4:52 AM TANK TRUCK ENGINE MECHANIC Gender Identity Not on file Sexual Orientation Not on file documented as of this encounter Plan of Treatment Not on file documented as of this encounter Visit Diagnoses Not on filedocumented in this encounter Additional Health Concerns Infection Onset Date Last Indicated Resolved Time R/O COVID-19 05/17/2020 05/20/2020 05/20/2020 3:21 PM TANK TRUCK ENGINE MECHANIC documented as of this encounter Care Teams Clinical Research Physician Relationship Specialty Start Date End Date Michael Smith MD [address] [place] [address] PCP - General 04/28/01 10/23/20 documented as of this encounter
--- OUTSIDE RECORDS SUMMARY | 2025-03-31 08:02 | XMS_ITS | Encounter Summary ---
Author Organization [facility] Address [address] [place] [address] Care Team Providers Care Hadoop Java Developer Name Role Phone Michael Smith MD Primary Care Provider [phone] Reason for Visit * Reason Comments Medication Refill Encounter Details Date Type Department Care Team (Late st Contact Info) Description 04/26/2018 Refill [facility] [place] [address] [facility] [address] [place] [address] Michael Smith MD [address] [facility] [address] [place] [address] Social History Tobacco Use Types Packs/Day Years Used Date Smoking Tobacco: Never Smokeless Tobacco: Never Alcohol Use Standard Drinks/Week Comments No 0 (1 standard drink = 0.6 oz pur e alcohol) Comments No Sex and Gender Information Value Date Recorded Sex Assigned at Not on file Legal Sex Female 4:52 AM SENSITOMETRIST Gender Identity Not on file Sexual Orientation Not on file Occupation Industry Job Start Date Job End Date Not on file Not on file Not on file Not on file documented as of this encounter Miscellaneous Notes * Telephone Encounter - Ayse Ward - 04/26/2018 1:50 PM CST Last ov- 06/28/2017 Last refill- 04/13/2017 ITOMETRIST documented in this encounter Plan of Treatment Not on file documented as of this encounter Visit Diagnoses Not on filedocumented in this encounter Additional Health Concerns Infection Onset Date Last Indicated Resolved Time R/O COVID-19 05/17/2020 05/20/2020 05/20/2020 3:21 PM SENSITOMETRIST documented as of this encounter Care Teams Hadoop Java Developer Relationship Specialty Start Date End Date Michael Smith MD [address] [facility] [address] [place] [address] PCP - General 04/28/01 10/23/20 documented as of this encounter
--- OUTSIDE RECORDS SUMMARY | 2025-03-31 08:02 | XMS_ITS | Encounter Summary ---
Author Organization [facility] Address [address] [place] [address] Care Team Providers Care Grants Manager Name Role Phone Michael Smith MD Primary Care Provider [phone] Encounter Details Date Type Department Care Team (Late st Contact Info) Description 11/28/2004 Outpatient Historical [facility] Internal Medicine [address] [place] [address] Michael Smith MD [address] [place] [address] Social History Tobacco Use Types Packs/Day Years Used Date Smoking Tobacco: Never Assessed Comments Unknown Sex and Gender Information Value Date Recorded Sex Assigned at Not on file Legal Sex Female 4:52 AM SPECIALIST PHYSICIAN Gender Identity Not on file Sexual Orientation Not on file documented as of this encounter Plan of Treatment Not on file documented as of this encounter Visit Diagnoses Not on filedocumented in this encounter Additional Health Concerns Infection Onset Date Last Indicated Resolved Time R/O COVID-19 05/17/2020 05/20/2020 05/20/2020 3:21 PM SPECIALIST PHYSICIAN documented as of this encounter Care Teams Grants Manager Relationship Specialty Start Date End Date Michael Smith MD [address] [place] [address] PCP - General 04/28/01 10/23/20 documented as of this encounter
--- OUTSIDE RECORDS SUMMARY | 2025-03-31 08:02 | XMS_ITS | Encounter Summary ---
Author Organization [facility] Address [address] [facility] Attn: Epic Prelude ADT [place] [address] Care Team Providers Care Tower Erector Helper Name Role Phone Michael Smith MD Primary Care Provider Encounter Details Date Type Department Care Team (Late st Contact Info) Description 08/07/1992 Outpatient Historical Michael Smith MD [address] [place] [address] Social History Tobacco Use Types Packs/Day Years Used Date Smoking Tobacco: Never Assessed Comments Unknown Sex and Gender Information Value Date Recorded Sex Assigned at Not on file Legal Sex Female 4:52 AM PLASTER MACHINE TENDER Gender Identity Not on file Sexual Orientation Not on file documented as of this encounter Plan of Treatment Not on file documented as of this encounter Visit Diagnoses Not on filedocumented in this encounter Additional Health Concerns Infection Onset Date Last Indicated Resolved Time R/O COVID-19 05/17/2020 05/20/2020 05/20/2020 3:21 PM PLASTER MACHINE TENDER documented as of this encounter Care Teams Tower Erector Helper Relationship Specialty Start Date End Date Michael Smith MD [address] [place] [address] PCP - General 04/28/01 10/23/20 documented as of this encounter
--- OUTSIDE RECORDS SUMMARY | 2025-03-31 08:02 | XMS_ITS | Encounter Summary ---
Author Organization [facility] Address [address] [place] [address] Care Team Providers Care Radar Air Traffic Controller Name Role Phone Perry Smith MD Primary Care Provider [phone] Encounter Details Date Type Department Care Team (Latest Contact Info) Description 07/16/2008 Outpatient Historical [facility] Carie Ken MD [address] [place] [address] Other Specified Menopausal and Postmenopausal Disorder Social History Tobacco Use Types Packs/Day Years Used Date Smoking Tobacco: Never Comments No Sex and Gender Information Value Date Recorded Sex Assigned at Not on file Legal Sex Female 4:52 AM LAUNCH OPERATOR Gender Identity Not on file Sexual [...] PM CDT Narrative 07/16/2008 4:46 PM CDT [facility] [address] [place], [place] [address] Admit Date: 07/16/2008 ARABELLA MENDEZ Sex: F Admit Prov: CARIE KEN Date: 1950 Primary Care Prov: PERRY SMITH CMRN: [id number] Room: [facility] SSN: [address] [place] [address] IMAGING SERVICES Ordering Prov: N/A Accession Number: [id number] Interpretation BONE MINERAL DENSITY (DEXA) HISTORY: 58 year old female with postmenopausal symptoms needing evaluation for osteoporosis. PROCEDURE: Using a [employer] dual energy x-ray absorptiometry system, the patient's [...] 16:44 Procedure Note Paty Dill - 07/16/2008 [facility] [address], [place] [address] Admit Date: 07/16/2008 ARABELLA MENDEZ Sex: F Admit Prov: CARIE KEN Date: 1950 Primary Care Prov: PERRY SMITH CMRN: [id number] Room: [facility] SSN: [id number] IMAGING SERVICES Ordering Prov: N/A Interpretation BONE MINERAL DENSITY (DEXA) HISTORY: 58 year old female with postmenopausal symptoms needing evaluationfor osteoporosis. PROCEDURE: Using a [employer] dual energy x-ray absorptiometry system, the patient's [...] Electronically signed by: PATY DILL 07/16/2008 16:44 aCrie Ken MD DIAGNOSTIC IMAGING ORDERABLES Fi nal Result documented in this encounter Visit Diagnoses Diagnosis Other specified menopausal and postmenopausal disorder documented in this encounter Additional Health Concerns Infection Onset Date Last Indicated Resolved Time R/O COVID-19 05/17/2020 05/20/2020 05/20/2020 3:21 PM LAUNCH OPERATOR documented as of this encounter Care Teams Radar Air Traffic Controller Relationship Specialty Start Date End Date Perry Smith MD [address] [facility] [address] [place] [address] PCP - General 04/28/01 10/23/20 documented as of this encounter
--- OUTSIDE RECORDS SUMMARY | 2025-03-31 08:02 | XMS_ITS | Encounter Summary ---
Author Organization [facility] Address [address] [place] [address] Care Team Providers Care Washer Engineer Name Role Phone Michael Smith MD Primary Care Provider [phone] Encounter Details Date Type Department Care Team (Late st Contact Info) Description 03/12/2006 Orders Only [facility] Internal Medicine [address] [place] [address] Michael Smith MD [address] [facility] [address] [place] [address] Social History Tobacco Use Types Packs/Day Years Used Date Smoking Tobacco: Never Assessed Comments Unknown Sex and Gender Information Value Date Recorded Sex Assigned at Not on file Legal Sex Female 4:52 AM QUANTITATIVE CONSULTANT Gender Identity Not on file Sexual Orientation Not on file documented as of this encounter Progress Notes * Michael Smith MD - 02/21/2008 10:41 PM CDT NURSE NAME: Sugey Ortega * Michael Smith MD - 02/21/2008 10:41 PM CDT TIME:11:30 am PATIENT`S HOME PHONE: PATIENT`S WORK PHONE: PATIENT`S INSURANCE: [employer] PPO WHO TOOK THE CALL: Sugey Ortega [...] Supply, status: DISCONTINUED, 03/12/2006, Comment: faxed to [facility] @ [phone] on 11/12/05/rll. LEVOXYL ORAL TABLET 112 MCG, Take one tab po every day, 30 Dispensed, 5 Fills, status: NEW PRESCRIPTION, 03/12/2006. 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 LAB ORDERS: Order number: [id number] Test Ordered: TSH 899 SECTION 3: RN/REFRIGERATOR CABINETMAKER RESPONSE: 03/12/06 at 11:37 am Call to patient regarding lab results:which show cholesterol 225,ckj456,hdl 68 ok.Glucose is normal,kidney and liver normal,no [...] R/O COVID-19 05/17/2020 05/20/2020 05/20/2020 3:21 PM QUANTITATIVE CONSULTANT documented as of this encounter Care Teams Washer Engineer Relationship Specialty Start Date End Date Michael Smith MD [address] [facility] [address] [place] [address] PCP - General 04/28/01 10/23/20 documented as of this encounter
--- OUTSIDE RECORDS SUMMARY | 2025-03-31 08:02 | XMS_ITS | Encounter Summary ---
Author Organization [facility] Address [address] [facility] Attn: Epic Prelude ADT [place] [address] Care Team Providers Care Dining Services Manager Name Role Phone Michael Smith MD Primary Care Provider Encounter Details Date Type Department Care Team (Late st Contact Info) Description 11/12/1992 Outpatient Historical Michael Smith MD [address] [place] [address] Social History Tobacco Use Types Packs/Day Years Used Date Smoking Tobacco: Never Assessed Comments Unknown Sex and Gender Information Value Date Recorded Sex Assigned at Not on file Legal Sex Female 4:52 AM OPTOMETRIC TECHNOLOGIST Gender Identity Not on file Sexual Orientation Not on file documented as of this encounter Plan of Treatment Not on file documented as of this encounter Visit Diagnoses Not on filedocumented in this encounter Additional Health Concerns Infection Onset Date Last Indicated Resolved Time R/O COVID-19 05/17/2020 05/20/2020 05/20/2020 3:21 PM OPTOMETRIC TECHNOLOGIST documented as of this encounter Care Teams Dining Services Manager Relationship Specialty Start Date End Date Michael Smith MD [address] [place] [address] PCP - General 04/28/01 10/23/20 documented as of this encounter
--- OUTSIDE RECORDS SUMMARY | 2025-03-31 08:02 | XMS_ITS | Encounter Summary ---
Author Organization [facility] Address [address] [place] [address] Care Team Providers Care Cigarette Making Machine Catcher Name Role Phone Perry Smith MD Primary Care Provider [phone] Encounter Details Date Type Department Care Team (Late st Contact Info) Description 09/12/2007 Outpatient Historical [facility] Perry Smith MD [address] [facility] [address] [place] [address] Headache Social History Tobacco Use Types Packs/Day Years Used Date Smoking Tobacco: Never Assessed Comments Unknown Sex and Gender Information Value Date Recorded Sex Assigned at Not on file Legal Sex Female 4:52 AM DONOR SUPPORT TECHNICIAN Gender Identity Not on file Sexual [...] 09/13/2007 8:26 AM CDT [facility] [address] [place], [place] [address] Admit Date: 09/12/2007 ARABELLA MENDEZ Sex: F Admit Prov: PERRY SMITH Date: 1950 Primary Care Prov: PERRY SMITH CMRN: [id number] [id number] IM[facility] SERVICES Ordering Prov: N/A Accession Number: [id number] Interpretation MRI ANGIO HEAD WITHOUT CONTRAST 09/12/2007 Indication: Five family members with brain aneurysms. Technique: [id number] MRA sequence was performed as well as [...] SJ Procedure Note Nathan Mcgee - 09/13/[address] [address] Admit Date: 09/12/2007 ARABELLA MENDEZ Sex: F Admit Prov: PERRY SMITH Date: 1950 Primary Care Prov: PERRY SMITH CMRN: [id number] Room: [facility] SSN: [id number] IMAGING SERVICES Ordering Prov: N/A Interpretation MRI ANGIO HEAD WITHOUT CONTRAST 09/12/2007 Indication: Five family members with brain aneurysms. Technique: [id number] MRA sequence was performed as well assagittal [...] R/O COVID-19 05/17/2020 05/20/2020 05/20/2020 3:21 PM DONOR SUPPORT TECHNICIAN documented as of this encounter Care Teams Cigarette Making Machine Catcher Relationship Specialty Start Date End Date Perry Smith MD [address] [facility] [address] [place] [address] PCP - General 04/28/01 10/23/20 documented as of this encounter
--- OUTSIDE RECORDS SUMMARY | 2025-03-31 08:02 | XMS_ITS | Encounter Summary ---
Author Organization [facility] Address [address] [place] [address] Care Team Providers Care Scrap Crane Operator Name Role Phone Michael Smith MD Primary Care Provider [phone] Encounter Details Date Type Department Care Team (Late st Contact Info) Description 10/05/2007 Outpatient Historical [facility] Internal Medicine [address] [place] [address] Michael Smith MD [address] [place] [address] Social History Tobacco Use Types Packs/Day Years Used Date Smoking Tobacco: Never Assessed Comments Unknown Sex and Gender Information Value Date Recorded Sex Assigned at Not on file Legal Sex Female 4:52 AM SMOKE ROOM OPERATOR Gender Identity Not on file Sexual Orientation Not on file documented as of this encounter Plan of Treatment Not on file documented as of this encounter Visit Diagnoses Not on filedocumented in this encounter Additional Health Concerns Infection Onset Date Last Indicated Resolved Time R/O COVID-19 05/17/2020 05/20/2020 05/20/2020 3:21 PM SMOKE ROOM OPERATOR documented as of this encounter Care Teams Scrap Crane Operator Relationship Specialty Start Date End Date Michael Smith MD [address] [place] [address] PCP - General 04/28/01 10/23/20 documented as of this encounter
--- OUTSIDE RECORDS SUMMARY | 2025-03-31 08:02 | XMS_ITS | Encounter Summary ---
Author Organization [facility] Address [address] [place] [address] Care Team Providers Care Medical Biller Coder Name Role Phone Michael Smith MD Primary Care Provider [phone] Encounter Details Date Type Department Care Team (Latest Contact Info) Description 09/26/2004 Outpatient Historical HIS [facility] Jonel Mulligan MD [address] [place] [address] SCREENING MAMM-MAILG NEOPL-OTHER (Primary Dx) Social History Tobacco Use Types Packs/Day Years Used Date Smoking Tobacco: Never Assessed Comments Unknown Sex and Gender Information Value Date Recorded Sex Assigned at Not on file Legal Sex Female 4:52 AM TUG MASTER Gender Identity Not on file Sexual Orientation Not on file documented as of this encounter Plan of Treatment Not on file documented as of this encounter Visit Diagnoses Diagnosis Other screening mammogram- Primary documented in this encounter Additional Health Concerns Infection Onset Date Last Indicated Resolved Time R/O COVID-19 05/17/2020 05/20/2020 05/20/2020 3:21 PM TUG MASTER documented as of this encounter Care Teams Medical Biller Coder Relationship Specialty Start Date End Date Michael Smith MD [address] [facility] [address] [place] [address] PCP - General 04/28/01 10/23/20 documented as of this encounter
--- OUTSIDE RECORDS SUMMARY | 2025-03-31 08:02 | XMS_ITS | Encounter Summary ---
Author Organization [facility] Address [address] [place] [address] Care Team Providers Care Wool Classer Name Role Phone Michael Smith MD Primary Care Provider Encounter Details Date Type Department Care Team (Late st Contact Info) Description 11/11/2004 Outpatient Historical [facility] Internal Medicine [address] [place] [address] Michael Smith MD [address] [place] [address] Social History Tobacco Use Types Packs/Day Years Used Date Smoking Tobacco: Never Assessed Comments Unknown Sex and Gender Information Value Date Recorded Sex Assigned at Not on file Legal Sex Female 4:52 AM VICE PRESIDENT OF FINANCE Gender Identity Not on file Sexual Orientation Not on file documented as of this encounter Plan of Treatment Not on file documented as of this encounter Visit Diagnoses Not on filedocumented in this encounter Additional Health Concerns Infection Onset Date Last Indicated Resolved Time R/O COVID-19 05/17/2020 05/20/2020 05/20/2020 3:21 PM VICE PRESIDENT OF FINANCE documented as of this encounter Care Teams Wool Classer Relationship Specialty Start Date End Date Michael Smith MD [address] [place] [address] PCP - General 04/28/01 10/23/20 documented as of this encounter
--- OUTSIDE RECORDS SUMMARY | 2025-03-31 08:02 | XMS_ITS | Encounter Summary ---
Author Organization [facility] Address [address] [place] [address] Care Team Providers Care Pump Mechanic Name Role Phone Michael Smith MD Primary Care Provider [phone] Encounter Details Date Type Department Care Team (Late st Contact Info) Description 06/06/2007 Orders Only [facility] Internal Medicine [address] [place] [address] Michael Smith MD [address] [facility] [address] [place] [address] Social History Tobacco Use Types Packs/Day Years Used Date Smoking Tobacco: Never Assessed Comments Unknown Sex and Gender Information Value Date Recorded Sex Assigned at Not on file Legal Sex Female 4:52 AM PRIMARY PRODUCTS INSPECTORS Gender Identity Not on file Sexual Orientation Not on file documented as of this encounter Progress Notes * Michael Smith MD - 09/21/2007 9:17 PM CDT TIME:09:59 am PATIENT`S HOME PHONE: PATIENT`S WORK PHONE: PATIENT`S INSURANCE: [employer] PPO WHO TOOK THE CALL: Sugey Ortega SECTION 1: REQUESTED ACTION va 06/06/07 at 09:59 am: MEDICATION REQUEST: * Michael Smith MD - 09/21/2007 9:17 PM CDT TIME:10:00 am PATIENT`S HOME PHONE: PATIENT`S WORK PHONE: PATIENT`S INSURANCE: [employer] [facility] WHO TOOK THE CALL: Sugey Ortega Pharmacy [...] HOME PHONE: PATIENT`S WORK PHONE: PAT[facility]`S INSURANCE: [facility] WHO TOOK THE CALL: [...] Fills, status: DISCONTINUED HISTORY, 06/06/2007. DOCTOR`S RESPONSE: [email or web address] 06/06/07 at 06:02 pm MEDICATIONS: SYRINGE MISCELLANEOUS 20G X 1 3 ML, Use two times per month, 30 Dispensed, status: NEW PRESCRIPTION, 06/06/2007. VITAMIN B-12 INJECTION SOLUTION 1000 MCG/ML MILLILITERS, One CC IM every other week, 30 Dispensed, 1 Fills, status: NEW PRESCRIPTION, 06/06/2007. called in spoke to [facility].//mp Electronically Signed by: Sugey Ortega on Thursday, June 07, 2007 documented in this encounter Plan of Treatment Not on file documented as of this encounter Visit Diagnoses Not on filedocumented in this encounter Additional Health Concerns Infection Onset Date Last Indicated Resolved Time R/O COVID-19 05/17/2020 05/20/2020 05/20/2020 3:21 PM PRIMARY PRODUCTS INSPECTORS documented as of this encounter Care Teams Pump Mechanic Relationship Specialty Start Date End Date Michael Smith MD [address] [facility] [address] [place] [address] PCP - General 04/28/01 10/23/20 documented as of this encounter
--- OUTSIDE RECORDS SUMMARY | 2025-03-31 08:02 | XMS_ITS | Encounter Summary ---
Author Organization [facility] Address [address] [place] [address] Care Team Providers Care Catalogue Clerk Name Role Phone Michael Smith MD Primary Care Provider [phone] Encounter Details Date Type Department Care Team (Late st Contact Info) Description 08/18/[address] [facility] Internal Medicine [address] [place] [address] Michael Smith MD [address] [place] [address] Social History Tobacco Use Types Packs/Day Years Used Date Smoking Tobacco: Never Assessed Comments Unknown Sex and Gender Information Value Date Recorded Sex Assigned at Not on file Legal Sex Female 4:52 AM ORDERING MACHINE OPERATOR Gender Identity Not on file Sexual Orientation Not on file documented as of this encounter Plan of Treatment Not on file documented as of this encounter Visit Diagnoses Not on filedocumented in this encounter Additional Health Concerns Infection Onset Date Last Indicated Resolved Time R/O COVID-19 05/17/2020 05/20/2020 05/20/2020 3:21 PM ORDERING MACHINE OPERATOR documented as of this encounter Care Teams Catalogue Clerk Relationship Specialty Start Date End Date Michael Smith MD [address] [place] [address] PCP - General 04/28/01 10/23/20 documented as of this encounter
--- OUTSIDE RECORDS SUMMARY | 2025-03-31 08:02 | XMS_ITS | Encounter Summary ---
Author Organization [facility] Address [address] [place] [address] Care Team Providers Care Recruitment Officer Name Role Phone Michael Smith MD Primary Care Provider [phone] Encounter Details Date Type Department Care Team (Late st Contact Info) Description 05/31/2007 Outpatient Historical [facility] Internal Medicine [address] [place] [address] Michael Smith MD [address] [place] [address] Social History Tobacco Use Types Packs/Day Years Used Date Smoking Tobacco: Never Assessed Comments Unknown Sex and Gender Information Value Date Recorded Sex Assigned at Not on file Legal Sex Female 4:52 AM EXPENDITURE REQUISITION CLERK Gender Identity Not on file Sexual Orientation Not on file documented as of this encounter Plan of Treatment Not on file documented as of this encounter Visit Diagnoses Not on filedocumented in this encounter Additional Health Concerns Infection Onset Date Last Indicated Resolved Time R/O COVID-19 05/17/2020 05/20/2020 05/20/2020 3:21 PM EXPENDITURE REQUISITION CLERK documented as of this encounter Care Teams Recruitment Officer Relationship Specialty Start Date End Date Michael Smith MD [address] [place] [address] PCP - General 04/28/01 10/23/20 documented as of this encounter
--- OUTSIDE RECORDS SUMMARY | 2025-03-31 08:02 | XMS_ITS | Encounter Summary ---
Author Organization [facility] Address [address] [place] [address] Care Team Providers Care Staffing And Scheduling Coordinator Name Role Phone Michael Smith MD Primary Care Provider [phone] Encounter Details Date Type Department Care Team (Late st Contact Info) Description 05/27/2006 Orders Only [facility] Internal Medicine [address] [place] [address] Michael Smith MD [address] [facility] [address] [place] [address] Social History Tobacco Use Types Packs/Day Years Used Date Smoking Tobacco: Never Assessed Comments Unknown Sex and Gender Information Value Date Recorded Sex Assigned at Not on file Legal Sex Female 4:52 AM DIRECTOR FOOD AND BEVERAGE Gender Identity Not on file Sexual Orientation Not on file documented as of this encounter Progress Notes * Michael Smith MD - 10/04/2007 12:27 PM CDT TIME:09:49 am PATIENT`S HOME PHONE: PATIENT`S WORK PHONE: PATIENT`S INSURANCE: [employer] PPO WHO TOOK THE CALL: Anila Guthrie K GENERAL INFORMATION LAST VISIT: 03/08/06 WHO CALLED: Patient called. [phone] PHARMACY NUMBER: [id number] SECTION 1: REQUESTED ACTION benignok 05/27/06 at 09:50 am: MEDICATION REQUEST: Pt has had cold [id number]--Yvyckha Cold & Flu--nasal sinus congestion/no sore throat/no fever/no ear pn/yellow phlegm coughed up--cough just won't go away....../delbert DOCTOR`S RESPONSE: [email or web address] 05/27/06 at 09:56 am MEDICATIONS: Call in to Pharmacy CEFUROXIME AXETIL ORAL TABLET 250 MG, 1 Two Times A Day, 20 Dispensed, status: NEW PRESCRIPTION, 05/27/2006. DOCTOR`S OTHER RESPONSE: She will need to come in if not better. FINAL ACTION: [email or web address] 05/27/06 at 10:26 am Spoke with patient 05/27/06 at 10:27 am. Called pharmacy at 05/27/06 at 10:26 am. .../[facility] Electronically Signed by: Anila Guthrie on May documented in this encounter Plan of Treatment Not on file documented as of this encounter Visit Diagnoses Not on filedocumented in this encounter Additional Health Concerns Infection Onset Date Last Indicated Resolved Time R/O COVID-19 05/17/2020 05/20/2020 05/20/2020 3:21 PM DIRECTOR FOOD AND BEVERAGE documented as of this encounter Care Teams Staffing And Scheduling Coordinator Relationship Specialty Start Date End Date Michael Smith MD [address] [facility] [address] [place] [address] PCP - General 04/28/01 10/23/20 documented as of this encounter
--- OUTSIDE RECORDS SUMMARY | 2025-03-31 08:02 | XMS_ITS | Encounter Summary ---
Author Organization [facility] Address [address] [place] [address] Care Team Providers Care Community Development Technician Name Role Phone Michael Smith MD Primary Care Provider [phone] Encounter Details Date Type Department Care Team (Late st Contact Info) Description 01/22/2005 Outpatient Historical Division of Neurology [address] [place] [address] Brandon De Leon MD [address] [facility] [address] [place] [address] Social History Tobacco Use Types Packs/Day Years Used Date Smoking Tobacco: Never Assessed Comments Unknown Sex and Gender Information Value Date Recorded Sex Assigned at Not on file Legal Sex Female 4:52 AM MANUFACTURING INDUSTRIAL ENGINEER Gender Identity Not on file Sexual Orientation Not on file documented as of this encounter Plan of Treatment Not on file documented as of this encounter Visit Diagnoses Not on filedocumented in this encounter Additional Health Concerns Infection Onset Date Last Indicated Resolved Time R/O COVID-19 05/17/2020 05/20/2020 05/20/2020 3:21 PM MANUFACTURING INDUSTRIAL ENGINEER documented as of this encounter Care Teams Community Development Technician Relationship Specialty Start Date End Date Michael Smith MD [address] [facility] [address] [place] [address] PCP - General 04/28/01 10/23/20 documented as of this encounter
--- OUTSIDE RECORDS SUMMARY | 2025-03-31 08:02 | XMS_ITS | Encounter Summary ---
Author Organization [facility] Address [address] [place] [address] Care Team Providers Care Knowledge Manager Name Role Phone Michael Smith MD Primary Care Provider Encounter Details Date Type Department Care Team (Latest Contact Info) Description 03/17/2004 Outpatient Historical [facility] Michael Smith MD [address] [place] [address] ABN INVOLUN MOVEMENT NEC (Primary Dx) Social History Tobacco Use Types Packs/Day Years Used Date Smoking Tobacco: Never Assessed Comments Unknown Sex and Gender Information Value Date Recorded Sex Assigned at Not on file Legal Sex Female 4:52 AM CLIENT DEVELOPMENT CONSULTANT Gender Identity Not on file Sexual Orientation Not on file documented as of this encounter Plan of Treatment Not on file documented as of this encounter Visit Diagnoses Diagnosis Abnormal involuntary movements(781.0)- Primary Abnormal involuntary movements documented in this encounter Additional Health Concerns Infection Onset Date Last Indicated Resolved Time R/O COVID-19 05/17/2020 05/20/2020 05/20/2020 3:21 PM CLIENT DEVELOPMENT CONSULTANT documented as of this encounter Care Teams Knowledge Manager Relationship Specialty Start Date End Date Michael Smith MD [address] [place] [address] PCP - General 04/28/01 10/23/20 documented as of this encounter
--- OUTSIDE RECORDS SUMMARY | 2025-03-31 08:02 | XMS_ITS | Encounter Summary ---
Author Organization [facility] Address [address] [place] [address] Care Team Providers Care Internal Carver Name Role Phone Michael Smith MD Primary Care Provider [phone] Encounter Details Date Type Department Care Team (Latest Contact Info) Description 05/13/2006 Outpatient Historical [facility] Jonel Mulligan MD [address] [facility] [address] [place] [address] Abnormal Mammogram, Unspecified (Primary Dx) Social History Tobacco Use Types Packs/Day Years Used Date Smoking Tobacco: Never Assessed Comments Unknown Sex and Gender Information Value Date Recorded Sex Assigned at Not on file Legal Sex Female 4:52 AM MS SQL SERVER DEVELOPER Gender Identity Not on file Sexual Orientation Not on file documented as of this encounter Plan of Treatment Not on file documented as of this encounter Visit Diagnoses Diagnosis Abnormal mammogram, unspecified- Primary documented in this encounter Additional Health Concerns Infection Onset Date Last Indicated Resolved Time R/O COVID-19 05/17/2020 05/20/2020 05/20/2020 3:21 PM MS SQL SERVER DEVELOPER documented as of this encounter Care Teams Internal Carver Relationship Specialty Start Date End Date Michael Smith MD [address] [facility] [address] [place] [address] PCP - General 04/28/01 10/23/20 documented as of this encounter
--- OUTSIDE RECORDS SUMMARY | 2025-03-31 08:02 | XMS_ITS | Encounter Summary ---
Author Organization [facility] Address [address] [place] [address] Care Team Providers Care Fixture Maker Name Role Phone Michael Smith MD Primary Care Provider [phone] Encounter Details Date Type Department Care Team (Late st Contact Info) Description 10/07/2004 Outpatient Historical [facility] Internal Medicine [address] [place] [address] Michael Smith MD [address] [place] [address] Social History Tobacco Use Types Packs/Day Years Used Date Smoking Tobacco: Never Assessed Comments Unknown Sex and Gender Information Value Date Recorded Sex Assigned at Not on file Legal Sex Female 4:52 AM CARETAKER RESORT Gender Identity Not on file Sexual Orientation Not on file documented as of this encounter Plan of Treatment Not on file documented as of this encounter Visit Diagnoses Not on filedocumented in this encounter Additional Health Concerns Infection Onset Date Last Indicated Resolved Time R/O COVID-19 05/17/2020 05/20/2020 05/20/2020 3:21 PM CARETAKER RESORT documented as of this encounter Care Teams Fixture Maker Relationship Specialty Start Date End Date Michael Smith MD [address] [place] [address] PCP - General 04/28/01 10/23/20 documented as of this encounter
--- OUTSIDE RECORDS SUMMARY | 2025-03-31 08:02 | XMS_ITS | Clinical Summary ---
Author Organization [facility] Address [address] [place] [address] Care Team Providers Care Freelance Art Director Name Role Phone Roxanne Werner MD Unavailable Ata Bronson DPM Unavailable [phone] Meir Ibrahim MD Primary Care Provider [phone] Allergies Active Allergy Reactions Criticality Noted Date [...] mouth daily 90 tablet 3 4 Active furosemide (LASIX) 20 mg tabletIndications: Diastolic dysfunction TAKE 1 TABLET BY MOUTH EVERY DAY 90 tablet 3 4 Active NIFEdipine XL 60 mg 24 hr tablet TAKE 1 TABLET BY MOUTH DAILY 90 tablet 3 4 Active metFORMIN (GLUCOPHAGE) 500 mg tablet Take 1 tablet (500 mg total) by mouth 2 (two) times a day 4 Active dapagliflozin propanediol (FARXIGA) 5 mg tablet Take 1 tablet (5 mg total) by mouth daily Active levothyroxine (SYNTHROID) 112 mcg tabletIndications: Postoperative hypothyroidism TAKE 1 TABLET BY MOUTH EARLY IN THE MORNING BEFORE BREAKFAST 90 tablet 5 Active metoprolol tartrate (LOPRESSOR) 50 mg immediate release tabletIndications: Essential hypertension, benign Take 1 tablet (50 mg total) by mouth 2 (two) times a day 180 tablet 3 5 10/19/19 26 Active losartan (COZAAR) 25 mg tablet Take 1 tablet (25 mg total) by mouth daily 90 tablet 3 5 01/18/20 26 Active rivaroxaban (XARELTO) 20 mg tablet Take 1 tablet (20 mg total) by mouth daily with breakfast 90 tablet 3 5 01/18/20 26 Active oxyBUTYnin (DITROPAN) 5 mg tablet TAKE 1 TABLET BY MOUTH TWICE DAILY 200 tablet 2 5 Active rosuvastatin (CRESTOR) 5 mg tablet TAKE 1 TABLET BY MOUTH DAILY AT NIGHT 100 tablet 2 5 Active Active Problems Problem Noted Date Diagnosed Date Hepatitis B core antibody positive 01/26/2024 Overview [...] 07/12/2023 Assessment & Plan (07/14/2023 2:07 PM [employer]): -chronic, stable -Discussed/ordered labs -continue on Compazine 10 mg every 6 hours as needed Vitamin B12 deficiency 07/12/2023 Assessment & Plan (01/17/2024 8:01 AM CDT): -chronic, stable -Discussed/ordered labs -continue on OTC vitamin B12 supplement daily Assessment & Plan (07/14/2023 2:08 PM [employer]): -chronic, unknown, no data to review at this time to make an evaluation -Discussed/ordered labs -continue on OTC vitamin B12 supplement daily Vitamin D deficiency 07/12/2023 Assessment & Plan (01/17/2024 8:00 AM CDT): -chronic, stable -Discussed/ordered labs -continue on vitamin D3 supplement 5000 units daily Assessment & Plan (07/14/2023 2:08 PM [employer]): -chronic, unknown, no data to review at this time to make an evaluation -Discussed/ordered labs -continue on vitamin D3 supplement 5000 units daily Chronic cough 01/27/2023 Assessment & Plan (01/19/2024 12:53 PM CDT): -chronic, stable -Discussed/ordered labs -patient reports she stopped taking Flonase -continue follow up with the ENT as needed Assessment & Plan (07/14/2023 2:04 PM [employer]): -chronic, stable -Discussed/ordered labs -continue on Flonase [...] 01/27/2023 Assessment & Plan (07/14/2023 2:05 PM [employer]): -chronic, stable -Discussed/ordered labs -continue on Flonase 2 sprays per nostril daily and meclizine 12.5 mg 3 times daily as needed -continue seeing ENT Assessment & Plan (03/19/2023 9:11 AM [employer]): Continue the Nasal saline and Flonase Call [...] daily Assessment & Plan (07/14/2023 2:03 PM [employer]): -chronic, stable -Discussed/ordered labs -continue seeing Cardiology -continue seeing Nephrology -continue on Eliquis 5 mg every 12 hours, furosemide 20 mg daily, metoprolol 50 mg twice daily, nifedipine XL 60 mg daily, potassium ER 20 mEq twice daily, Rosuvastatin 5 mg daily Assessment & Plan (05/04/2023 3:52 PM [employer]): Stable. Blood pressure is well controlled today. Last GFR was 44. Recheck BMP today. Will refer back to Nephrology Assessment & Plan (10/21/2022 8:56 AM CDT): Blood pressure well controlled. gfr 40. Will continue to monitor. Recheck bmp in 3 months. Diastolic dysfunction 10/21/2022 Overview (10/21/2022): Monitor for SOB, fatigue, weight gain, etc. Assessment & Plan (07/14/2023 2:02 PM [employer]): -chronic, stable -Discussed/ordered labs -continue seeing Cardiology -continue on Eliquis 5 mg every 12 hours, furosemide 20 mg daily, metoprolol 50 mg twice daily, nifedipine XL 60 mg daily, potassium ER 20 mEq twice daily, Rosuvastatin 5 mg daily Assessment & Plan (05/04/2023 3:53 PM [employer]): History of diastolic dysfunction. Patient follows with [...] daily Assessment & Plan (07/14/2023 2:03 PM [employer]): -chronic, stable -Discussed/ordered labs -continue seeing Cardiology [...] 06/18/2022 Assessment & Plan (07/14/2023 2:06 PM [employer]): -chronic, stable -Discussed/ordered labs -continue seeing Cardiology -continue on Eliquis 5 mg every 12 hours, furosemide 20 mg daily, metoprolol 50 mg twice daily, nifedipine XL 60 mg daily, potassium ER 20 mEq twice daily, Rosuvastatin 5 mg daily Assessment & Plan (06/18/2022 11:11 AM [employer]): HPI: Condition is not at/near goal swelling [...] 06/18/2022 Assessment & Plan (06/18/2022 11:14 AM [employer]): HPI: Condition is not at/near goal A&P: [...] 04/22/2022 Assessment & Plan (07/14/2023 2:05 PM [employer]): -chronic, stable -Discussed/ordered labs -continue on cyclobenzaprine 3 times daily as needed and OTC muscle rub Assessment & Plan (06/18/2022 11:12 AM [employer]): HPI: Condition is not at/near goal A&P: Discussed/ordered labs, encouraged healthy, low carbohydrate lifestyle and at least 150min/week of exercise. Pt has not been using Voltaren gel. Pt denies stretching or doing other home remedies to help her back We will do xray lumbar spine today Physical therapy Muscle rubs such as biofreeze/icy hot Massage may help Assessment & Plan (04/22/2022 8:21 AM [employer]): Does not wish to seek further treatment, [...] in your mouth on an boom like [place] Talking Hand Measurements: A fist or cupped hand [...] in your mouth on an boom like ithinksportpal Hand Measurements: A fist or cupped hand [...] cup. Assessment & Plan (07/14/2023 2:05 PM [employer]): -chronic, stable goal BMI <30 Healthy, high-protein, lower carbohydrate, lower fat lifestyle and exercise for 150min/week recommended Recommend tracking everything you put in your mouth on an boom like ithinksportpal Hand Measurements: A fist or cupped hand [...] cup. Assessment & Plan (06/18/2022 11:13 AM [employer]): HPI: Condition is stable goal BMI <30 A&P: Healthy, high-protein, lower carbohydrate, lower fat lifestyle and exercise for 150min/week recommended Recommend tracking everything you put in your mouth on an boom like [employer] Talking Lower carb substitutions: Aldi carries a zero [...] in much longer they will become mushy [place] and/or coconut flour instead of regular flour [...] pork rinds For yogurt, try Two Good guamanian yogurt Use Pinteryobani for recipe ideas. Type [...] cup. Assessment & Plan (04/22/2022 8:20 AM [employer]): BMI Follow-up includes: exercise counseling. Assessment & Plan (10/16/2021 11:09 AM CDT): HPI: Condition is improving, but not at goal goal BMI <30 A&P: Healthy, high-protein, lower carbohydrate, lower fat lifestyle and exercise for 150min/week recommended Recommend tracking everything you put in your mouth on an boom like [employer] Lower carb substitutions: Aldi carries a zero [...] in much longer they will become mushy [place] and/or coconut flour instead of regular flour [...] pork rinds For yogurt, try Two Good guamanian yogurt Use Gregorio for recipe ideas. Type [...] cup. Assessment & Plan (04/08/2021 9:43 AM [employer]): HPI: Condition is not at/near goal goal BMI <30 A&P: Healthy, high-protein, lower carbohydrate, lower fat lifestyle and exercise for 150min/week recommended Substitutions: Recommend tracking everything you put in your mouth on an boom like [employer] Talking or Moozeyi carries a zero net carb bread If [...] in much longer they will become mushy [place] and/or coconut flour instead of regular flour [...] pork rinds For yogurt, try Two Good guamanian yogurt Use Pinteryobani for recipe ideas. Type in low carb... Chronic diastolic (congestive) heart failure Assessment & Plan (01/19/2024 12:52 PM CDT): -chronic, stable -Discussed/ordered labs -continue seeing Cardiology -continue on Eliquis 5 mg every 12 hours, furosemide 20 mg daily, metoprolol 50 mg twice daily, nifedipine XL 60 mg daily, potassium ER 20 mEq twice daily, Rosuvastatin 5 mg daily Assessment & Plan (07/14/2023 2:03 PM [employer]): -chronic, stable -Discussed/ordered labs -continue seeing Cardiology [...] Werner Assessment & Plan (04/08/2021 8:55 AM [employer]): HPI: Condition is stable A&P: Discussed/ordered labs, [...] addition of loop diuretic. Current use of care home anticoagulation 021 Assessment & Plan (01/17/2024 8:01 AM CDT): -chronic, stable -Discussed/ordered labs -continue on Eliquis 5 mg every 12 hours -continue seeing Cardiology Assessment & Plan (07/14/2023 2:05 PM [employer]): -chronic, stable -Discussed/ordered labs -continue on Eliquis 5 mg every 12 hours -continue seeing Cardiology Assessment & Plan (10/16/2021 11:10 AM CDT): HPI: Condition is stable A&P: Discussed/ordered labs, encouraged healthy, low carbohydrate lifestyle and at least 150min/week of exercise, continue on eliquis 5mg every 12 hours Continue f/u with cardiology Dr. Werner every 6 mo Assessment & Plan (04/08/2021 9:24 AM [employer]): HPI: Condition is stable A&P: Discussed/ordered labs, encouraged healthy, low carbohydrate lifestyle and at least 150min/week of exercise, continue on Eliquis 5 mg twice daily continue follow-up with cardiology-Dr. Elizabeth Assessment & Plan (02/25/2021 11:14 AM CDT): Patient has had no major bleeding events, she will continue with long-term anticoagulation. Hypokalemia 06/06/2020 Assessment & Plan (07/14/2023 2:03 PM [employer]): -chronic, stable -Discussed/ordered labs -continue seeing Cardiology -continue on Eliquis 5 mg every 12 hours, furosemide 20 mg daily, metoprolol 50 mg twice daily, nifedipine XL 60 mg daily, potassium ER 20 mEq twice daily, Rosuvastatin 5 mg daily Assessment & Plan (05/04/2023 3:54 PM [employer]): Received critical results after patient left. BMP [...] exercise Assessment & Plan (07/14/2023 2:07 PM [employer]): -chronic, stable -Discussed/ordered labs -recommend healthy low carb diet and increase exercise Assessment & Plan (05/04/2023 3:52 PM [employer]): Will recheck hemoglobin A1c today. Recommended healthy diet, incorporating fruits, vegetables and adequate amounts of water along with mild-moderate daily exercise as tolerated; Assessment & Plan (08/06/2022 9:05 AM CDT): Had A1c drawn in June and labs A1c was 6.3%. Recommend low carb diet. Continue her exercise habits. Will continue to monitor Assessment & Plan (04/22/2022 8:01 AM [employer]): Stable. Recommended healthy diet, incorporating fruits, vegetables and adequate amounts of water along with mild-moderate daily exercise as tolerated; Assessment & Plan (10/16/2021 7:24 AM CDT): HPI: Condition is stable A&P: Discussed/ordered labs, encouraged healthy, low carbohydrate lifestyle and at least 150min/week of exercise Assessment & Plan (04/08/2021 7:19 AM [employer]): HPI: Condition is stable A&P: Discussed/ordered labs, encouraged healthy, low carbohydrate lifestyle and at least 150min/week of exercise History of adenomatous polyp of colon 04/07/2016 Overview (04/08/2021): Last colonoscopy 07/[address] Noguera (GI) Repeat in 5 yrs. Assessment & Plan (01/17/2024 8:01 AM CDT): Last colonoscopy completed 07/15/2020 Repeat in 5 years Assessment & Plan (07/14/2023 2:06 PM [employer]): Last colonoscopy completed 07/15/2020 Repeat in 5 years Assessment & Plan (10/16/2021 7:24 AM CDT): Last colonoscopy 07/[address] Noguera (GI), repeat in 5 yrs. Assessment & Plan (04/08/2021 7:20 AM [employer]): Last colonoscopy 07/[address] Noguera (GI) [...] normal. Assessment & Plan (07/14/2023 2:02 PM [employer]): -chronic, stable -Discussed/ordered labs -continue seeing Cardiology [...] Werner Assessment & Plan (04/08/2021 7:21 AM [employer]): HPI: Condition is stable A&P: Discussed/ordered labs, encouraged healthy, low carbohydrate lifestyle and at least 150min/week of exercise, continue on Furosemide 20 mg daily, Metoprolol tartrate 25 mg twice daily, nifedipine 60 mg Daily, potassium chloride 10 mEq twice daily, rosuvastatin 5 mg daily Urinary incontinence 07/22/2009 Assessment & Plan (07/14/2023 2:07 PM [employer]): -chronic, stable -Discussed/ordered labs -continue on oxybutynin 5 mg twice daily Assessment & Plan (10/16/2021 11:18 AM CDT): HPI: Condition is not controlled A&P: Discussed/ordered labs, encouraged healthy, low carbohydrate lifestyle and at least 150min/week of exercise, stop taking the oxybutynin 5mg twice daily Trial on myrbetriq 25mg daily Assessment & Plan (04/08/2021 9:27 AM [employer]): HPI: Condition is stable, she reports that [...] daily Assessment & Plan (07/14/2023 2:02 PM [employer]): -chronic, stable -Discussed/ordered labs -continue seeing Cardiology [...] management Assessment & Plan (04/22/2022 8:01 AM [employer]): Stable/ Improved. Blood pressure is adequately controlled [...] Werner Assessment & Plan (04/08/2021 7:21 AM [employer]): HPI: Condition is stable A&P: Discussed/ordered labs, [...] time. Assessment & Plan (07/16/2020 12:26 PM [employer]): Patient's home blood pressures ranging 165-185/91-98. Will keep patient on Metoprolol 50mg BID since patient has not began the medication with the change (did not see [facility] [employer] message). Denies feeling symptomatic. Patient to keep home BP readings and bring to next follow up in 2 weeks with her home BP machine. Pt to let us know if she feels any adverse reaction to increasing the Metoprolol dose. Assessment & Plan (07/05/2020 1:28 PM [employer]): BP journal until next follow up (1-2 [...] daily Assessment & Plan (07/14/2023 2:06 PM [employer]): -chronic, stable -Discussed/ordered labs -continue on levothyroxine [...] day Assessment & Plan (04/22/2022 8:00 AM [employer]): Lipid abnormalities are stable. Pharmacotherapy as ordered. [...] day. Assessment & Plan (04/08/2021 7:19 AM [employer]): HPI: Condition is stable A&P: Discussed/ordered labs, [...] day. Assessment & Plan (07/05/2020 1:29 PM [employer]): Most recent thyroid function showed normalcy Will continue levothyroxien at 112 mcg daily Resolved Problems Problem Noted Date Diagnosed Date Resolved Date Atrial fibrillation 05/17/2024 03/19/20 25 Tendonitis, Achilles, left 05/04/2023 0 07/12/2023 Assessment & Plan (05/04/2023 3:53 PM [employer]): Refer to podiatry for Achilles tendonitis Body mass index (BMI) 31.0-31.9, adult 02/09/2023 07/14/2023 Assessment & Plan (02/09/2023 9:26 AM CDT): BMI Follow-up includes: nutrition counseling. Stage 3a chronic kidney disease 02/09/2023 07/14/2023 Assessment & Plan (05/04/2023 3:55 PM [employer]): Referred back to Nephrology. However today her [...] tomatoes, oranges, milk, dark kathi and chocolate. Warren juice, citrus juices, and tomato juice are [...] if any problems Follow-up in 1 year. Paroxysmal atrial fibrillation 07/23/2020 03/19/2025 Assessment & Plan (01/17/2024 8:00 AM CDT): -chronic, stable -Discussed/ordered labs -continue seeing Cardiology -continue on Eliquis 5 mg every 12 hours, furosemide 20 mg daily, metoprolol 50 mg twice daily, nifedipine XL 60 mg daily, potassium ER 20 mEq twice daily, Rosuvastatin 5 mg daily Assessment & Plan (07/14/2023 2:03 PM [employer]): -chronic, stable -Discussed/ordered labs -continue seeing Cardiology -continue on Eliquis 5 mg every 12 hours, furosemide 20 mg daily, metoprolol 50 mg twice daily, nifedipine XL 60 mg daily, potassium ER 20 mEq twice daily, Rosuvastatin 5 mg daily Assessment & Plan (08/06/2022 8:58 AM CDT): Stable. Continue eliquis, metoprolol, Assessment & Plan (04/22/2022 8:01 AM [employer]): Stable. Managed by cardiology. Remains on eliquis [...] Werner Assessment & Plan (04/08/2021 8:57 AM [employer]): HPI: Condition is stable A&P: Discussed/ordered labs, [...] time she will continue with long-term anticoagulation. Encounter for screening colonoscopy 07/08/2020 04/08/2021 Overview (07/08/2020): Added automatically from request for surgery [id number] Neuropathy 07/05/2020 07/12/2023 Overview (07/05/2020): noted during [...] podiatry Assessment & Plan (04/08/2021 9:25 AM [employer]): HPI: Condition is A&P: Discussed/ordered labs, encouraged [...] Encounters Date Type Department Care Team Description 03/19/2025 Anticoagulation Visit [facility] [address] [place] [phone] Laura Machado, JAYRO Paroxysmal atrial fibrillation (HCC) (Primary Dx) 02/21/2025 1:10 PM CDT Lab [address] [address] PAF (paroxysmal atrial fibrillation) 02/21/2025 Results Follow-Up [facility] [address] [place] [phone] Laura Machado MA Protime-INR 02/20/2025 [facility] Post Discharge Follow up phone call [facility] Emergency Department [address] [place] [address] Dawn Bustamante RN 02/14/2025 Results Follow-Up [facility] [address] [place] [phone] Roxanne Werner MD Protime-INR, Basic metabolic panel, eGFR 02/12/2025 12:55 [place] [address] 02/12/2025 11:55 AM CDT Lab [address] [address] PAF (paroxysmal atrial fibrillation); Primary hypertension; Chronic left-sided low back pain without sciatica; Hyperlipidemia, unspecified hyperlipidemia type; Chronic diastolic (congestive) heart failure 02/12/2025 Anticoagulation Visit [facility] [address] [place] [phone] Laura Machado MA Paroxysmal atrial fibrillation (HCC) (Primary Dx) 02/12/2025 Results Follow-Up [facility] [address] [place] [phone] Laura Machado MA Protime-INR 02/09/2025 9:27 PM CDT - 02/10/2025 1:12 AM CDT Emergency [facility] Emergency Department [address] [place] [phone] Yulissa Mccain MD Coagulopathy (Primary Dx) Discharge Disposition: Discharge to home or self care 02/09/2025 3:10 PM CDT Lab [address] [address] PAF (paroxysmal atrial fibrillation) 01/26/2025 Telephone [facility] [address] [place] [phone] Emily Romero 01/22/2025 11:54 AM CDT - 01/22/2025 11:59 PM CDT Hospital Encounter [facility] Diagnostic Imaging [address] [place] [phone] Abdominal pain, unspecified abdominal location; Urinary tract infection without hematuria, site unspecified Discharge Disposition: Discharge to home or self care 01/22/2025 11:35 AM CDT Lab [address] [address] 01/18/2025 Anticoagulation Visit [facility] [address] [place] [phone] Laura Machado MA Paroxysmal atrial fibrillation (HCC) (Primary Dx) 01/17/2025 10:15 AM CDT Office Visit [facility] [address] [place] [phone] Roxanne Werner MD Longstanding persistent atrial fibrillation (HCC) (Primary Dx) 01/17/2025 Results Follow-Up [facility] [address] [place] [phone] Roxanne Werner MD Protime-INR 01/17/2025 Orders Only [facility] [address] [place] [phone] Roxanne Werner MD Primary hypertension (Primary Dx); Chronic left-sided low back pain without sciatica; Hyperlipidemia, unspecified hyperlipidemia type; Chronic diastolic (congestive) heart failure 01/12/2025 2:05 PM CDT Lab [address] [address] PAF (paroxysmal atrial fibrillation) 01/05/2025 Telephone [facility] [address] [place] [phone] Laura Machado MA Home INR Testing 01/05/[address] [facility] Primary Care at [address] [place] [phone] Karolyn Evans NP Screening mammogram for breast cancer (Primary Dx) 01/05/2025 Results Follow-Up [facility] Primary Care at [address] [place] [phone] Karolyn Evans NP Screening Mammogram Bilateral W Gustavo 01/04/2025 8:49 AM CDT - 01/04/2025 11:59 PM CDT Hospital Encounter [facility] Imaging and Radiology [address] [place] [phone] Breast cancer screening by mammogram Discharge Disposition: Discharge to home or self care 01/01/2025 9:35 AM CDT Lab [address] [address] PAF (paroxysmal atrial fibrillation) 01/01/2025 Results Follow-Up [facility] [address] [place] [address] [address] [place] [phone] Laura Machado MA Protime-INR from Last 3 [...] on file Legal Sex Female 2:53 PM [employer] Gender Identity Female 08/19/2020 7:43 PM CDT [...] 10:19 AM CDT PAF (paroxysmal atrial fibrillation) LIPID PANEL Routine 12/18/2024 2:51 PM CDT Aortic valve stenosis, etiology of cardiac valve disease unspecified HEMOGLOBIN A1C Routine 01/17/2024 11:43 AM CDT Prediabetes DEXA AXIAL SKELETON BONE DENSITY 1 OR MORE SITES Schedule Routine, Read Routine (OP Routine) 07/28/2023 10:21 AM CDT Screening for osteoporosis Asymptomatic menopausal state HM HEPATITIS C SCREENING Routine 01/29/2022 COLONOSCOPY 07/15/2020 11:52 AM [employer] from Last 3 Months or Most Recently [...] ORDERABLES F inal Result Performing Organization Address [facility] Co de Phone Number KEREN GAMEZ [phone] Department of [employer] [place], [place] [id number] * eGFR (02/12/2025 2:30 PM CDT) eGFR [...] ORDERABLES F inal Result Performing Organization Address [facility]/ZIP Co de Phone Number KEREN GAMEZ [address] [place] [address] * Basic metabolic panel (02/12/2025 2:30 PM CDT) Sodium 142 135 - 145 mmol/L Potassium, pl 3.9 3.3 - 4.9 mmol/L [facility] Comment:Hemolysis present. R esults may be affected. Chloride 102 97 - 110 mmol/L [facility] CO2 25 22 - 32 mmol/L [facility] Anion gap 15 2 - 15 mmol/L [facility] BUN 10 6 - 25 mg/dL [facility] Creatinine 0.94 0.60 - 1.10 mg/dL [facility] Glucose 180 70 - 199 mg/dL [facility] Comment: Interpretive Data Fasting glucose >/= [...] 2022. Calcium 9.7 8.5 - 10.3 mg/dL [facility] Blood 02/12/2025 2:30 PM CDT 02/12/2025 2:30 PM CDT Roxanne Werner MD LAB BLOOD ORDERABLES F inal Result [facility] [address] Department [place] [address] * (ABNORMAL) Protime-INR (02/12/2025 12:22 PM CDT) PT 23.7(H) 10.2 - 13.5 sec INR 2.13(H) 0.90 - 1.20 [facility] Comment: Interpretive data Oral anticoagulant therapeutic [...] ORDERABLES F inal Result Performing Organization Address [facility]/ZIP Co de Phone Number KEREN GAMEZ [phone] Department [place] [address] * eGFR (02/09/2025 8:18 PM [...] ORDERABLES Fi nal Result Performing Organization Address [facility]/ZIP Co de Phone Number KEREN GAMEZ [phone] Department of Laboratories [place], [place] [id number] * (ABNORMAL) Differential, auto (02/09/2025 8:18 PM CDT) Neutrophil abs 4.02 1.50 - 6.50 K/cumm Imm gran abs 0.02 0.00 - 0.10 K/cumm [facility] Lymphocyte abs 1.85 0.80 - 3.30 K/cumm [facility] Monocyte abs 0.94(H) 0.20 - 0.80 K/cumm [facility] Eosinophil abs 0.07 0.00 - 0.50 K/cumm [facility] Basophil abs 0.02 0.00 - 0.10 K/cumm [facility] Neutrophil pct 58.1 % [facility] Comment: Interpretive Data Percent cell count reference ranges are not reported, since discordance with absolute values may lead to misinterpretation of CBC data. Current Interpretive Data was last revised on 2017. Imm gran pct 0.3 % [facility] Comment: Interpretive Data Percent cell count reference ranges are not reported, since discordance with absolute values may lead to misinterpretation of CBC data. Current Interpretive Data was last revised on 2017. Lymphocyte pct 26.7 % [facility] Comment: Interpretive Data Percent cell count reference ranges are not reported, since discordance with absolute values may lead to misinterpretation of CBC data. Current Interpretive Data was last revised on 2017. Monocyte pct 13.6 % [facility] Comment: Interpretive Data Percent cell count reference ranges are not reported, since discordance with absolute values may lead to misinterpretation of CBC data. Current Interpretive Data was last revised on 2017. Eosinophil pct 1.0 % [facility] Comment: Interpretive Data Percent cell count reference ranges are not reported, since discordance with absolute values may lead to misinterpretation of CBC data. Current Interpretive Data was last revised on 2017. Basophil pct 0.3 % [facility] Comment: Interpretive Data Percent cell count reference ranges are not reported, since discordance with absolute values may lead to misinterpretation of CBC data. Current Interpretive Data was last revised on 2017. Blood 02/09/2025 8:18 PM CDT 02/09/2025 8:28 PM CDT Yulsisa Mccain MD LAB BLOOD ORDERABLES Fi nal Result KEREN GAMEZ [address] Department [place] [address] * CBC with auto differential (02/09/2025 8:18 PM CDT) [facility] WBC 6.92 3.80 - 9.90 K/cumm Hgb 13.5 11.9 - 15.5 g/dL [facility] Hct 41.8 35.6 - 45.5 % [facility] Plt 301 150 - 400 K/cumm [facility] MPV 10.8 9.1 - 12.3 fL [facility] RBC 4.94 3.90 - 5.20 M/cumm [facility] MCV 84.6 81.3 - 96.4 fL [facility] MCH 27.3 27.1 - 33.3 pg [facility] MCHC 32.3 32.3 - 35.7 g/dL [facility] RDW CV 14.9 11.1 - 14.9 % [facility] RDW SD 45.7 35.7 - 48.1 fL [facility] NRBC abs 0.00 0.00 - 0.01 K/cumm [facility] Blood Venous blood specimen / Unknown 02/09/2025 8:18 PM CDT 02/09/2025 8:28 PM CDT Yulissa Mccain MD LAB BLOOD ORDERABLES nal Result KEREN GAMEZ [address] Department of Laboratories [place], [place] [id number] * (ABNORMAL) Protime-INR (02/09/2025 8:18 PM CDT) Pathologist [facility] PT 69.5(H) 10.2 - 13.5 sec Comment:Critical result call ed to and read back by Jeannie Asif (RN _) on 02/09/2025 21:39:36 CDT _ to Bushra Quijano _. INR 6.38(C) 0.90 - 1.20 [facility] Comment: Critical result called to and read back by Jeannie Asif (RN _) on 02/09/2025 21:39:36 CDT _ to Bushra aSmm _. Interpretive data Oral anticoagulant therapeutic ranges: Venous thromboembolism prophylaxis or treatment: 2.0-3.0 CARDIOLOGY Standard range: 2.0-3.0 High-intensity range: 2.5-3.5 Refer to indication-specific guidelines for appropriate target ranges for prosthetic heart valve replacement. Current interpretive data was last revised on 2019. Blood 02/09/2025 8:18 PM CDT 02/09/2025 8:28 PM CDT us Yulissa Mccain MD LAB BLOOD ORDERABLES Fi nal Result [facility] [address] Department [place] [address] * Comprehensive metabolic panel (02/09/2025 8:18 PM CDT) Sodium 141 135 - 145 mmol/L Potassium, pl 3.3 3.3 - 4.9 mmol/L [facility] Chloride 104 97 - 110 mmol/L [facility] CO2 23 22 - 32 mmol/L [facility] Anion gap 14 2 - 15 mmol/L [facility] BUN 11 6 - 25 mg/dL [facility] Creatinine 0.97 0.60 - 1.10 mg/dL [facility] Glucose 145 70 - 199 mg/dL [facility] Comment: Interpretive Data Fasting glucose >/= 126 [...] LAB BLOOD ORDERABLES Fi nal Result KEREN [address] Department [place] [address] * ECG 12 lead (02/09/2025 8:08 PM CDT) 02/09/2025 8:08 PM CDT Narrative [facility] - 02/10/2025 8:35 AM CDT Vent Rate: 61 bpm RR Interval: 971 msec IN Interval: 0 msec QRS Duration: 93 msec QT Interval: 374 msec QTC Interval: 378 msec P-R-T [place]: 0 - -9 - 62 degrees IMPRESSION: ATRIAL FIBRILLATION MODERATE VOLTAGE CRITERIA FOR LVH, CONSIDER NORMAL VARIANT [MEETS CRITERIA IN ONE OF: R(aVL), S(V1), R(V5), R(V5/V6)+S(V1)] NONSPECIFIC T-WAVE ABNORMALITY ABNORMAL RHYTHM ECG NO CHANGE FROM PREVIOUS TRACING NOTED Electronically Signed By: Brenden Gannon MD Yulissa Mccain MD ECG ORDERABLES Final R esult [facility] * (ABNORMAL) Protime-INR (02/09/2025 3:50 PM CDT) PT 80.1(H) 10.2 - 13.5 sec Comment:Critical result call ed to and read back by Soha Lopez on 02/09/2025 17:31:34 CDT _ to _ Bushra Samm . INR 7.37(C) 0.90 - 1.20 KEREN [...] LAB BLOOD ORDERABLES F inal Result KEREN [address] Department [place] [address] * XR KUB (01/22/2025 12:17 PM CDT) [...] impaction. Electronically signed by: Osorio Maza M.D. us Meir Ibrahim MD IMG XR PROCEDURES Final [...] on 2017. Lymphocyte pct 24.3 % [facility] Comment: Interpretive Data Percent [...] ORDERABLES Final Re sult Performing Organization Address [facility] Co de Phone Number KEREN GAMEZ [address] Department [place] [address] * (ABNORMAL) Urinalysis reflex to microscopic and [...] tendency for uric acid stone formation. Source: [facility] Current Interpretive Data was last revised on [...] OR DERABLES Final Result Performing Organization Address City/[facility]/ZIP Co de Phone Number KEREN GAMEZ [address] Department [place] [address] * (ABNORMAL) CBC with auto differential (01/22/2025 11:38 AM CDT) WBC 6.53 3.80 - 9.90 K/cumm Hgb 14.7 11.9 - 15.5 g/dL [facility] Hct 46.1(H) 35.6 - 45.5 % [facility] Plt 343 150 - 400 K/cumm [facility] MPV 10.6 9.1 - 12.3 fL [facility] RBC 5.41(H) 3.90 - 5.20 M/cumm [facility] MCV 85.2 81.3 - 96.4 fL [facility] MCH 27.2 27.1 - 33.3 pg [facility] MCHC 31.9(L) 32.3 - 35.7 g/dL [facility] RDW CV 14.4 11.1 - 14.9 % [facility] RDW SD 45.0 35.7 - 48.1 fL [facility] NRBC abs 0.00 0.00 - 0.01 K/cumm [facility] Blood 01/22/2025 11:3 8 AM CDT 01/22/2025 11:38 AM CDT Meir Ibrahim MD LAB BLOOD ORDERABLES Final Re sult [facility] [address] Department [place] [address] * (ABNORMAL) Protime-INR (01/12/2025 3:07 PM CDT) PT 20.2(H) 10.2 - 13.5 sec INR 1.81(H) 0.90 - 1.20 [facility] Comment: Interpretive data Oral anticoagulant therapeutic ranges: Venous thromboembolism prophylaxis or treatment: 2.0-3.0 CARDIOLOGY Standard range: 2.0-3.0 High-intensity range: 2.5-3.5 Refer to indication-specific guidelines for appropriate target ranges for prosthetic heart valve replacement. Current interpretive data was last revised on 2019. Blood 01/12/2025 3:07 PM CDT 01/12/2025 3:07 PM CDT Narrative [facility] - 01/12/2025 3:25 PM CDT Patient is just starting on warfarin and will have additional lab that need drawn. Roxanne Werner MD LAB BLOOD ORDERABLES F inal Result KEREN GAMEZ [address] Department [place] [address] * Screening Mammogram Bilateral W Gustavo (01/04/2025 [...] BLOOD ORDERABLES F inal Result KEREN GAMEZ [address] [facility] Department [place] [address] * Lipid panel (12/18/2024 2:51 PM CDT) [...] NCEP Expert Panel. Circulation 2004;110:227 3. Martin Romero et al. [place] Cardiol. 2019September 07;5(5):540-548. doi: [...] BLOOD ORDERABLES F inal Result KEREN GAMEZ [address] Department [place] [address] * (ABNORMAL) Hemoglobin A1c (01/17/2024 11:43 AM CDT) Hgb A1C 6.6(H) 4.0 - 5.6 % Estimated Average Glucose 143 mg/dL KEREN BROWNLEE ([place]) Comment: The ADA recommends reporting an estimated Average Glucose (eAG) with all Hemoglobin A1c results using the equation derived from a study of 507 normal and diabetic adults. Minority populations were underrepresented and children were not included. (Diabetes Care 31:5180-6472, 2008). The eAG is not equivalent to a fasting glucose. 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 MF: SONIDO Report ID: [id number] Reading Location: [place] [address] Karolyn Evans NP IM DXA PROCEDURES Final Res ult * HM HEPATITIS C SCREENING (01/29/2022) SCRIBED HCV ab non Blood us Historical Provider HEALTH MAINTENANCE Final Result * COLONOSCOPY (07/15/2020 11:52 AM [employer]) Anatomical Region Laterality Modality Other Narrative Procedure Note Victor Manuel Noguera MD - 07/15/2020 11:52 AM CST [facility] Patient Name: Arabella Hankins Procedure Date: 07/15/2020 11:52 AM Date of : 1950 Admit Type: Outpatient Age: 70 Gender: Female Note Status: Finalized Attending MD: Victor Manuel Noguera M.D. Procedure Date: 07/15/2020 Procedure: Colonoscopy Indications: High risk colon cancer surveillance: Personalhistory of colonic polyps, Last colonoscopy: 2016 Providers: Victor Manuel Noguera M.D., ADRIENNE Lemus [...] by the physician, the nurse and the geodetic survey director in the procedure room. Mental Status Examination: [...] for surveillance. Procedure Code(s): --- Professional --- 62858, Colonoscopy, flexible; with removal of tumor(s), polyp(s), or other lesion(s) by snare technique 76001, 59, Colonoscopy, flexible; with biopsy,single or multiple Diagnosis Code(s): --- Professional --- K63.5, Polyp of colon Z86.010, Personal history of colonic polyps K57.30, Diverticulosis of large intestine without perforation or abscess without bleeding CPT copyright 2019 [employer]. All rights reserved. The codes documented in this report are preliminary and upon canceling and cutting control clerk reviewmay be revised to meet current compliance requirements. Electronically signed by Victor Manuel Noguera M.D. Victor Manuel Noguera M.D. 07/15/2020 12:24:51 PM Number of Addenda: 0 Note Initiated On: 07/15/2020 11:52 AM Victor Manuel Noguera MD ENDOSCOPY PROCEDURES Fi nal Result from Last 3 Months or Most Recently Relevant to Health Maintenance Insurance UHC MEDICARE ADVANTAGE [facility] MEDIC[facility] Address: [address] [address] [employer]HC MEDICARE ADVANTAGE [facility] MEDICARE Address: [address] [address] [place] [address] [employer]HC MEDICARE ADVANTAGE [facility] MEDICARE Address: [facility] [address] [place] [address] Advance Directives For more information, please contact: [phone] * Full Code (Latest Code Status on File) Date Activated Date Inactivated Comments 06/06/2020 6:21 PM 06/10/2020 10:52 PM * Full Code Date Activated Date Inactivated Comments 06/06/2020 6:21 PM 06/06/2020 6:21 PM Care Teams Freelance Art Director Relationship Specialty Start Date End Date Meir Ibrahim MD [address] [place] [address] PCP - General Internal Medicine 01/17/25 Roxanne Werner MD [address] [place] [address] Consulting Physician Cardiology 07/31/21 Ata Bronson DPM [address] [place] [address] Consulting Physician Foot and Ankle Surg 07/31/21
--- OUTSIDE RECORDS SUMMARY | 2025-03-31 08:02 | XMS_ITS | Encounter Summary ---
Author Organization [facility] Address [address] [place] [address] Care Team Providers Care Processing Clerk Name Role Phone Michael Smith MD Primary Care Provider [phone] Encounter Details Date Type Department Care Team (Late st Contact Info) Description 04/13/[address] 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
--- OUTSIDE RECORDS SUMMARY | 2025-03-31 08:02 | XMS_ITS | Encounter Summary ---
Author Organization [facility] Address [address] [facility] Attn: Epic Prelude ADT CELESTE SABA [address] Care Team Providers Care Pharmacology Teacher Name Role Phone Michael Smith MD Primary Care Provider Encounter Details Date Type Department Care Team (Late st Contact Info) Description 08/25/1993 Outpatient Historical Michael Smith MD [address] [place] [address] Social History Tobacco Use Types Packs/Day Years Used Date Smoking Tobacco: Never Assessed Comments Unknown Sex and Gender Information Value Date Recorded Sex Assigned at Not on file Legal 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 Female 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 DEV OPS ENGINEER Gender Identity Not on file Sexual Orientation Not on file documented as of this encounter Plan of Treatment Not on file documented as of this encounter Visit Diagnoses Not on filedocumented in this encounter Additional Health Concerns Infection Onset Date Last Indicated Resolved Time R/O COVID-19 05/17/2020 05/20/2020 05/20/2020 3:21 PM DEV OPS ENGINEER documented as of this encounter Care Teams Pharmacology Teacher Relationship Specialty Start Date End Date Michael Smith MD [address] [place] [address] PCP - General 04/28/01 10/23/20 documented as of this encounter
--- OUTSIDE RECORDS SUMMARY | 2025-03-31 08:02 | XMS_ITS | Encounter Summary ---
Author Organization [facility] Address [address] [place] [address] Care Team Providers Care Panelboard Tank Pumper Name Role Phone Michael Smith MD Primary Care Provider [phone] Encounter Details Date Type Department Care Team (Late st Contact Info) Description 11/17/2004 Outpatient Historical [facility] Support Serv. (Adt Cardiology-[facility]) [address] [place] [address] Jerman Burrell MD [address] 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 Gender Identity Not on file Sexual Orientation Not on file documented as of this encounter Plan of Treatment Not on file documented as of this encounter Visit Diagnoses Not on filedocumented in this encounter Additional Health Concerns Infection Onset Date Last Indicated Resolved Time R/O COVID-19 05/17/2020 05/20/2020 05/20/2020 3:21 PM SLAG MOTOR OPERATOR documented as of this encounter Care Teams Panelboard Tank Pumper Relationship Specialty Start Date End Date Michael Smith MD [address] [facility] [address] [place] [address] PCP - General 04/28/01 10/23/20 documented as of this encounter
--- OUTSIDE RECORDS SUMMARY | 2025-03-31 08:02 | XMS_ITS | Encounter Summary ---
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 ART TECHNICIAN Gender Identity Female 08/19/2020 7:43 PM CDT Sexual Orientation Straight 09/24/2020 8: 49 AM CDT 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
--- OUTSIDE RECORDS SUMMARY | 2025-03-31 08:02 | XMS_ITS | Encounter Summary ---
Author Organization [facility] Address [address] [place] [address] Care Team Providers Care Human Resources Operations Manager Name Role Phone Michael Smith MD Primary Care Provider [phone] Encounter Details Date Type Department Care Team (Latest Contact Info) Description 11/02/2006 Outpatient Historical [facility] Jonel Vsáquez MD [address] [facility] [address] [place] [address] Other Screening Mammogram (Primary Dx) Social History Tobacco Use Types Packs/Day Years Used Date Smoking Tobacco: Never Assessed Comments Unknown Sex and Gender Information Value Date Recorded Sex Assigned at Not on file Legal Sex Female 4:52 AM SERVICE SUPERVISOR Gender Identity Not on file Sexual Orientation Not on file documented as of this encounter Plan of Treatment Not on file documented as of this encounter Visit Diagnoses Diagnosis Other screening mammogram- Primary documented in this encounter Additional Health Concerns Infection Onset Date Last Indicated Resolved Time R/O COVID-19 05/17/2020 05/20/2020 05/20/2020 3:21 PM SERVICE SUPERVISOR documented as of this encounter Care Teams Human Resources Operations Manager Relationship Specialty Start Date End Date Michael Smith MD [address] [facility] [address] [place] [address] PCP - General 04/28/01 10/23/20 documented as of this encounter
== END 2025-03-31 07:58 | disposition home or self-care (01) ==
PROVIDERS: PCP Internal Medicine; Visit Provider Internal Medicine
DX: R55 Syncope and collapse (principal); R51.9 Headache, unspecified
CPT/HCPCS: 70544; 70547